=== PATIENT | female | born 1980 | race African-American/Black ===

== ENCOUNTER 2016-10-05 09:44 | Emergency (ER) | payer BC, OTHER ==
[2016-10-05 09:56] VITALS: TEMP 97.3; BMI 26.6
--- NOTE | 2016-10-05 10:11 | PDOC ---
History of Present Illness - General History Source: Patient, Old Records Exam Limitations: No Limitations - History of Present Illness Initial Comments: 10/05/16 10:28 The patient is a 35-year-old woman with a significant past medical history of hypertension, hypercholesterolemia, coronary artery disease, myocardial infarction, congestive heart failure, non-insulin dependent diabetes mellitus, severe gastroparesis, chronic kidney disease cervical Ca who presents to the emergency department via EMS for further evaluation of chest pain this morning. She woke up, had an episode of emesis (non-bloody/non-bilious) and experienced chest pain at approximately 6:00AM this morning. Patient admits that her symptoms are attributed to her gastroparesis. She states that her chest pain is mid-sternal,non radiating, sharp constant with a 10/10 in severity. She reports associated symptoms of nausea and diarrhea. She reports compliance with Reglan without significant relief. She recently had a rotator cuff surgery, for which she finished her narcotics. Previous endoscopy in the past, performed by her Cuff Maker, Dr. Wan Sifuentes. Patient is unaware when it was performed and the results. She denies fever, chills, cough, hemoptysis, diaphoresis, shortness of breath, headache. She denies jaw/ back pain lower extremity pain/swelling. She denies dysuria, hematuria, urinary frequency and urgency. Allergies: Cephalexin Monohydrate. Past Surgical History: Caesarian Section. Stent placements x3. Rotator cuff repair. Social History: Former tobacco use. History of drug abuse. Current Marijuana use. No ETOH use. Primary Care Physician: Dr. Tiago Jaeger [phone] Core Winder: Dr. Juan Manuel Ng [phone] Cuff Maker: Dr. Wan Sifuentes [phone] <Hyacinth Roberts - Last Filed: 10/05/16 11:48> <Sukhdeep Harper - Last Filed: 10/05/16 15:06> - General Chief Complaint: Chest Pain Stated Complaint: POST-SURG/ CHEST, SHOULDER PAIN Time Seen by Provider: 10/05/16 10:08 Past History <Hyacinth Roberts - Last Filed: 10/05/16 11:48> - Past Medical History Anemia: No Asthma: No Cancer: (cervical ca) Cardiac Disorders: Yes ([place] X 6) CVA: No COPD: No CHF: Yes Dementia: No Diabetes: Yes GI Disorders: Yes (gastroparesis) Disorders: No HTN: Yes Hypercholesterolemia: Yes Liver Disease: No Psychiatric Problems: Yes (anxiety) Suicide Attempt (Hx): No Seizures: No Thyroid Disease: No - Surgical History Abdominal Surgery: No Appendectomy: No Cardiac Surgery: Yes (4 STENTS) Cholecystectomy: No Lung Surgery: No Neurologic Surgery: No Orthopedic Surgery: No - Reproductive History (#): 5 Para: 0 Cervical CA: Yes Dysfunctional Uterine Bleeding: Yes Ectopic : Yes Endometrial CA: Yes Therapeutic (s) & number: Yes (1) Spontaneous : 4 - Immunization History Immunization Up to Date: Yes - Psycho/Social/Smoking Cessation Hx Anxiety: No Suicidal Ideation: No Smoking Status: Yes (QUIT 3 MONTHS AGO) Smoking History: Never smoked Have you smoked in the past 12 months: Yes Number of Cigarettes Smoked Daily: 1 If you are a former smoker, when did you quit?: 3 MONTHS 'Breaking Loose' booklet given: 08/25/16 Hx Alcohol Use: No Drug/Substance Use Hx: No Substance Use Type: None Hx Substance Use Treatment: No <Sukhdeep Harper - Last Filed: 10/05/16 15:06> - Past Medical History Allergies/Adverse Reactions: Allergies Allergy/AdvReac Type Severity Reaction Status Date / Time cephalexin monohydrate Allergy Severe Hives Verified 10/05/16 09:51 [From [employer]] Home Medications: Ambulatory Orders Aspirin [Aspirin EC] 81 mg PO DAILY 11/13/15 Acetaminophen [Tylenol .Regular Strength -] 650 mg PO Q6H PRN #0 tablet Atorvastatin Ca [Lipitor] 80 mg PO HS tablet 06/27/16 Labetalol HCl [Normodyne -] 200 mg PO BID tablet 06/27/16 Sitagliptin Phosphate [Januvia -] 25 mg PO DAILY@0700 tab 06/27/16 Metformin HCl 500 mg PO BID 08/25/16 Ondansetron [Zofran -] 4 mg PO BID PRN 08/25/16 Ticagrelor [Brilinta -] 90 mg PO BID 08/25/16 Oxycodone HCl/Acetaminophen [Percocet 5-325 mg Tablet] 1 - 2 tab PO Q6H #50 tab MDD 8 09/02/16 Ondansetron [Zofran *Odt*] 8 mg SL TID PRN #30 od.tablet 10/05/16 Review of Systems - Review of Systems Constitutional: No: Chills, Fever Respiratory: No: Cough, Shortness of Breath Cardiac (ROS): Yes: Chest Pain ABD/GI: Yes: Nausea, Vomiting. No: Diarrhea : No: Dysuria All Other Systems: Reviewed and Negative <Sukhdeep Harper - Last Filed: 10/05/16 15:06> *Physical Exam - Vital Signs Last Vital Signs Temp Pulse Resp BP Pulse Ox 97.3 F L 75 20 150/107 98 10/05/16 09:47 10/05/16 09:47 10/05/16 09:47 10/05/16 09:47 10/05/16 09:47 - Physical Exam Comments: 10/05/16 10:28 GENERAL: The patient is awake, alert, and fully oriented. Appears uncomfortable secondary to nausea. Sitting up. Speaking full sentences. HEAD: Normal with no signs of trauma. EYES: Pupils equal, round and reactive to light, extraocular movements intact, sclera anicteric, conjunctiva clear with no pallor. ENT: Ears normal, nares patent, oropharynx clear without exudates. Slightly dry mucous membranes. NECK: Normal range of motion, supple without lymphadenopathy, JVD, or masses. LUNGS: Breath sounds equal, clear to auscultation bilaterally. No wheeze/ crackles. HEART: Regular rate and rhythm, normal S1 and S2 without murmur or rub. ABDOMEN: Soft. There is some epigastric discomfort to palpation. Nondistended. BS wnl. No guarding or rebound. No palpable masses. No hepatosplenomegaly. EXTREMITIES: Normal range of motion, no edema. No clubbing or cyanosis. No cords, erythema, or tenderness. NEUROLOGICAL: Cranial nerves II through XII grossly intact. Normal speech. PSYCH: Normal mood, normal affect. SKIN: Warm, Dry, normal turgor, no rashes or lesions noted. <Hyacinth Roberts - Last Filed: 10/05/16 11:48> - Vital Signs Last Vital Signs Temp Pulse Resp BP Pulse Ox 97.3 F L 75 20 150/107 98 10/05/16 09:47 10/05/16 09:47 10/05/16 09:47 10/05/16 09:47 10/05/16 09:47 <Sukhdeep Harper - Last Filed: 10/05/16 15:06> Heart Score/ECG Review #1 ECG reviewed & interpreted by me at: 09:49 General ECG Interpretation: Sinus Rhythm, Normal Rate (75), Normal Intervals ( qtc 453), No acute ischemic changes Compared to previous ECG there are: No significant change (06/26/16) <Sukhdeep Harper - Last Filed: 10/05/16 15:06> ED Treatment Course - LABORATORY CBC & Chemistry Diagram: 10/05/16 10:17 10/05/16 10:55 <Hyacinth Roberts - Last Filed: 10/05/16 11:48> - LABORATORY CBC & Chemistry Diagram: 10/05/16 10:17 10/05/16 10:55 <Sukhdeep Harper - Last Filed: 10/05/16 15:06> Medical Decision Making - Medical Decision Making 10/05/16 10:59 A portion of this note was documented by scribe services under my direction. I have reviewed the details of the note, within reason, and agree with the documentation with the following case summary and management plan written by me. 36-year-old female with multiple medical problems including diabetic gastroparesis with some admissions in the past presents with nausea/vomiting/ chest pain typical of her gastroparesis exacerbations. Vitals as noted. Exam as noted with epigastric discomfort to palpation, slight dehydration 36-year-old female with likely exacerbation of her gastroparesis with nausea/ vomiting/chest discomfort, she has known CAD so will rule out primary cardiac process. Labs including troponin EKG, chest x-ray Pain control, nausea control, IV fluids, antacid Reassess 10/05/16 15:02 Slight dehydration on labs, otherwise no leukocytosis and normal troponin. UA was positive leuk esterase but no white blood cells. Patient feels much better after IV fluids and Zofran, tolerating by mouth, abdominal exam remains benign. No further chest pain. Agrees with discharge plan, understands return criteria. <Sukhdeep Harper Last Filed: 10/05/16 15:06> *DC/Admit/Observation/Transfer - Attestations Scribe Attestion: 10/05/16 10:28 Documentation prepared by Hyacinth Roberts, acting as medical librarian for Sukhdeep Harper MD. <Hyacinth Roberts - Last Filed: 10/05/16 11:48> <Sukhdeep Harper - Last Filed: 10/05/16 15:06> Diagnosis at time of Disposition: Diabetic gastroparesis, Chest discomfort - Discharge Dispostion Disposition: HOME Condition at time of disposition: Improved - Prescriptions Prescriptions: Ondansetron [Zofran *Odt*] 8 mg SL TID PRN #30 od.tablet PRN Reason: Nausea - Referrals Referrals: Tiago Jaeger MD [Primary Care Provider] - - Patient Instructions Printed Discharge Instructions: DI for Gastroparesis Additional Instructions: Activity as tolerated. Stay hydrated. Blood tests today showed some dehydration, otherwise no acute abnormalities. Continue your medications as previously prescribed by your physician. You should follow up with Dr. Jaeger as soon as possible regarding today's emergency department visit. Return to the emergency department for any new or concerning symptoms, particularly persistent or worsening pain, persistent vomiting or dehydration, chest pain or difficulty breathing.
[2016-10-05] MEDS ORDERED: SODIUM CHLORIDE 1,000 ML IV ONE (10:17)
[2016-10-05] MEDS ORDERED: METOCLOPRAMIDE HCL INJECTION 10 MG/2 ML VIAL IVPB ONE (10:17)
[2016-10-05] MEDS ORDERED: FAMOTIDINE 20 MG/50 ML IVPB 50 ML IVPB ONE ×2 (10:25→10:45)
[2016-10-05] MEDS ORDERED: HYDROmorphone HCL CARPU-JECT 1 MG/1 ML DISP.SYRIN IVPUSH ONE ×2 (10:25→12:38)
[2016-10-05] MEDS ORDERED: ONDANSETRON 4 MG/2 ML VIAL IVPUSH ONE ×2 (10:25→12:38)
[2016-10-05] MEDS ORDERED: ONDANSETRON 4 MG/2 ML VIAL ONE ×2 (10:31→12:49)
--- NOTE | 2016-10-05 10:31 | EKG ---
Test Reason : Blood Pressure : / mmHG Vent. Rate : 075 BPM Atrial Rate : 075 BPM P-R Int : 172 ms QRS Dur : 084 ms QT Int : 406 ms P-R-T Axes : 053 020 053 degrees QTc Int : 453 ms NORMAL SINUS RHYTHM POSSIBLE LEFT ATRIAL ENLARGEMENT BORDERLINE ECG WHEN COMPARED WITH ECG OF 26-JUN-2016 19:33, NO SIGNIFICANT CHANGE WAS FOUND Confirmed by ANDREI PERALTA MD ([id number]) on 10/05/2016 10:31:10 AM Referred By: Confirmed By:ANDREI PERALTA MD
[2016-10-05] MEDS ORDERED: HYDROmorphone HCL CARPU-JECT 1 MG/1 ML DISP.SYRIN ONE ×2 (10:35→12:49)
[2016-10-05 11:01] LABS: BASOPHIL 0.8 % (0-2.0); EOSINOPHIL 0.7 % (0-4.5); MCH 29.4 pg (25.7-33.7); MCHC 32.7 g/dl (32.0-36.0); MEAN PLT VOLUME 7.6 fl (7.5-11.1); NEUTROPHILS 81.5 % (42.8-82.8); PLATELET COUNT 300 K/MM3 (134-434); RDW 14.7 % (11.6-15.6); WHITE BLOOD COUNT 11.9 K/mm3 (4.0-10.0)
[2016-10-05 11:52] LABS: ALBUMIN 4.7 g/dl (3.4-5.0); BILIRUBIN,TOTAL 0.5 mg/dL (0.2-1.0); CALCIUM 9.7 mg/dL (8.5-10.1); CREATININE 1.1 mg/dL (0.55-1.02); TOT PROT 8.8 g/dl (6.4-8.2)
[2016-10-05 11:55] LABS: TROPONIN I < 0.02 ng/ml (0.00-0.05)
[2016-10-05 13:21] LABS: URINE APPEARANCE CLEAR; URINE BILIRUBIN NEGATIVE (NEGATIVE); URINE COLOR COLORLESS; URINE GLUCOSE (UA) 3+ (NEGATIVE); URINE KETONE 1+ (NEGATIVE); URINE NITRITE NEGATIVE (NEGATIVE); URINE PROTEIN NEGATIVE (NEGATIVE); URINE UROBILINOGEN NEGATIVE E.U./dl (0.2-1.0)
[2016-10-05 13:44] LABS: URINE BLOOD 2+ (NEGATIVE); URINE LEUK ESTERASE 3+ (NEGATIVE)
[2016-10-05 13:58] LABS: URINE MUCUS RARE; URINE RBC <1 /hpf (0-3)
[2016-10-05] MEDS ORDERED: NITROFURANTOIN MACROCRYSTAL 50 MG CAPSULE (FP) PO SCH (14:00)
[2016-10-05] MEDS ORDERED: NITROFURANTOIN MACROCRYSTAL 50 MG CAPSULE (FP) ONE (14:59)
[2016-10-05] MEDS ORDERED: ONDANSETRON *ODT* 4 MG TABLET SL ONE (15:08)
[2016-10-05 15:09] VITALS: BP 132/78; PULSE 78
[2016-10-05] MEDS ORDERED: ONDANSETRON *ODT* 4 MG TABLET ONE (15:11)
== END 2016-10-05 15:10 | disposition home or self-care (01) ==
LOC: JER 09:44
PROC: 3E033GC Introduction of Other Therapeutic Substance into Peripheral Vein, Percutaneous Approach (ICD-10-PCS; principal; 2016-10-05)
PROC: 3E033NZ Introduction of Analgesics, Hypnotics, Sedatives into Peripheral Vein, Percutaneous Approach (ICD-10-PCS; 2016-10-05)
PROC: 3E0337Z Introduction of Electrolytic and Water Balance Substance into Peripheral Vein, Percutaneous Approach (ICD-10-PCS; 2016-10-05)
DX: E11.43 Type 2 diabetes mellitus with diabetic autonomic (poly)neuropathy (principal); K31.84 Gastroparesis; I10 Essential (primary) hypertension; Z85.41 Personal history of malignant neoplasm of cervix uteri; E78.00 Pure hypercholesterolemia, unspecified; F41.9 Anxiety disorder, unspecified; Z95.5 Presence of coronary angioplasty implant and graft; I50.9 Heart failure, unspecified; Z87.891 Personal history of nicotine dependence
CPT/HCPCS: 36415; 80053; 81003; 81015; 82550; 82553; 83690; 83735; 84484; 84703; 85025; 93005; 93010; 99285-25

== ENCOUNTER 2016-10-05 22:55 | Emergency (ER) | payer BC ==
[2016-10-05 23:02] VITALS: BP 158/107; PULSE 125; TEMP 98.4; BMI 26.6
[2016-10-05] MEDS ORDERED: HYDROmorphone HCL CARPU-JECT 1 MG/1 ML DISP.SYRIN IVPB ONE (23:56)
[2016-10-05] MEDS ORDERED: FAMOTIDINE 20 MG/50 ML IVPB 50 ML IVPB ONE (23:56)
[2016-10-05] MEDS ORDERED: ONDANSETRON 4 MG/2 ML VIAL IVPB ONE (23:56)
[2016-10-06] MEDS ORDERED: HYDROmorphone HCL CARPU-JECT 1 MG/1 ML DISP.SYRIN ONE (00:04)
[2016-10-06] MEDS ORDERED: FAMOTIDINE 20 MG/50 ML IVPB 50 ML IVPB ONE (00:04)
[2016-10-06] MEDS ORDERED: ONDANSETRON 4 MG/2 ML VIAL ONE (00:04)
[2016-10-06 00:22] LABS: BASOPHIL 0.4 % (0-2.0); EOSINOPHIL 0.1 % (0-4.5); MCH 29.9 pg (25.7-33.7); MCHC 33.7 g/dl (32.0-36.0); MEAN CELL VOLUME 88.7 fl (80-96); MEAN PLT VOLUME 7.7 fl (7.5-11.1); NEUTROPHILS 85.2 % (42.8-82.8); PLATELET COUNT 346 K/MM3 (134-434); RDW 14.8 % (11.6-15.6); WHITE BLOOD COUNT 14.6 K/mm3 (4.0-10.0)
--- NOTE | 2016-10-06 00:38 | PDOC ---
[id number]: No Limitations - History of Present Illness Initial Comments: 10/06/16 00:46 The patient is a 36 year old female, with a significant past medical history of hypertension, hypercholesterolemia, coronary artery disease, myocardial infarction, congestive heart failure, non-insulin dependent diabetes mellitus, severe gastroparesis, chronic kidney disease, cervical CA, who presents to the emergency department with epigastric pain onset today. She reports that the patient radiates from mild to moderate, without radiation or modifying symptoms. She notes that she has been taking Reglan with minimal to no relief of her symptoms. The patient was seen in the ED earlier today for the same symptoms and was discharged same day after improvement of symptoms. The patient notes that she has had an endoscopy in the past but does not remember the results or when it was performed. She reports that her last marijuana use was 2 weeks ago. The patient denies shortness of breath, headache and dizziness. Denies fever, chills, nausea, vomit, diarrhea and constipation. Denies dysuria, frequency, urgency and hematuria. Allergies: Cephalexin Monohydrate. Past Surgical History: Caesarian Section. Stent placements x3. Rotator cuff repair. Social History: Former tobacco use. History of drug abuse. Current Marijuana use. No ETOH use. Primary Care Physician: Dr. Tiago Jaeger [phone] Photolithographer: Dr. Juan Manuel Ng [phone] Medical Assistant Instructor: Dr. Wan Sifuentes [phone] <Keshawn Castro - Last Filed: 10/06/16 00:46> - General History Source: Patient Exam Limitations: No Limitations <Juan Meyers - Last Filed: 10/10/16 07:53> - General Chief Complaint: Chest Pain Stated Complaint: CHEST PAIN Time Seen by Provider: 10/05/16 23:33 Past History <Keshawn Castro - Last Filed: 10/06/16 00:46> - Past Medical History Anemia: No Asthma: No Cancer: (cervical ca) Cardiac Disorders: Yes ([place] X 6) CVA: No COPD: No CHF: Yes Dementia: No Diabetes: Yes GI Disorders: Yes (gastroparesis) Disorders: No HTN: Yes Hypercholesterolemia: Yes Liver Disease: No Psychiatric Problems: Yes (anxiety) Suicide Attempt (Hx): No Seizures: No Thyroid Disease: No - Surgical History Abdominal Surgery: No Appendectomy: No Cardiac Surgery: Yes (4 STENTS) Cholecystectomy: No Lung Surgery: No Neurologic Surgery: No Orthopedic Surgery: No - Reproductive History (#): 5 Para: 0 Cervical CA: Yes Dysfunctional Uterine Bleeding: Yes Ectopic : Yes Endometrial CA: Yes Therapeutic (s) & number: Yes (1) Spontaneous : 4 - Immunization History Immunization Up to Date: Yes - Psycho/Social/Smoking Cessation Hx Anxiety: No Suicidal Ideation: No Smoking Status: Yes (QUIT 3 MONTHS AGO) Smoking History: Never smoked Have you smoked in the past 12 months: Yes Number of Cigarettes Smoked Daily: 1 If you are a former smoker, when did you quit?: t-19 Information on smoking cessation initiated: No 'Breaking Loose' booklet given: 08/25/16 Hx Alcohol Use: No Drug/Substance Use Hx: No Substance Use Type: Marijuana Hx Substance Use Treatment: No <Juan Meyers - Last Filed: 10/10/16 07:53> - Past Medical History Allergies/Adverse Reactions: Allergies Allergy/AdvReac Type Severity Reaction Status Date / Time cephalexin monohydrate Allergy Severe Hives Verified 10/05/16 23:00 [From [employer]] Home Medications: Ambulatory Orders Aspirin [Aspirin EC] 81 mg PO DAILY 11/13/15 Acetaminophen [Tylenol .Regular Strength -] 650 mg PO Q6H PRN #0 tablet Metformin HCl 500 mg PO BID 08/25/16 Ticagrelor [Brilinta -] 90 mg PO BID 08/25/16 Oxycodone HCl/Acetaminophen [Percocet 5-325 mg Tablet] 1 - 2 tab PO Q6H #50 tab MDD 8 09/02/16 Ondansetron [Zofran *Odt*] 8 mg SL TID PRN #30 od.tablet 10/05/16 Atorvastatin Ca [Lipitor] 80 mg PO HS #30 tablet 10/09/16 Labetalol HCl [Normodyne -] 200 mg PO BID #60 tablet 10/09/16 Sitagliptin Phosphate [Januvia -] 25 mg PO DAILY@0700 #30 tab 10/09/16 Ticagrelor [Brilinta -] 90 mg PO BID tablet 10/09/16 Review of Systems - Review of Systems Able to Perform ROS?: Yes Comments:: 10/06/16 00:46 GENERAL/CONSTITUTIONAL: No fever or chills. No weakness. HEAD, EYES, EARS, NOSE AND THROAT: No change in vision. No ear pain or discharge. No sore throat. CARDIOVASCULAR: No chest pain or shortness of breath RESPIRATORY: No cough, wheezing, or hemoptysis. GASTROINTESTINAL: +Epigastric pain. No nausea, vomiting, diarrhea or constipation. GENITOURINARY: No dysuria, frequency, or change in urination. MUSCULOSKELETAL: No joint or muscle swelling or pain. No neck or back pain. SKIN: No rash NEUROLOGIC: No headache, vertigo, loss of consciousness, or change in strength/ sensation. ENDOCRINE: No increased thirst. No abnormal weight change HEMATOLOGIC/LYMPHATIC: No anemia, easy bleeding, or history of blood clots. ALLERGIC/IMMUNOLOGIC: No hives or skin allergy. <Keshawn Castro - Last Filed: 10/06/16 00:46> *Physical Exam - Vital Signs Last Vital Signs Temp Pulse Resp BP Pulse Ox 98.4 F 125 H 158/107 99 10/05/16 23:00 10/05/16 23:00 10/05/16 23:00 10/05/16 23:00 - Physical Exam Comments: 10/06/16 00:46 GENERAL: Awake, alert, and fully oriented, in no acute distress HEAD: No signs of trauma, normocephalic, atraumatic EYES: PERRLA, EOMI, sclera anicteric, conjunctiva clear ENT: Auricles normal inspection, hearing grossly normal, nares patent, oropharynx clear without exudates. Moist mucosa NECK: Normal ROM, supple, no lymphadenopathy, JVD, or masses LUNGS: No distress, speaks full sentences, clear to auscultation bilaterally HEART: Regular rate and rhythm, normal S1 and S2, no murmurs, rubs or gallops, peripheral pulses normal and equal bilaterally. ABDOMEN: Soft, nontender, normoactive bowel sounds. No guarding, no rebound. No masses EXTREMITIES: Normal inspection, Normal range of motion, no edema. No clubbing or cyanosis. NEUROLOGICAL: Cranial nerves II through XII grossly intact. Normal speech, normal gait, no focal sensorimotor deficits SKIN: Warm, Dry, normal turgor, no rashes or lesions noted. <GloriaKeshawnjayy Burrell - Last Filed: 10/06/16 00:46> - Vital Signs Last Vital Signs Temp Pulse Resp BP Pulse Ox 98.4 F 125 H 158/107 99 10/05/16 23:00 10/05/16 23:00 10/05/16 23:00 10/05/16 23:00 - Physical Exam Comments: 10/10/16 07:53 CORRECTION TO SCRIBE NOTE: +TTP epigastric. Ocasio sign negative. <Juan Meyers - Last Filed: 10/10/16 07:53> Heart Score/ECG Review - History History: Slightly suspicious - Electrocardiogram EKG: Normal - Age Age: </= 45 - Risk Factors Based on the list above the patient has:: >/=3 risk factors or Hx atherosclerotic disease - Troponin Troponin: </= normal limit - Score Heart Score - Total: 2 #1 ECG reviewed & interpreted by me at: 00:50 10/06/16 01:11 NSR 100, QTC 497 msec, normal axis, normal intervals, no std/brandon <Juan Meyers - Last Filed: 10/10/16 07:53> ED Treatment Course - LABORATORY CBC & Chemistry Diagram: 10/06/16 00:14 10/06/16 00:14 - ADDITIONAL ORDERS Additional order review: 10/06/16 00:14 RBC 4.63 MCV 88.7 MCHC 33.7 RDW 14.8 MPV 7.7 Neutrophils % 85.2 H Lymphocytes % 9.3 Monocytes % 5.0 Eosinophils % 0.1 D Basophils % 0.4 - Medications Given in the ED: ED Medications Discontinued Medications Generic Name Dose Route Start Last Admin Trade Name Freq PRN Reason Stop Dose Admin Hydromorphone HCl 1 mg 10/05/16 23:56 10/06/16 00:12 Dilaudid Injection - IVPB 10/05/16 23:57 1 mg ONCE ONE Administration Famotidine/Sodium Chloride 50 mls @ 100 mls/hr 10/05/16 23:56 10/06/16 00:12 Pepcid 20 Mg Premixed Ivpb - IVPB 10/06/16 00:25 100 mls/hr ONCE ONE Administration Ondansetron HCl 4 mg 10/05/16 23:56 10/06/16 00:12 Zofran Injection IVPB 10/05/16 23:57 4 mg ONCE ONE Administration <Keshawn Castro - Last Filed: 10/06/16 00:46> - LABORATORY CBC & Chemistry Diagram: 10/06/16 00:14 10/06/16 00:14 - ADDITIONAL ORDERS Additional order review: 10/06/16 00:14 RBC 4.63 MCV 88.7 MCHC 33.7 RDW 14.8 MPV 7.7 Neutrophils % 85.2 H Lymphocytes % 9.3 Monocytes % 5.0 Eosinophils % 0.1 D Basophils % 0.4 - Medications Given in the ED: ED Medications Discontinued Medications Generic Name Dose Route Start Last Admin Trade Name Obdulioq PRN Reason Stop Dose Admin Hydromorphone HCl 1 mg 10/05/16 23:56 10/06/16 00:12 Dilaudid Injection - IVPB 10/05/16 23:57 1 mg ONCE ONE Administration Famotidine/Sodium Chloride 50 mls @ 100 mls/hr 10/05/16 23:56 10/06/16 00:12 Pepcid 20 Mg Premixed Ivpb - IVPB 10/06/16 00:25 100 mls/hr ONCE ONE Administration Ondansetron HCl 4 mg 10/05/16 23:56 10/06/16 00:12 Zofran Injection IVPB 10/05/16 23:57 4 mg ONCE ONE Administration <Juan Meyers - Last Filed: 10/10/16 07:53> Medical Decision Making - Medical Decision Making 10/06/16 00:38 A portion of this note was documented by scribe services under my direction. I have reviewed the details of the note, within reason, and agree with the documentation with the following case summary and management plan written by me. Patient treated in the ED. Nursing notes are reviewed and incorporated into the medical decision-making. Vital signs reviewed. Peripheral IV access obtained by the nurse, laboratory studies are drawn and sent, reviewed and interpreted by myself. Vital Signs Temp Pulse Resp BP Pulse Ox 98.4 F 125 H 158/107 99 10/05/16 23:00 10/05/16 23:00 10/05/16 23:00 10/05/16 23:00 36 year old female with past medical history of hypertension, hyperlipidemia, coronary disease, myocardial infarction, congestive heart failure, diabetes, severe gastroparesis, chronic renal disease returns back to the emergency department for persistent gastroparesis. The patient was seen earlier today for similar symptoms where she was worked up and was discharged. Patient reports that this is a epigastric pain that radiates into her chest. Not associated with shortness of breath or diaphoresis. Denies midsternal chest pressure. States that she is not taking any medications but the symptoms worsen. Again, this is her gastroparesis. Patient reports that this is her chronic gastroparesis. She denies any recent marijuana use states that this occurred 2 weeks ago. I suspect that this acute on chronic abdominal pain. We'll obtain labs, EKG and reassess. 10/06/16 01:11 CBC, BMP 10/06/16 00:14 10/06/16 00:14 CMP Sodium 134 mmol/L (136-145) L 10/06/16 00:14 Potassium 4.9 mmol/L (3.5-5.1) 10/06/16 00:14 Chloride 98 mmol/L (98-107) 10/06/16 00:14 Carbon Dioxide 21 mmol/L (21-32) 10/06/16 00:14 Anion Gap 15 (8-16) 10/06/16 00:14 BUN 14 mg/dL (7-18) 10/06/16 00:14 Creatinine 1.4 mg/dL (0.55-1.02) H D 10/06/16 00:14 Creat Clearance w eGFR 42.08 (>60) 10/06/16 00:14 Random Glucose 245 mg/dL (74-106) H 10/06/16 00:14 Calcium 9.9 mg/dL (8.5-10.1) 10/06/16 00:14 Total Bilirubin 0.5 mg/dL (0.2-1.0) 10/06/16 00:14 AST 37 U/L (15-37) D 10/06/16 00:14 ALT 31 U/L (12-78) 10/06/16 00:14 Alkaline Phosphatase 66 U/L (45-117) D 10/06/16 00:14 Creatine Kinase 349 IU/L (26-192) H D 10/06/16 00:14 Troponin I < 0.02 ng/ml (0.00-0.05) 10/06/16 00:14 Total Protein 9.9 g/dl (6.4-8.2) H 10/06/16 00:14 Albumin 5.2 g/dl (3.4-5.0) H 10/06/16 00:14 Lipase 231 U/L (73-393) 10/06/16 00:14 Repeat HR is 90. Patient reports significant relief and resolution of symptoms. Again, I suspect that this is gastroparesis. I had instructed the patient that she needs to follow up with Dr. Sifuentes as an outpatient. Counselled regarding marijuana use. The WBC is slightly elevated compared to this morning which I suspect is reactive. And the Cr is 1.4, which is slightly elevated from 1.1 this morning. 500cc of IVF given for the Cr. Will d/c with PMD follow up. I discussed the physical exam findings, ancillary test results and final diagnoses with the patient. I answered all of the patient's questions. The patient was satisfied with the care received and felt comfortable with the discharge plan and treatment plan. The patient will call their primary care physician within 24 hours to arrange follow-up and will return to the Emergency Department with any new, persistant or worsening symptoms. 10/06/16 01:14 Pt will go home by cab. <Juan Meyers - Last Filed: 10/10/16 07:53> *DC/Admit/Observation/Transfer - Attestations Scribe Attestion: 10/06/16 00:47 Documentation prepared by Keshawn Castro, acting as certified medical asst for Juan Meyers MD. <Keshawn Castro - Last Filed: 10/06/16 00:46> - Discharge Dispostion Admit: No <Juan Meyers - Last Filed: 10/10/16 07:53> Diagnosis at time of Disposition: Gastroparesis - Discharge Dispostion Disposition: HOME Condition at time of disposition: Improved - Referrals Referrals: Tiago Jaeger MD [Primary Care Provider] - Wan Sifuentes MD [Staff Physician] - - Patient Instructions Printed Discharge Instructions: DI for Gastroparesis Additional Instructions: Please follow up with your primary care physician and electronic pagination system operator.
[2016-10-06 00:48] LABS: ALBUMIN 5.2 g/dl (3.4-5.0); ANION GAP 15 (8-16); BILIRUBIN,TOTAL 0.5 mg/dL (0.2-1.0); CALCIUM 9.9 mg/dL (8.5-10.1); CO2 21 mmol/L (21-32); CREATININE 1.4 mg/dL (0.55-1.02); GLUCOSE,RANDOM 245 mg/dL (74-106); SGPT/ALT 31 U/L (12-78); TOT PROT 9.9 g/dl (6.4-8.2)
[2016-10-06 00:50] LABS: ALK PHOS 66 U/L (45-117); TROPONIN I < 0.02 ng/ml (0.00-0.05)
[2016-10-06 00:55] LABS: SGOT/AST 37 U/L (15-37)
[2016-10-06] MEDS ORDERED: SODIUM CHLORIDE 500 ML IV STA (00:57)
--- NOTE | 2016-10-06 15:37 | EKG ---
Test Reason : Blood Pressure : / mmHG Vent. Rate : 100 BPM Atrial Rate : 100 BPM P-R Int : 150 ms QRS Dur : 076 ms QT Int : 386 ms P-R-T Axes : 067 042 050 degrees QTc Int : 497 ms NORMAL SINUS RHYTHM POSSIBLE LEFT ATRIAL ENLARGEMENT PROLONGED QT ABNORMAL ECG WHEN COMPARED WITH ECG OF 05-OCT-2016 09:49, NO SIGNIFICANT CHANGE WAS FOUND Confirmed by DANI BHAKTA MD ([id number]) on 10/06/2016 3:36:43 PM Referred By: Confirmed By:DANI BHAKTA MD
== END 2016-10-06 01:35 | disposition home or self-care (01) ==
LOC: JER 22:55
PROC: 3E0337Z Introduction of Electrolytic and Water Balance Substance into Peripheral Vein, Percutaneous Approach (ICD-10-PCS; principal; 2016-10-05)
PROC: 3E033GC Introduction of Other Therapeutic Substance into Peripheral Vein, Percutaneous Approach (ICD-10-PCS; 2016-10-05)
PROC: 3E033NZ Introduction of Analgesics, Hypnotics, Sedatives into Peripheral Vein, Percutaneous Approach (ICD-10-PCS; 2016-10-05)
PROC: 3E033GC Introduction of Other Therapeutic Substance into Peripheral Vein, Percutaneous Approach (ICD-10-PCS; 2016-10-05)
DX: K31.84 Gastroparesis (principal); I25.2 Old myocardial infarction; I25.10 Atherosclerotic heart disease of native coronary artery without angina pectoris; I10 Essential (primary) hypertension; Z95.5 Presence of coronary angioplasty implant and graft; E11.9 Type 2 diabetes mellitus without complications; Z79.4 Long term (current) use of insulin; Z79.84 Long term (current) use of oral hypoglycemic drugs; E78.00 Pure hypercholesterolemia, unspecified; F41.9 Anxiety disorder, unspecified
CPT/HCPCS: 36415; 80053; 82550; 83690; 84484; 85025; 93005; 93010; 99284-25

== ENCOUNTER 2016-10-06 09:43 | Emergency (ER) | payer BC ==
[2016-10-06 09:49] VITALS: BMI 26.6
[2016-10-06] MEDS ORDERED: SODIUM CHLORIDE 0.9% 500 ML INFUS.BAG IV ONE (10:27)
[2016-10-06] MEDS ORDERED: ONDANSETRON 4 MG/2 ML VIAL IVPB ONE ×2 (10:27→14:08)
[2016-10-06] MEDS ORDERED: HYDROmorphone HCL CARPU-JECT 1 MG/1 ML DISP.SYRIN IVPUSH ONE ×2 (10:27→11:54)
--- NOTE | 2016-10-06 10:32 | PDOC ---
History of Present Illness - General Chief Complaint: Pain Stated Complaint: GASTROPARESIS (RE-VISIT) Time Seen by Provider: 10/06/16 10:11 - History of Present Illness Initial Comments: 10/06/16 10:31 36-year-old female with a past medical history of hypertension, hyperlipidemia, CAD, [place], stents, CHF, diabetes, severe gastroparesis, with multiple prior ER visits for abdominal pain vomiting and gastroparesis, CKD, and cervical CA She presents to the emergency department with exacerbation of her gastroparesis , with severe abdominal pain, nausea and vomiting, and unable to keep anything down at all since yesterday a.m. The vomitus is nonbloody and nonbilious The abdominal pain is diffuse She denies any diarrhea She denies any fevers or chills She denies any chest pain or shortness of breath Patient is in severe pain and no further history is available at this time Allergies: Cephalexin Monohydrate. Past Surgical History: Caesarian Section. Stent placements x3. Rotator cuff repair. Social History: Former tobacco use. History of drug abuse. Current Marijuana use. No ETOH use. Primary Care Physician: Dr. Tiago Jaeger [phone] Refuse Collector Supervisor: Dr. Juan Manuel Ng [phone] Photocomposing Keyboard Operator: Dr. Wan Sifuentes [phone] Patient was here at 1 AM a with similar symptoms, was hydrated, symptoms were controlled, and she was sent home, but continued to worsen at home, prompting her to come back to the emergency department Past History - Past Medical History Allergies/Adverse Reactions: Allergies Allergy/AdvReac Type Severity Reaction Status Date / Time cephalexin monohydrate Allergy Severe Hives Verified 10/06/16 09:49 [From Keflex] Home Medications: Ambulatory Orders Aspirin [Aspirin EC] 81 mg PO DAILY 11/13/15 Acetaminophen [Tylenol .Regular Strength -] 650 mg PO Q6H PRN #0 tablet Atorvastatin Ca [Lipitor] 80 mg PO HS tablet 06/27/16 Labetalol HCl [Normodyne -] 200 mg PO BID tablet 06/27/16 Sitagliptin Phosphate [Januvia -] 25 mg PO DAILY@0700 tab 06/27/16 Metformin HCl 500 mg PO BID 08/25/16 Ticagrelor [Brilinta -] 90 mg PO BID 08/25/16 Oxycodone HCl/Acetaminophen [Percocet 5-325 mg Tablet] 1 - 2 tab PO Q6H #50 tab MDD 8 09/02/16 Ondansetron [Zofran *Odt*] 8 mg SL TID PRN #30 od.tablet 10/05/16 Anemia: No Asthma: No Cancer: (cervical ca) Cardiac Disorders: Yes ([place] X 6) CVA: No COPD: No CHF: Yes Dementia: No Diabetes: Yes GI Disorders: Yes (gastroparesis) Disorders: No HTN: Yes Hypercholesterolemia: Yes Liver Disease: No Psychiatric Problems: Yes (anxiety) Suicide Attempt (Hx): No Seizures: No Thyroid Disease: No - Surgical History Abdominal Surgery: No Appendectomy: No Cardiac Surgery: Yes (4 STENTS) Cholecystectomy: No Lung Surgery: No Neurologic Surgery: No Orthopedic Surgery: No - Reproductive History (#): 5 Para: 0 Cervical CA: Yes Dysfunctional Uterine Bleeding: Yes Ectopic : Yes Endometrial CA: Yes Therapeutic (s) & number: Yes (1) Spontaneous : 4 - Immunization History Immunization Up to Date: Yes - Psycho/Social/Smoking Cessation Hx Anxiety: No Suicidal Ideation: No Smoking Status: Yes (QUIT 3 MONTHS AGO) Smoking History: Never smoked Have you smoked in the past 12 months: Yes Number of Cigarettes Smoked Daily: 1 If you are a former smoker, when did you quit?: t-19 Information on smoking cessation initiated: No 'Breaking Loose' booklet given: 08/25/16 Hx Alcohol Use: No Drug/Substance Use Hx: No Substance Use Type: Marijuana Hx Substance Use Treatment: No *Physical Exam - Vital Signs Last Vital Signs Temp Pulse Resp BP Pulse Ox 98.7 F 115 H 18 185/130 100 10/06/16 09:45 10/06/16 09:45 10/06/16 09:45 10/06/16 09:45 10/06/16 09:45 - Physical Exam Comments: 10/06/16 10:35 Physical exam Last Vital Signs Temp Pulse Resp BP Pulse Ox 98.7 F 115 H 18 185/130 100 10/06/16 09:45 10/06/16 09:45 10/06/16 09:45 10/06/16 09:45 10/06/16 09:45 GENERAL: The patient is awake, alert, and fully oriented, and in no apparent distress. HEAD: Normal with no signs of trauma. EYES: Pupils equal, round and reactive to light, extraocular movements intact, sclera anicteric, conjunctiva are normal. ENT: TMs normal, nares patent, oropharynx clear without exudates. Moist mucous membranes. NECK: Normal range of motion, supple without lymphadenopathy, JVD, or masses. LUNGS: Breath sounds equal, clear to auscultation bilaterally. No wheezes, and no crackles. HEART: Regular rate and rhythm, normal S1 and S2 without murmur, rub or gallop. ABDOMEN: Soft, nontender, normoactive bowel sounds. No guarding, no rebound. No masses appreciated. EXTREMITIES: Normal range of motion, no edema. No clubbing or cyanosis. No cords, erythema, or tenderness. NEUROLOGICAL: Cranial nerves II through XII grossly intact. Normal speech, normal gait. PSYCH: Normal mood, normal affect. SKIN: Warm, Dry, normal turgor, no rashes or lesions noted. ED Treatment Course - LABORATORY CBC & Chemistry Diagram: 10/06/16 10:59 10/06/16 10:59 Medical Decision Making - Medical Decision Making 10/06/16 12:28 36-year-old female with diabetic gastroparesis with chronic recurrent abdominal pain and vomiting She was here at 1 AM, went home, but came back with worsening symptoms 10/06/16 14:13 Labwork reviewed, and at baseline when compared to the last prior 4 labworks Laboratory Results - last 24 hr 10/06/16 10/06/16 10:59 10:59 WBC 12.6 H RBC 4.27 Hgb 12.7 Hct 37.5 MCV 87.7 MCHC 33.9 RDW 14.5 Plt Count 305 MPV 7.6 Sodium 135 L Potassium 4.5 Chloride 98 Carbon Dioxide 21 Anion Gap 16 BUN 20 H D Creatinine 1.3 H Creat Clearance w eGFR 45.84 Random Glucose 255 H Calcium 9.2 Magnesium 1.8 Total Bilirubin 0.5 AST 26 D ALT 27 Alkaline Phosphatase 55 Creatine Kinase 499 H D CK-MB (CK-2) 4.771 H Troponin I 0.02 Total Protein 9.0 H Albumin 4.8 Patient feeling much better after IV hydration Zofran and pain control and wants to go home 10/06/16 14:23 EKG Normal sinus rhythm 77, left axis deviation -2 Normal AV and IV conduction time Normal QTC Borderline EKG When compared to the EKG of 10/05/16 Today's EKG is unchanged from the prior EKG 10/06/16 14:26 Vital Signs - 24 hr 10/06/16 10/06/16 09:45 14:00 Temperature 98.7 F 97.2 F L Pulse Rate 115 H Pulse Rate [ 91 H Right] Respiratory 18 18 Rate Blood Pressure 185/130 Blood Pressure 161/102 [Left Arm] O2 Sat by Pulse 100 100 Oximetry (%) Patient feeling much better and wants to go home She states that she has 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 Exacerbation of abdominal pain and vomiting from diabetic gastroparesis-improved *DC/Admit/Observation/Transfer Diagnosis at time of Disposition: Diabetic gastroparesis, Nausea and vomiting - Discharge Dispostion Disposition: HOME Condition at time of disposition: Improved - Referrals Referrals: Tiago Jaeger MD [Primary Care Provider] - Call tomorrow - Patient Instructions Additional Instructions: Clear liquid diet for the next 24 hours Increase fluid intake Zofran as needed for nausea Followup with your primary care physician in 24-48 hours Return immediately if you worsen in any way Take your medications as directed
[2016-10-06] MEDS ORDERED: ONDANSETRON 4 MG/2 ML VIAL ONE ×2 (11:11→14:27)
[2016-10-06] MEDS ORDERED: HYDROmorphone HCL CARPU-JECT 1 MG/1 ML DISP.SYRIN ONE ×2 (11:11→12:03)
[2016-10-06 11:28] LABS: MCH 29.8 pg (25.7-33.7); MCHC 33.9 g/dl (32.0-36.0); MEAN CELL VOLUME 87.7 fl (80-96); MEAN PLT VOLUME 7.6 fl (7.5-11.1); PLATELET COUNT 305 K/MM3 (134-434); RDW 14.5 % (11.6-15.6); WHITE BLOOD COUNT 12.6 K/mm3 (4.0-10.0)
[2016-10-06 11:50] LABS: ALBUMIN 4.8 g/dl (3.4-5.0); BILIRUBIN,TOTAL 0.5 mg/dL (0.2-1.0); CALCIUM 9.2 mg/dL (8.5-10.1); CREATININE 1.3 mg/dL (0.55-1.02); MAGNESIUM 1.8 mg/dL (1.8-2.4)
[2016-10-06 11:52] LABS: TROPONIN I 0.02 ng/ml (0.00-0.05)
[2016-10-06 14:26] VITALS: BP 161/102; PULSE 91; TEMP 97.2
--- NOTE | 2016-10-06 16:52 | EKG ---
Test Reason : Blood Pressure : / mmHG Vent. Rate : 077 BPM Atrial Rate : 077 BPM P-R Int : 158 ms QRS Dur : 076 ms QT Int : 406 ms P-R-T Axes : 043 -02 033 degrees QTc Int : 459 ms NORMAL SINUS RHYTHM POSSIBLE LEFT ATRIAL ENLARGEMENT BORDERLINE ECG WHEN COMPARED WITH ECG OF 06-OCT-2016 00:48, NO SIGNIFICANT CHANGE WAS FOUND Confirmed by DANI BHAKTA MD ([id number]) on 10/06/2016 4:52:21 PM Referred By: Confirmed By:DANI BHAKTA MD
== END 2016-10-06 14:36 | disposition home or self-care (01) ==
LOC: JER 09:43
PROC: 3E033NZ Introduction of Analgesics, Hypnotics, Sedatives into Peripheral Vein, Percutaneous Approach (ICD-10-PCS; principal; 2016-10-06)
PROC: 3E033GC Introduction of Other Therapeutic Substance into Peripheral Vein, Percutaneous Approach (ICD-10-PCS; 2016-10-06)
DX: E11.43 Type 2 diabetes mellitus with diabetic autonomic (poly)neuropathy (principal); K31.84 Gastroparesis; Z79.84 Long term (current) use of oral hypoglycemic drugs; I25.2 Old myocardial infarction; Z87.891 Personal history of nicotine dependence; I25.10 Atherosclerotic heart disease of native coronary artery without angina pectoris; I10 Essential (primary) hypertension; Z95.5 Presence of coronary angioplasty implant and graft; N18.9 Chronic kidney disease, unspecified; Z85.41 Personal history of malignant neoplasm of cervix uteri
CPT/HCPCS: 36415; 80053; 82550; 82553; 83735; 84484; 85027; 93005; 93010; 99282-25

== ENCOUNTER 2016-10-06 21:27 | Inpatient (IN) | payer BC, MEDICARE ==
[2016-10-06] MEDS ORDERED: METOCLOPRAMIDE HCL INJECTION 10 MG/2 ML VIAL IVPUSH ONE (22:47)
[2016-10-06] MEDS ORDERED: ONDANSETRON 4 MG/2 ML VIAL IVPB ONE (22:47)
[2016-10-06] MEDS ORDERED: LABETALOL HCL 5 MG/1 ML (100MG/20 ML VIAL) IVPUSH ONE ×2 (22:48→23:42)
[2016-10-06] MEDS ORDERED: NITROGLYCERIN 2% OINTMENT - 1GM PACKET TD ONE ×2 (22:48→22:53)
[2016-10-06] MEDS ORDERED: ONDANSETRON 4 MG/2 ML VIAL ONE (22:53)
[2016-10-06] MEDS ORDERED: METOCLOPRAMIDE HCL INJECTION 10 MG/2 ML VIAL ONE (22:53)
[2016-10-06] MEDS ORDERED: LABETALOL HCL 5 MG/1 ML (100MG/20 ML VIAL) ONE (23:14)
--- NOTE | 2016-10-06 23:40 | PDOC ---
[id number] No Limitations <Rika Deluna - Last Filed: 10/06/16 23:54> <Femi Bower - Last Filed: 10/14/16 03:19> - General Chief Complaint: Chest Pain Stated Complaint: NAUSEA Time Seen by Provider: 10/06/16 22:13 - History of Present Illness Initial Comments: 10/06/16 23:42 The patient is a 36 year old female, with significant past medical history of severe gastroparesis, HTN, HLD, CAD, [place], CHF, NIDDM, chronic kidney disease, and cervical cancer. This is the patient's 4th visit to the ER within the past 2 days for persistent nausea and vomiting. The patient has returned to the ER with chest pain as well as continued nausea and vomiting. She states that the chest pain started yesterday, is localized to the middle of the chest, and is 13 /10 in severity. She states that these symptoms are similar to those she experienced in the past with gastroparesis. Allergies: Cephalexin Monohydrate. Past Surgical History: Caesarian Section. Stent placements x3. Rotator cuff repair. Social History: Former tobacco use. History of drug abuse. Current Marijuana use. No ETOH use. Primary Care Physician: Dr. Tiago Jaeger [phone] Medical Education Manager: Dr. Juan Manuel Ng [phone] Water Resource Engineer: Dr. Wan Sifuentes [phone] (Rika Deluna) Past History <Rika Deluna - Last Filed: 10/06/16 23:54> - Past Medical History Anemia: No Asthma: No Cancer: (cervical ca) Cardiac Disorders: Yes ([place] X 6) CVA: No COPD: No CHF: Yes Dementia: No Diabetes: Yes GI Disorders: Yes (gastroparesis) Disorders: No HTN: Yes Hypercholesterolemia: Yes Liver Disease: No Psychiatric Problems: Yes (anxiety) Suicide Attempt (Hx): No Seizures: No Thyroid Disease: No - Surgical History Abdominal Surgery: No Appendectomy: No Cardiac Surgery: Yes (4 STENTS) Cholecystectomy: No Lung Surgery: No Neurologic Surgery: No Orthopedic Surgery: No - Reproductive History (#): 5 Para: 0 Cervical CA: Yes Dysfunctional Uterine Bleeding: Yes Ectopic : Yes Endometrial CA: Yes Therapeutic (s) & number: Yes (1) Spontaneous : 4 - Immunization History Immunization Up to Date: Yes - Psycho/Social/Smoking Cessation Hx Anxiety: No Suicidal Ideation: No Smoking Status: Yes (QUIT 3 MONTHS AGO) Smoking History: Never smoked Have you smoked in the past 12 months: Yes Number of Cigarettes Smoked Daily: 1 If you are a former smoker, when did you quit?: t-19 Information on smoking cessation initiated: No 'Breaking Loose' booklet given: 08/25/16 Hx Alcohol Use: No Drug/Substance Use Hx: No Substance Use Type: Marijuana Hx Substance Use Treatment: No <Femi Bower - Last Filed: 10/14/16 03:19> - Past Medical History Allergies/Adverse Reactions: Allergies Allergy/AdvReac Type Severity Reaction Status Date / Time cephalexin monohydrate Allergy Severe Hives Verified 10/06/16 21:34 [From Keflex] Home Medications: Ambulatory Orders Aspirin [Aspirin EC] 81 mg PO DAILY 11/13/15 Acetaminophen [Tylenol .Regular Strength -] 650 mg PO Q6H PRN #0 tablet Metformin HCl 500 mg PO BID 08/25/16 Ticagrelor [Brilinta -] 90 mg PO BID 08/25/16 Oxycodone HCl/Acetaminophen [Percocet 5-325 mg Tablet] 1 - 2 tab PO Q6H #50 tab MDD 8 09/02/16 Ondansetron [Zofran *Odt*] 8 mg SL TID PRN #30 od.tablet 10/05/16 Atorvastatin Ca [Lipitor] 80 mg PO HS #30 tablet 10/09/16 Labetalol HCl [Normodyne -] 200 mg PO BID #60 tablet 10/09/16 Sitagliptin Phosphate [Januvia -] 25 mg PO DAILY@0700 #30 tab 10/09/16 Ticagrelor [Brilinta -] 90 mg PO BID tablet 10/09/16 Cardiac Specific PMH - Complaint Specific PMHX Pacemaker: No <Femi Bower - Last Filed: 10/14/16 03:19> Review of Systems - Review of Systems Able to Perform ROS?: Yes <Rika Deluna - Last Filed: 10/06/16 23:54> <Femi Bower - Last Filed: 10/14/16 03:19> - Review of Systems Comments:: 10/06/16 23:47 CONSTITUTIONAL: No fever, no chills, no fatigue EYES: No visual changes ENT: No ear pain, no sore throat CARDIOVASCULAR: +chest pain. No palpitations RESPIRATORY: No cough, no SOB GI: +nausea, vomiting. No abdominal pain, no constipation, no diarrhea GENITOURINARY: No dysuria, no frequency, no hematuria MUSKULOSKELETAL: No backpain, no joint pain, no myalgias SKIN: No rash NEURO: No headache (Rika Deluna) *Physical Exam <Rika Deluna - Last Filed: 10/06/16 23:54> <Femi Bower - Last Filed: 10/14/16 03:19> - Vital Signs Last Vital Signs Temp Pulse Resp BP Pulse Ox 98.3 F 98 H 20 115/75 100 10/09/16 10:00 10/09/16 10:00 10/09/16 10:00 10/09/16 10:00 10/09/16 09:00 - Physical Exam Comments: 10/06/16 23:47 CONSTITUTIONAL: Awake alert. Mild to moderate distress HEAD: Normocephalic; atraumatic EYES: PERRL; EOM intact. No scleral icterus. ENMT: External appears normal; normal oropharynx NECK: Supple; non-tender; no cervical lymphadenopathy CARD: Normal S1, S2; no murmurs, rubs, or gallops RESP: Normal chest excursion with respiration; breath sounds clear and equal bilaterally; no wheezes, rhonchi, or rales ABD: Soft, non-distended; non-tender; no palpable organomegaly, no palpable hernias EXT: Normal ROM in all four extremities; non-tender to palpation; distal pulses intact SKIN: Warm, dry, no rash NEURO: No focal neurological deficiencies. (Rika Deluna) Heart Score/ECG Review #1 General ECG Interpretation: Normal Rate <Rika Deluna - Last Filed: 10/06/16 23:54> <Femi Bower - Last Filed: 10/14/16 03:19> #1 10/06/16 23:55 vent rate 85 bpm NJ interval 156ms QRS duration 84ms Qt/QTc 390/464ms P-R-T 53 33 45 (Rika Deluna) ED Treatment Course - LABORATORY CBC & Chemistry Diagram: 10/06/16 23:00 10/06/16 23:00 <Rika Deluna - Last Filed: 10/06/16 23:54> - LABORATORY CBC & Chemistry Diagram: 10/08/16 08:30 10/08/16 08:30 <Femi Bower - Last Filed: 10/14/16 03:19> - ADDITIONAL ORDERS Additional order review: 10/06/16 23:00 RBC 4.01 MCV 88.6 MCHC 33.3 RDW 15.1 MPV 7.9 Neutrophils % 73.5 Lymphocytes % 15.0 D Monocytes % 10.8 H D Eosinophils % 0.1 Basophils % 0.6 - RADIOLOGY Radiology Studies Ordered: Category Date Time Status CHEST X-RAY PORTABLE* [RAD] Stat Radiology 10/06/16 23:13 Completed - Medications Given in the ED: ED Medications Discontinued Medications Generic Name Dose Route Start Last Admin Trade Name Freq PRN Reason Stop Dose Admin Acetaminophen 325 mg 10/07/16 06:51 10/08/16 06:24 Tylenol - PO 325 mg Q6H PRN Administration PAIN Acetaminophen/Codeine Phosphate 1 tab 10/07/16 02:22 10/07/16 02:36 Tylenol # 3 - PO 10/07/16 02:23 1 tab ONCE ONE Administration Al Hydroxide/Mg Hydroxide 30 ml 10/07/16 09:00 10/07/16 16:21 Mylanta Suspension - PO 30 ml Q8H NAKIA Administration Al Hydroxide/Mg Hydroxide 30 ml 10/07/16 22:00 10/09/16 14:32 Mylanta Oral Suspension - PO Not Given TID NAKIA Aspirin 81 mg 10/07/16 10:00 10/09/16 10:36 Ecotrin - PO 81 mg DAILY NAKIA Administration Atorvastatin Calcium 80 mg 10/07/16 22:00 10/08/16 22:24 Lipitor - PO 80 mg HS NAKIA Administration Clonazepam 1 mg 10/08/16 06:51 10/09/16 14:00 Klonopin - PO 1 mg Q8H PRN Administration Diphenhydramine HCl 25 mg 10/06/16 22:47 10/06/16 22:50 Benadryl Injection - IVPB 10/06/16 22:48 25 mg ONCE ONE Administration Pantoprazole Sodium 40 mg/ 100 mls @ 200 mls/hr 10/07/16 10:00 10/07/16 22:35 Sodium Chloride IVPB 200 mls/hr BID NAKIA Administration Dextrose/Sodium Chloride 1,000 mls @ 80 mls/hr 10/07/16 13:28 10/07/16 14:37 D5-Ns - IV 10/08/16 01:57 80 mls/hr ASDIR ONE Administration Insulin Aspart 1 vial 10/07/16 07:00 10/09/16 12:00 Novolog Vial Sliding Scale - SQ 2 units ACHS NAKIA Administration Protocol Labetalol HCl 20 mg 10/06/16 22:48 10/06/16 23:00 Normodyne Injection - IVPUSH 10/06/16 22:49 20 mg ONCE ONE Administration Labetalol HCl 40 mg 10/06/16 23:42 10/06/16 23:45 Normodyne Injection - IVPUSH 10/06/16 23:43 40 mg ONCE ONE Administration Labetalol HCl 80 mg 10/07/16 00:41 10/07/16 00:54 Normodyne Injection - IVPUSH 10/07/16 00:42 80 mg ONCE ONE Administration Labetalol HCl 200 mg 10/07/16 01:54 10/07/16 01:56 Normodyne - PO 10/07/16 01:55 200 mg ONCE ONE Administration Labetalol HCl 200 mg 10/07/16 10:00 10/09/16 10:36 Normodyne - PO 200 mg BID NAKIA Administration Metoclopramide HCl 10 mg 10/06/16 22:47 10/06/16 22:50 Reglan Injection - IVPUSH 10/06/16 22:48 10 mg ONCE ONE Administration Nitroglycerin 1 inch 10/06/16 22:48 10/06/16 22:50 Nitro-Bid 2% Paste - TD 10/06/16 22:49 1 inch ONCE ONE Administration Ondansetron HCl 8 mg 10/06/16 22:47 10/06/16 22:50 Zofran Injection IVPB 10/06/16 22:48 8 mg ONCE ONE Administration Ondansetron HCl 4 mg 10/07/16 02:42 10/07/16 02:53 Zofran Injection IVPUSH 10/07/16 02:43 4 mg ONCE ONE Administration Ondansetron HCl 4 mg 10/07/16 13:27 10/08/16 04:23 Zofran Injection IVPB 4 mg Q6H PRN Administration NAUSEA Oxycodone HCl 5 mg 10/07/16 06:51 10/08/16 06:23 Roxicodone - PO 5 mg Q6H PRN Administration PAIN Pantoprazole Sodium 40 mg 10/07/16 22:30 10/08/16 17:05 Protonix 40mg Ivpb (Pre-Docked) IVPB Not Given BID NAKIA Pantoprazole Sodium 40 mg 10/08/16 12:15 10/09/16 10:36 Protonix - PO 40 mg DAILY NAKIA Administration Sitagliptin Phosphate 25 mg 10/07/16 07:00 10/09/16 06:32 Januvia - PO 25 mg DAILY@0700 NAKIA Administration Ticagrelor 90 mg 10/07/16 10:00 10/09/16 10:36 Brilinta - PO 90 mg BID NAKIA Administration Medical Decision Making <Rika Deluna - Last Filed: 10/06/16 23:54> <Femi Bower - Last Filed: 10/14/16 03:19> - Medical Decision Making Patient is a 36-year-old female with history of diabetes, diabetic gastroparesis , CAD, CK D, hypertension presents with atraumatic recurrent chest discomfort, nonradiating, with abdominal discomfort with associated numerous episodes of nonbloody nonbilious vomiting consistent with previous episodes of diabetic gastroparesis. Patient been seen and evaluated in this ER 3 times during the past 48 hours for similar symptoms. On initial evaluation, patient was noted to be hypertensive and tachycardic, actively vomiting. EKG reveals no evidence of acute ischemia. Chest x-ray reveals no evidence of widened mediastinum. I suspect hypertensive emergency. Patient's receiving labetalol IV as well as transdermal nitroglycerin. Patient has also received numerous doses of Zofran, as well as 10 mg of Reglan and Benadryl. CBC reveals mild leukocytosis. Awaiting CMP and cardiac profile. Patient will require admission for treatment of hypertensive urgency and recurrent diabetic gastroparesis. Will endorse to Dr. victor final disposition. (Femi Bower) *DC/Admit/Observation/Transfer <Rika Deluna - Last Filed: 10/06/16 23:54> <Femi Bower - Last Filed: 10/14/16 03:19> Diagnosis at time of Disposition: Gastroparesis, Chest pain - Discharge Dispostion Disposition: HOME Condition at time of disposition: Improved - Prescriptions - Referrals - Attestations Scribe Attestion: 10/06/16 23:47 Documentation prepared by MICH Arevalo, acting as medical education manager for Femi Bower MD. (Rika Deluna)
[2016-10-06 23:51] LABS: BASOPHIL 0.6 % (0-2.0); EOSINOPHIL 0.1 % (0-4.5); MCH 29.5 pg (25.7-33.7); MCHC 33.3 g/dl (32.0-36.0); MEAN CELL VOLUME 88.6 fl (80-96); MEAN PLT VOLUME 7.9 fl (7.5-11.1); NEUTROPHILS 73.5 % (42.8-82.8); PLATELET COUNT 312 K/MM3 (134-434); RDW 15.1 % (11.6-15.6); WHITE BLOOD COUNT 11.1 K/mm3 (4.0-10.0)
[2016-10-07] MEDS ORDERED: LABETALOL HCL 5 MG/1 ML (100MG/20 ML VIAL) IVPUSH ONE (00:41)
[2016-10-07 00:43] LABS: INR 1.14 (0.82-1.09); PROTHROMBIN TIME (PATIENT) 12.6 SEC (9.98-11.88)
[2016-10-07] MEDS ORDERED: LABETALOL HCL 5 MG/1 ML (200MG/40ML VIAL) IVPB ONE (00:55)
[2016-10-07] MEDS ORDERED: LABETALOL HCL 200 MG TABLET (FP) PO ONE (01:54)
[2016-10-07] MEDS ORDERED: LABETALOL HCL 100 MG TABLET (FP) ONE ×2 (01:55→11:01)
[2016-10-07] MEDS ORDERED: ACETAMINOPHEN WITH CODEINE 300MG/30MG TABLET PO ONE (02:22)
[2016-10-07] MEDS ORDERED: ACETAMINOPHEN WITH CODEINE 300MG/30MG TABLET ONE (02:39)
[2016-10-07] MEDS ORDERED: ONDANSETRON 4 MG/2 ML VIAL ONE ×3 (02:41→13:54)
[2016-10-07] MEDS ORDERED: ONDANSETRON 4 MG/2 ML VIAL IVPUSH ONE (02:42)
[2016-10-07 03:27] LABS: CREATININE 1.1 mg/dL (0.55-1.02)
[2016-10-07 03:29] LABS: TROPONIN I 0.03 ng/ml (0.00-0.05)
--- NOTE | 2016-10-07 03:46 | PDOC ---
*Physical Exam - Vital Signs Last Vital Signs Temp Pulse Resp BP Pulse Ox 98.2 F 103 H 20 203/100 98 10/06/16 21:34 10/06/16 21:34 10/06/16 21:34 10/06/16 21:34 10/06/16 21:34 ED Treatment Course - LABORATORY CBC & Chemistry Diagram: 10/06/16 23:00 10/07/16 02:30 - ADDITIONAL ORDERS Additional order review: Laboratory Results 10/07/16 10/07/16 10/06/16 02:30 02:30 23:00 INR Sodium 132 L Cancelled Potassium 4.0 Cancelled Chloride 98 Cancelled Carbon Dioxide 23 Cancelled Anion Gap 11 Cancelled BUN 13 D Cancelled Creatinine 1.1 H Cancelled Creat Clearance w eGFR Cancelled Random Glucose 279 H Cancelled Calcium 9.0 Cancelled Magnesium Cancelled Total Bilirubin Cancelled AST Cancelled ALT Cancelled Alkaline Phosphatase Cancelled Creatine Kinase 591 H Cancelled Troponin I 0.03 Cancelled Total Protein Cancelled Albumin Cancelled 10/06/16 23:00 INR 1.14 Sodium Potassium Chloride Carbon Dioxide Anion Gap BUN Creatinine Creat Clearance w eGFR Random Glucose Calcium Magnesium Total Bilirubin AST ALT Alkaline Phosphatase Creatine Kinase Troponin I Total Protein Albumin 10/06/16 23:00 RBC 4.01 MCV 88.6 MCHC 33.3 RDW 15.1 MPV 7.9 Neutrophils % 73.5 Lymphocytes % 15.0 D Monocytes % 10.8 H D Eosinophils % 0.1 Basophils % 0.6 - Medications Given in the ED: ED Medications Discontinued Medications Generic Name Dose Route Start Last Admin Trade Name Freq PRN Reason Stop Dose Admin Acetaminophen/Codeine Phosphate 1 tab 10/07/16 02:22 10/07/16 02:36 Tylenol # 3 - PO 10/07/16 02:23 1 tab ONCE ONE Administration Diphenhydramine HCl 25 mg 10/06/16 22:47 10/06/16 22:50 Benadryl Injection - IVPB 10/06/16 22:48 25 mg ONCE ONE Administration Labetalol HCl 20 mg 10/06/16 22:48 10/06/16 23:00 Normodyne Injection - IVPUSH 10/06/16 22:49 20 mg ONCE ONE Administration Labetalol HCl 40 mg 10/06/16 23:42 10/06/16 23:45 Normodyne Injection - IVPUSH 10/06/16 23:43 40 mg ONCE ONE Administration Labetalol HCl 80 mg 10/07/16 00:41 10/07/16 00:54 Normodyne Injection - IVPUSH 10/07/16 00:42 80 mg ONCE ONE Administration Labetalol HCl 200 mg 10/07/16 01:54 10/07/16 01:56 Normodyne - PO 10/07/16 01:55 200 mg ONCE ONE Administration Metoclopramide HCl 10 mg 10/06/16 22:47 10/06/16 22:50 Reglan Injection - IVPUSH 10/06/16 22:48 10 mg ONCE ONE Administration Nitroglycerin 1 inch 10/06/16 22:48 10/06/16 22:50 Nitro-Bid 2% Paste - TD 10/06/16 22:49 1 inch ONCE ONE Administration Ondansetron HCl 8 mg 10/06/16 22:47 10/06/16 22:50 Zofran Injection IVPB 10/06/16 22:48 8 mg ONCE ONE Administration Ondansetron HCl 4 mg 10/07/16 02:42 10/07/16 02:53 Zofran Injection IVPUSH 10/07/16 02:43 4 mg ONCE ONE Administration *DC/Admit/Observation/Transfer Diagnosis at time of Disposition: Gastroparesis, Chest pain - Discharge Dispostion Condition at time of disposition: Stable Admit: Yes - Referrals Referrals: Tiago Jaeger MD [Primary Care Provider] - - Patient Instructions - Post Discharge Activity
[2016-10-07] MEDS ORDERED: ACETAMINOPHEN 325 MG TABLET (FP) PO PRN (06:13)
[2016-10-07] MEDS ORDERED: OXYCODONE/APAP 5/325MG COMBO TABLET PO SCH (06:15)
[2016-10-07] MEDS: INSULIN SLIDING SCALE (NOVOLOG) 1 VIAL SQ SCH ×4 (07:51→22:39)
[2016-10-07] MEDS ORDERED: sitaGLIPtin PHOSPHATE 50 MG TABLET ONE (07:52)
[2016-10-07] MEDS: sitaGLIPtin PHOSPHATE 25 MG TABLET (FP) PO SCH (07:57)
[2016-10-07] MEDS ORDERED: PANTOPRAZOLE SODIUM 40 MG VIAL ONE (08:53)
[2016-10-07] MEDS ORDERED: MAG HYDROX/AL HYDROX/SIMETH 30 ML UNIT-DOSE CUP ONE (08:53)
[2016-10-07] MEDS: PANTOPRAZOLE SODIUM 40 MG in SODIUM CHLORIDE 100 ML IVPB SCH ×2 (08:59→22:35)
[2016-10-07] MEDS: MAG HYDROX/AL HYDROX/SIMETH 355 ML ORAL.SUSP PO SCH ×2 (08:59→16:21)
--- NOTE | 2016-10-07 09:11 | CON.CARD ---
Consult Consult Specialty:: Cardiology Referred by:: ER Reason for Consultation:: Chest pain - History of Present Illness Chief Complaint: nausea, vomiting, chest pain History of Present Illness: 36 year old woman with a history of HTN, HLD, DMI II, CAD prior CT's, prior LAD stent 2013, last PCI was POBA LAD 2014, adm 06/2016 with nstemi cardiac cath done showed no sig progression of disease those no PCI performed, CKD, Chronic diastolic CHF, marijuana abuse with cyclical vomiting syndrome and multiple admission for this presents with persistent nausea and vomiting with associated chest pain. She was seen and examined this am in nad. states she is feeling better currently. states that her chest pain is similar to her prior nausea and vomiting episodes, not the same as prior CT. denies any sob, palpitations, lightheadedness, dizzines, syncope, near syncope, pnd, orthopnea, or LE edema. - History Source History Provided By: Patient, Medical Record Limitations to Obtaining History: No Limitations - Past Medical History Cardio/Vascular: Yes: CAD, CHF, HTN, Hyperlipdemia, CT Pulmonary: Yes: Bronchitis Gastrointestinal: Yes: Other (diabetic gastroparesis) Renal/: Yes: Renal Inusuff ...LMP: 08/21/16 Psych: Yes: Anxiety, Panic Musculoskeletal: Yes: Other (rt shoulder pain) Endocrine: Yes: Diabetes Mellitus - Past Surgical History Past Surgical History: Yes: - Alcohol/Substance Use Hx Alcohol Use: No History of Substance Use: reports: Marijuana - Smoking History Smoking history: Never smoked Have you smoked in the past 12 months: Yes Aproximately how many cigarettes per day: 1 If you are a former smoker, when did you quit?: t-19 - Social History Usual Living Arrangement: With Parent ADL: Independent History of Recent Travel: No Home Medications - Allergies Allergies/Adverse Reactions: Allergies Allergy/AdvReac Type Severity Reaction Status Date / Time cephalexin monohydrate Allergy Severe Hives Verified 10/06/16 21:34 [From Keflex] - Home Medications Home Medications: Ambulatory Orders Aspirin [Aspirin EC] 81 mg PO DAILY 11/13/15 Acetaminophen [Tylenol .Regular Strength -] 650 mg PO Q6H PRN #0 tablet Atorvastatin Ca [Lipitor] 80 mg PO HS tablet 06/27/16 Labetalol HCl [Normodyne -] 200 mg PO BID tablet 06/27/16 Sitagliptin Phosphate [Januvia -] 25 mg PO DAILY@0700 tab 06/27/16 Metformin HCl 500 mg PO BID 08/25/16 Ticagrelor [Brilinta -] 90 mg PO BID 08/25/16 Oxycodone HCl/Acetaminophen [Percocet 5-325 mg Tablet] 1 - 2 tab PO Q6H #50 tab MDD 8 09/02/16 Ondansetron [Zofran *Odt*] 8 mg SL TID PRN #30 od.tablet 10/05/16 Family Disease History - Family Disease History Family Disease History: Diabetes: Mother (htn) Review of Systems - Review of Systems Constitutional: reports: Loss of Appetite. denies: No Symptoms, Chills, Diaphoresis, Fever, Lethargy, Malaise, Night Sweats, Unintentional Wgt. Loss, Weakness, Other Eyes: denies: No Symptoms, Blind Spots, Blurred Vision, Double Vision, Eye Pain , Floaters, Photophobia, Recent Change in Vision, Other HENT: denies: No Symptoms, Difficult Swallowing, Ear Discharge, Ear Pain, Epistaxis, Gingival Bleeding, Hearing Loss, Mouth Swelling, Nasal Congestion, Ocular Prosthesis, Throat Pain, Toothache, Ringing in Ears, Other Neck: denies: No Symptoms, Decreased ROM, Lumps, Pain on Movement, Stiffness, Swollen Glands, Tenderness, Other Cardiovascular: reports: Chest Pain. denies: No Symptoms, Edema, Palpitations, Shortness of Breath, Other Respiratory: denies: No Symptoms, Cough, Exercise Intolerance, Hemoptysis, Orthopnea, PND, Snoring, SOB, SOB on Exertion, Wheezing, Other Gastrointestinal: reports: Abdominal Pain, Indigestion, Nausea, Vomiting. denies: No Symptoms, Bloating, Constipation, Diarrhea, Dysphagia, Melena, Rectal Bleeding, Vomiting Blood, Other Genitourinary: denies: No Symptoms, Burning, Discharge, Dysuria, Flank Pain, Frequency, Hematuria, Incontinence, Lesions, Menses, Pain, Testicular Mass, Testicular Pain, Testicular Swelling, Urgency, Vaginal Bleeding, Other Breasts: denies: No Symptoms Reported, See HPI, Breast Implants, Discharge from Nipple, Lumps, Pain, Skin Changes, Other Musculoskeletal: denies: No Symptoms, Back Pain, Crepitus, Decreased ROM, Extremity Pain, Joint Pain, Joint Swelling, Muscle Pain, Muscle Cramps, Muscle Weakness, Other Integumentary: denies: No Symptoms, Blister, Bruising, Change in Color, Eczema, Erythema, Incision, Lesions, Lump, Pallor, Pruritis, Rash, Wound, Other Neurological: denies: No Symptoms, Change in LOC, Change in Speech, Confusion, Dizziness, Headache, Incoordination, Numbness, Parasthesia, Pre-Existing Deficit , Seizure, Syncope, Tremors, Unsteady Gait, Weakness, Other Endocrine: denies: No Symptoms, Excessive Sweating, Flushing, Increased Hunger, Increased Thirst, Intolerance to Cold, Intolerance to Heat, Unexplained Weight Gain, Unexplained Weight Loss, Other Hematology/Lymphatic: denies: No Symptoms, Easily Bruised, Excessive Bleeding, Swollen Glands, Other Psychiatric: denies: No Symptoms, Altered Sleep Pattern, Anxiety, Depression, Hallucinations, Panic, Paranoia, Suicidal, Other - Risk Factors Known Risk Factors: Yes: Diabetes Mellitus, Hypercholesterolemia, Hypertension, Prior CT /Emb Stroke, Smoking Vital Signs: Vital Signs Temperature 98.9 F 10/07/16 05:42 Pulse Rate 95 H 10/07/16 07:57 Respiratory Rate 18 10/07/16 07:57 Blood Pressure 151/96 10/07/16 07:57 O2 Sat by Pulse Oximetry (%) 99 10/07/16 07:57 Constitutional: Yes: Well Nourished, No Distress, Calm Eyes: Yes: WNL, Conjunctiva Clear, EOM Intact, PERRL HENT: Yes: WNL, Atraumatic, Normocephalic Neck: Yes: WNL, Supple, Trachea Midline Respiratory: Yes: WNL, Regular, CTA Bilaterally. No: Rales, Rhonchi, Wheezes Gastrointestinal: Yes: WNL, Normal Bowel Sounds, Soft. No: Distention, Tenderness Renal/: Yes: WNL Cardiovascular: Yes: WNL, Regular Rate and Rhythm. No: Bradycardia, Tachycardia , Pulse Irregular, Gallop, Rub, Varicosities JVD: No Carotid Bruit: No PMI: Non-Displaced Heart Sounds: Yes: S1, S2. No: Split S2, S3, S4, Clicks, Gallop, Rub, Bruit Murmur: No: Systolic Murmur, Diastolic Murmur Musculoskeletal: Yes: WNL Extremities: Yes: WNL Edema: No Peripheral Pulses WNL: Yes Peripheral Pulses: 2+ Left Doralis Pedis, 2+ Right Dorsalis Pedis Integumentary: Yes: WNL Neurological: Yes: WNL, Alert, Oriented, Cran Nerves II-XII Intact ...Motor Strength: WNL Psychiatric: Yes: WNL, Alert, Oriented - Other Data Labs, Other Data: INR, PTT INR 1.14 (0.82-1.09) 10/06/16 23:00 ekg-NSR 85bpm, LAE, no sig ST abnl, poor R progression Echo: Report Reviewed Prior Cardiac Procedures: Cardiac Catheterization, PTCA with Stent Ejection Fraction %: LVEF > or = 40 % Imaging - Results Chest X-ray: Report Reviewed, Image Reviewed EKG: Report Reviewed, Image Reviewed Other: Report Reviewed, Image Reviewed (tele-nsr, no events recorded) Problem List - Problems (1) Chest pain Code(s): R07.9 - CHEST PAIN, UNSPECIFIED (2) Cyclic vomiting syndrome Code(s): G43.A0 - CYCLICAL VOMITING, NOT INTRACTABLE (3) Gastroparesis Code(s): K31.84 - GASTROPARESIS (4) Chronic diastolic (congestive) heart failure Code(s): I50.32 - CHRONIC DIASTOLIC (CONGESTIVE) HEART FAILURE (5) Cannabis abuse Code(s): F12.10 - CANNABIS ABUSE, UNCOMPLICATED (6) Coronary artery disease Code(s): I25.10 - ATHSCL HEART DISEASE OF [place] CORONARY ARTERY W/O ANG PCTRS Qualifiers: Coronary Disease-Associated Artery/Lesion type: [place] artery [place] vs. transplanted heart: [place] heart Associated angina: with unspecified angina Qualified Code(s): I25.119 - Atherosclerotic heart disease of [place] coronary artery with unspecified angina pectoris (7) Diabetes mellitus Code(s): E11.9 - TYPE 2 DIABETES MELLITUS WITHOUT COMPLICATIONS Qualifiers: Diabetes mellitus type: type 2 Diabetes mellitus complication status: with kidney complications Diabetes mellitus complication detail: with chronic kidney disease Chronic kidney disease stage: stage 3 (moderate) Qualified Code(s): E11.22 - Type 2 diabetes mellitus with diabetic chronic kidney disease; N18.1 - Chronic kidney disease, stage 1; Z79.4 - technician terminal and repeater ( current) use of insulin (8) Hyperlipidemia Code(s): E78.5 - HYPERLIPIDEMIA, UNSPECIFIED Qualifiers: Hyperlipidemia type: unspecified Qualified Code(s): E78.5 - Hyperlipidemia, unspecified (9) Hypertension Code(s): I10 - ESSENTIAL (PRIMARY) HYPERTENSION Qualifiers: Hypertension type: essential hypertension Qualified Code(s): I10 - Essential (primary) hypertension Assessment/Plan 36 year old woman with a history of HTN, HLD, DMI II, CAD prior CT's, prior LAD stent 2013, last PCI was POBA LAD 2014, adm 06/2016 with nstemi cardiac cath done showed no sig progression of disease those no PCI performed, CKD, Chronic diastolic CHF, marijuana abuse with cyclical vomiting syndrome and multiple admission for this presents with persistent nausea and vomiting with associated chest pain. She was seen and examined this am in nad. states she is feeling better currently. states that her chest pain is similar to her prior nausea and vomiting episodes, not the same as prior CT. Chest pain-atypical, this episode unlikely cardiac, likely related to GI issues , nausea, vomiting, known CAD, prior CT's, prior stents -cardiac enzymes wnl x 3 -ok to dc tele -cont home cardiac meds -GI work up -no additional inpatient ischemic work up needed at this point DM: -as per PMD HTN:above goal -resume home meds and re-evaluate History of Ольга-oral edema: -intermittent w/ marked swelling of face and lips, unlcear etiology -possibly related to unknown allergen -was Not on JASMYNE or ARB at that time -outpatient follow up
[2016-10-07 10:17] LABS: TROPONIN I 0.02 ng/ml (0.00-0.05)
--- NOTE | 2016-10-07 10:55 | HP ---
Admitting History and Physical - Primary Care Physician PCP: Tiago Jaeger - Admission Chief Complaint: hypertensive urgency and recurrent diabetic gastroparesis History Source: Medical Record - Past Medical History Cardiovascular: Yes: CAD, CHF, HTN, Hyperlipdemia, [place] Pulmonary: Yes: Bronchitis Gastrointestinal: Yes: Other (diabetic gastroparesis) Renal/: Yes: Renal Inusuff ...LMP: 08/21/16 Psych: Yes: Anxiety, Panic Musculoskeletal: Yes: Other (rt shoulder pain) Endocrine: Yes: Diabetes Mellitus - Past Surgical History Past Surgical History: Yes: - Smoking History Smoking history: Never smoked Have you smoked in the past 12 months: Yes Aproximately how many cigarettes per day: 1 If you are a former smoker, when did you quit?: t-19 - Alcohol/Substance Use Hx Alcohol Use: No History of Substance Use: reports: Marijuana - Social History ADL: Independent History of Recent Travel: No Home Medications - Allergies Allergies/Adverse Reactions: Allergies Allergy/AdvReac Type Severity Reaction Status Date / Time cephalexin monohydrate Allergy Severe Hives Verified 10/06/16 21:34 [From [employer]] - Home Medications Home Medications: Ambulatory Orders Aspirin [Aspirin EC] 81 mg PO DAILY 11/13/15 Acetaminophen [Tylenol .Regular Strength -] 650 mg PO Q6H PRN #0 tablet Metformin HCl 500 mg PO BID 08/25/16 Ticagrelor [Brilinta -] 90 mg PO BID 08/25/16 Oxycodone HCl/Acetaminophen [Percocet 5-325 mg Tablet] 1 - 2 tab PO Q6H #50 tab MDD 8 09/02/16 Ondansetron [Zofran *Odt*] 8 mg SL TID PRN #30 od.tablet 10/05/16 Atorvastatin Ca [Lipitor] 80 mg PO HS #30 tablet 10/09/16 Labetalol HCl [Normodyne -] 200 mg PO BID #60 tablet 10/09/16 Sitagliptin Phosphate [Januvia -] 25 mg PO DAILY@0700 #30 tab 10/09/16 Ticagrelor [Brilinta -] 90 mg PO BID tablet 10/09/16 Family Disease History - Family Disease History Family Disease History: Diabetes: Mother (htn) Review of Systems - Review of Systems Cardiovascular: reports: Chest Pain Respiratory: denies: SOB Gastrointestinal: reports: Abdominal Pain, Nausea, Vomiting Physical Examination Vital Signs: Vital Signs Temperature 98.9 F 10/07/16 05:42 Pulse Rate 95 H 10/07/16 07:57 Respiratory Rate 18 10/07/16 07:57 Blood Pressure 151/96 10/07/16 07:57 O2 Sat by Pulse Oximetry (%) 99 10/07/16 07:57 Cardiovascular: Yes: Regular Rate and Rhythm, S1, S2 Respiratory: Yes: CTA Bilaterally Gastrointestinal: Yes: Soft, Tenderness Edema: No Imaging - Results Chest X-ray: Report Reviewed Problem List - Problems (1) Anxiety Code(s): F41.9 - ANXIETY DISORDER, UNSPECIFIED (2) Chest pain Code(s): R07.9 - CHEST PAIN, UNSPECIFIED (3) CHF (congestive heart failure) Code(s): I50.9 - HEART FAILURE, UNSPECIFIED (4) Coronary artery disease Code(s): I25.10 - ATHSCL HEART DISEASE OF [place] CORONARY ARTERY W/O ANG PCTRS Qualifiers: Coronary Disease-Associated Artery/Lesion type: [place] artery [place] vs. transplanted heart: [place] heart Associated angina: with unspecified angina Qualified Code(s): I25.119 - Atherosclerotic heart disease of [place] coronary artery with unspecified angina pectoris (5) Gastroparesis Code(s): K31.84 - GASTROPARESIS (6) Hypertension Code(s): I10 - ESSENTIAL (PRIMARY) HYPERTENSION Qualifiers: Hypertension type: essential hypertension Qualified Code(s): I10 - Essential (primary) hypertension (7) NSTEMI (non-ST elevated myocardial infarction) Code(s): I21.4 - NON-ST ELEVATION (NSTEMI) MYOCARDIAL INFARCTION Assessment/Plan The patient is a 36 year old female, with significant past medical history of severe gastroparesis, HTN, HLD, CAD, MS, CHF, NIDDM, chronic kidney disease, and cervical cancer. This is the patient's 4th visit to the ER within the past 2 days for persistent nausea and vomiting. The patient has returned to the ER with chest pain as well as continued nausea and vomiting. She states that the chest pain started yesterday, is localized to the middle of the chest, and is 13 /10 in severity. She states that these symptoms are similar to those she experienced in the past with gastroparesis. Allergies: Cephalexin Monohydrate. Past Surgical History: Caesarian Section. Stent placements x3. Rotator cuff repair. Social History: Former tobacco use. History of drug abuse. Current Marijuana use. No ETOH use. Primary Care Physician: Dr. Tiago Jaeger [phone] Aerial Photographer: Dr. Juan Manuel Ng [phone] Box Coverer Hand: Dr. Wan Sifuentes [phone] (1) Anxiety Code(s): F41.9 - ANXIETY DISORDER, UNSPECIFIED PSYCH (2) Chest pain Code(s): R07.9 - CHEST PAIN, UNSPECIFIED CARDIO (3) CHF (congestive heart failure) Code(s): I50.9 - HEART FAILURE, UNSPECIFIED (4) Coronary artery disease Code(s): I25.10 - ATHSCL HEART DISEASE OF [place] CORONARY ARTERY W/O ANG PCTRS Qualifiers: Coronary Disease-Associated Artery/Lesion type: [place] artery [place] vs. transplanted heart: [place] heart Associated angina: with unspecified angina Qualified Code(s): I25.119 - Atherosclerotic heart disease of [place] coronary artery with unspecified angina pectoris (5) Gastroparesis Code(s): K31.84 - GASTROPARESIS GI (6) Hypertension Code(s): I10 - ESSENTIAL (PRIMARY) HYPERTENSION Qualifiers: Hypertension type: essential hypertension Qualified Code(s): I10 - Essential (primary) hypertension (7) H/O NSTEMI (non-ST elevated myocardial infarction) WINDOWS DESKTOP SUPPORT FM
[2016-10-07] MEDS: TICAGRELOR 90 MG TABLET PO SCH ×2 (11:00→22:21)
[2016-10-07] MEDS ORDERED: ASPIRIN 81 MG CHEWABLE TABLETS ONE (11:00)
[2016-10-07] MEDS ORDERED: oxyCODONE HCL 5 MG TABLET ONE (11:01)
[2016-10-07] MEDS: oxyCODONE HCL 5 MG TABLET PO PRN ×2 (11:04→17:11)
[2016-10-07] MEDS: LABETALOL HCL 200 MG TABLET (FP) PO SCH ×2 (11:05→22:30)
[2016-10-07] MEDS: ASPIRIN COATED 81 MG TABLET.EC PO SCH (11:05)
[2016-10-07 11:34] LABS: CALCIUM 8.8 mg/dL (8.5-10.1)
[2016-10-07] MEDS ORDERED: INSULIN REGULAR HUMAN 100 UNITS/ML *VIAL ONE (12:02)
--- NOTE | 2016-10-07 12:43 | PN ---
Progress Note (short form) - Note Progress Note: GASTROENTEROLOGY CALLED TO SEE THIS PATIENT WITH CHRONIC GASTROPARESIS. IT IS DOCUMENTED THAT DR MUÑOZ IS HER EVENT PLANNING MANAGER. NURSING STAFF STATES SHE WISHES TO CONTINUE WITH HIM. I HAVE ASKED THE STAFF TO CONSULT DR MUÑOZ TODAY. SELMA BRENNAN MD
[2016-10-07] MEDS ORDERED: DEXTROSE 5%-NORMAL SALINE 1,000 ML IV ONE (13:28)
[2016-10-07] MEDS: ONDANSETRON 4 MG/2 ML VIAL IVPB PRN (14:38)
--- NOTE | 2016-10-07 15:24 | EKG ---
Test Reason : Blood Pressure : / mmHG Vent. Rate : 085 BPM Atrial Rate : 085 BPM P-R Int : 156 ms QRS Dur : 084 ms QT Int : 390 ms P-R-T Axes : 053 033 045 degrees QTc Int : 464 ms NORMAL SINUS RHYTHM POSSIBLE LEFT ATRIAL ENLARGEMENT WHEN COMPARED WITH ECG OF 06-OCT-2016 21:41, NO SIGNIFICANT CHANGE WAS FOUND Confirmed by DANNIELLE MARSH MD ([id number]) on 10/07/2016 3:24:36 PM Referred By: Confirmed By:DANNIELLE MARSH MD
--- NOTE | 2016-10-07 15:25 | EKG ---
Test Reason : Blood Pressure : / mmHG Vent. Rate : 100 BPM Atrial Rate : 100 BPM P-R Int : 152 ms QRS Dur : 078 ms QT Int : 356 ms P-R-T Axes : 052 019 048 degrees QTc Int : 459 ms NORMAL SINUS RHYTHM RSR' OR QR PATTERN IN V1 SUGGESTS RIGHT VENTRICULAR CONDUCTION DELAY NONSPECIFIC ST ABNORMALITY Confirmed by DANNIELLE MARSH MD ([id number]) on 10/07/2016 3:25:47 PM Referred By: Confirmed By:DANNIELLE MARSH MD
[2016-10-07 15:52] LABS: TROPONIN I < 0.02 ng/ml (0.00-0.05)
[2016-10-07 16:12] VITALS: BMI 26.9
[2016-10-07] MEDS: ACETAMINOPHEN 325 MG TABLET (FP) PO PRN (17:12)
[2016-10-07] MEDS: ATORVASTATIN CA 80 MG TABLET (FP) PO SCH (22:29)
[2016-10-07] MEDS: MAG HYDROX/AL HYDROX/SIMETH 30 ML UNIT-DOSE CUP PO SCH (22:30)
[2016-10-07] MEDS: PANTOPRAZOLE SODIUM 40 MG/100 ML PRE-DOCKED IVPB SCH (22:41)
[2016-10-08] MEDS: oxyCODONE HCL 5 MG TABLET PO PRN ×2 (00:33→06:23)
[2016-10-08] MEDS: ACETAMINOPHEN 325 MG TABLET (FP) PO PRN ×2 (00:37→06:24)
[2016-10-08] MEDS: ONDANSETRON 4 MG/2 ML VIAL IVPB PRN (04:23)
[2016-10-08] MEDS: INSULIN SLIDING SCALE (NOVOLOG) 1 VIAL SQ SCH ×4 (06:22→22:29)
[2016-10-08] MEDS: sitaGLIPtin PHOSPHATE 25 MG TABLET (FP) PO SCH (06:22)
[2016-10-08] MEDS: MAG HYDROX/AL HYDROX/SIMETH 30 ML UNIT-DOSE CUP PO SCH ×3 (06:22→22:24)
[2016-10-08] MEDS: clonazePAM 0.5 MG TABLET PO PRN ×2 (07:44→16:00)
[2016-10-08 08:52] LABS: BASOPHIL 0.7 % (0-2.0); EOSINOPHIL 0.3 % (0-4.5); MEAN CELL VOLUME 88.3 fl (80-96); MEAN PLT VOLUME 7.1 fl (7.5-11.1); NEUTROPHILS 66.8 % (42.8-82.8); PLATELET COUNT 270 K/MM3 (134-434); RDW 14.4 % (11.6-15.6); WHITE BLOOD COUNT 6.5 K/mm3 (4.0-10.0)
[2016-10-08 10:00] LABS: ALBUMIN 3.9 g/dl (3.4-5.0); ALK PHOS 49 U/L (45-117); ANION GAP 10 (8-16); BILIRUBIN,TOTAL 0.4 mg/dL (0.2-1.0); CALCIUM 8.1 mg/dL (8.5-10.1); CO2 23 mmol/L (21-32); GLUCOSE,RANDOM 189 mg/dL (74-106); SGOT/AST 14 U/L (15-37); SGPT/ALT 26 U/L (12-78); TOT PROT 7.4 g/dl (6.4-8.2)
--- NOTE | 2016-10-08 10:25 | PN ---
Progress Note (short form) - Note Progress Note: Covering for Dr. Young Consult dictated
[2016-10-08] MEDS: LABETALOL HCL 200 MG TABLET (FP) PO SCH ×2 (10:56→22:24)
[2016-10-08] MEDS: ASPIRIN COATED 81 MG TABLET.EC PO SCH (10:56)
[2016-10-08] MEDS ORDERED: PT OWN MED DRAWER 7, Y5N ONE (11:03)
[2016-10-08] MEDS: TICAGRELOR 90 MG TABLET PO SCH ×2 (11:05→22:24)
[2016-10-08] MEDS ORDERED: INSULIN (NOVOLOG) ASPART 100 UNITS/ML 10ML VIAL ONE ×2 (11:17→22:28)
--- NOTE | 2016-10-08 12:22 | CONS ---
DATE OF CONSULTATION: DATE OF DICTATION: 10/08/2016 REQUESTING PHYSICIAN: Brigido Reese MD I am covering for Dr. Moisés Young, who will resume coverage October 10. The patient is a 36-year-old female admitted through [facility] after several emergency room visits this week. She was seen on October 05 for evaluation of chest pain, vomiting. She was evaluated in the emergency room. She was discharged home. She was seen again October 06 for upper abdominal pain. She apparently was taking Reglan with minimal to no relief, and then she was seen again in the emergency room on October 07 and was admitted on October 07 given her continued episodes of chest pain, as well as nausea and vomiting. There has been no vomiting since she was in the emergency room. She is on chronic opiate analgesia at home. She has been given oxycodone in the emergency room and GI has been asked to evaluate further. She was last evaluated by Dr. Robin Cid during an admission in March of 2016. He felt that her similar symptoms were secondary to diabetic gastroparesis with cyclic vomiting syndrome superimposed secondary to marijuana use, and the patient does continue to smoke marijuana. She has been counseled regarding this in the past. She says that her last marijuana use was 2 weeks ago. She was also noted to have elevated blood pressure during this admission. There was some confusion if Dr. Wan Sifuentes was her digital content producer, however, Dr. Sifuentes himself did review the chart while she was evaluated in October of 2013 by him for nausea and vomiting, and while she was evaluated by him in October 2013 for nausea and vomiting, she did not follow up with him in the office. He did perform a gastroscopy at that time that revealed a normal esophagus, stomach, and small intestine. She did a biopsy of the duodenum and stomach that were negative for celiac disease and H. pylori respectively. She also had an unrevealing upper GI and small bowel series in May of 2013. She had an abdominal ultrasound that revealed a normal-appearing gallbladder, no suspicious findings in the liver. She had a CT scan of the chest, abdomen, and pelvis in March of 2013 with contrast, and on the basis of arterial phase imaging only, the soft tissue structures of the abdomen and pelvis demonstrated no gross abnormalities. In October of 2013, she was also given a proton pump inhibitor and initiated on Reglan, and Dr. Sifuentes at that time discussed the potential complications with long-term Reglan use such as Parkinsonian-like neurological symptoms, and she was accepting of those potential risks at the time. PAST MEDICAL HISTORY: Includes coronary artery disease leading to myocardial infarction and coronary artery stenting x3, hypertension, diabetes mellitus type 2, anxiety disorder, hypertensive crisis in the past leading to acute renal failure in November of 2012, history of 4 miscarriages, and there is questionable compliance for medication regimen to her medical care. She does state that she follows with Dr. Jaeger. PAST SURGICAL HISTORY: She denies. ALLERGIES: To KEFLEX. 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 She is an ex-smoker. She denies any alcohol or intravenous drug abuse. She smoke marijuana regularly. FAMILY HISTORY: Father is estranged. Mother is diabetic. She has 10 siblings, one of whom has sickle cell disease, but otherwise healthy. She has no children. MEDICATIONS: Prior to admission include aspirin 81 mg once daily, Januvia, Lipitor, Normodyne, Tylenol, metformin, Brilinta, Percocet, and Zofran. REVIEW OF SYSTEMS: She currently denies any vomiting. She does complain of nausea. No rectal bleeding. No diarrhea. No changes in bowel habits prior to her admission. She does complain of diaphoresis. She denies any lower extremity swelling. Currently, she denies any chest pain or shortness of breath. PHYSICAL EXAMINATION: General: Patient was found lying comfortably in her bed. She appeared to be in no apparent distress. Vital signs: She was afebrile with a pulse of 86, blood pressure of 165/110. HEENT: Sclerae anicteric. Neck: Supple. Heart: Examination of the heart revealed a regular rate with rhythm. No murmurs were appreciated. Lungs: Clear to auscultation bilaterally. Abdomen: The abdomen was nondistended. There were no scars. She had normoactive bowel sounds. No hepatosplenomegaly was appreciated. No masses were palpated. No hernias were detected. No tenderness was elicited. Extremities: Examination of the extremities revealed no lower extremity edema. Neurological: The patient was awake, alert, and oriented. LABORATORY EVALUATION: White blood count 6.5 down from 11.1 yesterday, hemoglobin 12.5, hematocrit 36.9, platelets of 270. INR of 1.14. Sodium 132, potassium 3.7, chloride 99, bicarbonate 23, BUN of 7, creatinine 1.0, glucose of 189, calcium of 8.1, AST of 14, ALT of 26, alkaline phosphatase of 49, total bilirubin 0.4, with an albumin of 3.9, total protein 7.4. RADIOLOGY REPORTS: Abdominal ultrasound performed October 07 revealed probable mild diffuse fatty infiltration of the liver, gallbladder was normal, free of stones, and there is no evidence of intra- or extrahepatic biliary ductal dilatation. IMPRESSION: A 36-year-old female with suspected diabetic gastroparesis, poorly controlled hypertension, and suspected to have cyclic vomiting a component of cyclic vomiting syndrome secondary to her chronic marijuana use. PLAN: 1. I question her compliance with medications for her hypertension and her diabetes and explained that both uncontrolled hypertension and diabetes could contribute to her GI symptomatology. I explained that continued marijuana use contributing to cyclic vomiting can also have deleterious effects. I explained that this needs to be stopped and she needs to take a continued active roll in the care of her medical problems including following with an automatic pilot mechanic. 2. Trial of erythromycin 125 mg p.o. t.i.d. while an inpatient if vomiting ensures or if not tolerating p.o. 3. Can continue PPI for now, however, would change to ranitidine 150 mg once daily upon discharge. 4. Low-fat, small-portion meals, i.e., 5-6 meals per day and avoidance of carbonated beverages 5. No focal GI intervention is planned at this time. Other recommendations pending the patients clinical course, and Dr. Young will resume coverage October 10. I think you for this consultative opportunity. MARIANA RUTHERFORD DO CD/[id number]
--- NOTE | 2016-10-08 13:28 | PN ---
Progress Note, Physician History of Present Illness: seen and examined today in nad. no overnight events. no new complaints. still nauseous - Current Medication List Current Medications: Active Medications Acetaminophen (Tylenol -) 650 mg PO Q6H PRN PRN Reason: FEVER OR PAIN Acetaminophen (Tylenol -) 325 mg PO Q6H PRN PRN Reason: PAIN Last Admin: 10/08/16 06:24 Dose: 325 mg Al Hydroxide/Mg Hydroxide (Mylanta Oral Suspension -) 30 ml PO TID [facility] Last Admin: 10/08/16 06:22 Dose: 30 ml Aspirin (Ecotrin -) 81 mg PO DAILY [facility] Last Admin: 10/08/16 10:56 Dose: 81 mg Atorvastatin Calcium (Lipitor -) 80 mg PO HS [facility] Last Admin: 10/07/16 22:29 Dose: 80 mg Clonazepam (Klonopin -) 1 mg PO Q8H PRN Last Admin: 10/08/16 07:44 Dose: 1 mg Insulin Aspart (Novolog Vial Sliding Scale -) 1 vial SQ ACHS [facility] PRN Reason: Protocol Last Admin: 10/08/16 11:37 Dose: 2 units Labetalol HCl (Normodyne -) 200 mg PO BID [facility] Last Admin: 10/08/16 10:56 Dose: 200 mg Ondansetron HCl (Zofran Injection) 4 mg IVPB Q6H PRN PRN Reason: NAUSEA Last Admin: 10/08/16 04:23 Dose: 4 mg Oxycodone HCl (Roxicodone -) 5 mg PO Q6H PRN PRN Reason: PAIN Last Admin: 10/08/16 06:23 Dose: 5 mg Pantoprazole Sodium (Protonix -) 40 mg PO DAILY [facility] Sitagliptin Phosphate (Januvia -) 25 mg PO DAILY@0700 [facility] Last Admin: 10/08/16 06:22 Dose: 25 mg Ticagrelor (Brilinta -) 90 mg PO BID [facility] Last Admin: 10/08/16 11:05 Dose: 90 mg - Objective Vital Signs: Vital Signs Temperature 98.6 F 10/08/16 10:55 Pulse Rate 99 H 10/08/16 10:55 Respiratory Rate 20 10/08/16 10:55 Blood Pressure 132/80 10/08/16 10:55 O2 Sat by Pulse Oximetry (%) 100 10/07/16 15:58 Constitutional: Yes: Well Nourished, No Distress, Calm Eyes: Yes: WNL, Conjunctiva Clear, EOM Intact, PERRL HENT: Yes: WNL, Atraumatic, Normocephalic Neck: Yes: WNL, Supple, Trachea Midline Cardiovascular: Yes: WNL, Regular Rate and Rhythm, S1, S2. No: Bradycardia, Tachycardia, Pulse Irregular, Bruit, JVD, Gallop, Murmur, Rub, S3, S4, Varicosities Respiratory: Yes: WNL, Regular, CTA Bilaterally. No: Rales, Rhonchi, Wheezes Gastrointestinal: Yes: Normal Bowel Sounds, Soft, Tenderness Musculoskeletal: Yes: WNL Extremities: Yes: WNL Edema: No Peripheral Pulses WNL: Yes Peripheral Pulses: Left Doralis Pedis: 2+, Right Dorsalis Pedis: 2+ Integumentary: Yes: WNL Neurological: Yes: WNL, Alert, Oriented, Cran Nerves II-XII Intact ...Motor Strength: WNL Psychiatric: Yes: WNL, Alert, Oriented Labs: CBC, BMP 10/08/16 08:30 10/08/16 08:30 INR, PTT INR 1.14 (0.82-1.09) 10/06/16 23:00 - ....Imaging Chest X-ray: Report Reviewed, Image Reviewed EKG: Report Reviewed, Image Reviewed Other: Report Reviewed, Image Reviewed Problem List - Problems (1) Chest pain Code(s): R07.9 - CHEST PAIN, UNSPECIFIED (2) Cyclic vomiting syndrome Code(s): G43.A0 - CYCLICAL VOMITING, NOT INTRACTABLE (3) Gastroparesis Code(s): K31.84 - GASTROPARESIS (4) Chronic diastolic (congestive) heart failure Code(s): I50.32 - CHRONIC DIASTOLIC (CONGESTIVE) HEART FAILURE (5) Cannabis abuse Code(s): F12.10 - CANNABIS ABUSE, UNCOMPLICATED (6) Coronary artery disease Code(s): I25.10 - ATHSCL HEART DISEASE OF [place] CORONARY ARTERY W/O ANG PCTRS Qualifiers: Coronary Disease-Associated Artery/Lesion type: [place] artery [place] vs. transplanted heart: [place] heart Associated angina: with unspecified angina Qualified Code(s): I25.119 - Atherosclerotic heart disease of [place] coronary artery with unspecified angina pectoris (7) Diabetes mellitus Code(s): E11.9 - TYPE 2 DIABETES MELLITUS WITHOUT COMPLICATIONS Qualifiers: Diabetes mellitus type: type 2 Diabetes mellitus complication status: with kidney complications Diabetes mellitus complication detail: with chronic kidney disease Chronic kidney disease stage: stage 3 (moderate) Qualified Code(s): E11.22 - Type 2 diabetes mellitus with diabetic chronic kidney disease; N18.1 - Chronic kidney disease, stage 1; 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 (8) Hyperlipidemia Code(s): E78.5 - HYPERLIPIDEMIA, UNSPECIFIED Qualifiers: Hyperlipidemia type: unspecified Qualified Code(s): E78.5 - Hyperlipidemia, unspecified (9) Hypertension Code(s): I10 - ESSENTIAL (PRIMARY) HYPERTENSION Qualifiers: Hypertension type: essential hypertension Qualified Code(s): I10 - Essential (primary) hypertension Assessment/Plan 36 year old woman with a history of HTN, HLD, DMI II, CAD prior MN's, prior LAD stent 2013, last PCI was POBA LAD 2014, adm 06/2016 with nstemi cardiac cath done showed no sig progression of disease those no PCI performed, CKD, Chronic diastolic CHF, marijuana abuse with cyclical vomiting syndrome and multiple admission for this presents with persistent nausea and vomiting with associated chest pain. She was seen and examined this am in nad. states she is feeling better currently. states that her chest pain is similar to her prior nausea and vomiting episodes, not the same as prior MN. Chest pain-atypical, this episode unlikely cardiac, likely related to GI issues , nausea, vomiting, known CAD, prior MN's, prior stents -cardiac enzymes wnl x 3 -cont home cardiac meds -GI evaluating -no additional inpatient ischemic work up needed at this point -ok from a cardiac standpoint for discharge when medically ready DM -as per PMD HTN-above goal during admission but last reading 132/80 -cont current meds for now and re-evaluate
[2016-10-08] MEDS: PANTOPRAZOLE 40 MG TABLET (FP) PO SCH (13:42)
--- NOTE | 2016-10-08 16:07 | PN ---
Progress Note, Physician Chief Complaint: THIS IS MY FIRST ENCOUNTER WITH THIS PATIENT CHART AND EVENTS REVIEWED DENIES CHEST PAIN NO SOB - Current Medication List Current Medications: Active Medications Acetaminophen (Tylenol -) 650 mg PO Q6H PRN PRN Reason: FEVER OR PAIN Acetaminophen (Tylenol -) 325 mg PO Q6H PRN PRN Reason: PAIN Last Admin: 10/08/16 06:24 Dose: 325 mg Al Hydroxide/Mg Hydroxide (Mylanta Oral Suspension -) 30 ml PO TID [facility] Last Admin: 10/08/16 13:43 Dose: Not Given Aspirin (Ecotrin -) 81 mg PO DAILY [facility] Last Admin: 10/08/16 10:56 Dose: 81 mg Atorvastatin Calcium (Lipitor -) 80 mg PO HS [facility] Last Admin: 10/07/16 22:29 Dose: 80 mg Clonazepam (Klonopin -) 1 mg PO Q8H PRN Last Admin: 10/08/16 16:00 Dose: 1 mg Insulin Aspart (Novolog Vial Sliding Scale -) 1 vial SQ ACHS [facility] PRN Reason: Protocol Last Admin: 10/08/16 11:37 Dose: 2 units Labetalol HCl (Normodyne -) 200 mg PO BID [facility] Last Admin: 10/08/16 10:56 Dose: 200 mg Ondansetron HCl (Zofran Injection) 4 mg IVPB Q6H PRN PRN Reason: NAUSEA Last Admin: 10/08/16 04:23 Dose: 4 mg Oxycodone HCl (Roxicodone -) 5 mg PO Q6H PRN PRN Reason: PAIN Last Admin: 10/08/16 06:23 Dose: 5 mg Pantoprazole Sodium (Protonix -) 40 mg PO DAILY [facility] Last Admin: 10/08/16 13:42 Dose: 40 mg Sitagliptin Phosphate (Januvia -) 25 mg PO DAILY@0700 [facility] Last Admin: 10/08/16 06:22 Dose: 25 mg Ticagrelor (Brilinta -) 90 mg PO BID [facility] Last Admin: 10/08/16 11:05 Dose: 90 mg - Objective Vital Signs: Vital Signs Temperature 98.6 F 10/08/16 10:55 Pulse Rate 99 H 10/08/16 10:55 Respiratory Rate 20 10/08/16 10:55 Blood Pressure 132/80 10/08/16 10:55 O2 Sat by Pulse Oximetry (%) 100 10/07/16 15:58 Constitutional: Yes: Mild Distress Eyes: Yes: WNL HENT: Yes: WNL Neck: Yes: WNL Cardiovascular: Yes: WNL Respiratory: Yes: WNL Gastrointestinal: Yes: WNL ...Rectal Exam: Yes: WNL Genitourinary: Yes: WNL Musculoskeletal: Yes: WNL Extremities: Yes: WNL Edema: No Peripheral Pulses WNL: Yes Integumentary: Yes: WNL Wound/Incision: Yes: Clean/Dry Neurological: Yes: WNL ...Motor Strength: WNL Psychiatric: Yes: WNL Labs: CBC, BMP 10/08/16 08:30 10/08/16 08:30 INR, PTT INR 1.14 (0.82-1.09) 10/06/16 23:00 Problem List - Problems (1) Chest pain Code(s): R07.9 - CHEST PAIN, UNSPECIFIED (2) Cyclic vomiting syndrome Code(s): G43.A0 - CYCLICAL VOMITING, NOT INTRACTABLE (3) Dehydration Code(s): E86.0 - DEHYDRATION (4) Gastroparesis Code(s): K31.84 - GASTROPARESIS (5) Anxiety Code(s): F41.9 - ANXIETY DISORDER, UNSPECIFIED (6) Hypertension Code(s): I10 - ESSENTIAL (PRIMARY) HYPERTENSION Qualifiers: Hypertension type: essential hypertension Qualified Code(s): I10 - Essential (primary) hypertension Assessment/Plan BLOOD PRESSURE CONTROL IMPROVING LABS REVIEWED SONO ABD VOMITING EVALUATED, SONO AND GI CONSULT OOB TO CHAIR PSYCH DIOGENES RICHARD STARTED CLEAR DIET
--- NOTE | 2016-10-08 16:15 | CONSULT ---
Consult - text type - Consultation Consultation Note: 36 Year old AA female admitted for acute Abdomen. History of chronic and recurrant Cardiac problems. No history of Psych Illness or currant tratmemt. MEDS: Klonapin 1mg po Q8hrs PRN.Ms: alert, oriented, good eye contact, reprts feeling anxious due to on going mediacl conditions. No evidence of any acute psychosis. denies any suicidal ideas or plans.REC: Continue with Klonapin .
[2016-10-08] MEDS: PANTOPRAZOLE SODIUM 40 MG/100 ML PRE-DOCKED IVPB SCH (17:05)
[2016-10-08] MEDS: ATORVASTATIN CA 80 MG TABLET (FP) PO SCH (22:24)
[2016-10-09] MEDS: clonazePAM 0.5 MG TABLET PO PRN ×2 (00:04→14:00)
[2016-10-09] MEDS: sitaGLIPtin PHOSPHATE 25 MG TABLET (FP) PO SCH (06:32)
[2016-10-09] MEDS: MAG HYDROX/AL HYDROX/SIMETH 30 ML UNIT-DOSE CUP PO SCH ×2 (06:32→14:32)
[2016-10-09] MEDS: INSULIN SLIDING SCALE (NOVOLOG) 1 VIAL SQ SCH ×2 (06:37→12:00)
[2016-10-09] MEDS ORDERED: PT OWN MED DRAWER 7, Y5N ONE (10:31)
[2016-10-09] MEDS: TICAGRELOR 90 MG TABLET PO SCH (10:36)
[2016-10-09] MEDS: ASPIRIN COATED 81 MG TABLET.EC PO SCH (10:36)
[2016-10-09] MEDS: LABETALOL HCL 200 MG TABLET (FP) PO SCH (10:36)
[2016-10-09] MEDS: PANTOPRAZOLE 40 MG TABLET (FP) PO SCH (10:36)
[2016-10-09 11:00] VITALS: BP 115/75; PULSE 98; TEMP 98.3
[2016-10-09] MEDS ORDERED: INSULIN (NOVOLOG) ASPART 100 UNITS/ML 10ML VIAL ONE (11:58)
--- NOTE | 2016-10-09 13:15 | DS ---
Physical Examination Vital Signs: Vital Signs Temperature 98.3 F 10/09/16 10:00 Pulse Rate 98 H 10/09/16 10:00 Respiratory Rate 20 10/09/16 10:00 Blood Pressure 115/75 10/09/16 10:00 O2 Sat by Pulse Oximetry (%) 100 10/09/16 09:00 Findings/Remarks: FEELING BETTER, TOLERATING PO DIET BP CONTROLLED Constitutional: Yes: Well Nourished Eyes: Yes: WNL HENT: Yes: WNL Neck: Yes: WNL Cardiovascular: Yes: WNL Respiratory: Yes: WNL Gastrointestinal: Yes: WNL Renal/: Yes: WNL Musculoskeletal: Yes: WNL Extremities: Yes: WNL Edema: No Peripheral Pulses WNL: Yes Integumentary: Yes: WNL Wound/Incision: Yes: Clean/Dry Neurological: Yes: WNL ...Motor Strength: WNL Psychiatric: Yes: WNL Labs: CBC, BMP 10/08/16 08:30 10/08/16 08:30 Discharge Summary Reason For Visit: CHEST PAIN, HYPERTENSIVE Current Active Problems Chest pain (Acute) Cyclic vomiting syndrome (Acute) Dehydration (Acute) Gastroparesis (Acute) Procedures: Principal: SONO ABD Other Procedures: LABS Hospital Course: ADMITTED WORKED UP FOR MALIGNANT HTN, ABD PAIN, MEDICATIONS GIVEN AND BP CONTROLLED Condition: Improved - Instructions Diet, Activity, Other Instructions: LOW SODIUM Referrals: Tiago Jaeger MD [Primary Care Provider] - Disposition: HOME - Home Medications Comprehensive Discharge Medication List: Ambulatory Orders Aspirin [Aspirin EC] 81 mg PO DAILY 11/13/15 Acetaminophen [Tylenol .Regular Strength -] 650 mg PO Q6H PRN #0 tablet Atorvastatin Ca [Lipitor] 80 mg PO HS tablet 06/27/16 Labetalol HCl [Normodyne -] 200 mg PO BID tablet 06/27/16 Sitagliptin Phosphate [Januvia -] 25 mg PO DAILY@0700 tab 06/27/16 Metformin HCl 500 mg PO BID 08/25/16 Ticagrelor [Brilinta -] 90 mg PO BID 08/25/16 Oxycodone HCl/Acetaminophen [Percocet 5-325 mg Tablet] 1 - 2 tab PO Q6H #50 tab MDD 8 09/02/16 Ondansetron [Zofran *Odt*] 8 mg SL TID PRN #30 od.tablet 10/05/16
== END 2016-10-09 14:46 | disposition home or self-care (01) | DRG 48 ==
LOC: JER 21:27 → JERBED 10-07 03:52 → UNDOADMIN 10-07 03:52 → JERBED 10-07 06:11 → J5S 10-07 15:31 → J7W 10-08 14:44
PROVIDERS: ADMIT Family Medicine; ATTEND Family Medicine
DX: E11.43 Type 2 diabetes mellitus with diabetic autonomic (poly)neuropathy (principal); K31.84 Gastroparesis; Z79.84 Long term (current) use of oral hypoglycemic drugs; I25.10 Atherosclerotic heart disease of native coronary artery without angina pectoris; Z95.5 Presence of coronary angioplasty implant and graft; I25.2 Old myocardial infarction; E78.00 Pure hypercholesterolemia, unspecified; I16.0 Hypertensive urgency; I11.0 Hypertensive heart disease with heart failure; I50.32 Chronic diastolic (congestive) heart failure; G43.A0 Cyclical vomiting, in migraine, not intractable; F12.10 Cannabis abuse, uncomplicated; E11.22 Type 2 diabetes mellitus with diabetic chronic kidney disease; I13.0 Hypertensive heart and chronic kidney disease with heart failure and stage 1 through stage 4 chronic kidney disease, or unspecified chronic kidney disease; N18.1 Chronic kidney disease, stage 1; Z79.4 Long term (current) use of insulin; R07.89 Other chest pain
CPT/HCPCS: 36415; 71010-TC; 76700-TC; 80048; 80053; 82550; 82553; 83735; 83880; 84484; 85025; 85610; 93005; 93010; 99285-25

== ENCOUNTER 2017-01-22 14:31 | Emergency (ER) | payer BC ==
[2017-01-22 14:41] VITALS: TEMP 98.4; BMI 28.6
[2017-01-22] MEDS ORDERED: SODIUM CHLORIDE 1,000 ML IV ONE (14:57)
[2017-01-22] MEDS ORDERED: ONDANSETRON 4 MG/2 ML VIAL IVPB ONE (14:57)
[2017-01-22] MEDS ORDERED: HYDROmorphone HCL CARPU-JECT 2 MG/1 ML DISP.SYRIN IVPUSH ONE ×2 (14:57→16:18)
[2017-01-22] MEDS ORDERED: FAMOTIDINE 20 MG/50 ML IVPB 20 MG in PREMIX 50 IVPB ONE (15:02)
[2017-01-22] MEDS ORDERED: MAG HYDROX/AL HYDROX/SIMETH 355 ML ORAL.SUSP PO ONE (15:02)
--- NOTE | 2017-01-22 15:02 | PDOC ---
History of Present Illness - General Chief Complaint: Nausea/Vomiting Stated Complaint: CHEST PAIN Time Seen by Provider: 01/22/17 14:37 History Source: Patient Exam Limitations: No Limitations - History of Present Illness Travel History: No Initial Comments: 01/22/17 14:58 36y F hx of htn, hl, cad s/p 4 stents, chf, dm, severe gastroparesis presents with epigsatric pain, vomiting since 2 am last night. pt states she was feeling well until this morning at 2, when she started feeling nausus/vominting that was nbnb, associated with intermittent pains inthe epigastrium/mid chest. pt denies any sob, fevers, bpr/diarrhea, dysuria, hematura, bourne. pt states her gastroparesis is bad and she frequently goes to [facility], gets conner emeds and feels better and is ultimately idscharged. Pt states her sypmtoms is similar to prior episodes of gastroparesis. Allergies: Cephalexin Monohydrate. Past Surgical History: Caesarian Section. Stent placements x3. Rotator cuff repair. Social History: Former tobacco use. History of drug abuse. Current Marijuana use. No ETOH use. Primary Care Physician: Dr. Tiago Jaeger [phone] Job Site Superintendent: Dr. Juan Manuel Ng [phone] Entry Level: Dr. Wan Sifuentes [phone] Past History - Past Medical History Allergies/Adverse Reactions: Allergies Allergy/AdvReac Type Severity Reaction Status Date / Time cephalexin monohydrate Allergy Severe Hives Verified 10/06/16 21:34 [From [facility]] Home Medications: Ambulatory Orders Aspirin [Aspirin EC] 81 mg PO DAILY 11/13/15 Acetaminophen [Tylenol .Regular Strength -] 650 mg PO Q6H PRN #0 tablet Metformin HCl 500 mg PO BID 08/25/16 Ticagrelor [Brilinta -] 90 mg PO BID 08/25/16 Oxycodone HCl/Acetaminophen [Percocet 5-325 mg Tablet] 1 - 2 tab PO Q6H #50 tab MDD 8 09/02/16 Ondansetron [Zofran *Odt*] 8 mg SL TID PRN #30 od.tablet 10/05/16 Atorvastatin Ca [Lipitor] 80 mg PO HS #30 tablet 10/09/16 Labetalol HCl [Normodyne -] 200 mg PO BID #60 tablet 10/09/16 Sitagliptin Phosphate [Januvia -] 25 mg PO DAILY@0700 #30 tab 10/09/16 Ticagrelor [Brilinta -] 90 mg PO BID tablet 10/09/16 Anemia: No Asthma: No Cancer: (cervical ca) Cardiac Disorders: Yes ([place] X 6) CVA: No COPD: No CHF: Yes Dementia: No Diabetes: Yes GI Disorders: Yes (gastroparesis) Disorders: No HTN: Yes Hypercholesterolemia: Yes Liver Disease: No Psychiatric Problems: Yes (anxiety) Suicide Attempt (Hx): No Seizures: No Thyroid Disease: No - Surgical History Abdominal Surgery: No Appendectomy: No Cardiac Surgery: Yes (4 STENTS) Cholecystectomy: No Lung Surgery: No Neurologic Surgery: No Orthopedic Surgery: No - Reproductive History (#): 5 Para: 0 Cervical CA: Yes Dysfunctional Uterine Bleeding: Yes Ectopic : Yes Endometrial CA: Yes Therapeutic (s) & number: Yes (1) Spontaneous : 4 - Immunization History Immunization Up to Date: Yes - Psycho/Social/Smoking Cessation Hx Anxiety: No Suicidal Ideation: No Smoking Status: Yes (QUIT 3 MONTHS AGO) Smoking History: Never smoked Have you smoked in the past 12 months: No Number of Cigarettes Smoked Daily: 1 If you are a former smoker, when did you quit?: t-19 Information on smoking cessation initiated: No 'Breaking Loose' booklet given: 08/25/16 Hx Alcohol Use: No Drug/Substance Use Hx: No Substance Use Type: Marijuana Hx Substance Use Treatment: No Review of Systems - Review of Systems Able to Perform ROS?: Yes Comments:: 01/22/17 15:09 Constitutional - no reported Fever, Chills, HEENT: no reported vision changes, sore throat Respiratory: no reported cough, sob, hemoptysis Cardiac: no reported chest pain, palpitations, light headedness, leg swelling Abd/GI: +abd pain, nausea, vomiting, no reported blood per rectum, melena, diarrhea : no reported dysuria, frequency, discharge Musculskelatal - no reported back pain, joint swelling skin - no reported bruising, erythema, rash neurological: no reported headache, numbness, focal weakness, tingling, ataxia, hematologic: no reported anemia, easy bruising, easy bleeding *Physical Exam - Vital Signs Last Vital Signs Temp Pulse Resp BP Pulse Ox 98.4 F 20 L 124 H 177/108 10 L 01/22/17 14:38 01/22/17 14:38 01/22/17 14:38 01/22/17 14:38 01/22/17 14:38 - Physical Exam Comments: 01/22/17 15:16 GENERAL: The patient is awake, alert, and fully oriented, Nontoxic - in no acute distress. HEAD: Normocephalic, atraumatic. EYES: extraocular movements intact, sclera anicteric, conjunctiva clear. ENT: Normal voice, dry mucous membranes. NECK: Normal range of motion, supple LUNGS: Breath sounds equal, clear to auscultation bilaterally. No wheezes, no rhonchi, no rales. HEART: tachycardic w/o m/r/g ABDOMEN: Soft, nontender, normoactive bowel sounds. No guarding, no rebound. . No CVA tenderness EXTREMITIES: Normal range of motion, no edema. NEUROLOGICAL: No facial assymetry, Normal speech, PSYCH: Normal mood, normal affect. SKIN: Warm, Dry, normal turgor, Heart Score/ECG Review - ECG Impressions Comment:: 01/22/17 15:18 Twelve-lead EKG was performed and reviewed by me. There is normal sinus rhythm with a rate of [address] or T wave abnormalities. Impression: sinus tachycardia ED Treatment Course - LABORATORY CBC & Chemistry Diagram: 01/22/17 15:21 01/22/17 15:21 - RADIOLOGY Radiology Studies Ordered: Category Date Time Status CHEST X-RAY PORTABLE* [RAD] Stat Radiology 01/22/17 14:57 Ordered Medical Decision Making - Medical Decision Making 01/22/17 15:17 01/22/17 15:17 +tachycardia, likely due to dehydration as pt canont keept anything down likel gastroparesis, but will consider acs as pt has extensive cardiac disease pts vitals were mis transcribed - will have RN fix it will give fluids, zofran, pepcid/maalox will ck labs, ekg, cxr will reassess 01/23/17 19:01 pt signed out to to evening physician *DC/Admit/Observation/Transfer Diagnosis at time of Disposition: Diabetic gastroparesis - Discharge Dispostion Disposition: HOME Condition at time of disposition: Stable - Referrals Referrals: Mike Duran MD [Staff Physician] - Wan Sifuentes MD [Staff Physician] - Bayron Aleman MD [Staff Physician] - Dilip Crane MD [Primary Care Provider] - Carlos Chirinos MD [Staff Physician] - Leesa Walker MD [Staff Physician] - - Patient Instructions Printed Discharge Instructions: DI for Gastroparesis Additional Instructions: please keep your appointment with the computer numeric control setter return to the emergency department for any worsening symptoms
[2017-01-22] MEDS ORDERED: FAMOTIDINE 20 MG/50 ML IVPB 50 ML IVPB ONE (15:07)
[2017-01-22] MEDS ORDERED: MAG HYDROX/AL HYDROX/SIMETH 30 ML UNIT-DOSE CUP ONE (15:07)
[2017-01-22] MEDS ORDERED: ONDANSETRON 4 MG/2 ML VIAL ONE ×2 (15:07→22:10)
[2017-01-22] MEDS ORDERED: HYDROmorphone HCL CARPU-JECT 1 MG/1 ML DISP.SYRIN ONE ×2 (15:07→16:27)
[2017-01-22 15:30] LABS: MCHC 32.5 g/dl (32.0-36.0); MEAN CELL VOLUME 86.1 fl (80-96); MEAN PLT VOLUME 7.6 fl (7.5-11.1); PLATELET COUNT 391 K/MM3 (134-434); RDW 14.6 % (11.6-15.6); WHITE BLOOD COUNT 16.2 K/mm3 (4.0-10.0)
[2017-01-22 16:06] LABS: ALBUMIN 4.8 g/dl (3.4-5.0); ANION GAP 13 (8-16); BILIRUBIN,TOTAL 0.6 mg/dL (0.2-1.0); CALCIUM 9.4 mg/dL (8.5-10.1); CO2 23 mmol/L (21-32); COCKROFT - GAULT 81.5065; CREATININE 1.3 mg/dL (0.55-1.02); GLUCOSE,RANDOM 275 mg/dL (74-106); SGPT/ALT 31 U/L (12-78); TOT PROT 9.3 g/dl (6.4-8.2)
[2017-01-22 16:09] LABS: ALK PHOS 69 U/L (45-117); TROPONIN I < 0.02 ng/ml (0.00-0.05)
[2017-01-22 16:16] LABS: SGOT/AST 28 U/L (15-37)
[2017-01-22 17:04] LABS: URINE APPEARANCE CLEAR; URINE BILIRUBIN NEGATIVE (NEGATIVE); URINE COLOR LTYELLOW; URINE GLUCOSE (UA) NEGATIVE (NEGATIVE); URINE KETONE NEGATIVE (NEGATIVE); URINE LEUK ESTERASE NEGATIVE (NEGATIVE); URINE NITRITE NEGATIVE (NEGATIVE); URINE PROTEIN NEGATIVE (NEGATIVE); URINE UROBILINOGEN NEGATIVE E.U./dl (0.2-1.0)
[2017-01-22 17:21] LABS: URINE BLOOD 2+ (NEGATIVE)
[2017-01-22 17:22] LABS: URINE RBC 7 /hpf (0-3); URINE WBC NONE SEEN /hpf (3-5)
[2017-01-22 17:23] LABS: URINE HYALINE CAST 34 /lpf; URINE MUCUS RARE
[2017-01-22 19:01] VITALS: BP 159/87; PULSE 94
--- NOTE | 2017-01-22 20:17 | PDOC ---
*Physical Exam - Vital Signs Last Vital Signs Temp Pulse Resp BP Pulse Ox 98.4 F 94 H 18 159/87 100 01/22/17 19:00 01/22/17 19:00 01/22/17 19:00 01/22/17 19:00 01/22/17 19:00 ED Treatment Course - LABORATORY CBC & Chemistry Diagram: 01/22/17 15:21 01/22/17 15:21 - ADDITIONAL ORDERS Additional order review: Laboratory Results 01/22/17 01/22/17 15:21 15:21 Sodium 131 L Potassium 4.3 Chloride 95 L Carbon Dioxide 23 Anion Gap 13 BUN 13 D Creatinine 1.3 H D Creat Clearance w eGFR 45.84 Random Glucose 275 H D Calcium 9.4 Total Bilirubin 0.6 D AST 28 D ALT 31 Alkaline Phosphatase 69 D Creatine Kinase 234 H D CK-MB (CK-2) 1.910 Troponin I < 0.02 Total Protein 9.3 H D Albumin 4.8 D Serum , Qual Negative Urine Color Ltyellow Urine Appearance Clear Urine pH 5.0 D Urine Protein Negative Urine Glucose (UA) Negative Urine Ketones Negative Urine Blood 2+ H Urine Nitrite Negative Urine Bilirubin Negative Urine Urobilinogen Negative Ur Leukocyte Esterase Negative Urine RBC 7 Urine WBC None seen Ur Epithelial Cells Few Hyaline Casts 34 Urine Mucus Rare 01/22/17 15:21 RBC 4.50 MCV 86.1 MCHC 32.5 RDW 14.6 MPV 7.6 Neutrophils % 90.0 H D Lymphocytes % 5.0 L D Monocytes % 4.0 Eosinophils % 0.0 D - Medications Given in the ED: ED Medications Discontinued Medications Generic Name Dose Route Start Last Admin Trade Name Tarun PRN Reason Stop Dose Admin Al Hydroxide/Mg Hydroxide 30 ml 01/22/17 15:02 01/22/17 15:10 Mylanta Suspension - PO 01/22/17 15:03 30 ml ONCE ONE Administration Hydromorphone HCl 0.5 mg 01/22/17 14:57 01/22/17 15:10 Dilaudid Injection - IVPUSH 01/22/17 14:58 0.5 mg ONCE ONE Administration Hydromorphone HCl 1 mg 01/22/17 16:18 01/22/17 16:40 Dilaudid Injection - IVPUSH 01/22/17 16:19 1 mg ONCE ONE Administration Sodium Chloride 1,000 mls @ 1,000 mls/hr 01/22/17 14:57 01/22/17 15:10 Normal Saline - IV 01/22/17 15:56 1,000 mls/hr .Q1H ONE Administration Famotidine/Sodium Chloride 20 50 mls @ 100 mls/hr 01/22/17 15:02 01/22/17 15:15 mg/ Miscellaneous IVPB 01/22/17 15:31 100 mls/hr ONCE ONE Administration Ondansetron HCl 4 mg 01/22/17 14:57 01/22/17 15:10 Zofran Injection IVPB 01/22/17 14:58 4 mg ONCE ONE Administration Medical Decision Making - Medical Decision Making 01/22/17 20:13 36-year-old female presented with history of IDDM and chronic gastroparesis and p/w nausea and vomiting -she has an appt with Dr Sifuentes but it is not until next month --she has a soft,nontender abdomen -after receiving zofran her vomiting stopped UA is negative -negative preg test -sets of negative troponins -glucose is 275 -cxr napd 01/22/17 20:18 01/22/17 21:31 *DC/Admit/Observation/Transfer Diagnosis at time of Disposition: Diabetic gastroparesis - Discharge Dispostion Disposition: HOME Condition at time of disposition: Stable - Referrals Referrals: Dilip Crane MD [Primary Care Provider] - Wan Sifuentes MD [Staff Physician] - Leesa Walker MD [Staff Physician] - Carlos Chirinos MD [Staff Physician] - Bayron Aleman MD [Staff Physician] - Mike Duran MD [Staff Physician] - - Patient Instructions Printed Discharge Instructions: DI for Gastroparesis Additional Instructions: please keep your appointment with the potato spotter return to the emergency department for any worsening symptoms
[2017-01-22 21:01] LABS: TROPONIN I 0.02 ng/ml (0.00-0.05)
[2017-01-22] MEDS ORDERED: ONDANSETRON 4 MG/2 ML VIAL IVPUSH ONE (22:08)
--- NOTE | 2017-01-23 08:59 | EKG ---
Test Reason : Blood Pressure : / mmHG Vent. Rate : 114 BPM Atrial Rate : 114 BPM P-R Int : 144 ms QRS Dur : 080 ms QT Int : 348 ms P-R-T Axes : 053 033 049 degrees QTc Int : 479 ms SINUS TACHYCARDIA POSSIBLE LEFT ATRIAL ENLARGEMENT CANNOT RULE OUT ANTERIOR INFARCT , AGE UNDETERMINED ABNORMAL ECG WHEN COMPARED WITH ECG OF 06-OCT-2016 23:22, NO SIGNIFICANT CHANGE WAS FOUND Confirmed by DIMITRI MANRIQUEZ MD ([id number]) on 01/23/2017 8:59:39 AM Referred By: Confirmed By:DIMITRI MANRIQUEZ MD
== END 2017-01-22 22:23 | disposition home or self-care (01) ==
LOC: JER 14:31
PROC: 3E033GC Introduction of Other Therapeutic Substance into Peripheral Vein, Percutaneous Approach (ICD-10-PCS; principal; 2017-01-22)
PROC: 3E033NZ Introduction of Analgesics, Hypnotics, Sedatives into Peripheral Vein, Percutaneous Approach (ICD-10-PCS; 2017-01-22)
DX: E11.43 Type 2 diabetes mellitus with diabetic autonomic (poly)neuropathy (principal); K31.84 Gastroparesis; Z79.84 Long term (current) use of oral hypoglycemic drugs; I25.2 Old myocardial infarction; I11.0 Hypertensive heart disease with heart failure; Z95.5 Presence of coronary angioplasty implant and graft; E11.9 Type 2 diabetes mellitus without complications; E78.00 Pure hypercholesterolemia, unspecified
CPT/HCPCS: 36415; 71010-TC; 80053; 81003; 81015; 82550; 82553; 84484; 84703; 85025; 93005; 93010; 99283-25

== ENCOUNTER 2017-02-24 11:05 | Day surgery (SDC) | payer BC ==
[2017-02-24] MEDS ORDERED: LIDOCAINE HCL/PF 2% SDV 5ML VIAL ONE (11:31)
[2017-02-24] MEDS ORDERED: PROPOFOL 20 ML ONE ×3 (11:31)
[2017-02-24 12:22] VITALS: BMI 27.4
[2017-02-24 13:49] VITALS: TEMP 97.7
[2017-02-24] MEDS ORDERED: LABETALOL HCL 5 MG/1 ML (100MG/20 ML VIAL) ONE (13:51)
[2017-02-24] MEDS ORDERED: ONDANSETRON 4 MG/2 ML VIAL IVPUSH ONE (14:11)
[2017-02-24 14:48] VITALS: BP 149/70; PULSE 70
--- NOTE | 2017-02-28 11:35 | PATH ---
Surgical Pathology Report Patient Name: BEVERLEY PARKER [facility]. Rec. #: [id number] /Age/Gender: 1980 (Age: 36) / F Account: [id number] Location: [facility]ENDOSCOPY Taken: 02/24/2017 Received: 02/27/2017 Reported: 02/28/2017 Physicians: Wan Sifuentes M.D. Specimen(s) Received A: BX 2ND PORTION DUODENUM & BULB B: BX SUSPECTED DUODENAL POLYP C: BX STOMACH D: BX DISTAL ESOPHAGUS Clinical History Abdominal pain, nausea and vomiting Duodenitis, gastritis, possible duodenal polyp, rule out adenoma Final Diagnosis A. DUODENUM, SECOND PORTION AND BULB, BIOPSY: DUODENAL MUCOSA WITH MARKED CHRONIC INFLAMMATION AND WALE'[place] GL[place]S HYPERPLASIA. NO DYSPLASIA/ADENOMA IDENTIFIED. NO HISTOLOGIC EVIDENCE OF GLUTEN SENSITIVE ENTEROPATHY (CELIAC DISEASE). B. DUODENUM, SUSPECTED POLYP, BIOPSY: DUODENAL MUCOSA WITH CHRONIC INFLAMMATION. NO DYSPLASIA/ADENOMA IDENTIFIED C. STOMACH, BIOPSY: GASTRIC ANTRAL MUCOSA WITH MODERATE CHRONIC GASTRITIS AND MILD REACTIVE GASTROPATHY. IMMUNOSTAIN FOR H. PYLORI IS NEGATIVE FOR ORGANISMS. D. ESOPHAGUS, DISTAL, BIOPSY: SQUAMOUS EPITHELIUM WITH MARKED CHRONIC INFLAMMATION AND REFLUX TYPE CHANGES. NO COLUMNAR EPITHELIUM PRESENT (NO INTESTINAL METAPLASIA/WYNN'S ESOPHAGUS IDENTIFIED). NO EVIDENCE OF EOSINOPHILIC ESOPHAGITIS. Electronically Signed Marco Cuevas M.D. Gross Description A. Received in formalin, labeled "biopsy second portion of duodenum and bulb" are 3 colmenares, irregular portions of soft tissue ranging from 0.3-0.4 cm in greatest dimension. The specimens are submitted in toto in one cassette. B. Received in formalin, labeled "biopsy ampulla" are 3 colmenares, irregular portions of soft tissue averaging 0.3 cm in greatest dimension. The specimens are submitted in toto in one cassette. C. Received in formalin, labeled "biopsy stomach" are 2 colmenares, irregular portions of soft tissue measuring 0.3 and 0.5 cm in greatest dimension. The specimens are submitted in toto in one cassette. D. Received in formalin, labeled "biopsy distal mid esophagus" are 4 colmenares, irregular portions of soft tissue ranging from 0.1-0.6 cm in greatest dimension. The specimens are submitted in toto in one cassette. 02/27/201702/27/2017
== END 2017-02-24 15:06 | disposition home or self-care (01) ==
LOC: JASU-ENDO 11:05
PROVIDERS: ATTEND Internal Medicine Gastroenterology
PROC: 0DB98ZX Excision of Duodenum, Via Natural or Artificial Opening Endoscopic, Diagnostic (ICD-10-PCS; 2017-02-24)
PROC: 0DB68ZX Excision of Stomach, Via Natural or Artificial Opening Endoscopic, Diagnostic (ICD-10-PCS; 2017-02-24)
PROC: 0DB28ZX Excision of Middle Esophagus, Via Natural or Artificial Opening Endoscopic, Diagnostic (ICD-10-PCS; 2017-02-24)
PROC: 0DB38ZX Excision of Lower Esophagus, Via Natural or Artificial Opening Endoscopic, Diagnostic (ICD-10-PCS; principal; 2017-02-24 12:00)
DX: K29.00 Acute gastritis without bleeding (principal); K29.80 Duodenitis without bleeding; K31.7 Polyp of stomach and duodenum
CPT/HCPCS: 84703; 88305-TC; 88342-TC

== ENCOUNTER 2017-03-22 08:14 | Inpatient (IN) | payer BC ==
[2017-03-22 08:23] VITALS: BMI 28.0
[2017-03-22] MEDS ORDERED: METOCLOPRAMIDE HCL INJECTION 10 MG/2 ML VIAL IVPB ONE (09:47)
[2017-03-22] MEDS ORDERED: ONDANSETRON 4 MG/2 ML VIAL IVPUSH ONE (09:48)
[2017-03-22] MEDS ORDERED: FAMOTIDINE 20 MG/50 ML IVPB 50 ML IVPB ONE ×2 (09:48→10:08)
[2017-03-22] MEDS ORDERED: LIDOCAINE VISCOUS 2% ORAL/TOP 20 ML UNIT-DOSE CUP MM ONE (09:50)
[2017-03-22] MEDS ORDERED: MAG HYDROX/AL HYDROX/SIMETH 30 ML UNIT-DOSE CUP PO ONE (09:50)
[2017-03-22] MEDS ORDERED: MAG HYDROX/AL HYDROX/SIMETH 30 ML UNIT-DOSE CUP ONE ×2 (10:08→10:26)
[2017-03-22] MEDS ORDERED: ONDANSETRON 4 MG/2 ML VIAL ONE (10:08)
[2017-03-22] MEDS ORDERED: METOCLOPRAMIDE HCL INJECTION 10 MG/2 ML VIAL ONE (10:08)
[2017-03-22 10:23] LABS: EOSINOPHIL 0.7 % (0-4.5); MCH 28.2 pg (25.7-33.7); MEAN PLT VOLUME 6.8 fl (7.5-11.1); NEUTROPHILS 78.6 % (42.8-82.8); PLATELET COUNT 412 K/MM3 (134-434); RDW 15.9 % (11.6-15.6); WHITE BLOOD COUNT 9.4 K/mm3 (4.0-10.0)
[2017-03-22] MEDS ORDERED: ASPIRIN 81 MG CHEWABLE TABLETS ONE (10:30)
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
[2017-03-22 10:45] LABS: ALBUMIN 4.7 g/dl (3.4-5.0); ANION GAP 11 (8-16); BILIRUBIN,TOTAL 0.3 mg/dL (0.2-1.0); CALCIUM 9.9 mg/dL (8.5-10.1); CO2 23 mmol/L (21-32); CREATININE 1.1 mg/dL (0.55-1.02); SGOT/AST 24 U/L (15-37); SGPT/ALT 31 U/L (12-78)
[2017-03-22] MEDS ORDERED: NITROGLYCERIN SUBLINGUAL 1/150 0.4 MG TAB SL ONE (10:45)
[2017-03-22] MEDS ORDERED: NITROGLYCERIN SUBLINGUAL 1/150 0.4 MG TAB ONE (10:45)
[2017-03-22 10:47] LABS: ALK PHOS 72 U/L (45-117); TOT PROT 9.1 g/dl (6.4-8.2); TROPONIN I 0.02 ng/ml (0.00-0.05)
[2017-03-22 10:56] LABS: GLUCOSE,RANDOM 332 mg/dL (74-106); URINE MARIJUANA THC POSITIVE ng/ml (CUTOFF=50)
[2017-03-22] MEDS ORDERED: HYDROmorphone HCL CARPU-JECT 1 MG/1 ML DISP.SYRIN IVPUSH ONE (11:15)
[2017-03-22] MEDS ORDERED: LABETALOL HCL 200 MG TABLET (FP) PO ONE (11:15)
--- NOTE | 2017-03-22 11:24 | CON.CARD ---
Cardiology Consult (text) - Consultation Consultation Note: Cardiology Consultation 36F with HTN, DM, CAD s/p AZ, prox LAD stent, distal LAD ISR s/p PTCA and rotational atherectomy 12/16/16 at [place], chronic THC use, cyclical vomiting presents to ER w/ several hours of SSCP and pressure which she states is similar to prior angina. Pain not relieved with SLNTG. Non-radiating, no SOB. + Nausea and vomiting. No PND or orthopnea. No edema. She is asking for Dilaudid because "it is the only thing that relieves my pain." PMH: as above. HTN, DM, CAD s/p AZ and PCI, chronic marjuana use. Cyclical vomiting with prior dx of presumed gastroparesis. ALL: Cephalexin MEDS: Reviewed in EMR. ASA 81mg daily, Brilinta 90mg BID, Labetalol 200mg BID. DM meds as listed in EMR. FH: Non-contributory SH: Smoke Marijuana daily. Denies tobacco or ETOH. No other drugs. Exam: Escorted back to bed by security from bathroom, pulled out her IV. No distress. Neck: No JVD, no bruits. CV: S1, 2. RRR. No murmurs Chest: CTA b/l Abd: soft, NT Ext: No edema Laboratory Tests 03/22/17 03/22/17 03/22/17 09:54 09:54 09:54 WBC 9.4 D Hgb 11.7 Hct 34.5 Plt Count 412 Sodium 134 L Potassium 4.1 Creatinine 1.1 H Random Glucose 332 H* D Creatine Kinase Troponin I Lipase 198 Urine HCG, Qual Opiates Screen Negative Methadone Screen Negative Barbiturate Screen Negative Phencyclidine Screen Negative Ur Amphetamines Screen Negative MDMA (Ecstasy) Screen Negative Benzodiazepines Screen Negative Cocaine Screen Negative U Marijuana (THC) Screen Positive 03/22/17 03/22/17 09:54 09:54 WBC Hgb Hct Plt Count Sodium Potassium Creatinine Random Glucose Creatine Kinase 336 H D Troponin I 0.02 Lipase Urine HCG, Qual Negative Opiates Screen Methadone Screen Barbiturate Screen Phencyclidine Screen Ur Amphetamines Screen MDMA (Ecstasy) Screen Benzodiazepines Screen Cocaine Screen U Marijuana (THC) Screen ECG: NSR, LAE. No acute ST changes. CATH: [place] 12/16/16 -RCA: Prox no obstruction, RPDA severe diffuse dz -LM: no obstruction LAD: prox, patent stent. Mid, 30-50% with bridging. Distal: 80-90% ISR s/p PTCA and atherectomy LCX: Prox, no obstx; LPL 60-70%. IMP: Known CAD s/p prox LAD PCI and distal LAD ISR with recent POBA and atherectomy DM HTN, hypertensive urgency REC: Tele observation JULIO with serial Cardiac Enzymes and ECGs ECHO Resume home meds: including Labetalol, Brilinta and ASA Will add Ranexa 500mg BID. Recent cath showing mostly distal dz, with no targets for CABG. Would maximize anti-anginal regimen before considering repeat angiography.
[2017-03-22] MEDS ORDERED: HYDROmorphone HCL CARPU-JECT 1 MG/1 ML DISP.SYRIN ONE ×2 (11:37→12:01)
[2017-03-22] MEDS ORDERED: LABETALOL HCL 100 MG TABLET (FP) ONE (11:38)
[2017-03-22] MEDS ORDERED: HYDROmorphone HCL CARPU-JECT 1 MG/1 ML DISP.SYRIN IVPB ONE (12:24)
[2017-03-22] MEDS ORDERED: MAG HYDROX/AL HYDROX/SIMETH 30 ML UNIT-DOSE CUP PO PRN (13:03)
[2017-03-22] MEDS ORDERED: ONDANSETRON *ODT* 4 MG TABLET SL PRN (13:03)
--- NOTE | 2017-03-22 13:09 | HP ---
Admitting History and Physical - Primary Care Physician PCP: Ashleigh Valencia - Admission Chief Complaint: I'm throwing up History of Present Illness: Ms Berry is a 36 year old female who comes in complaining of intractable nausea and vomiting and chest pain. She says that the nausea and vomiting began this morning. She says that it was clear as she has not eaten anything. There was no blood or coffee ground emesis. She says she also has chest pain. She says it is midsternal and associated with her throwing up. She says it is sharp in nature, 10/10, does not radiate, and is only relieved with dilaudid. She denies fevers, chills, sick contacts, lightheadedness, passing out, shortness of breath, diarrhea, constipation, difficulty or pain on urination, or swelling. History Source: Patient Limitations to Obtaining History: No Limitations - Past Medical History Cardiovascular: Yes: CAD, CHF, HTN, Hyperlipdemia, NM Pulmonary: Yes: Bronchitis Gastrointestinal: Yes: Other (diabetic gastroparesis) Renal/: Yes: Renal Inusuff ...LMP: 08/21/16 Psych: Yes: Anxiety, Panic Musculoskeletal: Yes: Other (rt shoulder pain) Endocrine: Yes: Diabetes Mellitus - Past Surgical History Past Surgical History: Yes: - Smoking History Smoking history: Never smoked Have you smoked in the past 12 months: No Aproximately how many cigarettes per day: 1 If you are a former smoker, when did you quit?: 2015 - Alcohol/Substance Use Hx Alcohol Use: No History of Substance Use: reports: Marijuana - Social History ADL: Independent History of Recent Travel: No Home Medications - Allergies Allergies/Adverse Reactions: Allergies Allergy/AdvReac Type Severity Reaction Status Date / Time cephalexin monohydrate Allergy Severe Hives Verified 03/22/17 08:22 [From Keflex] - Home Medications Home Medications: Ambulatory Orders Aspirin [Aspirin EC] 81 mg PO DAILY 11/13/15 Metformin HCl 500 mg PO BID 08/25/16 Ondansetron [Zofran *Odt*] 8 mg SL TID PRN #30 od.tablet 10/05/16 Atorvastatin Ca [Lipitor] 80 mg PO HS #30 tablet 10/09/16 Labetalol HCl [Normodyne -] 200 mg PO BID #60 tablet 10/09/16 Sitagliptin Phosphate [Januvia -] 25 mg PO DAILY@0700 #30 tab 10/09/16 Ticagrelor [Brilinta -] 90 mg PO BID tablet 10/09/16 Clonazepam [Klonopin] 1 mg PO BID 02/24/17 Mag Carb/Al Hydrox/Alginic AC [Gaviscon Liquid] 15 - 30 ml PO Q6H PRN #355 oz Metoclopramide HCl [Reglan] 10 mg PO TID #0 tablet 02/24/17 Metoclopramide HCl [Reglan] 10 mg PO TID #270 tablet 02/24/17 Pantoprazole Sodium 40 mg PO DAILY #0 tablet. 02/24/17 Pantoprazole Sodium 40 mg PO DAILY #90 tablet. 02/24/17 Family Disease History - Family Disease History Family Disease History: Diabetes: Mother (htn) Review of Systems Findings/Remarks: full review of systems obtained, as per HPI and otherwise negative Physical Examination Vital Signs: Vital Signs Temperature 98.2 F 03/22/17 08:15 Pulse Rate 99 H 03/22/17 12:10 Respiratory Rate 20 03/22/17 12:10 Blood Pressure 193/107 03/22/17 12:10 O2 Sat by Pulse Oximetry (%) 100 03/22/17 09:30 Constitutional: Yes: Well Nourished, No Distress, Other (agitated) Eyes: Yes: Conjunctiva Clear, EOM Intact, PERRL HENT: Yes: Atraumatic, Normocephalic Cardiovascular: Yes: Regular Rate and Rhythm. No: Gallop, Murmur, Rub Respiratory: Yes: Regular, CTA Bilaterally. No: Rales, Rhonchi, Wheezes Gastrointestinal: Yes: Normal Bowel Sounds, Soft. No: Distention, Tenderness Extremities: Yes: WNL Edema: No Labs: CBC, BMP 03/22/17 09:54 03/22/17 09:54 Imaging - Results Chest X-ray: Report Reviewed, Image Reviewed EKG: Image Reviewed Problem List - Problems (1) Chest pain Assessment/Plan: -appreciate cardiology assistance -note reviewed -will add ranexa -ECHO ordered -monitor on telemetry -cardiac enzymes x3 -concerning that patient says "only dilaudid" is sufficient -will place on oxycodone Code(s): R07.9 - CHEST PAIN, UNSPECIFIED (2) CHF (congestive heart failure) Assessment/Plan: -not in exacerbation -cardiology following Code(s): I50.9 - HEART FAILURE, UNSPECIFIED Qualifiers: Congestive heart failure type: diastolic Congestive heart failure chronicity: chronic Qualified Code(s): I50.32 - Chronic diastolic ( congestive) heart failure (3) Cannabis abuse Assessment/Plan: -case d/w patient about cessation as can exacerbate gastroparesis Code(s): F12.10 - CANNABIS ABUSE, UNCOMPLICATED (4) Coronary artery disease Assessment/Plan: -continue home regimen -cardiology following Code(s): I25.10 - ATHSCL HEART DISEASE OF [place] CORONARY ARTERY W/O ANG PCTRS Qualifiers: Coronary Disease-Associated Artery/Lesion type: [place] artery [place] vs. transplanted heart: [place] heart Associated angina: with unspecified angina Qualified Code(s): I25.119 - Atherosclerotic heart disease of [place] coronary artery with unspecified angina pectoris (5) Diabetes mellitus Assessment/Plan: -elevated -will continue home regimen -diabetic clear liquids -FSBS and SSI Code(s): E11.9 - TYPE 2 DIABETES MELLITUS WITHOUT COMPLICATIONS Qualifiers: Diabetes mellitus type: type 2 Diabetes mellitus complication status: with kidney complications Diabetes mellitus complication detail: with chronic kidney disease Chronic kidney disease stage: stage 3 (moderate) Qualified Code(s): E11.22 - Type 2 diabetes mellitus with diabetic chronic kidney disease; N18.1 - Chronic kidney disease, stage 1; Z79.4 - watermaster ( current) use of insulin (6) Diabetic gastroparesis Assessment/Plan: -in exacerbation -? secondary to cannabis use -scheduled IV reglan -minimize narcotics Code(s): E11.43 - TYPE 2 DIABETES W DIABETIC AUTONOMIC (POLY)NEUROPATHY K31.84 - GASTROPARESIS (7) Hyperlipidemia Assessment/Plan: -continue statin Code(s): E78.5 - HYPERLIPIDEMIA, UNSPECIFIED Qualifiers: Hyperlipidemia type: unspecified Qualified Code(s): E78.5 - Hyperlipidemia, unspecified (8) Hypertension Assessment/Plan: -continue home regimen -prn IV metoprolol Code(s): I10 - ESSENTIAL (PRIMARY) HYPERTENSION Qualifiers: Hypertension type: essential hypertension Qualified Code(s): I10 - Essential (primary) hypertension
[2017-03-22] MEDS: ASPIRIN COATED 81 MG TABLET.EC PO SCH (13:22)
[2017-03-22] MEDS ORDERED: ONDANSETRON 8 MG TABLET (FP) PO ONE (14:46)
[2017-03-22] MEDS: METOCLOPRAMIDE HCL INJECTION 10 MG/2 ML VIAL IVPB SCH ×2 (15:51→21:15)
[2017-03-22] MEDS: oxyCODONE HCL 5 MG TABLET PO PRN ×2 (15:52→21:37)
[2017-03-22] MEDS ORDERED: METOPROLOL TARTRATE 5 MG/5 ML VIAL IVPB PRN (16:17)
[2017-03-22] MEDS: metFORMIN HCL 500 MG TABLET (FP) PO SCH (17:14)
[2017-03-22] MEDS: INSULIN SLIDING SCALE (NOVOLOG) 1 VIAL SQ SCH ×2 (17:15→21:33)
[2017-03-22] MEDS ORDERED: INSULIN (NOVOLOG) ASPART 100 UNITS/ML 10ML VIAL ONE (17:22)
[2017-03-22 19:24] LABS: TROPONIN I 3.75 ng/ml (0.00-0.05)
[2017-03-22] MEDS ORDERED: HEPARIN NA (PORCINE) 5,000 UNITS/ML 1ML VIAL IVPUSH PRN ×2 (20:19)
[2017-03-22] MEDS ORDERED: ASPIRIN 81 MG CHEWABLE TABLETS PO ONE (20:30)
[2017-03-22] MEDS: TICAGRELOR 90 MG TABLET PO SCH (21:32)
[2017-03-22] MEDS: RANOLAZINE E.R. 500 MG TABLET (FP) PO SCH (21:32)
[2017-03-22] MEDS: LABETALOL HCL 200 MG TABLET (FP) PO SCH (21:33)
[2017-03-22] MEDS: HEPARIN INFUSION - 500 ML IVPB SCH (21:52)
[2017-03-22] MEDS ORDERED: ATORVASTATIN CA 80 MG TABLET (FP) PO SCH (22:00)
[2017-03-22] MEDS ORDERED: TICAGRELOR 90 MG TABLET PO SCH (22:00)
[2017-03-23 00:11] LABS: TROPONIN I 8.4 ng/ml (0.00-0.05)
[2017-03-23] MEDS: METOCLOPRAMIDE HCL INJECTION 10 MG/2 ML VIAL IVPB SCH ×2 (06:14→15:35)
[2017-03-23] MEDS: metFORMIN HCL 500 MG TABLET (FP) PO SCH (06:14)
[2017-03-23] MEDS: INSULIN SLIDING SCALE (NOVOLOG) 1 VIAL SQ SCH ×2 (06:15→12:24)
[2017-03-23] MEDS ORDERED: sitaGLIPtin PHOSPHATE 25 MG TABLET (FP) PO SCH (07:00)
[2017-03-23 07:27] LABS: BASOPHIL 0.4 % (0-2.0); EOSINOPHIL 0.1 % (0-4.5); MCH 28.3 pg (25.7-33.7); MCHC 34.4 g/dl (32.0-36.0); MEAN CELL VOLUME 82.3 fl (80-96); MEAN PLT VOLUME 6.9 fl (7.5-11.1); PLATELET COUNT 373 K/MM3 (134-434); RDW 16.1 % (11.6-15.6); WHITE BLOOD COUNT 8.9 K/mm3 (4.0-10.0)
[2017-03-23 08:12] LABS: ANION GAP 11 (8-16); CALCIUM 8.8 mg/dL (8.5-10.1); CO2 26 mmol/L (21-32); CREATININE 1.6 mg/dL (0.55-1.02); GLUCOSE,RANDOM 163 mg/dL (74-106); MAGNESIUM 2.2 mg/dL (1.8-2.4); PHOSPHOROUS 3.6 mg/dL (2.5-4.9)
--- NOTE | 2017-03-23 08:26 | PN ---
Progress Note, Physician Chief Complaint: pain subsided TELE: NSR w/ 8 beats NSVT Echo: Normal LV function, possible torn chordae, no sig MR - Current Medication List Current Medications: Active Medications Al Hydroxide/Mg Hydroxide (Mylanta Oral Suspension -) 30 ml PO Q6H PRN PRN Reason: DYSPEPSIA Aspirin (Ecotrin -) 81 mg PO DAILY [facility] Last Admin: 03/22/17 13:22 Dose: 81 mg Atorvastatin Calcium (Lipitor -) 80 mg PO HS [facility] Last Admin: 03/22/17 21:32 Dose: 80 mg Heparin Sodium (Porcine) (Heparin -) 5,000 unit IVPUSH PRN PRN Heparin Sodium (Porcine) (Heparin -) 1,000 unit IVPUSH PRN PRN Heparin Sodium/Dextrose (Heparin Infusion -) 500 mls @ 20 mls/hr IVPB TITR NAKIA ; 1,000 UNITS/HR PRN Reason: Protocol Last Admin: 03/22/17 21:52 Dose: 20 mls/hr Insulin Aspart (Novolog Vial Sliding Scale -) 1 vial SQ ACHS [facility] PRN Reason: Protocol Last Admin: 03/23/17 06:15 Dose: Not Given Labetalol HCl (Normodyne -) 200 mg PO BID [facility] Last Admin: 03/22/17 21:33 Dose: 200 mg Metformin HCl (Glucophage -) 500 mg PO BIDAC [facility] Last Admin: 03/23/17 06:14 Dose: 500 mg Metoclopramide HCl (Reglan Injection -) 10 mg IVPB TID [facility] Last Admin: 03/23/17 06:14 Dose: 10 mg Metoprolol Tartrate (Lopressor Injection -) 5 mg IVPB Q4H PRN PRN Reason: HYPERTENSION Ondansetron HCl (Zofran Odt -) 8 mg SL TID PRN PRN Reason: NAUSEA Last Admin: 03/22/17 14:45 Dose: 8 mg Oxycodone HCl (Roxicodone -) 5 mg PO Q6H PRN PRN Reason: PAIN Last Admin: 03/22/17 21:37 Dose: 5 mg Pantoprazole Sodium (Protonix -) 40 mg PO DAILY [facility] Ranolazine (Ranexa -) 500 mg PO BID [facility] Last Admin: 03/22/17 21:32 Dose: 500 mg Sitagliptin Phosphate (Januvia -) 25 mg PO DAILY@0700 [facility] Last Admin: 03/23/17 06:15 Dose: 25 mg Ticagrelor (Brilinta -) 90 mg PO BID [facility] Last Admin: 03/22/17 21:32 Dose: 90 mg - Objective Vital Signs: Vital Signs Temperature 98.8 F 03/23/17 06:00 Pulse Rate 78 03/23/17 06:00 Respiratory Rate 18 03/23/17 06:00 Blood Pressure 106/65 03/23/17 06:00 O2 Sat by Pulse Oximetry (%) 100 03/23/17 06:00 Constitutional: Yes: Calm Eyes: Yes: Conjunctiva Clear Cardiovascular: Yes: Regular Rate and Rhythm Respiratory: Yes: CTA Bilaterally Gastrointestinal: Yes: Soft Edema: No Neurological: Yes: Alert ...Motor Strength: WNL Labs: CBC, BMP 03/23/17 05:35 03/23/17 05:35 Laboratory Tests 03/22/17 03/22/17 03/22/17 09:54 09:54 17:45 WBC Hgb Plt Count Sodium Potassium Creatinine Creatine Kinase 495 H D Creatine Kinase Index CK-MB (CK-2) 28.529 H Troponin I 3.75 H* Urine HCG, Qual Negative Opiates Screen Negative Methadone Screen Negative Barbiturate Screen Negative Phencyclidine Screen Negative Ur Amphetamines Screen Negative MDMA (Ecstasy) Screen Negative Benzodiazepines Screen Negative Cocaine Screen Negative U Marijuana (THC) Screen Positive 03/22/17 03/23/17 03/23/17 21:00 05:35 05:35 WBC 8.9 Hgb 10.7 Plt Count 373 Sodium 133 L Potassium 3.6 Creatinine 1.6 H D Creatine Kinase 687 H D Creatine Kinase Index 6.9 H* CK-MB (CK-2) 47.231 H Troponin I 8.40 H* Urine HCG, Qual Opiates Screen Methadone Screen Barbiturate Screen Phencyclidine Screen Ur Amphetamines Screen MDMA (Ecstasy) Screen Benzodiazepines Screen Cocaine Screen U Marijuana (THC) Screen - ....Imaging EKG: Image Reviewed Assessment/Plan IMP: Known CAD s/p prox LAD PCI and distal LAD ISR with recent POBA and atherectomy DM HTN, hypertensive urgency Recurrent NSTEMI REC: To continue ASA, Brilinta, Heparin gtts and beta cynthia. Lipitor 80mg. LV function normal. Mid to distal LAD suspected to be the problem- have discussed with interventional cardiology (Dr. Ramos) at [place]. Likely transfer for cath and possible brachytherapy. Tentative plan for transfer tomorrow. Cycle enzymes today. ECG.
[2017-03-23] MEDS: RANOLAZINE E.R. 500 MG TABLET (FP) PO SCH (09:36)
[2017-03-23] MEDS: ASPIRIN COATED 81 MG TABLET.EC PO SCH (09:36)
[2017-03-23] MEDS: LABETALOL HCL 200 MG TABLET (FP) PO SCH (09:36)
[2017-03-23] MEDS: HEPARIN INFUSION - 500 ML IVPB SCH (09:37)
[2017-03-23] MEDS ORDERED: PANTOPRAZOLE 40 MG TABLET (FP) PO SCH (10:00)
[2017-03-23] MEDS ORDERED: SODIUM CHLORIDE 1,000 ML IV STA (10:16)
[2017-03-23] MEDS ORDERED: morphine CARPU-JECT 2 MG/1 ML DISP.SYRIN SQ PRN (10:32)
[2017-03-23] MEDS ORDERED: ACETYLCYSTEINE 20% 200MG/ML 30 ML VIAL *FOR ORAL / INH USE ONLY PO SCH ×2 (10:45→12:30)
[2017-03-23] MEDS ORDERED: SODIUM CHLORIDE 1,000 ML IV SCH (11:00)
--- NOTE | 2017-03-23 12:02 | DS ---
Physical Examination Vital Signs: Vital Signs Temperature 98 F 03/23/17 09:41 Pulse Rate 83 03/23/17 09:41 Respiratory Rate 20 03/23/17 09:41 Blood Pressure 122/78 03/23/17 09:41 O2 Sat by Pulse Oximetry (%) 100 03/23/17 06:00 Constitutional: Yes: Well Nourished, No Distress, Calm Cardiovascular: Yes: Regular Rate and Rhythm. No: Gallop, Murmur, Rub Respiratory: Yes: Regular, CTA Bilaterally. No: Rales, Rhonchi, Wheezes Gastrointestinal: Yes: Normal Bowel Sounds, Soft. No: Distention, Tenderness Extremities: Yes: WNL Edema: No Discharge Summary Reason For Visit: GASTROPARESIS,CHEST PAIN Current Active Problems Chest pain (Acute) Cyclic vomiting syndrome (Acute) Dehydration (Acute) Hospital Course: Ms Berry is a pleasant 36 year old female who came in with chest pain and cyclical vomiting and was found to have an NSTEMI. She was originally admitted to telemetry under observation. She was started on IV reglan and her vomiting stopped. However her second set of enzymes were positive. She was diagnosed with an NSTEMI. She was followed by cardiology on admission and when her troponin became positive, she was placed on heparin. She is now planned to be transferred to [facility] for further care. Her metformin is being held for both possibility of contrast and LYNDSAY. She is being hydrated for elevation in creatinine. She is stable for transfer to [facility]. 33 minutes spent in preparation of this transfer Condition: Stable - Instructions Diet, Activity, Other Instructions: patient to be transferred to [facility] for further evaluation and care Referrals: Ashleigh Valencia MD [Non Staff, Medical] - Juan Manuel Ng MD [Staff Physician] - Disposition: TRANSFER ACUTE CARE/OTHER HOSP - Home Medications Comprehensive Discharge Medication List: Ambulatory Orders Aspirin [Aspirin EC] 81 mg PO DAILY 11/13/15 Metformin HCl 500 mg PO BID 08/25/16 Ondansetron [Zofran *Odt*] 8 mg SL TID PRN #30 od.tablet 10/05/16 Atorvastatin Ca [Lipitor] 80 mg PO HS #30 tablet 10/09/16 Labetalol HCl [Normodyne -] 200 mg PO BID #60 tablet 10/09/16 Sitagliptin Phosphate [Januvia -] 25 mg PO DAILY@0700 #30 tab 10/09/16 Ticagrelor [Brilinta -] 90 mg PO BID tablet 10/09/16 Clonazepam [Klonopin] 1 mg PO BID 02/24/17 Mag Carb/Al Hydrox/Alginic AC [Gaviscon Liquid] 15 - 30 ml PO Q6H PRN #355 oz Metoclopramide HCl [Reglan] 10 mg PO TID #0 tablet 02/24/17 Metoclopramide HCl [Reglan] 10 mg PO TID #270 tablet 02/24/17 Pantoprazole Sodium 40 mg PO DAILY #0 tablet. 02/24/17 Pantoprazole Sodium 40 mg PO DAILY #90 tablet. 02/24/17 Heparin - 1,000 unit IVPUSH PRN PRN #0 vial 03/23/17 Heparin - 5,000 unit IVPUSH PRN PRN #0 vial 03/23/17 Heparin Infusion - 500 ml IVPB TITR bag 03/23/17 Metoprolol Tartrate Injection [Lopressor Injection -] 5 mg IVPB Q4H PRN #1 vial 03/23/17 Morphine Injection - [Morphine Injection 2 mg/1 mL -] 2 mg SQ Q4H PRN #0 syringe MDD 12mg 03/23/17 Ranolazine [Ranexa -] 500 mg PO BID tab 03/23/17 Sodium Chloride [Normal Saline -] 1,000 ml IV ASDIR bag 03/23/17
[2017-03-23] MEDS: TICAGRELOR 90 MG TABLET PO SCH (12:04)
[2017-03-23 14:09] VITALS: BP 123/78; PULSE 72; TEMP 98.1
--- NOTE | 2017-03-29 12:17 | EKG ---
Test Reason : Blood Pressure : / mmHG Vent. Rate : 090 BPM Atrial Rate : 090 BPM P-R Int : 158 ms QRS Dur : 082 ms QT Int : 372 ms P-R-T Axes : 048 023 052 degrees QTc Int : 455 ms NORMAL SINUS RHYTHM POSSIBLE LEFT ATRIAL ENLARGEMENT BORDERLINE ECG WHEN COMPARED WITH ECG OF 22-JAN-2017 14:43, NO SIGNIFICANT CHANGE WAS FOUND Confirmed by ANDREI PERALTA MD ([id number]) on 03/29/2017 12:17:11 PM Referred By: Confirmed By:ANDREI PERALTA MD
== END 2017-03-23 16:47 | disposition short-term general hospital (02) | DRG 281 ==
LOC: JER 08:14 → JERBED 12:24 → J4W 15:05 → OBSVTOIN 03-23 10:33
PROVIDERS: ADMIT Internal Medicine; ATTEND Internal Medicine
DX: I21.4 Non-ST elevation (NSTEMI) myocardial infarction (principal); I47.1 Supraventricular tachycardia; R07.9 Chest pain, unspecified; G43.A0 Cyclical vomiting, in migraine, not intractable; E86.0 Dehydration; I25.119 Atherosclerotic heart disease of native coronary artery with unspecified angina pectoris; Z98.61 Coronary angioplasty status; E11.43 Type 2 diabetes mellitus with diabetic autonomic (poly)neuropathy; K31.84 Gastroparesis; I10 Essential (primary) hypertension; E78.5 Hyperlipidemia, unspecified
CPT/HCPCS: 36415; 71020-TC; 80048; 80053; 80307; 82550; 82553; 83690; 83735; 84100; 84484; 84703; 85025; 85730; 93005; 93010; 93306-TC; 99285-25; G0378; J1644

== ENCOUNTER 2017-04-28 06:06 | Emergency (ER) | payer BC ==
[2017-04-28 06:39] VITALS: TEMP 98; BMI 27.1
[2017-04-28] MEDS ORDERED: ONDANSETRON 4 MG/2 ML VIAL IVPUSH ONE (06:43)
--- NOTE | 2017-04-28 06:50 | PDOC ---
History of Present Illness - General Chief Complaint: Nausea/Vomiting Stated Complaint: VOMITING Time Seen by Provider: 04/28/17 06:18 - History of Present Illness Initial Comments: 04/28/17 06:45 This is a 36 year old woman with PMH HTN, DM, CAD (stent x8 with the last placed in 2013 LAD, last cath in March 2017 with balloon angiography), CHF, recurrent gastroparesis who presents to the ED with chest pain, nausea and vomiting. Patient notes that she developed chest pain after initiation of vomiting, non-bloody, non-bilious. She states she woke up on 04/26 with "extreme nausea and vomiting" which was followed by 06/27 sharp retrosternal chest pain. She denies any fever, chills, SOB, dizziness, headaches, abdominal bloating or change in exercise tolerance. She denies orthopnea or PND. 04/28/17 06:51 Past History - Past Medical History Allergies/Adverse Reactions: Allergies Allergy/AdvReac Type Severity Reaction Status Date / Time cephalexin monohydrate Allergy Severe Hives Verified 04/28/17 06:41 [facility] Home Medications: Ambulatory Orders Aspirin [Aspirin EC] 81 mg PO DAILY 11/13/15 Metformin HCl 500 mg PO BID 08/25/16 Ondansetron [Zofran *Odt*] 8 mg SL TID PRN #30 od.tablet 10/05/16 Atorvastatin Ca [Lipitor] 80 mg PO HS #30 tablet 10/09/16 Labetalol HCl [Normodyne -] 200 mg PO BID #60 tablet 10/09/16 Sitagliptin Phosphate [Januvia -] 25 mg PO DAILY@0700 #30 tab 10/09/16 Ticagrelor [Brilinta -] 90 mg PO BID tablet 10/09/16 Mag Carb/Al Hydrox/Alginic AC [Gaviscon Liquid] 15 - 30 ml PO Q6H PRN #355 oz Metoclopramide HCl [Reglan] 10 mg PO TID #270 tablet 02/24/17 Pantoprazole Sodium 40 mg PO DAILY #90 tablet. 02/24/17 Ranolazine [Ranexa -] 500 mg PO BID tab 03/23/17 Famotidine [Pepcid] 20 mg PO DAILY #14 tablet 04/28/17 Metoclopramide HCl [Reglan] 10 mg GT Q8H #15 tablet 04/28/17 Anemia: No Asthma: No Cancer: (cervical ca) Cardiac Disorders: Yes ([place] X 6) CVA: No COPD: No CHF: Yes Dementia: No Diabetes: Yes GI Disorders: Yes (GASTROPARESIS) Disorders: No HTN: Yes Hypercholesterolemia: Yes Liver Disease: No Psychiatric Problems: Yes (anxiety) Suicide Attempt (Hx): No Seizures: No Thyroid Disease: No - Surgical History Abdominal Surgery: No Appendectomy: No Cardiac Surgery: Yes (4 STENTS) Cholecystectomy: No Lung Surgery: No Neurologic Surgery: No Orthopedic Surgery: Yes (ROTATOR CUFF REPAIR) - Reproductive History (#): 5 Para: 0 Cervical CA: Yes Dysfunctional Uterine Bleeding: Yes Ectopic : Yes Endometrial CA: Yes Therapeutic (s) & number: Yes (1) Spontaneous : 4 - Immunization History Immunization Up to Date: Yes - Psycho/Social/Smoking Cessation Hx Anxiety: No Suicidal Ideation: No Smoking Status: Yes (QUIT 3 MONTHS AGO) Smoking History: Never smoked Have you smoked in the past 12 months: No Number of Cigarettes Smoked Daily: 1 If you are a former smoker, when did you quit?: 2015 Information on smoking cessation initiated: No 'Breaking Loose' booklet given: 08/25/16 Hx Alcohol Use: No Drug/Substance Use Hx: No Substance Use Type: Marijuana Hx Substance Use Treatment: No Review of Systems - Review of Systems Able to Perform ROS?: Yes Is the patient limited [place]ian proficient: No Constitutional: No: Symptoms Reported HEENTM: No: Symptoms Reported Cardiac (ROS): Yes: See HPI ABD/GI: Yes: See HPI : No: Symptoms Reported Musculoskeletal: No: Symptoms Reported Integumentary: No: Symptoms Reported Neurological: No: Symptoms reported *Physical Exam - Vital Signs Last Vital Signs Temp Pulse Resp BP Pulse Ox 98 F 90 15 151/88 100 04/28/17 06:34 04/28/17 06:34 04/28/17 06:34 04/28/17 06:34 04/28/17 06:34 - Physical Exam General Appearance: Yes: Appropriately Dressed. No: Apparent Distress HEENT: positive: EOMI, SESAR, Normal ENT Inspection Neck: positive: Trachea midline, Supple Respiratory/Chest: positive: Lungs Clear, Normal Breath Sounds. negative: Respiratory Distress, Accessory Muscle Use Cardiovascular: positive: Regular Rhythm, Regular Rate, S1, S2, Edema (trace dependant). negative: JVD, Murmur Musculoskeletal: positive: Normal Inspection. 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 NML intact, Fully Oriented, Alert, Normal Mood/ Affect, Normal Response, Motor Strength 5/5 Heart Score/ECG Review - ECG Intrepretation Rhythm: Regular Rhythm (occasional) - ECG Impressions Normal ECG: Yes ED Treatment Course - LABORATORY CBC & Chemistry Diagram: 04/28/17 06:50 04/28/17 06:50 - RADIOLOGY Radiology Studies Ordered: Category Date Time Status CHEST PA & LAT [RAD] Stat Radiology 04/28/17 06:43 Ordered Medical Decision Making - Medical Decision Making 04/28/17 06:50 A/P: This is a 36 year old woman with PMH HTN, DM, CAD (stent x4 with the last placed in 2013 LAD, last cath in March 2017 with balloon angiography), CHF, recurrent gastroparesis who presents to the ED with chest pain, nausea and vomiting. Patient notes that she developed chest pain after initiation of vomiting, non-bloody, non-bilious. She states she woke up on 04/26 with "extreme nausea and vomiting" which was followed by 10/10 sharp retrosternal chest pain. She denies any fever, chills, SOB, dizziness, headaches, abdominal bloating or change in exercise tolerance. She denies orthopnea or PND. DDx: Gastroparesis vs ACS VS SBO - stat EKG - CBC, CMP, Trop, CPK, BNP, lipase - UA, upreg - CXR - NS 500cc bolus - Zofran 4mg - Ativan 1mg IVP *DC/Admit/Observation/Transfer Diagnosis at time of Disposition: Abdominal pain Qualifiers: Abdominal location: generalized Qualified Code(s): R10.84 - Generalized abdominal pain - Discharge Dispostion Disposition: HOME Condition at time of disposition: Improved - Prescriptions Prescriptions: Famotidine [Pepcid] 20 mg PO DAILY #14 tablet Metoclopramide HCl [Reglan] 10 mg GT Q8H #15 tablet - Referrals Referrals: Ashleigh Valencia MD [Primary Care Provider] - - Patient Instructions Additional Instructions: Please take medication as needed and follow up with your estimating engineer
--- NOTE | 2017-04-28 06:51 | PDOC ---
*Physical Exam - Vital Signs Last Vital Signs Temp Pulse Resp BP Pulse Ox 98 F 90 15 151/88 100 04/28/17 06:34 04/28/17 06:34 04/28/17 06:34 04/28/17 06:34 04/28/17 06:34 ED Treatment Course - LABORATORY CBC & Chemistry Diagram: 04/28/17 06:50 04/28/17 06:50 Medical Decision Making - Medical Decision Making 04/28/17 06:50 agree with care from BEBETO Che *DC/Admit/Observation/Transfer Diagnosis at time of Disposition: Abdominal pain - Discharge Dispostion Disposition: HOME Condition at time of disposition: Improved - Prescriptions Prescriptions: Famotidine [Pepcid] 20 mg PO DAILY #14 tablet Metoclopramide HCl [Reglan] 10 mg GT Q8H #15 tablet - Referrals Referrals: Ashleigh Valencia MD [Primary Care Provider] - - Patient Instructions Additional Instructions: Please take medication as needed and 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
[2017-04-28] MEDS ORDERED: SODIUM CHLORIDE 500 ML IV STA (06:57)
[2017-04-28] MEDS ORDERED: ONDANSETRON 4 MG/2 ML VIAL ONE (07:06)
[2017-04-28] MEDS ORDERED: LORazepam 2 MG/ML SDV VIAL ONE (07:06)
[2017-04-28 07:08] LABS: URINE APPEARANCE SLCLOUDY; URINE BILIRUBIN NEGATIVE (NEGATIVE); URINE BLOOD 1+ (NEGATIVE); URINE COLOR LTYELLOW; URINE GLUCOSE (UA) 2+ (NEGATIVE); URINE KETONE 1+ (NEGATIVE); URINE LEUK ESTERASE NEGATIVE (NEGATIVE); URINE NITRITE NEGATIVE (NEGATIVE); URINE PROTEIN NEGATIVE (NEGATIVE); URINE UROBILINOGEN NEGATIVE mg/dL (0.2-1.0)
[2017-04-28 07:16] LABS: BASOPHIL 0.7 % (0-2.0); EOSINOPHIL 0.7 % (0-4.5); MCH 26.4 pg (25.7-33.7); MEAN CELL VOLUME 80.1 fl (80-96); MEAN PLT VOLUME 7.1 fl (7.5-11.1); NEUTROPHILS 72.2 % (42.8-82.8); PLATELET COUNT 422 K/MM3 (134-434); RDW 18.3 % (11.6-15.6); WHITE BLOOD COUNT 9.5 K/mm3 (4.0-10.0)
[2017-04-28 07:19] LABS: URINE HYALINE CAST 1 /lpf; URINE MUCUS RARE; URINE RBC 2 /hpf (0-3); URINE WBC 1 /hpf (3-5)
[2017-04-28 07:33] LABS: ALBUMIN 4.6 g/dl (3.4-5.0); ANION GAP 10 (8-16); BILIRUBIN,TOTAL 0.7 mg/dL (0.2-1.0); CALCIUM 9.1 mg/dL (8.5-10.1); CO2 25 mmol/L (21-32); CREATININE 1.1 mg/dL (0.55-1.02); GLUCOSE,RANDOM 247 mg/dL (74-106); SGOT/AST 75 U/L (15-37); SGPT/ALT 60 U/L (12-78); TOT PROT 8.8 g/dl (6.4-8.2)
[2017-04-28] MEDS ORDERED: MAG HYDROX/AL HYDROX/SIMETH 30 ML UNIT-DOSE CUP PO ONE (07:35)
[2017-04-28] MEDS ORDERED: FAMOTIDINE 20 MG/50 ML IVPB 50 ML IVPB ONE ×2 (07:35→07:38)
[2017-04-28] MEDS ORDERED: METOCLOPRAMIDE HCL INJECTION 10 MG/2 ML VIAL IVPB ONE (07:35)
[2017-04-28] MEDS ORDERED: MAG HYDROX/AL HYDROX/SIMETH 30 ML UNIT-DOSE CUP ONE (07:38)
[2017-04-28] MEDS ORDERED: METOCLOPRAMIDE HCL INJECTION 10 MG/2 ML VIAL ONE (07:38)
[2017-04-28 07:44] LABS: ALK PHOS 68 U/L (45-117); TROPONIN I 0.02 ng/ml (0.00-0.05)
[2017-04-28 07:48] LABS: CPK 2226 IU/L (26-192)
--- NOTE | 2017-04-28 07:52 | PDOC ---
*Physical Exam - Vital Signs Last Vital Signs Temp Pulse Resp BP Pulse Ox 98 F 90 15 151/88 100 04/28/17 06:34 04/28/17 06:34 04/28/17 06:34 04/28/17 06:34 04/28/17 06:34 - Physical Exam General Appearance: Yes: Appropriately Dressed, Mild Distress HEENT: positive: Normal Voice Neck: positive: Supple Respiratory/Chest: positive: Lungs Clear, Normal Breath Sounds. negative: Respiratory Distress Cardiovascular: positive: Regular Rate, S1, S2 Gastrointestinal/Abdominal: positive: Soft. negative: Tender Integumentary: positive: Dry, Warm Neurologic: positive: Fully Oriented, Alert, Normal Mood/Affect ED Treatment Course - LABORATORY CBC & Chemistry Diagram: 04/28/17 06:50 04/28/17 06:50 - ADDITIONAL ORDERS Additional order review: Laboratory Results 04/28/17 04/28/17 06:50 06:50 Sodium 129 L Potassium 4.1 Chloride 94 L Carbon Dioxide 25 Anion Gap 10 BUN 20 H Creatinine 1.1 H D Creat Clearance w eGFR 55.30 Random Glucose 247 H D Calcium 9.1 Total Bilirubin 0.7 D AST 75 H D ALT 60 D Alkaline Phosphatase 68 Creatine Kinase 2226 H Troponin I 0.02 B-Natriuretic Peptide 360.03 H Total Protein 8.8 H Albumin 4.6 Lipase 196 Urine Color Ltyellow Urine Appearance Slcloudy Urine pH 5.0 Urine Protein Negative Urine Glucose (UA) 2+ H Urine Ketones 1+ H Urine Blood 1+ H Urine Nitrite Negative Urine Bilirubin Negative Urine Urobilinogen Negative Ur Leukocyte Esterase Negative Urine RBC 2 Urine WBC 1 Ur Epithelial Cells Few Hyaline Casts 1 Urine Mucus Rare Urine HCG, Qual Negative 04/28/17 06:50 RBC 4.50 MCV 80.1 MCHC 33.0 RDW 18.3 H D MPV 7.1 L Neutrophils % 72.2 Lymphocytes % 14.9 Monocytes % 11.5 H Eosinophils % 0.7 D Basophils % 0.7 - Medications Given in the ED: ED Medications Discontinued Medications Generic Name Dose Route Start Last Admin Trade Name Freq PRN Reason Stop Dose Admin Al Hydroxide/Mg Hydroxide 30 ml 04/28/17 07:35 04/28/17 07:43 Mylanta Oral Suspension - PO 04/28/17 07:36 30 ml ONCE ONE Administration Lorazepam 1 mg 04/28/17 06:43 04/28/17 07:03 Ativan Injection - IVPUSH 04/28/17 06:44 1 mg ONCE ONE Administration Metoclopramide HCl 10 mg 04/28/17 07:35 04/28/17 07:43 Reglan Injection - IVPB 04/28/17 07:36 10 mg ONCE ONE Administration Ondansetron HCl 4 mg 04/28/17 06:43 04/28/17 07:03 Zofran Injection IVPUSH 04/28/17 06:44 4 mg ONCE ONE Administration Medical Decision Making - Medical Decision Making 04/28/17 07:15 Patient signed out to me at 7 AM Patient is a 36-year-old female with history of hypertension, diabetes, CAD with multiple MIs and stents, CHF, recurrent gastroparesis. Follows up with Dr. Hung of GI here with multiple episodes of nausea, vomiting and at some point developed epigastric pain. Patient states symptoms similar to her gastroparesis. Also complaining of some loose bowel movements. No hematochezia , melena, fever or chills. As per prior team, patient given fluids, Zofran and Ativan with labs pending 04/28/17 07:52 On reassessment, patient continues to complain of nausea. Will continue to manage symptoms and reassess. Of note, lab remarkable for NA of 129. 04/28/17 07:54 04/28/17 10:15 Pt reports improvement after morphine and states she feels fine going home. pt able to wayne po in ED. Pt informs me that she has an appointment with her escrow manager in May. Patient told to call M.D. to make sooner appointment as needed. Reasons to return d/w pt 04/28/17 10:22 *DC/Admit/Observation/Transfer Diagnosis at time of Disposition: Abdominal pain Qualifiers: Abdominal location: generalized Qualified Code(s): R10.84 - Generalized abdominal pain - Discharge Dispostion Disposition: HOME Condition at time of disposition: Improved - Prescriptions Prescriptions: Famotidine [Pepcid] 20 mg PO DAILY #14 tablet Metoclopramide HCl [Reglan] 10 mg GT Q8H #15 tablet - Patient Instructions Additional Instructions: Please take medication as needed and follow up with your escrow manager
[2017-04-28] MEDS ORDERED: morphine CARPU-JECT 4 MG/1 ML DISP.SYRIN IVPUSH ONE (08:36)
[2017-04-28] MEDS ORDERED: morphine CARPU-JECT 4 MG/1 ML DISP.SYRIN ONE (08:38)
[2017-04-28 10:44] VITALS: BP 139/85; PULSE 82
--- NOTE | 2017-05-06 18:44 | EKG ---
Test Reason : Blood Pressure : / mmHG Vent. Rate : 083 BPM Atrial Rate : 083 BPM P-R Int : 154 ms QRS Dur : 084 ms QT Int : 394 ms P-R-T Axes : 058 030 018 degrees QTc Int : 462 ms POOR DATA QUALITY, INTERPRETATION MAY BE ADVERSELY AFFECTED SINUS RHYTHM WITH OCCASIONAL PREMATURE VENTRICULAR COMPLEXES POSSIBLE LEFT ATRIAL ENLARGEMENT BORDERLINE ECG WHEN COMPARED WITH ECG OF 22-MAR-2017 08:27, PREMATURE VENTRICULAR COMPLEXES ARE NOW PRESENT Confirmed by DANNIELLE MARSH MD ([id number]) on 05/06/2017 6:43:46 PM Referred By: Confirmed By:DANNIELLE MARSH MD
== END 2017-04-28 10:30 | disposition home or self-care (01) ==
LOC: JER 06:06
PROC: 3E033NZ Introduction of Analgesics, Hypnotics, Sedatives into Peripheral Vein, Percutaneous Approach (ICD-10-PCS; principal; 2017-04-28)
PROC: 3E033GC Introduction of Other Therapeutic Substance into Peripheral Vein, Percutaneous Approach (ICD-10-PCS; 2017-04-28)
PROC: 3E0337Z Introduction of Electrolytic and Water Balance Substance into Peripheral Vein, Percutaneous Approach (ICD-10-PCS; 2017-04-28)
DX: R10.84 Generalized abdominal pain (principal); I10 Essential (primary) hypertension; I25.10 Atherosclerotic heart disease of native coronary artery without angina pectoris; I50.9 Heart failure, unspecified; I25.2 Old myocardial infarction; Z95.5 Presence of coronary angioplasty implant and graft; E11.9 Type 2 diabetes mellitus without complications; Z88.1 Allergy status to other antibiotic agents; Z79.82 Long term (current) use of aspirin; Z79.84 Long term (current) use of oral hypoglycemic drugs; Z85.41 Personal history of malignant neoplasm of cervix uteri; F41.9 Anxiety disorder, unspecified; Z87.19 Personal history of other diseases of the digestive system
CPT/HCPCS: 36415; 71020-TC; 80053; 81003; 81015; 82553; 83690; 83880; 84484; 84703; 85025; 93005; 93010; 99283-25

== ENCOUNTER → 2017-05-04 | Emergency (ER) | payer BC ==
[~2017-05-04] MED LIST: LABETALOL HCL 100 MG TABLET (FP) ONE; LABETALOL HCL 200 MG TABLET (FP) PO ONE; ONDANSETRON 4 MG/2 ML VIAL IVPUSH ONE; ONDANSETRON 4 MG/2 ML VIAL ONE; morphine CARPU-JECT 2 MG/1 ML DISP.SYRIN IM ONE; morphine CARPU-JECT 2 MG/1 ML DISP.SYRIN IVPUSH ONE; morphine CARPU-JECT 4 MG/1 ML DISP.SYRIN IVPUSH ONE; morphine CARPU-JECT 4 MG/1 ML DISP.SYRIN ONE
[2017-05-04 07:34] VITALS: BMI 27.3
--- NOTE | 2017-05-04 07:38 | PDOC ---
History of Present Illness - General Chief Complaint: Nausea/Vomiting Stated Complaint: VOMITING Time Seen by Provider: 05/04/17 07:35 History Source: Patient - History of Present Illness Initial Comments: 05/04/17 08:12 CC: 9 day h/o of abdominal pain Patient is a 37 y.o. female with a PMH of HTN, DM, CAD (s/p 04/03 [place]) and recurrent gastroparesis who presents to the ED today c/o a 9 day h/o vomiting ( non-bloody, non-bilious) as well as an associated "sharp" diffuse 10/10 non- radiating abdominal and chest pain. Patient states the abdominal and chest pain started after she started vomiting last week. Patient cannot identify and triggering or relieving factors for her vomiting or her pain but notes on two occasions that Dilaudid which she as given on a prior admission has been the only medication that relieves her pain. Patient denies any diaphoresis, shortness of breath, fever, chills, diarrhea and constipation and notes her last BM was two days previous and was slightly loose and smaller than normal which she attributes to her not eating. Patient notes she was previously evaluated at our facility last week (as per EMR 04/28/17) at which time the prescribed Reglan did not relieve her vomiting. PSH: C/S, Stent placement x4 Social: (-) current nicotine use (last cigarette May 2016, previous smoked 1 ppd > 20 years), (-) alcohol, (+) marijuana, (-) cocaine, (-) heroin. PMD: Dr. Ashleigh Valencia Past History - Past Medical History Allergies/Adverse Reactions: Allergies Allergy/AdvReac Type Severity Reaction Status Date / Time cephalexin monohydrate Allergy Severe Hives Verified 05/04/17 07:30 [From [facility]] Home Medications: Ambulatory Orders Aspirin [Aspirin EC] 81 mg PO DAILY 11/13/15 Metformin HCl 500 mg PO BID 08/25/16 Ondansetron [Zofran *Odt*] 8 mg SL TID PRN #30 od.tablet 10/05/16 Atorvastatin Ca [Lipitor] 80 mg PO HS #30 tablet 10/09/16 Labetalol HCl [Normodyne -] 200 mg PO BID #60 tablet 10/09/16 Sitagliptin Phosphate [Januvia -] 25 mg PO DAILY@0700 #30 tab 10/09/16 Ticagrelor [Brilinta -] 90 mg PO BID tablet 10/09/16 Mag Carb/Al Hydrox/Alginic AC [Gaviscon Liquid] 15 - 30 ml PO Q6H PRN #355 oz Metoclopramide HCl [Reglan] 10 mg PO TID #270 tablet 02/24/17 Pantoprazole Sodium 40 mg PO DAILY #90 tablet. 02/24/17 Ranolazine [Ranexa -] 500 mg PO BID tab 03/23/17 Famotidine [Pepcid] 20 mg PO DAILY #14 tablet 04/28/17 Metoclopramide HCl [Reglan] 10 mg GT Q8H #15 tablet 04/28/17 Ondansetron HCl [Zofran] 8 mg PO PRN PRN #20 tablet MDD Two tablets daily Anemia: No Asthma: No Cancer: (cervical ca) Cardiac Disorders: Yes ([place] X 6) CVA: No COPD: No CHF: Yes Dementia: No Diabetes: Yes GI Disorders: Yes (GASTROPARESIS) Disorders: No HTN: Yes Hypercholesterolemia: Yes Liver Disease: No Psychiatric Problems: Yes (anxiety) Suicide Attempt (Hx): No Seizures: No Thyroid Disease: No - Surgical History Abdominal Surgery: No Appendectomy: No Cardiac Surgery: Yes (4 STENTS) Cholecystectomy: No Lung Surgery: No Neurologic Surgery: No Orthopedic Surgery: Yes (ROTATOR CUFF REPAIR) - Reproductive History (#): 5 Para: 0 Cervical CA: Yes Dysfunctional Uterine Bleeding: Yes Ectopic : Yes Endometrial CA: Yes Therapeutic (s) & number: Yes (1) Spontaneous : 4 - Immunization History Immunization Up to Date: Yes - Psycho/Social/Smoking Cessation Hx Anxiety: No Suicidal Ideation: No Smoking Status: Yes (QUIT 3 MONTHS AGO) Smoking History: Never smoked Have you smoked in the past 12 months: No Number of Cigarettes Smoked Daily: 1 If you are a former smoker, when did you quit?: 2015 Information on smoking cessation initiated: No 'Breaking Loose' booklet given: 08/25/16 Hx Alcohol Use: No Drug/Substance Use Hx: No Substance Use Type: Marijuana Hx Substance Use Treatment: No Review of Systems - Review of Systems Constitutional: No: Chills, Diaphoresis HEENTM: No: Blurred Vision, Double Vision, Tinnitus, Throat Pain Respiratory: No: Cough, Shortness of Breath, Stridor, Wheezing Cardiac (ROS): No: Chest Pain, Lightheadedness, Palpitations, Syncope ABD/GI: Yes: Nausea, Vomiting. No: Constipated, Diarrhea : No: Burning, Dysuria Integumentary: No: Bruising, Change in Color, Erythema, Lesions Neurological: No: Headache, Numbness Psychiatric: No: Anxiety, Depression All Other Systems: Reviewed and Negative *Physical Exam - Vital Signs Last Vital Signs Temp Pulse Resp BP Pulse Ox 90 18 183/100 100 05/04/17 07:30 05/04/17 07:30 05/04/17 07:30 05/04/17 07:30 - Physical Exam General Appearance: Yes: Nourished, Appropriately Dressed HEENT: positive: EOMI, SESAR Neck: positive: Trachea midline, Supple Respiratory/Chest: positive: Lungs Clear, Normal Breath Sounds Cardiovascular: positive: Regular Rhythm, S1, S2, Tachycardia, Other (No reproducible chest pain with palpitation) Gastrointestinal/Abdominal: positive: Tender, Soft, Other (Patient's has soft abdomen, Ocasio's sign negative, normal BS in all 4 quadrants) Extremity: positive: Normal Capillary Refill, Normal Inspection Integumentary: positive: Normal Color, Dry, Warm 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 female who presents with a 9 day h/o of non-bloody, non- bilious vomiting as well as associated "sharp" non-radiating abdominal and chest pain. On PE, patient is intermittently tachycardic with other VS within normal limits. Differential diagnosis includes diabetic gastroparesis vs. ACS vs. SBO vs. UTI (less likely). EKG shows sinus tachycardia (HR 101) with no appreciable ST segment elevations or depression and normal QTc. Calculated Heart Score is 4. Troponin was negative x2 and UA showed ketones with no signs of UTI (nitrite negative, leukocyte esterase negative). Patient was counseled on pain management and referred to Dr. Brien Che for [facility] pain control. *DC/Admit/Observation/Transfer Diagnosis at time of Disposition: Diabetic gastroparesis associated with type 2 diabetes mellitus - Discharge Dispostion Admit: No - Prescriptions Prescriptions: Ondansetron HCl [Zofran] 8 mg PO PRN PRN #20 tablet MDD Two tablets daily PRN Reason: Nausea - Patient Instructions Printed Discharge Instructions: DI for Nausea -- Adult, DI for Vomiting -- Adult Additional Instructions: Please call Dr. Brien Che for an appointment within 1 week to manage your pain. - Attestations Physician Attestion: 05/04/17 16:18 I, Dr. Jennifer Magallanes, attest that this document has been prepared under my direction and personally reviewed by me in its entirety. I further attest, that it accurately reflects all work, treatment, procedures and medical decision -making performed by me.
--- NOTE | 2017-05-04 08:02 | PDOC ---
Attending Attestation - Resident Resident Name: Jennifer Magallanes - ED Attending Attestation I have performed the following: I have examined & evaluated the patient, The case was reviewed & discussed with the resident, I agree w/resident's findings & plan, Exceptions are as noted - HPI HPI: 05/04/17 07:52 37yo F hx HTN, CAD s/p stent (most recently, 03/2017), DM c/b gastropareisis p/w 9 days of emesis a/w abd pain and CP. Was seen here for the same 04/28 - got reglan and morphine, and walked out before complete evaluation. Abd pain is intermittent, diffuse with no triggers, sharp in nature and she has had on and off for years. She reports dilaudid is the only medication that relieves her pain. She has not counted how many episodes of emesis she has had but says many , no blood in emesis. Last BM was normal, yesterday. Feels like previous episodes of gastropareisis. CP is substernal, sharp, non radiating with no associated diaphoresis, does not feel like previous NE. She reports that she has CP all the time and this is consistent with her chronic CP. No fevers, chills. No headache, seizures, no focal weakness or numbness. She has not tried any treatments at home, says she ran out of her zofran. - Physicial Exam PE: 05/04/17 08:03 GENERAL: Awake, alert, and fully oriented, in no acute distress HEAD: No signs of trauma EYES: PERRLA, EOMI, sclera anicteric, conjunctiva clear ENT: Auricles normal inspection, hearing grossly normal, nares patent, oropharynx clear without exudates. Moist mucosa NECK: Normal ROM, supple, no lymphadenopathy, JVD, or masses LUNGS: Breath sounds equal, clear to auscultation bilaterally. No wheezes, and no crackles HEART: Regular rate and rhythm, normal S1 and S2, no murmurs, rubs or gallops ABDOMEN: Soft, mild epigastric ttp, no guarding, no rebound. No masses EXTREMITIES: Normal range of motion, no edema. No clubbing or cyanosis. No cords, erythema, or tenderness NEUROLOGICAL: Normal speech, cranial nerves intact, negative pronator drift, 5/ 5 strength in all 4 extremities, normal sensation to light touch in all 4 extremities, normal cerebellar exam, normal gait, normal reflexes and tone SKIN: Warm, Dry, normal turgor, no rashes or lesions noted. 05/04/17 16:38 Twelve-lead EKG was performed and reviewed by me. Sinus tachycardia, rate 101. Normal axis. No ST elevations. No T-wave inversions. - Medical Decision Making 05/04/17 14:29 37yo F history of diabetes complicated by gastroparesis presents with abdominal pain, nausea, vomiting. Exam remarkable for mild epigastric tenderness to palpation. Likely exacerbation of her gastroparesis. -labs -UPT -UA -pain control -antiemetics -reassess 05/04/17 16:33 Patient has a mild white count to 13. Otherwise her labs including CBC, troponin , urinalysis, CMP are unremarkable. The patient required a few doses of morphine to control her pain but reports improvement in her abd pain. On reassessment, abd exam wnl with no tenderness to palpation, rebound, guarding, distention. She also reports improvement in her nausea after IV Zofran. The patient successfully PO challenged. I discussed the physical exam findings, ancillary test results and final diagnoses with the patient. I answered all of the patient's questions. The patient was satisfied with the care received and felt comfortable with the discharge plan and treatment plan. The patient will call their primary care physician within 24 hours to arrange follow-up. I also recommended to the patient that she follow up with a pain management doctor given her chronic pain symptoms. She reports no one has referred her to one before and will call to make an appointment. I advised her to return to the Emergency Department with any new, persistent or worsening symptoms.
[2017-05-04 08:25] LABS: MCH 27.3 pg (25.7-33.7); MCHC 33.5 g/dl (32.0-36.0); MEAN CELL VOLUME 81.6 fl (80-96); MEAN PLT VOLUME 7.2 fl (7.5-11.1); PLATELET COUNT 518 K/MM3 (134-434); RDW 19.2 % (11.6-15.6); WHITE BLOOD COUNT 13.2 K/mm3 (4.0-10.0)
[2017-05-04 08:39] LABS: URINE APPEARANCE CLEAR; URINE BILIRUBIN NEGATIVE (NEGATIVE); URINE BLOOD 1+ (NEGATIVE); URINE COLOR COLORLESS; URINE GLUCOSE (UA) 3+ (NEGATIVE); URINE KETONE NEGATIVE (NEGATIVE); URINE LEUK ESTERASE NEGATIVE (NEGATIVE); URINE NITRITE NEGATIVE (NEGATIVE); URINE PROTEIN NEGATIVE (NEGATIVE); URINE UROBILINOGEN NEGATIVE mg/dL (0.2-1.0)
[2017-05-04 09:06] LABS: URINE RBC <1 /hpf (0-3); URINE WBC 1 /hpf (3-5)
[2017-05-04 09:29] LABS: ALBUMIN 4.6 g/dl (3.4-5.0); ALK PHOS 66 U/L (45-117); ANION GAP 11 (8-16); BILIRUBIN,TOTAL 0.5 mg/dL (0.2-1.0); CALCIUM 9.7 mg/dL (8.5-10.1); CO2 23 mmol/L (21-32); CREATININE 1.1 mg/dL (0.55-1.02); SGOT/AST 21 U/L (15-37); SGPT/ALT 47 U/L (12-78); TOT PROT 8.5 g/dl (6.4-8.2)
[2017-05-04 09:38] LABS: GLUCOSE,RANDOM 319 mg/dL (74-106)
--- NOTE | 2017-05-04 13:37 | EKG ---
Test Reason : Blood Pressure : / mmHG Vent. Rate : 101 BPM Atrial Rate : 101 BPM P-R Int : 146 ms QRS Dur : 084 ms QT Int : 348 ms P-R-T Axes : 057 003 049 degrees QTc Int : 451 ms SINUS TACHYCARDIA POSSIBLE LEFT ATRIAL ENLARGEMENT ANTERIOR INFARCT , AGE UNDETERMINED ABNORMAL ECG WHEN COMPARED WITH ECG OF 28-APR-2017 06:25, PREMATURE VENTRICULAR COMPLEXES ARE NO LONGER PRESENT Confirmed by YONY STORM, DANI ([id number]) on 05/04/2017 1:36:55 PM Referred By: Confirmed By:DANI BHAKTA MD
[2017-05-04 13:59] LABS: TROPONIN I < 0.02 ng/ml (0.00-0.05)
[2017-05-04 15:06] LABS: CPK 330 IU/L (26-192)
[2017-05-04 15:07] LABS: TROPONIN I < 0.02 ng/ml (0.00-0.05)
[2017-05-04 15:48] VITALS: TEMP 98
[2017-05-04 17:23] VITALS: BP 119/78; PULSE 88
== END | disposition home or self-care (01) ==
LOC: JER 07:28
PROC: 3E033NZ Introduction of Analgesics, Hypnotics, Sedatives into Peripheral Vein, Percutaneous Approach (ICD-10-PCS; principal; 2017-05-04)
PROC: 3E033GC Introduction of Other Therapeutic Substance into Peripheral Vein, Percutaneous Approach (ICD-10-PCS; 2017-05-04)
DX: E11.43 Type 2 diabetes mellitus with diabetic autonomic (poly)neuropathy (principal); K31.84 Gastroparesis; Z79.84 Long term (current) use of oral hypoglycemic drugs; I10 Essential (primary) hypertension; I50.9 Heart failure, unspecified; I25.10 Atherosclerotic heart disease of native coronary artery without angina pectoris; I25.2 Old myocardial infarction; Z88.1 Allergy status to other antibiotic agents; Z79.82 Long term (current) use of aspirin; Z85.41 Personal history of malignant neoplasm of cervix uteri; E78.00 Pure hypercholesterolemia, unspecified; F41.9 Anxiety disorder, unspecified; Z95.5 Presence of coronary angioplasty implant and graft; F17.211 Nicotine dependence, cigarettes, in remission
CPT/HCPCS: 36415; 71020-TC; 80053; 81003; 81015; 82553; 83690; 84484; 84703; 85027; 93005; 93010; 99284-25

== ENCOUNTER 2017-05-30 18:33 | Emergency (ER) | payer BC ==
[2017-05-30 18:37] VITALS: BMI 25.8
--- NOTE | 2017-05-30 19:26 | PDOC ---
History of Present Illness - General Chief Complaint: Pain Stated Complaint: NAUSEA/VOMITING Time Seen by Provider: 05/30/17 19:00 History Source: Patient - History of Present Illness Initial Comments: 05/30/17 19:37 37-year-old female complaining of nausea and vomiting and generalized abdominal pain 1 day. Patient reports unable to tolerate any fluid all day with severe abdominal pain. Patient with multiple visits to the ER with similar complaint. Patient has a history of NDDIM, hypertension, AL. Gastroparesis. Patient did ER noted to have high blood pressure. Patient reports not taking her regular dose of labetalol today due to the vomiting. Past History - Past Medical History Allergies/Adverse Reactions: Allergies Allergy/AdvReac Type Severity Reaction Status Date / Time cephalexin monohydrate Allergy Severe Hives Verified 05/30/17 18:37 [From [employer]] Home Medications: Ambulatory Orders Aspirin [Aspirin EC] 81 mg PO DAILY 11/13/15 Metformin HCl 500 mg PO BID 08/25/16 Ondansetron [Zofran *Odt*] 8 mg SL TID PRN #30 od.tablet 10/05/16 Atorvastatin Ca [Lipitor] 80 mg PO HS #30 tablet 10/09/16 Labetalol HCl [Normodyne -] 200 mg PO BID #60 tablet 10/09/16 Sitagliptin Phosphate [Januvia -] 25 mg PO DAILY@0700 #30 tab 10/09/16 Ticagrelor [Brilinta -] 90 mg PO BID tablet 10/09/16 Mag Carb/Al Hydrox/Alginic AC [Gaviscon Liquid] 15 - 30 ml PO Q6H PRN #355 oz Metoclopramide HCl [Reglan] 10 mg PO TID #270 tablet 02/24/17 Pantoprazole Sodium 40 mg PO DAILY #90 tablet. 02/24/17 Ranolazine [Ranexa -] 500 mg PO BID tab 03/23/17 Famotidine [Pepcid] 20 mg PO DAILY #14 tablet 04/28/17 Metoclopramide HCl [Reglan] 10 mg GT Q8H #15 tablet 04/28/17 Ondansetron HCl [Zofran] 8 mg PO PRN PRN #20 tablet MDD Two tablets daily Anemia: No Asthma: No Cancer: (cervical ca) Cardiac Disorders: Yes (AL X 6) CVA: No COPD: No CHF: Yes Dementia: No Diabetes: Yes GI Disorders: Yes (GASTROPARESIS) Disorders: No HTN: Yes Hypercholesterolemia: Yes Liver Disease: No Psychiatric Problems: Yes (anxiety) Suicide Attempt (Hx): No Seizures: No Thyroid Disease: No - Surgical History Abdominal Surgery: No Appendectomy: No Cardiac Surgery: Yes (4 STENTS) Cholecystectomy: No Lung Surgery: No Neurologic Surgery: No Orthopedic Surgery: Yes (ROTATOR CUFF REPAIR) - Reproductive History (#): 5 Para: 0 Cervical CA: Yes Dysfunctional Uterine Bleeding: Yes Ectopic : Yes Endometrial CA: Yes Therapeutic (s) & number: Yes (1) Spontaneous : 4 - Immunization History Immunization Up to Date: Yes - Psycho/Social/Smoking Cessation Hx Anxiety: No Suicidal Ideation: No Smoking Status: Yes (QUIT 3 MONTHS AGO) Smoking History: Current every day smoker Have you smoked in the past 12 months: No Number of Cigarettes Smoked Daily: 1 If you are a former smoker, when did you quit?: 2015 Information on smoking cessation initiated: Yes 'Breaking Loose' booklet given: 05/30/17 Hx Alcohol Use: No Drug/Substance Use Hx: No Substance Use Type: None Hx Substance Use Treatment: No Review of Systems - Review of Systems Able to Perform ROS?: Yes Is the patient limited Maori proficient: No Constitutional: No: Symptoms Reported, See HPI, Chills, Diaphoresis, Fever, Loss of Appetite, Malaise, Night Sweats, Weakness, Weight Stable, Unintentional Wgt. Loss, Unexplained wgt Loss, Other Respiratory: No: Symptoms reported, See HPI, Cough, Orthopnea, Shortness of Breath, SOB with Exertion, SOB at Rest, Stridor, Wheezing, Productive cough, Hemoptysis, Other ABD/GI: Yes: Diarrhea, Nausea, Vomiting, Abdominal cramping. No: Symptoms Reported, See HPI, Abdominal Distended, Abd. Pain w/ defecation, Blood Streaked Bowels, Constipated, Difficulty Swallowing, Poor Appetite, Poor Fluid Intake, Rectal Bleeding, Indigestion, Tarry Stools, Other : No: Symptoms Reported, See HPI, Burning, Dysuria, Discharge, Frequency, Flank Pain, Hematuria, Incontinence, Pain, Urgency, Testicular Mass, Testicular Swelling, Lesions, Testicular Pain, Other Musculoskeletal: No: Symptoms Reported, See HPI, Back Pain, Gout, Joint Pain, Joint Swelling, Muscle Pain, Muscle Weakness, Neck Pain, Joint Stiffness, Other Integumentary: No: Symptoms Reported, See HPI, Bruising, Change in Color, Change in Hair/Nails, Dryness, Erythema, Flushing, Lesions, Lumps, Pallor, Pruritus, Rash, Sweating, Other Neurological: No: Symptoms reported, See HPI, Headache, Numbness, Paresthesia, Pre-Existing Deficit, Seizure, Tingling, Tremors, Weakness, Unsteady Gait, Ataxia, Dizziness, Other Psychiatric: No: Anxiety, Depression, Frequent Crying, Stressors, Sleep Pattern Change, Emotional Problems, Mood Swings, Change in Appetite, Other Endocrine: No: Symptoms Reported, See HPI, Excessive Sweating, Flushing, Intolerance to Cold, Intolerance to Heat, Increased Hunger, Increased Thirst, Increased Urine, Unexplained Weight Gain, Unexplained Weight Loss, Change in Weight, Other Hematologic/Lymphatic: No: Symptoms Reported, See HPI, Anemia, Blood Clots, Easy Bleeding, Easy Bruising, Bleeding Diathesis, Lymph Node Abnormalities, Swollen Glands, Other *Physical Exam - Vital Signs Last Vital Signs Temp Pulse Resp BP Pulse Ox 98.4 F 114 H 19 235/125 98 05/30/17 18:35 05/30/17 18:35 05/30/17 18:35 05/30/17 18:35 05/30/17 18:35 - Physical Exam General Appearance: Yes: Mild Distress Respiratory/Chest: positive: Lungs Clear, Normal Breath Sounds Cardiovascular: positive: Regular Rhythm, S1, S2, Tachycardia Gastrointestinal/Abdominal: positive: Normal Bowel Sounds, Tender (genralized), Soft Musculoskeletal: positive: Normal Inspection Extremity: positive: Normal Capillary Refill, Normal Inspection, Normal Range of Motion Integumentary: positive: Normal Color, Dry, Warm Neurologic: positive: Fully Oriented, Alert, Normal Mood/Affect Heart Score/ECG Review - ECG Intrepretation Rhythm: Regular Rhythm Comment:: 05/30/17 22:41 Sinus Tachycardia: 105 ED Treatment Course - LABORATORY CBC & Chemistry Diagram: 05/30/17 17:37 05/30/17 17:37 Progress Note - Progress Note Progress Note: A: abdominal pain; hypertension P: IVF pain control nausea labetalol Medical Decision Making - Medical Decision Making 05/30/17 20:55 patient reports minimal pain relief with dilaudid. will reevaluate. reviewed previous records. last visit patient eloped prior to completion of treatment. 05/30/17 22:42 patient is feeling better. going home via taxi. patient advised to follow u p with pain management and GI for chronic pain and gastroparesis. *DC/Admit/Observation/Transfer Diagnosis at time of Disposition: Nausea and vomiting Qualifiers: Vomiting type: cyclical vomiting Vomiting Intractability: intractable Qualified Code(s): G43.A1 - Cyclical vomiting, intractable Hypertension Qualifiers: Hypertension type: essential hypertension Qualified Code(s): I10 - Essential ( primary) hypertension Abdominal pain Qualifiers: Abdominal location: generalized Qualified Code(s): R10.84 - Generalized abdominal pain - Discharge Dispostion Disposition: HOME - Referrals Referrals: Ashleigh Valencia MD [Primary Care Provider] - Brien Che MD [Staff Physician] - 2 Days Wan Sifuentes MD [Staff Physician] - 2 Days - Patient Instructions Printed Discharge Instructions: DI for Gastroparesis Additional Instructions: follow up with your GI doctor and pain management doctor as soon as possible. take Reglan as previously prescribed. return to the ER if symptoms worsen.
[2017-05-30] MEDS ORDERED: SODIUM CHLORIDE 1,000 ML IV STA ×2 (19:27→21:45)
[2017-05-30] MEDS ORDERED: ONDANSETRON 4 MG/2 ML VIAL IVPB ONE (19:27)
[2017-05-30] MEDS ORDERED: LABETALOL HCL 5 MG/1 ML (100MG/20 ML VIAL) IVPUSH ONE (19:33)
[2017-05-30] MEDS ORDERED: HYDROmorphone HCL CARPU-JECT 1 MG/1 ML DISP.SYRIN IVPUSH ONE ×2 (19:35→22:00)
[2017-05-30] MEDS ORDERED: ONDANSETRON 4 MG/2 ML VIAL ONE (19:44)
[2017-05-30] MEDS ORDERED: LABETALOL HCL 5 MG/1 ML (200MG/40ML VIAL) IVPB ONE (19:52)
[2017-05-30] MEDS ORDERED: HYDROmorphone HCL CARPU-JECT 1 MG/1 ML DISP.SYRIN ONE ×2 (19:52→22:04)
[2017-05-30 19:53] LABS: BASOPHIL 0.6 % (0-2.0); MCH 26.8 pg (25.7-33.7); MCHC 33.6 g/dl (32.0-36.0); MEAN CELL VOLUME 79.8 fl (80-96); MEAN PLT VOLUME 6.9 fl (7.5-11.1); NEUTROPHILS 84.6 % (42.8-82.8); PLATELET COUNT 456 K/MM3 (134-434); RDW 18.9 % (11.6-15.6); WHITE BLOOD COUNT 11.8 K/mm3 (4.0-10.0)
[2017-05-30 19:54] LABS: URINE APPEARANCE SLCLOUDY; URINE BILIRUBIN NEGATIVE (NEGATIVE); URINE BLOOD 1+ (NEGATIVE); URINE COLOR STRAW; URINE GLUCOSE (UA) 3+ (NEGATIVE); URINE KETONE 1+ (NEGATIVE); URINE LEUK ESTERASE NEGATIVE (NEGATIVE); URINE NITRITE NEGATIVE (NEGATIVE); URINE PROTEIN NEGATIVE (NEGATIVE); URINE UROBILINOGEN NEGATIVE mg/dL (0.2-1.0)
[2017-05-30 20:20] LABS: URINE MUCUS RARE; URINE RBC 5 /hpf (0-3); URINE WBC 1 /hpf (3-5)
[2017-05-30 20:53] LABS: ALBUMIN 4.8 g/dl (3.4-5.0); ANION GAP 12 (8-16); BILIRUBIN,TOTAL 0.5 mg/dL (0.2-1.0); CO2 22 mmol/L (21-32); CREATININE 1.2 mg/dL (0.55-1.02); SGOT/AST 27 U/L (15-37); SGPT/ALT 34 U/L (12-78); TOT PROT 9.1 g/dl (6.4-8.2)
[2017-05-30 20:54] LABS: ALK PHOS 65 U/L (45-117)
[2017-05-30 20:55] LABS: GLUCOSE,RANDOM 310 mg/dL (74-106)
[2017-05-30 20:56] LABS: TROPONIN I 0.02 ng/ml (0.00-0.05)
[2017-05-30] MEDS ORDERED: METOCLOPRAMIDE HCL INJECTION 10 MG/2 ML VIAL IVPB ONE (22:00)
[2017-05-30] MEDS ORDERED: DICYCLOMINE HCL 20 MG TABLET PO ONE (22:00)
[2017-05-30] MEDS ORDERED: METOCLOPRAMIDE HCL INJECTION 10 MG/2 ML VIAL ONE (22:04)
[2017-05-30] MEDS ORDERED: DICYCLOMINE HCL 10 MG CAPSULE ONE (22:05)
[2017-05-30] MEDS ORDERED: DICYCLOMINE HCL 10 MG CAPSULE PO ONE (22:15)
[2017-05-30 22:57] VITALS: BP 158/90; PULSE 86; TEMP 98.7
--- NOTE | 2017-05-31 10:45 | EKG ---
Test Reason : Blood Pressure : / mmHG Vent. Rate : 105 BPM Atrial Rate : 105 BPM P-R Int : 158 ms QRS Dur : 080 ms QT Int : 342 ms P-R-T Axes : 060 044 026 degrees QTc Int : 452 ms SINUS TACHYCARDIA POSSIBLE LEFT ATRIAL ENLARGEMENT BORDERLINE ECG WHEN COMPARED WITH ECG OF 04-MAY-2017 07:39, NO SIGNIFICANT CHANGE WAS FOUND Confirmed by ANDREI PERALTA MD ([id number]) on 05/31/2017 10:45:20 AM Referred By: Confirmed By:ANDREI PERALTA MD
== END 2017-05-30 22:57 | disposition home or self-care (01) ==
LOC: JER 18:33
PROC: 3E033NZ Introduction of Analgesics, Hypnotics, Sedatives into Peripheral Vein, Percutaneous Approach (ICD-10-PCS; principal; 2017-05-30)
PROC: 3E033GC Introduction of Other Therapeutic Substance into Peripheral Vein, Percutaneous Approach (ICD-10-PCS; 2017-05-30)
DX: R10.84 Generalized abdominal pain (principal); G43.A1 Cyclical vomiting, in migraine, intractable; I10 Essential (primary) hypertension; E11.9 Type 2 diabetes mellitus without complications; Z79.84 Long term (current) use of oral hypoglycemic drugs; I25.2 Old myocardial infarction; K31.84 Gastroparesis; F41.8 Other specified anxiety disorders; Z85.41 Personal history of malignant neoplasm of cervix uteri
CPT/HCPCS: 36415; 80053; 81003; 81015; 82553; 83690; 84484; 84703; 85025; 93005; 93010; 99283-25

== ENCOUNTER 2017-07-18 11:51 | Emergency (ER) | payer BC ==
[2017-07-18 12:18] VITALS: TEMP 97.3; BMI 22.1
[2017-07-18] MEDS ORDERED: ONDANSETRON 4 MG/2 ML VIAL IVPUSH ONE ×2 (14:10→17:32)
[2017-07-18] MEDS ORDERED: SODIUM CHLORIDE 1,000 ML IV STA (14:10)
[2017-07-18] MEDS ORDERED: KETOROLAC TROMETHAMINE 30 MG/1 ML VIAL IVPUSH ONE (14:10)
--- NOTE | 2017-07-18 14:19 | PDOC ---
History of Present Illness - General Chief Complaint: Chest Pain Stated Complaint: ABD PAIN Time Seen by Provider: 07/18/17 14:01 History Source: Patient - History of Present Illness Timing/Duration: reports: other Quality: reports: severe Past History - Past Medical History Allergies/Adverse Reactions: Allergies Allergy/AdvReac Type Severity Reaction Status Date / Time cephalexin monohydrate Allergy Severe Hives Verified 07/18/17 12:11 [From [employer]] Home Medications: Ambulatory Orders Aspirin [Aspirin EC] 81 mg PO DAILY 11/13/15 Metformin HCl 500 mg PO BID 08/25/16 Atorvastatin Ca [Lipitor] 80 mg PO HS #30 tablet 10/09/16 Labetalol HCl [Normodyne -] 200 mg PO BID #60 tablet 10/09/16 Sitagliptin Phosphate [Januvia -] 25 mg PO DAILY@0700 #30 tab 10/09/16 Ticagrelor [Brilinta -] 90 mg PO BID tablet 10/09/16 Mag Carb/Al Hydrox/Alginic AC [Gaviscon Liquid] 15 - 30 ml PO Q6H PRN #355 oz Metoclopramide HCl [Reglan] 10 mg PO TID #270 tablet 02/24/17 Pantoprazole Sodium 40 mg PO DAILY #90 tablet. 02/24/17 Ranolazine [Ranexa -] 500 mg PO BID tab 03/23/17 Famotidine [Pepcid] 20 mg PO DAILY #14 tablet 04/28/17 Anemia: No Asthma: No Cancer: (cervical ca) Cardiac Disorders: Yes (ND X 6) CVA: No COPD: No CHF: Yes Dementia: No Diabetes: Yes GI Disorders: Yes (GASTROPARESIS) Disorders: No HTN: Yes Hypercholesterolemia: Yes Liver Disease: No Psychiatric Problems: Yes (anxiety) Seizures: No Thyroid Disease: No - Surgical History Abdominal Surgery: No Appendectomy: No Cardiac Surgery: Yes (4 STENTS) Cholecystectomy: No Lung Surgery: No Neurologic Surgery: No Orthopedic Surgery: Yes (ROTATOR CUFF REPAIR) - Reproductive History (#): 5 Para: 0 Cervical CA: Yes Dysfunctional Uterine Bleeding: Yes Ectopic : Yes Endometrial CA: Yes Therapeutic (s) & number: Yes (1) Spontaneous : 4 - Immunization History Immunization Up to Date: Yes - Suicide/Smoking/Psychosocial Hx Smoking Status: Yes (QUIT 3 MONTHS AGO) Smoking History: Former smoker Have you smoked in the past 12 months: Yes Number of Cigarettes Smoked Daily: 1 If you are a former smoker, when did you quit?: 2015 Information on smoking cessation initiated: No 'Breaking Loose' booklet given: 05/30/17 Hx Alcohol Use: No Drug/Substance Use Hx: No Substance Use Type: None Hx Substance Use Treatment: No Review of Systems - Review of Systems Constitutional: No: Chills, Fever Respiratory: No: Shortness of Breath Cardiac (ROS): No: Chest Pain ABD/GI: Yes: Nausea. No: Blood Streaked Bowels, Diarrhea, Rectal Bleeding, Vomiting, Tarry Stools : No: Dysuria *Physical Exam - Vital Signs Last Vital Signs Temp Pulse Resp BP Pulse Ox 97.3 F L 99 H 20 148/96 100 07/18/17 12:11 07/18/17 12:11 07/18/17 12:11 07/18/17 12:11 07/18/17 12:11 - Physical Exam Comments: 07/18/17 14:19 Pt throwing herself on the floor, c/o pain General Appearance: Yes: Appropriately Dressed, Severe Distress HEENT: positive: Normal Voice Neck: positive: Supple Respiratory/Chest: positive: Lungs Clear, Normal Breath Sounds. negative: Respiratory Distress Cardiovascular: positive: Regular Rate, S1, S2 Gastrointestinal/Abdominal: positive: Normal Bowel Sounds, Tender (poorly localized upper abd tenderness), Soft. negative: Distended, Guarding, Rebound Musculoskeletal: negative: CVA Tenderness Integumentary: positive: Dry, Warm Neurologic: positive: Fully Oriented, Alert Heart Score/ECG Review - ECG Intrepretation Comment:: 07/18/17 14:46 Sinus tachycardia to 106 bpm, no acute ST-T wave changes, axis and intervals within normal limits ED Treatment Course - LABORATORY CBC & Chemistry Diagram: 07/18/17 14:10 07/18/17 14:40 Medical Decision Making - Medical Decision Making 07/18/17 14:11 37-year-old female, history of HTN, DM, CAD status post multiple stents, CABG on Brilinta, on Protonix for possible gastritis, gastroparesis, marijuana use, presents with abdominal pain and nausea. Of note, patient has had multiple ED visits for same and on several occasions, it was documented that patient requested dilaudid as the "only" thing to help her pain. Last time presented for similar symptoms was May of this year and referred to pain management , which patient has not yet done. Patient states she has upper abd pain which is severe and "always there". Unclear what changed today. No acute change in bowel movements, melena, bright red blood per rectum, dysuria, hematuria, fever or chills. F/u with Dr Sanchez of GI. Pt denies any CP or SOB to me. Patient was observed by myself walking into the ED appearing comfortable and as soon as I walked into examination room, patient proceeded to throw herself on the floor and states she is unable to sit or lay down on stretcher because of pain. See exam Chronic abd pain w/ multiple ED visits H/o gastroparesis, ?gastritis (states EGD ~2 weeks ago unremarkable) on protonix vs cyclical n/v (use marijuana almost daily) vs DKA Stable but appears uncomfortable -zofran -pain control -IVF -labs -reassess 07/18/17 14:20 07/18/17 14:47 07/18/17 16:47 Glu 278 w/ glu and ketones on ua but no gap at this time. Has since received 1 L IVF. Rest of labs unremarkable. Pt currently sleeping in ED. Will reassess 07/18/17 16:48 07/18/17 17:11 Patient well-appearing and in no apparent distress. Refuses po trial in ED. 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 Also follow-up with pain management
[2017-07-18] MEDS ORDERED: KETOROLAC TROMETHAMINE 30 MG/1 ML VIAL ONE (14:23)
[2017-07-18] MEDS ORDERED: ONDANSETRON 4 MG/2 ML VIAL ONE ×2 (14:23→17:48)
--- NOTE | 2017-07-18 14:40 | PDOC ---
*Physical Exam - Vital Signs Last Vital Signs Temp Pulse Resp BP Pulse Ox 97.3 F L 99 H 20 148/96 100 07/18/17 12:11 07/18/17 12:11 07/18/17 12:11 07/18/17 12:11 07/18/17 12:11 - Physical Exam General Appearance: Yes: Nourished Respiratory/Chest: positive: Lungs Clear, Normal Breath Sounds Cardiovascular: positive: Regular Rate, S1, S2. negative: Edema Gastrointestinal/Abdominal: positive: Normal Bowel Sounds, Tender (diffusely tender, ), Flat, Soft Musculoskeletal: positive: Normal Inspection. negative: CVA Tenderness Integumentary: positive: Normal Color, Dry, Warm Neurologic: positive: Fully Oriented, Alert, Normal Mood/Affect ED Treatment Course - LABORATORY CBC & Chemistry Diagram: 07/18/17 14:10 07/18/17 14:40 Medical Decision Making - Medical Decision Making 07/18/17 14:36 37 yo F with h/o diabetes, gastroparesis here wtih intractable n/v . pt seen and examined with KALA Linton, agree with assessment and plan differential : dehydration, gastritis, hypokalemia, dka, acidosis. plan ua ucg labs ivf, antiemetics. 07/18/17 17:02 pt panting and refusing to stay still for exam, demanding pain medication. pt pulled out her iv given reglan and ativan, feeling better resting comfortably after. *DC/Admit/Observation/Transfer Diagnosis at time of Disposition: Gastroparesis - Referrals Referrals: Ashleigh Valencia MD [Primary Care Provider] -
[2017-07-18] MEDS ORDERED: LORazepam 1 MG TABLET PO ONE (14:45)
[2017-07-18] MEDS ORDERED: LORazepam 0.5 MG TABLET ONE (14:49)
[2017-07-18 14:51] LABS: MCHC 33.5 g/dl (32.0-36.0); MEAN CELL VOLUME 77.7 fl (80-96); MEAN PLT VOLUME 6.1 fl (7.5-11.1); PLATELET COUNT 588 K/MM3 (134-434); RDW 20.1 % (11.6-15.6); WHITE BLOOD COUNT 10.6 K/mm3 (4.0-10.0)
[2017-07-18] MEDS ORDERED: LORazepam 2 MG/ML SDV VIAL ONE (14:54)
[2017-07-18] MEDS ORDERED: METOCLOPRAMIDE HCL INJECTION 10 MG/2 ML VIAL IVPB ONE (15:14)
[2017-07-18 15:15] LABS: ALBUMIN 4.5 g/dl (3.4-5.0); ANION GAP 13 (8-16); BILIRUBIN,TOTAL 0.6 mg/dL (0.2-1.0); CALCIUM 9.6 mg/dL (8.5-10.1); CO2 21 mmol/L (21-32); CREATININE 1.2 mg/dL (0.55-1.02); GLUCOSE,RANDOM 278 mg/dL (74-106); SGOT/AST 24 U/L (15-37); SGPT/ALT 29 U/L (12-78); TOT PROT 8.8 g/dl (6.4-8.2)
[2017-07-18] MEDS ORDERED: FAMOTIDINE 20 MG/50 ML IVPB 50 ML IVPB ONE ×2 (15:15→15:30)
[2017-07-18 15:17] LABS: ALK PHOS 66 U/L (45-117); CPK 276 IU/L (26-192); TROPONIN I < 0.02 ng/ml (0.00-0.05)
[2017-07-18] MEDS ORDERED: METOCLOPRAMIDE HCL INJECTION 10 MG/2 ML VIAL ONE (15:29)
[2017-07-18 15:57] LABS: TOTAL CELLS COUNTED 100
[2017-07-18 15:58] LABS: METAMYELOCYTE 1 % (0-2)
[2017-07-18 16:21] LABS: URINE APPEARANCE SLCLOUDY; URINE BILIRUBIN NEGATIVE (NEGATIVE); URINE BLOOD 1+ (NEGATIVE); URINE COLOR STRAW; URINE GLUCOSE (UA) 3+ (NEGATIVE); URINE KETONE 1+ (NEGATIVE); URINE NITRITE NEGATIVE (NEGATIVE); URINE PROTEIN NEGATIVE (NEGATIVE); URINE UROBILINOGEN NEGATIVE mg/dL (0.2-1.0)
[2017-07-18 17:23] LABS: URINE MARIJUANA THC POSITIVE ng/ml (CUTOFF=50)
[2017-07-18 18:09] VITALS: BP 108/52; PULSE 68
[2017-07-18 18:29] LABS: URINE LEUK ESTERASE Negative (NEGATIVE)
[2017-07-18 19:11] LABS: URINE BACTERIA RARE /hpf (NONE SEEN); URINE HYALINE CAST 1 /lpf; URINE MUCUS RARE; URINE RBC 1 /hpf (0-3); URINE WBC 2 /hpf (3-5)
--- NOTE | 2017-07-19 12:33 | EKG ---
Test Reason : Blood Pressure : / mmHG Vent. Rate : 106 BPM Atrial Rate : 106 BPM P-R Int : 152 ms QRS Dur : 080 ms QT Int : 332 ms P-R-T Axes : 070 022 060 degrees QTc Int : 441 ms POOR DATA QUALITY, INTERPRETATION MAY BE ADVERSELY AFFECTED SINUS TACHYCARDIA POSSIBLE LEFT ATRIAL ENLARGEMENT NONSPECIFIC ST ABNORMALITY ABNORMAL ECG WHEN COMPARED WITH ECG OF 30-MAY-2017 18:47, NO SIGNIFICANT CHANGE WAS FOUND Confirmed by ANDREI PERALTA MD ([id number]) on 07/19/2017 12:33:21 PM Referred By: Confirmed By:ANDREI PERALTA MD
== END 2017-07-18 18:09 | disposition home or self-care (01) ==
LOC: JER 11:51
PROC: 3E0337Z Introduction of Electrolytic and Water Balance Substance into Peripheral Vein, Percutaneous Approach (ICD-10-PCS; principal; 2017-07-18)
PROC: 3E033GC Introduction of Other Therapeutic Substance into Peripheral Vein, Percutaneous Approach (ICD-10-PCS; 2017-07-18)
PROC: 3E033NZ Introduction of Analgesics, Hypnotics, Sedatives into Peripheral Vein, Percutaneous Approach (ICD-10-PCS; 2017-07-18)
PROC: 3E033NZ Introduction of Analgesics, Hypnotics, Sedatives into Peripheral Vein, Percutaneous Approach (ICD-10-PCS; 2017-07-18)
PROC: 3E033NZ Introduction of Analgesics, Hypnotics, Sedatives into Peripheral Vein, Percutaneous Approach (ICD-10-PCS; 2017-07-18)
PROC: 3E033GC Introduction of Other Therapeutic Substance into Peripheral Vein, Percutaneous Approach (ICD-10-PCS; 2017-07-18)
DX: E11.43 Type 2 diabetes mellitus with diabetic autonomic (poly)neuropathy (principal); K31.84 Gastroparesis; Z79.84 Long term (current) use of oral hypoglycemic drugs; I25.2 Old myocardial infarction; I25.10 Atherosclerotic heart disease of native coronary artery without angina pectoris; I10 Essential (primary) hypertension; Z95.5 Presence of coronary angioplasty implant and graft; I50.9 Heart failure, unspecified; E78.00 Pure hypercholesterolemia, unspecified; Z87.891 Personal history of nicotine dependence; Z85.41 Personal history of malignant neoplasm of cervix uteri
CPT/HCPCS: 36415; 80053; 80307; 81003; 81015; 82550; 82553; 83690; 84484; 85025; 93005; 93010; 99283-25

== ENCOUNTER 2017-10-08 19:29 | Inpatient (IN) | payer BC ==
--- NOTE | 2017-10-08 20:28 | PDOC ---
Attending Attestation - Resident Resident Name: Davidson Ramírez - ED Attending Attestation I have performed the following: I have examined & evaluated the patient, The case was reviewed & discussed with the resident, I agree w/resident's findings & plan - HPI HPI: 10/08/17 22:03 Pt comes with abd pain and discomfort from her DM gastroparesis. She appears well. - Physicial Exam PE: 10/08/17 22:04 Agree with resident exam - Medical Decision Making 10/08/17 22:04 Labs will be sent; CBC is normal; Chem hemolyzed and repeated; still pending. Pt will be hydrated and given NON_NARCOTIC pain meds and she will go home when all labs come back normal, as expected.
[2017-10-08] MEDS ORDERED: KETOROLAC TROMETHAMINE 30 MG/1 ML VIAL IVPUSH ONE (20:30)
[2017-10-08] MEDS ORDERED: SODIUM CHLORIDE 0.9% 500 ML INFUS.BAG IV ONE (20:30)
[2017-10-08] MEDS ORDERED: ONDANSETRON 4 MG/2 ML VIAL IVPB ONE (20:30)
[2017-10-08] MEDS ORDERED: ONDANSETRON 4 MG/2 ML VIAL ONE (20:40)
[2017-10-08] MEDS ORDERED: KETOROLAC TROMETHAMINE 30 MG/1 ML VIAL ONE (20:40)
--- NOTE | 2017-10-08 20:46 | PDOC ---
History of Present Illness - General Chief Complaint: Nausea/Vomiting Stated Complaint: STOMACH PAIN Time Seen by Provider: 10/08/17 19:59 - History of Present Illness Initial Comments: 10/08/17 23:16 37-year-old female, history of HTN, DM, CAD status post multiple stents, CABG on Brilinta, on Protonix for possible gastritis, gastroparesis, marijuana use, sent by her pcp Dr. Valencia for GI workup with Dr. Morrell consulting. Patient states that she has had a year long history epigastric pain, nausea and vomiting. along with general stomach issues for the past 5 years. States that for the past week she hasn't been able to ingest anything else than 2% milk. Admits to be using percocet from various sources for the pain as her only relief. 50lbs weight loss since may. 10/08/17 23:21 Past History - Past Medical History Allergies/Adverse Reactions: Allergies Allergy/AdvReac Type Severity Reaction Status Date / Time cephalexin monohydrate Allergy Severe Hives Verified 10/08/17 19:37 [From [facility]] Home Medications: Ambulatory Orders Aspirin [Aspirin EC] 81 mg PO DAILY 11/13/15 Metformin HCl 500 mg PO BID 08/25/16 Atorvastatin Ca [Lipitor] 80 mg PO HS #30 tablet 10/09/16 Labetalol HCl [Normodyne -] 200 mg PO BID #60 tablet 10/09/16 Ticagrelor [Brilinta -] 90 mg PO BID tablet 10/09/16 Metoclopramide HCl [Reglan] 10 mg PO TID #270 tablet 02/24/17 Pantoprazole Sodium 40 mg PO DAILY #90 tablet. 02/24/17 Ranolazine [Ranexa -] 500 mg PO BID tab 03/23/17 Escitalopram Oxalate [Lexapro -] mg PO DAILY 10/08/17 Anemia: No Asthma: No Cancer: (cervical ca) Cardiac Disorders: Yes (MD X 6) CVA: No COPD: No CHF: Yes Dementia: No Diabetes: Yes GI Disorders: Yes (GASTROPARESIS) Disorders: No HTN: Yes Hypercholesterolemia: Yes Liver Disease: No Psychiatric Problems: Yes (anxiety) Seizures: No Thyroid Disease: No - Surgical History Abdominal Surgery: No Appendectomy: No Cardiac Surgery: Yes (4 STENTS) Cholecystectomy: No Lung Surgery: No Neurologic Surgery: No Orthopedic Surgery: Yes (ROTATOR CUFF REPAIR) - Reproductive History (#): 5 Para: 0 Cervical CA: Yes Dysfunctional Uterine Bleeding: Yes Ectopic : Yes Endometrial CA: Yes Therapeutic (s) & number: Yes (1) Spontaneous : 4 - Immunization History Immunization Up to Date: Yes - Suicide/Smoking/Psychosocial Hx Smoking Status: Yes (QUIT 3 MONTHS AGO) Smoking History: Former smoker Have you smoked in the past 12 months: No Number of Cigarettes Smoked Daily: 1 If you are a former smoker, when did you quit?: 2015 Information on smoking cessation initiated: No 'Breaking Loose' booklet given: 05/30/17 Hx Alcohol Use: No Drug/Substance Use Hx: No Substance Use Type: None Hx Substance Use Treatment: No Review of Systems - Review of Systems Able to Perform ROS?: Yes Is the patient limited Ukrainian proficient: No Constitutional: Yes: See HPI, Loss of Appetite, Unexplained wgt Loss HEENTM: No: Symptoms Reported Respiratory: No: Symptoms reported Cardiac (ROS): No: Symptoms Reported ABD/GI: Yes: See HPI : No: Symptoms Reported Musculoskeletal: No: Symptoms Reported Integumentary: No: Symptoms Reported Neurological: No: Symptoms reported All Other Systems: Reviewed and Negative *Physical Exam - Vital Signs Last Vital Signs Temp Pulse Resp BP Pulse Ox 98.6 F 74 16 97/57 99 10/08/17 19:40 10/08/17 19:40 10/08/17 19:40 10/08/17 19:40 10/08/17 19:40 - Physical Exam General Appearance: Yes: Nourished, Appropriately Dressed HEENT: positive: EOMI, SESAR, Normal ENT Inspection Neck: negative: Tender Respiratory/Chest: positive: Lungs Clear, Normal Breath Sounds. negative: Chest Tender, Respiratory Distress Cardiovascular: positive: Regular Rhythm, Regular Rate, S1, S2 Gastrointestinal/Abdominal: positive: Normal Bowel Sounds, Tender (epigastric), Flat, Soft Musculoskeletal: positive: Normal Inspection Extremity: positive: Normal Capillary Refill, Normal Inspection, Normal Range of Motion Integumentary: positive: Normal Color, Dry, Warm Neurologic: positive: Fully Oriented, Alert, Normal Mood/Affect ED Treatment Course - LABORATORY CBC & Chemistry Diagram: 10/08/17 21:00 10/08/17 20:30 *DC/Admit/Observation/Transfer Diagnosis at time of Disposition: Diabetic gastroparesis associated with type 2 diabetes mellitus - Discharge Dispostion Admit: Yes - Referrals Referrals: Cherie Edwards MD [Primary Care Provider] - - Patient Instructions - Post Discharge Activity
[2017-10-08 21:14] LABS: BASO % 1.3 % (0-2.0); EOS % 1.4 % (0-4.5); HEMATOCRIT 31.8 % (32.4-45.2); HEMOGLOBIN 10.3 GM/dL (10.7-15.3); LYMPH % 22.5 % (8-40); MCH 23.8 pg (25.7-33.7); MCHC 32.4 g/dl (32.0-36.0); MEAN CELL VOLUME 73.3 fl (80-96); MEAN PLT VOLUME 6.7 fl (7.5-11.1); MONO % 8.9 % (3.8-10.2); NEUT % 65.9 % (42.8-82.8); PLATELET COUNT 413 K/MM3 (134-434); RBC 4.35 M/mm3 (3.60-5.2); RDW 20.3 % (11.6-15.6); WHITE BLOOD COUNT 5.9 K/mm3 (4.0-10.0)
[2017-10-08 21:34] LABS: HCG,QUALITATIVE URINE NEGATIVE
[2017-10-08 21:36] LABS: URINE APPEARANCE CLOUDY; URINE BILIRUBIN NEGATIVE (NEGATIVE); URINE BLOOD NEGATIVE (NEGATIVE); URINE COLOR YELLOW; URINE GLUCOSE (UA) NEGATIVE (NEGATIVE); URINE KETONE NEGATIVE (NEGATIVE); URINE NITRITE NEGATIVE (NEGATIVE); URINE PROTEIN NEGATIVE (NEGATIVE)
[2017-10-08 21:38] LABS: URINE LEUK ESTERASE 1+ (NEGATIVE)
[2017-10-08 21:39] LABS: EPI CELLS MODERATE /HPF (FEW); URINE BACTERIA RARE /hpf (NONE SEEN); URINE HYALINE CAST 6 /lpf; URINE MUCUS MANY
[2017-10-09 00:43] LABS: ALBUMIN 3.3 g/dl (3.4-5.0); ANION GAP 8 (8-16); BILIRUBIN,TOTAL 0.2 mg/dL (0.2-1.0); BLOOD UREA NITROGEN 9 mg/dL (7-18); CALCIUM 8.5 mg/dL (8.5-10.1); CHLORIDE 102 mmol/L (98-107); CO2 27 mmol/L (21-32); GLUCOSE,RANDOM 150 mg/dL (74-106); POTASSIUM 3.3 mmol/L (3.5-5.1); SGOT/AST 10 U/L (15-37); SGPT/ALT 21 U/L (12-78); SODIUM 137 mmol/L (136-145); TOT PROT 6.7 g/dl (6.4-8.2)
[2017-10-09 00:45] LABS: ALK PHOS 47 U/L (45-117)
[2017-10-09] MEDS ORDERED: POTASSIUM CHLORIDE 20 MEQ PREMIX IVPB 100 ML IVPB ONE (00:59)
[2017-10-09] MEDS ORDERED: KCL 10 MEQ IVPB 10 MEQ/100 ML INFUS.BAG IVPB ONE ×2 (01:58→02:46)
[2017-10-09] MEDS ORDERED: HYDROmorphone HCL CARPU-JECT 2 MG/1 ML DISP.SYRIN ONE (01:58)
[2017-10-09] MEDS ORDERED: ONDANSETRON 4 MG/2 ML VIAL ONE (01:58)
[2017-10-09] MEDS: D5-1/2NS+10 MEQ KCL - 10 MEQ/1,000 ML INFUS.BAG IV SCH ×2 (02:00→22:13)
[2017-10-09] MEDS: KCL 10 MEQ IVPB 10 MEQ/100 ML INFUS.BAG IVPB SCH ×2 (02:00→04:30)
[2017-10-09] MEDS: HYDROmorphone HCL CARPU-JECT 2 MG/1 ML DISP.SYRIN IVPB PRN ×4 (02:26→21:44)
[2017-10-09] MEDS: ONDANSETRON 4 MG/2 ML VIAL IVPUSH PRN ×3 (02:27→22:36)
[2017-10-09 03:31] VITALS: BMI 22.4
[2017-10-09] MEDS: METOCLOPRAMIDE HCL 10 MG TABLET (FP) PO SCH ×3 (06:09→17:39)
[2017-10-09] MEDS ORDERED: ESCITALOPRAM OXALATE 10 MG TABLET (FP) ONE (10:14)
[2017-10-09] MEDS ORDERED: PT OWN MED DRAWER 7, Y5N ONE (10:15)
[2017-10-09] MEDS: PANTOPRAZOLE 40 MG TABLET (FP) PO SCH (10:17)
[2017-10-09] MEDS: ASPIRIN COATED 81 MG TABLET.EC PO SCH (10:17)
[2017-10-09] MEDS: RANOLAZINE E.R. 500 MG TABLET (FP) PO SCH ×2 (10:17→21:39)
[2017-10-09] MEDS: ESCITALOPRAM OXALATE 20 MG TABLET (FP) PO SCH (10:18)
[2017-10-09] MEDS: TICAGRELOR 90 MG TABLET PO SCH ×2 (10:18→21:40)
[2017-10-09] MEDS: LABETALOL HCL 200 MG TABLET (FP) PO SCH ×2 (10:20→21:39)
--- NOTE | 2017-10-09 11:09 | CON.GI ---
Consult Consult Specialty:: GI Referred by:: Hospitalist Service Reason for Consultation:: Abdominal pain - History of Present Illness Chief Complaint: Abdominal pain History of Present Illness: 37F admitted for evaluation of abdominal pain. This has been a chronic complaint and has been admitted to [facility] on multiple occasions for this. She describes the abdominal pain as constant, mid abdomen that can be associated with nausea vomiting at times. The pain has impacted her to the point where she says she lost 50 pounds over the last few months. In review [facility] she weighed 150 lbs, currently weighs 152 and was 175 lbs 06/04) and tried to commit suicide by cutting her arms last year. She is a diabetic and states that when she checks her blood glucose at home it is around 160. She follows with Dr. Sifuentes who last performed upper endoscopy 03/04: it was unremarkable. Solid gastric emptying study was normal at that time as well. More recently she describes having had an EGD at [facility] 07/04 that revealed fatty liver,performed by Dr. Thomas that was unrevealing. Other work-up has included abdominal US 10/04 that revealed fatty liver, CTA of chest 11/02 that was negative, contrast CT of abd/pelvis 11/01 that was unrevealing and an EGD performed by Dr. Sifuentes 11/01 that was unrevealing. UGIS/SBS was unrevealing in 2012. She denies rectal bleeding, melena but does have chronic constipation , having 1 BM weekly. She was scheduled to have a colonoscopy 09/03 but this was not performed. Urine toxicology has been consistently + for marijuana. - Past Medical History Cardio/Vascular: Yes: CAD, CHF, HTN, Hyperlipdemia, [place] Pulmonary: Yes: Bronchitis Gastrointestinal: Yes: Other (diabetic gastroparesis, chronic abdominal pain) Renal/: Yes: Renal Inusuff ...LMP: 08/21/16 Psych: Yes: Anxiety, Panic Musculoskeletal: Yes: Other (rt shoulder pain) Endocrine: Yes: Diabetes Mellitus - Past Surgical History Past Surgical History: Yes: - Alcohol/Substance Use Hx Alcohol Use: No History of Substance Use: reports: Marijuana - Smoking History Smoking history: Former smoker Have you smoked in the past 12 months: No Aproximately how many cigarettes per day: 1 If you are a former smoker, when did you quit?: 2015 - Social History Usual Living Arrangement: With Parent ADL: Independent Place of : [place] History of Recent Travel: No Home Medications - Allergies Allergies/Adverse Reactions: Allergies Allergy/AdvReac Type Severity Reaction Status Date / Time cephalexin monohydrate Allergy Severe Hives Verified 10/08/17 19:37 [From Keflex] - Home Medications Home Medications: Ambulatory Orders Aspirin [Aspirin EC] 81 mg PO DAILY 11/13/15 Metformin HCl 500 mg PO BID 08/25/16 Atorvastatin Ca [Lipitor] 80 mg PO HS #30 tablet 10/09/16 Labetalol HCl [Normodyne -] 200 mg PO BID #60 tablet 10/09/16 Ticagrelor [Brilinta -] 90 mg PO BID tablet 10/09/16 Metoclopramide HCl [Reglan] 10 mg PO TID #270 tablet 02/24/17 Pantoprazole Sodium 40 mg PO DAILY #90 tablet. 02/24/17 Ranolazine [Ranexa -] 500 mg PO BID tab 03/23/17 Escitalopram Oxalate [Lexapro -] mg PO DAILY 10/08/17 Family Disease History - Family Disease History Family Disease History: Diabetes: Mother (htn) Other Family History: No fam h/o colorectal cancer or other GI malignancy Review of Systems - Review of Systems Constitutional: reports: Loss of Appetite, Unintentional Wgt. Loss. denies: Chills, Fever Cardiovascular: denies: Chest Pain Respiratory: denies: Cough Gastrointestinal: reports: Abdominal Pain, Constipation, Nausea. denies: Bloating, Diarrhea, Dysphagia, Melena, Rectal Bleeding, Vomiting Physical Exam-GI Vital Signs: Vital Signs Temperature 98.4 F 10/09/17 06:00 Pulse Rate 62 10/09/17 06:00 Respiratory Rate 20 10/09/17 06:00 Blood Pressure 118/66 10/09/17 06:00 O2 Sat by Pulse Oximetry (%) 98 10/09/17 03:35 Constitutional: Yes: Calm Eyes: No: Sclera Icterus Cardiovascular: Yes: Regular Rate and Rhythm Respiratory: Yes: CTA Bilaterally Gastrointestinal Inspection: Yes: Scars (pelvic) ...Auscultate: Yes: Normoactive Bowel Sounds ...Palpate: Yes: Soft, Tenderness (mild TTP mid abdomen). No: Firm/Rigid, Guarding, Splenomegaly, Tenderness, Rebound ...Percussion: No: Tympanitic ...Rectal Exam: Yes: Other (No external lesions, copious hard stool in rectal vault, guaiac negative) Edema: No (No LE edema, + scars) Neurological: Yes: Alert, Oriented Labs: CBC, BMP 10/08/17 21:00 10/08/17 23:30 Hepatic Panel Total Bilirubin 0.2 mg/dL (0.2-1.0) D 10/08/17 23:30 AST 10 U/L (15-37) L 10/08/17 23:30 ALT 21 U/L (12-78) 10/08/17 23:30 Alkaline Phosphatase 47 U/L (45-117) 10/08/17 23:30 Albumin 3.3 g/dl (3.4-5.0) L 10/08/17 23:30 Problem List - Problems (1) Abdominal pain Assessment/Plan: Chronic abdominal pain: Continued GI work-up at this time including: CT of the abdomen and pelvis with PO/IV contrast Colonoscopy 10/11 Urine tox Advised avoidance of marijuana Code(s): R10.9 - UNSPECIFIED ABDOMINAL PAIN Qualifiers: Abdominal location: generalized Qualified Code(s): R10.84 - Generalized abdominal pain
--- NOTE | 2017-10-09 12:03 | HP ---
Admitting History and Physical - Primary Care Physician PCP: Ashleigh Valencia - Admission Chief Complaint: Extreme stomach pain History of Present Illness: Ms Berry is a pleasant 37 year old female who came in with severe abdominal pain and 50lb weight loss. She states the abdominal pain began in 2012. At that time it was pain associated with nausea and vomiting. She was seen by Dr Sifuentes and GES showed gastroparesis. She was treated for this and while the vomiting resolved, she still had severe abdominal pain. She says the pain is epigastric in nature and present every day. It is sharp and mostly constant. She says it is a 10/10. She is anorexic secondary to the pain and lost 50lbs. She says the pain is so severe that her life revolves around this, she obtains narcotics to try to control the pain. She says the pain makes her so miserable that she has attempted suicide twice in the past, currently is not suicidal. She is followed by a psychiatrist as an outpatient. She denies fevers, chills, lightheadedness, dizziness, passing out, chest pain, shortness of breath, diarrhea, constipation, pain or difficulty urinating, or swelling. She is very tearful on exam, saying the pain is ruining her life. History Source: Patient Limitations to Obtaining History: No Limitations - Past Medical History Cardiovascular: Yes: CAD, CHF, HTN, Hyperlipdemia, [place] Pulmonary: Yes: Bronchitis Gastrointestinal: Yes: Other (diabetic gastroparesis, chronic abdominal pain) Renal/: Yes: Renal Inusuff ...LMP: 08/21/16 Psych: Yes: Anxiety, Panic Musculoskeletal: Yes: Other (rt shoulder pain) Endocrine: Yes: Diabetes Mellitus - Past Surgical History Past Surgical History: Yes: , Stent - Smoking History Smoking history: Former smoker Have you smoked in the past 12 months: No Aproximately how many cigarettes per day: 1 If you are a former smoker, when did you quit?: 2015 - Alcohol/Substance Use Hx Alcohol Use: No History of Substance Use: reports: Marijuana, Prescription Date of Last Use: 10/07/17 (ecstasy) - Social History ADL: Independent History of Recent Travel: No Home Medications - Allergies Allergies/Adverse Reactions: Allergies Allergy/AdvReac Type Severity Reaction Status Date / Time cephalexin monohydrate Allergy Severe Hives Verified 10/08/17 19:37 [From Keflex] - Home Medications Home Medications: Ambulatory Orders Aspirin [Aspirin EC] 81 mg PO DAILY 11/13/15 Metformin HCl 500 mg PO BID 08/25/16 Atorvastatin Ca [Lipitor] 80 mg PO HS #30 tablet 10/09/16 Labetalol HCl [Normodyne -] 200 mg PO BID #60 tablet 10/09/16 Ticagrelor [Brilinta -] 90 mg PO BID tablet 10/09/16 Metoclopramide HCl [Reglan] 10 mg PO TID #270 tablet 02/24/17 Pantoprazole Sodium 40 mg PO DAILY #90 tablet. 02/24/17 Ranolazine [Ranexa -] 500 mg PO BID tab 03/23/17 Escitalopram Oxalate [Lexapro -] mg PO DAILY 10/08/17 Family Disease History - Family Disease History Family Disease History: Diabetes: Mother (htn) Other Family History: No fam h/o colorectal cancer or other GI malignancy Review of Systems Findings/Remarks: Full review of systems obtained, as per HPI and otherwise negative Physical Examination Vital Signs: Vital Signs Temperature 36.4 C L 10/09/17 09:25 Pulse Rate 56 L 10/09/17 09:25 Respiratory Rate 16 10/09/17 09:25 Blood Pressure 118/75 10/09/17 09:25 O2 Sat by Pulse Oximetry (%) 100 10/09/17 09:00 Constitutional: Yes: Well Nourished, No Distress, Calm Eyes: Yes: Conjunctiva Clear, EOM Intact, PERRL HENT: Yes: Atraumatic, Normocephalic Cardiovascular: Yes: Regular Rate and Rhythm. No: Gallop, Murmur, Rub Respiratory: Yes: Regular, CTA Bilaterally. No: Rales, Rhonchi, Wheezes Gastrointestinal: Yes: Normal Bowel Sounds, Soft, Tenderness. No: Distention Extremities: Yes: WNL Edema: No Labs: CBC, BMP 10/08/17 21:00 10/08/17 23:30 Imaging - Results Cat Scan: Pending Problem List - Problems (1) Abdominal pain Assessment/Plan: -chronic and debilitating -GI consulted and note reviewed -CT scan pending, planning for colonoscopy -discussed with patient we may not find cause of abdominal pain Code(s): R10.9 - UNSPECIFIED ABDOMINAL PAIN Qualifiers: Abdominal location: generalized Qualified Code(s): R10.84 - Generalized abdominal pain (2) Anxiety Assessment/Plan: -continue lexapro Code(s): F41.9 - ANXIETY DISORDER, UNSPECIFIED (3) Chronic diastolic (congestive) heart failure Assessment/Plan: -not in exacerbation -monitor while on IVF Code(s): I50.32 - CHRONIC DIASTOLIC (CONGESTIVE) HEART FAILURE (4) Cannabis abuse Assessment/Plan: -also with opioid use and states tried ecstasy 3 weeks ago -patient says will not use ecstasy again -counselled against marijuana use and using non-prescribed drugs Code(s): F12.10 - CANNABIS ABUSE, UNCOMPLICATED (5) Coronary artery disease Assessment/Plan: -quiescent -continue home regimen Code(s): I25.10 - ATHSCL HEART DISEASE OF [place] CORONARY ARTERY W/O ANG PCTRS Qualifiers: Coronary Disease-Associated Artery/Lesion type: [place] artery [place] vs. transplanted heart: [place] heart Associated angina: with unspecified angina Qualified Code(s): I25.119 - Atherosclerotic heart disease of [place] coronary artery with unspecified angina pectoris (6) Diabetes mellitus Assessment/Plan: -FSBS and SSI -diabetic diet when can tolerate Code(s): E11.9 - TYPE 2 DIABETES MELLITUS WITHOUT COMPLICATIONS Qualifiers: Diabetes mellitus type: type 2 Diabetes mellitus complication status: with kidney complications Diabetes mellitus complication detail: with chronic kidney disease Chronic kidney disease stage: stage 3 (moderate) Qualified Code(s): E11.22 - Type 2 diabetes mellitus with diabetic chronic kidney disease (7) Hyperlipidemia Assessment/Plan: -continue statin Code(s): E78.5 - HYPERLIPIDEMIA, UNSPECIFIED Qualifiers: Hyperlipidemia type: unspecified Qualified Code(s): E78.5 - Hyperlipidemia , unspecified (8) Hypertension Assessment/Plan: -well controlled -continue home regimen Code(s): I10 - ESSENTIAL (PRIMARY) HYPERTENSION Qualifiers: Hypertension type: essential hypertension Qualified Code(s): I10 - Essential (primary) hypertension
[2017-10-09] MEDS: MINERAL OIL ENEMA 133 ML ENEMA PR ONE ×2 (13:21→17:38)
[2017-10-09] MEDS: INSULIN SLIDING SCALE (NOVOLOG) 1 VIAL SQ SCH (17:37)
[2017-10-09] MEDS: ATORVASTATIN CA 80 MG TABLET (FP) PO SCH (21:39)
[2017-10-10] MEDS: D5-1/2NS+10 MEQ KCL - 10 MEQ/1,000 ML INFUS.BAG IV SCH ×2 (01:00→06:30)
[2017-10-10] MEDS ORDERED: PT OWN MED DRAWER 7, Y5N ONE ×2 (05:31→09:34)
[2017-10-10] MEDS ORDERED: COSYNTROPIN 0.25 MG VIAL IM ONE (06:00)
[2017-10-10 06:01] LABS: COCAINE, UR NEGATIVE ng/ml (CUTOFF=300); METHADONE, UR NEGATIVE ng/ml (CUTOFF=300); PHENCYCLIDINE,URINE NEGATIVE ng/ml (CUTOFF=25); URINE BARBITURATES NEGATIVE ng/ml (CUTOFF=200); URINE BENZODIAZEPINES NEGATIVE ng/ml (CUTOFF=200)
[2017-10-10 06:03] LABS: OPIATES, URI POSITIVE ng/ml (CUTOFF=300); URINE AMPHETAMINES POSITIVE ng/ml (CUTOFF=500)
[2017-10-10] MEDS: HYDROmorphone HCL CARPU-JECT 2 MG/1 ML DISP.SYRIN IVPB PRN ×3 (06:17→22:29)
[2017-10-10] MEDS ORDERED: INSULIN (NOVOLOG) ASPART 100 UNITS/ML 10ML VIAL ONE (06:27)
[2017-10-10] MEDS: METOCLOPRAMIDE HCL 10 MG TABLET (FP) PO SCH ×3 (06:29→16:48)
[2017-10-10] MEDS: INSULIN SLIDING SCALE (NOVOLOG) 1 VIAL SQ SCH ×2 (06:29→16:48)
[2017-10-10 08:36] LABS: BASO % 0.3 % (0-2.0); EOS % 3.5 % (0-4.5); HEMATOCRIT 30.2 % (32.4-45.2); HEMOGLOBIN 9.7 GM/dL (10.7-15.3); LYMPH % 15.9 % (8-40); MCH 23.8 pg (25.7-33.7); MCHC 32.2 g/dl (32.0-36.0); MEAN CELL VOLUME 74.1 fl (80-96); MEAN PLT VOLUME 6.6 fl (7.5-11.1); MONO % 9.1 % (3.8-10.2); NEUT % 71.2 % (42.8-82.8); PLATELET COUNT 414 K/MM3 (134-434); RBC 4.07 M/mm3 (3.60-5.2); RDW 21.1 % (11.6-15.6); WHITE BLOOD COUNT 5.4 K/mm3 (4.0-10.0)
[2017-10-10 09:02] LABS: ANION GAP 8 (8-16); CALCIUM 8.8 mg/dL (8.5-10.1); CHLORIDE 103 mmol/L (98-107); CO2 26 mmol/L (21-32); POTASSIUM 3.9 mmol/L (3.5-5.1); SODIUM 137 mmol/L (136-145)
[2017-10-10 09:04] LABS: ADD RBC MORPHOLOGY YES
[2017-10-10 09:15] LABS: BLOOD UREA NITROGEN 5 mg/dL (7-18); CREATININE 0.8 mg/dL (0.55-1.02); GLUCOSE,RANDOM 62 mg/dL (74-106)
[2017-10-10] MEDS ORDERED: ESCITALOPRAM OXALATE 10 MG TABLET (FP) ONE (09:34)
[2017-10-10] MEDS: RANOLAZINE E.R. 500 MG TABLET (FP) PO SCH ×2 (09:36→21:11)
[2017-10-10] MEDS: ESCITALOPRAM OXALATE 20 MG TABLET (FP) PO SCH (09:37)
[2017-10-10] MEDS: PANTOPRAZOLE 40 MG TABLET (FP) PO SCH (09:37)
[2017-10-10] MEDS: LABETALOL HCL 200 MG TABLET (FP) PO SCH ×2 (09:37→21:12)
--- NOTE | 2017-10-10 11:20 | CON.CARD ---
Cardiology Consult (text) - Consultation Consultation Note: Cardiology Consult Dictated IMP: CAD s/p MIs PTCA on distal LAD, most recently NSTEMI with STAR OM 03/2017 ([place]) DM Chronic nausea, vomiting and abdominal pain with nl gastic emptying study and previous NL EGD Now admitted with ongoing chronic N/V, abdominal pain and weight loss. Nonspecific ST changes, prolonged QTc in setting HypoK+ REC: 1. For EGD/Colonoscopy: Should be off Brilinta for at least 3-5 days prior to endoscopy, d/w Dr. Whelan 2. Re: NSST changes, Prolonged QT: likely due to low K+, opiates K+ now repleted. Repeat ECG, Cardiac enzymes and echo. Minimize opiates.
--- NOTE | 2017-10-10 11:22 | PN ---
Progress Note (short form) - Note Progress Note: Patient on Brilinta. Needs to be held 3-5 days prior to perocedures. Per Dr. Ng, Monday would be optimal. Cancelling EGD/Colon for tomorrow. Left adnexal mass seen on yesterday's CT scan not seen on previous study. Will need director of cath lab follolw-up Problem List - Problems (1) Abdominal pain Code(s): R10.9 - UNSPECIFIED ABDOMINAL PAIN Qualifiers: Abdominal location: generalized Qualified Code(s): R10.84 - Generalized abdominal pain
[2017-10-10] MEDS: TICAGRELOR 90 MG TABLET PO SCH (11:32)
[2017-10-10 11:49] LABS: ANISOCYTOSIS 2+; MACROCYTOSIS 1+; PLATELET ESTIMATE NORMAL; TARGET CELLS 2+
[2017-10-10] MEDS: ASPIRIN COATED 81 MG TABLET.EC PO SCH (11:56)
--- NOTE | 2017-10-10 12:06 | CONS ---
CARDIOLOGY CONSULTATION DATE OF CONSULTATION: 10/10/2017 REQUESTING PHYSICIAN: Huey Vargas MD REASON FOR CONSULTATION: Cardiac evaluation prior to upper and lower endoscopy. HISTORY OF PRESENT ILLNESS: The patient is known to me from previous hospitalizations and from office practice. She is a 37-year-old female with coronary artery disease status post multiple MIs, PTCA of the distal LAD, and most recently, non-STEMI in March, status post drug-eluting stent to the -1 at [place]. She has chronic nausea, vomiting, and abdominal pain which has been going on for several years of undetermined etiology. It was previously thought to be due to gastroparesis but had a normal gastric emptying study. Previous EGDs have also been normal. She is now admitted for ongoing abdominal pain, nausea, vomiting, inability to tolerate p.o., and weight loss. She was seen by GI and had an abdominal CTA on this admission, which revealed a left adnexal cyst, less likely solid mass; premature atherosclerotic vascular calcifications; and concentric subcutaneous soft tissue stranding suggestive of edema along the abdomen and pelvis, likely due to her chronic abdominal manipulation and rubbing when she feels pain. She denies chest pain, palpitations, syncope, shortness of breath. PAST MEDICAL HISTORY: As above and is also consistent with chronic hypertension, hyperlipidemia, gastroesophageal reflux. ALLERGIES: She is allergic to CEPHALEXIN. HOME MEDICATIONS: Include Brilinta 90 mg b.i.d., Ranexa 500 b.i.d., Protonix 40 daily, Reglan 10 mg t.i.d., metformin 500 b.i.d., labetalol 200 mg b.i.d., Lipitor 80 mg nightly, aspirin 81 mg daily, and Lexapro. FAMILY HISTORY: Noncontributory. SOCIAL HISTORY: She regularly uses marijuana, and urine toxicology is currently also positive for opiates and amphetamines. PHYSICAL EXAMINATION: Vital Signs: Afebrile, 98.1; pulse 64; blood pressure 112/63. General: She is alert, oriented. HEENT: Anicteric. Neck: No carotid bruits. Heart: S1, S2 regular. No murmurs. Chest: Clear. Abdomen: Soft, nontender. No acute abdominal physical exam findings. Extremities: No edema. DIAGNOSTIC DATA: Her admission EKG showed normal sinus rhythm with T-wave inversions laterally and a prolonged QT. This occurred in the setting of hypokalemia. LABORATORY FINDINGS: CBC: White count 5.4, hemoglobin 9.7, platelets 414. Sodium 137. Potassium originally was 3.3, now 3.9 after repletion. Creatinine 0.8. AST and ALT are within the normal range. Alkaline phosphatase is normal. CK and troponin are normal. Lipase was canceled. Urinalysis was significant for leukocyte esterase 1+. Toxicology screen was positive for opiates and amphetamines and marijuana. CT abdomen and pelvis as above. IMPRESSION: 1. Coronary disease status post multiple myocardial infarctions with previous percutaneous transluminal coronary angioplasty of the distal left anterior descending and most recently a [id number] elevation myocardial infarction with drug-eluting stent to the obtuse marginal in March 2017. 2. Diabetes. 3. Chronic nausea, vomiting, and abdominal pain with previous negative workup including gastric emptying study and previous esophagogastroduodenoscopy. Now admitted with ongoing symptoms of abdominal pain, nausea, vomiting, inability to take p.o., and weight loss. Her electrocardiogram on admission showed nonspecific ST-T wave changes with a prolonged QT in the setting of hypokalemia. RECOMMENDATIONS: 1. Regarding EGD and colonoscopy from the cardiac standpoint, she should be off Brilinta for at least 3-5 days prior to upper or lower endoscopy to minimize bleeding. This was discussed with Dr. Whelan. I will discontinue Brilinta today. 2. Regarding her abnormal EKG, she has had fluctuating ST-T changes over the years in the setting of electrolyte disturbances and occasionally in the setting of ischemia. I suspect that the current nonspecific ST-T wave changes are due to electrolyte disturbances, specifically hypokalemia which has now been corrected. The prolonged QT may also be due to the use of opiates, which were found to be positive in her urine. I recommend repeating the ECG, cycling the cardiac enzymes, and repeating an echocardiogram to assure that LV function is normal. Minimize the use of opiates for control of her chronic abdominal pain. Aspirin 81 mg daily can be continued prior to endoscopy/colonoscopy - this was confirmed with Dr. Whelan. Thank you for the consultation. DANNIELLE MARSH M.D. [id number]
[2017-10-10] MEDS ORDERED: BISACODYL 5 MG TABLET.DR (FP) PO ONE (15:00)
--- NOTE | 2017-10-10 15:53 | PN ---
Progress Note, Physician Chief Complaint: Ms Berry says she is still having pain but is willing to try to eat. No cp or sob. Need to hold brilinta for colonoscopy. - Current Medication List Current Medications: Active Medications Aspirin (Ecotrin -) 81 mg PO DAILY [facility] Last Admin: 10/10/17 11:56 Dose: 81 mg Atorvastatin Calcium (Lipitor -) 80 mg PO HS [facility] Last Admin: 10/09/17 21:39 Dose: 80 mg Cosyntropin (Cortrosyn -) 0.25 mg IM ONCE ONE Stop: 10/11/17 08:01 Escitalopram Oxalate (Lexapro -) 20 mg PO DAILY [facility] Last Admin: 10/10/17 09:37 Dose: 20 mg Hydromorphone HCl (Dilaudid Injection -) 1 mg IVPB Q6H PRN PRN Reason: PAIN Last Admin: 10/10/17 13:22 Dose: 1 mg Potassium Chloride/Dextrose/Sod Cl (D5-1/2ns+10 Meq Kcl -) 10 meq in 1,000 mls @ 100 mls/hr IV ASDIR [facility] Last Admin: 10/10/17 06:30 Dose: 100 mls/hr Insulin Aspart (Novolog Vial Sliding Scale -) 0 vial SQ BIDAC [facility] PRN Reason: Protocol Last Admin: 10/10/17 06:29 Dose: 2 units Labetalol HCl (Normodyne -) 200 mg PO BID [facility] Last Admin: 10/10/17 09:37 Dose: 200 mg Metoclopramide HCl (Reglan -) 10 mg PO TIDAC [facility] Last Admin: 10/10/17 11:56 Dose: 10 mg Ondansetron HCl (Zofran Injection) 4 mg IVPUSH Q6H PRN PRN Reason: NAUSEA Last Admin: 10/09/17 22:36 Dose: 4 mg Pantoprazole Sodium (Protonix -) 40 mg PO DAILY [facility] Last Admin: 10/10/17 09:37 Dose: 40 mg Ranolazine (Ranexa -) 500 mg PO BID [facility] Last Admin: 10/10/17 09:36 Dose: 500 mg - Objective Vital Signs: Vital Signs Temperature 36.7 C 10/10/17 15:02 Pulse Rate 79 10/10/17 15:02 Respiratory Rate 18 10/10/17 15:02 Blood Pressure 151/70 10/10/17 15:02 O2 Sat by Pulse Oximetry (%) 100 10/10/17 09:00 Constitutional: Yes: Well Nourished, No Distress, Calm Cardiovascular: Yes: Regular Rate and Rhythm. No: Gallop, Murmur, Rub Respiratory: Yes: Regular, CTA Bilaterally. No: Rales, Rhonchi, Wheezes Gastrointestinal: Yes: Normal Bowel Sounds, Soft, Tenderness. No: Distention Extremities: Yes: WNL Edema: No Labs: CBC, BMP 10/10/17 07:00 10/10/17 07:00 Problem List - Problems (1) Abdominal pain Code(s): R10.9 - UNSPECIFIED ABDOMINAL PAIN Qualifiers: Abdominal location: generalized Qualified Code(s): R10.84 - Generalized abdominal pain (2) Anxiety Code(s): F41.9 - ANXIETY DISORDER, UNSPECIFIED (3) Chronic diastolic (congestive) heart failure Code(s): I50.32 - CHRONIC DIASTOLIC (CONGESTIVE) HEART FAILURE (4) Cannabis abuse Code(s): F12.10 - CANNABIS ABUSE, UNCOMPLICATED (5) Coronary artery disease Code(s): I25.10 - ATHSCL HEART DISEASE OF [place] CORONARY ARTERY W/O ANG PCTRS Qualifiers: Coronary Disease-Associated Artery/Lesion type: [place] artery [place] vs. transplanted heart: [place] heart Associated angina: with unspecified angina Qualified Code(s): I25.119 - Atherosclerotic heart disease of [place] coronary artery with unspecified angina pectoris (6) Diabetes mellitus Code(s): E11.9 - TYPE 2 DIABETES MELLITUS WITHOUT COMPLICATIONS Qualifiers: Diabetes mellitus type: type 2 Diabetes mellitus complication status: with kidney complications Diabetes mellitus complication detail: with chronic kidney disease Chronic kidney disease stage: stage 3 (moderate) (7) Hyperlipidemia Code(s): E78.5 - HYPERLIPIDEMIA, UNSPECIFIED Qualifiers: Hyperlipidemia type: unspecified Qualified Code(s): E78.5 - Hyperlipidemia , unspecified (8) Hypertension Code(s): I10 - ESSENTIAL (PRIMARY) HYPERTENSION Qualifiers: Hypertension type: essential hypertension Qualified Code(s): I10 - Essential (primary) hypertension Assessment/Plan (1) Abdominal pain Assessment/Plan: -CT scan A/P reviewed -adnexal cyst noted -not cause of pain, but will obtain transvaginal ultrasound for further evaluation -ESR and CRP normal, await rheumatology input -case d/w GI, planning for colonoscopy Code(s): R10.9 - UNSPECIFIED ABDOMINAL PAIN Qualifiers: Abdominal location: generalized Qualified Code(s): R10.84 - Generalized abdominal pain (2) Anxiety Assessment/Plan: -continue lexapro Code(s): F41.9 - ANXIETY DISORDER, UNSPECIFIED (3) Chronic diastolic (congestive) heart failure Assessment/Plan: -not in exacerbation -monitor while on IVF Code(s): I50.32 - CHRONIC DIASTOLIC (CONGESTIVE) HEART FAILURE (4) Cannabis abuse Assessment/Plan: -also with opioid use and states tried ecstasy 3 weeks ago -patient says will not use ecstasy again -counselled against marijuana use and using non-prescribed drugs Code(s): F12.10 - CANNABIS ABUSE, UNCOMPLICATED (5) Coronary artery disease Assessment/Plan: -quiescent -continue home regimen Code(s): I25.10 - ATHSCL HEART DISEASE OF [place] CORONARY ARTERY W/O ANG PCTRS Qualifiers: Coronary Disease-Associated Artery/Lesion type: [place] artery [place] vs. transplanted heart: [place] heart Associated angina: with unspecified angina Qualified Code(s): I25.119 - Atherosclerotic heart disease of [place] coronary artery with unspecified angina pectoris (6) Diabetes mellitus Assessment/Plan: -FSBS and SSI -diabetic diet when can tolerate Code(s): E11.9 - TYPE 2 DIABETES MELLITUS WITHOUT COMPLICATIONS Qualifiers: Diabetes mellitus type: type 2 Diabetes mellitus complication status: with kidney complications Diabetes mellitus complication detail: with chronic kidney disease Chronic kidney disease stage: stage 3 (moderate) Qualified Code(s): E11.22 - Type 2 diabetes mellitus with diabetic chronic kidney disease (7) Hyperlipidemia Assessment/Plan: -continue statin Code(s): E78.5 - HYPERLIPIDEMIA, UNSPECIFIED Qualifiers: Hyperlipidemia type: unspecified Qualified Code(s): E78.5 - Hyperlipidemia , unspecified (8) Hypertension Assessment/Plan: -well controlled -continue home regimen Code(s): I10 - ESSENTIAL (PRIMARY) HYPERTENSION Qualifiers: Hypertension type: essential hypertension Qualified Code(s): I10 - Essential (primary) hypertension
[2017-10-10] MEDS ORDERED: PEG3350/SOD SULF,BICARB,CL/KCL 4,000 ML SOLN.RECON PO ONE (16:00)
--- NOTE | 2017-10-10 17:08 | PN ---
GI Progress Note Subjective: GI Note: Pain is unchanged. EGD and colonosocpy has been rescheduled for 10/16 to allow for Brilinta to wear off as per Dr Ng's recommendation. I have informed Jesusita of the potential risks of perforation and hemorrhage among others that could culminate in the need for surgery and transfusions associated with EGD and colonoscopy. She has signed an informed consent. I have also infromed her of the need for a CT enterography to investigate the small bowel and for two serial 24 hour urine collections for immunoelectrophoresis to exclude increased immunoglobulins that would suggest amyloidosis as as as for 5' HIAA to exclude carcinoid tumors. A search for porphyrins will also be undertaken. - Objective Vital Signs: Vital Signs Temperature 98.0 F 10/10/17 15:02 Pulse Rate 79 10/10/17 15:02 Respiratory Rate 18 10/10/17 15:02 Blood Pressure 151/70 10/10/17 15:02 O2 Sat by Pulse Oximetry (%) 100 10/10/17 09:00 CBC,CMP WBC 5.4 K/mm3 (4.0-10.0) 10/10/17 07:00 RBC 4.07 M/mm3 (3.60-5.2) 10/10/17 07:00 Hgb 9.7 GM/dL (10.7-15.3) L 10/10/17 07:00 Hct 30.2 % (32.4-45.2) L 10/10/17 07:00 MCV 74.1 fl (80-96) L 10/10/17 07:00 MCH 23.8 pg (25.7-33.7) L 10/10/17 07:00 MCHC 32.2 g/dl (32.0-36.0) 10/10/17 07:00 RDW 21.1 % (11.6-15.6) H 10/10/17 07:00 Plt Count 414 K/MM3 (134-434) 10/10/17 07:00 MPV 6.6 fl (7.5-11.1) L 10/10/17 07:00 Neutrophils % 71.2 % (42.8-82.8) 10/10/17 07:00 Lymphocytes % 15.9 % (8-40) D 10/10/17 07:00 Monocytes % 9.1 % (3.8-10.2) 10/10/17 07:00 Eosinophils % 3.5 % (0-4.5) D 10/10/17 07:00 Basophils % 0.3 % (0-2.0) 10/10/17 07:00 Hypochromia 0 10/10/17 07:00 Platelet Estimate Normal 10/10/17 07:00 Polychromasia 1+ 10/10/17 07:00 Poikilocytosis 0 10/10/17 07:00 Anisocytosis 2+ 10/10/17 07:00 Microcytosis 1+ 10/10/17 07:00 Macrocytosis 1+ 10/10/17 07:00 Target Cells 2+ 10/10/17 07:00 Schistocytes 1+ 10/10/17 07:00 ESR 19 mm/hr (0-20) 10/10/17 07:00 Sodium 137 mmol/L (136-145) 10/10/17 07:00 Potassium 3.9 mmol/L (3.5-5.1) 10/10/17 07:00 Chloride 103 mmol/L (98-107) 10/10/17 07:00 Carbon Dioxide 26 mmol/L (21-32) 10/10/17 07:00 Anion Gap 8 (8-16) 10/10/17 07:00 BUN 5 mg/dL (7-18) L 10/10/17 07:00 Creatinine 0.8 mg/dL (0.55-1.02) 10/10/17 07:00 Creat Clearance w eGFR > 60 (>60) 10/08/17 23:30 POC Glucometer 186 UNITS (80-120) 10/10/17 16:45 Random Glucose 62 mg/dL (74-106) L 10/10/17 07:00 Hemoglobin A1c % 8.1 % (4.8-6.0) H 10/10/17 07:00 Calcium 8.8 mg/dL (8.5-10.1) 10/10/17 07:00 Magnesium 2.0 mg/dL (1.8-2.4) 10/09/17 13:35 Total Bilirubin 0.2 mg/dL (0.2-1.0) D 10/08/17 23:30 AST 10 U/L (15-37) L 10/08/17 23:30 ALT 21 U/L (12-78) 10/08/17 23:30 Alkaline Phosphatase 47 U/L (45-117) 10/08/17 23:30 Creatine Kinase 106 IU/L (26-192) 10/10/17 07:00 Creatine Kinase Index 1.0 % (0.0-5.0) 10/08/17 23:30 CK-MB (CK-2) 1.584 ng/mL (0.5-3.6) 10/08/17 23:30 Troponin I < 0.02 ng/ml (0.00-0.05) 10/10/17 07:00 C-Reactive Protein 1.0 MG/DL (0.00-0.3) H 10/10/17 07:00 Total Protein 6.7 g/dl (6.4-8.2) 10/08/17 23:30 Albumin 3.3 g/dl (3.4-5.0) L 10/08/17 23:30 Lipase Cancelled 10/08/17 21:30 Current Medications Generic Name Dose Route Start Last Admin Trade Name Freq PRN Reason Stop Dose Admin Aspirin 81 mg 10/09/17 10:00 10/10/17 11:56 Ecotrin - PO 81 mg DAILY NAKIA Administration Atorvastatin Calcium 80 mg 10/09/17 22:00 10/09/17 21:39 Lipitor - PO 80 mg HS NAKIA Administration Cosyntropin 0.25 mg 10/11/17 08:00 Cortrosyn - IM 10/11/17 08:01 ONCE ONE Escitalopram Oxalate 20 mg 10/09/17 10:00 10/10/17 09:37 Lexapro - PO 20 mg DAILY NAKIA Administration Hydromorphone HCl 1 mg 10/09/17 00:59 10/10/17 13:22 Dilaudid Injection - IVPB 1 mg Q6H PRN Administration PAIN Potassium Chloride/Dextrose/Sod Cl 10 meq in 1,000 mls @ 100 mls/hr 10/09/17 01:00 10/10/17 06:30 D5-1/2ns+10 Meq Kcl - IV 100 mls/hr ASDIR NAKIA Administration Insulin Aspart 0 vial 10/09/17 16:30 10/10/17 16:48 Novolog Vial Sliding Scale - SQ 2 units BIDAC NAKIA Administration Protocol Labetalol HCl 200 mg 10/09/17 10:00 10/10/17 09:37 Normodyne - PO 200 mg BID NAKIA Administration Metoclopramide HCl 10 mg 10/09/17 07:00 10/10/17 16:48 Reglan - PO 10 mg TIDAC NAKIA Administration Ondansetron HCl 4 mg 10/09/17 00:59 10/09/17 22:36 Zofran Injection IVPUSH 4 mg Q6H PRN Administration NAUSEA Pantoprazole Sodium 40 mg 10/09/17 10:00 10/10/17 09:37 Protonix - PO 40 mg DAILY NAKIA Administration Ranolazine 500 mg 10/09/17 10:00 10/10/17 09:36 Ranexa - PO 500 mg BID NAKIA Administration Laboratory Tests 10/08/17 10/10/17 23:30 07:00 Total Bilirubin 0.2 D AST 10 L ALT 21 Creatine Kinase 150 C-Reactive Protein 1.0 H Constitutional: Calm Eyes: Yes: Conjunctiva Clear HENT: Yes: Normocephalic Neck: Yes: Supple Cardiovascular: Yes: Regular Rate and Rhythm Respiratory: Yes: CTA Bilaterally ...Auscultate: Yes: Normoactive Bowel Sounds ...Palpate: Yes: Soft, Other (nontender) Labs: CBC, BMP 10/10/17 07:00 10/10/17 07:00 Problem List - Problems (1) Weight loss Code(s): R63.4 - ABNORMAL WEIGHT LOSS (2) Abdominal pain Assessment/Plan: Workup for abdominal pain as entered in opening of note. Will also order stool elastase to exclude pancreatic insufficiency. I discussed the case with Dr Valencia yesterday and with Dr Vargas today. Code(s): R10.9 - UNSPECIFIED ABDOMINAL PAIN Qualifiers: Abdominal location: generalized Qualified Code(s): R10.84 - Generalized abdominal pain
--- NOTE | 2017-10-10 17:36 | CON.PSY ---
Psychiatry Consult Chief Complaint: I am not anorexic, its insane they think that. I see for anxiety, I am on Lexapro. I have been losing weight but I dont make myself throw up. I am not suicidal either. I want to live. Symptoms: reports: Sleep Disturbance, Somatic Symptoms - Previous Psychiatric Treatment Outpatient: Less than 6 mos ago Inpatient: None - Previous Substance Abuse Treatment Outpatient: None Inpatient: None - Reason for Previous Treatment Reason for Previous Treatment: Major Depression, Anxiety or Panic Disorder - Current Medications Current Medications: Active Medications Aspirin (Ecotrin -) 81 mg PO DAILY [facility] Last Admin: 10/10/17 11:56 Dose: 81 mg Atorvastatin Calcium (Lipitor -) 80 mg PO HS [facility] Last Admin: 10/09/17 21:39 Dose: 80 mg Cosyntropin (Cortrosyn -) 0.25 mg IM ONCE ONE Stop: 10/11/17 08:01 Escitalopram Oxalate (Lexapro -) 20 mg PO DAILY [facility] Last Admin: 10/10/17 09:37 Dose: 20 mg Hydromorphone HCl (Dilaudid Injection -) 1 mg IVPB Q6H PRN PRN Reason: PAIN Last Admin: 10/10/17 13:22 Dose: 1 mg Potassium Chloride/Dextrose/Sod Cl (D5-1/2ns+10 Meq Kcl -) 10 meq in 1,000 mls @ 100 mls/hr IV ASDIR [facility] Last Admin: 10/10/17 06:30 Dose: 100 mls/hr Insulin Aspart (Novolog Vial Sliding Scale -) 0 vial SQ BIDAC [facility] PRN Reason: Protocol Last Admin: 10/10/17 16:48 Dose: 2 units Labetalol HCl (Normodyne -) 200 mg PO BID [facility] Last Admin: 10/10/17 09:37 Dose: 200 mg Metoclopramide HCl (Reglan -) 10 mg PO TIDAC [facility] Last Admin: 10/10/17 16:48 Dose: 10 mg Ondansetron HCl (Zofran Injection) 4 mg IVPUSH Q6H PRN PRN Reason: NAUSEA Last Admin: 10/09/17 22:36 Dose: 4 mg Pantoprazole Sodium (Protonix -) 40 mg PO DAILY [facility] Last Admin: 10/10/17 09:37 Dose: 40 mg Polyethylene Glycol (Miralax (For Daily Use) -) 17 gm PO BID NAKIA Ranolazine (Ranexa -) 500 mg PO BID [facility] Last Admin: 10/10/17 09:36 Dose: 500 mg - Allergies Allergies: Allergies Allergy/AdvReac Type Severity Reaction Status Date / Time cephalexin monohydrate Allergy Severe Hives Verified 10/08/17 19:37 [From Keflex] - Current Living Status Usual Living Arrangement: Alone - Current Mental Status Evaluation Appearance: Well Groomed Attitude: Cooperative - Affect Affect: Full Range Appropriateness: Appropriate to Content - Mood Mood: Euthymic - Speech/Language Expressive: Coherent - Psychomotor Activity Psychomotor Activity: Normal - Thought Process Thought Process: Intact - Thought Content Hallucinations: Absent Delusions: Absent - Self Perception Self Perception: No Impairment - Cognition Attention: Alert Orientation: Time Memory, Immediate Recall: Intact Memory, Short Term: 3/3 Memory, Remote with Promptin/3 - Concentration Serial Sevens Intact: Yes Simple Calculations Intact: Yes - Abstraction Proverb Interpretation: Intact Judgement: Intact - Insight Insight: Intact - Impulse Control Impulse Control: Good Control - Suicidal Ideation Suicidal Ideation: No - Homicidal Ideation Homicidal Ideation: No Assessment/Plan 1) I do not believe patient has Anorexia. 2) Discussed switching to Remeron and patient agreed.
[2017-10-10] MEDS: MIRTAZAPINE 15 MG TABLET (FP) PO SCH (21:11)
[2017-10-10] MEDS: ATORVASTATIN CA 80 MG TABLET (FP) PO SCH (21:11)
[2017-10-10] MEDS: POLYETHYLENE GLYCOL 3350 119 GM BTL PO SCH (21:12)
[2017-10-10] MEDS: DEXTROSE 5%-0.45% SALINE 1,000 ML with POTASSIUM CHLORIDE 10 MEQ IVPB SCH (22:41)
[2017-10-11] MEDS: METOCLOPRAMIDE HCL 10 MG TABLET (FP) PO SCH ×4 (06:16→17:32)
[2017-10-11] MEDS: INSULIN SLIDING SCALE (NOVOLOG) 1 VIAL SQ SCH ×3 (06:17→17:32)
[2017-10-11] MEDS: ONDANSETRON 4 MG/2 ML VIAL IVPUSH PRN ×2 (06:58→21:44)
[2017-10-11 07:56] LABS: BASO % 0.5 % (0-2.0); EOS % 2.1 % (0-4.5); HEMATOCRIT 26.3 % (32.4-45.2); HEMOGLOBIN 8.5 GM/dL (10.7-15.3); MCH 23.8 pg (25.7-33.7); MCHC 32.2 g/dl (32.0-36.0); MEAN CELL VOLUME 74.1 fl (80-96); MEAN PLT VOLUME 6.5 fl (7.5-11.1); MONO % 12.5 % (3.8-10.2); NEUT % 51.9 % (42.8-82.8); PLATELET COUNT 391 K/MM3 (134-434); RBC 3.55 M/mm3 (3.60-5.2); RDW 21.1 % (11.6-15.6); WHITE BLOOD COUNT 4.5 K/mm3 (4.0-10.0)
--- NOTE | 2017-10-11 07:59 | EKG ---
Test Reason : Blood Pressure : / mmHG Vent. Rate : 058 BPM Atrial Rate : 058 BPM P-R Int : 168 ms QRS Dur : 084 ms QT Int : 472 ms P-R-T Axes : 059 041 043 degrees QTc Int : 463 ms SINUS BRADYCARDIA OTHERWISE NORMAL ECG WHEN COMPARED WITH ECG OF 18-JUL-2017 12:27, VENT. RATE HAS DECREASED BY 48 BPM NON-SPECIFIC CHANGE IN ST SEGMENT IN INFERIOR LEADS Confirmed by KATHRYN STORM, ANDREI ([id number]) on 10/11/2017 7:59:20 AM Referred By: Brian BUSH Confirmed By:ANDREI PERALTA MD
[2017-10-11] MEDS ORDERED: COSYNTROPIN 0.25 MG VIAL IM ONE (08:00)
[2017-10-11] MEDS: HYDROmorphone HCL CARPU-JECT 2 MG/1 ML DISP.SYRIN IVPB PRN ×3 (08:34→21:44)
[2017-10-11 08:43] LABS: CHLORIDE 108 mmol/L (98-107); SODIUM 141 mmol/L (136-145)
[2017-10-11 08:56] LABS: ANION GAP 6 (8-16); BLOOD UREA NITROGEN 8 mg/dL (7-18); CALCIUM 8.5 mg/dL (8.5-10.1); CO2 27 mmol/L (21-32); CREATININE 0.9 mg/dL (0.55-1.02); GLUCOSE,RANDOM 109 mg/dL (74-106); MAGNESIUM 1.9 mg/dL (1.8-2.4); PHOSPHOROUS 3.4 mg/dL (2.5-4.9)
[2017-10-11] MEDS ORDERED: PT OWN MED DRAWER 7, Y5N ONE ×2 (09:21→21:42)
[2017-10-11] MEDS: LABETALOL HCL 200 MG TABLET (FP) PO SCH ×2 (09:25→21:44)
[2017-10-11] MEDS: RANOLAZINE E.R. 500 MG TABLET (FP) PO SCH ×2 (09:25→21:45)
[2017-10-11] MEDS: ESCITALOPRAM OXALATE 10 MG TABLET (FP) PO SCH (09:25)
[2017-10-11] MEDS: ASPIRIN COATED 81 MG TABLET.EC PO SCH (09:25)
[2017-10-11] MEDS: PANTOPRAZOLE 40 MG TABLET (FP) PO SCH (09:25)
--- NOTE | 2017-10-11 09:27 | PN ---
Progress Note, Physician Chief Complaint: No new complaints - Current Medication List Current Medications: Active Medications Aspirin (Ecotrin -) 81 mg PO DAILY [facility] Last Admin: 10/11/17 09:25 Dose: 81 mg Atorvastatin Calcium (Lipitor -) 80 mg PO HS [facility] Last Admin: 10/10/17 21:11 Dose: 80 mg Escitalopram Oxalate (Lexapro -) 10 mg PO DAILY [facility] Last Admin: 10/11/17 09:25 Dose: 10 mg Hydromorphone HCl (Dilaudid Injection -) 1 mg IVPB Q6H PRN PRN Reason: PAIN Last Admin: 10/11/17 08:34 Dose: 1 mg Potassium Chloride 10 meq/ (Dextrose/Sodium Chloride) 1,005 mls @ 100 mls/hr IVPB ASDIR [facility] Last Admin: 10/10/17 22:41 Dose: 100 mls/hr Insulin Aspart (Novolog Vial Sliding Scale -) 0 vial SQ BIDAC [facility] PRN Reason: Protocol Last Admin: 10/11/17 07:00 Dose: Not Given Labetalol HCl (Normodyne -) 200 mg PO BID [facility] Last Admin: 10/11/17 09:25 Dose: 200 mg Metoclopramide HCl (Reglan -) 10 mg PO TIDAC [facility] Last Admin: 10/11/17 06:21 Dose: Not Given Mirtazapine (Remeron -) 15 mg PO HS [facility] Last Admin: 10/10/17 21:11 Dose: 15 mg Ondansetron HCl (Zofran Injection) 4 mg IVPUSH Q6H PRN PRN Reason: NAUSEA Last Admin: 10/11/17 06:58 Dose: 4 mg Pantoprazole Sodium (Protonix -) 40 mg PO DAILY [facility] Last Admin: 10/11/17 09:25 Dose: 40 mg Polyethylene Glycol (Miralax (For Daily Use) -) 17 gm PO BID [facility] Last Admin: 10/10/17 21:12 Dose: 17 gm Ranolazine (Ranexa -) 500 mg PO BID [facility] Last Admin: 10/11/17 09:25 Dose: 500 mg - Objective Vital Signs: Vital Signs Temperature 98 F 10/11/17 09:26 Pulse Rate 67 10/11/17 09:26 Respiratory Rate 18 10/11/17 09:26 Blood Pressure 136/84 10/11/17 09:26 O2 Sat by Pulse Oximetry (%) 100 10/10/17 22:00 Constitutional: Yes: No Distress, Calm Eyes: Yes: Conjunctiva Clear HENT: Yes: Atraumatic Cardiovascular: Yes: Regular Rate and Rhythm Respiratory: Yes: CTA Bilaterally Gastrointestinal: Yes: Soft (non-tender) Edema: No Neurological: Yes: Alert, Oriented ...Motor Strength: WNL Labs: CBC, BMP 10/11/17 07:30 10/11/17 07:30 Laboratory Tests 10/11/17 10/11/17 07:30 07:30 WBC 4.5 Hgb 8.5 L D Plt Count 391 Sodium 141 Potassium 4.0 Creatinine 0.9 - ....Imaging EKG: Pending Assessment/Plan CAD s/p MIs PTCA on distal LAD, most recently NSTEMI with STAR OM 03/2017 ([facility]opher) DM Chronic nausea, vomiting and abdominal pain with nl gastic emptying study and previous NL EGD Now admitted with ongoing chronic N/V, abdominal pain and weight loss. Nonspecific ST changes, prolonged QTc in setting HypoK+ REC: 1. For EGD/Colonoscopy: Should be off Brilinta for at least 3-5 days prior to endoscopy, has been scheduled 10/16. 2. Re: NSST changes, Prolonged QT: likely due to low K+, opiates K+ now repleted. Repeat ECG, Cardiac enzymes negative, echo WNL. Minimize opiates.
[2017-10-11 09:32] LABS: AMYLASE 41 U/L (25-115); LDH 135 U/L (84-246); LIPASE 132 U/L (73-393)
--- NOTE | 2017-10-11 11:21 | EKG ---
Test Reason : Blood Pressure : / mmHG Vent. Rate : 054 BPM Atrial Rate : 054 BPM P-R Int : 162 ms QRS Dur : 084 ms QT Int : 438 ms P-R-T Axes : 012 009 025 degrees QTc Int : 415 ms SINUS BRADYCARDIA OTHERWISE NORMAL ECG WHEN COMPARED WITH ECG OF 10-OCT-2017 11:53, NO SIGNIFICANT CHANGE WAS FOUND Confirmed by ANDREI PERALTA MD ([id number]) on 10/11/2017 11:20:37 AM [facility] Confirmed By:ANDREI PERALTA MD
--- NOTE | 2017-10-11 11:24 | PN ---
Progress Note, Physician Chief Complaint: Ms Berry abdominal pain is unchanged. Denies cp, sob, n/v. - Current Medication List Current Medications: Active Medications Aspirin (Ecotrin -) 81 mg PO DAILY [facility] Last Admin: 10/11/17 09:25 Dose: 81 mg Atorvastatin Calcium (Lipitor -) 80 mg PO HS [facility] Last Admin: 10/10/17 21:11 Dose: 80 mg Escitalopram Oxalate (Lexapro -) 10 mg PO DAILY [facility] Last Admin: 10/11/17 09:25 Dose: 10 mg Hydromorphone HCl (Dilaudid Injection -) 1 mg IVPB Q6H PRN PRN Reason: PAIN Last Admin: 10/11/17 08:34 Dose: 1 mg Potassium Chloride 10 meq/ (Dextrose/Sodium Chloride) 1,005 mls @ 100 mls/hr IVPB ASDIR [facility] Last Admin: 10/10/17 22:41 Dose: 100 mls/hr Insulin Aspart (Novolog Vial Sliding Scale -) 0 vial SQ BIDAC [facility] PRN Reason: Protocol Last Admin: 10/11/17 07:00 Dose: Not Given Labetalol HCl (Normodyne -) 200 mg PO BID [facility] Last Admin: 10/11/17 09:25 Dose: 200 mg Metoclopramide HCl (Reglan -) 10 mg PO TIDAC [facility] Last Admin: 10/11/17 06:21 Dose: Not Given Mirtazapine (Remeron -) 15 mg PO HS [facility] Last Admin: 10/10/17 21:11 Dose: 15 mg Ondansetron HCl (Zofran Injection) 4 mg IVPUSH Q6H PRN PRN Reason: NAUSEA Last Admin: 10/11/17 06:58 Dose: 4 mg Pantoprazole Sodium (Protonix -) 40 mg PO DAILY [facility] Last Admin: 10/11/17 09:25 Dose: 40 mg Polyethylene Glycol (Miralax (For Daily Use) -) 17 gm PO BID [facility] Last Admin: 10/10/17 21:12 Dose: 17 gm Ranolazine (Ranexa -) 500 mg PO BID [facility] Last Admin: 10/11/17 09:25 Dose: 500 mg - Objective Vital Signs: Vital Signs Temperature 36.6 C 10/11/17 09:26 Pulse Rate 67 10/11/17 09:26 Respiratory Rate 18 10/11/17 09:26 Blood Pressure 136/84 10/11/17 09:26 O2 Sat by Pulse Oximetry (%) 100 10/11/17 09:00 Constitutional: Yes: Well Nourished, No Distress, Calm Cardiovascular: Yes: Regular Rate and Rhythm. No: Gallop, Murmur, Rub Respiratory: Yes: Regular, CTA Bilaterally. No: Rales, Rhonchi, Wheezes Gastrointestinal: Yes: Normal Bowel Sounds, Soft. No: Distention, Tenderness Extremities: Yes: WNL Edema: No Labs: CBC, BMP 10/11/17 07:30 10/11/17 07:30 Problem List - Problems (1) Abdominal pain Code(s): R10.9 - UNSPECIFIED ABDOMINAL PAIN Qualifiers: Abdominal location: generalized Qualified Code(s): R10.84 - Generalized abdominal pain (2) Anxiety Code(s): F41.9 - ANXIETY DISORDER, UNSPECIFIED (3) Chronic diastolic (congestive) heart failure Code(s): I50.32 - CHRONIC DIASTOLIC (CONGESTIVE) HEART FAILURE (4) Cannabis abuse Code(s): F12.10 - CANNABIS ABUSE, UNCOMPLICATED (5) Coronary artery disease Code(s): I25.10 - ATHSCL HEART DISEASE OF [place] CORONARY ARTERY W/O ANG PCTRS Qualifiers: Coronary Disease-Associated Artery/Lesion type: [place] artery [place] vs. transplanted heart: [place] heart Associated angina: with unspecified angina Qualified Code(s): I25.119 - Atherosclerotic heart disease of [place] coronary artery with unspecified angina pectoris (6) Diabetes mellitus Code(s): E11.9 - TYPE 2 DIABETES MELLITUS WITHOUT COMPLICATIONS Qualifiers: Diabetes mellitus type: type 2 Diabetes mellitus complication status: with kidney complications Diabetes mellitus complication detail: with chronic kidney disease Chronic kidney disease stage: stage 3 (moderate) (7) Hyperlipidemia Code(s): E78.5 - HYPERLIPIDEMIA, UNSPECIFIED Qualifiers: Hyperlipidemia type: unspecified Qualified Code(s): E78.5 - Hyperlipidemia , unspecified (8) Hypertension Code(s): I10 - ESSENTIAL (PRIMARY) HYPERTENSION Qualifiers: Hypertension type: essential hypertension Qualified Code(s): I10 - Essential (primary) hypertension Assessment/Plan (1) Abdominal pain Assessment/Plan: -transvaginal ultrasound read reviewed -with large left ovary -gynecology consult for evaluation -also noted to have ovarian cysts and fluid -? if pain is from rupturing ovarian cysts -GI folliwng Code(s): R10.9 - UNSPECIFIED ABDOMINAL PAIN Qualifiers: Abdominal location: generalized Qualified Code(s): R10.84 - Generalized abdominal pain (2) Anxiety Assessment/Plan: -continue lexapro Code(s): F41.9 - ANXIETY DISORDER, UNSPECIFIED (3) Chronic diastolic (congestive) heart failure Assessment/Plan: -not in exacerbation -monitor while on IVF Code(s): I50.32 - CHRONIC DIASTOLIC (CONGESTIVE) HEART FAILURE (4) Cannabis abuse Assessment/Plan: -counselled against continued marijuana use Code(s): F12.10 - CANNABIS ABUSE, UNCOMPLICATED (5) Coronary artery disease Assessment/Plan: -quiescent -continue home regimen Code(s): I25.10 - ATHSCL HEART DISEASE OF [place] CORONARY ARTERY W/O ANG PCTRS Qualifiers: Coronary Disease-Associated Artery/Lesion type: [place] artery [place] vs. transplanted heart: [place] heart Associated angina: with unspecified angina Qualified Code(s): I25.119 - Atherosclerotic heart disease of [place] coronary artery with unspecified angina pectoris (6) Diabetes mellitus Assessment/Plan: -FSBS and SSI -diabetic diet Code(s): E11.9 - TYPE 2 DIABETES MELLITUS WITHOUT COMPLICATIONS Qualifiers: Diabetes mellitus type: type 2 Diabetes mellitus complication status: with kidney complications Diabetes mellitus complication detail: with chronic kidney disease Chronic kidney disease stage: stage 3 (moderate) Qualified Code(s): E11.22 - Type 2 diabetes mellitus with diabetic chronic kidney disease (7) Hyperlipidemia Assessment/Plan: -continue statin Code(s): E78.5 - HYPERLIPIDEMIA, UNSPECIFIED Qualifiers: Hyperlipidemia type: unspecified Qualified Code(s): E78.5 - Hyperlipidemia , unspecified (8) Hypertension Assessment/Plan: -well controlled -continue home regimen Code(s): I10 - ESSENTIAL (PRIMARY) HYPERTENSION Qualifiers: Hypertension type: essential hypertension Qualified Code(s): I10 - Essential (primary) hypertension
[2017-10-11] MEDS: POLYETHYLENE GLYCOL 3350 119 GM BTL PO SCH ×2 (12:41→21:45)
[2017-10-11] MEDS: DEXTROSE 5%-0.45% SALINE 1,000 ML with POTASSIUM CHLORIDE 10 MEQ IVPB SCH (15:11)
--- NOTE | 2017-10-11 20:30 | CON.OBG ---
Consult Consult Specialty:: OBGYN Referred by:: Dr Vargas Reason for Consultation:: Ovarian cyst - History of Present Illness Chief Complaint: Abdominal pain History of Present Illness: 37 yo 6 Para 0, admitted due to complaints of severe abdominal pain associated with weight loss. She has not seen a APPLIED EXERCISE PHYSIOLOGIST in a long time. A pelvic sonogram done in hospital showed evidence of ovarian cyst. Patient admits to epigastric pain; she denies any pelvic pain. - History Source History Provided By: Patient Limitations to Obtaining History: No Limitations - Past Medical History Cardio/Vascular: Yes: CAD, CHF, HTN, Hyperlipdemia, PA Pulmonary: Yes: Bronchitis Gastrointestinal: Yes: Other (diabetic gastroparesis, chronic abdominal pain) Renal/: Yes: Renal Inusuff ...LMP: 08/21/16 ...: No ...: 6 ...Para: 0 Psych: Yes: Anxiety, Panic Musculoskeletal: Yes: Other (rt shoulder pain) Endocrine: Yes: Diabetes Mellitus - Past Surgical History Past Surgical History: Yes: , Stent - Alcohol/Substance Use Hx Alcohol Use: No History of Substance Use: reports: Marijuana, Prescription Date of Last Use: 10/07/17 (ecstasy) - Smoking History Smoking history: Former smoker Have you smoked in the past 12 months: No Aproximately how many cigarettes per day: 1 If you are a former smoker, when did you quit?: 2015 - Social History Usual Living Arrangement: Alone ADL: Independent History of Recent Travel: No Home Medications - Allergies Allergies/Adverse Reactions: Allergies Allergy/AdvReac Type Severity Reaction Status Date / Time cephalexin monohydrate Allergy Severe Hives Verified 10/08/17 19:37 [From Keflex] - Home Medications Home Medications: Ambulatory Orders Aspirin [Aspirin EC] 81 mg PO DAILY 11/13/15 Metformin HCl 500 mg PO BID 08/25/16 Atorvastatin Ca [Lipitor] 80 mg PO HS #30 tablet 10/09/16 Labetalol HCl [Normodyne -] 200 mg PO BID #60 tablet 10/09/16 Ticagrelor [Brilinta -] 90 mg PO BID tablet 10/09/16 Metoclopramide HCl [Reglan] 10 mg PO TID #270 tablet 02/24/17 Pantoprazole Sodium 40 mg PO DAILY #90 tablet. 02/24/17 Ranolazine [Ranexa -] 500 mg PO BID tab 03/23/17 Escitalopram Oxalate [Lexapro -] mg PO DAILY 10/08/17 Family Disease History - Family Disease History Family History: Unremarkable Family Disease History: Diabetes: Mother (htn) Other Family History: No fam h/o colorectal cancer or other GI malignancy Review of Systems - Review of Systems Constitutional: reports: Unintentional Wgt. Loss Eyes: reports: No Symptoms HENT: reports: No Symptoms Neck: reports: No Symptoms Cardiovascular: reports: No Symptoms Respiratory: reports: No Symptoms Gastrointestinal: reports: Abdominal Pain Genitourinary: denies: Pain, Vaginal Bleeding Breasts: reports: No Symptoms Reported Musculoskeletal: reports: No Symptoms Integumentary: reports: No Symptoms Endocrine: reports: Unexplained Weight Loss Hematology/Lymphatic: reports: No Symptoms Psychiatric: reports: Anxiety Pain Intensity: 8 Physical Exam-APPLIED EXERCISE PHYSIOLOGIST Vital Signs: Vital Signs Temperature 98.1 F 10/11/17 14:37 Pulse Rate 61 10/11/17 14:37 Respiratory Rate 18 10/11/17 14:37 Blood Pressure 115/61 10/11/17 14:37 O2 Sat by Pulse Oximetry (%) 100 10/11/17 09:00 Constitutional: Yes: Calm Eyes: Yes: Conjunctiva Clear HENT: Yes: Atraumatic, Normocephalic Neck: Yes: Supple, Trachea Midline Cardiovascular: Yes: Regular Rate and Rhythm Respiratory: Yes: Regular, CTA Bilaterally Pelvis: No: Mass, Tenderness External Genitalia: Yes: Normal Vaginal Exam: Yes: Normal Cervix: Yes: Normal Uterus: Yes: Normal Adnexa: Normal: Bilateral (No tenderness to palpation ), Not Palpable: Left, Right Breast(s): Yes: WNL Musculoskeletal: Yes: WNL Extremities: Yes: WNL Neurological: Yes: Alert, Oriented ...Motor Strength: WNL Psychiatric: Yes: Alert, Oriented Labs: CBC, BMP 10/11/17 07:30 10/11/17 07:30 Problem List - Problems (1) Ovarian cyst Code(s): N83.209 - UNSPECIFIED OVARIAN CYST, UNSPECIFIED SIDE Assessment/Plan Abdominal pain Weight Ovarian cyst ( no suspicion of torsion ) F/U colonoscopy APPLIED EXERCISE PHYSIOLOGIST follow up as outpatient
[2017-10-11] MEDS: MIRTAZAPINE 15 MG TABLET (FP) PO SCH (21:44)
[2017-10-11] MEDS: ATORVASTATIN CA 80 MG TABLET (FP) PO SCH (21:44)
[2017-10-12] MEDS: DEXTROSE 5%-0.45% SALINE 1,000 ML with POTASSIUM CHLORIDE 10 MEQ IVPB SCH (02:36)
[2017-10-12] MEDS: INSULIN SLIDING SCALE (NOVOLOG) 1 VIAL SQ SCH ×2 (06:59→17:21)
[2017-10-12] MEDS: METOCLOPRAMIDE HCL 10 MG TABLET (FP) PO SCH ×3 (07:00→17:21)
[2017-10-12] MEDS: HYDROmorphone HCL CARPU-JECT 2 MG/1 ML DISP.SYRIN IVPB PRN ×3 (08:28→23:24)
--- NOTE | 2017-10-12 08:34 | PN ---
GI Progress Note Subjective: GI Note: CT enterography reveals no obvious small bowel pathology. Freezer Person not impressed with ovarian cyst. Having BMs with miralax - Objective Vital Signs: Vital Signs Temperature 97.8 F 10/12/17 05:58 Pulse Rate 58 L 10/12/17 05:58 Respiratory Rate 20 10/12/17 05:58 Blood Pressure 108/60 10/12/17 05:58 O2 Sat by Pulse Oximetry (%) 100 10/11/17 22:00 Constitutional: No Distress ...Auscultate: Yes: Normoactive Bowel Sounds ...Palpate: Yes: Soft, Other (nontender) Labs: CBC, BMP 10/11/17 07:30 10/11/17 07:30 Assessment/Plan Consecutive 24 hour urine collections in progress to exclude carcinoid tumor, amyloidosis and porphyria as the cause of pain. \ Brillinta held in anticipation of EGD and colonoscopy 10/16. Problem List - Problems (1) Weight loss Code(s): R63.4 - ABNORMAL WEIGHT LOSS (2) Abdominal pain Code(s): R10.9 - UNSPECIFIED ABDOMINAL PAIN Qualifiers: Abdominal location: generalized Qualified Code(s): R10.84 - Generalized abdominal pain
[2017-10-12 08:59] LABS: BASO % 0.5 % (0-2.0); HEMATOCRIT 27.5 % (32.4-45.2); HEMOGLOBIN 8.8 GM/dL (10.7-15.3); LYMPH % 35.9 % (8-40); MCH 23.7 pg (25.7-33.7); MEAN PLT VOLUME 6.9 fl (7.5-11.1); MONO % 12.1 % (3.8-10.2); NEUT % 49.5 % (42.8-82.8); PLATELET COUNT 408 K/MM3 (134-434); RBC 3.72 M/mm3 (3.60-5.2); RDW 21.8 % (11.6-15.6); WHITE BLOOD COUNT 5.4 K/mm3 (4.0-10.0)
--- NOTE | 2017-10-12 09:05 | PN ---
Progress Note, Physician Chief Complaint: no complaints ECG 10/11: Sinus lidya 54. QTc now NORMAL at 415ms; all the non-specific T wave changes from the previous ECG (while hypokalemic) RESOLVED. - Current Medication List Current Medications: Active Medications Aspirin (Ecotrin -) 81 mg PO DAILY [facility] Last Admin: 10/11/17 09:25 Dose: 81 mg Atorvastatin Calcium (Lipitor -) 80 mg PO HS [facility] Last Admin: 10/11/17 21:44 Dose: 80 mg Bisacodyl (Dulcolax -) 20 mg PO ONCE ONE Stop: 10/15/17 18:01 Escitalopram Oxalate (Lexapro -) 10 mg PO DAILY [facility] Last Admin: 10/11/17 09:25 Dose: 10 mg Hydromorphone HCl (Dilaudid Injection -) 1 mg IVPB Q6H PRN PRN Reason: PAIN Last Admin: 10/12/17 08:28 Dose: 1 mg Potassium Chloride 10 meq/ (Dextrose/Sodium Chloride) 1,005 mls @ 100 mls/hr IVPB ASDIR [facility] Last Admin: 10/12/17 02:36 Dose: 100 mls/hr Insulin Aspart (Novolog Vial Sliding Scale -) 0 vial SQ BIDAC [facility] PRN Reason: Protocol Last Admin: 10/12/17 06:59 Dose: 2 units Labetalol HCl (Normodyne -) 200 mg PO BID [facility] Last Admin: 10/11/17 21:44 Dose: 200 mg Metoclopramide HCl (Reglan -) 10 mg PO TIDAC [facility] Last Admin: 10/12/17 07:00 Dose: 10 mg Mirtazapine (Remeron -) 15 mg PO [facility] Last Admin: 10/11/17 21:44 Dose: 15 mg Ondansetron HCl (Zofran Injection) 4 mg IVPUSH Q6H PRN PRN Reason: NAUSEA Last Admin: 10/11/17 21:44 Dose: 4 mg Pantoprazole Sodium (Protonix -) 40 mg PO DAILY [facility] Last Admin: 10/11/17 09:25 Dose: 40 mg Polyethylene Glycol (Miralax (For Daily Use) -) 17 gm PO BID [facility] Last Admin: 10/11/17 21:45 Dose: 17 gm Ranolazine (Ranexa -) 500 mg PO BID [facility] Last Admin: 10/11/17 21:45 Dose: 500 mg - Objective Vital Signs: Vital Signs Temperature 97.8 F 10/12/17 05:58 Pulse Rate 58 L 10/12/17 05:58 Respiratory Rate 20 10/12/17 05:58 Blood Pressure 108/60 10/12/17 05:58 O2 Sat by Pulse Oximetry (%) 100 10/11/17 22:00 Constitutional: Yes: Calm Cardiovascular: Yes: Regular Rate and Rhythm Respiratory: Yes: CTA Bilaterally Gastrointestinal: Yes: Soft Edema: No Neurological: Yes: Alert, Oriented - ....Imaging EKG: Image Reviewed Assessment/Plan CAD s/p MIs PTCA on distal LAD, most recently NSTEMI with STAR OM 03/2017 ([place]) DM Chronic nausea, vomiting and abdominal pain with nl gastic emptying study and previous NL EGD Now admitted with ongoing chronic N/V, abdominal pain and weight loss. Nonspecific ST changes, prolonged QTc in setting HypoK+ REC: 1. For EGD/Colonoscopy: Should be off Brilinta for at least 3-5 days prior to endoscopy, has been scheduled 10/16. 2. Re: NSST changes, Prolonged QT: likely due to low K+, opiates ECG now normalized with repletion of K+ and minimization of opiates. Careful with Zofran as it may also prolong the QT. (Currently dosed PRN)
[2017-10-12 09:25] LABS: ANION GAP 9 (8-16); BLOOD UREA NITROGEN 5 mg/dL (7-18); CALCIUM 8.7 mg/dL (8.5-10.1); CHLORIDE 105 mmol/L (98-107); CO2 25 mmol/L (21-32); CREATININE 0.9 mg/dL (0.55-1.02); GLUCOSE,RANDOM 135 mg/dL (74-106); MAGNESIUM 1.9 mg/dL (1.8-2.4); PHOSPHOROUS 3.8 mg/dL (2.5-4.9); POTASSIUM 4.5 mmol/L (3.5-5.1); SODIUM 139 mmol/L (136-145)
[2017-10-12] MEDS: ESCITALOPRAM OXALATE 10 MG TABLET (FP) PO SCH (10:11)
[2017-10-12] MEDS: PANTOPRAZOLE 40 MG TABLET (FP) PO SCH (10:11)
[2017-10-12] MEDS: ASPIRIN COATED 81 MG TABLET.EC PO SCH (10:11)
[2017-10-12] MEDS: RANOLAZINE E.R. 500 MG TABLET (FP) PO SCH ×2 (10:11→21:41)
[2017-10-12] MEDS: LABETALOL HCL 200 MG TABLET (FP) PO SCH ×2 (10:11→21:41)
[2017-10-12] MEDS: POLYETHYLENE GLYCOL 3350 119 GM BTL PO SCH ×2 (10:12→21:41)
--- NOTE | 2017-10-12 12:59 | EKG ---
Test Reason : Blood Pressure : / mmHG Vent. Rate : 058 BPM Atrial Rate : 058 BPM P-R Int : 156 ms QRS Dur : 084 ms QT Int : 432 ms P-R-T Axes : 010 025 024 degrees QTc Int : 424 ms SINUS BRADYCARDIA OTHERWISE NORMAL ECG WHEN COMPARED WITH ECG OF 11-OCT-2017 10:43, NO SIGNIFICANT CHANGE WAS FOUND Confirmed by DANI BHAKTA MD ([id number]) on 10/12/2017 12:58:35 PM Referred By: Confirmed By:DANI BHAKTA MD
[2017-10-12 14:15] LABS: TRANSGLUTAMINASE IGA < 2 U/mL (0-3); TRANSGLUTAMINASE IGG < 2 U/mL (0-5)
--- NOTE | 2017-10-12 14:15 | PN ---
Progress Note, Physician Chief Complaint: Ms Berry abdominal pain is unchanged. Denies cp, sob, n/v. - Current Medication List Current Medications: Active Medications Aspirin (Ecotrin -) 81 mg PO DAILY [facility] Last Admin: 10/12/17 10:11 Dose: 81 mg Atorvastatin Calcium (Lipitor -) 80 mg PO HS [facility] Last Admin: 10/11/17 21:44 Dose: 80 mg Bisacodyl (Dulcolax -) 20 mg PO ONCE ONE Stop: 10/15/17 18:01 Escitalopram Oxalate (Lexapro -) 10 mg PO DAILY [facility] Last Admin: 10/12/17 10:11 Dose: 10 mg Hydromorphone HCl (Dilaudid Injection -) 1 mg IVPB Q6H PRN PRN Reason: PAIN Last Admin: 10/12/17 08:28 Dose: 1 mg Potassium Chloride 10 meq/ (Dextrose/Sodium Chloride) 1,005 mls @ 100 mls/hr IVPB ASDIR [facility] Last Admin: 10/12/17 02:36 Dose: 100 mls/hr Insulin Aspart (Novolog Vial Sliding Scale -) 0 vial SQ BIDAC [facility] PRN Reason: Protocol Last Admin: 10/12/17 06:59 Dose: 2 units Labetalol HCl (Normodyne -) 200 mg PO BID [facility] Last Admin: 10/12/17 10:11 Dose: 200 mg Metoclopramide HCl (Reglan -) 10 mg PO TIDAC [facility] Last Admin: 10/12/17 10:11 Dose: 10 mg Mirtazapine (Remeron -) 15 mg PO HS [facility] Last Admin: 10/11/17 21:44 Dose: 15 mg Ondansetron HCl (Zofran Injection) 4 mg IVPUSH Q6H PRN PRN Reason: NAUSEA Last Admin: 10/11/17 21:44 Dose: 4 mg Pantoprazole Sodium (Protonix -) 40 mg PO DAILY [facility] Last Admin: 10/12/17 10:11 Dose: 40 mg Polyethylene Glycol (Miralax (For Daily Use) -) 17 gm PO BID [facility] Last Admin: 10/12/17 10:12 Dose: 17 gm Ranolazine (Ranexa -) 500 mg PO BID [facility] Last Admin: 10/12/17 10:11 Dose: 500 mg - Objective Vital Signs: Vital Signs Temperature 36.8 C 10/12/17 10:00 Pulse Rate 63 10/12/17 10:00 Respiratory Rate 18 10/12/17 10:00 Blood Pressure 121/77 10/12/17 10:00 O2 Sat by Pulse Oximetry (%) 100 10/12/17 09:00 Constitutional: Yes: Well Nourished, No Distress, Calm Cardiovascular: Yes: Regular Rate and Rhythm. No: Gallop, Murmur, Rub Respiratory: Yes: Regular, CTA Bilaterally. No: Rales, Rhonchi, Wheezes Gastrointestinal: Yes: Normal Bowel Sounds, Soft. No: Distention, Tenderness Extremities: Yes: WNL Edema: No Labs: CBC, BMP 10/12/17 08:00 10/12/17 07:30 Problem List - Problems (1) Abdominal pain Code(s): R10.9 - UNSPECIFIED ABDOMINAL PAIN Qualifiers: Abdominal location: generalized Qualified Code(s): R10.84 - Generalized abdominal pain (2) Anxiety Code(s): F41.9 - ANXIETY DISORDER, UNSPECIFIED (3) Chronic diastolic (congestive) heart failure Code(s): I50.32 - CHRONIC DIASTOLIC (CONGESTIVE) HEART FAILURE (4) Cannabis abuse Code(s): F12.10 - CANNABIS ABUSE, UNCOMPLICATED (5) Coronary artery disease Code(s): I25.10 - ATHSCL HEART DISEASE OF [place] CORONARY ARTERY W/O ANG PCTRS Qualifiers: Coronary Disease-Associated Artery/Lesion type: [place] artery [place] vs. transplanted heart: [place] heart Associated angina: with unspecified angina Qualified Code(s): I25.119 - Atherosclerotic heart disease of [place] coronary artery with unspecified angina pectoris (6) Diabetes mellitus Code(s): E11.9 - TYPE 2 DIABETES MELLITUS WITHOUT COMPLICATIONS Qualifiers: Diabetes mellitus type: type 2 Diabetes mellitus complication status: with kidney complications Diabetes mellitus complication detail: with chronic kidney disease Chronic kidney disease stage: stage 3 (moderate) (7) Hyperlipidemia Code(s): E78.5 - HYPERLIPIDEMIA, UNSPECIFIED Qualifiers: Hyperlipidemia type: unspecified Qualified Code(s): E78.5 - Hyperlipidemia , unspecified (8) Hypertension Code(s): I10 - ESSENTIAL (PRIMARY) HYPERTENSION Qualifiers: Hypertension type: essential hypertension Qualified Code(s): I10 - Essential (primary) hypertension Assessment/Plan (1) Abdominal pain Assessment/Plan: -appreciate gynecology assistance -outpatient follow up -planning for colonoscopy Code(s): R10.9 - UNSPECIFIED ABDOMINAL PAIN Qualifiers: Abdominal location: generalized Qualified Code(s): R10.84 - Generalized abdominal pain (2) Anxiety Assessment/Plan: -continue lexapro Code(s): F41.9 - ANXIETY DISORDER, UNSPECIFIED (3) Chronic diastolic (congestive) heart failure Assessment/Plan: -not in exacerbation -monitor while on IVF Code(s): I50.32 - CHRONIC DIASTOLIC (CONGESTIVE) HEART FAILURE (4) Cannabis abuse Assessment/Plan: -counselled against continued marijuana use Code(s): F12.10 - CANNABIS ABUSE, UNCOMPLICATED (5) Coronary artery disease Assessment/Plan: -quiescent -continue home regimen Code(s): I25.10 - ATHSCL HEART DISEASE OF [place] CORONARY ARTERY W/O ANG PCTRS Qualifiers: Coronary Disease-Associated Artery/Lesion type: [place] artery [place] vs. transplanted heart: [place] heart Associated angina: with unspecified angina Qualified Code(s): I25.119 - Atherosclerotic heart disease of [place] coronary artery with unspecified angina pectoris (6) Diabetes mellitus Assessment/Plan: -FSBS and SSI -diabetic diet Code(s): E11.9 - TYPE 2 DIABETES MELLITUS WITHOUT COMPLICATIONS Qualifiers: Diabetes mellitus type: type 2 Diabetes mellitus complication status: with kidney complications Diabetes mellitus complication detail: with chronic kidney disease Chronic kidney disease stage: stage 3 (moderate) Qualified Code(s): E11.22 - Type 2 diabetes mellitus with diabetic chronic kidney disease (7) Hyperlipidemia Assessment/Plan: -continue statin Code(s): E78.5 - HYPERLIPIDEMIA, UNSPECIFIED Qualifiers: Hyperlipidemia type: unspecified Qualified Code(s): E78.5 - Hyperlipidemia , unspecified (8) Hypertension Assessment/Plan: -well controlled -continue home regimen Code(s): I10 - ESSENTIAL (PRIMARY) HYPERTENSION Qualifiers: Hypertension type: essential hypertension Qualified Code(s): I10 - Essential (primary) hypertension
[2017-10-12] MEDS: ONDANSETRON 4 MG/2 ML VIAL IVPUSH PRN (15:41)
[2017-10-12] MEDS ORDERED: INSULIN (NOVOLOG) ASPART 100 UNITS/ML 10ML VIAL ONE (17:17)
[2017-10-12] MEDS: MIRTAZAPINE 15 MG TABLET (FP) PO SCH (21:41)
[2017-10-12] MEDS: POTASSIUM CHLORIDE 10 MEQ in DEXTROSE 5%-0.45% SALINE 1,000 ML IVPB SCH (21:41)
[2017-10-12] MEDS: ATORVASTATIN CA 80 MG TABLET (FP) PO SCH (21:41)
[2017-10-13] MEDS: METOCLOPRAMIDE HCL 10 MG TABLET (FP) PO SCH ×3 (06:45→17:17)
[2017-10-13] MEDS: INSULIN SLIDING SCALE (NOVOLOG) 1 VIAL SQ SCH ×2 (06:45→17:16)
[2017-10-13] MEDS: HYDROmorphone HCL CARPU-JECT 2 MG/1 ML DISP.SYRIN IVPB PRN ×3 (06:49→19:45)
--- NOTE | 2017-10-13 09:03 | PN ---
Progress Note, Physician Chief Complaint: no complaints ECG remains nl History of Present Illness: Watching repeats of Judge Froilan Dumont show on YouTube from her laptop Denies CP, SOB, Palps, edema, dizziness - Current Medication List Current Medications: Active Medications Aspirin (Ecotrin -) 81 mg PO DAILY [facility] Last Admin: 10/12/17 10:11 Dose: 81 mg Atorvastatin Calcium (Lipitor -) [address] [facility] Last Admin: 10/12/17 21:41 Dose: 80 mg Bisacodyl (Dulcolax -) 20 mg PO ONCE ONE Stop: 10/15/17 18:01 Escitalopram Oxalate (Lexapro -) 10 mg PO DAILY [facility] Last Admin: 10/12/17 10:11 Dose: 10 mg Hydromorphone HCl (Dilaudid Injection -) 1 mg IVPB Q6H PRN PRN Reason: PAIN Last Admin: 10/13/17 06:49 Dose: 1 mg Potassium Chloride 10 meq/ (Dextrose/Sodium Chloride) 1,005 mls @ 100 mls/hr IVPB ASDIR [facility] Last Admin: 10/12/17 21:41 Dose: 100 mls/hr Insulin Aspart (Novolog Vial Sliding Scale -) 0 vial SQ BIDAC [facility] PRN Reason: Protocol Last Admin: 10/13/17 06:45 Dose: 2 units Labetalol HCl (Normodyne -) 200 mg PO BID [facility] Last Admin: 10/12/17 21:41 Dose: 200 mg Metoclopramide HCl (Reglan -) 10 mg PO TIDAC [facility] Last Admin: 10/13/17 06:45 Dose: 10 mg Mirtazapine (Remeron -) 15 mg PO HS [facility] Last Admin: 10/12/17 21:41 Dose: 15 mg Ondansetron HCl (Zofran Injection) 4 mg IVPUSH Q6H PRN PRN Reason: NAUSEA Last Admin: 10/12/17 15:41 Dose: 4 mg Pantoprazole Sodium (Protonix -) 40 mg PO DAILY [facility] Last Admin: 10/12/17 10:11 Dose: 40 mg Polyethylene Glycol (Miralax (For Daily Use) -) 17 gm PO BID [facility] Last Admin: 10/12/17 21:41 Dose: 17 gm Ranolazine (Ranexa -) 500 mg PO BID [facility] Last Admin: 10/12/17 21:41 Dose: 500 mg - Objective Vital Signs: Vital Signs Temperature 98.8 F 10/13/17 05:53 Pulse Rate 60 10/13/17 05:53 Respiratory Rate 20 10/13/17 05:53 Blood Pressure 128/68 10/13/17 05:53 O2 Sat by Pulse Oximetry (%) 100 10/12/17 21:00 Constitutional: Yes: No Distress, Calm Eyes: Yes: Conjunctiva Clear Cardiovascular: Yes: Regular Rate and Rhythm Respiratory: Yes: CTA Bilaterally Gastrointestinal: Yes: Soft (non-tender) Edema: No Neurological: Yes: Alert, Oriented Labs: CBC, BMP 10/12/17 08:00 10/12/17 07:30 Laboratory Tests 10/12/17 10/12/17 07:30 08:00 WBC 5.4 Hgb 8.8 L Plt Count 408 Sodium 139 Potassium 4.5 Creatinine Pending Magnesium 1.9 - ....Imaging EKG: Report Reviewed Assessment/Plan CAD s/p MIs PTCA on distal LAD, most recently NSTEMI with STAR OM 03/2017 ([place]) DM Now admitted with ongoing chronic N/V, abdominal pain and weight loss. Nonspecific ST changes, prolonged QTc in setting HypoK+ REC: 1. For EGD/Colonoscopy: Should be off Brilinta for at least 3-5 days prior to endoscopy, has been scheduled 10/16. 2. Re: NSST changes, Prolonged QT: likely due to low K+, opiates on admission ECG now normalized with repletion of K+ and minimization of opiates. Careful with Zofran as it may also prolong the QT. (Currently dosed PRN)
[2017-10-13] MEDS: ESCITALOPRAM OXALATE 10 MG TABLET (FP) PO SCH (09:24)
[2017-10-13] MEDS: LABETALOL HCL 200 MG TABLET (FP) PO SCH ×2 (09:24→22:03)
[2017-10-13] MEDS: ASPIRIN COATED 81 MG TABLET.EC PO SCH (09:24)
[2017-10-13] MEDS: POLYETHYLENE GLYCOL 3350 119 GM BTL PO SCH ×2 (09:24→22:03)
[2017-10-13] MEDS: PANTOPRAZOLE 40 MG TABLET (FP) PO SCH (09:24)
[2017-10-13] MEDS: RANOLAZINE E.R. 500 MG TABLET (FP) PO SCH ×2 (09:24→22:03)
[2017-10-13 10:12] LABS: BASO % 0.5 % (0-2.0); EOS % 1.9 % (0-4.5); HEMATOCRIT 26.7 % (32.4-45.2); HEMOGLOBIN 8.4 GM/dL (10.7-15.3); LYMPH % 29.5 % (8-40); MCH 23.5 pg (25.7-33.7); MCHC 31.6 g/dl (32.0-36.0); MEAN CELL VOLUME 74.4 fl (80-96); MEAN PLT VOLUME 6.6 fl (7.5-11.1); MONO % 11.7 % (3.8-10.2); NEUT % 56.4 % (42.8-82.8); PLATELET COUNT 344 K/MM3 (134-434); RBC 3.59 M/mm3 (3.60-5.2); RDW 21.1 % (11.6-15.6); WHITE BLOOD COUNT 5.7 K/mm3 (4.0-10.0)
[2017-10-13 10:32] LABS: ANION GAP 9 (8-16); BLOOD UREA NITROGEN 4 mg/dL (7-18); CALCIUM 8.4 mg/dL (8.5-10.1); CHLORIDE 103 mmol/L (98-107); CO2 25 mmol/L (21-32); CREATININE 0.9 mg/dL (0.55-1.02); GLUCOSE,RANDOM 139 mg/dL (74-106); MAGNESIUM 1.7 mg/dL (1.8-2.4); PHOSPHOROUS 3.9 mg/dL (2.5-4.9); POTASSIUM 3.8 mmol/L (3.5-5.1); SODIUM 137 mmol/L (136-145)
--- NOTE | 2017-10-13 15:45 | PN ---
Progress Note, Physician - Current Medication List Current Medications: Active Medications Aspirin (Ecotrin -) 81 mg PO DAILY [facility] Last Admin: 10/13/17 09:24 Dose: 81 mg Atorvastatin Calcium (Lipitor -) 80 mg PO HS [facility] Last Admin: 10/12/17 21:41 Dose: 80 mg Bisacodyl (Dulcolax -) 20 mg PO ONCE ONE Stop: 10/15/17 18:01 Escitalopram Oxalate (Lexapro -) 10 mg PO DAILY [facility] Last Admin: 10/13/17 09:24 Dose: 10 mg Hydromorphone HCl (Dilaudid Injection -) 1 mg IVPB Q6H PRN PRN Reason: PAIN Last Admin: 10/13/17 13:24 Dose: 1 mg Potassium Chloride 10 meq/ (Dextrose/Sodium Chloride) 1,005 mls @ 100 mls/hr IVPB ASDIR [facility] Last Admin: 10/12/17 21:41 Dose: 100 mls/hr Insulin Aspart (Novolog Vial Sliding Scale -) 0 vial SQ BIDAC [facility] PRN Reason: Protocol Last Admin: 10/13/17 06:45 Dose: 2 units Labetalol HCl (Normodyne -) 200 mg PO BID [facility] Last Admin: 10/13/17 09:24 Dose: 200 mg Metoclopramide HCl (Reglan -) 10 mg PO TIDAC [facility] Last Admin: 10/13/17 11:59 Dose: 10 mg Mirtazapine (Remeron -) 15 mg PO HS [facility] Last Admin: 10/12/17 21:41 Dose: 15 mg Ondansetron HCl (Zofran Injection) 4 mg IVPUSH Q6H PRN PRN Reason: NAUSEA Last Admin: 10/12/17 15:41 Dose: 4 mg Pantoprazole Sodium (Protonix -) 40 mg PO DAILY [facility] Last Admin: 10/13/17 09:24 Dose: 40 mg Polyethylene Glycol (Miralax (For Daily Use) -) 17 gm PO BID [facility] Last Admin: 10/13/17 09:24 Dose: 17 gm Ranolazine (Ranexa -) 500 mg PO BID [facility] Last Admin: 10/13/17 09:24 Dose: 500 mg - Objective Vital Signs: Vital Signs Temperature 36.9 C 10/13/17 14:33 Pulse Rate 68 10/13/17 14:33 Respiratory Rate 20 10/13/17 09:37 Blood Pressure 137/85 10/13/17 14:33 O2 Sat by Pulse Oximetry (%) 100 10/12/17 21:00 Constitutional: Yes: Well Nourished, No Distress, Calm Cardiovascular: Yes: Regular Rate and Rhythm. No: Gallop, Murmur, Rub Respiratory: Yes: Regular, CTA Bilaterally. No: Rales, Rhonchi, Wheezes Gastrointestinal: Yes: Normal Bowel Sounds, Soft. No: Distention, Tenderness Extremities: Yes: WNL Edema: No Labs: CBC, BMP 10/13/17 09:50 10/13/17 09:50 Problem List - Problems (1) Abdominal pain Code(s): R10.9 - UNSPECIFIED ABDOMINAL PAIN Qualifiers: Abdominal location: generalized Qualified Code(s): R10.84 - Generalized abdominal pain (2) Anxiety Code(s): F41.9 - ANXIETY DISORDER, UNSPECIFIED (3) Chronic diastolic (congestive) heart failure Code(s): I50.32 - CHRONIC DIASTOLIC (CONGESTIVE) HEART FAILURE (4) Cannabis abuse Code(s): F12.10 - CANNABIS ABUSE, UNCOMPLICATED (5) Coronary artery disease Code(s): I25.10 - ATHSCL HEART DISEASE OF [place] CORONARY ARTERY W/O ANG PCTRS Qualifiers: Coronary Disease-Associated Artery/Lesion type: [place] artery [place] vs. transplanted heart: [place] heart Associated angina: with unspecified angina Qualified Code(s): I25.119 - Atherosclerotic heart disease of [place] coronary artery with unspecified angina pectoris (6) Diabetes mellitus Code(s): E11.9 - TYPE 2 DIABETES MELLITUS WITHOUT COMPLICATIONS Qualifiers: Diabetes mellitus type: type 2 Diabetes mellitus complication status: with kidney complications Diabetes mellitus complication detail: with chronic kidney disease Chronic kidney disease stage: stage 3 (moderate) (7) Hyperlipidemia Code(s): E78.5 - HYPERLIPIDEMIA, UNSPECIFIED Qualifiers: Hyperlipidemia type: unspecified Qualified Code(s): E78.5 - Hyperlipidemia , unspecified (8) Hypertension Code(s): I10 - ESSENTIAL (PRIMARY) HYPERTENSION Qualifiers: Hypertension type: essential hypertension Qualified Code(s): I10 - Essential (primary) hypertension Assessment/Plan (1) Abdominal pain Assessment/Plan: -appreciate gynecology assistance -outpatient follow up -planning for colonoscopy -case d/w Dr Francescone -no escalation of narcotics, causing prolongation of QTc Code(s): R10.9 - UNSPECIFIED ABDOMINAL PAIN Qualifiers: Abdominal location: generalized Qualified Code(s): R10.84 - Generalized abdominal pain (2) Anxiety Assessment/Plan: -continue lexapro Code(s): F41.9 - ANXIETY DISORDER, UNSPECIFIED (3) Chronic diastolic (congestive) heart failure Assessment/Plan: -not in exacerbation -monitor while on IVF Code(s): I50.32 - CHRONIC DIASTOLIC (CONGESTIVE) HEART FAILURE (4) Cannabis abuse Assessment/Plan: -counselled against continued marijuana use Code(s): F12.10 - CANNABIS ABUSE, UNCOMPLICATED (5) Coronary artery disease Assessment/Plan: -quiescent -continue home regimen Code(s): I25.10 - ATHSCL HEART DISEASE OF [place] CORONARY ARTERY W/O ANG PCTRS Qualifiers: Coronary Disease-Associated Artery/Lesion type: [place] artery [place] vs. transplanted heart: [place] heart Associated angina: with unspecified angina Qualified Code(s): I25.119 - Atherosclerotic heart disease of [place] coronary artery with unspecified angina pectoris (6) Diabetes mellitus Assessment/Plan: -FSBS and SSI -diabetic diet Code(s): E11.9 - TYPE 2 DIABETES MELLITUS WITHOUT COMPLICATIONS Qualifiers: Diabetes mellitus type: type 2 Diabetes mellitus complication status: with kidney complications Diabetes mellitus complication detail: with chronic kidney disease Chronic kidney disease stage: stage 3 (moderate) Qualified Code(s): E11.22 - Type 2 diabetes mellitus with diabetic chronic kidney disease (7) Hyperlipidemia Assessment/Plan: -continue statin Code(s): E78.5 - HYPERLIPIDEMIA, UNSPECIFIED Qualifiers: Hyperlipidemia type: unspecified Qualified Code(s): E78.5 - Hyperlipidemia , unspecified (8) Hypertension Assessment/Plan: -well controlled -continue home regimen Code(s): I10 - ESSENTIAL (PRIMARY) HYPERTENSION Qualifiers: Hypertension type: essential hypertension Qualified Code(s): I10 - Essential (primary) hypertension
[2017-10-13] MEDS: MIRTAZAPINE 15 MG TABLET (FP) PO SCH (22:03)
[2017-10-13] MEDS: ATORVASTATIN CA 80 MG TABLET (FP) PO SCH (22:03)
[2017-10-13] MEDS: POTASSIUM CHLORIDE 10 MEQ in DEXTROSE 5%-0.45% SALINE 1,000 ML IVPB SCH (23:06)
[2017-10-14] MEDS: METOCLOPRAMIDE HCL 10 MG TABLET (FP) PO SCH ×3 (06:28→17:02)
[2017-10-14] MEDS: INSULIN SLIDING SCALE (NOVOLOG) 1 VIAL SQ SCH ×2 (06:28→17:02)
[2017-10-14] MEDS: HYDROmorphone HCL CARPU-JECT 2 MG/1 ML DISP.SYRIN IVPB PRN ×3 (06:34→18:26)
[2017-10-14 08:52] LABS: BASO % 0.7 % (0-2.0); HEMATOCRIT 27.2 % (32.4-45.2); HEMOGLOBIN 8.7 GM/dL (10.7-15.3); LYMPH % 24.2 % (8-40); MCH 23.6 pg (25.7-33.7); MCHC 31.9 g/dl (32.0-36.0); MONO % 16.5 % (3.8-10.2); NEUT % 56.6 % (42.8-82.8); PLATELET COUNT 345 K/MM3 (134-434); RBC 3.67 M/mm3 (3.60-5.2); WHITE BLOOD COUNT 4.8 K/mm3 (4.0-10.0)
[2017-10-14] MEDS ORDERED: PEG3350/SOD SULF,BICARB,CL/KCL 4,000 ML SOLN.RECON PO ONE (09:00)
[2017-10-14 09:03] LABS: ANION GAP 8 (8-16); BLOOD UREA NITROGEN 5 mg/dL (7-18); CALCIUM 8.4 mg/dL (8.5-10.1); CHLORIDE 106 mmol/L (98-107); CO2 26 mmol/L (21-32); CREATININE 0.8 mg/dL (0.55-1.02); GLUCOSE,RANDOM 128 mg/dL (74-106); MAGNESIUM 1.7 mg/dL (1.8-2.4); PHOSPHOROUS 3.8 mg/dL (2.5-4.9); POTASSIUM 4.4 mmol/L (3.5-5.1); SODIUM 140 mmol/L (136-145)
[2017-10-14] MEDS: ASPIRIN COATED 81 MG TABLET.EC PO SCH (09:05)
[2017-10-14] MEDS: RANOLAZINE E.R. 500 MG TABLET (FP) PO SCH ×2 (09:05→21:04)
[2017-10-14] MEDS: ESCITALOPRAM OXALATE 10 MG TABLET (FP) PO SCH (09:05)
[2017-10-14] MEDS: POLYETHYLENE GLYCOL 3350 119 GM BTL PO SCH ×2 (09:05→21:04)
[2017-10-14] MEDS: PANTOPRAZOLE 40 MG TABLET (FP) PO SCH (09:05)
[2017-10-14] MEDS: LABETALOL HCL 200 MG TABLET (FP) PO SCH ×2 (09:05→21:04)
[2017-10-14] MEDS: POTASSIUM CHLORIDE 10 MEQ in DEXTROSE 5%-0.45% SALINE 1,000 ML IVPB SCH ×2 (10:05→21:04)
--- NOTE | 2017-10-14 11:05 | PN ---
Progress Note, Physician History of Present Illness: seen and examined today in [place]. sitting comfortably now watching reruns of Judge Celis on youtube on her laptop. No new complaints. states she is overall feeling better. - Current Medication List Current Medications: Active Medications Aspirin (Ecotrin -) 81 mg PO DAILY [facility] Last Admin: 10/14/17 09:05 Dose: 81 mg Atorvastatin Calcium (Lipitor -) [address] [facility] Last Admin: 10/13/17 22:03 Dose: 80 mg Bisacodyl (Dulcolax -) 20 mg PO ONCE ONE Stop: 10/15/17 18:01 Escitalopram Oxalate (Lexapro -) 10 mg PO DAILY [facility] Last Admin: 10/14/17 09:05 Dose: 10 mg Hydromorphone HCl (Dilaudid Injection -) 1 mg IVPB Q6H PRN PRN Reason: PAIN Last Admin: 10/14/17 06:34 Dose: 1 mg Potassium Chloride 10 meq/ (Dextrose/Sodium Chloride) 1,005 mls @ 100 mls/hr IVPB ASDIR [facility] Last Admin: 10/14/17 10:05 Dose: 100 mls/hr Insulin Aspart (Novolog Vial Sliding Scale -) 0 vial SQ BIDAC [facility] PRN Reason: Protocol Last Admin: 10/14/17 06:28 Dose: 2 units Labetalol HCl (Normodyne -) 200 mg PO BID [facility] Last Admin: 10/14/17 09:05 Dose: 200 mg Metoclopramide HCl (Reglan -) 10 mg PO TIDAC [facility] Last Admin: 10/14/17 06:28 Dose: 10 mg Mirtazapine (Remeron -) [address] [facility] Last Admin: 10/13/17 22:03 Dose: 15 mg Ondansetron HCl (Zofran Injection) 4 mg IVPUSH Q6H PRN PRN Reason: NAUSEA Last Admin: 10/12/17 15:41 Dose: 4 mg Pantoprazole Sodium (Protonix -) 40 mg PO DAILY [facility] Last Admin: 10/14/17 09:05 Dose: 40 mg Polyethylene Glycol (Miralax (For Daily Use) -) 17 gm PO BID [facility] Last Admin: 10/14/17 09:05 Dose: 17 gm Ranolazine (Ranexa -) 500 mg PO BID [facility] Last Admin: 10/14/17 09:05 Dose: 500 mg - Objective Vital Signs: Vital Signs Temperature 98.4 F 10/14/17 08:59 Pulse Rate 64 10/14/17 08:59 Respiratory Rate 20 10/14/17 08:59 Blood Pressure 158/86 10/14/17 08:59 O2 Sat by Pulse Oximetry (%) 100 10/13/17 21:00 Constitutional: Yes: No Distress, Calm Eyes: Yes: Conjunctiva Clear, EOM Intact HENT: Yes: Atraumatic, Normocephalic Neck: Yes: Supple, Trachea Midline Cardiovascular: Yes: Regular Rate and Rhythm, S1, S2. No: Bradycardia, Tachycardia, Pulse Irregular, Bruit, JVD, Gallop, Murmur, Rub, S3, S4, Varicosities Respiratory: Yes: Regular, CTA Bilaterally. No: Rales, Rhonchi, Wheezes Gastrointestinal: Yes: Normal Bowel Sounds, Soft. No: Distention, Tenderness Extremities: Yes: WNL Edema: No Peripheral Pulses WNL: Yes Neurological: Yes: Alert, Oriented Psychiatric: Yes: Alert, Oriented Labs: CBC, BMP 10/14/17 07:30 10/14/17 07:30 - ....Imaging Chest X-ray: Report Reviewed, Image Reviewed EKG: Report Reviewed, Image Reviewed Other: Report Reviewed, Image Reviewed Assessment/Plan CAD s/p MIs PTCA on distal LAD, most recently NSTEMI with STAR OM 03/2017 ([place]) DM Now admitted with ongoing chronic N/V, abdominal pain and weight loss. Nonspecific ST changes, prolonged QTc in setting HypoK+ REC: 1. off Brilinta For EGD/Colonoscopy scheduled 10/16. 2. Re: NSST changes, Prolonged QT: likely due to low K+, opiates on admission K 4.4 today wnl ECG normalized with repletion of K+ and minimization of opiates. Careful with Zofran as it may also prolong the QT. (Currently dosed PRN)
--- NOTE | 2017-10-14 12:07 | PN ---
Progress Note, Physician History of Present Illness: Notes abd pain improves with pain medication (getting dilaudid curretnly) but notes that it wears off quickly. - Current Medication List Current Medications: Active Medications Aspirin (Ecotrin -) 81 mg PO DAILY [facility] Last Admin: 10/14/17 09:05 Dose: 81 mg Atorvastatin Calcium (Lipitor -) 80 mg PO [facility] Last Admin: 10/13/17 22:03 Dose: 80 mg Bisacodyl (Dulcolax -) 20 mg PO ONCE ONE Stop: 10/15/17 18:01 Escitalopram Oxalate (Lexapro -) 10 mg PO DAILY [facility] Last Admin: 10/14/17 09:05 Dose: 10 mg Hydromorphone HCl (Dilaudid Injection -) 1 mg IVPB Q6H PRN PRN Reason: PAIN Last Admin: 10/14/17 06:34 Dose: 1 mg Potassium Chloride 10 meq/ (Dextrose/Sodium Chloride) 1,005 mls @ 100 mls/hr IVPB ASDIR [facility] Last Admin: 10/14/17 10:05 Dose: 100 mls/hr Insulin Aspart (Novolog Vial Sliding Scale -) 0 vial SQ BIDAC [facility] PRN Reason: Protocol Last Admin: 10/14/17 06:28 Dose: 2 units Labetalol HCl (Normodyne -) 200 mg PO BID [facility] Last Admin: 10/14/17 09:05 Dose: 200 mg Metoclopramide HCl (Reglan -) 10 mg PO TIDAC [facility] Last Admin: 10/14/17 11:49 Dose: 10 mg Mirtazapine (Remeron -) 15 mg PO [facility] Last Admin: 10/13/17 22:03 Dose: 15 mg Ondansetron HCl (Zofran Injection) 4 mg IVPUSH Q6H PRN PRN Reason: NAUSEA Last Admin: 10/12/17 15:41 Dose: 4 mg Pantoprazole Sodium (Protonix -) 40 mg PO DAILY [facility] Last Admin: 10/14/17 09:05 Dose: 40 mg Polyethylene Glycol (Miralax (For Daily Use) -) 17 gm PO BID [facility] Last Admin: 10/14/17 09:05 Dose: 17 gm Ranolazine (Ranexa -) 500 mg PO BID [facility] Last Admin: 10/14/17 09:05 Dose: 500 mg - Objective Vital Signs: Vital Signs Temperature 98.4 F 10/14/17 08:59 Pulse Rate 64 10/14/17 08:59 Respiratory Rate 20 10/14/17 08:59 Blood Pressure 158/86 10/14/17 08:59 O2 Sat by Pulse Oximetry (%) 100 10/13/17 21:00 Constitutional: Yes: No Distress, Calm HENT: Yes: Atraumatic, Normocephalic Neck: Yes: Supple, Trachea Midline Cardiovascular: Yes: Regular Rate and Rhythm, S1, S2. No: Murmur Respiratory: Yes: Regular, CTA Bilaterally. No: Rales, Rhonchi, Wheezes Gastrointestinal: Yes: Normal Bowel Sounds, Soft, Tenderness. No: Distention Edema: No Neurological: Yes: Alert, Oriented Labs: CBC, BMP 10/14/17 07:30 10/14/17 07:30 Assessment/Plan Current Active Problems Abd pain Diabetic gastroparesis associated with type 2 diabetes mellitus (Acute) CAD Ovarian cyst (Acute) Weight loss (Acute) Anemia -holding brilinta for colonoscopy/ EGD -discussed pain medication with patient -advised that will have to keep pain medication the same as risk of cardiac abnormalities (prolonged QT) and will also need to see what EGD and colonoscopy reveal first -will further examine anemia as well
[2017-10-14] MEDS ORDERED: INSULIN (NOVOLOG) ASPART 100 UNITS/ML 10ML VIAL ONE (17:01)
[2017-10-14] MEDS: MIRTAZAPINE 15 MG TABLET (FP) PO SCH (21:04)
[2017-10-14] MEDS: ATORVASTATIN CA 80 MG TABLET (FP) PO SCH (21:04)
[2017-10-15] MEDS: HYDROmorphone HCL CARPU-JECT 2 MG/1 ML DISP.SYRIN IVPB PRN ×4 (01:52→22:05)
[2017-10-15] MEDS: METOCLOPRAMIDE HCL 10 MG TABLET (FP) PO SCH ×3 (06:20→16:32)
[2017-10-15] MEDS: INSULIN SLIDING SCALE (NOVOLOG) 1 VIAL SQ SCH ×2 (06:21→16:34)
[2017-10-15 08:25] LABS: BASO % 0.6 % (0-2.0); EOS % 2.7 % (0-4.5); HEMATOCRIT 24.3 % (32.4-45.2); HEMOGLOBIN 7.9 GM/dL (10.7-15.3); LYMPH % 35.8 % (8-40); MCH 23.8 pg (25.7-33.7); MCHC 32.6 g/dl (32.0-36.0); MEAN PLT VOLUME 6.8 fl (7.5-11.1); MONO % 16.4 % (3.8-10.2); NEUT % 44.5 % (42.8-82.8); PLATELET COUNT 327 K/MM3 (134-434); RBC 3.33 M/mm3 (3.60-5.2); RDW 21.6 % (11.6-15.6); WHITE BLOOD COUNT 4.7 K/mm3 (4.0-10.0)
[2017-10-15 08:51] LABS: ALBUMIN 2.6 g/dl (3.4-5.0); ANION GAP 8 (8-16); BLOOD UREA NITROGEN 3 mg/dL (7-18); CALCIUM 7.9 mg/dL (8.5-10.1); CHLORIDE 106 mmol/L (98-107); CO2 27 mmol/L (21-32); CREATININE 0.8 mg/dL (0.55-1.02); GLUCOSE,RANDOM 75 mg/dL (74-106); POTASSIUM 3.9 mmol/L (3.5-5.1); SGOT/AST 12 U/L (15-37); SGPT/ALT 21 U/L (12-78); SODIUM 141 mmol/L (136-145)
[2017-10-15 08:53] LABS: ALK PHOS 39 U/L (45-117); BILIRUBIN,TOTAL 0.2 mg/dL (0.2-1.0); TOT PROT 5.2 g/dl (6.4-8.2)
[2017-10-15] MEDS ORDERED: PEG3350/SOD SULF,BICARB,CL/KCL 4,000 ML SOLN.RECON PO ONE (09:00)
[2017-10-15] MEDS: ASPIRIN COATED 81 MG TABLET.EC PO SCH (09:27)
[2017-10-15] MEDS: ESCITALOPRAM OXALATE 10 MG TABLET (FP) PO SCH (09:27)
[2017-10-15] MEDS: PANTOPRAZOLE 40 MG TABLET (FP) PO SCH (09:27)
[2017-10-15] MEDS: LABETALOL HCL 200 MG TABLET (FP) PO SCH ×2 (09:27→22:05)
[2017-10-15] MEDS: RANOLAZINE E.R. 500 MG TABLET (FP) PO SCH ×2 (09:27→22:04)
[2017-10-15] MEDS: POLYETHYLENE GLYCOL 3350 119 GM BTL PO SCH ×2 (09:31→22:04)
--- NOTE | 2017-10-15 10:25 | CONSULT ---
Consult Consult Specialty:: Hematology/Oncology Reason for Consultation:: Anemia with target cells, schistocytes - History of Present Illness History of Present Illness: is a 37 y/o female with a PMHx of HTN, DM, CAD with NSTEMI s/p STAR in , CABG, Hx of gatroparesis, using narcotics and other drugs including marijuana, ecstasy use who presented with a 50 pound weight loss since the past 6 months, epigastric pain, nausea and vomiting. These symptoms have been progressively getting worse for the past year. CT A/P pelvis performed during this admission has been unrevealing. Patient has been evaluated by gastroenterology and an EGD has been scheduled for 10/16. We have been consulted to see patient and evaluate her anemia, also reported to have target cells and schistocytes on her peripheral smear. On speaking with patient today, she says she goes for 2 weeks at a time sometimes withuot eating food because of the intense abdominal pain. She will drink only 2% lactaid during this this time. She has been depressed due to the pain and tried to commit suicide twice because of it. She has been told that she is anemic in the past by her PCP but says that she was told not to take iron as it may have increased constipation and worsened her abdominal pain. - History Source History Provided By: Patient Limitations to Obtaining History: No Limitations - Past Medical History Cardio/Vascular: Yes: CAD, CHF, HTN, Hyperlipdemia, IN Pulmonary: Yes: Bronchitis Gastrointestinal: Yes: Other (diabetic gastroparesis, chronic abdominal pain) Renal/: Yes: Renal Inusuff ...LMP: 08/21/16 ...: No Psych: Yes: Anxiety, Panic Musculoskeletal: Yes: Other (rt shoulder pain) Endocrine: Yes: Diabetes Mellitus - Past Surgical History Past Surgical History: Yes: , Stent - Alcohol/Substance Use Hx Alcohol Use: No History of Substance Use: reports: Marijuana, Prescription Date of Last Use: 10/07/17 (ecstasy) - Smoking History Smoking history: Former smoker Have you smoked in the past 12 months: No Aproximately how many cigarettes per day: 1 If you are a former smoker, when did you quit?: 2015 - Social History Usual Living Arrangement: Alone ADL: Independent History of Recent Travel: No Home Medications - Allergies Allergies/Adverse Reactions: Allergies Allergy/AdvReac Type Severity Reaction Status Date / Time cephalexin monohydrate Allergy Severe Hives Verified 10/08/17 19:37 [From Keflex] - Home Medications Home Medications: Ambulatory Orders Aspirin [Aspirin EC] 81 mg PO DAILY 11/13/15 Metformin HCl 500 mg PO BID 08/25/16 Atorvastatin Ca [Lipitor] 80 mg PO HS #30 tablet 10/09/16 Labetalol HCl [Normodyne -] 200 mg PO BID #60 tablet 10/09/16 Ticagrelor [Brilinta -] 90 mg PO BID tablet 10/09/16 Metoclopramide HCl [Reglan] 10 mg PO TID #270 tablet 02/24/17 Pantoprazole Sodium 40 mg PO DAILY #90 tablet. 02/24/17 Ranolazine [Ranexa -] 500 mg PO BID tab 03/23/17 Escitalopram Oxalate [Lexapro -] mg PO DAILY 10/08/17 Family Disease History - Family Disease History Family Disease History: Diabetes: Mother (htn) Other Family History: No fam h/o colorectal cancer or other GI malignancy Review of Systems - Review of Systems Constitutional: reports: Unintentional Wgt. Loss, Weakness Eyes: reports: No Symptoms HENT: reports: No Symptoms Neck: reports: No Symptoms Cardiovascular: reports: No Symptoms Respiratory: reports: No Symptoms Gastrointestinal: reports: Abdominal Pain, Nausea, Vomiting Genitourinary: reports: No Symptoms Breasts: reports: No Symptoms Reported Musculoskeletal: reports: No Symptoms Integumentary: reports: No Symptoms Neurological: reports: No Symptoms Endocrine: reports: No Symptoms Hematology/Lymphatic: reports: No Symptoms Psychiatric: reports: Depression Physical Exam Vital Signs: Vital Signs Temperature 98.9 F 10/15/17 09:00 Pulse Rate 61 10/15/17 09:00 Respiratory Rate 20 10/15/17 09:00 Blood Pressure 169/89 10/15/17 09:00 O2 Sat by Pulse Oximetry (%) 100 10/13/17 21:00 Constitutional: Yes: Well Nourished, No Distress, Calm Eyes: Yes: WNL HENT: Yes: WNL Neck: Yes: WNL Cardiovascular: Yes: Regular Rate and Rhythm Respiratory: Yes: WNL Gastrointestinal: Yes: Normal Bowel Sounds, Soft Renal/: Yes: WNL Breast(s): Yes: WNL Extremities: Yes: WNL Integumentary: Yes: WNL Neurological: Yes: WNL ...Motor Strength: WNL Labs: CBC, [facility] 10/15/17 07:15 10/15/17 07:15 Imaging - Results Cat Scan: Report Reviewed Assessment/Plan 37 y/o female with DM on metformin, significant Hx of CAD s/p NSTEMI And STAR in 2017, now presenting with weightloss, severe abdominal pain and nausea/ vomitting that is progressively getting worse. Her CBC from today shows anemia with a low MCV CBC, [facility] 10/15/17 07:15 10/15/17 07:15 MCV :73 Peripheral smear shows- multiple target cells, 1-2 schistocytes /hpf , anisocytosis, normal appearing platelets, reduced no. of WBC's but grossly normal in appearance. Her presentation appears to suggest a nutritional deficiency anemia.She goes for long periods of time without adequate nutrition. She does not have any clinical features suggestive of TTP/HUS. Would recommend checking -iron studies, serum iron, ferritin, TIBC, transferrin -reticulocytes -serum copper, ceruloplasmin levels -serum Vit B12, RBC folate, serum homocysteine and methylmalonic acid levels -serum zinc levels ( not associated with anemia but associated with other symptoms that she is experiencing- depression, abdominal pain from Chrohns like presentation. -noted plan from GI to perform scope tomorrow, hold ticagrelor for procedure as per Cardiology recs -will continue to follow closely
--- NOTE | 2017-10-15 10:29 | PN ---
Progress Note, Physician History of Present Illness: seen and examined today in nad. drinking bowel prep. watching [employer] reruns on phone. comfortable, c/o continued abdominal discomfort not relieved by dilauded. no new complaints. - Current Medication List Current Medications: Active Medications Aspirin (Ecotrin -) 81 mg PO DAILY [facility] Last Admin: 10/15/17 09:27 Dose: 81 mg Atorvastatin Calcium (Lipitor -) 80 mg PO HS [facility] Last Admin: 10/14/17 21:04 Dose: 80 mg Bisacodyl (Dulcolax -) 20 mg PO ONCE ONE Stop: 10/15/17 18:01 Escitalopram Oxalate (Lexapro -) 10 mg PO DAILY [facility] Last Admin: 10/15/17 09:27 Dose: 10 mg Hydromorphone HCl (Dilaudid Injection -) 1 mg IVPB Q6H PRN PRN Reason: PAIN Last Admin: 10/15/17 08:32 Dose: 1 mg Potassium Chloride 10 meq/ (Dextrose/Sodium Chloride) 1,005 mls @ 100 mls/hr IVPB ASDIR [facility] Last Admin: 10/14/17 21:04 Dose: 100 mls/hr Insulin Aspart (Novolog Vial Sliding Scale -) 0 vial SQ BIDAC [facility] PRN Reason: Protocol Last Admin: 10/15/17 06:21 Dose: 2 units Labetalol HCl (Normodyne -) 200 mg PO BID [facility] Last Admin: 10/15/17 09:27 Dose: 200 mg Magnesium Citrate (Citroma -) 300 ml PO ONCE ONE Stop: 10/15/17 15:01 Metoclopramide HCl (Reglan -) 10 mg PO TIDAC [facility] Last Admin: 10/15/17 06:20 Dose: 10 mg Mirtazapine (Remeron -) 15 mg PO HS [facility] Last Admin: 10/14/17 21:04 Dose: 15 mg Ondansetron HCl (Zofran Injection) 4 mg IVPUSH Q6H PRN PRN Reason: NAUSEA Last Admin: 10/12/17 15:41 Dose: 4 mg Pantoprazole Sodium (Protonix -) 40 mg PO DAILY [facility] Last Admin: 10/15/17 09:27 Dose: 40 mg Polyethylene Glycol (Miralax (For Daily Use) -) 17 gm PO BID [facility] Last Admin: 10/15/17 09:31 Dose: Not Given Ranolazine (Ranexa -) 500 mg PO BID [facility] Last Admin: 10/15/17 09:27 Dose: 500 mg - Objective Vital Signs: Vital Signs Temperature 98.9 F 10/15/17 09:00 Pulse Rate 61 10/15/17 09:00 Respiratory Rate 20 10/15/17 09:00 Blood Pressure 169/89 10/15/17 09:00 O2 Sat by Pulse Oximetry (%) 100 10/13/17 21:00 Constitutional: Yes: No Distress, Calm Eyes: Yes: Conjunctiva Clear, EOM Intact, PERRL HENT: Yes: Atraumatic, Normocephalic Neck: Yes: Supple, Trachea Midline Cardiovascular: Yes: Regular Rate and Rhythm, S1, S2. No: Bradycardia, Tachycardia, Pulse Irregular, Bruit, JVD, Gallop, Murmur, Rub, S3, S4, Varicosities Respiratory: Yes: Regular, CTA Bilaterally. No: Rales, Rhonchi, Wheezes Gastrointestinal: Yes: Normal Bowel Sounds, Soft, Tenderness. No: Distention Musculoskeletal: Yes: WNL Extremities: Yes: WNL Edema: No Peripheral Pulses WNL: Yes Peripheral Pulses: Left Doralis Pedis: 2+, Right Dorsalis Pedis: 2+ Integumentary: Yes: WNL Neurological: Yes: Alert, Oriented Psychiatric: Yes: Alert, Oriented Labs: CBC, BMP 10/15/17 07:15 10/15/17 07:15 - ....Imaging Chest X-ray: Report Reviewed, Image Reviewed EKG: Report Reviewed, Image Reviewed Other: Report Reviewed, Image Reviewed Assessment/Plan CAD s/p MIs PTCA on distal LAD, most recently NSTEMI with STAR OM 03/2017 ([place]) DM Admitted with ongoing chronic N/V, abdominal pain and weight loss. Nonspecific ST changes, prolonged QTc in setting HypoK+ REC: 1. off Brilinta For EGD/Colonoscopy scheduled for tomorrow 10/16. 2. Re: NSST changes, Prolonged QT: likely due to low K+, opiates K 3.9 today, adequate, monitor and replete if needed to keep close to 4.0 ECG normalized with repletion of K+ and minimization of opiates. BP above goal this am but was previously adequate, cont current medical regimen for now Cont ASA, Lipitor, Labetalol, Ranexa
--- NOTE | 2017-10-15 11:31 | PN ---
GI Progress Note Subjective: GI NOte: Completing 4 liters of Golytely prep. Will give Citroma later today. She does feel some relief. - Objective Vital Signs: Vital Signs Temperature 98.9 F 10/15/17 09:00 Pulse Rate 61 10/15/17 09:00 Respiratory Rate 20 10/15/17 09:00 Blood Pressure 169/89 10/15/17 09:00 O2 Sat by Pulse Oximetry (%) 100 10/13/17 21:00 Constitutional: No Distress Gastrointestinal Inspection: Yes: Distention (softly distended) ...Auscultate: Yes: Hyperactive Bowel Sounds ...Palpate: Yes: Soft, Other (nontender) Labs: CBC, BMP 10/15/17 07:15 10/15/17 07:15 Assessment/Plan Brillinta effect should be worn off. For EGD and colonoscopy tomorrow. Problem List - Problems (1) Weight loss Code(s): R63.4 - ABNORMAL WEIGHT LOSS (2) Abdominal pain Code(s): R10.9 - UNSPECIFIED ABDOMINAL PAIN Qualifiers: Abdominal location: generalized Qualified Code(s): R10.84 - Generalized abdominal pain
--- NOTE | 2017-10-15 11:45 | PN ---
Progress Note, Physician History of Present Illness: Patient taking bowel prep for endoscopies tomorrow. Still has pain, but controlled with medication. - Current Medication List Current Medications: Active Medications Aspirin (Ecotrin -) 81 mg PO DAILY [facility] Last Admin: 10/15/17 09:27 Dose: 81 mg Atorvastatin Calcium (Lipitor -) 80 mg PO [facility] Last Admin: 10/14/17 21:04 Dose: 80 mg Bisacodyl (Dulcolax -) 20 mg PO ONCE ONE Stop: 10/15/17 18:01 Escitalopram Oxalate (Lexapro -) 10 mg PO DAILY [facility] Last Admin: 10/15/17 09:27 Dose: 10 mg Hydromorphone HCl (Dilaudid Injection -) 1 mg IVPB Q6H PRN PRN Reason: PAIN Last Admin: 10/15/17 08:32 Dose: 1 mg Potassium Chloride 10 meq/ (Dextrose/Sodium Chloride) 1,005 mls @ 100 mls/hr IVPB ASDIR [facility] Last Admin: 10/14/17 21:04 Dose: 100 mls/hr Insulin Aspart (Novolog Vial Sliding Scale -) [facility] Reason: Protocol Last Admin: 10/15/17 06:21 Dose: 2 units Labetalol HCl (Normodyne -) 200 mg PO BID [facility] Last Admin: 10/15/17 09:27 Dose: 200 mg Magnesium Citrate (Citroma -) 300 ml PO ONCE ONE Stop: 10/15/17 15:01 Metoclopramide HCl (Reglan -) 10 mg PO TIDAC [facility] Last Admin: 10/15/17 11:26 Dose: 10 mg Mirtazapine (Remeron -) 15 mg PO [facility] Last Admin: 10/14/17 21:04 Dose: 15 mg Ondansetron HCl (Zofran Injection) 4 mg IVPUSH Q6H PRN PRN Reason: NAUSEA Last Admin: 10/12/17 15:41 Dose: 4 mg Pantoprazole Sodium (Protonix -) 40 mg PO DAILY [facility] Last Admin: 10/15/17 09:27 Dose: 40 mg Polyethylene Glycol (Miralax (For Daily Use) -) 17 gm PO BID [facility] Last Admin: 10/15/17 09:31 Dose: Not Given Ranolazine (Ranexa -) 500 mg PO BID [facility] Last Admin: 10/15/17 09:27 Dose: 500 mg - Objective Vital Signs: Vital Signs Temperature 98.9 F 10/15/17 09:00 Pulse Rate 61 10/15/17 09:00 Respiratory Rate 20 10/15/17 09:00 Blood Pressure 169/89 10/15/17 09:00 O2 Sat by Pulse Oximetry (%) 100 10/13/17 21:00 Constitutional: Yes: No Distress, Calm HENT: Yes: Atraumatic, Normocephalic Neck: Yes: Supple, Trachea Midline Cardiovascular: Yes: Regular Rate and Rhythm, S1, S2. No: Murmur Respiratory: Yes: Regular, CTA Bilaterally. No: Rales, Rhonchi, Wheezes Gastrointestinal: Yes: Normal Bowel Sounds, Soft. No: Distention, Tenderness Edema: No Labs: CBC, BMP 10/15/17 07:15 10/15/17 07:15 Assessment/Plan Current Active Problems Abd pain Diabetic gastroparesis associated with type 2 diabetes mellitus (Acute) CAD Ovarian cyst (Acute) Weight loss (Acute) Anemia Sickle Cell trait -cont curretn treatment -further eval of anemia via hematology, given schistocytes, target cells reported on CBC
[2017-10-15] MEDS ORDERED: MAGNESIUM CITRATE 300 ML BOTTLE PO ONE (15:00)
[2017-10-15] MEDS ORDERED: BISACODYL 5 MG TABLET.DR (FP) PO ONE (18:00)
[2017-10-15] MEDS: POTASSIUM CHLORIDE 10 MEQ in DEXTROSE 5%-0.45% SALINE 1,000 ML IVPB SCH (18:12)
[2017-10-15] MEDS: MIRTAZAPINE 15 MG TABLET (FP) PO SCH (22:05)
[2017-10-15] MEDS: ATORVASTATIN CA 80 MG TABLET (FP) PO SCH (22:05)
[2017-10-16] MEDS: POTASSIUM CHLORIDE 10 MEQ in DEXTROSE 5%-0.45% SALINE 1,000 ML IVPB SCH ×2 (04:22→04:52)
[2017-10-16 06:07] LABS: SERUM IRON SATURATION 6 % (15-55); TOTAL IRON BINDING CAPACITY 321 ug/dL (250-450); UIBC 302 ug/dL (131-425)
[2017-10-16] MEDS: INSULIN SLIDING SCALE (NOVOLOG) 1 VIAL SQ SCH (06:08)
[2017-10-16] MEDS: METOCLOPRAMIDE HCL 10 MG TABLET (FP) PO SCH ×2 (06:09→12:02)
[2017-10-16] MEDS: HYDROmorphone HCL CARPU-JECT 2 MG/1 ML DISP.SYRIN IVPB PRN (06:12)
[2017-10-16 08:20] LABS: BASO % 0.4 % (0-2.0); EOS % 2.1 % (0-4.5); HEMATOCRIT 26.4 % (32.4-45.2); HEMOGLOBIN 8.5 GM/dL (10.7-15.3); LYMPH % 13.7 % (8-40); MCH 23.9 pg (25.7-33.7); MCHC 32.1 g/dl (32.0-36.0); MEAN CELL VOLUME 74.3 fl (80-96); MEAN PLT VOLUME 7.3 fl (7.5-11.1); MONO % 10.2 % (3.8-10.2); NEUT % 73.6 % (42.8-82.8); PLATELET COUNT 357 K/MM3 (134-434); RBC 3.56 M/mm3 (3.60-5.2); RDW 21.3 % (11.6-15.6); WHITE BLOOD COUNT 6.4 K/mm3 (4.0-10.0)
[2017-10-16 08:37] LABS: ALBUMIN 3.1 g/dl (3.4-5.0); ANION GAP 6 (8-16); CALCIUM 8.9 mg/dL (8.5-10.1); CHLORIDE 105 mmol/L (98-107); CO2 30 mmol/L (21-32); GLUCOSE,RANDOM 163 mg/dL (74-106); POTASSIUM 4.2 mmol/L (3.5-5.1); SODIUM 141 mmol/L (136-145)
[2017-10-16 08:43] LABS: ALK PHOS 46 U/L (45-117); BILIRUBIN,TOTAL 0.2 mg/dL (0.2-1.0); CREATININE 0.8 mg/dL (0.55-1.02); SGOT/AST 14 U/L (15-37); SGPT/ALT 26 U/L (12-78); TOT PROT 6.2 g/dl (6.4-8.2)
[2017-10-16] MEDS: LABETALOL HCL 200 MG TABLET (FP) PO SCH ×2 (08:52→09:00)
[2017-10-16] MEDS: ESCITALOPRAM OXALATE 10 MG TABLET (FP) PO SCH (08:59)
[2017-10-16] MEDS: POLYETHYLENE GLYCOL 3350 119 GM BTL PO SCH (08:59)
[2017-10-16] MEDS: ASPIRIN COATED 81 MG TABLET.EC PO SCH (08:59)
[2017-10-16] MEDS: PANTOPRAZOLE 40 MG TABLET (FP) PO SCH (09:00)
[2017-10-16] MEDS: RANOLAZINE E.R. 500 MG TABLET (FP) PO SCH (09:00)
[2017-10-16] MEDS ORDERED: PROPOFOL 20 ML ONE ×2 (09:58)
[2017-10-16 10:39] LABS: BLOOD UREA NITROGEN 1 mg/dL (7-18)
--- NOTE | 2017-10-16 11:32 | PN ---
Progress Note (short form) - Note Progress Note: GI Procedure Note: Please see scanned EGD and colonoscopy reports. No cause of pain or weight loss found. Resiudual stool found. Pain may have been impacted feces. Can resume anticoagulation. No GI objections to discharge on PPI and Miralax. Problem List - Problems (1) Weight loss Code(s): R63.4 - ABNORMAL WEIGHT LOSS (2) Abdominal pain Code(s): R10.9 - UNSPECIFIED ABDOMINAL PAIN Qualifiers: Abdominal location: generalized Qualified Code(s): R10.84 - Generalized abdominal pain
[2017-10-16 15:07] VITALS: BP 135/85; PULSE 67; TEMP 97.4
--- NOTE | 2017-10-16 15:10 | DS ---
Physical Examination Vital Signs: Vital Signs Temperature 36.3 C L 10/16/17 15:04 Pulse Rate 67 10/16/17 15:04 Respiratory Rate 20 10/16/17 15:04 Blood Pressure 135/85 10/16/17 15:04 O2 Sat by Pulse Oximetry (%) 100 10/16/17 11:52 Labs: CBC, BMP 10/16/17 07:23 10/16/17 07:23 Discharge Summary Reason For Visit: GASTROPARESIS Current Active Problems Diabetic gastroparesis associated with type 2 diabetes mellitus (Acute) Ovarian cyst (Acute) Weight loss (Acute) Condition: Stable - Instructions Diet, Activity, Other Instructions: resume previous diet and activity. Follow up with Dr Valencia in 7 days Referrals: Ashleigh Valencia MD [Non Staff, Medical] - Wan Sifuentes MD [Staff Physician] - Juan Manuel Ng MD [Staff Physician] - Mima Dasilva MD [Staff Physician] - Disposition: HOME - Home Medications Comprehensive Discharge Medication List: Ambulatory Orders Aspirin [Aspirin EC] 81 mg PO DAILY 11/13/15 Metformin HCl 500 mg PO BID 08/25/16 Atorvastatin Ca [Lipitor] 80 mg PO HS #30 tablet 10/09/16 Labetalol HCl [Normodyne -] 200 mg PO BID #60 tablet 10/09/16 Ticagrelor [Brilinta -] 90 mg PO BID tablet 10/09/16 Metoclopramide HCl [Reglan] 10 mg PO TID #270 tablet 02/24/17 Pantoprazole Sodium 40 mg PO DAILY #90 tablet. 02/24/17 Ranolazine [Ranexa -] 500 mg PO BID tab 03/23/17 Escitalopram Oxalate [Lexapro -] mg PO DAILY 10/08/17 Polyethylene Glycol 3350 [Miralax 119 gm Btl -] 17 gm PO BID #1 bottle 10/16/17
[2017-10-16] MEDS ORDERED: TICAGRELOR 60 MG TABLET PO SCH (22:00)
--- NOTE | 2017-10-17 12:34 | PATH ---
Surgical Pathology Report Patient Name: BEVERLEY PARKER [facility]. Rec. #: [id number] /Age/Gender: 1980 (Age: 37) / F Account: [id number] Location: [address] [place] [address] Taken: 10/16/2017 Received: 10/16/2017 Reported: 10/17/2017 Physicians: Eric Rosario M.D. Specimen(s) Received A: BX DUODENUM B: BX GASTRIC ANTRUM C: BX ILEUM D: BX CECUM E: BX SIGMOID POLYP Clinical History Preoperative diagnosis: Weight loss, abdominal pain, colon cancer screening Postoperative diagnosis: Gastritis, GERD, colon polyps Final Diagnosis A. DUODENUM, SECOND PORTION AND BULB, BIOPSY: DUODENAL MUCOSA WITH NO PATHOLOGIC CHANGES. NO HISTOLOGIC EVIDENCE OF GLUTEN SENSITIVE ENTEROPATHY (CELIAC SPRUE) IDENTIFIED. B. STOMACH, ANTRUM, BIOPSY: GASTRIC ANTRAL MUCOSA WITH REACTIVE GASTROPATHY. IMMUNOSTAIN FOR H. PYLORI IS NEGATIVE. C. ILEUM, BIOPSY: SMALL INTESTINAL MUCOSA WITH NO PATHOLOGIC CHANGES. D. COLON, CECUM, BIOPSY: COLONIC MUCOSA WITH NO PATHOLOGIC CHANGES. NO ACTIVE COLITIS, ARCHITECTURAL DISTORTION, GRANULOMATA, OR DYSPLASIA IDENTIFIED. NO MICROSCOPIC COLITIS IDENTIFIED (NO LYMPHOCYTIC OR COLLAGENOUS COLITIS IDENTIFIED). E. COLON, SIGMOID, BIOPSY: COLONIC MUCOSA WITH EXTRAVASATION OF RED BLOOD CELLS WITHIN LAMINA PROPRIA, AND MILD HYPERPLASTIC CHANGES. NO ADENOMATOUS CHANGE IS IDENTIFIED. Electronically Signed Socrates Thorpe M.D. Gross Description A. Received in formalin, labeled "biopsy second portion of duodenum and duodenal bulb" are 5 colmenares, irregular portions of soft tissue ranging from 0.2-0.4 cm. in greatest dimension. The specimens are submitted in toto in one cassette. B. Received in formalin, labeled "biopsy gastric antrum" are 2 colmenares, irregular portions of soft tissue averaging 0.5 cm. in greatest dimension. The specimens are submitted in toto in one cassette. C. Received in formalin, labeled "biopsy ileum" are 2 colmenares, irregular portions of soft tissue measuring 0.4 and 0.7 cm. in greatest dimension. The specimens are submitted in toto in one cassette. D. Received in formalin, labeled "biopsy cecum" are 3 colmenares, irregular portions of soft tissue ranging from 0.1-0.4 cm. in greatest dimension. The specimens are submitted in toto in one cassette. E. Received in formalin, labeled "biopsy sigmoid polyp" are 2 colmenares, irregular portions of soft tissue measuring 0.2 and 0.5 cm. in greatest dimension. The specimens are submitted in toto in one cassette. 10/16/2017 [facility]10/16/2017
== END 2017-10-16 16:07 | disposition home or self-care (01) | DRG 74 ==
LOC: JER 19:29 → JERBED 23:09 → J6S 10-09 03:21
PROVIDERS: ADMIT Internal Medicine; ATTEND Internal Medicine
DX: E11.43 Type 2 diabetes mellitus with diabetic autonomic (poly)neuropathy (principal); I50.32 Chronic diastolic (congestive) heart failure; K31.84 Gastroparesis; R63.4 Abnormal weight loss; Z68.22 Body mass index [BMI] 22.0-22.9, adult; N83.209 Unspecified ovarian cyst, unspecified side; R10.9 Unspecified abdominal pain; I25.10 Atherosclerotic heart disease of native coronary artery without angina pectoris; D64.9 Anemia, unspecified; D57.3 Sickle-cell trait; Z87.891 Personal history of nicotine dependence; F41.9 Anxiety disorder, unspecified; F12.10 Cannabis abuse, uncomplicated; E78.5 Hyperlipidemia, unspecified; I11.0 Hypertensive heart disease with heart failure
CPT/HCPCS: 36415; 74177-TC; 76830-TC; 80048; 80053; 80307; 81003; 81015; 82150; 82533; 82550; 82553; 82607; 82656; 82962; 83036; 83497; 83516; 83519; 83540; 83550; 83615; 83690; 83735; 84100; 84156; 84166; 84484; 84703; 85025; 85651; 86140; 93005; 93010; 93306-TC; 99284-25; J0833

== ENCOUNTER 2017-12-16 19:29 | Observation (INO) | payer BC ==
--- NOTE | 2017-12-16 20:01 | PDOC ---
History of Present Illness - General Chief Complaint: Chest Pain Stated Complaint: CHEST PAIN Time Seen by Provider: 12/16/17 20:01 - History of Present Illness Initial Comments: 12/16/17 23:49 Patient is a 37 year old female with a significant past medical history of CAD s /p stents, CHF, HTN, Hyperlipidemia, bronchitis, chronic abdominal pain, Renal Insuff, Anxiety, Diabetes Mellitus c/b gastropareisis, who presents to the ED with complaints of diffuse chest pain that began earlier this evening at 5pm while at rest at home. Patient reports chest pain began 3 hours prior to ED arrival that she states is a 11/10 in intensity. She reports NBNB vomiting earlier today, but that she vomits almost daily. Patient reports taking 3 baby aspirin for chest pain with minimal relief, stating it was what i was instructed to do the last time this occurred. Patient states chest pain feels similar to her earlier heart attacks prompting her to come into the ED for further evaluation. Denies fevers, chill. Denies contact with sick individual, out of state travelling. Denies change in appetite. Denies any other symptoms. Allergies: Cephalexin monohydrate. Social history: No alcohol. No smoking. Former Marijuana use. Former Ecstasy use (Last 10/07/17) Surgical history: , Stent x4 (First Sep 2009, Last 2015). PMD: Dr. Valencia Seed Cutter: Dr. Ng [facility] Physician: Dr. Novoa Past History - Past Medical History Allergies/Adverse Reactions: Allergies Allergy/AdvReac Type Severity Reaction Status Date / Time cephalexin monohydrate Allergy Severe Hives Verified 10/08/17 19:37 [From Keflex] Home Medications: Ambulatory Orders Aspirin [Aspirin EC] 81 mg PO DAILY 11/13/15 Metformin HCl 500 mg PO BID 08/25/16 Atorvastatin Ca [Lipitor] 80 mg PO HS #30 tablet 10/09/16 Labetalol HCl [Normodyne -] 200 mg PO BID #60 tablet 10/09/16 Ticagrelor [Brilinta -] 90 mg PO BID tablet 10/09/16 Metoclopramide HCl [Reglan] 10 mg PO TID #270 tablet 02/24/17 Pantoprazole Sodium 40 mg PO DAILY #90 tablet. 02/24/17 Ranolazine [Ranexa -] 500 mg PO BID tab 03/23/17 Escitalopram Oxalate [Lexapro -] mg PO DAILY 10/08/17 Polyethylene Glycol 3350 [Miralax 119 gm Btl -] 17 gm PO BID #1 bottle 10/16/17 Anemia: No Asthma: No Cancer: (cervical ca) Cardiac Disorders: Yes (IA X 6) CVA: No COPD: No CHF: Yes Dementia: No Diabetes: Yes GI Disorders: Yes (GASTROPARESIS) Disorders: No HTN: Yes Hypercholesterolemia: Yes Liver Disease: No Psychiatric Problems: Yes (anxiety) Seizures: No Thyroid Disease: No - Surgical History Abdominal Surgery: No Appendectomy: No Cardiac Surgery: Yes (4 STENTS) Cholecystectomy: No Lung Surgery: No Neurologic Surgery: No Orthopedic Surgery: Yes (ROTATOR CUFF REPAIR) - Reproductive History (#): 5 Para: 0 Cervical CA: Yes Dysfunctional Uterine Bleeding: Yes Ectopic : Yes Endometrial CA: Yes Therapeutic (s) & number: Yes (1) Spontaneous : 4 - Immunization History Immunization Up to Date: Yes - Suicide/Smoking/Psychosocial Hx Smoking Status: Yes (QUIT 3 MONTHS AGO) Smoking History: Former smoker Have you smoked in the past 12 months: No Number of Cigarettes Smoked Daily: 4 If you are a former smoker, when did you quit?: 2015 Information on smoking cessation initiated: No 'Breaking Loose' booklet given: 05/30/17 Hx Alcohol Use: No Drug/Substance Use Hx: No Substance Use Type: None Hx Substance Use Treatment: No Review of Systems - Review of Systems Comments:: 12/16/17 23:49 GENERAL/CONSTITUTIONAL: No fever or chills. No weakness. HEAD, EYES, EARS, NOSE AND THROAT: No change in vision. No ear pain or discharge. No sore throat. GASTROINTESTINAL: +Vomiting. No nausea, diarrhea or constipation. GENITOURINARY: No dysuria, frequency, or change in urination. CARDIOVASCULAR: +Chest pain. No shortness of breath. RESPIRATORY: No cough, wheezing, or hemoptysis. MUSCULOSKELETAL: No joint or muscle swelling or pain. No neck or back pain. SKIN: No rash NEUROLOGIC: No headache, vertigo, loss of consciousness, or change in strength/ sensation. ENDOCRINE: No increased thirst. No abnormal weight change. HEMATOLOGIC/LYMPHATIC: No anemia, easy bleeding, or history of blood clots. ALLERGIC/IMMUNOLOGIC: No hives or skin allergy. *Physical Exam - Vital Signs Last Vital Signs Temp Pulse Resp BP Pulse Ox 89 20 157/93 100 12/16/17 19:31 12/16/17 19:31 12/16/17 19:31 12/16/17 19:31 - Physical Exam Comments: 12/16/17 23:50 GENERAL: Awake, alert, and fully oriented, in no acute distress HEAD: No signs of trauma EYES: PERRLA, EOMI, sclera anicteric, conjunctiva clear ENT: Auricles normal inspection, hearing grossly normal, nares patent, oropharynx clear without exudates. Moist mucosa NECK: Normal ROM, supple, no lymphadenopathy, JVD, or masses LUNGS: Breath sounds equal, clear to auscultation bilaterally. No wheezes, and no crackles HEART: Regular rate and rhythm, normal S1 and S2, no murmurs, rubs or gallops ABDOMEN: Soft, nontender, normoactive bowel sounds. No guarding, no rebound. No masses EXTREMITIES: Normal range of motion, no edema. No clubbing or cyanosis. No cords , erythema, or tenderness NEUROLOGICAL: Normal speech, cranial nerves intact, negative pronator drift, 5/ 5 strength in all 4 extremities, normal sensation to light touch in all 4 extremities, normal cerebellar exam, normal gait, normal reflexes and tone SKIN: Warm, Dry, normal turgor, no rashes or lesions noted. Heart Score/ECG Review #1 12/16/17 19:36 Twelve-lead EKG was performed and reviewed by me. Normal sinus rhythm, rate 78. Normal axis. <1mm-1mm ST depressions in leads 2 and V4 through V6. No ST elevations. Compared to previous EKG from 10/15/17, these changes are new. #2 12/16/17 22:38 Twelve-lead EKG was performed and reviewed by me. Normal sinus rhythm, rate 68. No ST elevations. ST depression seemed to have improved compared to previous EKG done earlier today. ED Treatment Course - LABORATORY CBC & Chemistry Diagram: 12/16/17 20:33 12/16/17 20:33 Medical Decision Making - Medical Decision Making 12/16/17 21:35 37-year-old female with a history of diabetes, hypertension, hyperlipidemia, and CAD status post stents presents to the emergency Department with diffuse chest pain since 5 PM. Vitals with mild hypertension to the 150 systolic. Exam unremarkable. EKG with new sub-1 mm to [address] depressions in V4 through V6 as well as in lead II. These changes are new compared to EKG from September 2017. Story is concerning for acute coronary syndrome. Chest pain did begin after vomiting, and thus Boerhaave's syndrome is a consideration although patient does not appear toxic, vitals are normal, and exam with no crepitus. Story more likely to be consistent with ACS given the EKG changes and quality of pain. Patient reports that is similar to her previous episodes of IA. 12/16/17 22:44 Labs including troponin unremarkable. Chest x-ray with normal mediastinum and no radiographic evidence of Boerhaave syndrome. Pain has significantly improved after morphine. Pt well appearing. Case discussed with Dr. Matamoros, patient accepted for admission to telemetry. Case discussed in detail with admitting physician including history, physical exam and ancillary studies. Admitting physician has assumed care for the patient, will follow all pending diagnostics and will complete the evaluation and treatment. *DC/Admit/Observation/Transfer Diagnosis at time of Disposition: Chest pain - Discharge Dispostion Condition at time of disposition: Stable Admit: Yes - Referrals Referrals: Ashleigh Valencia MD [Primary Care Provider] - - Patient Instructions - Post Discharge Activity - Attestations Physician Attestion: 12/16/17 22:43 I, Dr. Crystal Bartlett MD, attest that this document has been prepared under my direction and personally reviewed by me in its entirety. I further attest, that it accurately reflects all work, treatment, procedures and medical decision -making performed by me.
[2017-12-16 20:44] LABS: BASO % 1.1 % (0-2.0); EOS % 0.5 % (0-4.5); HEMATOCRIT 26.6 % (32.4-45.2); HEMOGLOBIN 9.1 GM/dL (10.7-15.3); LYMPH % 23.1 % (8-40); MCHC 34.4 g/dl (32.0-36.0); MEAN CELL VOLUME 72.6 fl (80-96); MEAN PLT VOLUME 6.8 fl (7.5-11.1); MONO % 10.4 % (3.8-10.2); NEUT % 64.9 % (42.8-82.8); PLATELET COUNT 402 K/MM3 (134-434); RBC 3.66 M/mm3 (3.60-5.2); RDW 22.2 % (11.6-15.6); WHITE BLOOD COUNT 6.5 K/mm3 (4.0-10.0)
[2017-12-16 20:46] LABS: ADD RBC MORPHOLOGY YES
[2017-12-16] MEDS ORDERED: morphine CARPU-JECT 4 MG/1 ML DISP.SYRIN IVPUSH ONE (21:06)
[2017-12-16 21:12] LABS: ANION GAP 5 (8-16); BILIRUBIN,TOTAL 0.1 mg/dL (0.2-1.0); BLOOD UREA NITROGEN 11 mg/dL (7-18); CHLORIDE 104 mmol/L (98-107); CO2 26 mmol/L (21-32); CREATININE 0.9 mg/dL (0.55-1.02); GLUCOSE,RANDOM 154 mg/dL (74-106); POTASSIUM 4.2 mmol/L (3.5-5.1); SGOT/AST 13 U/L (15-37); SGPT/ALT 20 U/L (12-78); SODIUM 135 mmol/L (136-145); TOT PROT 7.5 g/dl (6.4-8.2)
[2017-12-16 21:13] LABS: ALK PHOS 47 U/L (45-117); ANISOCYTOSIS 2+; LIPASE 154 U/L (73-393); MACROCYTOSIS 2+; MAGNESIUM 1.7 mg/dL (1.8-2.4); OVALOCYTE 1+; PLATELET ESTIMATE INCREASED; TARGET CELLS 1+
[2017-12-16] MEDS ORDERED: morphine SULFATE 4 MG/ML VIAL ONE (21:18)
[2017-12-16 21:35] LABS: INR 1.04 (0.82-1.09); PROTHROMBIN TIME (PATIENT) 11.7 SEC (9.98-11.88)
[2017-12-16 21:38] LABS: ACTIVATED PTT 26.5 SECONDS (26.9-34.4)
--- NOTE | 2017-12-16 23:07 | HP ---
Admitting History and Physical - Primary Care Physician PCP: Ashleigh Valencia - Admission Chief Complaint: Chest Pain History of Present Illness: This is a 37 y/o woman with a significant medical history of MIs (8), CAD s/p Stents x4, CHF, HTN, DM, Diabetic Gastroparesis, Chronic Abdominal pain, Renal Insufficiency, Anxiety, Panic Attacks. Who presents to the ED with chest pain x today. Patient reports that the pain started after her vomiting. She describes it as burning, sharp and achy. History Source: Patient, Medical Record Limitations to Obtaining History: No Limitations - Past Medical History Cardiovascular: Yes: CAD, CHF, HTN, Hyperlipdemia, NM Pulmonary: Yes: Bronchitis Gastrointestinal: Yes: Other (diabetic gastroparesis, chronic abdominal pain) Renal/: Yes: Renal Inusuff ...LMP: 08/21/16 Psych: Yes: Anxiety, Panic Musculoskeletal: Yes: Other (rt shoulder pain) Endocrine: Yes: Diabetes Mellitus - Past Surgical History Past Surgical History: Yes: Colonoscopy, , Stent, Upper Endoscopy - Smoking History Smoking history: Former smoker Have you smoked in the past 12 months: No Aproximately how many cigarettes per day: 4 If you are a former smoker, when did you quit?: 2015 - Alcohol/Substance Use Hx Alcohol Use: No History of Substance Use: reports: Marijuana, Prescription - Social History Usual Living Arrangement: Yes: With Parent ADL: Independent History of Recent Travel: No Home Medications - Allergies Allergies/Adverse Reactions: Allergies Allergy/AdvReac Type Severity Reaction Status Date / Time cephalexin monohydrate Allergy Severe Hives Verified 10/08/17 19:37 [From Keflex] - Home Medications Home Medications: Ambulatory Orders Aspirin [Aspirin EC] 81 mg PO DAILY 11/13/15 Metformin HCl 500 mg PO BID 08/25/16 Atorvastatin Ca [Lipitor] 80 mg PO HS #30 tablet 10/09/16 Labetalol HCl [Normodyne -] 200 mg PO BID #60 tablet 10/09/16 Metoclopramide HCl [Reglan] 10 mg PO TID #270 tablet 02/24/17 Pantoprazole Sodium 40 mg PO DAILY #90 tablet. 02/24/17 Escitalopram Oxalate [Lexapro -] 20 mg PO DAILY 10/08/17 Polyethylene Glycol 3350 [Miralax 119 gm Btl -] 17 gm PO BID #1 bottle 10/16/17 Family Disease History - Family Disease History Family Disease History: Diabetes: Mother (htn) Review of Systems - Review of Systems Constitutional: reports: No Symptoms Eyes: reports: No Symptoms HENT: reports: No Symptoms Neck: reports: No Symptoms Cardiovascular: reports: Chest Pain Respiratory: reports: No Symptoms Gastrointestinal: reports: Abdominal Pain, Nausea, Vomiting Genitourinary: reports: No Symptoms Breasts: reports: No Symptoms Reported Musculoskeletal: reports: No Symptoms Integumentary: reports: No Symptoms Neurological: reports: No Symptoms Endocrine: reports: No Symptoms Hematology/Lymphatic: reports: No Symptoms Psychiatric: reports: No Symptoms Physical Examination Vital Signs: Vital Signs Temperature Pulse Rate 89 12/16/17 19:31 Respiratory Rate 20 12/16/17 19:31 Blood Pressure 157/93 12/16/17 19:31 O2 Sat by Pulse Oximetry (%) 100 12/16/17 19:31 Constitutional: Yes: No Distress, Calm, Thin Eyes: Yes: Conjunctiva Clear, EOM Intact, PERRL HENT: Yes: WNL, Atraumatic, Normocephalic Neck: Yes: WNL, Supple, Trachea Midline Cardiovascular: Yes: WNL, Regular Rate and Rhythm, S1, S2, Other (CP reproducible on palpation) Respiratory: Yes: WNL, Regular, CTA Bilaterally Gastrointestinal: Yes: Normal Bowel Sounds, Soft. No: Tenderness, Epigastrium ...Rectal Exam: Yes: Deferred Renal/: Yes: WNL Breast(s): Yes: WNL Musculoskeletal: Yes: WNL Extremities: Yes: WNL Edema: No Peripheral Pulses WNL: Yes Integumentary: Yes: WNL Neurological: Yes: WNL, Alert, Oriented, Cran Nerves II-XII Intact ...Motor Strength: WNL Psychiatric: Yes: WNL, Alert, Oriented Labs: CBC, BMP 12/16/17 20:33 12/16/17 20:33 Troponin, BNP 12/16/17 12/16/17 12/17/17 20:33 20:33 01:41 Troponin I < 0.02 0.18 H B-Natriuretic Peptide 137.40 H Intake & Output 12/14/17 12/15/17 12/16/17 12/17/17 23:59 23:59 23:59 23:59 Intake Total 120 Balance 120 Weight 68.039 kg Imaging - Results Chest X-ray: Report Reviewed (No acute pathology), Image Reviewed EKG: Report Reviewed (#1 NSR, left atrial enlargement, nonspecific ST& T wave abnormality #[address] or TWI QT/QTc 398/423) Problem List - Problems (1) Chest pain Code(s): R07.9 - CHEST PAIN, UNSPECIFIED (2) Unstable angina Code(s): I20.0 - UNSTABLE ANGINA (3) Coronary artery disease Code(s): I25.10 - ATHSCL HEART DISEASE OF [place] CORONARY ARTERY W/O ANG PCTRS Qualifiers: Coronary Disease-Associated Artery/Lesion type: [place] artery [place] vs. transplanted heart: [place] heart Associated angina: with unspecified angina Qualified Code(s): I25.119 - Atherosclerotic heart disease of [place] coronary artery with unspecified angina pectoris (4) Chronic diastolic (congestive) heart failure Code(s): I50.32 - CHRONIC DIASTOLIC (CONGESTIVE) HEART FAILURE (5) Hypomagnesemia Code(s): E83.42 - HYPOMAGNESEMIA (6) Anxiety Code(s): F41.9 - ANXIETY DISORDER, UNSPECIFIED (7) Diabetic gastroparesis associated with type 2 diabetes mellitus Code(s): E11.43 - TYPE 2 DIABETES W DIABETIC AUTONOMIC (POLY)NEUROPATHY; K31.84 - GASTROPARESIS (8) Hyperlipidemia Code(s): E78.5 - HYPERLIPIDEMIA, UNSPECIFIED Qualifiers: Hyperlipidemia type: unspecified Qualified Code(s): E78.5 - Hyperlipidemia , unspecified (9) Hypertension Code(s): I10 - ESSENTIAL (PRIMARY) HYPERTENSION Qualifiers: Hypertension type: essential hypertension Qualified Code(s): I10 - Essential (primary) hypertension (10) Cannabis abuse Code(s): F12.10 - CANNABIS ABUSE, UNCOMPLICATED (11) DVT prophylaxis Code(s): IPT9953 - Assessment/Plan This is a 37 y/o woman who presents to the ED with chest pain. Placed in Tele Observation for Chest Pain r/o ACS, Unstable Angina. Plan: 1. Cardiology- Chest Pain r/o ACS vs Unstable Angina, continue cardiac monitoring, Heart Score 4, serial enzymes, Appreciate Cardiology consult, Continue Asa, Offered Nitro SL or paste, patient adamantly refused. Morphine given in ED, will continue judiciously, Tylenol prn, EKG- NSR left atrial enlargement, ST & TW abnormality, changes compared to prior study. #2- NSR no ST or TWI, Will repeat EKG in am, Last echo 10/11/17 showed- LVF normal, no regional wall abnormalities, mild dilated LA, trace MR, TR, AV normal. Possible transfer to Tertiary Facility for cath, will keep NPO until eval by cardiology, Marijuana cessation 2. CAD- MIs x8, s/p Stents x4, continue Asa 3. Hypomagnesemia- Likely secondary to vomiting vs PPI use, Will replete, continue cardiac monitoring 4. Hypertension- Stable, Monitor BP, Continue home med with parameters, monitor renal function 5. CHF- stable, Chest Xray- no acute pathology, BNP 137, will continue to monitor and treat with interventions accordingly 6. Endocrinology- Diabetes Mellitus, Gastroparesis- stable, BGMs, Hold meds 2/2 NPO 7. Nephrology- Renal Insufficiency, Cr 0.9 at baseline, avoid nephrotoxic agents , repeat BMP in am 8. Psych- Anxiety, Panic Attacks, continue home med 9. FEN- Mag repleted, NPO 10. DVT ppx- OOB, SCDs, Consider ACs if LOS > 48 hrs Code Status: Full Code Dispo: Observation Visit type - Emergency Visit Emergency Visit: Yes ED Registration Date: 12/16/17 Care time: The patient presented to the Emergency Department on the above date and was hospitalized for further evaluation of their emergent condition. - New Patient This patient is new to me today: Yes Date on this admission: 12/16/17 - Critical Care Critical Care patient: No Hospitalist Screening - Colonoscopy Questionnaire Colonoscopy Questionnaire: Colonoscopy Questionnaire - Patient: 50 - 75 years old and never had a screening colonoscopy: No History of colon or rectal polyps, or CA: Yes History of IBD, Crohn's disease or UC: No History of abdominal radiation therapy as a child: No - Relative: 1 with colon or rectal CA, or polyps at age 60 or younger: No Colon or rectal CA diagnosed at age 45 or younger: No Multiple relatives with colon or rectal CA: No - Outcome: Screening Result: Positive Screen
[2017-12-17 00:27] LABS: URINE APPEARANCE SLCLOUDY; URINE BILIRUBIN NEGATIVE (<2.0 mg/dL); URINE BLOOD 3+ (NEGATIVE); URINE COLOR LTYELLOW; URINE GLUCOSE (UA) NEGATIVE (NEGATIVE); URINE KETONE NEGATIVE (NEGATIVE); URINE LEUK ESTERASE TRACE (NEGATIVE); URINE NITRITE NEGATIVE (NEGATIVE); URINE PROTEIN NEGATIVE (NEGATIVE); URINE UROBILINOGEN NEGATIVE mg/dL (0.2-1.0)
[2017-12-17 00:36] LABS: EPI CELLS MODERATE /HPF (FEW); URINE BACTERIA RARE /hpf (NONE SEEN); URINE MUCUS RARE
[2017-12-17 00:40] LABS: COCAINE, UR NEGATIVE ng/ml (CUTOFF=300); METHADONE, UR NEGATIVE ng/ml (CUTOFF=300); PHENCYCLIDINE,URINE NEGATIVE ng/ml (CUTOFF=25); URINE AMPHETAMINES NEGATIVE ng/ml (CUTOFF=500); URINE BARBITURATES NEGATIVE ng/ml (CUTOFF=200); URINE BENZODIAZEPINES NEGATIVE ng/ml (CUTOFF=200)
[2017-12-17 00:41] LABS: OPIATES, URI POSITIVE ng/ml (CUTOFF=300)
[2017-12-17] MEDS ORDERED: morphine CARPU-JECT 2 MG/1 ML DISP.SYRIN IVPUSH ONE (01:33)
[2017-12-17] MEDS ORDERED: morphine SULFATE 4 MG/ML VIAL IVPUSH ONE (01:33)
[2017-12-17] MEDS ORDERED: morphine SULFATE 4 MG/ML VIAL ONE (01:48)
[2017-12-17] MEDS ORDERED: ACETAMINOPHEN 1000 MG/100 ML VIAL (NON FORMULARY) IVPB ONE (05:10)
[2017-12-17] MEDS ORDERED: ACETAMINOPHEN INJECTION 100 ML IVPB ONE (05:27)
[2017-12-17 07:49] LABS: ANION GAP 5 (8-16); BLOOD UREA NITROGEN 8 mg/dL (7-18); CHLORIDE 103 mmol/L (98-107); CO2 27 mmol/L (21-32); CREATININE 0.7 mg/dL (0.55-1.02); GLUCOSE,RANDOM 105 mg/dL (74-106); POTASSIUM 3.7 mmol/L (3.5-5.1); SODIUM 135 mmol/L (136-145)
[2017-12-17 08:17] LABS: BASO % 0.7 % (0-2.0); EOS % 1.2 % (0-4.5); HEMATOCRIT 26.6 % (32.4-45.2); HEMOGLOBIN 8.7 GM/dL (10.7-15.3); LYMPH % 35.4 % (8-40); MCH 23.9 pg (25.7-33.7); MCHC 32.6 g/dl (32.0-36.0); MEAN CELL VOLUME 73.5 fl (80-96); MEAN PLT VOLUME 6.8 fl (7.5-11.1); MONO % 13.5 % (3.8-10.2); NEUT % 49.2 % (42.8-82.8); PLATELET COUNT 389 K/MM3 (134-434); RBC 3.62 M/mm3 (3.60-5.2); WHITE BLOOD COUNT 5.4 K/mm3 (4.0-10.0)
[2017-12-17] MEDS ORDERED: ASPIRIN 81 MG CHEWABLE TABLETS ONE (09:54)
[2017-12-17] MEDS ORDERED: MAGNESIUM SULF 50% (8.12 MEQ/2 ML-1 GM VIAL) ONE (09:54)
[2017-12-17] MEDS ORDERED: PANTOPRAZOLE 40 MG TABLET (FP) ONE (09:54)
[2017-12-17] MEDS ORDERED: ESCITALOPRAM OXALATE 10 MG TABLET (FP) ONE (09:55)
[2017-12-17] MEDS ORDERED: MAGNESIUM SULF 50% (8.12 MEQ/2 ML-1 GM VIAL) IVPB ONE (10:00)
[2017-12-17] MEDS: ESCITALOPRAM OXALATE 20 MG TABLET (FP) PO SCH (10:02)
[2017-12-17] MEDS: ASPIRIN COATED 81 MG TABLET.EC PO SCH (10:02)
[2017-12-17] MEDS: PANTOPRAZOLE 40 MG TABLET (FP) PO SCH (10:02)
[2017-12-17] MEDS: LABETALOL HCL 200 MG TABLET (FP) PO SCH ×2 (10:07→22:13)
--- NOTE | 2017-12-17 12:49 | PN ---
Progress Note, Physician Chief Complaint: chest pain - Current Medication List Current Medications: Active Medications Aspirin (Ecotrin -) 81 mg PO DAILY [facility] Last Admin: 12/17/17 10:02 Dose: 81 mg Atorvastatin Calcium (Lipitor -) 80 mg PO [facility] Escitalopram Oxalate (Lexapro -) 20 mg PO DAILY [facility] Last Admin: 12/17/17 10:02 Dose: 20 mg Labetalol HCl (Normodyne -) 200 mg PO BID [facility] Last Admin: 12/17/17 10:07 Dose: 200 mg Pantoprazole Sodium (Protonix -) 40 mg PO DAILY [facility] Last Admin: 12/17/17 10:02 Dose: 40 mg - Objective Vital Signs: Vital Signs Temperature 98.1 F 12/17/17 07:30 Pulse Rate 63 12/17/17 10:00 Respiratory Rate 18 12/17/17 10:00 Blood Pressure 126/60 12/17/17 10:00 O2 Sat by Pulse Oximetry (%) 100 12/17/17 10:00 Constitutional: Yes: Well Nourished, No Distress, Calm Eyes: Yes: WNL, Conjunctiva Clear, EOM Intact HENT: Yes: WNL, Atraumatic, Normocephalic Neck: Yes: WNL, Supple, Trachea Midline Cardiovascular: Yes: WNL, Regular Rate and Rhythm Respiratory: Yes: WNL, Regular, CTA Bilaterally Gastrointestinal: Yes: WNL, Normal Bowel Sounds, Soft ...Rectal Exam: Yes: Deferred Edema: LLE: Trace, RLE: Trace Integumentary: Yes: WNL Labs: CBC, BMP 12/17/17 06:45 12/17/17 06:45 INR, PTT INR 1.04 (0.82-1.09) 12/16/17 20:33 Assessment/Plan Chest Pain r/o ACS vs Unstable Angina, continue cardiac monitoring, - c/w serial enzymes Cardiology consult Continue Asa, NTG sub-lingual prn Morphine given in ED, will continue judiciously, Tylenol prn, EKG- NSR left atrial enlargement, ST & TW abnormality, changes compared to prior study x 3 ecg c/w ticagrelor BID c/w aspirin c/w ranexa 500mg BID 2. CAD- MIs x8, s/p Stents x4, continue Asa 3. Hypomagnesemia- Likely secondary to vomiting vs PPI use, Will replete, continue cardiac monitoring 4. Hypertension- Stable, Monitor BP, Continue home med with parameters, monitor renal function 5. CHF- stable, Chest Xray- no acute pathology, BNP 137, will continue to monitor and treat with interventions accordingly 6. Endocrinology- Diabetes Mellitus, Gastroparesis- stable, BGMs, Hold meds 2/2 NPO 7. DVT ppx- OOB, SCDs, Consider ACs if LOS > 48 hr
--- NOTE | 2017-12-17 12:55 | CON.CARD ---
Consult Consult Specialty:: cardiology Reason for Consultation:: chest pain - History of Present Illness History of Present Illness: Patient is a 37 year old black female with a significant past medical history of CAD (? hx multiple MIs), s/p coronary stents, diastolic CHF, HTN, Hyperlipidemia, bronchitis, chronic abdominal pain, Renal Insuff, Anxiety/Panic , Diabetes Mellitus with gastropareisis, LMP 2016, who presents to the ED with complaints of diffuse chest pain that began earlier this evening at 5pm while at rest at home. Patient reports chest pain began 3 hours prior to ED arrival that she states is a 10/10 in intensity. She reports novomiting earlier today, but that she vomits almost daily. Patient reports taking 3 baby aspirin for chest pain with minimal relief, stating it was what i was instructed to do the last time this occurred. Patient states chest pain feels similar to her earlier heart attacks prompting her to come into the ED for further evaluation. Pt says "gastroparesis" has caused her to lose over 50 lbs in the past year through lack of appetite. Allergies: Cephalexin monohydrate. Social history: No alcohol.+ cigarette smoking. daily Marijuana use. Former Ecstasy use (Last 10/07/17) Surgical history: , Stent x4 (First Sep 2009, Last 2015). PMD: Dr. Valencia [employer] Equipment Repairer: Dr. Ng [facility] Physician: Dr. Herbert - History Source History Provided By: Patient, Medical Record Limitations to Obtaining History: No Limitations - Past Medical History Cardio/Vascular: Yes: CAD, CHF, HTN, Hyperlipdemia, IN Pulmonary: Yes: Bronchitis Gastrointestinal: Yes: Other (diabetic gastroparesis, chronic abdominal pain) Renal/: Yes: Renal Inusuff ...LMP: 08/21/16 Psych: Yes: Anxiety, Panic Musculoskeletal: Yes: Other (rt shoulder pain) Endocrine: Yes: Diabetes Mellitus - Past Surgical History Past Surgical History: Yes: Colonoscopy, , Stent, Upper Endoscopy - Alcohol/Substance Use Hx Alcohol Use: No History of Substance Use: reports: Marijuana, Prescription Date of Last Use: 10/07/17 (ecstasy) - Smoking History Smoking history: Former smoker Have you smoked in the past 12 months: No Aproximately how many cigarettes per day: 4 If you are a former smoker, when did you quit?: 2015 - Social History Usual Living Arrangement: Alone ADL: Independent History of Recent Travel: No Home Medications - Allergies Allergies/Adverse Reactions: Allergies Allergy/AdvReac Type Severity Reaction Status Date / Time cephalexin monohydrate Allergy Severe Hives Verified 10/08/17 19:37 [From Keflex] - Home Medications Home Medications: Ambulatory Orders Aspirin [Aspirin EC] 81 mg PO DAILY 11/13/15 Metformin HCl 500 mg PO BID 08/25/16 Atorvastatin Ca [Lipitor] 80 mg PO HS #30 tablet 10/09/16 Labetalol HCl [Normodyne -] 200 mg PO BID #60 tablet 10/09/16 Metoclopramide HCl [Reglan] 10 mg PO TID #270 tablet 02/24/17 Pantoprazole Sodium 40 mg PO DAILY #90 tablet. 02/24/17 Escitalopram Oxalate [Lexapro -] 20 mg PO DAILY 10/08/17 Polyethylene Glycol 3350 [Miralax 119 gm Btl -] 17 gm PO BID #1 bottle 10/16/17 Family Disease History - Family Disease History Family Disease History: Diabetes: Mother (htn) Review of Systems - Review of Systems Constitutional: reports: Weakness Eyes: reports: No Symptoms HENT: reports: No Symptoms Neck: reports: No Symptoms Cardiovascular: reports: Chest Pain Respiratory: reports: SOB on Exertion Gastrointestinal: reports: Other ("gastroparesis"; little appetite) Genitourinary: reports: No Symptoms Breasts: reports: No Symptoms Reported Musculoskeletal: reports: Muscle Weakness Integumentary: reports: No Symptoms Neurological: reports: Other Endocrine: reports: Other (weight loss; decreased appetite; hx "juvenile DM" since age 8) Psychiatric: reports: Anxiety, Panic, Other (substance abuse) - Risk Factors Known Risk Factors: Yes: Diabetes Mellitus, Hypercholesterolemia, Hypertension, Prior IN /Emb Stroke, Race, Smoking, Other (substance abuse) Vital Signs: Vital Signs Temperature 98.1 F 12/17/17 07:30 Pulse Rate 63 12/17/17 10:00 Respiratory Rate 12/17/17 10:00 Blood Pressure 126/60 12/17/17 10:00 O2 Sat by Pulse Oximetry (%) 100 12/17/17 10:00 Constitutional: Yes: Anxious, Thin Eyes: Yes: WNL HENT: Yes: WNL Neck: Yes: WNL Respiratory: Yes: Regular Gastrointestinal: Yes: Soft Renal/: No: Anuria Cardiovascular: Yes: Bradycardia JVD: No Carotid Bruit: No PMI: Non-Displaced Heart Sounds: Yes: S1, S2 Musculoskeletal: Yes: WNL Extremities: Yes: WNL Edema: No Peripheral Pulses WNL: Yes Integumentary: Yes: WNL Neurological: Yes: WNL Psychiatric: Yes: Other - Other Data Labs, Other Data: CBC, BMP 12/17/17 06:45 12/17/17 06:45 INR, PTT INR 1.04 (0.82-1.09) 12/16/17 20:33 Troponin, BNP 12/16/17 12/16/17 12/17/17 20:33 20:33 01:41 Troponin I < 0.02 0.18 H B-Natriuretic Peptide 137.40 H 12/17/17 06:45 Troponin I 0.28 H B-Natriuretic Peptide Troponin, BNP 12/16/17 12/16/17 12/17/17 20:33 20:33 01:41 Troponin I < 0.02 0.18 H B-Natriuretic Peptide 137.40 H 12/17/17 06:45 Troponin I 0.28 H B-Natriuretic Peptide Ejection Fraction %: LVEF > or = 40 % Imaging - Results Chest X-ray: Pending EKG: Image Reviewed (sinus bradycardia; otherwise, WNL) Problem List - Problems (1) Chest pain Assessment/Plan: 1st TNi 0.02; fu serially. EKG: sinus bradycardia; otherwise normal. Stress ECHO 2016: no ischemia; fair functional capacity. Code(s): R07.9 - CHEST PAIN, UNSPECIFIED (2) Anxiety Code(s): F41.9 - ANXIETY DISORDER, UNSPECIFIED (3) Chronic diastolic (congestive) heart failure Code(s): I50.32 - CHRONIC DIASTOLIC (CONGESTIVE) HEART FAILURE (4) Cyclic vomiting syndrome Code(s): G43.A0 - CYCLICAL VOMITING, NOT INTRACTABLE (5) Diabetic gastroparesis associated with type 2 diabetes mellitus Code(s): E11.43 - TYPE 2 DIABETES W DIABETIC AUTONOMIC (POLY)NEUROPATHY; K31.84 - GASTROPARESIS (6) Cannabis abuse Assessment/Plan: pt says she does not want to give this up. Code(s): F12.10 - CANNABIS ABUSE, UNCOMPLICATED (7) Diabetes mellitus Assessment/Plan: since age 8. Pt says she no longer needs insulin; on ?Metformin. HGBA1c 8.1 (09/2017). Suggest f/u with flat locker. Code(s): E11.9 - TYPE 2 DIABETES MELLITUS WITHOUT COMPLICATIONS Qualifiers: Diabetes mellitus type: type 2 Diabetes mellitus complication status: with kidney complications Diabetes mellitus complication detail: with chronic kidney disease Chronic kidney disease stage: stage 3 (moderate) (8) Hyperlipidemia Code(s): E78.5 - HYPERLIPIDEMIA, UNSPECIFIED Qualifiers: Hyperlipidemia type: unspecified Qualified Code(s): E78.5 - Hyperlipidemia , unspecified (9) Hypertension Code(s): I10 - ESSENTIAL (PRIMARY) HYPERTENSION Qualifiers: Hypertension type: essential hypertension Qualified Code(s): I10 - Essential (primary) hypertension (10) Substance abuse Assessment/Plan: Ecstasy (reportedly last used 09/2017); chronic marijuana. Code(s): F19.10 - OTHER PSYCHOACTIVE SUBSTANCE ABUSE, UNCOMPLICATED (11) Smokes cigarettes Assessment/Plan: consider nicotine patch (?or Wellbutrin). Code(s): F17.210 - NICOTINE DEPENDENCE, CIGARETTES, UNCOMPLICATED (12) Anemia Code(s): D64.9 - ANEMIA, UNSPECIFIED
[2017-12-17] MEDS ORDERED: ONDANSETRON 4 MG TABLET PO ONE (13:04)
[2017-12-17] MEDS ORDERED: ONDANSETRON *ODT* 4 MG TABLET ONE ×2 (13:05→13:06)
[2017-12-17] MEDS: ISOSORBIDE MONONITRATE 30 MG TAB.SR.24H (FP) PO SCH (15:06)
[2017-12-17] MEDS: RANOLAZINE E.R. 500 MG TABLET (FP) PO SCH ×2 (15:06→22:13)
[2017-12-17] MEDS ORDERED: ACETAMINOPHEN 1000 MG/100 ML VIAL (NON FORMULARY) IVPB PRN (15:08)
--- NOTE | 2017-12-17 15:55 | EKG ---
Test Reason : Blood Pressure : / mmHG Vent. Rate : 058 BPM Atrial Rate : 058 BPM P-R Int : 162 ms QRS Dur : 082 ms QT Int : 428 ms P-R-T Axes : 056 051 042 degrees QTc Int : 420 ms SINUS BRADYCARDIA OTHERWISE NORMAL ECG WHEN COMPARED WITH ECG OF 16-DEC-2017 22:37, NO SIGNIFICANT CHANGE WAS FOUND Confirmed by MD GONZALEZ MOYSES ([id number]) on 12/17/2017 3:55:01 PM Referred By: Confirmed By:MAUREEN GONZALEZ MD
[2017-12-17 15:57] VITALS: BMI 21.4
--- NOTE | 2017-12-17 16:05 | EKG ---
Test Reason : Blood Pressure : / mmHG Vent. Rate : 068 BPM Atrial Rate : 068 BPM P-R Int : 154 ms QRS Dur : 084 ms QT Int : 398 ms P-R-T Axes : 041 030 046 degrees QTc Int : 423 ms NORMAL SINUS RHYTHM LEFT ATRIAL ENLARGEMENT BORDERLINE ECG Confirmed by MD LISA, MAUREEN ([id number]) on 12/17/2017 4:04:54 PM Referred By: Confirmed By:MAUREEN GONZALEZ MD
[2017-12-17] MEDS ORDERED: ATORVASTATIN CA 80 MG TABLET (FP) PO SCH (22:00)
[2017-12-17] MEDS ORDERED: diphenhydrAMINE HCL 25 MG CAPSULE (FP) PO ONE (23:00)
[2017-12-18] MEDS ORDERED: diphenhydrAMINE HCL 25 MG CAPSULE (FP) PO ONE (03:54)
--- NOTE | 2017-12-18 04:12 | PN ---
Progress Note, Physician Chief Complaint: Pt A&Ox3; c/o lack of appetite; no further chest pain. History of Present Illness: Patient is a 37 year old black female with a significant past medical history of CAD (? hx multiple MIs), s/p coronary stents, diastolic CHF, HTN, Hyperlipidemia, bronchitis, chronic abdominal pain, Renal Insuff, Anxiety/Panic , Diabetes Mellitus with gastropareisis, LMP 2016, who presents to the ED with complaints of diffuse chest pain that began earlier this evening at 5pm while at rest at home. Patient reports chest pain began 3 hours prior to ED arrival that she states is a 10/10 in intensity. She reports novomiting earlier today, but that she vomits almost daily. Patient reports taking 3 baby aspirin for chest pain with minimal relief, stating it was what i was instructed to do the last time this occurred. Patient states chest pain feels similar to her earlier heart attacks prompting her to come into the ED for further evaluation. Pt says "gastroparesis" has caused her to lose over 50 lbs in the past year through lack of appetite. Allergies: Cephalexin monohydrate. Social history: No alcohol.+ cigarette smoking. daily Marijuana use. Former Ecstasy use (Last 10/07/17) Surgical history: , Stent x4 (First Sep 2009, Last 2015). PMD: Dr. Valencia Supervisor Sintering Plant: Dr. Ng [facility] Physician: Dr. Herbert - Current Medication List Current Medications: Active Medications Acetaminophen (Ofirmev Injection -) 1,000 mg IVPB Q8H PRN PRN Reason: PAIN Last Admin: 12/17/17 15:24 Dose: 1,000 mg Aspirin (Ecotrin -) 81 mg PO DAILY [facility] Last Admin: 12/17/17 10:02 Dose: 81 mg Atorvastatin Calcium (Lipitor -) 80 mg PO HS [facility] Last Admin: 12/17/17 22:13 Dose: 80 mg Escitalopram Oxalate (Lexapro -) 20 mg PO DAILY [facility] Last Admin: 12/17/17 10:02 Dose: 20 mg Isosorbide Mononitrate (Imdur -) 30 mg PO DAILY [facility] Last Admin: 12/17/17 15:06 Dose: 30 mg Labetalol HCl (Normodyne -) 200 mg PO BID [facility] Last Admin: 12/17/17 22:13 Dose: 200 mg Pantoprazole Sodium (Protonix -) 40 mg PO DAILY [facility] Last Admin: 12/17/17 10:02 Dose: 40 mg Ranolazine (Ranexa -) 500 mg PO BID [facility] Last Admin: 12/17/17 22:13 Dose: 500 mg - Objective Vital Signs: Vital Signs Temperature 98 F 12/18/17 02:00 Pulse Rate 56 L 12/18/17 02:00 Respiratory Rate 18 12/18/17 02:00 Blood Pressure 139/72 12/18/17 02:00 O2 Sat by Pulse Oximetry (%) 100 12/17/17 22:00 Constitutional: Yes: Anxious Eyes: Yes: WNL HENT: Yes: WNL Neck: Yes: WNL Cardiovascular: Yes: S1, S2 Respiratory: Yes: WNL Gastrointestinal: Yes: Soft ...Rectal Exam: Yes: Deferred Genitourinary: No: Anuria Breast(s): Yes: WNL Musculoskeletal: Yes: WNL Extremities: Yes: WNL Edema: No Peripheral Pulses WNL: Yes Integumentary: Yes: WNL Psychiatric: Yes: Other Labs: CBC, BMP 12/17/17 06:45 12/17/17 06:45 INR, PTT INR 1.04 (0.82-1.09) 12/16/17 20:33 Abnormal Lab Results 12/17/17 12/17/17 12/17/17 06:45 06:45 15:05 Hgb 8.7 L Hct 26.6 L MCV 73.5 L MCH 23.9 L RDW 22.0 H MPV 6.8 L Monocytes % 13.5 H Sodium 135 L Anion Gap 5 L Troponin I 0.28 H 0.26 H Problem List - Problems (1) Chest pain Assessment/Plan: 1st TNi 0.02-->0.28 F/u TNI; CK/CKMB. EKG: sinus bradycardia; otherwise normal (early ST upslope V1-2 reportedly chronic; f/u old reports). Stress ECHO 2016: no ischemia; fair functional capacity. Code(s): R07.9 - CHEST PAIN, UNSPECIFIED (2) Anxiety Code(s): F41.9 - ANXIETY DISORDER, UNSPECIFIED (3) Chronic diastolic (congestive) heart failure Code(s): I50.32 - CHRONIC DIASTOLIC (CONGESTIVE) HEART FAILURE (4) Cyclic vomiting syndrome Code(s): G43.A0 - CYCLICAL VOMITING, NOT INTRACTABLE (5) Diabetic gastroparesis associated with type 2 diabetes mellitus Code(s): E11.43 - TYPE 2 DIABETES W DIABETIC AUTONOMIC (POLY)NEUROPATHY; K31.84 - GASTROPARESIS (6) Cannabis abuse Assessment/Plan: pt says she does not want to give this up. Code(s): F12.10 - CANNABIS ABUSE, UNCOMPLICATED (7) Diabetes mellitus Assessment/Plan: since age 8. Pt says she no longer needs insulin; on ?Metformin. HGBA1c 8.1 (09/2017). Suggest f/u with procedures nurse. Code(s): E11.9 - TYPE 2 DIABETES MELLITUS WITHOUT COMPLICATIONS Qualifiers: Diabetes mellitus type: type 2 Diabetes mellitus complication status: with kidney complications Diabetes mellitus complication detail: with chronic kidney disease Chronic kidney disease stage: stage 3 (moderate) (8) Hyperlipidemia Code(s): E78.5 - HYPERLIPIDEMIA, UNSPECIFIED Qualifiers: Hyperlipidemia type: unspecified Qualified Code(s): E78.5 - Hyperlipidemia , unspecified (9) Hypertension Code(s): I10 - ESSENTIAL (PRIMARY) HYPERTENSION Qualifiers: Hypertension type: essential hypertension Qualified Code(s): I10 - Essential (primary) hypertension (10) Substance abuse Assessment/Plan: Ecstasy (reportedly last used 09/2017); chronic marijuana. Code(s): F19.10 - OTHER PSYCHOACTIVE SUBSTANCE ABUSE, UNCOMPLICATED (11) Smokes cigarettes Assessment/Plan: consider nicotine patch (?or Wellbutrin). Code(s): F17.210 - NICOTINE DEPENDENCE, CIGARETTES, UNCOMPLICATED (12) Anemia Code(s): D64.9 - ANEMIA, UNSPECIFIED
[2017-12-18 09:49] VITALS: TEMP 98
[2017-12-18] MEDS: PANTOPRAZOLE 40 MG TABLET (FP) PO SCH (10:32)
[2017-12-18] MEDS: RANOLAZINE E.R. 500 MG TABLET (FP) PO SCH (10:32)
[2017-12-18] MEDS: ASPIRIN COATED 81 MG TABLET.EC PO SCH (10:32)
[2017-12-18] MEDS: ESCITALOPRAM OXALATE 20 MG TABLET (FP) PO SCH (10:32)
[2017-12-18] MEDS: ISOSORBIDE MONONITRATE 30 MG TAB.SR.24H (FP) PO SCH (10:32)
[2017-12-18] MEDS: LABETALOL HCL 200 MG TABLET (FP) PO SCH (10:34)
--- NOTE | 2017-12-18 11:37 | EKG ---
Test Reason : Blood Pressure : / mmHG Vent. Rate : 051 BPM Atrial Rate : 051 BPM P-R Int : 172 ms QRS Dur : 088 ms QT Int : 444 ms P-R-T Axes : 030 024 021 degrees QTc Int : 409 ms SINUS BRADYCARDIA OTHERWISE NORMAL ECG WHEN COMPARED WITH ECG OF 17-DEC-2017 05:27, NO SIGNIFICANT CHANGE WAS FOUND Confirmed by ABENA MORTON MD ([id number]) on 12/18/2017 11:37:33 AM Also confirmed by ABBI RUBIO MD ([id number]) on 12/18/2017 11:38:34 AM Referred By: Confirmed By:ABBI RUBIO MD
--- NOTE | 2017-12-18 12:02 | PN ---
Progress Note, Physician Chief Complaint: Ms Berry says she is feeling much better, chest pain resolved. No sob or n/v. Says she could not sleep last night secondary to roommate. - Current Medication List Current Medications: Active Medications Acetaminophen (Ofirmev Injection -) 1,000 mg IVPB Q8H PRN PRN Reason: PAIN Last Admin: 12/17/17 15:24 Dose: 1,000 mg Aspirin (Ecotrin -) 81 mg PO DAILY [facility] Last Admin: 12/18/17 10:32 Dose: 81 mg Atorvastatin Calcium (Lipitor -) 80 mg PO HS [facility] Last Admin: 12/17/17 22:13 Dose: 80 mg Escitalopram Oxalate (Lexapro -) 20 mg PO DAILY [facility] Last Admin: 12/18/17 10:32 Dose: 20 mg Isosorbide Mononitrate (Imdur -) 30 mg PO DAILY [facility] Last Admin: 12/18/17 10:32 Dose: 30 mg Labetalol HCl (Normodyne -) 200 mg PO BID [facility] Last Admin: 12/18/17 10:34 Dose: 200 mg Pantoprazole Sodium (Protonix -) 40 mg PO DAILY [facility] Last Admin: 12/18/17 10:32 Dose: 40 mg Ranolazine (Ranexa -) 500 mg PO BID [facility] Last Admin: 12/18/17 10:32 Dose: 500 mg - Objective Vital Signs: Vital Signs Temperature 36.6 C 12/18/17 09:48 Pulse Rate 78 12/18/17 09:48 Respiratory Rate 18 12/18/17 09:48 Blood Pressure 140/86 12/18/17 09:48 O2 Sat by Pulse Oximetry (%) 100 12/18/17 05:48 Constitutional: Yes: Well Nourished, No Distress, Calm Cardiovascular: Yes: Regular Rate and Rhythm. No: Gallop, Murmur, Rub Respiratory: Yes: Regular, CTA Bilaterally. No: Rales, Rhonchi, Wheezes Gastrointestinal: Yes: Normal Bowel Sounds, Soft. No: Distention, Tenderness Extremities: Yes: WNL Edema: No Labs: CBC, BMP 12/17/17 06:45 12/17/17 06:45 INR, PTT INR 1.04 (0.82-1.09) 12/16/17 20:33 Problem List - Problems (1) Chest pain Assessment/Plan: -with elevated troponin -case d/w Dr Barnett -stress ECHO ordered -if normal, possible discharge today -continue current regimen Code(s): R07.9 - CHEST PAIN, UNSPECIFIED (2) Diabetic gastroparesis associated with type 2 diabetes mellitus Assessment/Plan: -currently controlled Code(s): E11.43 - TYPE 2 DIABETES W DIABETIC AUTONOMIC (POLY)NEUROPATHY; K31.84 - GASTROPARESIS (3) Coronary artery disease Assessment/Plan: -stress test as above Code(s): I25.10 - ATHSCL HEART DISEASE OF [place] CORONARY ARTERY W/O ANG PCTRS Qualifiers: Coronary Disease-Associated Artery/Lesion type: [place] artery [place] vs. transplanted heart: [place] heart Associated angina: with unspecified angina Qualified Code(s): I25.119 - Atherosclerotic heart disease of [place] coronary artery with unspecified angina pectoris (4) Diabetes mellitus Assessment/Plan: -currently npo -restart metformin when placed on diet -diabetic diet Code(s): E11.9 - TYPE 2 DIABETES MELLITUS WITHOUT COMPLICATIONS Qualifiers: Diabetes mellitus type: type 2 Diabetes mellitus complication status: with kidney complications Diabetes mellitus complication detail: with chronic kidney disease Chronic kidney disease stage: stage 3 (moderate) (5) Hyperlipidemia Assessment/Plan: -continue statin Code(s): E78.5 - HYPERLIPIDEMIA, UNSPECIFIED Qualifiers: Hyperlipidemia type: unspecified Qualified Code(s): E78.5 - Hyperlipidemia , unspecified (6) Hypertension Assessment/Plan: -continue labetalol and imdur Code(s): I10 - ESSENTIAL (PRIMARY) HYPERTENSION Qualifiers: Hypertension type: essential hypertension Qualified Code(s): I10 - Essential (primary) hypertension
[2017-12-18] MEDS ORDERED: NICOTINE 21 MG/24 HOURS TOPICAL PATCH TD SCH (12:15)
[2017-12-18] MEDS ORDERED: NICOTINE 14 MG/24 HOURS TOPICAL PATCH TD SCH (12:15)
[2017-12-18] MEDS ORDERED: METOCLOPRAMIDE HCL 10 MG TABLET (FP) PO SCH (16:30)
[2017-12-18] MEDS ORDERED: metFORMIN HCL 500 MG TABLET (FP) PO SCH (16:30)
--- NOTE | 2017-12-18 16:31 | PN ---
Progress Note, Physician History of Present Illness: Patient is a 37 year old black female with a significant past medical history of CAD (? hx multiple MIs), s/p coronary stents, diastolic CHF, HTN, Hyperlipidemia, bronchitis, chronic abdominal pain, Renal Insuff, Anxiety/Panic , Diabetes Mellitus with gastropareisis, LMP 2016, who presents to the ED with complaints of diffuse chest pain that began earlier this evening at 5pm while at rest at home. Patient reports chest pain began 3 hours prior to ED arrival that she states is a 10/10 in intensity. She reports novomiting earlier today, but that she vomits almost daily. Patient reports taking 3 baby aspirin for chest pain with minimal relief, stating it was what i was instructed to do the last time this occurred. Patient states chest pain feels similar to her earlier heart attacks prompting her to come into the ED for further evaluation. Pt says "gastroparesis" has caused her to lose over 50 lbs in the past year through lack of appetite. Allergies: Cephalexin monohydrate. Social history: No alcohol.+ cigarette smoking. daily Marijuana use. Former Ecstasy use (Last 10/07/17) Surgical history: , Stent x4 (First Sep 2009, Last 2015). PMD: Dr. Valencia Millinery Blocker: Dr. Ng [facility] Physician: Dr. Herbert - Current Medication List Current Medications: Active Medications Acetaminophen (Ofirmev Injection -) 1,000 mg IVPB Q8H PRN PRN Reason: PAIN Last Admin: 12/17/17 15:24 Dose: 1,000 mg Aspirin (Ecotrin -) 81 mg PO DAILY [facility] Last Admin: 12/18/17 10:32 Dose: 81 mg Atorvastatin Calcium (Lipitor -) 80 mg PO HS [facility] Last Admin: 12/17/17 22:13 Dose: 80 mg Escitalopram Oxalate (Lexapro -) 20 mg PO DAILY [facility] Last Admin: 12/18/17 10:32 Dose: 20 mg Isosorbide Mononitrate (Imdur -) 30 mg PO DAILY [facility] Last Admin: 12/18/17 10:32 Dose: 30 mg Labetalol HCl (Normodyne -) 200 mg PO BID [facility] Last Admin: 12/18/17 10:34 Dose: 200 mg Nicotine (Nicoderm Patch -) 14 mg TD DAILY [facility] Pantoprazole Sodium (Protonix -) 40 mg PO DAILY [facility] Last Admin: 12/18/17 10:32 Dose: 40 mg Ranolazine (Ranexa -) 500 mg PO BID [facility] Last Admin: 12/18/17 10:32 Dose: 500 mg - Objective Vital Signs: Vital Signs Temperature 98 F 12/18/17 09:48 Pulse Rate 78 12/18/17 09:48 Respiratory Rate 18 12/18/17 09:48 Blood Pressure 140/86 12/18/17 09:48 O2 Sat by Pulse Oximetry (%) 100 12/18/17 16:18 Eyes: Yes: WNL, Conjunctiva Clear, EOM Intact HENT: Yes: WNL, Atraumatic, Normocephalic Neck: Yes: WNL, Supple, Trachea Midline Cardiovascular: Yes: WNL, Regular Rate and Rhythm Respiratory: Yes: WNL, Regular, CTA Bilaterally Gastrointestinal: Yes: WNL, Normal Bowel Sounds Genitourinary: Yes: WNL Musculoskeletal: Yes: WNL Extremities: Yes: WNL Edema: No Integumentary: Yes: WNL Neurological: Yes: WNL, Alert, Oriented ...Motor Strength: WNL Psychiatric: Yes: WNL Labs: CBC, BMP 12/17/17 06:45 12/17/17 06:45 INR, PTT INR 1.04 (0.82-1.09) 12/16/17 20:33 Assessment/Plan - Problems (1) Chest pain Assessment/Plan: 1st TNi 0.02-->0.28 F/u TNI; CK/CKMB. EKG: sinus bradycardia; otherwise normal (early ST upslope V1-2 reportedly chronic; f/u old reports). Stress ECHO 2016: no ischemia; fair functional capacity. Code(s): R07.9 - CHEST PAIN, UNSPECIFIED (2) Anxiety Code(s): F41.9 - ANXIETY DISORDER, UNSPECIFIED (3) Chronic diastolic (congestive) heart failure Code(s): I50.32 - CHRONIC DIASTOLIC (CONGESTIVE) HEART FAILURE (4) Cyclic vomiting syndrome Code(s): G43.A0 - CYCLICAL VOMITING, NOT INTRACTABLE (5) Diabetic gastroparesis associated with type 2 diabetes mellitus Code(s): E11.43 - TYPE 2 DIABETES W DIABETIC AUTONOMIC (POLY)NEUROPATHY; K31.84 - GASTROPARESIS (6) Cannabis abuse Assessment/Plan: pt says she does not want to give this up. Code(s): F12.10 - CANNABIS ABUSE, UNCOMPLICATED (7) Diabetes mellitus Assessment/Plan: since age 8. Pt says she no longer needs insulin; on ?Metformin. HGBA1c 8.1 (09/2017). Suggest f/u with peanut shaker. Code(s): E11.9 - TYPE 2 DIABETES MELLITUS WITHOUT COMPLICATIONS Qualifiers: Diabetes mellitus type: type 2 Diabetes mellitus complication status: with kidney complications Diabetes mellitus complication detail: with chronic kidney disease Chronic kidney disease stage: stage 3 (moderate) (8) Hyperlipidemia Code(s): E78.5 - HYPERLIPIDEMIA, UNSPECIFIED Qualifiers: Hyperlipidemia type: unspecified Qualified Code(s): E78.5 - Hyperlipidemia , unspecified (9) Hypertension Code(s): I10 - ESSENTIAL (PRIMARY) HYPERTENSION Qualifiers: Hypertension type: essential hypertension Qualified Code(s): I10 - Essential (primary) hypertension (10) Substance abuse Assessment/Plan: Ecstasy (reportedly last used 09/2017); chronic marijuana. Code(s): F19.10 - OTHER PSYCHOACTIVE SUBSTANCE ABUSE, UNCOMPLICATED (11) Smokes cigarettes Assessment/Plan: consider nicotine patch (?or Wellbutrin). Code(s): F17.210 - NICOTINE DEPENDENCE, CIGARETTES, UNCOMPLICATED (12) Anemia Code(s): D64.9 - ANEMIA, UNSPECIFIED
[2017-12-18 16:41] VITALS: BP 138/80; PULSE 70
--- NOTE | 2017-12-18 17:28 | EKG ---
Test Reason : Blood Pressure : / mmHG Vent. Rate : 078 BPM Atrial Rate : 078 BPM P-R Int : 154 ms QRS Dur : 082 ms QT Int : 380 ms P-R-T Axes : 057 014 050 degrees QTc Int : 433 ms NORMAL SINUS RHYTHM POSSIBLE LEFT ATRIAL ENLARGEMENT NONSPECIFIC ST AND T WAVE ABNORMALITY ABNORMAL ECG WHEN COMPARED WITH ECG OF 12-OCT-2017 09:50, Confirmed by ABBI RUBIO MD ([id number]) on 12/18/2017 5:28:28 PM Referred By: Confirmed By:ABBI RUBIO MD
[2017-12-18] MEDS ORDERED: POLYETHYLENE GLYCOL 3350 119 GM BTL PO SCH (22:00)
== END 2017-12-18 19:32 | disposition home or self-care (01) ==
LOC: JER 19:29 → JERBED 23:03 → J4W 12-17 21:17
PROVIDERS: ADMIT Internal Medicine; ATTEND Internal Medicine
PROC: 3E033NZ Introduction of Analgesics, Hypnotics, Sedatives into Peripheral Vein, Percutaneous Approach (ICD-10-PCS; principal; 2017-12-16)
PROC: 3E033GC Introduction of Other Therapeutic Substance into Peripheral Vein, Percutaneous Approach (ICD-10-PCS; 2017-12-16)
DX: R07.9 Chest pain, unspecified (principal); I12.9 Hypertensive chronic kidney disease with stage 1 through stage 4 chronic kidney disease, or unspecified chronic kidney disease; I25.110 Atherosclerotic heart disease of native coronary artery with unstable angina pectoris; E11.22 Type 2 diabetes mellitus with diabetic chronic kidney disease; E11.43 Type 2 diabetes mellitus with diabetic autonomic (poly)neuropathy; N18.3 Chronic kidney disease, stage 3 (moderate); I50.32 Chronic diastolic (congestive) heart failure; I25.2 Old myocardial infarction; E78.5 Hyperlipidemia, unspecified; E83.42 Hypomagnesemia; K31.84 Gastroparesis; D64.9 Anemia, unspecified; G43.A0 Cyclical vomiting, in migraine, not intractable; N28.9 Disorder of kidney and ureter, unspecified; F41.9 Anxiety disorder, unspecified; Z95.5 Presence of coronary angioplasty implant and graft; Z88.1 Allergy status to other antibiotic agents; Z79.82 Long term (current) use of aspirin; Z79.84 Long term (current) use of oral hypoglycemic drugs; Z85.41 Personal history of malignant neoplasm of cervix uteri; Z87.891 Personal history of nicotine dependence; F12.10 Cannabis abuse, uncomplicated
CPT/HCPCS: 36415; 71045-TC-FY; 80048; 80053; 80307; 81003; 81015; 82550; 82553; 82962; 83690; 83735; 83880; 84484; 84702; 84703; 85025; 85610; 85730; 87086; 93005; 93010; 93351; 99285-25; G0378; J0131

== ENCOUNTER 2018-01-03 12:11 | Observation (INO) | payer BC ==
--- NOTE | 2018-01-03 12:59 | PDOC ---
History of Present Illness <Agnieszka Mccain - Last Filed: 01/03/18 16:38> - History of Present Illness Initial Comments: 01/03/18 17:02 The patient is a 37 year old female with a history of HTN, HLD, DM, CAD, [place] who presents for evaluation of syncope and lightheadedness. The patient reports that she experienced 3 syncopal episodes yesterday evening. The patient reports that she lost consciousness for about 1 minute each time with continued sensation of lightheadedness and dizziness. The patient reports injury with pain to her left wrist and left knee due to falling. She denies chest pain, palpitations or SOB at the time of the syncopal episodes. The patient otherwise denies fevers, chills, chest pain, SOB, palpitations, nausea, vomiting , abdominal pain, or changes with urination or bowel movements. <Josemanuel Pierre - Last Filed: 01/03/18 17:28> - General Chief Complaint: Pain, Acute Stated Complaint: DIZZINESS, ABD PAIN, Left leg pain Time Seen by Provider: 01/03/18 12:58 Past History <Agnieszka Mccain - Last Filed: 01/03/18 16:38> - Past Medical History Anemia: No Asthma: No Cancer: (cervical ca) Cardiac Disorders: Yes (TN X 6) CVA: No COPD: No CHF: Yes DVT: No Dementia: No Diabetes: Yes GI Disorders: Yes (GASTROPARESIS) Disorders: No HTN: Yes Hypercholesterolemia: Yes Liver Disease: No Psychiatric Problems: Yes (anxiety) Seizures: No Thyroid Disease: No - Surgical History Abdominal Surgery: No Appendectomy: No Cardiac Surgery: Yes (4 STENTS) Cholecystectomy: No Lung Surgery: No Neurologic Surgery: No Orthopedic Surgery: Yes (ROTATOR CUFF REPAIR) - Reproductive History (#): 5 Para: 0 Cervical CA: Yes Dysfunctional Uterine Bleeding: Yes Ectopic : Yes Endometrial CA: Yes Therapeutic (s) & number: Yes (1) Spontaneous : 4 - Immunization History Immunization Up to Date: Yes - Suicide/Smoking/Psychosocial Hx Smoking Status: Yes (QUIT 3 MONTHS AGO) Smoking History: Never smoked Have you smoked in the past 12 months: No Number of Cigarettes Smoked Daily: 4 If you are a former smoker, when did you quit?: 2015 Information on smoking cessation initiated: No 'Breaking Loose' booklet given: 05/30/17 Hx Alcohol Use: No Drug/Substance Use Hx: No Substance Use Type: None Hx Substance Use Treatment: No <Josemanuel Pierre - Last Filed: 01/03/18 17:28> - Past Medical History Allergies/Adverse Reactions: Allergies Allergy/AdvReac Type Severity Reaction Status Date / Time cephalexin monohydrate Allergy Severe Hives Verified 01/03/18 12:23 [From [facility]] Home Medications: Ambulatory Orders Aspirin [Aspirin EC] 81 mg PO DAILY 11/13/15 Metformin HCl 500 mg PO BID 08/25/16 Atorvastatin Ca [Lipitor] 80 mg PO HS #30 tablet 10/09/16 Labetalol HCl [Normodyne -] 200 mg PO BID #60 tablet 10/09/16 Metoclopramide HCl [Reglan] 10 mg PO TID #270 tablet 02/24/17 Pantoprazole Sodium 40 mg PO DAILY #90 tablet. 02/24/17 Polyethylene Glycol 3350 [Miralax 119 gm Btl -] 17 gm PO BID #1 bottle 10/16/17 Isosorbide Mononitrate [Imdur -] 30 mg PO DAILY #30 tab.sr.24h 12/18/17 Nicotine Patch [Nicoderm Patch -] 14 mg TD DAILY #30 patch 12/18/17 Ranolazine [Ranexa -] 500 mg PO BID #60 tab 12/18/17 Quetiapine Fumarate [Seroquel -] 25 mg PO HS 01/03/18 Ticagrelor [Brilinta] 60 mg PO DAILY 01/03/18 Review of Systems - Review of Systems Comments:: 01/03/18 17:23 Constitutional: No fevers, chills, fatigue, malaise HEENT: No Rhinorrhea, nasal congestion, visual changes Cardiovascular: Syncope. No chest pain, palpitations, lightheadedness Respiratory: No Cough, SOB, Hemoptysis, Gastrointestinal: No Abdominal pain, Nausea, Vomiting, Constipation, Diarrhea, Melena Genitourinary: No Dysuria, Frequency, Urgency, Hesitancy, Hematuria, Flank pain Musculoskeletal: No Myalgia, arthralgia Skin: No rashes, itching, bruising, pallor Neurologic: No Headache, Dizziness, Numbness, Weakness, or Tingling Psychiatric: No Hallucinations. No SI or HI <Josemanuel Pierre - Last Filed: 01/03/18 17:28> *Physical Exam - Vital Signs Last Vital Signs Temp Pulse Resp BP Pulse Ox 97.6 F 62 18 114/74 100 01/03/18 16:00 01/03/18 16:00 01/03/18 16:00 01/03/18 16:00 01/03/18 16:00 <Agnieszka Mccain - Last Filed: 01/03/18 16:38> - Vital Signs Last Vital Signs Temp Pulse Resp BP Pulse Ox 97.6 F 83 16 108/67 100 01/03/18 12:21 01/03/18 12:21 01/03/18 12:21 01/03/18 12:21 01/03/18 12:21 - Physical Exam Comments: 01/03/18 17:23 General Appearance: Nourished. No Apparent Distress HEENT: EOMI, SESAR. No Pharyngeal Erythema, Tonsillar Exudate, Tonsillar Erythema Neck: No Cervical Lymphadenopathy Respiratory/Chest: Lungs Clear, Normal Breath Sounds. No Crackles, Rales, Rhonchi, Wheezing Cardiovascular: Regular Rhythm, Regular Rate. No Murmur, Gallops, Rubs Gastrointestinal/Abdominal: Normal Bowel Sounds, Soft. No Guarding, Rebound, Tenderness Musculoskeletal: Full range of motion of the left wrist and left knee with abrasions noted and mild tenderness to palpation of the each joint. No CVA Tenderness Extremity: Normal Capillary Refill Integumentary: Normal Color, Dry, Warm Neurologic: client success specialist II-XII NML intact, Fully Oriented, Alert, Normal Mood/Affect, Normal Response, Motor Strength 5/5. Normal Finger to Nose and Heel to Ramírez <Josemanuel Pierre - Last Filed: 01/03/18 17:28> ED Treatment Course - LABORATORY CBC & Chemistry Diagram: 01/03/18 15:13 01/03/18 13:31 - ADDITIONAL ORDERS Additional order review: Laboratory Results 01/03/18 01/03/18 01/03/18 13:31 13:24 13:24 Sodium 133 L Potassium 4.1 Chloride 98 Carbon Dioxide 24 Anion Gap 11 BUN 35 H Creatinine 1.3 H Creat Clearance w eGFR 45.60 Random Glucose 183 H Calcium 9.3 Total Bilirubin 0.3 D AST 52 H ALT 56 Alkaline Phosphatase 51 Creatine Kinase 1235 H Creatine Kinase Index 0.6 CK-MB (CK-2) 7.955 H Troponin I < 0.02 Total Protein 8.4 H Albumin 4.2 Urine Color Ltyellow Cancelled Urine Appearance Slcloudy Cancelled Urine pH 6.0 Cancelled Ur Specific [place] 1.017 Cancelled Urine Protein Negative Cancelled Urine Glucose (UA) 3+ H Cancelled Urine Ketones Negative Cancelled Urine Blood Negative Cancelled Urine Nitrite Negative Cancelled Urine Bilirubin Negative Cancelled Urine Urobilinogen Negative Cancelled Ur Leukocyte Esterase Trace Cancelled Urine WBC (Auto) 3 Urine RBC (Auto) 1 Ur Epithelial Cells Few Hyaline Casts 1 Urine HCG, Qual Negative 01/03/18 01/03/18 15:13 13:31 RBC 3.28 L Cancelled MCV 72.8 L Cancelled MCHC 34.9 Cancelled RDW 21.9 H Cancelled MPV 6.8 L Cancelled Neutrophils % 60.6 D Cancelled Lymphocytes % 25.9 D Cancelled Monocytes % 12.3 H Cancelled Eosinophils % 0.3 Cancelled Basophils % 0.9 Cancelled - Medications Given in the ED: ED Medications Discontinued Medications Generic Name Dose Route Start Last Admin Trade Name Freq PRN Reason Stop Dose Admin Acetaminophen 1,000 mg 01/03/18 14:42 01/03/18 15:32 Tylenol - PO 01/03/18 14:43 1,000 mg ONCE ONE Administration Sodium Chloride 1,000 mls @ 1,000 mls/hr 01/03/18 13:23 01/03/18 15:32 Normal Saline - IV 01/03/18 14:22 1,000 mls/hr ASDIR STA Administration <Agnieszka Mccain - Last Filed: 01/03/18 16:38> - LABORATORY CBC & Chemistry Diagram: 01/03/18 15:13 01/03/18 13:31 <Josemanuel Pierre - Last Filed: 01/03/18 17:28> Medical Decision Making - Medical Decision Making 01/03/18 16:38 EKG obtained at 1634. NSR 71 bpm. Normal EKG. <Agnieszka Mccain - Last Filed: 01/03/18 16:38> - Medical Decision Making 01/03/18 15:25 The patient is a 37 year old female with a history of HTN, HLD, DM, CAD, TN who presents for evaluation of syncope and lightheadedness. Differential includes but is not limited to: ACS, Arrhythmia, Vaso-Vagal, Dehydration, Infectious, Metabolic derangement. Given the patient's history, we will obtain a cbc, cmp, troponin, ekg, chest plain film, knee plain film, left wrist plain film to evaluate further for possible etiologies. We will treat with iv fluids here in the meantime and continue to monitor and reassess. 01/03/18 17:26 CBC is unchanged from prior. CMP demonstrates a creatinine of 1.3 consistent with an LYNDSAY. Plain films are unremarkable as preliminarily read by ER physician. We believe the patient requires observation admission for further monitoring and given her multiple syncopal episodes. We discussed the case with the admitting team who accepted the patient for admission. <Josemanuel Pierre - Last Filed: 01/03/18 17:28> *DC/Admit/Observation/Transfer - Attestations Scribe Attestion: 01/03/18 16:55 Documentation prepared by Agnieszka Mccain, acting as clinical medical assistant for Crystal Bartlett MD. <Agnieszka Mccain - Last Filed: 01/03/18 16:38> - Discharge Dispostion Admit: Yes <Josemanuel Pierre - Last Filed: 01/03/18 17:28> Diagnosis at time of Disposition: Syncope Qualifiers: Syncope type: unspecified Qualified Code(s): R55 - Syncope and collapse - Discharge Dispostion Condition at time of disposition: Stable - Referrals Referrals: Ashleigh Valencia MD [Primary Care Provider] -
[2018-01-03] MEDS ORDERED: SODIUM CHLORIDE 1,000 ML IV STA (13:23)
[2018-01-03 14:26] LABS: ALBUMIN 4.2 g/dl (3.4-5.0); ANION GAP 11 (8-16); BLOOD UREA NITROGEN 35 mg/dL (7-18); CALCIUM 9.3 mg/dL (8.5-10.1); CHLORIDE 98 mmol/L (98-107); CO2 24 mmol/L (21-32); CREATININE 1.3 mg/dL (0.55-1.02); GLUCOSE,RANDOM 183 mg/dL (74-106); POTASSIUM 4.1 mmol/L (3.5-5.1); SGOT/AST 52 U/L (15-37); SGPT/ALT 56 U/L (12-78); SODIUM 133 mmol/L (136-145)
[2018-01-03 14:40] LABS: ALK PHOS 51 U/L (45-117); BILIRUBIN,TOTAL 0.3 mg/dL (0.2-1.0); TOT PROT 8.4 g/dl (6.4-8.2)
[2018-01-03] MEDS ORDERED: ACETAMINOPHEN 500 MG TABLET (FP) PO ONE (14:42)
[2018-01-03 15:01] LABS: URINE APPEARANCE SLCLOUDY; URINE BILIRUBIN NEGATIVE (<2.0 mg/dL); URINE BLOOD NEGATIVE (NEGATIVE); URINE COLOR LTYELLOW; URINE GLUCOSE (UA) 3+ (NEGATIVE); URINE KETONE NEGATIVE (NEGATIVE); URINE LEUK ESTERASE TRACE (NEGATIVE); URINE NITRITE NEGATIVE (NEGATIVE); URINE PROTEIN NEGATIVE (NEGATIVE); URINE UROBILINOGEN NEGATIVE mg/dL (0.2-1.0)
[2018-01-03 15:05] LABS: HCG,QUALITATIVE URINE NEGATIVE
[2018-01-03 15:08] LABS: EPI CELLS FEW /HPF (FEW); URINE HYALINE CAST 1 /lpf
[2018-01-03] MEDS ORDERED: ACETAMINOPHEN INJECTION 100 ML IVPB ONE (15:21)
[2018-01-03 15:39] LABS: BASO % 0.9 % (0-2.0); EOS % 0.3 % (0-4.5); HEMATOCRIT 23.9 % (32.4-45.2); HEMOGLOBIN 8.3 GM/dL (10.7-15.3); LYMPH % 25.9 % (8-40); MCH 25.4 pg (25.7-33.7); MCHC 34.9 g/dl (32.0-36.0); MEAN CELL VOLUME 72.8 fl (80-96); MEAN PLT VOLUME 6.8 fl (7.5-11.1); MONO % 12.3 % (3.8-10.2); NEUT % 60.6 % (42.8-82.8); PLATELET COUNT 418 K/MM3 (134-434); RBC 3.28 M/mm3 (3.60-5.2); RDW 21.9 % (11.6-15.6); WHITE BLOOD COUNT 4.7 K/mm3 (4.0-10.0)
[2018-01-03] MEDS ORDERED: DIPHTH,PERTUSS(ACELL),TET 0.5 ML DISP.SYRIN IM ONE (16:27)
--- NOTE | 2018-01-03 17:20 | PDOC ---
Attending Attestation - Resident Resident Name: Josemanuel Pierre - ED Attending Attestation I have performed the following: I have examined & evaluated the patient, The case was reviewed & discussed with the resident, I agree w/resident's findings & plan, Exceptions are as noted - Medical Decision Making 01/03/18 17:45 37-year-old female with multiple medical problems including significant cardiac history presents to the emergency department with syncope 3. Vitals unremarkable. Exam unremarkable. Blood work and chest x-ray within normal limits. Pt admitted For cardiac monitoring given multiple syncopal episodes. <Nassef,Yomna - Last Filed: 01/03/18 17:45> - HPI HPI: 01/03/18 17:54 The patient is a 37 year old female with history of hypertension, hyperlipidemia , DM with gastroparesis, CAD s/p PR x 6 s/p multiple stents, who presents to the ED complaining of 1 day of lightheadedness with fainting episodes x3 yesterday. States she landed on her left wrist and left knee when she fell yesterday. Today she continues to feel lightheaded, prompting her to come to the ED. States she "feels drunk". No fever or chills. No headache or blurred vision. No chest pain or shortness of breath. - Physicial Exam PE: 01/03/18 17:54 GENERAL: Awake, alert, and fully oriented, in no acute distress HEAD: No signs of trauma EYES: PERRLA, EOMI, sclera anicteric, conjunctiva clear ENT: Auricles normal inspection, hearing grossly normal, nares patent, oropharynx clear without exudates. Moist mucosa NECK: Normal ROM, supple, no lymphadenopathy, JVD, or masses LUNGS: Breath sounds equal, clear to auscultation bilaterally. No wheezes, and no crackles HEART: Regular rate and rhythm, normal S1 and S2, no murmurs, rubs or gallops ABDOMEN: Soft, nontender, normoactive bowel sounds. No guarding, no rebound. No masses EXTREMITIES: Normal range of motion, no edema. No clubbing or cyanosis. No cords, erythema, or tenderness BACK: No midline spinal tenderness in cervical/thoracic/lumbar region NEUROLOGICAL: Normal speech, cranial nerves intact, negative pronator drift, 5/ 5 strength in all 4 extremities, normal sensation to light touch in all 4 extremities, normal cerebellar exam, normal gait, normal reflexes and tone SKIN: +Superficial lacerations to left wrist and left knee. Warm, Dry, normal turgor. Documentation prepared by Agnieszka Mccain, acting as medical and scientific illustrator for Crystal Bartlett MD. <Agnieszka Mccain - Last Filed: 01/03/18 17:55>
--- NOTE | 2018-01-03 20:04 | HP ---
CHIEF COMPLAINT: Syncope PCP: Dr. Chilel HISTORY OF PRESENT ILLNESS: This is a 37 y/o woman PMH HTN, HLD, CAD s/p [place] x6 stents, DM, Gastroparesis, Anxiety, Former Smoker, Marijuana use (Gastroparesis). Who presents to the ED with lightheadedness, syncopal episodes-3 x1 day. Patient reports while standing up she passed out, got up and felt lightheaded. She reports having 2 other symcopal episodes. Patient reports having SOB with one of the events. She also reports having left wrist and left knee pain secondary from the fall. Patient denies fever, chills, cough, ESCALERA, CP, AP, N/V/D, constipation, dysuria. ER course was notable for: (1) Head CT- neg ICH, mass or lesion (2) Troponin I <0.02 (3) L-wrist- neg fx (4) L-knee- neg fx Recent Travel: None PAST MEDICAL HISTORY: See HPI PAST SURGICAL HISTORY: See HPI Social History: Smoking: Former Alcohol: None Drugs: Marijuana use Family History: Non-contributory Allergies cephalexin monohydrate [From Keflex] Allergy (Severe, Verified 01/03/18 12:23) Hives HOME MEDICATIONS: Home Medications Medication Instructions Recorded Aspirin [Aspirin EC] 81 mg PO DAILY 11/13/15 Metformin HCl 500 mg PO BID 08/25/16 Atorvastatin Ca [Lipitor] 80 mg PO HS #30 tablet 10/09/16 Labetalol HCl [Normodyne -] 200 mg PO BID #60 tablet 10/09/16 Metoclopramide HCl [Reglan] 10 mg PO TID #270 tablet 02/24/17 Pantoprazole Sodium 40 mg PO DAILY #90 tablet. 02/24/17 Polyethylene Glycol 3350 [Miralax 17 gm PO BID #1 bottle 10/16/17 119 gm Btl -] Isosorbide Mononitrate [Imdur -] 30 mg PO DAILY #30 tab.sr.24h 12/18/17 Nicotine Patch [Nicoderm Patch -] 14 mg TD DAILY #30 patch 12/18/17 Ranolazine [Ranexa -] 500 mg PO BID #60 tab 12/18/17 Quetiapine Fumarate [Seroquel -] 25 mg PO HS 01/03/18 Ticagrelor [Brilinta] 60 mg PO DAILY 01/03/18 REVIEW OF SYSTEMS CONSTITUTIONAL: Absent: fever, chills, diaphoresis, generalized weakness, malaise, loss of appetite, weight change HEENT: Absent: rhinorrhea, nasal congestion, throat pain, throat swelling, difficulty swallowing, mouth swelling, ear pain, eye pain, visual changes CARDIOVASCULAR: syncope, lightheadedness Absent: chest pain, palpitations, irregular heart rate, peripheral edema RESPIRATORY: shortness of breath Absent: cough, dyspnea with exertion, orthopnea, wheezing, stridor, hemoptysis GASTROINTESTINAL: Absent: abdominal pain, abdominal distension, nausea, vomiting, diarrhea, constipation, melena, hematochezia GENITOURINARY: Absent: dysuria, frequency, urgency, hesitancy, hematuria, flank pain, genital pain MUSCULOSKELETAL: left wrist pain, left knee pain Absent: myalgia, arthralgia, joint swelling, back pain, neck pain SKIN: Absent: rash, itching, pallor HEMATOLOGIC/IMMUNOLOGIC: Absent: easy bleeding, easy bruising, lymphadenopathy, frequent infections ENDOCRINE: Absent: unexplained weight gain, unexplained weight loss, heat intolerance, cold intolerance NEUROLOGIC: Absent: headache, focal weakness or paresthesias, dizziness, unsteady gait, seizure, mental status changes, bladder or bowel incontinence PSYCHIATRIC: Absent: anxiety, depression, suicidal or homicidal ideation, hallucinations. PHYSICAL EXAMINATION Vital Signs - 24 hr 01/03/18 01/03/18 01/03/18 12:21 16:00 19:55 Temperature 97.6 F 97.6 F Pulse Rate 83 Pulse Rate [ 62 95 H Apical] Respiratory 16 18 18 Rate Blood Pressure 108/67 Blood Pressure 114/74 123/77 [Left Arm] O2 Sat by Pulse 100 100 100 Oximetry (%) GENERAL:Thin, awake, alert, and fully oriented, in no acute distress. HEAD: Normal with no signs of trauma. EYES: Pupils equal, round and reactive to light, extraocular movements intact, sclera anicteric, conjunctiva clear. No lid lag. EARS, NOSE, THROAT: Ears normal, nares patent, oropharynx clear without exudates. Moist mucous membranes. NECK: Normal range of motion, supple without lymphadenopathy, JVD, or masses. LUNGS: Breath sounds equal, clear to auscultation bilaterally. No wheezes, and no crackles. No accessory muscle use. HEART: Regular rate and rhythm, normal S1 and S2 without murmur, rub or gallop. ABDOMEN: Soft, nontender, not distended, normoactive bowel sounds, no guarding, no rebound, no masses. No hepatomegaly or splenomegaly. MUSCULOSKELETAL: +left wrist, left knee tenderness. Normal range of motion at all joints. No bony deformities. No CVA tenderness. UPPER EXTREMITIES: 2+ pulses, warm, well-perfused. No cyanosis. No clubbing. No peripheral edema. LOWER EXTREMITIES: 2+ pulses, warm, well-perfused. No calf tenderness. No peripheral edema. NEUROLOGICAL: Cranial nerves II-XII intact. Normal speech. Gait not observed. PSYCHIATRIC: Cooperative. Good eye contact. Appropriate mood and affect. SKIN: healed ulcers to LLE noted, Warm, dry, normal turgor, no rashes, normal capillary refill. Laboratory Results - last 24 hr 01/03/18 01/03/18 01/03/18 13:24 13:24 13:31 WBC Cancelled Corrected WBC (auto) Cancelled RBC Cancelled Hgb Cancelled Hct Cancelled MCV Cancelled MCH Cancelled MCHC Cancelled RDW Cancelled Plt Count Cancelled MPV Cancelled Neutrophils % Cancelled Lymphocytes % Cancelled Monocytes % Cancelled Eosinophils % Cancelled Basophils % Cancelled Nucleated RBC % Cancelled Platelet Estimate Cancelled Platelet Comment Cancelled Sodium Potassium Chloride Carbon Dioxide Anion Gap BUN Creatinine Creat Clearance w eGFR Random Glucose Calcium Total Bilirubin AST ALT Alkaline Phosphatase Creatine Kinase Creatine Kinase Index CK-MB (CK-2) Troponin I Total Protein Albumin Urine Color Cancelled Ltyellow Urine Appearance Cancelled Slcloudy Urine pH Cancelled 6.0 Ur Specific [place] Cancelled 1.017 Urine Protein Cancelled Negative Urine Glucose (UA) Cancelled 3+ H Urine Ketones Cancelled Negative Urine Blood Cancelled Negative Urine Nitrite Cancelled Negative Urine Bilirubin Cancelled Negative Urine Urobilinogen Cancelled Negative Ur Leukocyte Esterase Cancelled Trace Urine WBC (Auto) 3 Urine RBC (Auto) 1 Ur Epithelial Cells Few Hyaline Casts 1 Urine HCG, Qual Negative 01/03/18 01/03/18 13:31 15:13 WBC 4.7 Corrected WBC (auto) RBC 3.28 L Hgb 8.3 L Hct 23.9 L MCV 72.8 L MCH 25.4 L MCHC 34.9 RDW 21.9 H Plt Count 418 MPV 6.8 L Neutrophils % 60.6 D Lymphocytes % 25.9 D Monocytes % 12.3 H Eosinophils % 0.3 Basophils % 0.9 Nucleated RBC % Platelet Estimate Platelet Comment Sodium 133 L Potassium 4.1 Chloride 98 Carbon Dioxide 24 Anion Gap 11 BUN 35 H Creatinine 1.3 H Creat Clearance w eGFR 45.60 Random Glucose 183 H Calcium 9.3 Total Bilirubin 0.3 D AST 52 H ALT 56 Alkaline Phosphatase 51 Creatine Kinase 1235 H Creatine Kinase Index 0.6 CK-MB (CK-2) 7.955 H Troponin I < 0.02 Total Protein 8.4 H Albumin 4.2 Urine Color Urine Appearance Urine pH Ur Specific [place] Urine Protein Urine Glucose (UA) Urine Ketones Urine Blood Urine Nitrite Urine Bilirubin Urine Urobilinogen Ur Leukocyte Esterase Urine WBC (Auto) Urine RBC (Auto) Ur Epithelial Cells Hyaline Casts Urine HCG, Qual ASSESSMENT/PLAN: 37 y/o woman who presents to the ED for Syncopal Episodes. Placed in Tele Observation for Syncope. Plan: 1. Syncope- Likely due to arrhythmia vs Tumor vs medication, continue cardiac monitoring, serial enzymes, Head CT- neg ICH, mass or lesion, Appreciate Cardiology consult, Appreciate Neurology consult, carotid doppler in am, patient had stress echo recently- neg. Repeat CBC, BMP in am, Will hold BP meds tonight 2/2 hypotension, Fall Precautions 2. L- Knee pain, L-wrist pain- s/p fall, Xray Wrist/Knee- no fx, no subluxation , TD given in ED, wound care, Tylenol prn, Tramadol given judiciously, FU with ortho outpatient prn 3. Hypertension- stable, monitor BP, will hold 2/2 hypotension, monitor renal function 4. CAD- stable, s/p stents x3, continue Asa, [place], EKG reviewed, Chest Xray - no acute pathology 5. HLD- Continue Lipitor, monitor LFTs 6. DM w/gastroparesis- stable, BGMs, ISS, will hold Metformin secondary to LYNDSAY concern for Lactic Acidosis, continue Reglan 7. Cannibus Abuse- discussed with patient, who is not amendable, she reports its use for Gastroparesis 8. FEN- PO fluids as tolerated, Replete lytes prn, Low Na, Diabetic Diet 9. DVT ppx- SCDs, Consider ACs if LOS > 48 hrs Code Status: Full Code Dispo: Tele Observation Problem List - Problem (1) Syncope Code(s): R55 - SYNCOPE AND COLLAPSE Qualifiers: Syncope type: unspecified Qualified Code(s): R55 - Syncope and collapse (2) Left knee pain Code(s): M25.562 - PAIN IN LEFT KNEE (3) Left wrist pain Code(s): M25.532 - PAIN IN LEFT WRIST (4) Anxiety Code(s): F41.9 - ANXIETY DISORDER, UNSPECIFIED (5) Coronary artery disease Code(s): I25.10 - ATHSCL HEART DISEASE OF [place] CORONARY ARTERY W/O ANG PCTRS Qualifiers: Coronary Disease-Associated Artery/Lesion type: [place] artery [place] vs. transplanted heart: [place] heart Associated angina: with unspecified angina Qualified Code(s): I25.119 - Atherosclerotic heart disease of [place] coronary artery with unspecified angina pectoris (6) Hypertension Code(s): I10 - ESSENTIAL (PRIMARY) HYPERTENSION Qualifiers: Hypertension type: essential hypertension Qualified Code(s): I10 - Essential (primary) hypertension (7) Hyperlipidemia Code(s): E78.5 - HYPERLIPIDEMIA, UNSPECIFIED Qualifiers: Hyperlipidemia type: unspecified Qualified Code(s): E78.5 - Hyperlipidemia , unspecified (8) Diabetic gastroparesis Code(s): E11.43 - TYPE 2 DIABETES W DIABETIC AUTONOMIC (POLY)NEUROPATHY; K31.84 - GASTROPARESIS (9) Cannabis abuse Code(s): F12.10 - CANNABIS ABUSE, UNCOMPLICATED (10) DVT prophylaxis Code(s): POG5242 - Visit type - Emergency Visit Emergency Visit: Yes ED Registration Date: 01/03/18 Care time: The patient presented to the Emergency Department on the above date and was hospitalized for further evaluation of their emergent condition. - New Patient This patient is new to me today: Yes Date on this admission: 01/03/18 - Critical Care Critical Care patient: No Hospitalist Screening - Colonoscopy Questionnaire Colonoscopy Questionnaire: Colonoscopy Questionnaire - Patient: 50 - 75 years old and never had a screening colonoscopy: No History of colon or rectal polyps, or CA: No History of IBD, Crohn's disease or UC: No History of abdominal radiation therapy as a child: No - Relative: 1 with colon or rectal CA, or polyps at age 60 or younger: No Colon or rectal CA diagnosed at age 45 or younger: No Multiple relatives with colon or rectal CA: No - Outcome: Screening Result: Negative Screen
[2018-01-03] MEDS ORDERED: ACETAMINOPHEN 325 MG TABLET (FP) PO PRN (20:53)
[2018-01-03] MEDS ORDERED: traMADol HCL 50 MG TABLET PO ONE (20:53)
[2018-01-03] MEDS: BACITRACIN 15 GM TUBE TOPICAL OINTMENT TP SCH (21:25)
[2018-01-03] MEDS ORDERED: ATORVASTATIN CA 80 MG TABLET (FP) PO SCH (22:00)
[2018-01-03] MEDS: TICAGRELOR 60 MG TABLET PO SCH (22:26)
[2018-01-03] MEDS ORDERED: INSULIN (NOVOLOG) ASPART 100 UNITS/ML 10ML VIAL SQ ONE (23:37)
[2018-01-03] MEDS ORDERED: QUEtiapine FUMARATE 25 MG TABLET (FP) PO ONE (23:45)
[2018-01-03 23:53] VITALS: BMI 19.8
[2018-01-04] MEDS ORDERED: traMADol HCL 50 MG TABLET PO ONE (06:37)
[2018-01-04 06:41] LABS: BASO % 0.4 % (0-2.0); EOS % 0.8 % (0-4.5); HEMATOCRIT 22.7 % (32.4-45.2); HEMOGLOBIN 7.8 GM/dL (10.7-15.3); LYMPH % 27.4 % (8-40); MCH 25.3 pg (25.7-33.7); MCHC 34.4 g/dl (32.0-36.0); MEAN CELL VOLUME 73.5 fl (80-96); MEAN PLT VOLUME 6.9 fl (7.5-11.1); MONO % 15.9 % (3.8-10.2); NEUT % 55.5 % (42.8-82.8); PLATELET COUNT 409 K/MM3 (134-434); RBC 3.09 M/mm3 (3.60-5.2); WHITE BLOOD COUNT 5.2 K/mm3 (4.0-10.0)
[2018-01-04 06:43] LABS: ADD RBC MORPHOLOGY YES
[2018-01-04] MEDS: INSULIN SLIDING SCALE (NOVOLOG) 1 VIAL SQ SCH ×4 (06:56→21:34)
[2018-01-04] MEDS ORDERED: INSULIN SLIDING SCALE (NOVOLOG) 1 VIAL SQ SCH (07:00)
[2018-01-04] MEDS ORDERED: INSULIN (NOVOLOG) ASPART 100 UNITS/ML 10ML VIAL ONE (07:30)
[2018-01-04 07:41] LABS: ALBUMIN 3.4 g/dl (3.4-5.0); ANION GAP 6 (8-16); BILIRUBIN,TOTAL 0.4 mg/dL (0.2-1.0); BLOOD UREA NITROGEN 23 mg/dL (7-18); CALCIUM 8.8 mg/dL (8.5-10.1); CHLORIDE 106 mmol/L (98-107); CO2 27 mmol/L (21-32); CREATININE 0.9 mg/dL (0.55-1.02); GLUCOSE,RANDOM 141 mg/dL (74-106); POTASSIUM 4.1 mmol/L (3.5-5.1); SGOT/AST 36 U/L (15-37); SGPT/ALT 45 U/L (12-78); SODIUM 139 mmol/L (136-145); TOT PROT 6.7 g/dl (6.4-8.2)
[2018-01-04 07:42] LABS: ALK PHOS 40 U/L (45-117)
[2018-01-04 08:36] LABS: CHOLESTEROL 120 mg/dL (50-200); LDL CHOLESTEROL (ONLY SJRH) 63 mg/dL (5-100); TRIGLYCERIDES 80 mg/dL (35-160)
[2018-01-04 08:38] LABS: HDL CHOLESTEROL 47 mg/dL (40-60)
--- NOTE | 2018-01-04 08:56 | CON.CARD ---
Consult Consult Specialty:: Cardiology Referred by:: Dr. Lazaro Reason for Consultation:: Syncope - History of Present Illness Chief Complaint: " I passed out 3 times" History of Present Illness: Well known to me. 37F with IDDDM, CAD s/p IN, multiple coronary interventions, PCI LAD, cyclical chronic vomiting of unclear etiology, HTN admitted after 3 syncopal episodes yesterday-- all unwitnessed. She states she lost consciousness briefly all 3 times. No antecedent CP, SOB or palpitations. No prodrome. She does note she was markedly diaphoretic. Denies illegal drug use; denies recent illness. Of note, her BUN/creat ratio indicated a pre-renal state. Markedly elevated CPK. Head CT negative. - History Source History Provided By: Patient - Past Medical History Cardio/Vascular: Yes: CAD (Prior PCI LAD), CHF, HTN, Hyperlipdemia, IN Pulmonary: Yes: Bronchitis Gastrointestinal: Yes: Other (diabetic gastroparesis, chronic abdominal pain) Renal/: Yes: Renal Inusuff ...LMP: 12/05/17 ...: No Psych: Yes: Anxiety, Depression, Panic, Other (Cutting behaviors in past) Musculoskeletal: Yes: Other (rt shoulder pain) Endocrine: Yes: Diabetes Mellitus - Past Surgical History Past Surgical History: Yes: Colonoscopy, , Stent, Upper Endoscopy - Alcohol/Substance Use Hx Alcohol Use: No History of Substance Use: reports: Marijuana, Prescription Date of Last Use: 10/07/17 (ecstasy) - Smoking History Smoking history: Former smoker Have you smoked in the past 12 months: Yes Aproximately how many cigarettes per day: 5 If you are a former smoker, when did you quit?: 12/20/17 - Social History Usual Living Arrangement: Alone ADL: Independent History of Recent Travel: No Home Medications - Allergies Allergies/Adverse Reactions: Allergies Allergy/AdvReac Type Severity Reaction Status Date / Time cephalexin monohydrate Allergy Severe Hives Verified 01/03/18 12:23 [From Keflex] - Home Medications Home Medications: Ambulatory Orders Aspirin [Aspirin EC] 81 mg PO DAILY 11/13/15 Metformin HCl 500 mg PO BID 08/25/16 Atorvastatin Ca [Lipitor] 80 mg PO HS #30 tablet 10/09/16 Labetalol HCl [Normodyne -] 200 mg PO BID #60 tablet 10/09/16 Metoclopramide HCl [Reglan] 10 mg PO TID #270 tablet 02/24/17 Pantoprazole Sodium 40 mg PO DAILY #90 tablet. 02/24/17 Polyethylene Glycol 3350 [Miralax 119 gm Btl -] 17 gm PO BID #1 bottle 10/16/17 Isosorbide Mononitrate [Imdur -] 30 mg PO DAILY #30 tab.sr.24h 12/18/17 Nicotine Patch [Nicoderm Patch -] 14 mg TD DAILY #30 patch 12/18/17 Ranolazine [Ranexa -] 500 mg PO BID #60 tab 12/18/17 Quetiapine Fumarate [Seroquel -] 25 mg PO HS 01/03/18 Ticagrelor [Brilinta] 60 mg PO BID 01/03/18 Family Disease History - Family Disease History Family Disease History: Diabetes: Mother (htn) Review of Systems Findings/Remarks: "This is a 37 y/o woman PMH HTN, HLD, CAD s/p [place] x6 stents, DM, Gastroparesis, Anxiety, Former Smoker, Marijuana use (Gastroparesis). Who presents to the ED with lightheadedness, syncopal episodes-3 x1 day. Patient reports while standing up she passed out, got up and felt lightheaded. She reports having 2 other symcopal episodes. Patient reports having SOB with one of the events. She also reports having left wrist and left knee pain secondary from the fall. Patient denies fever, chills, cough, [place], CP, AP, N/V/D, constipation, dysuria." Dr. Lazaro's H& P above reviewed. - Review of Systems Constitutional: reports: Diaphoresis, Loss of Appetite, Unintentional Wgt. Loss , Weakness Cardiovascular: reports: No Symptoms Respiratory: reports: No Symptoms Gastrointestinal: reports: Abdominal Pain Genitourinary: denies: No Symptoms, Burning, Discharge, Dysuria, Flank Pain, Frequency, Hematuria, Incontinence, Lesions, Menses, Pain, Testicular Mass, Testicular Pain, Testicular Swelling, Urgency, Vaginal Bleeding, Other Breasts: denies: No Symptoms Reported, See HPI, Breast Implants, Discharge from Nipple, Lumps, Pain, Skin Changes, Other Musculoskeletal: reports: Joint Pain (chronic right shoulder pain) Neurological: reports: Syncope Endocrine: reports: Excessive Sweating Hematology/Lymphatic: denies: No Symptoms, Easily Bruised, Excessive Bleeding, Swollen Glands, Other Psychiatric: reports: Anxiety, Depression - Risk Factors Known Risk Factors: Yes: Diabetes Mellitus, Other (Known CAD) Vital Signs: Vital Signs Temperature 98.6 F 01/04/18 04:00 Pulse Rate 79 01/04/18 04:00 Respiratory Rate 18 01/04/18 04:00 Blood Pressure 107/59 01/04/18 04:00 O2 Sat by Pulse Oximetry (%) 100 01/03/18 22:30 JVD: No Carotid Bruit: No PMI: Non-Displaced Heart Sounds: Yes: S1, S2 (RRR, no murmurs) Edema: No Peripheral Pulses WNL: Yes Neurological: Yes: Alert, Oriented ...Motor Strength: WNL - Other Data Labs, Other Data: CBC, BMP 01/04/18 05:35 01/04/18 05:35 Troponin, BNP 01/03/18 01/03/18 01/04/18 13:31 21:00 02:40 Troponin I < 0.02 < 0.02 < 0.02 Troponin, BNP 01/03/18 01/03/18 01/04/18 13:31 21:00 02:40 Troponin I < 0.02 < 0.02 < 0.02 Laboratory Tests 01/03/18 01/04/18 01/04/18 13:31 02:40 05:35 WBC 5.2 Hgb 7.8 L Plt Count 409 Sodium Potassium BUN 35 H Creatinine 1.3 H Creatine Kinase 1235 H 766 H Creatine Kinase Index 0.6 0.5 Troponin I < 0.02 < 0.02 01/04/18 05:35 WBC Hgb Plt Count Sodium 139 Potassium 4.1 BUN 23 H Creatinine 0.9 Creatine Kinase Creatine Kinase Index Troponin I NSR, normal QTC Echo: Pending Stress Echo: Report Reviewed (12/2017 here: Normal. NL LV function, no anemia, target heart rate achieve,) Prior Cardiac Procedures: PTCA with Stent Ejection Fraction %: LVEF > or = 40 % Imaging - Results Chest X-ray: Report Reviewed X-ray: Report Reviewed Cat Scan: Report Reviewed EKG: Image Reviewed Problem List - Problems (1) Syncope Code(s): R55 - SYNCOPE AND COLLAPSE Qualifiers: Encounter type: initial encounter (2) Anemia Code(s): D64.9 - ANEMIA, UNSPECIFIED Qualifiers: Other causes of anemia: other cause, not classified (3) Dehydration Code(s): E86.0 - DEHYDRATION (4) Gastroparesis Code(s): K31.84 - GASTROPARESIS (5) Weight loss Code(s): R63.4 - ABNORMAL WEIGHT LOSS (6) Cannabis abuse Code(s): F12.10 - CANNABIS ABUSE, UNCOMPLICATED (7) Coronary artery disease Code(s): I25.10 - ATHSCL HEART DISEASE OF [place] CORONARY ARTERY W/O ANG PCTRS Qualifiers: Coronary Disease-Associated Artery/Lesion type: [place] artery [place] vs. transplanted heart: [place] heart Associated angina: with unspecified angina Qualified Code(s): I25.119 - Atherosclerotic heart disease of [place] coronary artery with unspecified angina pectoris (8) Diabetes mellitus Code(s): E11.9 - TYPE 2 DIABETES MELLITUS WITHOUT COMPLICATIONS Qualifiers: Diabetes mellitus type: type 2 Diabetes mellitus complication status: with kidney complications Diabetes mellitus complication detail: with chronic kidney disease Chronic kidney disease stage: stage 3 (moderate) Assessment/Plan IMP: CAD prior IN, h/o PCI IDDM Syncope: differential includes pre-renal state/hypovolemia, arrhythmia, seizure , hypotension secondary to meds REC: 1. Telemetry to r/o arrhythmia 2. Check orthostatics 3. Echo done this month (see stress Echo 12/18/17): nl LV fxn, no ischemia. No need to repeat 4. Carotid US 5. Anemia w/u as per PMD 6. D/C statin for now, hydrate: markedly elevated CK 7. Hold BP meds and observe trend. Thanks you.
[2018-01-04] MEDS ORDERED: PT OWN MED DRAWER 7, Y5N ONE (09:22)
[2018-01-04] MEDS: BACITRACIN 15 GM TUBE TOPICAL OINTMENT TP SCH (09:50)
[2018-01-04] MEDS: TICAGRELOR 60 MG TABLET PO SCH ×2 (09:51→21:44)
[2018-01-04] MEDS: NICOTINE 14 MG/24 HOURS TOPICAL PATCH TD SCH (09:51)
[2018-01-04] MEDS: ASPIRIN COATED 81 MG TABLET.EC PO SCH (09:51)
[2018-01-04] MEDS ORDERED: TICAGRELOR 60 MG TABLET PO SCH (10:00)
[2018-01-04 10:43] LABS: ANISOCYTOSIS 1+; PLATELET ESTIMATE NORMAL; TARGET CELLS 1+; TEAR DROP CELLS 1+
--- NOTE | 2018-01-04 11:21 | PN ---
Progress Note, Physician Chief Complaint: Pt sitting in bed in no acute distress. Denies any chest pain, dizziness, sob, weakness/ n/v/d. She denies any increased vaginal bleeding, or blood in stool. She also says she was told she couldn't take po iron due to her gastroparesis. - Current Medication List Current Medications: Active Medications Acetaminophen (Tylenol -) 650 mg PO Q6H PRN PRN Reason: FEVER Last Admin: 01/04/18 04:30 Dose: 650 mg Aspirin (Ecotrin -) 81 mg PO DAILY [facility] Last Admin: 01/04/18 09:51 Dose: 81 mg Bacitracin (Bacitracin -) 1 applic TP DAILY [facility] [place] Last Admin: 01/04/18 09:50 Dose: 1 applic Insulin Aspart (Novolog Vial Sliding Scale -) 1 vial SQ ACHS [facility] PRN Reason: Protocol Last Admin: 01/04/18 06:56 Dose: 2 units Nicotine (Nicoderm Patch -) 14 mg TD DAILY [facility] [place] Last Admin: 01/04/18 09:51 Dose: 14 mg Ticagrelor (Brilinta) 60 mg PO BID [facility] [place] Last Admin: 01/04/18 09:51 Dose: 60 mg - Objective Vital Signs: Vital Signs Temperature 98 F 01/04/18 09:58 Pulse Rate 70 01/04/18 09:58 Respiratory Rate 20 01/04/18 09:58 Blood Pressure 128/79 01/04/18 09:58 O2 Sat by Pulse Oximetry (%) 100 01/03/18 22:30 Constitutional: Yes: Well Nourished, No Distress Cardiovascular: Yes: WNL, Regular Rate and Rhythm, Murmur. No: Bruit, Gallop, Rub Respiratory: Yes: WNL, Regular, CTA Bilaterally. No: Accessory Muscle Use, SOB , Tachypnea, Wheezes Gastrointestinal: Yes: WNL, Normal Bowel Sounds, Soft. No: Distention, Tenderness Genitourinary: Yes: WNL Edema: No Neurological: Yes: WNL, Alert, Oriented Psychiatric: Yes: WNL, Alert, Oriented Labs: CBC, BMP 01/04/18 05:35 01/04/18 05:35 Problem List - Problems (1) Syncope Assessment/Plan: syncope x3 at home denies sob/chest pain/lightheadedness/dizziness possibly due to hypovolemia/anemia mild hypotension here head ct neg orthostatics neg tele cardiology following Code(s): R55 - SYNCOPE AND COLLAPSE Qualifiers: Syncope type: unspecified Qualified Code(s): R55 - Syncope and collapse (2) Anemia Assessment/Plan: microcytic, iron def anemia denies any occult bleeding at home was told she cant take po iron due to her gastroparesis h/h trend down transfuse 1 unit today heme occult iron/transferrin/reticcount ordered hematology consulted Code(s): D64.9 - ANEMIA, UNSPECIFIED Qualifiers: Other causes of anemia: other cause, not classified (3) Coronary artery disease Assessment/Plan: history of KS's s/p stentx4 last echo 01/03 wnl continue aspirin hold statin per cardiology cardiology following Code(s): I25.10 - ATHSCL HEART DISEASE OF [place] CORONARY ARTERY W/O ANG PCTRS Qualifiers: Coronary Disease-Associated Artery/Lesion type: [place] artery [place] vs. transplanted heart: [place] heart Associated angina: with unspecified angina Qualified Code(s): I25.119 - Atherosclerotic heart disease of [place] coronary artery with unspecified angina pectoris (4) Hyperlipidemia Assessment/Plan: stable lipid panel reviewed statin per cardiology Code(s): E78.5 - HYPERLIPIDEMIA, UNSPECIFIED Qualifiers: Hyperlipidemia type: unspecified Qualified Code(s): E78.5 - Hyperlipidemia , unspecified (5) Hypertension Assessment/Plan: well controlled episodes of hypotension monitor off antihypertensives for now cardiology following Code(s): I10 - ESSENTIAL (PRIMARY) HYPERTENSION Qualifiers: Hypertension type: essential hypertension Qualified Code(s): I10 - Essential (primary) hypertension (6) Chronic diastolic (congestive) heart failure Assessment/Plan: chronic, diastolic last echo 01/03 wnl Code(s): I50.32 - CHRONIC DIASTOLIC (CONGESTIVE) HEART FAILURE (7) Diabetic gastroparesis associated with type 2 diabetes mellitus Assessment/Plan: chronic Code(s): E11.43 - TYPE 2 DIABETES W DIABETIC AUTONOMIC (POLY)NEUROPATHY; K31.84 - GASTROPARESIS (8) Diabetes mellitus Assessment/Plan: chronic continue current management Code(s): E11.9 - TYPE 2 DIABETES MELLITUS WITHOUT COMPLICATIONS Qualifiers: Diabetes mellitus type: type 2 Diabetes mellitus complication status: with kidney complications Diabetes mellitus complication detail: with chronic kidney disease Chronic kidney disease stage: stage 3 (moderate) (9) CKD (chronic kidney disease) stage 3, GFR 30-59 ml/min Assessment/Plan: chronic secondary to dm2 Code(s): N18.3 - CHRONIC KIDNEY DISEASE, STAGE 3 (MODERATE)
--- NOTE | 2018-01-04 11:24 | EKG ---
Test Reason : Blood Pressure : / mmHG Vent. Rate : 071 BPM Atrial Rate : 071 BPM P-R Int : 150 ms QRS Dur : 090 ms QT Int : 400 ms P-R-T Axes : 055 028 053 degrees QTc Int : 434 ms NORMAL SINUS RHYTHM NORMAL ECG WHEN COMPARED WITH ECG OF 17-DEC-2017 11:43, NO SIGNIFICANT CHANGE WAS FOUND Confirmed by DANI BHAKTA MD ([id number]) on 01/04/2018 11:24:02 AM Referred By: Confirmed By:DANI BHAKTA MD
--- NOTE | 2018-01-04 13:50 | PN ---
Progress Note (short form) - Note Progress Note: is a 37 y/o female with a PMHx of HTN, DM, CAD with NSTEMI s/p STAR in , CABG, Hx of gatroparesis, marijuana use, is here post syncopal episodes. Hematology consulted for anemia. In 09/2017, CT A/P pelvis has been unrevealing. Patient has been evaluated by gastroenterology and underwent GI w/u Pt seen and examined. Patient feels well now, she denies any complains, she says she attributes her anemia to her poor eating. O/E: GEneral: NAD HEENT: NCAT Cor: RRR Lungs: CTA b/l Abd: Benign Extre: CCE Neuro: AAOx3 Labs reviewed Last Vital Signs Temp Pulse Resp BP Pulse Ox 98 F 70 20 128/79 100 01/04/18 09:58 01/04/18 09:58 01/04/18 10:00 01/04/18 09:58 01/04/18 10:00 CBC, BMP 01/04/18 05:35 01/04/18 05:35 Current Medications Generic Name Dose Route Start Last Admin Trade Name Freq PRN Reason Stop Dose Admin Acetaminophen 650 mg 01/03/18 20:53 01/04/18 04:30 Tylenol - PO 650 mg Q6H PRN Administration FEVER Aspirin 81 mg 01/04/18 10:00 01/04/18 09:51 Ecotrin - PO 81 mg DAILY NAKIA Administration Bacitracin 1 applic 01/03/18 21:15 01/04/18 09:50 Bacitracin - TP 1 applic DAILY NAKIA Administration Insulin Aspart 1 vial 01/04/18 07:00 01/04/18 12:46 Novolog Vial Sliding Scale - SQ Not Given ACHS NAKIA Protocol Nicotine 14 mg 01/04/18 10:00 01/04/18 09:51 Nicoderm Patch - TD 14 mg DAILY NAKIA Administration Ticagrelor 60 mg 01/03/18 22:00 01/04/18 09:51 Brilinta PO 60 mg BID NAKIA Administration Anemia: Microcytic For PRBCs for IV iron LOS. for blood work. pt states she has h/o Sickle cell trait ,check HgEP ( pre-transfusion )
--- NOTE | 2018-01-04 18:07 | CON.NEURO ---
Consult Consult Specialty:: neurology Reason for Consultation:: Syncope x 3 - History of Present Illness Chief Complaint: I passed out 3 times History of Present Illness: "I was standing in front of my building and i just fell out". No warning. Was witnessed on security camera by guard. No shaking. No incontinence. Was very dizzy afterwards but rapidly came back to normal. As she went up to her apartment, she almost passed out again, but fell against the wall and didn't lose conscisunsess. She felt very hot in her apartment, went to remove her shirt, and then fell backwards. This happened never before. 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 - Past Medical History Cardio/Vascular: Yes: CAD (Prior PCI LAD), CHF, HTN, Hyperlipdemia, IN Pulmonary: Yes: Bronchitis Gastrointestinal: Yes: Other (diabetic gastroparesis, chronic abdominal pain) Renal/: Yes: Renal Inusuff ...LMP: 12/05/17 ...: No Psych: Yes: Anxiety, Depression, Panic, Other (Cutting behaviors in past) Musculoskeletal: Yes: Other (rt shoulder pain) Endocrine: Yes: Diabetes Mellitus - Past Surgical History Past Surgical History: Yes: Colonoscopy, , Stent, Upper Endoscopy - Alcohol/Substance Use Hx Alcohol Use: No History of Substance Use: reports: Marijuana, Prescription Date of Last Use: 10/07/17 (ecstasy) - Smoking History Smoking history: Former smoker Have you smoked in the past 12 months: Yes Aproximately how many cigarettes per day: 5 If you are a former smoker, when did you quit?: 12/20/17 - Social History Usual Living Arrangement: Alone ADL: Independent History of Recent Travel: No Home Medications - Allergies Allergies/Adverse Reactions: Allergies Allergy/AdvReac Type Severity Reaction Status Date / Time cephalexin monohydrate Allergy Severe Hives Verified 01/03/18 12:23 [From [employer]] - Home Medications Home Medications: Ambulatory Orders Aspirin [Aspirin EC] 81 mg PO DAILY 11/13/15 Metformin HCl 500 mg PO BID 08/25/16 Atorvastatin Ca [Lipitor] 80 mg PO HS #30 tablet 10/09/16 Labetalol HCl [Normodyne -] 200 mg PO BID #60 tablet 10/09/16 Metoclopramide HCl [Reglan] 10 mg PO TID #270 tablet 02/24/17 Pantoprazole Sodium 40 mg PO DAILY #90 tablet.dr 02/24/17 Polyethylene Glycol 3350 [Miralax 119 gm Btl -] 17 gm PO BID #1 bottle 10/16/17 Isosorbide Mononitrate [Imdur -] 30 mg PO DAILY #30 tab.sr.24h 12/18/17 Nicotine Patch [Nicoderm Patch -] 14 mg TD DAILY #30 patch 12/18/17 Ranolazine [Ranexa -] 500 mg PO BID #60 tab 12/18/17 Quetiapine Fumarate [Seroquel -] 25 mg PO HS 01/03/18 Ticagrelor [Brilinta] 60 mg PO BID 01/03/18 Family Disease History - Family Disease History Family Disease History: Diabetes: Mother (htn) Physical Exam-Neuro Vital Signs: Vital Signs Temperature 98.4 F 01/04/18 14:38 Pulse Rate 69 01/04/18 14:35 Respiratory Rate 16 01/04/18 14:38 Blood Pressure 133/89 01/04/18 14:35 O2 Sat by Pulse Oximetry (%) 100 01/04/18 10:00 Labs: CBC, BMP 01/04/18 05:35 01/04/18 05:35 Problem List - Problems (1) CKD (chronic kidney disease) stage 3, GFR 30-59 ml/min Code(s): N18.3 - CHRONIC KIDNEY DISEASE, STAGE 3 (MODERATE) (2) Left knee pain Code(s): M25.562 - PAIN IN LEFT KNEE (3) Left wrist pain Code(s): M25.532 - PAIN IN LEFT WRIST (4) Syncope Code(s): R55 - SYNCOPE AND COLLAPSE Qualifiers: Syncope type: unspecified Qualified Code(s): R55 - Syncope and collapse (5) Syncope Code(s): R55 - SYNCOPE AND COLLAPSE Qualifiers: Encounter type: initial encounter (6) Abdominal pain Code(s): R10.9 - UNSPECIFIED ABDOMINAL PAIN Qualifiers: Abdominal location: generalized Qualified Code(s): R10.84 - Generalized abdominal pain (7) Anemia Code(s): D64.9 - ANEMIA, UNSPECIFIED Qualifiers: Other causes of anemia: other cause, not classified (8) Anxiety Code(s): F41.9 - ANXIETY DISORDER, UNSPECIFIED Assessment/Plan This sounds like cardiovascular syncope rather than seizures. I would not pursue neurologic workup at this time. Please reconsult if further questions arise.
[2018-01-05] MEDS: INSULIN SLIDING SCALE (NOVOLOG) 1 VIAL SQ SCH (06:02)
[2018-01-05 06:08] LABS: SERUM IRON SATURATION 18 % (15-55); TOTAL IRON BINDING CAPACITY 399 ug/dL (250-450); UIBC 328 ug/dL (131-425)
[2018-01-05] MEDS ORDERED: INSULIN (NOVOLOG) ASPART 100 UNITS/ML 10ML VIAL ONE (06:40)
[2018-01-05 07:29] LABS: BASO % 1.5 % (0-2.0); EOS % 0.5 % (0-4.5); HEMATOCRIT 29.4 % (32.4-45.2); LYMPH % 23.1 % (8-40); MCH 25.9 pg (25.7-33.7); MCHC 33.9 g/dl (32.0-36.0); MEAN CELL VOLUME 76.6 fl (80-96); MEAN PLT VOLUME 6.7 fl (7.5-11.1); MONO % 6.4 % (3.8-10.2); NEUT % 68.5 % (42.8-82.8); PLATELET COUNT 417 K/MM3 (134-434); RBC 3.84 M/mm3 (3.60-5.2); RDW 22.9 % (11.6-15.6); WHITE BLOOD COUNT 8.6 K/mm3 (4.0-10.0)
[2018-01-05 07:52] LABS: ANION GAP 4 (8-16); BLOOD UREA NITROGEN 18 mg/dL (7-18); CALCIUM 8.9 mg/dL (8.5-10.1); CHLORIDE 102 mmol/L (98-107); CO2 29 mmol/L (21-32); CREATININE 0.9 mg/dL (0.55-1.02); GLUCOSE,RANDOM 181 mg/dL (74-106); LDH 305 U/L (84-246); POTASSIUM 3.9 mmol/L (3.5-5.1); SODIUM 135 mmol/L (136-145)
[2018-01-05] MEDS ORDERED: PT OWN MED DRAWER 7, Y5N ONE ×2 (08:38→08:46)
--- NOTE | 2018-01-05 08:40 | PN ---
Progress Note, Physician Chief Complaint: TELE unremarkable BP now trending up- needs to resume her meds - Current Medication List Current Medications: Active Medications Acetaminophen (Tylenol -) 650 mg PO Q6H PRN PRN Reason: FEVER Last Admin: 01/04/18 04:30 Dose: 650 mg Aspirin (Ecotrin -) 81 mg PO DAILY [facility] Last Admin: 01/04/18 09:51 Dose: 81 mg Bacitracin (Bacitracin -) 1 applic TP DAILY [facility] Last Admin: 01/04/18 09:50 Dose: 1 applic Iron Sucrose 100 mg/ Sodium (Chloride) 100 mls @ 200 mls/hr IVPB ONCE ONE Stop: 01/05/18 15:29 Insulin Aspart (Novolog Vial Sliding Scale -) 1 vial SQ ACHS [facility] PRN Reason: Protocol Last Admin: 01/05/18 06:02 Dose: 2 units Nicotine (Nicoderm Patch -) 14 mg TD DAILY [facility] Last Admin: 01/04/18 09:51 Dose: 14 mg Ticagrelor (Brilinta) 60 mg PO BID [facility] Last Admin: 01/04/18 21:44 Dose: 60 mg - Objective Vital Signs: Vital Signs Temperature 98 F 01/05/18 06:00 Pulse Rate 82 01/05/18 06:00 Respiratory Rate 18 01/05/18 06:00 Blood Pressure 144/96 01/05/18 06:00 O2 Sat by Pulse Oximetry (%) 100 01/05/18 04:00 Constitutional: Yes: No Distress, Calm Cardiovascular: Yes: Regular Rate and Rhythm Respiratory: Yes: CTA Bilaterally Gastrointestinal: Yes: Soft Edema: No Neurological: Yes: Alert, Oriented ...Motor Strength: WNL Labs: CBC, BMP 01/05/18 07:10 01/05/18 07:10 Laboratory Tests 01/04/18 01/05/18 01/05/18 13:45 07:10 07:10 WBC 8.6 D Hgb 10.0 L D Plt Count 417 Sodium 135 L Potassium 3.9 Creatinine 0.9 Stool Occult Blood Negative - ....Imaging Other: Image Reviewed Problem List - Problems (1) Syncope Code(s): R55 - SYNCOPE AND COLLAPSE Qualifiers: Encounter type: initial encounter (2) Anemia Code(s): D64.9 - ANEMIA, UNSPECIFIED Qualifiers: Other causes of anemia: other cause, not classified (3) Dehydration Code(s): E86.0 - DEHYDRATION (4) Gastroparesis Code(s): K31.84 - GASTROPARESIS (5) Weight loss Code(s): R63.4 - ABNORMAL WEIGHT LOSS (6) Cannabis abuse Code(s): F12.10 - CANNABIS ABUSE, UNCOMPLICATED (7) Coronary artery disease Code(s): I25.10 - ATHSCL HEART DISEASE OF [place] CORONARY ARTERY W/O ANG PCTRS Qualifiers: Coronary Disease-Associated Artery/Lesion type: [place] artery [place] vs. transplanted heart: [place] heart Associated angina: with unspecified angina Qualified Code(s): I25.119 - Atherosclerotic heart disease of [place] coronary artery with unspecified angina pectoris (8) Diabetes mellitus Code(s): E11.9 - TYPE 2 DIABETES MELLITUS WITHOUT COMPLICATIONS Qualifiers: Diabetes mellitus type: type 2 Diabetes mellitus complication status: with kidney complications Diabetes mellitus complication detail: with chronic kidney disease Chronic kidney disease stage: stage 3 (moderate) Assessment/Plan IMP: CAD prior DC, h/o PCI IDDM Syncope: differential includes pre-renal state/hypovolemia, arrhythmia, seizure , hypotension secondary to meds REC: 1. Telemetry to r/o arrhythmia thus far negative x 24 hours. Doubt arrhythmia 2. Resume Labetalol and observe response over next 6 hours 3. Echo done this month (see stress Echo 12/18/17): nl LV fxn, no ischemia. No need to repeat 4. Carotid US pending 5. Anemia w/u as per PMD 6. D/C statin, markedly elevated CK
[2018-01-05] MEDS ORDERED: LABETALOL HCL 100 MG TABLET (FP) PO SCH (10:00)
[2018-01-05] MEDS: ASPIRIN COATED 81 MG TABLET.EC PO SCH (10:13)
[2018-01-05] MEDS: NICOTINE 14 MG/24 HOURS TOPICAL PATCH TD SCH (10:13)
[2018-01-05] MEDS: BACITRACIN 15 GM TUBE TOPICAL OINTMENT TP SCH (10:14)
[2018-01-05] MEDS: TICAGRELOR 60 MG TABLET PO SCH (10:14)
--- NOTE | 2018-01-05 10:33 | DS ---
Physical Examination Vital Signs: Vital Signs Temperature 36.6 C 01/05/18 06:00 Pulse Rate 82 01/05/18 06:00 Respiratory Rate 18 01/05/18 06:00 Blood Pressure 144/96 01/05/18 06:00 O2 Sat by Pulse Oximetry (%) 100 01/05/18 04:00 Labs: CBC, BMP 01/05/18 07:10 01/05/18 07:10 Discharge Summary Reason For Visit: SYNCOPE Current Active Problems CKD (chronic kidney disease) stage 3, GFR 30-59 ml/min (Acute) Left knee pain (Acute) Left wrist pain (Acute) Syncope (Acute) Syncope (Acute) Condition: Stable - Instructions Diet, Activity, Other Instructions: resume previous diet and activity. follow up with Dr Valencia, outpatient carotid ultrasound. Referrals: Juan Manuel Ng MD [Staff Physician] - Zee Charlton MD [Staff Physician] - Ashleigh Valencia MD [Primary Care Provider] - 1 Week Disposition: HOME - Home Medications Comprehensive Discharge Medication List: Ambulatory Orders Aspirin [Aspirin EC] 81 mg PO DAILY 11/13/15 Metformin HCl 500 mg PO BID 08/25/16 Metoclopramide HCl [Reglan] 10 mg PO TID #270 tablet 02/24/17 Pantoprazole Sodium 40 mg PO DAILY #90 tablet. 02/24/17 Polyethylene Glycol 3350 [Miralax 119 gm Btl -] 17 gm PO BID #1 bottle 10/16/17 Nicotine Patch [Nicoderm Patch -] 14 mg TD DAILY #30 patch 12/18/17 Ranolazine [Ranexa -] 500 mg PO BID #60 tab 12/18/17 Quetiapine Fumarate [Seroquel -] 25 mg PO HS 01/03/18 Ticagrelor [Brilinta] 60 mg PO BID 01/03/18 Labetalol HCl [Normodyne -] 100 mg PO BID #60 tablet 01/05/18
[2018-01-05 12:21] VITALS: BP 127/79; PULSE 82; TEMP 98.5
[2018-01-05] MEDS ORDERED: IRON SUCROSE INJECTION 100 MG in SODIUM CHLORIDE 95 ML IVPB ONE (15:00)
[2018-01-10 00:15] LABS: HGB SOLUBILITY Positive (Negative); Hgb A 66.7 % (96.4-98.8); Hgb C 0 % (0.0); Hgb F 0 % (0.0-2.0); Hgb S 29.5 % (0.0)
== END 2018-01-05 10:58 | disposition home or self-care (01) ==
LOC: JER 12:11 → JERBED 17:22 → J4S 20:07
PROVIDERS: ADMIT Internal Medicine; ATTEND Internal Medicine
PROC: 30233N1 Transfusion of Nonautologous Red Blood Cells into Peripheral Vein, Percutaneous Approach (ICD-10-PCS; principal; 2018-01-03)
PROC: 3E0337Z Introduction of Electrolytic and Water Balance Substance into Peripheral Vein, Percutaneous Approach (ICD-10-PCS; 2018-01-03)
PROC: 3E013VG Introduction of Insulin into Subcutaneous Tissue, Percutaneous Approach (ICD-10-PCS; 2018-01-03)
PROC: 3E0234Z Introduction of Serum, Toxoid and Vaccine into Muscle, Percutaneous Approach (ICD-10-PCS; 2018-01-03)
DX: R55 Syncope and collapse (principal); I12.9 Hypertensive chronic kidney disease with stage 1 through stage 4 chronic kidney disease, or unspecified chronic kidney disease; I25.10 Atherosclerotic heart disease of native coronary artery without angina pectoris; I25.2 Old myocardial infarction; I50.9 Heart failure, unspecified; E78.5 Hyperlipidemia, unspecified; E11.43 Type 2 diabetes mellitus with diabetic autonomic (poly)neuropathy; E11.22 Type 2 diabetes mellitus with diabetic chronic kidney disease; E86.0 Dehydration; N18.3 Chronic kidney disease, stage 3 (moderate); K31.84 Gastroparesis; R63.4 Abnormal weight loss; D57.3 Sickle-cell trait; D50.9 Iron deficiency anemia, unspecified; F12.10 Cannabis abuse, uncomplicated; F41.9 Anxiety disorder, unspecified; M25.562 Pain in left knee; M25.532 Pain in left wrist; R10.84 Generalized abdominal pain; Z85.41 Personal history of malignant neoplasm of cervix uteri; Z95.5 Presence of coronary angioplasty implant and graft; Z87.891 Personal history of nicotine dependence; Z88.1 Allergy status to other antibiotic agents; Z79.82 Long term (current) use of aspirin; Z79.84 Long term (current) use of oral hypoglycemic drugs; W18.39XA Other fall on same level, initial encounter; Y93.89 Activity, other specified; Y92.89 Other specified places as the place of occurrence of the external cause
CPT/HCPCS: 36415; 36430; 70450-TC; 71045-TC-FY; 73110-TC-LR-FY; 73562-TC-LT-FY; 80048; 80053; 80061; 81003; 81015; 82272; 82525; 82550; 82553; 82607; 82728; 82784; 82962; 83021; 83540; 83550; 83615; 83721; 84155; 84165; 84207; 84443; 84466; 84484; 84630; 84703; 85025; 85044; 85660; 86334; 86850; 86900; 86901; 86922; 90715; 93005; 93010; 99285-25; G0378; J7030; P9038; P9058

== ENCOUNTER 2018-08-01 14:39 | Inpatient (IN) | payer BC, OTHER ==
--- NOTE | 2018-08-01 14:45 | PDOC ---
Rapid Medical Evaluation Time Seen by Provider: 08/01/18 14:41 Medical Evaluation: Allergies Allergy/AdvReac Type Severity Reaction Status Date / Time cephalexin monohydrate Allergy Severe Hives Verified 07/31/18 22:06 [From Keflex] 08/01/18 14:41 I have performed a brief in-person evaluation of this patient. The patient presents with a chief complaint of: midsternal CP for 1 day. Took Brilinta and [employer]. Pertinent physical exam findings: RRR. S1,S2 present. 3+ holosystolic murmur I have ordered the following: EKG, Labs, urine, CXR The patient will proceed to the ED for further evaluation. Discharge Disposition - Diagnosis Chest pain - Referrals - Patient Instructions - Post Discharge Activity
[2018-08-01 14:48] VITALS: BMI 21.5
--- NOTE | 2018-08-01 15:14 | PDOC ---
History of Present Illness - General Chief Complaint: Chest Pain Stated Complaint: PCP SENT/CHEST PAIN Time Seen by Provider: 08/01/18 14:41 - History of Present Illness Initial Comments: 08/01/18 15:40 The patient is a 38 year old female with a history of HTN, HLD, DM, CHF, AL s/p stenting who presents for evaluation of chest pain. The patient reports a 3 week history of intermittent chest pressure that has been getting progressively worse and more frequent. She denies any exacerbating or relieving factors and notes that her symptoms feel similar to her prior MIs. 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 Dr. Spears who sent the patient in for further evaluation and admission. The patient otherwise denies fevers, chills, cough, SOB, nausea, vomiting, abdominal pain, or changes with urination or bowel movements. Past History - Past Medical History Allergies/Adverse Reactions: Allergies Allergy/AdvReac Type Severity Reaction Status Date / Time cephalexin monohydrate Allergy Severe Hives Verified 08/01/18 14:48 [From [facility]] Home Medications: Ambulatory Orders Aspirin [Aspirin EC] 81 mg PO DAILY 11/13/15 metFORMIN HCL [Metformin HCl] 500 mg PO BID 08/25/16 Ranolazine [Ranexa -] 500 mg PO BID #60 tab 12/18/17 Ticagrelor [Brilinta] 60 mg PO BID 01/03/18 Labetalol HCl [Normodyne -] 100 mg PO BID #60 tablet 01/05/18 Atorvastatin Calcium [Lipitor] 5 mg PO HS 05/06/18 Escitalopram Oxalate [Lexapro] 5 mg PO DAILY 05/06/18 Gabapentin 300 mg PO HS 05/06/18 Pantoprazole Sodium [Protonix] 40 mg PO DAILY 05/06/18 Quetiapine Fumarate [Seroquel -] 25 mg PO HS 05/06/18 Ticagrelor [Brilinta] 90 mg PO BID 05/06/18 Anemia: No Asthma: No Cancer: Yes (cervical ca) Cardiac Disorders: Yes (CHF) CVA: No COPD: No CHF: Yes DVT: No Dementia: No Diabetes: Yes GI Disorders: Yes (GASTROPARESIS) Disorders: No HTN: Yes Hypercholesterolemia: Yes Liver Disease: No Psychiatric Problems: Yes (anxiety) Seizures: No Thyroid Disease: No - Surgical History Abdominal Surgery: No Appendectomy: No Cardiac Surgery: Yes (4 stents) Cholecystectomy: No Lung Surgery: No Neurologic Surgery: No Orthopedic Surgery: Yes (right ROTATOR CUFF REPAIR) - Reproductive History (#): 5 Para: 0 Cervical CA: Yes Dysfunctional Uterine Bleeding: Yes Ectopic : Yes Endometrial CA: Yes Therapeutic (s) & number: Yes (1) Spontaneous : 4 - Immunization History Immunization Up to Date: Yes - Suicide/Smoking/Psychosocial Hx Smoking Status: Yes (QUIT 3 MONTHS AGO) Smoking History: Never smoked Have you smoked in the past 12 months: No Number of Cigarettes Smoked Daily: 5 If you are a former smoker, when did you quit?: 12/20/17 Information on smoking cessation initiated: No 'Breaking Loose' booklet given: 01/03/18 Hx Alcohol Use: No Drug/Substance Use Hx: No Substance Use Type: None Hx Substance Use Treatment: No Review of Systems - Review of Systems Comments:: 08/01/18 15:43 Constitutional: No fevers, chills, fatigue, malaise HEENT: No Rhinorrhea, nasal congestion, visual changes Cardiovascular: Chest pain. No syncope, palpitations, lightheadedness Respiratory: No Cough, SOB, Hemoptysis, Gastrointestinal: No Abdominal pain, Nausea, Vomiting, Constipation, Diarrhea, Melena Genitourinary: No Dysuria, Frequency, Urgency, Hesitancy, Hematuria, Flank pain Musculoskeletal: No Myalgia, arthralgia Skin: No rashes, itching, bruising, pallor Neurologic: No Headache, Dizziness, Numbness, Weakness, or Tingling Psychiatric: No Hallucinations. No SI or HI *Physical Exam - Vital Signs Last Vital Signs Temp Pulse Resp BP Pulse Ox 98.5 F 83 16 92/56 L 100 08/01/18 14:44 08/01/18 14:44 08/01/18 14:44 08/01/18 14:44 08/01/18 14:44 - Physical Exam Comments: 08/01/18 15:44 General Appearance: Nourished. No Apparent Distress HEENT: No Pharyngeal Erythema, Tonsillar Exudate, Tonsillar Erythema Neck: No Cervical Lymphadenopathy Respiratory/Chest: Lungs Clear, Normal Breath Sounds. No Crackles, Rales, Rhonchi, Wheezing Cardiovascular: Regular Rhythm, Regular Rate. No Murmur, Gallops, Rubs Gastrointestinal/Abdominal: Normal Bowel Sounds, Soft. No Guarding, Rebound, Tenderness Musculoskeletal: No CVA Tenderness Extremity: Normal Capillary Refill Integumentary: Normal Color, Dry, Warm Neurologic: Fully Oriented, Alert, Normal Mood/Affect, Normal Response, Heart Score/ECG Review - History History: Moderately suspicious - Electrocardiogram EKG: Non specific repolarization disturbance - Age Age: </= 45 - Risk Factors Risk Factors Heart Score: Yes Hx Hypercholesterolemia, Yes Hx Hypertension, Yes Hx Diabetes, Yes Smoking History, Yes Positive family hx of cardiac disease Based on the list above the patient has:: >/=3 risk factors or Hx atherosclerotic disease - Troponin Troponin: </= normal limit - Score Heart Score - Total: 4 #1 ECG reviewed & interpreted by me at: 15:44 General ECG Interpretation: Sinus Rhythm, Normal Rate, Normal Intervals, No acute ischemic changes ED Treatment Course - LABORATORY CBC & Chemistry Diagram: 08/02/18 05:22 08/02/18 05:22 Medical Decision Making - Medical Decision Making 08/01/18 15:45 The patient is a 38 year old female with a history of HTN, HLD, DM, CHF, AL s/p stenting who presents for evaluation of chest pain. Differential includes but is not limited to: ACS, Arrhythmia, Infectious, Metabolic Derangement. Given the patient's history and physical exam, we will obtain a cbc, cmp, troponin, coags, ua, chest plain film, ekg to evaluate further. We will continue to monitor and reassess while here in the ED. 08/01/18 16:48 CBC, cmp are unremarkable. Troponin is elevated to 3.3. Chest plain film is unremarkable. We discussed the case with Dr. Spears who is aware of the patient and recommends anticoagulation. We treat the patient with lovanox and the patient will require admission for further management. We discussed the case with the admitting team who accepted the patient for admission. *DC/Admit/Observation/Transfer Diagnosis at time of Disposition: NSTEMI (non-ST elevated myocardial infarction) Chest pain Qualifiers: Chest pain type: unspecified Qualified Code(s): R07.9 - Chest pain, unspecified - Discharge Dispostion Condition at time of disposition: Stable Decision to Admit order: Yes - Referrals - Patient Instructions - Post Discharge Activity
[2018-08-01 15:41] LABS: BASO % 1.4 % (0-2.0); EOS % 2.3 % (0-4.5); HEMATOCRIT 29.1 % (32.4-45.2); LYMPH % 21.8 % (8-40); MCH 29.9 pg (25.7-33.7); MCHC 34.3 g/dl (32.0-36.0); MEAN CELL VOLUME 87.1 fl (80-96); MEAN PLT VOLUME 7.3 fl (7.5-11.1); MONO % 11.8 % (3.8-10.2); NEUT % 62.7 % (42.8-82.8); PLATELET COUNT 359 K/MM3 (134-434); RBC 3.34 M/mm3 (3.60-5.2); RDW 17.8 % (11.6-15.6); WHITE BLOOD COUNT 6.9 K/mm3 (4.0-10.0)
[2018-08-01 15:43] LABS: URINE APPEARANCE CLEAR; URINE BILIRUBIN NEGATIVE (<2.0 mg/dL); URINE COLOR YELLOW; URINE GLUCOSE (UA) NEGATIVE (NEGATIVE); URINE KETONE NEGATIVE (NEGATIVE); URINE LEUK ESTERASE NEGATIVE (NEGATIVE); URINE NITRITE NEGATIVE (NEGATIVE); URINE PROTEIN NEGATIVE (NEGATIVE); URINE UROBILINOGEN NEGATIVE mg/dL (0.2-1.0)
[2018-08-01 16:00] LABS: HCG,QUALITATIVE URINE Negative
[2018-08-01 16:24] LABS: ALBUMIN 3.5 g/dl (3.4-5.0); ALK PHOS 53 U/L (45-117); ANION GAP 5 MMOL/L (8-16); BILIRUBIN,TOTAL 0.3 mg/dL (0.2-1); BLOOD UREA NITROGEN 18 mg/dL (7-18); CALCIUM 9.4 mg/dL (8.5-10.1); CHLORIDE 102 mmol/L (98-107); CO2 28 mmol/L (21-32); CREATININE 0.9 mg/dL (0.55-1.3); GLUCOSE,RANDOM 128 mg/dL (74-106); MAGNESIUM 2.1 mg/dL (1.8-2.4); POTASSIUM 4.8 mmol/L (3.5-5.1); SGOT/AST 29 U/L (15-37); SGPT/ALT 28 U/L (13-61); SODIUM 135 mmol/L (136-145); TOT PROT 7.1 g/dl (6.4-8.2)
[2018-08-01] MEDS ORDERED: ENOXAPARIN NA (PORCINE) 60 MG/0.6 ML DISP.SYRIN SQ SCH (16:30)
[2018-08-01] MEDS ORDERED: ENOXAPARIN NA (PORCINE) 60 MG/0.6 ML DISP.SYRIN SQ ONE (16:38)
[2018-08-01 17:12] LABS: INR 0.98 (0.83-1.09); PROTHROMBIN TIME (PATIENT) 11.6 SEC (9.7-13.0)
--- NOTE | 2018-08-01 17:36 | PDOC ---
Attending Attestation - Resident Resident Name: Josemanuel Pierre - ED Attending Attestation I have performed the following: I have examined & evaluated the patient, The case was reviewed & discussed with the resident, I agree w/resident's findings & plan, Exceptions are as noted - HPI HPI: 08/01/18 17:35 38 F with h/o HTN, HLD, DM, CHF, CAD/SD s/p stents presenting with chest pain. Pt reports 3 weeks of intermittent chest pressure that has worsened over time. Denies exertional or pleuritic pain. States that it is similar to her prior MIs. Denies leg swelling. Denies F/C. Denies abdominal pain. Pt was seen by Dr. Ng today and sent to ED for work up. - Physicial Exam PE: 08/01/18 17:36 "GENERAL: Awake, alert, and fully oriented, in no acute distress. HEAD: No signs of trauma EYES: PERRLA, EOMI, sclera anicteric, conjunctiva clear ENT: Auricles normal inspection, hearing grossly normal, nares patent, oropharynx clear without exudates. Moist mucosa NECK: Nontender, no stepoffs, Normal ROM, supple, no lymphadenopathy, JVD, or masses LUNGS: Breath sounds equal, clear to auscultation bilaterally. No wheezes, and no crackles HEART: Regular rate and rhythm, normal S1 and S2, no murmurs, rubs or gallops ABDOMEN: Soft, nontender, normoactive bowel sounds. No guarding, no rebound. No masses EXTREMITIES: Normal range of motion, no edema. No clubbing or cyanosis. No cords, erythema, or tenderness NEUROLOGICAL: Cranial nerves II through XII intact. 5/5 strength and sensation in all extremities, Normal speech, normal gait, normal cerebellar function SKIN: Warm, Dry, normal turgor, no rashes or lesions noted. - Critical Care Time Total Critical Care Time: 45 Critical Care Statement: The care of this patient involved high complexity decision making to prevent further life threatening deterioration of the patient 's condition and/or to evaluate & treat vital organ system(s) failure or risk of failure. - Medical Decision Making 08/01/18 17:36 38 F with chest pain, concerning for ACS given h/o multiple MIs. Pt with no EKG changes. - Labs, trop - CXR - Admit 08/01/18 17:42 Trop >3 Will tx for NSTEMI Lovenox given Pt admitted to tele
--- NOTE | 2018-08-01 17:58 | HP ---
Admitting History and Physical - Primary Care Physician PCP: Ashleigh Valencia - Admission Chief Complaint: I'm having chest pain History of Present Illness: Ms Berry is a very pleasant 38 year old female who comes in with 2 weeks of chest pain. She says it start as light chest pain but has progressed over these past 2 weeks. She says it is now a 10/10. It is a sharp/pressure like pain. It is located on the left side of her chest and does not radiate. She does not know if anything relieves or exacerbates it. She denies fevers, chills, lightheadedness, dizziness, passing out, shortness of breath, nausea, vomiting, abdominal pain, diarrhea, constipation, difficulty or pain on urination, or swelling. History Source: Patient Limitations to Obtaining History: No Limitations - Past Medical History Cardiovascular: Yes: CAD, CHF, HTN, ND, Hyperlipdemia, Other Pulmonary: Yes: Bronchitis Gastrointestinal: Yes: Gastritis, Other (Gastroparesis). No: Ascites, Cancer, Constipation, Crohn's Disease, Diverticulitis, Diverticulosis, Esophageal Varices, GERD, GI Bleed, Hemorrhoids, Hiatal Hernia, Inflamatory Bowel Disease, Irritable Bowel Disease, Pancreatitis, Peptic Ulcer Disease, Ulcerative Colitis Renal/: Yes: Renal Inusuff ...LMP: 12/05/17 Psych: Yes: Anxiety, Depression, Panic, Other Musculoskeletal: Yes: Other Endocrine: Yes: Diabetes Mellitus - Past Surgical History Past Surgical History: Yes: , Stent, Colonoscopy, Upper Endoscopy, CABG - Smoking History Smoking history: Never smoked Have you smoked in the past 12 months: No Aproximately how many cigarettes per day: 5 If you are a former smoker, when did you quit?: 12/20/17 - Alcohol/Substance Use Hx Alcohol Use: No History of Substance Use: reports: Marijuana, Prescription Date of Last Use: 10/07/17 (ecstasy) - Social History ADL: Independent History of Recent Travel: No Home Medications - Allergies Allergies/Adverse Reactions: Allergies Allergy/AdvReac Type Severity Reaction Status Date / Time cephalexin monohydrate Allergy Severe Hives Verified 08/01/18 14:48 [From [facility]] - Home Medications Home Medications: Ambulatory Orders Aspirin [Aspirin EC] 81 mg PO DAILY 11/13/15 metFORMIN HCL [Metformin HCl] 500 mg PO BID 08/25/16 Metoclopramide HCl [Reglan] 10 mg PO TID #270 tablet 02/24/17 Pantoprazole Sodium 40 mg PO DAILY #90 tablet. 02/24/17 Polyethylene Glycol 3350 [Miralax 119 gm Btl -] 17 gm PO BID #1 bottle 10/16/17 Nicotine Patch [Nicoderm Patch -] 14 mg TD DAILY #30 patch 12/18/17 Ranolazine [Ranexa -] 500 mg PO BID #60 tab 12/18/17 Quetiapine Fumarate [Seroquel -] 25 mg PO HS 01/03/18 Ticagrelor [Brilinta] 60 mg PO BID 01/03/18 Labetalol HCl [Normodyne -] 100 mg PO BID #60 tablet 01/05/18 Aspirin 81 mg PO DAILY 05/06/18 Atorvastatin Calcium [Lipitor] 5 mg PO BID 05/06/18 Escitalopram Oxalate [Lexapro] 5 mg PO ASDIR 05/06/18 Gabapentin 100 mg PO BID 05/06/18 Isosorbide Mononitrate [Imdur -] 30 mg PO BID 05/06/18 Labetalol HCl 500 mg PO BID 05/06/18 Metformin HCl [Metformin HCl ER] 500 mg PO BID 05/06/18 Pantoprazole Sodium [Protonix] 40 mg PO DAILY 05/06/18 Quetiapine Fumarate [Seroquel -] 25 mg PO HS 05/06/18 Ticagrelor [Brilinta] 90 mg PO BID 05/06/18 Family Disease History - Family Disease History Family Disease History: Diabetes: Mother (htn) Review of Systems Findings/Remarks: Full review of systems obtained, as per HPI and otherwise negative Physical Examination Vital Signs: Vital Signs Temperature 36.9 C 08/01/18 14:44 Pulse Rate 83 08/01/18 14:44 Respiratory Rate 16 08/01/18 14:44 Blood Pressure 92/56 L 08/01/18 14:44 O2 Sat by Pulse Oximetry (%) 100 08/01/18 15:20 Constitutional: Yes: Well Nourished, No Distress, Calm Eyes: Yes: Conjunctiva Clear, EOM Intact, PERRL HENT: Yes: Atraumatic, Normocephalic Cardiovascular: Yes: Regular Rate and Rhythm. No: Gallop, Murmur, Rub Respiratory: Yes: Regular, CTA Bilaterally, On Nasal O2. No: Rales, Rhonchi, Wheezes Gastrointestinal: Yes: Normal Bowel Sounds, Soft. No: Distention, Tenderness Extremities: Yes: WNL Edema: No Labs: CBC, BMP 08/01/18 15:04 08/01/18 15:04 Imaging - Results Chest X-ray: Report Reviewed, Image Reviewed EKG: Image Reviewed Problem List - Problems (1) NSTEMI (non-ST elevated myocardial infarction) Assessment/Plan: -cardiology consulted and following -admit to telemetry -trend troponins -will continue brilinta and aspirin -continue labetalol, imdur, and ranexa -lovenox 60mg bid -cardiology to adjust medications as necessary -defer to Dr Ng need for transfer Code(s): I21.4 - NON-ST ELEVATION (NSTEMI) MYOCARDIAL INFARCTION (2) Anemia Assessment/Plan: -baseline -no need for transfusion Code(s): D64.9 - ANEMIA, UNSPECIFIED (3) Anxiety Assessment/Plan: -continue lexapro Code(s): F41.9 - ANXIETY DISORDER, UNSPECIFIED (4) CAD (coronary artery disease) Assessment/Plan: -as above Code(s): I25.10 - ATHSCL HEART DISEASE OF [place] CORONARY ARTERY W/O ANG PCTRS Qualifiers: (5) Diabetes mellitus Assessment/Plan: -took metformin last night, none today -hold metformin for possible cath -will make npo for tomorrow -if does not need cath, will place on diabetic diet -manage with SSI while in hospital Code(s): E11.9 - TYPE 2 DIABETES MELLITUS WITHOUT COMPLICATIONS (6) Diabetic gastroparesis associated with type 2 diabetes mellitus Assessment/Plan: -stable -continue home regimen Code(s): E11.43 - TYPE 2 DIABETES W DIABETIC AUTONOMIC (POLY)NEUROPATHY; K31.84 - GASTROPARESIS (7) HLD (hyperlipidemia) Assessment/Plan: -check lipid profile in am -adjust as needed Code(s): E78.5 - HYPERLIPIDEMIA, UNSPECIFIED (8) HTN (hypertension) Assessment/Plan: -continue current regimen Code(s): I10 - ESSENTIAL (PRIMARY) HYPERTENSION Qualifiers:
[2018-08-01] MEDS ORDERED: METOCLOPRAMIDE HCL 10 MG TABLET (FP) PO ONE (18:11)
[2018-08-01] MEDS ORDERED: MORPHINE SULFATE 2 MG/ML VIAL ONE ×2 (18:11→22:25)
[2018-08-01] MEDS: morphine SULFATE 4 MG/ML VIAL IVPUSH PRN ×2 (18:14→22:28)
[2018-08-01] MEDS: METOCLOPRAMIDE HCL 10 MG TABLET (FP) PO SCH (18:15)
[2018-08-01] MEDS ORDERED: ACETAMINOPHEN 1000 MG/100 ML VIAL (NON FORMULARY) IVPB ONE ×2 (20:30→23:55)
[2018-08-01] MEDS ORDERED: traMADol HCL 50 MG TABLET PO ONE (20:30)
[2018-08-01] MEDS ORDERED: traMADol HCL 50 MG TABLET ONE (20:51)
[2018-08-01] MEDS ORDERED: ATORVASTATIN CA 80 MG TABLET (FP) PO SCH (22:00)
[2018-08-01] MEDS ORDERED: TICAGRELOR 90 MG TABLET PO SCH (22:00)
[2018-08-01] MEDS ORDERED: LABETALOL HCL 200 MG TABLET (FP) PO SCH (22:00)
[2018-08-01] MEDS ORDERED: LABETALOL HCL 100 MG TABLET (FP) PO SCH (22:00)
[2018-08-01] MEDS ORDERED: QUEtiapine FUMARATE 25 MG TABLET (FP) PO SCH (22:00)
[2018-08-01] MEDS: TICAGRELOR 90 MG TABLET PO SCH (22:23)
[2018-08-01] MEDS: RANOLAZINE E.R. 500 MG TABLET (FP) PO SCH (22:23)
[2018-08-01] MEDS: ISOSORBIDE MONONITRATE 30 MG TAB.SR.24H (FP) PO SCH (22:23)
[2018-08-01] MEDS: GABAPENTIN 100 MG CAPSULE (FP) PO SCH (22:23)
[2018-08-02] MEDS ORDERED: ACETAMINOPHEN INJECTION 100 ML IVPB ONE (02:12)
[2018-08-02] MEDS ORDERED: ENOXAPARIN NA (PORCINE) 60 MG/0.6 ML DISP.SYRIN SQ SCH (04:00)
[2018-08-02 05:35] LABS: BASO % 1.2 % (0-2.0); EOS % 2.9 % (0-4.5); HEMATOCRIT 30.5 % (32.4-45.2); HEMOGLOBIN 10.2 GM/dL (10.7-15.3); LYMPH % 31.3 % (8-40); MCH 28.9 pg (25.7-33.7); MCHC 33.5 g/dl (32.0-36.0); MEAN CELL VOLUME 86.2 fl (80-96); MEAN PLT VOLUME 6.6 fl (7.5-11.1); MONO % 12.2 % (3.8-10.2); NEUT % 52.4 % (42.8-82.8); PLATELET COUNT 321 K/MM3 (134-434); RBC 3.53 M/mm3 (3.60-5.2); RDW 17.2 % (11.6-15.6); WHITE BLOOD COUNT 5.7 K/mm3 (4.0-10.0)
[2018-08-02 06:05] LABS: ALBUMIN 3.2 g/dl (3.4-5.0); ALK PHOS 49 U/L (45-117); ANION GAP 4 MMOL/L (8-16); BILIRUBIN,DIRECT 0.1 mg/dL (0.0-0.2); BILIRUBIN,TOTAL 0.4 mg/dL (0.2-1); BLOOD UREA NITROGEN 16 mg/dL (7-18); CALCIUM 8.9 mg/dL (8.5-10.1); CHLORIDE 104 mmol/L (98-107); CO2 27 mmol/L (21-32); GLUCOSE,RANDOM 165 mg/dL (74-106); POTASSIUM 4.5 mmol/L (3.5-5.1); SGOT/AST 23 U/L (15-37); SGPT/ALT 23 U/L (13-61); SODIUM 136 mmol/L (136-145); TOT PROT 6.6 g/dl (6.4-8.2)
[2018-08-02 06:17] LABS: MAGNESIUM 1.9 mg/dL (1.8-2.4)
[2018-08-02 08:30] VITALS: TEMP 98
--- NOTE | 2018-08-02 08:40 | PN ---
Progress Note, Physician Chief Complaint: Chest pain for 3 weeks History of Present Illness: 38F with DM, CAD, s/p multiple prior NSTEMIs, PCI presented to office yesterday after signing out of ER Monday night AMA with 3 weeks of chest pain. Centra, substernal, radiating to left arm; worse w/ exertion and similar to her previous episodes of unstable angina. Denies N/V or diaphoresis. No palpitations or syncope. No edema or CHF sx. No fever, chills, cough. No recent air or prolonged car travel. Pain not positional in nature nor related to food. ECG showed NSST changes in I and avL I sent her back to ER for further work up and cardiac enzymes were +, c/w NSTEMI PMH: As above HTN Chronic marijuana use No tobacco, no other illegal drugs - Current Medication List Current Medications: Active Medications Aspirin (Ecotrin -) 81 mg PO DAILY [facility] Atorvastatin Calcium (Lipitor -) 80 mg PO HS [facility] Last Admin: 08/01/18 22:23 Dose: 80 mg Enoxaparin Sodium (Lovenox -) 60 mg SQ BID@0400,1600 [facility] Escitalopram Oxalate (Lexapro -) 5 mg PO DAILY [facility] Gabapentin (Neurontin -) 100 mg PO BID [facility] Last Admin: 08/01/18 22:23 Dose: 100 mg Isosorbide Mononitrate (Imdur -) 30 mg PO BID [facility] Last Admin: 08/01/18 22:23 Dose: Not Given Metoclopramide HCl (Reglan -) 10 mg PO TIDAC [facility] Last Admin: 08/01/18 18:15 Dose: Not Given Morphine Sulfate (Morphine Sulfate) 1 mg IVPUSH Q4H PRN PRN Reason: PAIN LEVEL 6-10 Last Admin: 08/01/18 22:28 Dose: 1 mg Nicotine (Nicoderm Patch -) 14 mg TD DAILY [facility] Pantoprazole Sodium (Protonix -) 40 mg PO DAILY [facility] Quetiapine Fumarate (Seroquel -) 25 mg PO HS [facility] Last Admin: 08/01/18 22:23 Dose: 25 mg Ranolazine (Ranexa -) 500 mg PO BID [facility] Last Admin: 08/01/18 22:23 Dose: 500 mg Ticagrelor (Brilinta -) 90 mg PO BID [facility] Last Admin: 08/01/18 22:23 Dose: 90 mg - Objective Vital Signs: Vital Signs Temperature 98 F 08/02/18 08:29 Pulse Rate 68 08/02/18 08:29 Respiratory Rate 18 08/02/18 08:29 Blood Pressure 117/76 08/02/18 08:29 O2 Sat by Pulse Oximetry (%) 99 08/02/18 06:34 Constitutional: Yes: No Distress, Calm Eyes: Yes: Conjunctiva Clear Cardiovascular: Yes: Regular Rate and Rhythm (no murmurs, rubs) Respiratory: Yes: CTA Bilaterally (no rales) Gastrointestinal: Yes: Soft Edema: No Neurological: Yes: Alert, Oriented Labs: CBC, BMP 08/02/18 05:22 08/02/18 05:22 INR, PTT INR 0.98 (0.83-1.09) 08/01/18 15:04 Laboratory Tests 08/01/18 08/01/18 08/02/18 15:04 22:21 05:22 WBC 5.7 Hgb 10.2 L Plt Count 321 Sodium Potassium BUN Creatinine Creatine Kinase 682 H 532 H Troponin I 3.32 H* 3.66 H* Triglycerides Cholesterol Total LDL Cholesterol HDL Cholesterol 08/02/18 08/02/18 05:22 05:22 WBC Hgb Plt Count Sodium 136 Potassium 4.5 BUN 16 Creatinine 1.0 Creatine Kinase 407 H Troponin I 4.62 H* Triglycerides 174 H Cholesterol 129 Total LDL Cholesterol 76 HDL Cholesterol 43 - ....Imaging EKG: Image Reviewed Other: Other (Echo is pending and being performed at bedside now.) Problem List - Problems (1) NSTEMI (non-ST elevated myocardial infarction) Code(s): I21.4 - NON-ST ELEVATION (NSTEMI) MYOCARDIAL INFARCTION (2) CAD (coronary artery disease) Code(s): I25.10 - ATHSCL HEART DISEASE OF [place] CORONARY ARTERY W/O ANG PCTRS Qualifiers: Coronary Disease-Associated Artery/Lesion type: [place] artery [place] vs. transplanted heart: [place] heart Associated angina: with unstable angina Qualified Code(s): I25.110 - Atherosclerotic heart disease of [place] coronary artery with unstable angina pectoris (3) Stented coronary artery Code(s): Z95.5 - PRESENCE OF CORONARY ANGIOPLASTY IMPLANT AND GRAFT (4) Diabetes Code(s): E11.9 - TYPE 2 DIABETES MELLITUS WITHOUT COMPLICATIONS Qualifiers: Diabetes mellitus type: type 2 Diabetes mellitus complication status: with circulatory complication Assessment/Plan IMP: Acute NSTEMI Known CAD s/p prior MIs, PCIs DM HTN REC: 1. Tele 2. Echo now 3. Continue ASA, Brilinta, high intensity statin. Holding beta cynthia due to low baseline BP overnight. 4. Lovenox started in ER 5. Plan for transfer to [facility] today for cath.
[2018-08-02] MEDS ORDERED: PT OWN MED DRAWER 7, Y5N ONE ×2 (09:30→10:07)
[2018-08-02] MEDS ORDERED: NITROGLYCERIN SUBLINGUAL 1/150 0.4 MG TAB SL ONE (09:30)
[2018-08-02] MEDS: METOCLOPRAMIDE HCL 10 MG TABLET (FP) PO SCH ×2 (09:34→11:54)
[2018-08-02] MEDS ORDERED: METOPROLOL TARTRATE 25 MG TABLET (FP) PO SCH (10:00)
[2018-08-02] MEDS ORDERED: NICOTINE 14 MG/24 HOURS TOPICAL PATCH TD SCH (10:00)
[2018-08-02] MEDS ORDERED: PANTOPRAZOLE 40 MG TABLET (FP) PO SCH (10:00)
[2018-08-02] MEDS ORDERED: ASPIRIN COATED 81 MG TABLET.EC PO SCH (10:00)
[2018-08-02] MEDS ORDERED: ESCITALOPRAM OXALATE 10 MG TABLET (FP) PO SCH (10:00)
[2018-08-02] MEDS ORDERED: ASPIRIN 81 MG CHEWABLE TABLETS PO SCH (10:00)
[2018-08-02] MEDS: GABAPENTIN 100 MG CAPSULE (FP) PO SCH (10:11)
[2018-08-02] MEDS: RANOLAZINE E.R. 500 MG TABLET (FP) PO SCH (10:11)
[2018-08-02] MEDS: ISOSORBIDE MONONITRATE 30 MG TAB.SR.24H (FP) PO SCH (10:11)
[2018-08-02] MEDS: TICAGRELOR 90 MG TABLET PO SCH (10:46)
--- NOTE | 2018-08-02 11:21 | DS ---
Physical Examination Vital Signs: Vital Signs Temperature 36.6 C 08/02/18 09:15 Pulse Rate 68 08/02/18 09:15 Respiratory Rate 18 08/02/18 09:15 Blood Pressure 117/76 08/02/18 09:15 O2 Sat by Pulse Oximetry (%) 99 08/02/18 09:15 Constitutional: Yes: Well Nourished, No Distress, Calm Cardiovascular: Yes: Regular Rate and Rhythm. No: Gallop, Murmur, Rub Respiratory: Yes: Regular, CTA Bilaterally. No: Rales, Rhonchi, Wheezes Gastrointestinal: Yes: Normal Bowel Sounds, Soft. No: Distention, Tenderness Extremities: Yes: WNL Edema: No Labs: CBC, BMP 08/02/18 05:22 08/02/18 05:22 Discharge Summary Reason For Visit: NON ST (ELEVATION) MYOCARDIAL INFARCTION Current Active Problems CAD (coronary artery disease) (Acute) Chest pain (Acute) Diabetes (Acute) NSTEMI (non-ST elevated myocardial infarction) (Acute) Stented coronary artery (Acute) Hospital Course: (1) NSTEMI (non-ST elevated myocardial infarction) Code(s): I21.4 - NON-ST ELEVATION (NSTEMI) MYOCARDIAL INFARCTION (2) Anemia Code(s): D64.9 - ANEMIA, UNSPECIFIED (3) Anxiety Code(s): F41.9 - ANXIETY DISORDER, UNSPECIFIED (4) CAD (coronary artery disease) Code(s): I25.10 - ATHSCL HEART DISEASE OF [place] CORONARY ARTERY W/O ANG PCTRS Qualifiers: (5) Diabetes mellitus Code(s): E11.9 - TYPE 2 DIABETES MELLITUS WITHOUT COMPLICATIONS (6) Diabetic gastroparesis associated with type 2 diabetes mellitus Code(s): E11.43 - TYPE 2 DIABETES W DIABETIC AUTONOMIC (POLY)NEUROPATHY; K31.84 - GASTROPARESIS (7) HLD (hyperlipidemia) Code(s): E78.5 - HYPERLIPIDEMIA, UNSPECIFIED (8) HTN (hypertension) Code(s): I10 - ESSENTIAL (PRIMARY) HYPERTENSION Qualifiers: Ms Berry is a pleasant 38 year old female who came in with chest pain and was found to have an NSTEMI. She was admitted to telemetry. She was seen by cardiology. Her troponin was elevated and it is continuing to trend upwards. She was placed on lovenox while here. Her beta cynthia, aspirin, and brilinta were continued. Her metformin was held for catheterization. Dr Ng saw her this morning, planning for transfer to [facility] for cardiac catheterization. Condition: Stable - Instructions Referrals: Ashleigh Valencia MD [Primary Care Provider] - Disposition: TRANSFER ACUTE CARE/OTHER HOSP - Home Medications Comprehensive Discharge Medication List: Ambulatory Orders Aspirin [Aspirin EC] 81 mg PO DAILY 11/13/15 metFORMIN HCL [Metformin HCl] 500 mg PO BID 08/25/16 Ranolazine [Ranexa -] 500 mg PO BID #60 tab 12/18/17 Ticagrelor [Brilinta] 60 mg PO BID 01/03/18 Labetalol HCl [Normodyne -] 100 mg PO BID #60 tablet 01/05/18 Atorvastatin Calcium [Lipitor] 5 mg PO HS 05/06/18 Escitalopram Oxalate [Lexapro] 5 mg PO DAILY 05/06/18 Gabapentin 300 mg PO HS 05/06/18 Pantoprazole Sodium [Protonix] 40 mg PO DAILY 05/06/18 Quetiapine Fumarate [Seroquel -] 25 mg PO HS 05/06/18 Ticagrelor [Brilinta] 90 mg PO BID 05/06/18
[2018-08-02] MEDS: morphine SULFATE 4 MG/ML VIAL IVPUSH PRN (11:49)
--- NOTE | 2018-08-02 11:49 | EKG ---
Test Reason : Blood Pressure : / mmHG Vent. Rate : 072 BPM Atrial Rate : 072 BPM P-R Int : 160 ms QRS Dur : 082 ms QT Int : 388 ms P-R-T Axes : 039 030 115 degrees QTc Int : 424 ms NORMAL SINUS RHYTHM POSSIBLE LEFT ATRIAL ENLARGEMENT ABNORMAL ECG WHEN COMPARED WITH ECG OF 31-JUL-2018 22:02, NO SIGNIFICANT CHANGE WAS FOUND Confirmed by DANI BHAKTA MD ([id number]) on 08/02/2018 11:48:51 AM Referred By: Confirmed By:DANI BHAKTA MD
[2018-08-02 11:52] VITALS: BP 111/70; PULSE 72
--- NOTE | 2018-08-02 11:54 | EKG ---
Test Reason : Blood Pressure : / mmHG Vent. Rate : 061 BPM Atrial Rate : 061 BPM P-R Int : 176 ms QRS Dur : 082 ms QT Int : 426 ms P-R-T Axes : 040 018 114 degrees QTc Int : 428 ms NORMAL SINUS RHYTHM ABNORMAL ECG WHEN COMPARED WITH ECG OF 01-AUG-2018 14:48, NO SIGNIFICANT CHANGE WAS FOUND Confirmed by DANI BHAKTA MD ([id number]) on 08/02/2018 11:54:36 AM Referred By: Confirmed By:DANI BHAKTA MD
--- NOTE | 2018-08-02 12:08 | ECHO ---
Name: BEVERLEY PARKER Exam:Adult Echocardiogram Study Date: 08/02/2018 08:32 AM Age: 38 yrs Reason For Study: NSTEMI MMode/2D Measurements & Calculations IVSd: 1.0 cm Ao root diam: 2.7 cm LVIDd: 4.9 cm LA dimension: 3.2 cm LVIDs: 2.9 cm LVPWd: 0.99 cm LVPWs: 1.3 cm EDV(Teich): 111.8 ml ESV(Teich): 31.3 ml LVOT diam: 1.9 cm Doppler Measurements & Calculations MV E max lenin: 111.6 cm/sec Ao V2 max: 104.5 cm/sec MV A max lenin: 46.9 cm/sec Ao max P.4 mmHg MV E/A: 2.4 DESTINEE(V,D): 2.3 cm2 MV dec time: 0.23 sec LV V1 max P.8 mmHg PA V2 max: 97.1 cm/sec LV V1 max: 83.9 cm/sec PA max P.8 mmHg Med Peak E' Lnein: 7.2 cm/sec Med E/e': 15.4 Lat Peak E' Lenin: 9.3 cm/sec Lat E/e': 12.0 Procedure A complete two-dimensional transthoracic echocardiogram was performed (2D, M-mode, Doppler and color flow Doppler). Left Ventricle The left ventricular size, thickness and function are normal. The left ventricular ejection fraction is normal. Ejection Fraction = 55-60%. The left ventricular wall motion is normal. Right Ventricle The right ventricle is normal in size and function. Atria Normal left and right atrial size and function. Mitral Valve There is no mitral regurgitation noted. Tricuspid Valve There is trace tricuspid regurgitation. There was insufficient TR detected to calculate RV systolic p ressure. Aortic Valve The aortic valve is trileaflet. No hemodynamically significant valvular aortic stenosis. No aortic regurgitation is present. Pulmonic Valve There is no pulmonic valvular regurgitation. Great Vessels The aortic root is normal size. Pericardium/Pleura There is no pericardial effusion. Interpretation Summary The left ventricular size, thickness and function are normal The right ventricle is normal in size and function. There is trace tricuspid regurgitation. MD Kris Winn 08/02/2018 12:08 PM
== END 2018-08-02 15:44 | disposition short-term general hospital (02) | DRG 282 ==
LOC: JER 14:39 → JERBED 16:40 → J4S 08-02 08:00
PROVIDERS: ADMIT Internal Medicine; ATTEND Internal Medicine
DX: I21.4 Non-ST elevation (NSTEMI) myocardial infarction (principal); F12.10 Cannabis abuse, uncomplicated; I11.0 Hypertensive heart disease with heart failure; I25.10 Atherosclerotic heart disease of native coronary artery without angina pectoris; I50.9 Heart failure, unspecified; E11.9 Type 2 diabetes mellitus without complications; I25.2 Old myocardial infarction; Z95.5 Presence of coronary angioplasty implant and graft; E78.5 Hyperlipidemia, unspecified; Z79.84 Long term (current) use of oral hypoglycemic drugs; Z85.41 Personal history of malignant neoplasm of cervix uteri; F41.9 Anxiety disorder, unspecified; Z87.891 Personal history of nicotine dependence
CPT/HCPCS: 36415; 71046-TC-FY; 80048; 80053; 80061; 80076; 81003; 82550; 82553; 83721; 83735; 84100; 84484; 84703; 85025; 85610; 85730; 93005; 93010; 93306-TC; 99284-25; J0131

== ENCOUNTER 2018-08-10 07:51 | Emergency (ER) | payer BC, OTHER ==
[2018-08-10] MEDS ORDERED: ASPIRIN 81 MG CHEWABLE TABLETS PO ONE (07:58)
[2018-08-10] MEDS ORDERED: ONDANSETRON 4 MG/2 ML VIAL IVPUSH ONE (07:58)
[2018-08-10] MEDS ORDERED: ONDANSETRON 4 MG/2 ML VIAL ONE (07:58)
[2018-08-10] MEDS ORDERED: ASPIRIN 81 MG CHEWABLE TABLETS ONE (07:58)
[2018-08-10] MEDS ORDERED: NITROGLYCERIN SUBLINGUAL 1/150 0.4 MG TAB SL ONE (08:00)
[2018-08-10] MEDS ORDERED: NITROGLYCERIN SUBLINGUAL 1/150 0.4 MG TAB ONE (08:02)
--- NOTE | 2018-08-10 08:02 | PDOC ---
Attending Attestation - Resident Resident Name: Magali Gar - ED Attending Attestation I have performed the following: I have examined & evaluated the patient, The case was reviewed & discussed with the resident, I agree w/resident's findings & plan, Exceptions are as noted - HPI HPI: 08/10/18 08:01 38y F hx of htn, hl, dm, chf, gastroparesis, mi sp multiple stents (last one approx 9 days go) presents with chest pain. pt notes itermittnt chest pain for the psat week since her stent, but worsened last night around 4am. The pain is pressure like/sharp, substernal associated with nausea. Pt notes cp feel slike previous ME. Pt denies any sob, n/v, abd pain, back pain, numbness/tingling/ weakness. pt has not taken any medications today - Physicial Exam PE: 08/10/18 08:52 GENERAL: The patient is awake, alert, and fully oriented, appears to be uncomfortable HEAD: Normocephalic, atraumatic. EYES: extraocular movements intact, sclera anicteric, conjunctiva clear. ENT: Normal voice, Moist mucous membranes. NECK: Normal range of motion, supple LUNGS: Breath sounds equal, clear to auscultation bilaterally. No wheezes, no rhonchi, no rales. HEART: Regular rate and rhythm, normal S1 and S2 without murmur, rub or gallop. ABDOMEN: Soft, nontender No guarding, no rebound. . No CVA tenderness EXTREMITIES: Normal range of motion, no edema. No clubbing or cyanosis. No cords, erythema, or tenderness. NEUROLOGICAL: No facial assymetry, Normal speech, PSYCH: Normal mood, normal affect. SKIN: Warm, Dry, normal turgor, - Medical Decision Making 08/10/18 09:07 concern for [place] in light of recent stent. consider pancreatitis/gastroparesis EKG shows STD in V4, V5 pt given ASA, NTG for pain with out significant releive zofran / reglan for nausea/vomiting case dw dr. Mcnair - will come see pt will start heparin gtt. 08/10/18 09:[address] mcnair was bedside evluating the pt, requests echo awaiting echo anticipate admisison vs. transfer Heart Score/ECG Review - ECG Impressions Comment:: 08/10/18 09:49 Twelve-lead EKG was performed and reviewed by me. There is normal sinus rhythm with a normal rate. The axis is normal. ST depressions noted in 4-5
[2018-08-10] MEDS ORDERED: morphine CARPU-JECT 4 MG/1 ML DISP.SYRIN IVPUSH ONE ×2 (08:07→15:08)
[2018-08-10] MEDS ORDERED: morphine SULFATE 4 MG/ML VIAL ONE ×3 (08:13→15:20)
--- NOTE | 2018-08-10 08:13 | PDOC ---
History of Present Illness - General Chief Complaint: Chest Pain Stated Complaint: CHEST PAIN Time Seen by Provider: 08/10/18 07:55 - History of Present Illness Initial Comments: Jesusita Berry is a 38yo woman with a history of CAD x5 stents, most recent stent placed last Monday, previous ME (has had 9, per pt), CHF, HTN, DM, renal insufficiency, anxiety/depression, panic attacks, and gastroporesis who presents with chest pain and nausea/vomiting that "feels like a heart attack." She reports that she was recently admitted with an ME (per records, NSTEMI with trop peaking at 4), h/o multiple ME in the past with 7 recorded at [facility]. She was transferred to [facility] at that time and had her 5th stent placed. Ms Berry reports that she has been having intermittent squeezing chest pain over the past week, but she did not seek medical evaluation. This morning around 4am, the squeezing chest pain became severe, constant, and associated with nausea and multiple episodes of vomiting. She reports that this feels similar to her previous ME's. She denies any unusual activity over the holiday yesterday, reports that she has been taking all of her medications as prescribed, and has not smoked cigarettes since last year. Past History - Past Medical History Allergies/Adverse Reactions: Allergies Allergy/AdvReac Type Severity Reaction Status Date / Time cephalexin monohydrate Allergy Severe Hives Verified 08/10/18 08:00 [From Xoopit] Home Medications: Ambulatory Orders Aspirin [Aspirin EC] 81 mg PO DAILY 11/13/15 metFORMIN HCL [Metformin HCl] 500 mg PO BID 08/25/16 Ranolazine [Ranexa -] 500 mg PO BID #60 tab 12/18/17 Labetalol HCl [Normodyne -] 100 mg PO BID #60 tablet 01/05/18 Atorvastatin Calcium [Lipitor] 5 mg PO HS 05/06/18 Escitalopram Oxalate [Lexapro] 5 mg PO DAILY 05/06/18 Gabapentin 300 mg PO HS 05/06/18 Pantoprazole Sodium [Protonix] 40 mg PO DAILY 05/06/18 Quetiapine Fumarate [Seroquel -] 25 mg PO HS 05/06/18 Ticagrelor [Brilinta] 90 mg PO BID 05/06/18 Anemia: No Asthma: No Cancer: Yes (cervical ca) Cardiac Disorders: Yes (CHF) CVA: No COPD: No CHF: Yes DVT: No Dementia: No Diabetes: Yes GI Disorders: Yes (GASTROPARESIS) Disorders: No HTN: Yes Hypercholesterolemia: Yes Liver Disease: No Psychiatric Problems: Yes (anxiety) Seizures: No Thyroid Disease: No - Surgical History Abdominal Surgery: No Appendectomy: No Cardiac Surgery: Yes (5 stents//last on 08/03/18) Cholecystectomy: No Lung Surgery: No Neurologic Surgery: No Orthopedic Surgery: Yes (right ROTATOR CUFF REPAIR) - Reproductive History (#): 5 Para: 0 Cervical CA: Yes Dysfunctional Uterine Bleeding: Yes Ectopic : Yes Endometrial CA: Yes Therapeutic (s) & number: Yes (1) Spontaneous : 4 - Immunization History Immunization Up to Date: Yes - Suicide/Smoking/Psychosocial Hx Smoking Status: Yes (QUIT 3 MONTHS AGO) Smoking History: Former smoker Have you smoked in the past 12 months: Yes Number of Cigarettes Smoked Daily: 5 If you are a former smoker, when did you quit?: 12/03 Information on smoking cessation initiated: No 'Breaking Loose' booklet given: 01/03/18 Hx Alcohol Use: No Drug/Substance Use Hx: No Substance Use Type: None Hx Substance Use Treatment: No Review of Systems - Review of Systems Able to Perform ROS?: No Comments:: 08/10/18 12:12 Patient screaming, will not answer *Physical Exam - Vital Signs Last Vital Signs Temp Pulse Resp BP Pulse Ox 100 H 24 H 180/100 H 100 08/10/18 08:03 08/10/18 08:03 08/10/18 08:03 08/10/18 08:03 - Physical Exam Comments: General: Uncomfortable, in some distress, screaming HEENT: PERRL, EOMI, MMM Cards: Slightly tachycardic, no rub or murmur noted Pulm: Comfortable on room air Abd: Soft, nontender, nondistended Ext: Atraumatic. No LE edema. ROM intact. Strength 5/5 and equal bilaterally Vasc: Extremities WWP. Skin: Normal color, no rashes or lesions Neuro: A&Ox3, CN grossly intact, normal speech, motor/sensory grossly intact and symmetric Psych: Mood appropriate to situation Heart Score/ECG Review - History History: Highly suspicious - Age Age: </= 45 - Risk Factors Risk Factors Heart Score: Yes Hx Hypercholesterolemia, Yes Hx Hypertension, Yes Hx Diabetes, Yes Smoking History Based on the list above the patient has:: >/=3 risk factors or Hx atherosclerotic disease - Troponin Troponin: 1-3x normal limit - ECG Intrepretation Rhythm: Regular Rhythm - Garnavillo Garnavillo: Normal - P and MT Atrial Enlargement: Left Prominent R with upright T in V1 (true posterior ME): No - ST and T Non Specific ST-T Wave changes: Yes - ECG Impressions Normal ECG: No Non-specific ST Elevation: Yes Bradycardia: No ED Treatment Course - LABORATORY CBC & Chemistry Diagram: 08/10/18 08:15 08/10/18 08:15 - RADIOLOGY Radiology Studies Ordered: Category Date Time Status CXRPORT [CHEST X-RAY PORTABLE*] [RAD] Stat Radiology 08/10/18 07:56 Ordered - Medications Given in the ED: ED Medications Discontinued Medications Generic Name Dose Route Start Last Admin Trade Name Freq PRN Reason Stop Dose Admin Aspirin 324 mg 08/10/18 07:58 08/10/18 08:05 Asa - PO 08/10/18 07:59 324 mg ONCE ONE Administration Ondansetron HCl 4 mg 08/10/18 07:58 08/10/18 07:59 Zofran Injection IVPUSH 08/10/18 07:59 4 mg ONCE ONE Administration Medical Decision Making - Medical Decision Making 08/10/18 08:09 Jesusita Berry is a 38yo woman with a history of CAD x5 stents, most recent stent placed last Monday, previous ME (has had 9, per pt), CHF, HTN, DM, renal insufficiency, anxiety/depression, panic attacks, and gastroporesis who presents with chest pain and nausea/vomiting that "feels like a heart attack." - ACS order set initiated. CBC, CMP, coags, trop and CK. Lipase also sent to r/ o pancreatitis as pt also reports abdominal pain. - 324 chewable ASA, nitro x1 given without significant improvement. - 4mg IV zofran and 4mg IV morphine for symptoms - EKG reviewed. Possible ST depressions in S4 not seen previously, but poor quality. Will repeat when patient calm somewhat as she is currently having difficulty remaining still 08/10/18 08:25 - Continues to report nausea but no longer vomiting. 10mg IV reglan ordered - BP 180's/110's 08/10/18 09:27 - Additional IV morphine given per Dr Arias for continued pain - Chemistry returned. Trop 0.24, significantly less than trops over 4 last week during recent admission with NSTEMI - Dr Ng at bedside. Recommending stat echo, now ordered. 08/10/18 11:06 - Initially thought to have 20-25 beats of vtach, but when reviewed with multiple leads most likely artifact. Amio initially ordered, canceled per Dr Ng. - Patient reports echo completed. Not yet in computer. - Most likely transfer 08/10/18 12:21 - Discussed with Dr Ng; he discussed transfer to [facility] with Ms Berry and arranged for her to be accepted by Dr Chloe Santana at [facility] - Transfer consent signed at bedside and transfer initiated. Seen and discussed with Dr Arias. Magali Gar PGY1 *DC/Admit/Observation/Transfer Diagnosis at time of Disposition: ACS (acute coronary syndrome) - Discharge Dispostion Disposition: TRANSFER ACUTE CARE/OTHER HOSP - Referrals - Patient Instructions - Post Discharge Activity - Transfer to Acute Care Facility Receiving Facility: [facility] Accepting Physician:: Dr Chloe Santana Transfer comment: 08/10/18 12:[address] Ng.
[2018-08-10 08:24] LABS: BASO % 0.5 % (0-2.0); EOS % 1.1 % (0-4.5); HEMATOCRIT 32.2 % (32.4-45.2); HEMOGLOBIN 11.1 GM/dL (10.7-15.3); MCH 29.5 pg (25.7-33.7); MCHC 34.5 g/dl (32.0-36.0); MEAN CELL VOLUME 85.4 fl (80-96); MEAN PLT VOLUME 7.3 fl (7.5-11.1); MONO % 6.4 % (3.8-10.2); PLATELET COUNT 487 K/MM3 (134-434); RBC 3.77 M/mm3 (3.60-5.2); WHITE BLOOD COUNT 14.3 K/mm3 (4.0-10.0)
[2018-08-10 08:25] VITALS: BMI 23.5
[2018-08-10] MEDS ORDERED: METOCLOPRAMIDE HCL INJECTION 10 MG/2 ML VIAL IVPUSH ONE (08:25)
[2018-08-10] MEDS ORDERED: METOCLOPRAMIDE HCL INJECTION 10 MG/2 ML VIAL ONE (08:26)
[2018-08-10] MEDS ORDERED: HEPARIN NA (PORCINE) 5,000 UNITS/ML 1ML VIAL IVPUSH PRN ×3 (08:49→09:04)
[2018-08-10] MEDS ORDERED: HEPARIN NA (PORCINE) 5,000 UNITS/ML 1ML VIAL ONE (08:58)
[2018-08-10] MEDS ORDERED: HEPARIN INFUSION - 25,000 UNITS/500 ML INFUS.BAG IVPB ONE (08:58)
[2018-08-10] MEDS ORDERED: morphine SULFATE 4 MG/ML VIAL IVPUSH ONE (08:59)
[2018-08-10] MEDS ORDERED: HEPARIN - 25,000 UNIT in SODIUM CHLORIDE 495 ML IV SCH (09:00)
[2018-08-10] MEDS ORDERED: MORPHINE SULFATE 2 MG/ML VIAL ONE (09:01)
[2018-08-10 09:05] LABS: INR 0.96 (0.83-1.09); PROTHROMBIN TIME (PATIENT) 11.3 SEC (9.7-13.0)
[2018-08-10 09:07] LABS: ACTIVATED PTT 31.1 SECONDS (25.2-36.5)
[2018-08-10 09:21] LABS: ALBUMIN 4.2 g/dl (3.4-5.0); ALK PHOS 78 U/L (45-117); ANION GAP 8 MMOL/L (8-16); BILIRUBIN,TOTAL 0.2 mg/dL (0.2-1); BLOOD UREA NITROGEN 15 mg/dL (7-18); CALCIUM 9.2 mg/dL (8.5-10.1); CHLORIDE 100 mmol/L (98-107); CO2 26 mmol/L (21-32); CREATININE 1.1 mg/dL (0.55-1.3); GLUCOSE,RANDOM 276 mg/dL (74-106); N-TERMINAL BNP 330.2 pg/ml (5-125); POTASSIUM 4.1 mmol/L (3.5-5.1); SGOT/AST 40 U/L (15-37); SGPT/ALT 56 U/L (13-61); SODIUM 134 mmol/L (136-145); TOT PROT 8.7 g/dl (6.4-8.2)
[2018-08-10] MEDS ORDERED: LABETALOL HCL 5 MG/1 ML (100MG/20 ML VIAL) IVPUSH ONE (09:47)
[2018-08-10] MEDS ORDERED: AMIODARONE IN DEXTROSE,ISO-OSM 150 MG/100 ML BAG IVPB ONE (11:05)
--- NOTE | 2018-08-10 11:17 | ECHO ---
Name: BEVERLEY PARKER Exam:Adult Echocardiogram Study Date: 08/10/2018 10:16 AM Age: 38 yrs Reason For Study: CAD MULTIPLE STENTS,CHEST PAIN Height: 69 in Weight: 159 lb BSA: 1.9 m2 MMode/2D Measurements & Calculations IVSd: 0.71 cm Ao root diam: 3.3 cm LVIDd: 5.1 cm LA dimension: 4.0 cm LVIDs: 2.9 cm ACS: 1.9 cm LVPWd: 0.89 cm IVSs: 1.2 cm LVPWs: 1.1 cm EDV(Teich): 125.0 ml ESV(Teich): 31.5 ml Doppler Measurements & Calculations MV E max jo ann: 109.1 cm/sec Ao V2 max: 124.9 cm/sec MV A max jo ann: 66.1 cm/sec Ao max P.2 mmHg MV E/A: 1.6 Ao V2 mean: 89.5 cm/sec Ao mean P.6 mmHg Ao V2 VTI: 28.7 cm TR max jo ann: 275.2 cm/sec Med Peak E' Jo Ann: 5.4 cm/sec TR max P.4 mmHg Med E/e': 20.3 Lat Peak E' Jo Ann: 8.6 cm/sec Lat E/e': 12.7 Left Ventricle Left ventricular systolic function is borderline reduced. Ejection Fraction = 50%. Moderate lateral w all hypokinesis. Mild apical hypokinesis. Right Ventricle The right ventricle is normal in size and function. Atria The left atrium is mildly dilated. Mitral Valve The mitral valve is normal in structure and function. There is no mitral valve stenosis. There is mil d mitral regurgitation. Tricuspid Valve The tricuspid valve is not well visualized, but is grossly normal. There is mild tricuspid regurgitat ion. Right ventricular systolic pressure is normal. Aortic Valve The aortic valve opens well. No hemodynamically significant valvular aortic stenosis. No aortic regur gitation is present. Pulmonic Valve The pulmonic valve leaflets are thin and pliable; valve motion is normal. There is no pulmonic valvul ar stenosis. Great Vessels The aortic root is normal size. Pericardium/Pleura There is no pericardial effusion. Interpretation Summary Left ventricular systolic function is borderline reduced. Moderate lateral wall hypokinesis. Mild apical hypokinesis. The right ventricle is normal in size and function. The left atrium is mildly dilated. There is mild mitral regurgitation. There is mild tricuspid regurgitation. There is no pericardial effusion. MD Zambrano *Berenice 08/10/2018 11:16 AM
[2018-08-10] MEDS ORDERED: METOPROLOL TARTRATE 25 MG TABLET (FP) PO ONE (11:19)
[2018-08-10] MEDS ORDERED: NITROGLYCERIN 50 MG/10 ML VIAL IVPB SCH (11:30)
[2018-08-10] MEDS ORDERED: NITROGLYCERIN 25MG/D5W 250ML 25 MG/250 ML ML IVPB SCH (11:45)
[2018-08-10] MEDS ORDERED: NITROGLYCERIN 25MG/D5W 250ML 250 ML IVPB SCH (11:45)
[2018-08-10] MEDS ORDERED: METOPROLOL TARTRATE 25 MG TABLET (FP) ONE (12:04)
--- NOTE | 2018-08-10 13:01 | CON.CARD ---
Cardiology Consult (text) - Consultation Consultation Note: Consult Dictated IMP: CAD s/p NSTEMIs, recent NSTEMI with PCI OM approximately one week ago DM HTN Now with recurrent substernal chest pain radiating to left shoulder and + cardiac enzymes c/w recurrent ACS REC: 1. Continue dual antiplatelet Rx 2. Lopressor 25mg PO x 1 now, BP now improved with control of angina. 3. Echo demonstrates lateral wall hypokinesis, raising concern for recent stent compromise, no pericardial effusion, normal aortic root and no sig PHTN 4. Continue IV heparin gtts, plan to transfer to [facility] as she will likely require repeat left heart cath.
[2018-08-10 13:45] VITALS: TEMP 97.7
[2018-08-10 13:49] VITALS: BP 119/80; PULSE 61
--- NOTE | 2018-08-10 14:27 | CONS ---
CARDIOLOGY CONSULTATION DATE OF CONSULTATION: DATE OF DICTATION: 08/10/2018 REQUESTED BY: Edgard Arias MD REASON FOR CONSULTATION: The consultation is requested for chest pain and positive troponin. HISTORY OF PRESENT ILLNESS: The patient is a 38-year-old female well known to me from office practice and multiple hospitalizations here at [facility]. Her past medical history is extensive and is significant for coronary artery disease, status post multiple non-STEMIs, PCIs, and recent stenting of the obtuse marginal after presenting here with a non-STEMI approximately last week. The patient states she went home last Monday and soon thereafter began experiencing similar left-sided substernal chest pressure with radiation to the left shoulder that she felt prior to the stent. She allowed it to go on for several days and then last evening it awoke her and was more significant and lasting longer and therefore brought her back to the emergency room. She denies palpitations, shortness of breath, pleuritic pain, cough. She does state that she had a fever reportedly of 103 two days ago which then subsided. She denies any rashes. In the emergency department, her 12-lead ECG showed normal sinus rhythm with nonspecific ST changes in leads 1, aVL, and the lateral precordial lead that was overall similar to how she presented several weeks ago. An echocardiogram was performed which showed lateral wall hypokinesis, normal aortic root diameter, no pericardial effusion, and no evidence of pulmonary hypertension. She was then found to have a positive troponin of 0.24 and an elevated CK of 294 and was then started on IV heparin. Initially, she was quite hypertensive when she presented, 185/108; she was in significant chest pain, at that time. She was subsequently given nitroglycerin with control of pain and Lopressor and blood pressure has now come down to 139/75 and she appears comfortable. PAST MEDICAL HISTORY: Is as above and significant for extensive coronary artery disease as described with multiple previous MIs and percutaneous coronary interventions, long-standing diabetes, diabetic gastroparesis, and chronic hypertension. She also has an unspecified psychiatric disorder/depression and anxiety. ALLERGIES: She has allergies to KEFLEX. HOME MEDICATIONS: Include metformin 500 mg p.o. b.i.d.; labetalol of 100 mg p.o. b.i.d.; Neurontin 300 mg p.o. nightly; Lexapro 5 mg p.o. daily; atorvastatin 5 mg nightly - unclear why she listed 5 mg, she was previously on 80 mg; aspirin 81 mg daily; Brilinta 90 mg p.o. b.i.d.; Ranexa 500 mg p.o. b.i.d.; Seroquel of 25 mg p.o. nightly; and Protonix 40 mg p.o. daily. FAMILY HISTORY: Noncontributory. SOCIAL HISTORY: She smokes marijuana regularly. Denies tobacco use or illicit drug use. Social alcohol. Lives with her boyfriend. PHYSICAL EXAMINATION: Vital signs: She was febrile in the emergency department, blood pressure 139/75 currently, pulse 67, O2 saturation 100 on room air. Vascular: All vascular pulses were 2+ and symmetric bilaterally in the carotid, brachial, radial, and dorsalis pedis distribution. Heart: Regular without murmurs. Chest: Clear. No wheezing. Abdomen: Soft. Nontender. No rebound or guarding tenderness. Extremities: No edema. ECG is as described above. White count was mildly elevated 14.3, hematocrit 32.2, platelet count 487. INR 0.96. Sodium 134, potassium 4.1, creatinine 1.1. LFTs were basically normal. CK elevated at 294, troponin elevated at 0.24. Lipase was normal. Chest x-ray showed no acute pathology. Echo was as described above. IMPRESSION: 1. Coronary artery disease. Status post multiple [id number] myocardial infarctions, recent awu-[id number] myocardial infarction here, with subsequent percutaneous coronary intervention of the obtuse marginal approximately 1 week ago at [facility]. 2. Long-standing diabetes. 3. Chronic hypertension. Now presenting with recurrent substernal chest pain radiation to the left shoulder, positive cardiac enzymes, all consistent with what appears to be a recurrent acute coronary syndrome. Her repeat echocardiogram shows no enlargement of the aorta, no pericardial disease, and no evidence of significant pulmonary hypertension, which reasonably excludes pericarditis, and along with the other clinical factors, excludes pulmonary embolism or aortic dissection as likely possibilities. RECOMMENDATIONS: 1. Continue dual-antiplatelet therapy. 2. Has been given Lopressor 25 mg p.o. x1 dose and nitroglycerin tablets which have improved her anginal pain and have now normalized her blood pressure. 3. Echocardiogram, as described above, shows lateral wall hypokinesis, raising concern for recent stent compromise. 4. Will continue IV heparin and plan to transfer to [facility] today, as she will likely require a repeat diagnostic left heart catheterization. Thank you for the consultation. DANNIELLE MARSH M.D. [id number]
--- NOTE | 2018-08-11 12:08 | EKG ---
Test Reason : Blood Pressure : / mmHG Vent. Rate : 081 BPM Atrial Rate : 081 BPM P-R Int : 132 ms QRS Dur : 082 ms QT Int : 418 ms P-R-T Axes : 026 016 124 degrees QTc Int : 485 ms POOR DATA QUALITY, INTERPRETATION MAY BE ADVERSELY AFFECTED NORMAL SINUS RHYTHM POSSIBLE LEFT ATRIAL ENLARGEMENT ABNORMAL ECG WHEN COMPARED WITH ECG OF 10-AUG-2018 07:54, NO SIGNIFICANT CHANGE WAS FOUND Confirmed by SUJATHA SUNG MD ([id number]) on 08/11/2018 12:08:33 PM Referred By: Confirmed By:SUJATHA SUNG MD
--- NOTE | 2018-08-11 12:09 | EKG ---
Test Reason : Blood Pressure : / mmHG Vent. Rate : 085 BPM Atrial Rate : 085 BPM P-R Int : 144 ms QRS Dur : 082 ms QT Int : 392 ms P-R-T Axes : 050 005 111 degrees QTc Int : 466 ms POOR DATA QUALITY, INTERPRETATION MAY BE ADVERSELY AFFECTED NORMAL SINUS RHYTHM POSSIBLE LEFT ATRIAL ENLARGEMENT ABNORMAL ECG WHEN COMPARED WITH ECG OF 02-AUG-2018 09:56, NEW ST ABNORMALITY PRESENT Confirmed by SUJATHA SUNG MD ([id number]) on 08/11/2018 12:08:55 PM Referred By: Confirmed By:SUJATHA SUNG MD
== END 2018-08-10 15:30 | disposition short-term general hospital (02) ==
LOC: JER 07:51
PROC: 3E033GC Introduction of Other Therapeutic Substance into Peripheral Vein, Percutaneous Approach (ICD-10-PCS; principal; 2018-08-10)
PROC: 3E033NZ Introduction of Analgesics, Hypnotics, Sedatives into Peripheral Vein, Percutaneous Approach (ICD-10-PCS; 2018-08-10)
DX: I24.9 Acute ischemic heart disease, unspecified (principal); I25.2 Old myocardial infarction; Z95.5 Presence of coronary angioplasty implant and graft; I25.10 Atherosclerotic heart disease of native coronary artery without angina pectoris; E78.00 Pure hypercholesterolemia, unspecified; I10 Essential (primary) hypertension; E11.9 Type 2 diabetes mellitus without complications; Z87.891 Personal history of nicotine dependence
CPT/HCPCS: 36415; 71045-TC-FY; 80053; 82550; 82553; 83690; 83880; 84484; 85025; 85610; 85730; 93005; 93010; 93306-TC; 99285-25; J1644

== ENCOUNTER 2018-11-06 15:40 | Inpatient (IN) | payer BC, OTHER ==
[2018-11-06] MEDS ORDERED: ASPIRIN 325 MG TABLET PO ONE (15:55)
[2018-11-06] MEDS ORDERED: HEPARIN NA (PORCINE) 5,000 UNITS/ML 1ML VIAL IVPUSH PRN ×3 (15:56→16:45)
[2018-11-06] MEDS ORDERED: ASPIRIN 325 MG TABLET ONE (16:14)
[2018-11-06] MEDS ORDERED: HEPARIN NA (PORCINE) 5,000 UNITS/ML 1ML VIAL ONE (16:14)
[2018-11-06] MEDS ORDERED: morphine CARPU-JECT 2 MG/1 ML DISP.SYRIN IM ONE (16:33)
--- NOTE | 2018-11-06 16:33 | CON.CARD ---
Cardiology Consult (text) - Consultation Consultation Note: Well known to me: DM, CAD s/p multiple KS, multivessel PCI last in 07/2019 of OM complicated by stent thrombosis requiring urgent re-intervention. Seen in office today w/ 2 weeks typical anginal sx and ECG w/ lateral TWI. Sent to ER for UA possible NSTEMI. REC: 1. Stat labs 2. Serial enzymes and ECGs 3. Telemetry 4. Echo 5. Start UFH gtts after labs, may need to reload with Plavix if TnI + 6. Will likely require repeat cath.
--- NOTE | 2018-11-06 16:33 | PDOC ---
History of Present Illness - General Chief Complaint: Chest Pain Stated Complaint: SENT BY PCP/ABNORMAL EKG Time Seen by Provider: 11/06/18 15:54 Past History - Past Medical History Allergies/Adverse Reactions: Allergies Allergy/AdvReac Type Severity Reaction Status Date / Time cephalexin monohydrate Allergy Severe Hives Verified 11/06/18 15:45 [From Keflex] Home Medications: Ambulatory Orders Aspirin [Aspirin EC] 81 mg PO DAILY 11/13/15 metFORMIN HCL [Metformin HCl] 500 mg PO BID 08/25/16 Ranolazine [Ranexa -] 500 mg PO BID #60 tab 12/18/17 Labetalol HCl [Normodyne -] 100 mg PO BID #60 tablet 01/05/18 Atorvastatin Calcium [Lipitor] 5 mg PO HS 05/06/18 Escitalopram Oxalate [Lexapro] 5 mg PO DAILY 05/06/18 Gabapentin 300 mg PO HS 05/06/18 Pantoprazole Sodium [Protonix] 40 mg PO DAILY 05/06/18 Quetiapine Fumarate [Seroquel -] 25 mg PO HS 05/06/18 Ticagrelor [Brilinta] 90 mg PO BID 05/06/18 Anemia: No Asthma: No Cancer: Yes (cervical ca) Cardiac Disorders: Yes (CHF) CVA: No COPD: No CHF: Yes DVT: No Dementia: No Diabetes: Yes GI Disorders: Yes (GASTROPARESIS) Disorders: No HTN: Yes Hypercholesterolemia: Yes Liver Disease: No Psychiatric Problems: Yes (anxiety) Seizures: No Thyroid Disease: No - Surgical History Abdominal Surgery: No Appendectomy: No Cardiac Surgery: Yes (5 stents//last on 08/03/18) Cholecystectomy: No Lung Surgery: No Neurologic Surgery: No Orthopedic Surgery: Yes (right ROTATOR CUFF REPAIR) - Reproductive History (#): 5 Para: 0 Cervical CA: Yes Dysfunctional Uterine Bleeding: Yes Ectopic : Yes Endometrial CA: Yes Therapeutic (s) & number: Yes (1) Spontaneous : 4 - Immunization History Immunization Up to Date: Yes - Suicide/Smoking/Psychosocial Hx Smoking Status: Yes (QUIT 3 MONTHS AGO) Smoking History: Former smoker Have you smoked in the past 12 months: No Number of Cigarettes Smoked Daily: 5 If you are a former smoker, when did you quit?: 12/20/17 Information on smoking cessation initiated: Yes 'Breaking Loose' booklet given: 01/03/18 Hx Alcohol Use: No Drug/Substance Use Hx: Yes (MARIJUANA) Substance Use Type: None Hx Substance Use Treatment: No *Physical Exam - Vital Signs Last Vital Signs Temp Pulse Resp BP Pulse Ox 98 F 84 18 143/70 99 11/06/18 15:40 11/06/18 15:40 11/06/18 15:40 11/06/18 15:40 11/06/18 15:40 Moderate Sedation - Procedure Monitoring Vital Signs: Procedure Monitoring Vital Signs Temperature 98 F 11/06/18 15:40 Pulse Rate 84 11/06/18 15:40 Respiratory Rate 18 11/06/18 15:40 Blood Pressure 143/70 11/06/18 15:40 O2 Sat by Pulse Oximetry (%) 99 11/06/18 15:40 ED Treatment Course - RADIOLOGY Radiology Studies Ordered: Category Date Time Status CHEST X-RAY PORTABLE* [RAD] Stat Radiology 11/06/18 15:54 Ordered Medical Decision Making - Medical Decision Making 11/06/18 16:47 ED Course: Consider acs vs nstemi vs stemi vs unstable angina vs arrythmia EKG: T wave inversion in I, V5, V6
[2018-11-06] MEDS ORDERED: MORPHINE SULFATE 2 MG/ML VIAL ONE ×2 (16:40→16:48)
[2018-11-06] MEDS ORDERED: morphine CARPU-JECT 4 MG/1 ML DISP.SYRIN IVPUSH ONE (16:44)
[2018-11-06] MEDS ORDERED: HEPARIN SOD,PORK IN 0.45% NACL 25,000 UNITS/500 ML INFUS.BAG IVPB SCH (16:45)
--- NOTE | 2018-11-06 16:47 | PDOC ---
Attending Attestation - HPI HPI: 11/06/18 18:13 The patient is a 38 year old female with a significant past medical history of hypertension, hyperlipidemia, diabetes, CHF, mi (multiple stents ), gastroparesis, renal insufficiency, and depression who presents to the emergency department with chest pain for 2 weeks. The patient describes her chest pain as a substernal, pressure like sensation that was worsened today. The patient reports that she subsequently went to her doctor's office (Dr. Ng) by which he sent the patient to the ED for abnormal EKG. the patient endorses some shortness of breath with her chest pain. It is noted that the patient has history of marijuana and ecstasy abuse. She denies any fever, chills, nausea, vomiting, diarrhea, constipation or urinary symptoms. She denies any headache or dizziness. The patient denies any other complaints. Documentation prepared by Omer Mcclendon, acting as medical assistant supervisor for Juju Jung MD. <Omer Mcclendon - Last Filed: 11/06/18 18:12> - Resident Resident Name: Shiloh Bhat - ED Attending Attestation I have performed the following: I have examined & evaluated the patient, The case was reviewed & discussed with the resident, I agree w/resident's findings & plan, Exceptions are as noted - HPI HPI: 11/06/18 16:46 38 yo female sent in for admission by her spot sprayer for new ekg changes. - Physicial Exam PE: 11/06/18 20:28 38 yo female in no acute distress who has experienced 2 days of chest pain head ncat eyes eomi neck supple lungs cta b/l cvs [id number] abd nontender ext no erythema skn warm and dry neuro axox3,ambulatory psych appropriate - Medical Decision Making 11/06/18 18:00 38-year-old female referred in by Dr. Ng with a past medical history of diabetes, coronary artery disease, status post multiple myocardial infarctions, multivessel PCI, last in July 2018 of OM by stent thrombosis requiring urgent intervention. She was seen today by Dr. Ng this is a typical anginal symptoms. the EKG had new lateral T-wave inversions Emergency department for unstable angina and possible NSTEMI Dr Ng recommended serial cardiac enzymes and ekgs admission to telemetry, echo, start unfractionated heparin drip after labs, may need to reload Plavix if positive troponin. This patient may require repeat cardiac cath in the morning -first trop was 0.06 and pt was admitted to telemetry 11/06/18 20:31 11/06/18 20:34 <Juju Jung - Last Filed: 11/06/18 20:34>
[2018-11-06 17:00] LABS: BASO % 0.8 % (0-2.0); EOS % 1.9 % (0-4.5); HEMATOCRIT 30.2 % (32.4-45.2); HEMOGLOBIN 10.5 GM/dL (10.7-15.3); LYMPH % 24.9 % (8-40); MCH 28.3 pg (25.7-33.7); MCHC 34.8 g/dl (32.0-36.0); MEAN CELL VOLUME 81.3 fl (80-96); MEAN PLT VOLUME 7.9 fl (7.5-11.1); MONO % 11.6 % (3.8-10.2); NEUT % 60.8 % (42.8-82.8); PLATELET COUNT 428 K/MM3 (134-434); RBC 3.71 M/mm3 (3.60-5.2); RDW 18.6 % (11.6-15.6); WHITE BLOOD COUNT 6.9 K/mm3 (4.0-10.0)
[2018-11-06 17:05] LABS: BASO % 1.9 % (0-2.0); EOS % 1.8 % (0-4.5); HEMATOCRIT 31.2 % (32.4-45.2); HEMOGLOBIN 10.7 GM/dL (10.7-15.3); LYMPH % 25.7 % (8-40); MCH 27.6 pg (25.7-33.7); MCHC 34.2 g/dl (32.0-36.0); MEAN CELL VOLUME 80.8 fl (80-96); MEAN PLT VOLUME 7.1 fl (7.5-11.1); MONO % 12.7 % (3.8-10.2); NEUT % 57.9 % (42.8-82.8); PLATELET COUNT 355 K/MM3 (134-434); RBC 3.85 M/mm3 (3.60-5.2); RDW 18.4 % (11.6-15.6); WHITE BLOOD COUNT 6.3 K/mm3 (4.0-10.0)
[2018-11-06 17:06] LABS: URINE APPEARANCE SLCLOUDY; URINE BILIRUBIN NEGATIVE (<2.0 mg/dL); URINE COLOR LTYELLOW; URINE GLUCOSE (UA) NEGATIVE (NEGATIVE); URINE KETONE NEGATIVE (NEGATIVE); URINE LEUK ESTERASE NEGATIVE (NEGATIVE); URINE NITRITE NEGATIVE (NEGATIVE); URINE PROTEIN NEGATIVE (NEGATIVE); URINE UROBILINOGEN NEGATIVE mg/dL (0.2-1.0)
--- NOTE | 2018-11-06 17:07 | PDOC ---
History of Present Illness - General Chief Complaint: Chest Pain Stated Complaint: SENT BY PCP/ABNORMAL EKG Time Seen by Provider: 11/06/18 15:54 - History of Present Illness Initial Comments: 11/06/18 17:00 38 year old woman with a history of CAD, CHF, HTN, HLD, gastritis, renal insuff , anxiety, depression, DM, who presents with 2 weeks of exertional substernal pressure like chest pain that was worse today so she went to her PCP who saw EKG changes and sent her to this ED. The patient reports that her chest pain feels the same as when her stent was occluded and PCP notes that she has previously occluded her stent. Patient has a history of marijuana and ecstasy abuse. She is anxious at bedside and is concerned about her chest pain. She admits to some shortness of breath but denies nausea, diaphoresis, recent illness, abdominal pain, dysuria, hematuria. She has no other complaints at bedside. PCP: patricia Past History - Past Medical History Allergies/Adverse Reactions: Allergies Allergy/AdvReac Type Severity Reaction Status Date / Time cephalexin monohydrate Allergy Severe Hives Verified 11/06/18 15:45 [From [facility]] Home Medications: Ambulatory Orders Aspirin [Aspirin EC] 81 mg PO DAILY 11/13/15 metFORMIN HCL [Metformin HCl] 500 mg PO BID 08/25/16 Ranolazine [Ranexa -] 500 mg PO BID #60 tab 12/18/17 Labetalol HCl [Normodyne -] 100 mg PO BID #60 tablet 01/05/18 Atorvastatin Calcium [Lipitor] 5 mg PO HS 05/06/18 Gabapentin 300 mg PO HS 05/06/18 Pantoprazole Sodium [Protonix] 40 mg PO DAILY 05/06/18 Quetiapine Fumarate [Seroquel -] 25 mg PO HS 05/06/18 Ticagrelor [Brilinta] 90 mg PO BID 05/06/18 Anemia: No Asthma: No Cancer: Yes (cervical ca) Cardiac Disorders: Yes (CHF) CVA: No COPD: No CHF: Yes DVT: No Dementia: No Diabetes: Yes GI Disorders: Yes (GASTROPARESIS) Disorders: No HTN: Yes Hypercholesterolemia: Yes Liver Disease: No Psychiatric Problems: Yes (anxiety) Seizures: No Thyroid Disease: No - Surgical History Abdominal Surgery: No Appendectomy: No Cardiac Surgery: Yes (5 stents//last on 08/03/18) Cholecystectomy: No Lung Surgery: No Neurologic Surgery: No Orthopedic Surgery: Yes (right ROTATOR CUFF REPAIR) - Reproductive History (#): 5 Para: 0 Cervical CA: Yes Dysfunctional Uterine Bleeding: Yes Ectopic : Yes Endometrial CA: Yes Therapeutic (s) & number: Yes (1) Spontaneous : 4 - Immunization History Immunization Up to Date: Yes - Suicide/Smoking/Psychosocial Hx Smoking Status: Yes (QUIT 3 MONTHS AGO) Smoking History: Former smoker Have you smoked in the past 12 months: No Number of Cigarettes Smoked Daily: 5 If you are a former smoker, when did you quit?: 12/20/17 Information on smoking cessation initiated: Yes 'Breaking Loose' booklet given: 01/03/18 Hx Alcohol Use: No Drug/Substance Use Hx: Yes (MARIJUANA) Substance Use Type: None Hx Substance Use Treatment: No *Physical Exam - Vital Signs Last Vital Signs Temp Pulse Resp BP Pulse Ox 98 F 76 17 114/87 100 11/06/18 15:40 11/06/18 16:38 11/06/18 16:38 11/06/18 16:38 11/06/18 16:38 - Physical Exam Comments: 11/06/18 17:07 unremarkable exam Moderate Sedation - Procedure Monitoring Vital Signs: Procedure Monitoring Vital Signs Temperature 98 F 11/06/18 15:40 Pulse Rate 76 11/06/18 16:38 Respiratory Rate 17 11/06/18 16:38 Blood Pressure 114/87 11/06/18 16:38 O2 Sat by Pulse Oximetry (%) 100 11/06/18 16:38 ED Treatment Course - LABORATORY CBC & Chemistry Diagram: 11/06/18 16:49 11/06/18 16:49 - ADDITIONAL ORDERS Additional order review: Laboratory Results 11/06/18 16:30 Sodium Cancelled Potassium Cancelled Chloride Cancelled Carbon Dioxide Cancelled Anion Gap Cancelled BUN Cancelled Creatinine Cancelled Creat Clearance w eGFR Cancelled Random Glucose Cancelled Calcium Cancelled Total Bilirubin Cancelled AST Cancelled ALT Cancelled Alkaline Phosphatase Cancelled Troponin I Cancelled Total Protein Cancelled Albumin Cancelled - RADIOLOGY Radiology Studies Ordered: Category Date Time Status CHEST X-RAY PORTABLE* [RAD] Stat Radiology 11/06/18 15:54 Ordered - Medications Given in the ED: ED Medications Discontinued Medications Generic Name Dose Route Start Last Admin Trade Name Freq PRN Reason Stop Dose Admin Aspirin 325 mg 11/06/18 15:55 11/06/18 16:18 Asa - PO 11/06/18 15:56 325 mg ONCE ONE Administration Medical Decision Making - Medical Decision Making 11/06/18 17:07 38 year old woman with a history of CAD, CHF, HTN, HLD, gastritis, renal insuff , anxiety, depression, DM, who presents with 2 weeks of exertional substernal pressure like chest pain that was worse today so she went to her PCP who saw EKG changes and sent her to this ED. The patient reports that her chest pain feels the same as when her stent was occluded and PCP notes that she has previously occluded her stent. Patient has a history of marijuana and ecstasy abuse. ED Course: Consider STEMI vs NSTEMI vs arrythmia vs ACS vs angina cbc, cmp, trop, ekg, cxr dosed ASA, heparin bolus, heparin gtt morphine 4 11/06/18 17:07 EKG: new T wave inversions I, V5,V6, nsr 55 bpm *DC/Admit/Observation/Transfer Diagnosis at time of Disposition: NSTEMI (non-ST elevated myocardial infarction) - Discharge Dispostion Condition at time of disposition: Fair Decision to Admit order: Yes - Referrals - Patient Instructions - Post Discharge Activity
[2018-11-06] MEDS ORDERED: HEPARIN INFUSION - 25,000 UNITS/500 ML INFUS.BAG IVPB ONE (17:14)
[2018-11-06 17:19] LABS: INR 1.01 (0.83-1.09); PROTHROMBIN TIME (PATIENT) 11.9 SEC (9.7-13.0)
[2018-11-06 17:22] LABS: ACTIVATED PTT 22.9 SECONDS (25.2-36.5)
[2018-11-06 17:31] LABS: ALBUMIN 3.8 g/dl (3.4-5.0); ALK PHOS 52 U/L (45-117); ANION GAP 7 MMOL/L (8-16); BILIRUBIN,TOTAL 0.2 mg/dL (0.2-1); BLOOD UREA NITROGEN 10 mg/dL (7-18); CALCIUM 9.3 mg/dL (8.5-10.1); CHLORIDE 104 mmol/L (98-107); CO2 24 mmol/L (21-32); CREATININE 0.9 mg/dL (0.55-1.3); GLUCOSE,RANDOM 130 mg/dL (74-106); POTASSIUM 4.2 mmol/L (3.5-5.1); SGOT/AST 12 U/L (15-37); SGPT/ALT 16 U/L (13-61); SODIUM 134 mmol/L (136-145); TOT PROT 7.6 g/dl (6.4-8.2)
[2018-11-06 17:33] LABS: COCAINE, UR NEGATIVE ng/ml (CUTOFF=300); METHADONE, UR NEGATIVE ng/ml (CUTOFF=300); OPIATES, URI NEGATIVE ng/ml (CUTOFF=300); PHENCYCLIDINE,URINE NEGATIVE ng/ml (CUTOFF=25); URINE AMPHETAMINES NEGATIVE ng/ml (CUTOFF=500); URINE BARBITURATES NEGATIVE ng/ml (CUTOFF=200); URINE BENZODIAZEPINES NEGATIVE ng/ml (CUTOFF=200)
[2018-11-06] MEDS ORDERED: CLOPIDOGREL BISULFATE 300 MG TABLET PO ONE (17:57)
[2018-11-06] MEDS ORDERED: CLOPIDOGREL BISULFATE 300 MG TABLET ONE (18:15)
[2018-11-06] MEDS ORDERED: ATORVASTATIN CA 80 MG TABLET (FP) PO ONE (18:21)
--- NOTE | 2018-11-06 18:22 | HP ---
CHIEF COMPLAINT: chest pain PCP: PCP: patricia HISTORY OF PRESENT ILLNESS: 38 year old woman with a history of CAD, HTN, HLD, gastritis, renal insuff, anxiety, depression, DM, 6 stents, stent thrombosis multiple PCI now was sent in by her equip tech for chest pain. pt states that she has has ongoing chest pain from months but from last 2 week pain frequency has increased and from last 4 days. pain is radiating to her left arm and is of same kind when she has MS and stent occlusion. Pain is pressure type, increases with minimum activity. Denies trouble breathing, palpitations, lightheadedness, dizzines, swelling in legs. In ER pt had ekg which shows T wave invesrions in lateral lead, trop 0.06. Pt got morphine, aspirin an plavix loading dose. pt is started on heparin drip in er. Last pci was in july and after few days pt gain had pain and was diagnosed with sent thrombosis. ER course was notable for: (1)cbc, cmp (2)ekg Recent Travel: none PAST MEDICAL HISTORY:as above PAST SURGICAL HISTORY: R rotatorcough tear. Social History: Smoking:cigar 4 a day stopped 1 year ago Alcohol:no Drugs: marijuana. Last time 5 days ago. Family History: Allergies cephalexin monohydrate [From [facility]] Allergy (Severe, Verified 11/06/18 15:45) Hives HOME MEDICATIONS: Home Medications Medication Instructions Recorded Aspirin [Aspirin EC] 81 mg PO DAILY 11/13/15 metFORMIN HCL [Metformin HCl] 500 mg PO BID 08/25/16 Ranolazine [Ranexa -] 500 mg PO BID #60 tab 12/18/17 Labetalol HCl [Normodyne -] 100 mg PO BID #60 tablet 01/05/18 Atorvastatin Calcium [Lipitor] 5 mg PO HS 05/06/18 Gabapentin 300 mg PO HS 05/06/18 Pantoprazole Sodium [Protonix] 40 mg PO DAILY 05/06/18 Quetiapine Fumarate [Seroquel -] 25 mg PO HS 05/06/18 Ticagrelor [Brilinta] 90 mg PO BID 05/06/18 REVIEW OF SYSTEMS CONSTITUTIONAL: Absent: fever, chills, diaphoresis, generalized weakness, malaise, loss of appetite, weight change HEENT: Absent: rhinorrhea, nasal congestion, throat pain, throat swelling, difficulty swallowing, mouth swelling, ear pain, eye pain, visual changes CARDIOVASCULAR: Absent: chest pain, syncope, palpitations, irregular heart rate, lightheadedness , peripheral edema RESPIRATORY: Absent: cough, shortness of breath, dyspnea with exertion, orthopnea, wheezing, stridor, hemoptysis GASTROINTESTINAL: Absent: abdominal pain, abdominal distension, nausea, vomiting, diarrhea, constipation, melena, hematochezia GENITOURINARY: Absent: dysuria, frequency, urgency, hesitancy, hematuria, flank pain, genital pain MUSCULOSKELETAL: Absent: myalgia, arthralgia, joint swelling, back pain, neck pain SKIN: Absent: rash, itching, pallor HEMATOLOGIC/IMMUNOLOGIC: Absent: easy bleeding, easy bruising, lymphadenopathy, frequent infections ENDOCRINE: Absent: unexplained weight gain, unexplained weight loss, heat intolerance, cold intolerance NEUROLOGIC: Absent: headache, focal weakness or paresthesias, dizziness, unsteady gait, seizure, mental status changes, bladder or bowel incontinence PSYCHIATRIC: Absent: anxiety, depression, suicidal or homicidal ideation, hallucinations. PHYSICAL EXAMINATION Vital Signs - 24 hr 11/06/18 11/06/18 11/06/18 15:40 15:57 16:38 Temperature 98 F Pulse Rate 84 Pulse Rate [ 76 Right Radial] Respiratory 18 17 Rate Blood Pressure 143/70 Blood Pressure 114/87 [Left Arm] O2 Sat by Pulse 99 100 100 Oximetry (%) GENERAL: Awake, alert, and fully oriented, in no acute distress. HEAD: Normal with no signs of trauma. EYES: Pupils equal, round and reactive to light, extraocular movements intact, EARS, NOSE, THROAT: Moist mucous membranes. NECK: Normal range of motion, supple without lymphadenopathy, JVD, or masses. LUNGS: Breath sounds equal, clear to auscultation bilaterally. No wheezes, and no crackles. No accessory muscle use. HEART: Regular rate and rhythm, normal S1 and S2 without murmur ABDOMEN: Soft, nontender, not distended, normoactive bowel sounds, no guarding, no rebound, no masses. MUSCULOSKELETAL: Normal range of motion at all joints. No bony deformities or tenderness. No CVA tenderness. UPPER EXTREMITIES: 2+ pulses, warm, well-perfused. No cyanosis. No clubbing. No peripheral edema. LOWER EXTREMITIES: warm, well-perfused. No calf tenderness. No peripheral edema. NEUROLOGICAL: Cranial nerves II-XII intact. Normal speech. Normal gait. pt seen walking in er PSYCHIATRIC: Cooperative. Good eye contact. SKIN: Warm, dry, Laboratory Results - last 24 hr 11/06/18 11/06/18 11/06/18 16:30 16:30 16:30 WBC 6.9 RBC 3.71 Hgb 10.5 L Hct 30.2 L MCV 81.3 MCH 28.3 MCHC 34.8 RDW 18.6 H Plt Count 428 MPV 7.9 Absolute Neuts (auto) 4.2 Neutrophils % 60.8 D Lymphocytes % 24.9 D Monocytes % 11.6 H D Eosinophils % 1.9 Basophils % 0.8 Nucleated RBC % 0 PT with INR 11.90 INR 1.01 PTT (Actin FS) 22.9 L Sodium Cancelled Potassium Cancelled Chloride Cancelled Carbon Dioxide Cancelled Anion Gap Cancelled BUN Cancelled Creatinine Cancelled Creat Clearance w eGFR Cancelled Random Glucose Cancelled Calcium Cancelled Total Bilirubin Cancelled AST Cancelled ALT Cancelled Alkaline Phosphatase Cancelled Troponin I Cancelled Total Protein Cancelled Albumin Cancelled Urine Color Urine Appearance Urine pH Ur Specific [place] Urine Protein Urine Glucose (UA) Urine Ketones Urine Blood Urine Nitrite Urine Bilirubin Urine Urobilinogen Ur Leukocyte Esterase Opiates Screen Methadone Screen Barbiturate Screen Phencyclidine Screen Ur Amphetamines Screen MDMA (Ecstasy) Screen Benzodiazepines Screen Cocaine Screen U Marijuana (THC) Screen 11/06/18 11/06/18 11/06/18 16:49 16:49 16:49 WBC 6.3 RBC 3.85 Hgb 10.7 Hct 31.2 L MCV 80.8 MCH 27.6 MCHC 34.2 RDW 18.4 H Plt Count 355 MPV 7.1 L D Absolute Neuts (auto) 3.6 Neutrophils % 57.9 Lymphocytes % 25.7 Monocytes % 12.7 H Eosinophils % 1.8 Basophils % 1.9 Nucleated RBC % 0 PT with INR INR PTT (Actin FS) Sodium Potassium Chloride Carbon Dioxide Anion Gap BUN Creatinine Creat Clearance w eGFR Random Glucose Calcium Total Bilirubin AST ALT Alkaline Phosphatase Troponin I Total Protein Albumin Urine Color Ltyellow Urine Appearance Slcloudy Urine pH 6.0 Ur Specific [place] 1.015 Urine Protein Negative Urine Glucose (UA) Negative Urine Ketones Negative Urine Blood Negative Urine Nitrite Negative Urine Bilirubin Negative Urine Urobilinogen Negative Ur Leukocyte Esterase Negative Opiates Screen Negative Methadone Screen Negative Barbiturate Screen Negative Phencyclidine Screen Negative Ur Amphetamines Screen Negative MDMA (Ecstasy) Screen Negative Benzodiazepines Screen Negative Cocaine Screen Negative U Marijuana (THC) Screen Positive A* 11/06/18 16:49 WBC RBC Hgb Hct MCV MCH MCHC RDW Plt Count MPV Absolute Neuts (auto) Neutrophils % Lymphocytes % Monocytes % Eosinophils % Basophils % Nucleated RBC % PT with INR INR PTT (Actin FS) Sodium 134 L Potassium 4.2 Chloride 104 Carbon Dioxide 24 Anion Gap 7 L BUN 10 Creatinine 0.9 Creat Clearance w eGFR > 60 Random Glucose 130 H Calcium 9.3 Total Bilirubin 0.2 AST 12 L ALT 16 Alkaline Phosphatase 52 Troponin I 0.06 H Total Protein 7.6 Albumin 3.8 Urine Color Urine Appearance Urine pH Ur Specific [place] Urine Protein Urine Glucose (UA) Urine Ketones Urine Blood Urine Nitrite Urine Bilirubin Urine Urobilinogen Ur Leukocyte Esterase Opiates Screen Methadone Screen Barbiturate Screen Phencyclidine Screen Ur Amphetamines Screen MDMA (Ecstasy) Screen Benzodiazepines Screen Cocaine Screen U Marijuana (THC) Screen ASSESSMENT/PLAN: 38 year old woman with a history of CAD, CHF, HTN, HLD, gastritis, renal insuff, anxiety, depression, DM, 6 stents, stent thrombosis now was sent in by her equip tech for chest pain now found to ahve NSTEMI NSTEMI cardiac monitoring trend troponin repeat ekg in 6 hours. aspirin 81 daily. Got 325 in er plavix 75 daily got 600 in er heparin drip o2 to keep spo2> 90 nitro past for ongoing chest pain> IF pt become hypotensive please remove nitropaste. lopressor 25 today. cardiology on case got morphine 4 mg in er. atorvastatin 80 mg daily repeat echo DM bgm hold metformin start insulin drip diabetic diet but npo after midnight. HTN: lopressor hold labetalol for now HLD atorvastatin lipid profile Anxiety continue home meds Gastroperesis no active complaint fluid: orally allowed electrolyte: repeat in am nutrition: diabetic diet. Npo after midnight. Might go for cathlab tomorrow dvt pro: heparin drip gi pro: protonix 40 daily dispo: tele Visit type - Emergency Visit Emergency Visit: Yes ED Registration Date: 11/06/18 Care time: The patient presented to the Emergency Department on the above date and was hospitalized for further evaluation of their emergent condition. - New Patient This patient is new to me today: Yes Date on this admission: 11/07/18 - Critical Care Critical Care patient: No
[2018-11-06] MEDS ORDERED: NITROGLYCERIN 2% OINTMENT - 1GM PACKET TD ONE ×2 (18:23→18:53)
[2018-11-06] MEDS ORDERED: ACETAMINOPHEN 325 MG TABLET (FP) PO PRN (18:32)
[2018-11-06] MEDS ORDERED: METOPROLOL TARTRATE 25 MG TABLET (FP) PO ONE (18:33)
[2018-11-06] MEDS ORDERED: METOPROLOL TARTRATE 25 MG TABLET (FP) ONE (18:53)
[2018-11-06] MEDS ORDERED: ATORVASTATIN CA 40 MG TABLET (FP) ONE (18:55)
--- NOTE | 2018-11-06 19:08 | PN ---
Teaching Attending Note Name of Resident: Norm Buchanan ATTENDING PHYSICIAN STATEMENT I saw and evaluated the patient. I reviewed the resident's note and discussed the case with the resident. I agree with the resident's findings and plan as documented with exceptions below. SUBJECTIVE: 38 yof with PMHx of CAD s/p multiple PCI, last NSTEMI in 07/2018 with instent thrombosis, s/p OM PCI at [facility], chronic stable angina on ranexa, HTN, HLD, NIDDM, gastroparesis comes with worsening chest pain over last 4 days. Patient describes as substernal chest pressure, radiating to left arm, with increased frequency over last 3-4 days, that is relieved with rest but with increasing duration/intensity. Describes her symptoms similar to prior PA. Reports compliance with her medications. Was seen by Dr. Ng for her routine visit today, sent to ED Patient reports ongoing chest pressure radiating to left arm, intermittent in the ED. 12 point ROS done, neg except above. Uses marihuana but no other drugs. OBJECTIVE: Vital Signs Period Temp Pulse Resp BP Sys/Hand Pulse Ox Last 24 Hr 98 F 76-84 17-18 114-143/70-87 99-100 Intake & Output 11/03/18 11/04/18 11/05/18 11/06/18 23:59 23:59 23:59 23:59 Weight 170 lb GENERAL: Awake, alert, and fully oriented, in no acute distress. HEAD: Normal with no signs of trauma. EYES: Pupils equal, round and reactive to light, extraocular movements intact, sclera anicteric, conjunctiva clear. No lid lag. EARS, NOSE, THROAT: Ears normal, nares patent, oropharynx clear without exudates. Moist mucous membranes. NECK: soft, supple, no JVD visualized LUNGS: Breath sounds equal, clear to auscultation bilaterally. No wheezes, and no crackles. No accessory muscle use. HEART: Regular rate and rhythm, normal S1 and S2 ABDOMEN: Soft, nontender, not distended, normoactive bowel sounds, no guarding, no rebound, no masses. MUSCULOSKELETAL: Normal range of motion at all joints. No bony deformities or tenderness. No CVA tenderness. UPPER EXTREMITIES: 2+ pulses, warm, well-perfused. No cyanosis. No clubbing. No peripheral edema. LOWER EXTREMITIES: 2+ pulses, warm, well-perfused. No calf tenderness. No peripheral edema. NEUROLOGICAL: Cranial nerves II-XII intact. Normal speech. Normal gait, noticed ambulating in the ED. PSYCHIATRIC: Cooperative. Good eye contact. Appropriate mood and affect. SKIN: Warm, dry, normal turgor, no rashes or lesions noted, normal capillary refill. Home Medications Medication Instructions Recorded Aspirin [Aspirin EC] 81 mg PO DAILY 11/13/15 metFORMIN HCL [Metformin HCl] 500 mg PO BID 08/25/16 Ranolazine [Ranexa -] 500 mg PO BID #60 tab 12/18/17 Labetalol HCl [Normodyne -] 100 mg PO BID #60 tablet 01/05/18 Atorvastatin Calcium [Lipitor] 5 mg PO HS 05/06/18 Gabapentin 300 mg PO HS 05/06/18 Pantoprazole Sodium [Protonix] 40 mg PO DAILY 05/06/18 Quetiapine Fumarate [Seroquel -] 25 mg PO HS 05/06/18 Ticagrelor [Brilinta] 90 mg PO BID 05/06/18 Active Medications Acetaminophen (Tylenol -) 650 mg PO Q6H PRN PRN Reason: PAIN LEVEL 1-5 Aspirin (Ecotrin -) 81 mg PO DAILY [facility] Clopidogrel Bisulfate (Plavix -) 75 mg PO DAILY [facility] Gabapentin (Neurontin -) 300 mg PO HS [facility] Heparin Sodium (Porcine) (Heparin -) 5,000 unit IVPUSH PRN PRN PRN Reason: Heparin Last Admin: 11/06/18 17:03 Dose: 5,000 unit Heparin Sodium (Porcine) (Heparin -) 1,000 unit IVPUSH PRN PRN PRN Reason: Heparin Heparin Sodium (Porcine) (Heparin -) 5,000 unit IVPUSH PRN PRN PRN Reason: Heparin HEPARIN SOD,PORK IN 0.45% NACL (Heparin-1/2ns 25,000 Units/500) 25,000 units in 500 mls @ 20 mls/hr IVPB TITR [facility]; Protocol Last Admin: 11/06/18 17:42 Dose: 1,000 units/hr, 20 mls/hr Sodium Chloride (Normal Saline -) 1,000 mls @ 50 mls/hr IV ASDIR [facility] Stop: 11/07/18 18:52 Insulin Aspart (Novolog Vial Sliding Scale -) 1 vial SQ ACHS [facility]; Protocol Metoprolol Tartrate (Lopressor -) 25 mg PO BID [facility] Pantoprazole Sodium (Protonix -) 40 mg PO DAILY [facility] Quetiapine Fumarate (Seroquel -) 25 mg PO HS [facility] Ranolazine (Ranexa -) 500 mg PO BID [facility] Laboratory Results - last 24 hr 11/06/18 11/06/18 11/06/18 16:30 16:30 16:30 WBC 6.9 RBC 3.71 Hgb 10.5 L Hct 30.2 L MCV 81.3 MCH 28.3 MCHC 34.8 RDW 18.6 H Plt Count 428 MPV 7.9 Absolute Neuts (auto) 4.2 Neutrophils % 60.8 D Lymphocytes % 24.9 D Monocytes % 11.6 H D Eosinophils % 1.9 Basophils % 0.8 Nucleated RBC % 0 PT with INR 11.90 INR 1.01 PTT (Actin FS) 22.9 L Sodium Cancelled Potassium Cancelled Chloride Cancelled Carbon Dioxide Cancelled Anion Gap Cancelled BUN Cancelled Creatinine Cancelled Creat Clearance w eGFR Cancelled Random Glucose Cancelled Calcium Cancelled Total Bilirubin Cancelled AST Cancelled ALT Cancelled Alkaline Phosphatase Cancelled Troponin I Cancelled Total Protein Cancelled Albumin Cancelled Urine Color Urine Appearance Urine pH Ur Specific [place] Urine Protein Urine Glucose (UA) Urine Ketones Urine Blood Urine Nitrite Urine Bilirubin Urine Urobilinogen Ur Leukocyte Esterase Opiates Screen Methadone Screen Barbiturate Screen Phencyclidine Screen Ur Amphetamines Screen MDMA (Ecstasy) Screen Benzodiazepines Screen Cocaine Screen U Marijuana (THC) Screen 11/06/18 11/06/18 11/06/18 16:49 16:49 16:49 WBC 6.3 RBC 3.85 Hgb 10.7 Hct 31.2 L MCV 80.8 MCH 27.6 MCHC 34.2 RDW 18.4 H Plt Count 355 MPV 7.1 L D Absolute Neuts (auto) 3.6 Neutrophils % 57.9 Lymphocytes % 25.7 Monocytes % 12.7 H Eosinophils % 1.8 Basophils % 1.9 Nucleated RBC % 0 PT with INR INR PTT (Actin FS) Sodium Potassium Chloride Carbon Dioxide Anion Gap BUN Creatinine Creat Clearance w eGFR Random Glucose Calcium Total Bilirubin AST ALT Alkaline Phosphatase Troponin I Total Protein Albumin Urine Color Ltyellow Urine Appearance Slcloudy Urine pH 6.0 Ur Specific [place] 1.015 Urine Protein Negative Urine Glucose (UA) Negative Urine Ketones Negative Urine Blood Negative Urine Nitrite Negative Urine Bilirubin Negative Urine Urobilinogen Negative Ur Leukocyte Esterase Negative Opiates Screen Negative Methadone Screen Negative Barbiturate Screen Negative Phencyclidine Screen Negative Ur Amphetamines Screen Negative MDMA (Ecstasy) Screen Negative Benzodiazepines Screen Negative Cocaine Screen Negative U Marijuana (THC) Screen Positive A* 11/06/18 16:49 WBC RBC Hgb Hct MCV MCH MCHC RDW Plt Count MPV Absolute Neuts (auto) Neutrophils % Lymphocytes % Monocytes % Eosinophils % Basophils % Nucleated RBC % PT with INR INR PTT (Actin FS) Sodium 134 L Potassium 4.2 Chloride 104 Carbon Dioxide 24 Anion Gap 7 L BUN 10 Creatinine 0.9 Creat Clearance w eGFR > 60 Random Glucose 130 H Calcium 9.3 Total Bilirubin 0.2 AST 12 L ALT 16 Alkaline Phosphatase 52 Troponin I 0.06 H Total Protein 7.6 Albumin 3.8 Urine Color Urine Appearance Urine pH Ur Specific [place] Urine Protein Urine Glucose (UA) Urine Ketones Urine Blood Urine Nitrite Urine Bilirubin Urine Urobilinogen Ur Leukocyte Esterase Opiates Screen Methadone Screen Barbiturate Screen Phencyclidine Screen Ur Amphetamines Screen MDMA (Ecstasy) Screen Benzodiazepines Screen Cocaine Screen U Marijuana (THC) Screen EKG 1: NSR, T inversions in V4-V6 and I/aVL repeat EKG unchanged Right sided EKG with no ST elevations CXr results reviewed ASSESSMENT AND PLAN: 38 yof with PMHx of CAD s/p multiple PCI, last NSTEMI in 07/2018 with instent thrombosis, s/p OM PCI at [facility], chronic stable angina on ranexa, HTN, HLD, NIDDM, gastroparesis admitted with ACute NSTEMI -NSTEMI -CAD s/p multiple PCI, last in 07/2018, with instent thrombosis -NIDDM -HTN -Gastroparesis -Cannabis use Plan: Cardiology input noted. Discussed with Dr. Ng. ASA, plavix loading, heparin drip. Nitropaste. Monitor closely. Cycle troponins. Metoprolol 25 mg IV x1, start PO lopressor. Continue lipitor, ranexa. COntinue seroquel/gabapentin. Hold metformin, ISS, Diabetic/cardiac diet. NPO after midnight. DIpso admit to inaptient telemetry. Plan for transfer for cardiac cath in 24 hours as discussed with cardiology and ED Plan discussed with patient, all questions answered. Total admit time 65 min.
[2018-11-06] MEDS ORDERED: ACETAMINOPHEN 325 MG TABLET (FP) ONE (21:08)
[2018-11-06 21:34] LABS: PHOSPHOROUS 3.2 mg/dL (2.5-4.9)
[2018-11-06] MEDS ORDERED: GABAPENTIN 100 MG CAPSULE (FP) PO SCH (22:00)
[2018-11-06] MEDS ORDERED: QUEtiapine FUMARATE 25 MG TABLET (FP) PO SCH (22:00)
[2018-11-07] MEDS ORDERED: SODIUM CHLORIDE 1,000 ML IV SCH (00:05)
[2018-11-07] MEDS: INSULIN SLIDING SCALE (NOVOLOG) 1 VIAL SQ SCH ×3 (00:24→10:45)
[2018-11-07] MEDS: RANOLAZINE E.R. 500 MG TABLET (FP) PO SCH ×2 (00:24→09:15)
[2018-11-07] MEDS ORDERED: MORPHINE SULFATE 2 MG/ML VIAL IVPUSH ONE (01:45)
[2018-11-07 06:34] VITALS: BMI 24.4
[2018-11-07 07:21] LABS: BASO % 0.4 % (0-2.0); EOS % 1.6 % (0-4.5); HEMATOCRIT 28.5 % (32.4-45.2); HEMOGLOBIN 9.6 GM/dL (10.7-15.3); LYMPH % 44.1 % (8-40); MCH 27.1 pg (25.7-33.7); MCHC 33.8 g/dl (32.0-36.0); MEAN CELL VOLUME 80.2 fl (80-96); MEAN PLT VOLUME 6.9 fl (7.5-11.1); MONO % 11.1 % (3.8-10.2); NEUT % 42.8 % (42.8-82.8); PLATELET COUNT 347 K/MM3 (134-434); RBC 3.55 M/mm3 (3.60-5.2); RDW 18.5 % (11.6-15.6); WHITE BLOOD COUNT 5.4 K/mm3 (4.0-10.0)
[2018-11-07 08:28] VITALS: BP 105/59; PULSE 66; TEMP 99.4
--- NOTE | 2018-11-07 08:32 | PN ---
Progress Note, Physician Chief Complaint: seen and examined + TnI noted, recurrent NSTEMI Having ongoing CP. TELE: NSR - Current Medication List Current Medications: Active Medications Acetaminophen (Tylenol -) 650 mg PO Q6H PRN PRN Reason: PAIN LEVEL 1-5 Aspirin (Ecotrin -) 81 mg PO DAILY [facility] Clopidogrel Bisulfate (Plavix -) 75 mg PO DAILY [facility] Gabapentin (Neurontin -) 300 mg PO HS [facility] Last Admin: 11/07/18 00:24 Dose: 300 mg Heparin Sodium (Porcine) (Heparin -) 5,000 unit IVPUSH PRN PRN PRN Reason: Heparin Last Admin: 11/06/18 17:03 Dose: 5,000 unit Heparin Sodium (Porcine) (Heparin -) 1,000 unit IVPUSH PRN PRN PRN Reason: Heparin Heparin Sodium (Porcine) (Heparin -) 5,000 unit IVPUSH PRN PRN PRN Reason: Heparin HEPARIN SOD,PORK IN 0.45% NACL (Heparin-1/2ns 25,000 Units/500) 25,000 units in 500 mls @ 20 mls/hr IVPB TITR [facility]; Protocol Last Admin: 11/06/18 17:42 Dose: 1,000 units/hr, 20 mls/hr Sodium Chloride (Normal Saline -) 1,000 mls @ 50 mls/hr IV ASDIR [facility] Stop: 11/07/18 18:52 Last Admin: 11/07/18 02:00 Dose: 50 mls/hr Insulin Aspart (Novolog Vial Sliding Scale -) 1 vial SQ ACHS [facility]; Protocol Last Admin: 11/07/18 06:19 Dose: Not Given Metoprolol Tartrate (Lopressor -) 25 mg PO BID [facility] Pantoprazole Sodium (Protonix -) 40 mg PO DAILY [facility] Quetiapine Fumarate (Seroquel -) 25 mg PO HS [facility] Last Admin: 11/07/18 00:25 Dose: 25 mg Ranolazine (Ranexa -) 500 mg PO BID [facility] Last Admin: 11/07/18 00:24 Dose: 500 mg - Objective Vital Signs: Vital Signs Temperature 99.4 F 11/07/18 08:18 Pulse Rate 66 11/07/18 08:18 Respiratory Rate 15 11/07/18 08:18 Blood Pressure 105/59 L 11/07/18 08:18 O2 Sat by Pulse Oximetry (%) 100 11/07/18 08:18 Constitutional: Yes: No Distress Eyes: Yes: Conjunctiva Clear Neck: Yes: Supple, Trachea Midline Cardiovascular: Yes: Regular Rate and Rhythm (no murmurs, rubs, gall) Respiratory: Yes: CTA Bilaterally (no wheezing rales or rhonchi) Gastrointestinal: Yes: Soft (NT) Edema: No Neurological: Yes: Alert, Oriented ...Motor Strength: WNL Psychiatric: Yes: WNL Labs: CBC, BMP 11/07/18 06:17 11/06/18 16:49 INR, PTT INR 1.01 (0.83-1.09) 11/06/18 16:30 Laboratory Tests 11/06/18 11/07/18 11/07/18 20:45 00:35 06:17 Creatine Kinase 125 Troponin I 0.06 H 0.09 H 0.07 H - ....Imaging EKG: Image Reviewed (TELE: NSR) Problem List - Problems (1) NSTEMI (non-ST elevated myocardial infarction) Code(s): I21.4 - NON-ST ELEVATION (NSTEMI) MYOCARDIAL INFARCTION (2) ACS (acute coronary syndrome) Code(s): I24.9 - ACUTE ISCHEMIC HEART DISEASE, UNSPECIFIED (3) Diabetes mellitus Code(s): E11.9 - TYPE 2 DIABETES MELLITUS WITHOUT COMPLICATIONS Qualifiers: Diabetes mellitus type: type 2 Diabetes mellitus complication status: with circulatory complication (4) Elevated troponin Code(s): R79.89 - OTHER SPECIFIED ABNORMAL FINDINGS OF BLOOD CHEMISTRY (5) HLD (hyperlipidemia) Code(s): E78.5 - HYPERLIPIDEMIA, UNSPECIFIED (6) HTN (hypertension) Code(s): I10 - ESSENTIAL (PRIMARY) HYPERTENSION Qualifiers: Hypertension type: essential hypertension Assessment/Plan IMP: 38F well known to me with DM and extensive CAD s/p mulitple NSTEMIs, PCI most recently in 07/2018 of OM c/b stent thrombosis requiring repeat intervention one week later now presenting with recurrent and escalating anginal sx over the last week with T wave changes and + low level troponin c/w recurrent NSTEMI. REC: 1. Cont UFH gtts for PTT 50-70 2. Plavix loaded last night, cont ASA /Plavix/ Metoprolol. Add high intensity statin for ACS/NSTEMI 3. Difficult clinical scenario in young patient w/ DM and aggressive CAD w/ recurrent events- compliance with DAPT may be an issue either to non-adherence or perhaps due to chronic vomiting limiting absorption. In light of ongoing symptoms, will transfer for repeat [facility] to define anatomy. Decision on revasc vs continued medical Rx pending coronary anatomy. Case d/w Dr. Ramos. Transferring to [facility].
[2018-11-07] MEDS ORDERED: MORPHINE SULFATE 2 MG/ML VIAL IVPUSH PRN (08:50)
[2018-11-07] MEDS ORDERED: morphine SULFATE 4 MG/ML VIAL ONE (09:02)
--- NOTE | 2018-11-07 09:52 | DS ---
Physical Exam: SUBJECTIVE: Patient seen and examined OBJECTIVE: Vital Signs Period Temp Pulse Resp BP Sys/Hand Pulse Ox Last 24 Hr 98 F-99.4 F 66-84 15-20 105-143/59-87 99-100 PHYSICAL EXAM GENERAL: Awake, alert, and fully oriented, in no acute distress. HEAD: Normal with no signs of trauma. EYES: Pupils equal, round and reactive to light, extraocular movements intact, EARS, NOSE, THROAT: Moist mucous membranes. NECK: Normal range of motion, supple without lymphadenopathy, JVD, or masses. LUNGS: Breath sounds equal, clear to auscultation bilaterally. No wheezes, and no crackles. No accessory muscle use. HEART: Regular rate and rhythm, normal S1 and S2 without murmur ABDOMEN: Soft, nontender, not distended, normoactive bowel sounds, no guarding, no rebound, no masses. MUSCULOSKELETAL: Normal range of motion at all joints. No bony deformities or tenderness. No CVA tenderness. UPPER EXTREMITIES: 2+ pulses, warm, well-perfused. No cyanosis. No clubbing. No peripheral edema. LOWER EXTREMITIES: warm, well-perfused. No calf tenderness. No peripheral edema. NEUROLOGICAL: Cranial nerves II-XII intact. Normal speech. Normal gait. pt seen walking in er PSYCHIATRIC: Cooperative. Good eye contact. SKIN: Warm, dry, LABS Laboratory Results - last 24 hr 11/06/18 11/06/18 11/06/18 16:30 16:30 16:30 WBC 6.9 RBC 3.71 Hgb 10.5 L Hct 30.2 L MCV 81.3 MCH 28.3 MCHC 34.8 RDW 18.6 H Plt Count 428 MPV 7.9 Absolute Neuts (auto) 4.2 Neutrophils % 60.8 D Lymphocytes % 24.9 D Monocytes % 11.6 H D Eosinophils % 1.9 Basophils % 0.8 Nucleated RBC % 0 PT with INR 11.90 INR 1.01 PTT (Actin FS) 22.9 L Sodium Cancelled Potassium Cancelled Chloride Cancelled Carbon Dioxide Cancelled Anion Gap Cancelled BUN Cancelled Creatinine Cancelled Creat Clearance w eGFR Cancelled POC Glucometer Random Glucose Cancelled Calcium Cancelled Phosphorus Magnesium Total Bilirubin Cancelled AST Cancelled ALT Cancelled Alkaline Phosphatase Cancelled Creatine Kinase Troponin I Cancelled Total Protein Cancelled Albumin Cancelled Triglycerides Cholesterol Total LDL Cholesterol HDL Cholesterol Urine Color Urine Appearance Urine pH Ur Specific [place] Urine Protein Urine Glucose (UA) Urine Ketones Urine Blood Urine Nitrite Urine Bilirubin Urine Urobilinogen Ur Leukocyte Esterase Opiates Screen Methadone Screen Barbiturate Screen Phencyclidine Screen Ur Amphetamines Screen MDMA (Ecstasy) Screen Benzodiazepines Screen Cocaine Screen U Marijuana (THC) Screen 11/06/18 11/06/18 11/06/18 16:49 16:49 16:49 WBC 6.3 RBC 3.85 Hgb 10.7 Hct 31.2 L MCV 80.8 MCH 27.6 MCHC 34.2 RDW 18.4 H Plt Count 355 MPV 7.1 L D Absolute Neuts (auto) 3.6 Neutrophils % 57.9 Lymphocytes % 25.7 Monocytes % 12.7 H Eosinophils % 1.8 Basophils % 1.9 Nucleated RBC % 0 PT with INR INR PTT (Actin FS) Sodium Potassium Chloride Carbon Dioxide Anion Gap BUN Creatinine Creat Clearance w eGFR POC Glucometer Random Glucose Calcium Phosphorus Magnesium Total Bilirubin AST ALT Alkaline Phosphatase Creatine Kinase Troponin I Total Protein Albumin Triglycerides Cholesterol Total LDL Cholesterol HDL Cholesterol Urine Color Ltyellow Urine Appearance Slcloudy Urine pH 6.0 Ur Specific [place] 1.015 Urine Protein Negative Urine Glucose (UA) Negative Urine Ketones Negative Urine Blood Negative Urine Nitrite Negative Urine Bilirubin Negative Urine Urobilinogen Negative Ur Leukocyte Esterase Negative Opiates Screen Negative Methadone Screen Negative Barbiturate Screen Negative Phencyclidine Screen Negative Ur Amphetamines Screen Negative MDMA (Ecstasy) Screen Negative Benzodiazepines Screen Negative Cocaine Screen Negative U Marijuana (THC) Screen Positive A* 11/06/18 11/06/18 11/06/18 16:49 20:45 20:45 WBC RBC Hgb Hct MCV MCH MCHC RDW Plt Count MPV Absolute Neuts (auto) Neutrophils % Lymphocytes % Monocytes % Eosinophils % Basophils % Nucleated RBC % PT with INR INR PTT (Actin FS) Sodium 134 L Potassium 4.2 Chloride 104 Carbon Dioxide 24 Anion Gap 7 L BUN 10 Creatinine 0.9 Creat Clearance w eGFR > 60 POC Glucometer Random Glucose 130 H Calcium 9.3 Phosphorus 3.2 Cancelled Magnesium 2.0 Cancelled Total Bilirubin 0.2 AST 12 L ALT 16 Alkaline Phosphatase 52 Creatine Kinase Troponin I 0.06 H 0.06 H Total Protein 7.6 Albumin 3.8 Triglycerides 79 Cancelled Cholesterol 161 Cancelled Total LDL Cholesterol 103 H Cancelled HDL Cholesterol 48 Cancelled Urine Color Urine Appearance Urine pH Ur Specific [place] Urine Protein Urine Glucose (UA) Urine Ketones Urine Blood Urine Nitrite Urine Bilirubin Urine Urobilinogen Ur Leukocyte Esterase Opiates Screen Methadone Screen Barbiturate Screen Phencyclidine Screen Ur Amphetamines Screen MDMA (Ecstasy) Screen Benzodiazepines Screen Cocaine Screen U Marijuana (THC) Screen 11/07/18 11/07/18 11/07/18 00:13 00:35 00:35 WBC RBC Hgb Hct MCV MCH MCHC RDW Plt Count MPV Absolute Neuts (auto) Neutrophils % Lymphocytes % Monocytes % Eosinophils % Basophils % Nucleated RBC % PT with INR INR PTT (Actin FS) 73.0 H Sodium Potassium Chloride Carbon Dioxide Anion Gap BUN Creatinine Creat Clearance w eGFR POC Glucometer 132 Random Glucose Calcium Phosphorus Magnesium Total Bilirubin AST ALT Alkaline Phosphatase Creatine Kinase Troponin I 0.09 H Total Protein Albumin Triglycerides Cholesterol Total LDL Cholesterol HDL Cholesterol Urine Color Urine Appearance Urine pH Ur Specific [place] Urine Protein Urine Glucose (UA) Urine Ketones Urine Blood Urine Nitrite Urine Bilirubin Urine Urobilinogen Ur Leukocyte Esterase Opiates Screen Methadone Screen Barbiturate Screen Phencyclidine Screen Ur Amphetamines Screen MDMA (Ecstasy) Screen Benzodiazepines Screen Cocaine Screen U Marijuana (THC) Screen 11/07/18 11/07/18 11/07/18 06:13 06:17 06:17 WBC 5.4 RBC 3.55 L Hgb 9.6 L Hct 28.5 L MCV 80.2 MCH 27.1 MCHC 33.8 RDW 18.5 H Plt Count 347 MPV 6.9 L Absolute Neuts (auto) 2.3 Neutrophils % 42.8 D Lymphocytes % 44.1 H D Monocytes % 11.1 H Eosinophils % 1.6 Basophils % 0.4 Nucleated RBC % 0 PT with INR INR PTT (Actin FS) Sodium Potassium Chloride Carbon Dioxide Anion Gap BUN Creatinine Creat Clearance w eGFR POC Glucometer 145 Random Glucose Calcium Phosphorus Magnesium Total Bilirubin AST ALT Alkaline Phosphatase Creatine Kinase 125 Troponin I 0.07 H Total Protein Albumin Triglycerides Cholesterol Total LDL Cholesterol HDL Cholesterol Urine Color Urine Appearance Urine pH Ur Specific [place] Urine Protein Urine Glucose (UA) Urine Ketones Urine Blood Urine Nitrite Urine Bilirubin Urine Urobilinogen Ur Leukocyte Esterase Opiates Screen Methadone Screen Barbiturate Screen Phencyclidine Screen Ur Amphetamines Screen MDMA (Ecstasy) Screen Benzodiazepines Screen Cocaine Screen U Marijuana (THC) Screen 11/07/18 06:17 WBC RBC Hgb Hct MCV MCH MCHC RDW Plt Count MPV Absolute Neuts (auto) Neutrophils % Lymphocytes % Monocytes % Eosinophils % Basophils % Nucleated RBC % PT with INR INR PTT (Actin FS) 84.9 H Sodium Potassium Chloride Carbon Dioxide Anion Gap BUN Creatinine Creat Clearance w eGFR POC Glucometer Random Glucose Calcium Phosphorus Magnesium Total Bilirubin AST ALT Alkaline Phosphatase Creatine Kinase Troponin I Total Protein Albumin Triglycerides Cholesterol Total LDL Cholesterol HDL Cholesterol Urine Color Urine Appearance Urine pH Ur Specific [place] Urine Protein Urine Glucose (UA) Urine Ketones Urine Blood Urine Nitrite Urine Bilirubin Urine Urobilinogen Ur Leukocyte Esterase Opiates Screen Methadone Screen Barbiturate Screen Phencyclidine Screen Ur Amphetamines Screen MDMA (Ecstasy) Screen Benzodiazepines Screen Cocaine Screen U Marijuana (THC) Screen Laboratory Tests 11/06/18 11/06/18 11/07/18 16:49 20:45 00:35 Troponin I 0.06 H 0.06 H 0.09 H 11/07/18 06:17 Troponin I 0.07 H HOSPITAL COURSE: 38 year old woman with a history of CAD, HTN, HLD, gastritis, renal insuff, anxiety, depression, DM, 6 stents, stent thrombosis multiple PCI now was sent in by her lactation coordinator for chest pain. pt states that she has has ongoing chest pain from months but from last 2 week pain frequency has increased and from last 4 days. pain is radiating to her left arm and is of same kind when she has NC and stent occlusion. Pain is pressure type, increases with minimum activity. Denies trouble breathing, palpitations, lightheadedness, dizzines, swelling in legs. In ER pt had ekg which shows T wave invesrions in lateral lead, trop 0.06. Pt got morphine, aspirin an plavix loading dose. pt is started on heparin drip in er. Tropoin trend mentioned above. Cardiology Dr garcia was consulted and pt is transfered to [facility] for further management an possible cath You have transferred to [facility] for further management. Dr Garcia has discussed the case with dr pace. We have stopped yorr brilinta 90 mg bid as you are on aspirin, palvix and heparin drip. We increased your atorvastatin from 10mg to 80 mag daily we hve stopped your metformin 500mg bid for now as you might go for cytology laboratory manager we have started you on metoprolol 25 bid in hospital instaed your home med labetalol 100bid. Date of Admission:11/06/18 Date of Discharge: 11/07/18 Discharge Summary Reason For Visit: NSTEMI Current Active Problems NSTEMI (non-ST elevated myocardial infarction) (Acute) Condition: Fair - Instructions Diet, Activity, Other Instructions: You have transferred to [facility] for further management. Dr Garcia has discussed the case with dr pace. We have stopped yorr brilinta 90 mg bid as you are on aspirin, palvix and heparin drip. We increased your atorvastatin from 10mg to 80 mag daily we hve stopped your metformin 500mg bid for now as you might go for cytology laboratory manager we have started you on metoprolol 25 bid in hospital instaed your home med labetalol 100bid. Referrals: Juan Manuel Ng MD [Staff Physician] - Ashleigh Valencia MD [Primary Care Provider] - Disposition: TRANSFER ACUTE CARE/OTHER HOSP - Home Medications Comprehensive Discharge Medication List: Ambulatory Orders Aspirin [Aspirin EC] 81 mg PO DAILY 11/13/15 Ranolazine [Ranexa -] 500 mg PO BID #60 tab 12/18/17 Gabapentin 300 mg PO HS 05/06/18 Pantoprazole Sodium [Protonix] 40 mg PO DAILY 05/06/18 Quetiapine Fumarate [Seroquel -] 25 mg PO HS 05/06/18 Acetaminophen [Tylenol .Regular Strength -] 650 mg PO Q6H PRN tablet 11/07/18 Atorvastatin Ca [Lipitor] 80 mg PO HS tablet 11/07/18 Clopidogrel Bisulfate [Plavix -] 75 mg PO DAILY tablet 11/07/18 Heparin - 1,000 unit IVPUSH PRN PRN vial 11/07/18 Heparin - 5,000 unit IVPUSH PRN PRN vial 11/07/18 Heparin - 5,000 unit IVPUSH PRN PRN vial 11/07/18 Insulin Sliding Scale [Novolog Vial Sliding Scale -] 1 vial SQ ACHS units 11/07 Metoprolol Tartrate [Lopressor -] 25 mg PO BID tablet 11/07/18
[2018-11-07] MEDS ORDERED: METOPROLOL TARTRATE 25 MG TABLET (FP) PO SCH (10:00)
[2018-11-07] MEDS ORDERED: ASPIRIN COATED 81 MG TABLET.EC PO SCH (10:00)
[2018-11-07] MEDS ORDERED: PANTOPRAZOLE 40 MG TABLET (FP) PO SCH (10:00)
[2018-11-07] MEDS ORDERED: CLOPIDOGREL BISULFATE 75 MG TABLET (FP) PO SCH (10:00)
[2018-11-07 14:00] LABS: ANISOCYTOSIS 1+; MACROCYTOSIS 1+; OVALOCYTE 1+; PLATELET ESTIMATE NORMAL; TARGET CELLS 1+; TEAR DROP CELLS 1+
--- NOTE | 2018-11-07 15:23 | PN ---
Teaching Attending Note Name of Resident: Norm Buchanan ATTENDING PHYSICIAN STATEMENT I saw and evaluated the patient. I reviewed the resident's note and discussed the case with the resident. I agree with the resident's findings and plan as documented. SUBJECTIVE: Ms Berry complains of chest pain. No sob or n/v. OBJECTIVE: Last Vital Signs Temp Pulse Resp BP Pulse Ox 37.4 C 66 15 105/59 L 100 11/07/18 08:18 11/07/18 08:18 11/07/18 08:18 11/07/18 08:18 11/07/18 09:34 Gen: nad Pulm: ctab w/o w/r/r CV: rrr w/o m/r/g Abd: +bs, s/nt/nd Ext: no c/c/e CBC, BMP 11/07/18 06:17 11/06/18 16:49 ASSESSMENT AND PLAN: -case d/w Dr Ng -transfer to [facility] for cardiac catheterization
[2018-11-07] MEDS ORDERED: ATORVASTATIN CA 80 MG TABLET (FP) PO SCH (22:00)
--- NOTE | 2018-11-08 02:38 | EKG ---
Test Reason : Blood Pressure : / mmHG Vent. Rate : 061 BPM Atrial Rate : 061 BPM P-R Int : 158 ms QRS Dur : 082 ms QT Int : 400 ms P-R-T Axes : 016 023 108 degrees QTc Int : 402 ms NORMAL SINUS RHYTHM POSSIBLE ANTEROLATERAL INFARCT , AGE UNDETERMINED ABNORMAL ECG WHEN COMPARED WITH ECG OF 06-NOV-2018 15:46, BORDERLINE CRITERIA FOR ANTEROLATERAL INFARCT ARE NOW PRESENT T WAVE INVERSION LESS EVIDENT IN LATERAL LEADS Confirmed by DIMITRI MANRIQUEZ MD ([id number]) on 11/08/2018 2:37:55 AM Referred By: Confirmed By:DIMITRI MANRIQUEZ MD
--- NOTE | 2018-11-08 11:58 | EKG ---
Test Reason : Blood Pressure : / mmHG Vent. Rate : 055 BPM Atrial Rate : 055 BPM P-R Int : 158 ms QRS Dur : 082 ms QT Int : 402 ms P-R-T Axes : 051 026 109 degrees QTc Int : 384 ms SINUS BRADYCARDIA POSSIBLE LEFT ATRIAL ENLARGEMENT T WAVE ABNORMALITY, CONSIDER LATERAL ISCHEMIA ABNORMAL ECG WHEN COMPARED WITH ECG OF 10-AUG-2018 08:23, ST NO LONGER DEPRESSED IN ANTEROLATERAL LEADS T WAVE INVERSION MORE EVIDENT IN LATERAL LEADS QT HAS SHORTENED Confirmed by YONY STORM, DANI ([id number]) on 11/08/2018 11:58:11 AM Referred By: Confirmed By:DANI BHAKTA MD
== END 2018-11-07 11:03 | disposition short-term general hospital (02) | DRG 282 ==
LOC: JER 15:40 → JERBED 18:20 → J4W 11-07 01:34
PROVIDERS: ADMIT Hospitalist; ATTEND Hospitalist
DX: I21.4 Non-ST elevation (NSTEMI) myocardial infarction (principal); I11.0 Hypertensive heart disease with heart failure; I50.9 Heart failure, unspecified; E11.9 Type 2 diabetes mellitus without complications; I25.10 Atherosclerotic heart disease of native coronary artery without angina pectoris; Z79.84 Long term (current) use of oral hypoglycemic drugs; Z85.41 Personal history of malignant neoplasm of cervix uteri; E78.00 Pure hypercholesterolemia, unspecified; F41.9 Anxiety disorder, unspecified; Z87.891 Personal history of nicotine dependence; F12.10 Cannabis abuse, uncomplicated; I25.2 Old myocardial infarction; Z95.5 Presence of coronary angioplasty implant and graft
CPT/HCPCS: 36415; 71045-TC-FY; 80053; 80061; 80307; 81003; 82550; 82962; 83721; 83735; 84100; 84484; 85025; 85027; 85610; 85730; 93005; 93010; 99285-25; J1644; J7030

== ENCOUNTER 2019-03-01 02:13 | Inpatient (IN) | payer OTHER ==
--- NOTE | 2019-03-01 02:17 | PDOC ---
History of Present Illness - General Stated Complaint: CHEST PAIN Time Seen by Provider: 03/01/19 02:16 History Source: Patient Exam Limitations: No Limitations - History of Present Illness Initial Comments: Pt is a 38 yo F, with PMH of CAD (6 stents, triple bypass), CHF, HTN, HLD, gastritis, DM, CKD, pneumomediastinum, anxiety, depression, and polysubstance use (THC, ecstasy), who is presenting with substernal chest pain which radiates up towards her throat x2 hours. Pt states she has had intermittent chest pain over the week, but this evening was worse in severity. Pt states she was sitting and relaxing when the pain started. The pain is constant and sharp, but is not associated with n/v/diaphoresis. Pt endorses recent URI with nasal congestion and cough productive of clear sputum, and coughing also makes the pain worse. There are no other exacerbating or alleviating symptoms. Pt denies any fevers/chills, headache, vision changes, syncope, palpitations, SOB, nausea/ vomiting, abdominal pain, urinary symptoms, diarrhea/constipation, or leg swelling. Pt states she has been compliant with her medications and denies recent drug use. Pt had recent stent removal and triple bypass conducted at [facility] (2018 -- Dr. Ramos and Dr. Fontaine) Allergies: NKDA PCP: Erik Cards: Berenice Social: Pt denies any recent cigarette, alcohol, or drug use. See as above. Pt denies any recent travel or sick contacts. Surgical: triple bypass, cardiac stents. Family: no relevant history. 03/01/19 06:24 Past History - Travel Traveled outside of the country in the last 30 days: No Close contact w/someone who was outside of country & ill: No - Past Medical History Allergies/Adverse Reactions: Allergies Allergy/AdvReac Type Severity Reaction Status Date / Time cephalexin monohydrate Allergy Severe Hives Verified 03/01/19 03:36 [From Misohoni] Home Medications: Ambulatory Orders Aspirin [Aspirin EC] 81 mg PO DAILY 11/13/15 Gabapentin 300 mg PO HS 05/06/18 Pantoprazole Sodium [Protonix] 40 mg PO DAILY 05/06/18 Quetiapine Fumarate [Seroquel -] 25 mg PO HS 05/06/18 Atorvastatin Ca [Lipitor] 80 mg PO HS tablet 11/07/18 Clopidogrel Bisulfate [Plavix -] 75 mg PO DAILY tablet 11/07/18 Labetalol HCl [Normodyne -] 200 mg PO BID 03/01/19 Metoclopramide HCl [Reglan] 5 mg PO DAILY 03/01/19 metFORMIN HCL [Metformin ER Gastric] 1,000 mg PO BID 03/01/19 Anemia: No Asthma: No Cancer: Yes (cervical ca) Cardiac Disorders: Yes (CHF) CVA: No COPD: No CHF: Yes DVT: No Dementia: No Diabetes: Yes GI Disorders: Yes (GASTROPARESIS) Disorders: No HTN: Yes Hypercholesterolemia: Yes Liver Disease: No Psychiatric Problems: Yes (anxiety) Seizures: No Thyroid Disease: No - Surgical History Abdominal Surgery: No Appendectomy: No Cardiac Surgery: Yes (5 stents//last on 08/03/18) Cholecystectomy: No Lung Surgery: No Neurologic Surgery: No Orthopedic Surgery: Yes (right ROTATOR CUFF REPAIR) - Reproductive History (#): 5 Para: 0 Cervical CA: Yes Dysfunctional Uterine Bleeding: Yes Ectopic : Yes Endometrial CA: Yes Therapeutic (s) & number: Yes (1) Spontaneous : 4 - Immunization History Immunization Up to Date: Yes - Suicide/Smoking/Psychosocial Hx Smoking Status: Yes (QUIT 3 MONTHS AGO) Smoking History: Former smoker Have you smoked in the past 12 months: No Number of Cigarettes Smoked Daily: 5 If you are a former smoker, when did you quit?: 12/20/17 'Breaking Loose' booklet given: 01/03/18 Hx Alcohol Use: No Drug/Substance Use Hx: Yes (MARIJUANA) Substance Use Type: None Hx Substance Use Treatment: No Review of Systems - Review of Systems Able to Perform ROS?: Yes Is the patient limited Slovak proficient: No Constitutional: Yes: Weight Stable. No: Chills, Diaphoresis, Fever, Loss of Appetite, Malaise, Weakness HEENTM: No: Blurred Vision, Double Vision, Nose Congestion, Throat Pain, Difficulty Swallowing Respiratory: Yes: Cough, Productive cough. No: Orthopnea, Shortness of Breath, Hemoptysis Cardiac (ROS): Yes: Chest Pain. No: Edema, Irregular Heart Rate, Lightheadedness, Palpitations, Syncope, Chest Tightness ABD/GI: No: Constipated, Diarrhea, Nausea, Poor Appetite, Poor Fluid Intake, Vomiting, Indigestion, Abdominal cramping : No: Burning, Dysuria, Pain, Urgency Musculoskeletal: No: Back Pain, Joint Pain, Muscle Pain Integumentary: No: Rash Neurological: No: Headache, Numbness, Paresthesia, Weakness, Unsteady Gait, Dizziness Psychiatric: No: Sleep Pattern Change, Change in Appetite Endocrine: No: Increased Urine, Change in Weight Hematologic/Lymphatic: Yes: Blood Clots (cardiac stents, occlusion). No: Anemia , Easy Bleeding, Easy Bruising All Other Systems: Reviewed and Negative *Physical Exam - Physical Exam Comments: Vitals stable, pt afebrile. Pt appears uncomfortable, but no vomiting or diaphoresis. Normal body habitus. Pt alert and oriented x3. 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 No midline spinal tenderness, step-offs, or crepitus. Head normocephalic, atraumatic. Eyes PERRLA, EOMI. Oropharynx without erythema or exudates, no LAD b/l. No nasal congestion, hearing intact. Clear heart sounds, S1/S2, no JVD, b/l pedal edema, or heart murmur. Clear lung sounds, no respiratory distress, wheezes, crackles, or accessory muscle use. No abdominal or CVA tenderness to palpation, no rebound, no guarding. Abdomen soft, non-distended, and with normoactive bowel sounds. Skin without jaundice or rash. 03/01/19 02:17 03/01/19 06:26 ED Treatment Course - LABORATORY CBC & Chemistry Diagram: 03/01/19 02:40 03/01/19 04:04 Medical Decision Making - Medical Decision Making Pt was seen at bedside, also will be seen by attending Dr. Yoo. Pt presenting with substernal chest pain which radiates up towards her throat x2 hours. Pt states she has had intermittent chest pain over the week, but this evening was worse in severity. Pt states she was sitting and relaxing when the pain started. The pain is constant and sharp, but is not associated with n/v/ diaphoresis. Pt endorses recent URI with nasal congestion and cough productive of clear sputum, and coughing also makes the pain worse. There are no other exacerbating or alleviating symptoms. Pt denies any fevers/chills, headache, vision changes, syncope, palpitations, SOB, nausea/vomiting, abdominal pain, urinary symptoms, diarrhea/constipation, or leg swelling. Pt states she has been compliant with her medications and denies recent drug use. Pt had recent stent removal and triple bypass conducted at [facility] (2018 -- Dr. Ramos and Dr. Fontaine) Considering repeat occlusion/ACS vs vascular (dissection) vs infectious (URI, pneumonia, pneumomediastinum) vs acid reflux/GERD Ordered work-up including CBC, CMP, BNP, troponin, chest x-ray, ECG. Provided 0.4 mg SL NG and 325 mg PO aspirin. Pt refusing tylenol as "it doesn't help". Will continue to reassess pt and monitor for symptomatic improvement. ECG: NSR, intervals WNL (HR 90, NH 174, QRS 96, QTc 469). TWIs in V4-V6, which were present on prior ECG of 10/2018. T waves upright in V1-V3, with poor R wave progression. No significant ST segment depressions or elevations. 03/01/19 02:17 Provided 1 inch NG paste, BP dropped to 103/80 -- took off NG paste, pain still not well-controlled. Provided 4 mg IV morphine. Hemolyzed chemistry specimen. Sending repeat CMP, BNP, troponin. LMP last week, pt will be shielded for chest x-ray. Want to eval for widened mediastinum, infiltrates. 03/01/19 03:59 03/01/19 04:17 Chest x-ray shows potential widening of mediastinum. Prior CT done 05/2018, showed ascending aorta 3.1 cm. Ordered CTA study. CBC: WBC 11.5 -- pt afebrile, could be inflammatory vs infectious CMP: glucose 273 Troponin 1.58, BNP 1664 Pt continues to complain of pain, providing additional 4 mg IV morphine (8 mg total). Repeat ECG shows no further changes. Called [facility] -- Dr. Ramos stated due to no STEMI criteria, we would need to speak to [facility] Cardiology (Dr. Ng) to discuss transfer , and they were not accepting the pt at this time. 03/01/19 05:[address] Ng, agrees with plan for CTA and heparin. Will trend cardiac enzymes and admit pt to telemetry, pending CTA results. 03/01/19 05:30 Pt taken for CTA, pending read. Pt had 1 episode NBNB vomiting, providing 20 mg IV pepcid, 1 g ofirmev, and 4 mg IV zofran. Pt already received 8 mg IV morphine. 03/01/19 06:10 CTA negative for PE and aneurysm or dissection. Coarse pulmonary interstitial pattern. Paging hospitalist team for admission. 03/01/19 06:28 Pt signed out to Dr. Gar. Pending admission. Pain well-controlled with ofirmev. 03/01/19 07:34 *DC/Admit/Observation/Transfer Diagnosis at time of Disposition: NSTEMI (non-ST elevated myocardial infarction), Elevated troponin Chest pain Qualifiers: Chest pain type: unspecified Qualified Code(s): R07.9 - Chest pain, unspecified - Discharge Dispostion Condition at time of disposition: Stable Decision to Admit order: Yes - Referrals Referrals: Ashleigh Valencia MD [Primary Care Provider] - - Patient Instructions - Post Discharge Activity
--- NOTE | 2019-03-01 02:57 | PDOC ---
Attending Attestation - Resident Resident Name: Fabiana Teixeiraana - ED Attending Attestation I have performed the following: I have examined & evaluated the patient, The case was reviewed & discussed with the resident, I agree w/resident's findings & plan, Exceptions are as noted - HPI HPI: 03/01/19 06:08 38F PMH DM, HTN, HLD, CAD s/p multiple stents c/b stent thrombosis, recent admission for NSTEMI here with 2 hours of intense chest pain. Similar in location and nature as prior episodes of occlusion but more intense. - Physicial Exam PE: 03/01/19 06:10 Agree with exam as documented by resident - Medical Decision Making 03/01/19 06:10 Evaluate for N/STEMI, ACS, consider dissection f/u labs, imaging, ekg dispo per clinical course likely admit +troponin, no dissection AC, admit tele.
[2019-03-01] MEDS ORDERED: ASPIRIN 325 MG TABLET PO ONE (03:01)
[2019-03-01] MEDS ORDERED: NITROGLYCERIN SUBLINGUAL 1/150 0.4 MG TAB SL ONE (03:01)
[2019-03-01 03:04] LABS: NEUT % 64.7 % (42.8-82.8)
[2019-03-01] MEDS ORDERED: ASPIRIN 325 MG TABLET ONE (03:05)
[2019-03-01] MEDS ORDERED: NITROGLYCERIN SUBLINGUAL 1/150 0.4 MG TAB ONE (03:06)
[2019-03-01] MEDS ORDERED: NITROGLYCERIN 2% OINTMENT - 1GM PACKET TD ONE ×2 (03:13→03:15)
[2019-03-01 03:18] LABS: INR 1.04 (0.83-1.09); PROTHROMBIN TIME (PATIENT) 12.3 SEC (9.7-13.0)
[2019-03-01 03:22] LABS: BASO % 0.5 % (0-2.0); EOS % 0.8 % (0-4.5); HEMATOCRIT 26.3 % (32.4-45.2); HEMOGLOBIN 8.1 GM/dL (10.7-15.3); LYMPH % 28.2 % (8-40); MCH 21.2 pg (25.7-33.7); MCHC 30.8 g/dl (32.0-36.0); MEAN CELL VOLUME 68.8 fl (80-96); MEAN PLT VOLUME 7.8 fl (7.5-11.1); MONO % 5.8 % (3.8-10.2); PLATELET COUNT 393 K/MM3 (134-434); RBC 3.82 M/mm3 (3.60-5.2); RDW 22.4 % (11.6-15.6); WHITE BLOOD COUNT 11.5 K/mm3 (4.0-10.0)
[2019-03-01] MEDS ORDERED: morphine CARPU-JECT 4 MG/1 ML DISP.SYRIN IVPUSH ONE ×2 (03:53→04:38)
[2019-03-01] MEDS ORDERED: morphine SULFATE 4 MG/ML VIAL ONE ×3 (03:55→11:37)
[2019-03-01 04:14] VITALS: BMI 24.0
[2019-03-01 04:41] LABS: ALBUMIN 3.9 g/dl (3.4-5.0); BILIRUBIN,TOTAL 0.2 mg/dL (0.2-1); BLOOD UREA NITROGEN 14.9 mg/dL (7-18); CALCIUM 9.1 mg/dL (8.5-10.1); CREATININE 1.1 mg/dL (0.55-1.3); POTASSIUM 4.5 mmol/L (3.5-5.1); TOT PROT 7.8 g/dl (6.4-8.2)
[2019-03-01 04:44] LABS: N-TERMINAL BNP 1664.3 pg/ml (5-125)
[2019-03-01] MEDS ORDERED: HEPARIN NA (PORCINE) 5,000 UNITS/ML 1ML VIAL IVPUSH PRN ×2 (04:48)
[2019-03-01] MEDS ORDERED: HEPARIN INFUSION - 25,000 UNITS/500 ML INFUS.BAG IVPB ONE (05:05)
[2019-03-01] MEDS: HEPARIN - 25,000 UNIT in SODIUM CHLORIDE 495 ML IV SCH ×2 (05:12→12:44)
[2019-03-01] MEDS ORDERED: ONDANSETRON 4 MG/2 ML VIAL IVPUSH ONE (06:04)
[2019-03-01] MEDS ORDERED: FAMOTIDINE 20 MG/50 ML IVPB 20 MG/50 ML MG IVPB ONE ×2 (06:04→06:07)
[2019-03-01] MEDS ORDERED: ONDANSETRON 4 MG/2 ML VIAL ONE (06:07)
[2019-03-01] MEDS ORDERED: ACETAMINOPHEN 1000 MG/100 ML VIAL (NON FORMULARY) IVPB ONE (06:15)
[2019-03-01] MEDS ORDERED: ACETAMINOPHEN INJECTION 100 ML IVPB ONE (06:17)
--- NOTE | 2019-03-01 07:58 | HP ---
CHIEF COMPLAINT: "i have chest pain" PCP: Erik Cardio: [facility] team Dr. Ramos and Dr. Fontaine HISTORY OF PRESENT ILLNESS: This is a 38 yo F with PMH of CAD (6 stents, triple bypass), multiple admissions for NSTEMI, last here october with NSTEMI, was transferred to [facility] where she had stent removal and CABG, CHF, HTN, HLD, gastritis, DM, CKD, pneumomediastinum, anxiety, depression, and polysubstance use (THC, ecstasy) who presented with substernal chest pain radiating to her neck and back x 2 hr. pain started at midnight while lying in bed 4 hr after last meal, 05/28, unrelieved by sublingual nitroglycerin given in ed. pain not pleuritic and nonreproducible. reports assiciated sweating but denies sob, palpitations, dizziness, le edema, orthopnea. Reports intermittent chest soreness since CABG , however this pain is different from her previous MIs or post op pain. Reports URI 2-3 weeks ago with rhinorrhea, cough productive of clear sputum and fever 104. reports poor appetite, denies weight change. denies melena, hematochezia, hematuria, hemoptysis. last cardiology visit 1w ago. compliant with medication. recently smoked marijuana but no other drug use or alcohol use. ER course was notable for: (1)labs, asa, ntg, morphine, ranitidine, hep gtt (2)ekg, cxr (3)cta Recent Travel: denies PAST MEDICAL HISTORY: as above PAST SURGICAL HISTORY: as above Social History: Smoking: past heavy smoker Alcohol: denies Drugs: marijuana Family History: no cardiac history Allergies cephalexin monohydrate [From Keflex] Allergy (Severe, Verified 03/01/19 03:36) Hives HOME MEDICATIONS: Home Medications Medication Instructions Recorded Aspirin [Aspirin EC] 81 mg PO DAILY 11/13/15 Gabapentin 300 mg PO HS 05/06/18 Pantoprazole Sodium [Protonix] 40 mg PO DAILY 05/06/18 Quetiapine Fumarate [Seroquel -] 25 mg PO HS 05/06/18 Atorvastatin Ca [Lipitor] 80 mg PO HS tablet 11/07/18 Clopidogrel Bisulfate [Plavix -] 75 mg PO DAILY tablet 11/07/18 Labetalol HCl [Normodyne -] 200 mg PO BID 03/01/19 Metoclopramide HCl [Reglan] 5 mg PO DAILY 03/01/19 metFORMIN HCL [Metformin ER 1,000 mg PO BID 03/01/19 Gastric] REVIEW OF SYSTEMS CONSTITUTIONAL: Absent: fever, chills HEENT: Absent: difficulty swallowing CARDIOVASCULAR: Absent: syncope, palpitations, irregular heart rate, lightheadedness, peripheral edema RESPIRATORY: Absent: shortness of breath, orthopnea, hemoptysis GASTROINTESTINAL: Absent: abdominal pain, abdominal distension, nausea, vomiting, diarrhea, constipation, melena, hematochezia GENITOURINARY: Absent: dysuria, hematuria MUSCULOSKELETAL: Absent: myalgia, arthralgia SKIN: Absent: rash, itching, pallor HEMATOLOGIC/IMMUNOLOGIC: Absent: easy bleeding, easy bruising ENDOCRINE: Absent: unexplained weight gain, unexplained weight loss NEUROLOGIC: Absent: headache, focal weakness or paresthesias PSYCHIATRIC: Absent: anxiety, depression PHYSICAL EXAMINATION Vital Signs - 24 hr 03/01/19 03/01/19 03/01/19 02:15 02:35 03:27 Temperature 98.2 F Pulse Rate 91 H Pulse Rate [ Left] Respiratory Rate Blood Pressure 143/92 Blood Pressure 148/88 102/62 [Left Arm] O2 Sat by Pulse 100 Oximetry (%) 03/01/19 03/01/19 06:55 07:26 Temperature 98.4 F 98.8 F Pulse Rate Pulse Rate [ 107 H 89 Left] Respiratory 18 17 Rate Blood Pressure Blood Pressure 150/95 126/80 [Left Arm] O2 Sat by Pulse 95 99 Oximetry (%) GENERAL: Awake, alert, and fully oriented, in no acute distress. HEAD: Normal with no signs of trauma. EYES: Pupils equal, round and reactive to light, extraocular movements intact, sclera anicteric, conjunctiva clear. No lid lag. EARS, NOSE, THROAT: Moist mucous membranes. NECK: supple +JVD LUNGS: bibasilar crackles HEART: Regular rate and rhythm, normal S1 and S2 ABDOMEN: Soft, nontender, not distended, normoactive bowel sounds, no guarding, no rebound, no masses. MUSCULOSKELETAL: No CVA tenderness. UPPER EXTREMITIES: 2+ pulses, warm, well-perfused. No cyanosis. No clubbing. No peripheral edema. LOWER EXTREMITIES: warm, well-perfused. No calf tenderness. No peripheral edema. NEUROLOGICAL: Cranial nerves II-XII grossly intact. Normal speech. PSYCHIATRIC: Cooperative. Good eye contact. Appropriate mood and affect. SKIN: Warm, dry Laboratory Results - last 24 hr 03/01/19 03/01/19 03/01/19 02:40 02:40 02:40 WBC 11.5 H RBC 3.82 Hgb 8.1 L Hct 26.3 L MCV 68.8 L MCH 21.2 L D MCHC 30.8 L RDW 22.4 H Plt Count 393 MPV 7.8 D Absolute Neuts (auto) 7.4 Neutrophils % 64.7 D Lymphocytes % 28.2 D Monocytes % 5.8 Eosinophils % 0.8 Basophils % 0.5 Nucleated RBC % 0 PT with INR 12.30 INR 1.04 PTT (Actin FS) Sodium Cancelled Potassium Cancelled Chloride Cancelled Carbon Dioxide Cancelled Anion Gap Cancelled BUN Cancelled Creatinine Cancelled Est GFR (CKD-EPI)AfAm Cancelled Est GFR (CKD-EPI)NonAf Cancelled POC Glucometer Random Glucose Cancelled Calcium Cancelled Magnesium Cancelled Total Bilirubin Cancelled AST Cancelled ALT Cancelled Alkaline Phosphatase Cancelled Creatine Kinase Cancelled Creatine Kinase Index CK-MB (CK-2) Troponin I Cancelled B-Natriuretic Peptide Cancelled Total Protein Cancelled Albumin Cancelled Serum , Qual 03/01/19 03/01/19 03/01/19 02:40 03:34 04:04 WBC RBC Hgb Hct MCV MCH MCHC RDW Plt Count MPV Absolute Neuts (auto) Neutrophils % Lymphocytes % Monocytes % Eosinophils % Basophils % Nucleated RBC % PT with INR INR PTT (Actin FS) 29.1 Sodium 134 L Potassium 4.5 Chloride 101 Carbon Dioxide 24 Anion Gap 9 BUN 14.9 Creatinine 1.1 Est GFR (CKD-EPI)AfAm 72.73 Est GFR (CKD-EPI)NonAf 62.75 POC Glucometer 269 Random Glucose 273 H Calcium 9.1 Magnesium Total Bilirubin 0.2 AST 27 ALT 24 Alkaline Phosphatase 59 Creatine Kinase Creatine Kinase Index CK-MB (CK-2) Troponin I B-Natriuretic Peptide Total Protein 7.8 Albumin 3.9 Serum , Qual 03/01/19 03/01/19 04:04 04:04 WBC RBC Hgb Hct MCV MCH MCHC RDW Plt Count MPV Absolute Neuts (auto) Neutrophils % Lymphocytes % Monocytes % Eosinophils % Basophils % Nucleated RBC % PT with INR INR PTT (Actin FS) Sodium Potassium Chloride Carbon Dioxide Anion Gap BUN Creatinine Est GFR (CKD-EPI)AfAm Est GFR (CKD-EPI)NonAf POC Glucometer Random Glucose Calcium Magnesium Total Bilirubin AST ALT Alkaline Phosphatase Creatine Kinase 228 H Creatine Kinase Index 4.0 CK-MB (CK-2) 9.3 H Troponin I 1.58 H* B-Natriuretic Peptide 1664.3 H Total Protein Albumin Serum , Qual Negative ASSESSMENT/PLAN: This is a 38 yo F with PMH of CAD (6 stents, triple bypass), multiple admissions for NSTEMI, last here october with NSTEMI, was transferred to [facility] where she had stent removal and CABG, CHF, HTN, HLD, gastritis, DM, CKD, pneumomediastinum, anxiety, depression, and polysubstance use (THC, ecstasy) who presented with substernal chest pain radiating to her neck and back x 2 hr. Chest pain new severely microcytic anemia recent CABG CAD s/p PCI stents Past NSTEMI CHF NIDDM HTN HLD CKD anxiety depression polysubstance abuse -ekg no changes from prior no evidence of acute acs -CXR, cta chest bibasilar congestion -BNP 1664 compared to 330; some clinical evidence of volume overload -trop 1.58, next one 9.7; suspicious for acs -some lab values can be in part explained by CABG in feb -possible demand ischemia due to anema -cant r/o underlying arrhythmia, low cardiac output syndrome post cabg -recent severe uri, cant r/o viral myocarditis (not supported by ekg) -on hep gtt although Leslie would be better -tylenol, morphine for cp -patient declines ntg because if doesnt help her and gives her h/a -cardio consult appreciated -need to r/o acute bleed, f/u sob. trend cbc, Fe studies, b12, folate, haptoglobin, retic, fibrinogen, ldh -need to check tfts, lipid panel, a1c. -ED discussed xfer to [facility] with CABG team, xfer denied initially but accepted after 2nd trop value came back
--- NOTE | 2019-03-01 08:35 | PDOC ---
*Physical Exam - Vital Signs Last Vital Signs Temp Pulse Resp BP Pulse Ox 98.8 F 89 17 126/80 99 03/01/19 07:26 03/01/19 07:26 03/01/19 07:26 03/01/19 07:26 03/01/19 07:26 ED Treatment Course - LABORATORY CBC & Chemistry Diagram: 03/01/19 02:40 03/01/19 04:04 - ADDITIONAL ORDERS Additional order review: Laboratory Results 03/01/19 03/01/19 03/01/19 04:04 04:04 04:04 PT with INR INR PTT (Actin FS) Sodium 134 L Potassium 4.5 Chloride 101 Carbon Dioxide 24 Anion Gap 9 BUN 14.9 Creatinine 1.1 Est GFR (CKD-EPI)AfAm 72.73 Est GFR (CKD-EPI)NonAf 62.75 POC Glucometer Random Glucose 273 H Calcium 9.1 Magnesium Total Bilirubin 0.2 AST 27 ALT 24 Alkaline Phosphatase 59 Creatine Kinase 228 H Creatine Kinase Index 4.0 CK-MB (CK-2) 9.3 H Troponin I 1.58 H* B-Natriuretic Peptide 1664.3 H Total Protein 7.8 Albumin 3.9 Serum , Qual Negative 03/01/19 03/01/19 03/01/19 03:34 02:40 02:40 PT with INR 12.30 INR 1.04 PTT (Actin FS) 29.1 Sodium Potassium Chloride Carbon Dioxide Anion Gap BUN Creatinine Est GFR (CKD-EPI)AfAm Est GFR (CKD-EPI)NonAf POC Glucometer 269 Random Glucose Calcium Magnesium Total Bilirubin AST ALT Alkaline Phosphatase Creatine Kinase Creatine Kinase Index CK-MB (CK-2) Troponin I B-Natriuretic Peptide Total Protein Albumin Serum , Qual 03/01/19 02:40 PT with INR INR PTT (Actin FS) Sodium Cancelled Potassium Cancelled Chloride Cancelled Carbon Dioxide Cancelled Anion Gap Cancelled BUN Cancelled Creatinine Cancelled Est GFR (CKD-EPI)AfAm Cancelled Est GFR (CKD-EPI)NonAf Cancelled POC Glucometer Random Glucose Cancelled Calcium Cancelled Magnesium Cancelled Total Bilirubin Cancelled AST Cancelled ALT Cancelled Alkaline Phosphatase Cancelled Creatine Kinase Cancelled Creatine Kinase Index CK-MB (CK-2) Troponin I Cancelled B-Natriuretic Peptide Cancelled Total Protein Cancelled Albumin Cancelled Serum , Qual 03/01/19 03/01/19 03:34 02:40 RBC 3.82 MCV 68.8 L MCHC 30.8 L RDW 22.4 H MPV 7.8 D Neutrophils % 64.7 D Lymphocytes % 28.2 D Monocytes % 5.8 Eosinophils % 0.8 Basophils % 0.5 POC Glucometer 269 - Medications Given in the ED: ED Medications Discontinued Medications Generic Name Dose Route Start Last Admin Trade Name Tarun PRN Reason Stop Dose Admin Acetaminophen 1,000 mg 03/01/19 06:15 03/01/19 06:21 Ofirmev Injection - IVPB 03/01/19 06:16 1,000 mg ONCE ONE Administration Aspirin 325 mg 03/01/19 03:01 03/01/19 03:08 Asa - PO 03/01/19 03:02 325 mg ONCE ONE Administration Famotidine/Sodium Chloride 20 mg in 50 mls @ 100 mls/hr 03/01/19 06:04 06:14 Pepcid 20 Mg Premixed Ivpb - IVPB 03/01/19 06:33 100 mls/hr ONCE ONE Administration Morphine Sulfate 4 mg 03/01/19 03:53 03/01/19 03:58 Morphine Injection - IVPUSH 03/01/19 03:54 4 mg ONCE ONE Administration Morphine Sulfate 4 mg 03/01/19 04:38 03/01/19 04:42 Morphine Injection - IVPUSH 03/01/19 04:39 4 mg ONCE ONE Administration Nitroglycerin 0.4 mg 03/01/19 03:01 03/01/19 03:08 Nitrostat - SL 03/01/19 03:02 0.4 mg ONCE ONE Administration Nitroglycerin 1 inch 03/01/19 03:13 03/01/19 03:26 Nitro-Bid 2% Paste - TD 03/01/19 03:14 1 inch ONCE ONE Administration Ondansetron HCl 4 mg 03/01/19 06:04 03/01/19 06:14 Zofran Injection IVPUSH 03/01/19 06:05 4 mg ONCE ONE Administration Medical Decision Making - Medical Decision Making 03/01/19 08:34 Sign out recieved from Dr Teixeira. Jesusita Berry is a 38yo woman with a PMH of CAD (6 stents, triple bypass), CHF, HTN, HLD, gastritis, DM, CKD, pneumomediastinum, anxiety, depression, and polysubstance use (THC, ecstasy) who presented overnight with 2 hours of substernal chest pain that radaited to the neck. ED course was notable for unchanged EKG from 11/06 Pain controlled with 8mg IV morphine total plus IV acetaminophen Labs notable for WBC 11.5, glucose 273. Trop elevated to 1.58. Night team contacted [facility] (pt had CABG there) but declined due to no STEMI Dr Ng contacted as he follows Ms Berry as an outpatient, currently at bedside for evaluation. Medicine team currently in ED for admission, will be admitted to telemetry on Dr Vargas's service. Discussed with Dr Santana. Magali Gar PGY1 *DC/Admit/Observation/Transfer Diagnosis at time of Disposition: NSTEMI (non-ST elevated myocardial infarction), Elevated troponin Chest pain Qualifiers: Chest pain type: unspecified Qualified Code(s): R07.9 - Chest pain, unspecified - Discharge Dispostion Condition at time of disposition: Stable - Referrals Referrals: Ashleigh Valencia MD [Primary Care Provider] - - Patient Instructions - Post Discharge Activity
--- NOTE | 2019-03-01 09:09 | CON.CARD ---
Consult Consult Specialty:: Cardiology Referred by:: Dr. Vargas Reason for Consultation:: Chest pain - History of Present Illness Chief Complaint: chest pain History of Present Illness: 38 F DM, CAD, s/p NSTEMIs, mulitple PCIs and CABG now presents with recurrent chest pain. Patient c/o chest pressure, central, since last evening. No ass SOB. No N/V. She had a URI and cough 2 weeks ago and was given a course of abx? Now denies fevers or productive cough. No edema, PND, orthopnea On previous admissions, patient does have hx chronically elevated TnI. Now noted to be anemic. - History Source History Provided By: Patient - Past Medical History Cardio/Vascular: Yes: CAD, CHF, HTN, MN, Hyperlipdemia, Other Pulmonary: Yes: Bronchitis Gastrointestinal: Yes: Gastritis, Other (Gastroparesis). No: Ascites, Cancer, Constipation, Crohn's Disease, Diverticulitis, Diverticulosis, Esophageal Varices, GERD, GI Bleed, Hemorrhoids, Hiatal Hernia, Inflamatory Bowel Disease, Irritable Bowel Disease, Pancreatitis, Peptic Ulcer Disease, Ulcerative Colitis Renal/: Yes: Renal Inusuff ...LMP: 12/05/17 Psych: Yes: Anxiety, Depression, Panic, Other Musculoskeletal: Yes: Other Endocrine: Yes: Diabetes Mellitus - Past Surgical History Past Surgical History: Yes: , Stent, Colonoscopy, Upper Endoscopy, CABG - Alcohol/Substance Use Hx Alcohol Use: No History of Substance Use: reports: Marijuana, Prescription Date of Last Use: 10/07/17 (ecstasy) - Smoking History Smoking history: Former smoker Have you smoked in the past 12 months: No Aproximately how many cigarettes per day: 5 If you are a former smoker, when did you quit?: 12/20/17 - Social History Usual Living Arrangement: Other (with boyfriend) ADL: Independent History of Recent Travel: No Home Medications - Allergies Allergies/Adverse Reactions: Allergies Allergy/AdvReac Type Severity Reaction Status Date / Time cephalexin monohydrate Allergy Severe Hives Verified 03/01/19 03:36 [From [employer]] - Home Medications Home Medications: Ambulatory Orders Aspirin [Aspirin EC] 81 mg PO DAILY 11/13/15 Gabapentin 300 mg PO HS 05/06/18 Pantoprazole Sodium [Protonix] 40 mg PO DAILY 05/06/18 Quetiapine Fumarate [Seroquel -] 25 mg PO HS 05/06/18 Atorvastatin Ca [Lipitor] 80 mg PO HS tablet 11/07/18 Clopidogrel Bisulfate [Plavix -] 75 mg PO DAILY tablet 11/07/18 Labetalol HCl [Normodyne -] 200 mg PO BID 03/01/19 Metoclopramide HCl [Reglan] 5 mg PO DAILY 03/01/19 metFORMIN HCL [Metformin ER Gastric] 1,000 mg PO BID 03/01/19 Family Disease History - Family Disease History Family Disease History: Diabetes: Mother (htn) Review of Systems Findings/Remarks: see HPI - Review of Systems Constitutional: reports: No Symptoms Eyes: reports: No Symptoms HENT: reports: No Symptoms Cardiovascular: reports: Chest Pain Respiratory: reports: No Symptoms Gastrointestinal: reports: No Symptoms Genitourinary: reports: No Symptoms Breasts: reports: No Symptoms Reported Musculoskeletal: reports: No Symptoms Integumentary: reports: No Symptoms Neurological: reports: No Symptoms Endocrine: reports: No Symptoms Hematology/Lymphatic: reports: No Symptoms Psychiatric: reports: No Symptoms - Risk Factors Known Risk Factors: Yes: Diabetes Mellitus, Other (known CAD) Vital Signs: Vital Signs Temperature 98.8 F 03/01/19 07:26 Pulse Rate 89 03/01/19 07:26 Respiratory Rate 17 03/01/19 07:26 Blood Pressure 126/80 03/01/19 07:26 O2 Sat by Pulse Oximetry (%) 99 03/01/19 07:26 Constitutional: Yes: No Distress, Calm Eyes: Yes: Conjunctiva Clear Respiratory: Yes: CTA Bilaterally Gastrointestinal: Yes: Soft (NT) Cardiovascular: Yes: Regular Rate and Rhythm JVD: No Carotid Bruit: No PMI: Non-Displaced Heart Sounds: Yes: S1, S2 (RRR) Edema: No Peripheral Pulses WNL: Yes Neurological: Yes: Alert, Oriented ...Motor Strength: WNL - Other Data Labs, Other Data: CBC, BMP 03/01/19 02:40 03/01/19 04:04 INR, PTT INR 1.04 (0.83-1.09) 03/01/19 02:40 Troponin, BNP 03/01/19 03/01/19 02:40 04:04 Troponin I Cancelled 1.58 H* B-Natriuretic Peptide Cancelled 1664.3 H Troponin, BNP 03/01/19 03/01/19 02:40 04:04 Troponin I Cancelled 1.58 H* B-Natriuretic Peptide Cancelled 1664.3 H Laboratory Tests 03/01/19 03/01/19 03/01/19 02:40 04:04 04:04 WBC 11.5 H Hgb 8.1 L Plt Count 393 Sodium 134 L Potassium 4.5 Creatinine 1.1 Creatine Kinase 228 H Troponin I 1.58 H* B-Natriuretic Peptide 1664.3 H Serum , Qual 03/01/19 04:04 WBC Hgb Plt Count Sodium Potassium Creatinine Creatine Kinase Troponin I B-Natriuretic Peptide Serum , Qual Negative NSR , poor R wave progression, NSST Echo: Pending Prior Cardiac Procedures: CABG, PTCA with Stent Ejection Fraction %: LVEF > or = 40 % Imaging - Results Cat Scan: Image Reviewed (Negative for dissection, PNA) EKG: Image Reviewed Assessment/Plan IMP: 1. CAD s/p PCIs, and recent CABG 2. NSTEMI 3. Worsened anemia: ? etiology 4. DM 5. HTN REC: 1. ASA, heparin gtts 2. Cycle cardiac enzymes 3. Echo 4. Telemetry 5. Guaiac stool, follow H/H: assure no bleeding. 6. Can hold Plavix until sure that H/H stable. 7. Resume Lipitor 80mg daily 8. Beta cynthia 9. Pending clinical course (enzyme trend, H/H) may need cath.
[2019-03-01] MEDS ORDERED: ACETAMINOPHEN 325 MG TABLET (FP) PO PRN (09:10)
[2019-03-01] MEDS ORDERED: INSULIN SLIDING SCALE (NOVOLOG) 1 VIAL SQ SCH (11:00)
[2019-03-01 11:04] LABS: MAGNESIUM 1.9 mg/dL (1.8-2.4); PHOSPHOROUS 5.9 mg/dL (2.5-4.9)
[2019-03-01 11:14] LABS: ANISOCYTOSIS 2+; MACROCYTOSIS 0; PLATELET ESTIMATE NORMAL
[2019-03-01] MEDS ORDERED: TICAGRELOR 90 MG TABLET PO ONE (11:22)
--- NOTE | 2019-03-01 11:25 | ECHO ---
Name: BEVERLEY PARKER Exam:Adult Echocardiogram Study Date: 03/01/2019 10:25 AM Age: 38 yrs Reason For Study: S/P CABG Height: 69 in Weight: 163 lb BSA: 1.9 m2 MMode/2D Measurements & Calculations IVSd: 0.96 cm Ao root diam: 2.8 cm LVIDd: 4.8 cm LA dimension: 3.5 cm LVIDs: 3.1 cm LVPWd: 1.1 cm EDV(Teich): 105.8 ml LVOT diam: 2.0 cm ESV(Teich): 38.6 ml RV S Lenin: 9.4 cm/sec Doppler Measurements & Calculations MV E max leinn: 91.7 cm/sec TR max lenin: 413.4 cm/sec MV A max lenin: 54.8 cm/sec TR max P.4 mmHg MV E/A: 1.7 MV dec time: 0.11 sec Med Peak E' Lenin: 2.7 cm/sec Med E/e': 33.7 Lat Peak E' Lenin: 6.1 cm/sec Lat E/e': 15.1 Left Ventricle Ejection Fraction = 40-45%. Severe hypokinesis of the apical anterior wall, apical inferior wall and true apex. The inferior wall also appears mildly hypokinetic. Right Ventricle The right ventricle is grossly normal size. The right ventricular systolic function is grossly normal . Atria Normal left and right atrial size and function. Mitral Valve The mitral valve is normal in structure and function. There is no mitral valve stenosis. There is mil d mitral regurgitation. Tricuspid Valve The tricuspid valve is normal in structure and function. There is mild tricuspid regurgitation. Right ventricular systolic pressure is elevated at >60mmHg. Aortic Valve There is mild aortic sclerosis.;. No hemodynamically significant valvular aortic stenosis. No aortic regurgitation is present. Pulmonic Valve The pulmonic valve is not well seen, but is grossly normal. There is no pulmonic valvular stenosis. T here is no pulmonic valvular regurgitation. Great Vessels The aortic root is normal size. Pericardium/Pleura There is no pericardial effusion. Interpretation Summary Severe hypokinesis of the apical anterior wall, apical inferior wall and true apex. The inferior wall also appears mildly hypokinetic. Ejection Fraction = 40-45%. There is mild mitral regurgitation. There is mild tricuspid regurgitation. Right ventricular systolic pressure is elevated at >60mmHg. There is mild aortic sclerosis.; There is no pericardial effusion. MD Zambrano *Beernice 03/01/2019 11:24 AM
[2019-03-01] MEDS ORDERED: INSULIN (NOVOLOG) ASPART 100 UNITS/ML 10ML VIAL ONE (11:28)
--- NOTE | 2019-03-01 11:30 | EKG ---
Test Reason : Blood Pressure : / mmHG Vent. Rate : 092 BPM Atrial Rate : 092 BPM P-R Int : 164 ms QRS Dur : 090 ms QT Int : 358 ms P-R-T Axes : 045 022 170 degrees QTc Int : 442 ms NORMAL SINUS RHYTHM LOW VOLTAGE QRS CANNOT RULE OUT ANTERIOR INFARCT (CITED ON OR BEFORE 06-NOV-2018) T WAVE ABNORMALITY, CONSIDER LATERAL ISCHEMIA ABNORMAL ECG WHEN COMPARED WITH ECG OF 01-MAR-2019 02:17, NO SIGNIFICANT CHANGE WAS FOUND Confirmed by DANNIELLE MARSH MD ([id number]) on 03/01/2019 11:29:41 AM Referred By: BRIT Confirmed By:DANNIELLE MARSH MD
--- NOTE | 2019-03-01 11:31 | EKG ---
Test Reason : Blood Pressure : / mmHG Vent. Rate : 090 BPM Atrial Rate : 090 BPM P-R Int : 174 ms QRS Dur : 096 ms QT Int : 384 ms P-R-T Axes : 047 054 194 degrees QTc Int : 469 ms NORMAL SINUS RHYTHM POSSIBLE LEFT ATRIAL ENLARGEMENT LOW VOLTAGE QRS CANNOT RULE OUT ANTERIOR INFARCT (CITED ON OR BEFORE 06-NOV-2018) T WAVE ABNORMALITY, CONSIDER LATERAL ISCHEMIA ABNORMAL ECG Confirmed by DANNIELLE MARSH MD ([id number]) on 03/01/2019 11:30:51 AM Referred By: Confirmed By:DANNIELLE MARSH MD
[2019-03-01] MEDS: morphine SULFATE 4 MG/ML VIAL IVPUSH PRN ×2 (11:38→16:31)
--- NOTE | 2019-03-01 12:31 | PN ---
Teaching Attending Note Name of Resident: Stefany Gamino ATTENDING PHYSICIAN STATEMENT I saw and evaluated the patient. I reviewed the resident's note and discussed the case with the resident. I agree with the resident's findings and plan as documented. CC: I'm having chest pain HPI: Ms Berry is a 38 year old female with history of CAD s/p recent CABG in who comes in with chest pain. She says the pain began earlier in the week. She says it was not severe and did not think it was serious as it went away. However last night the pain recurred and it was constant. She says it felt like her previous heart pain. She had a slight non-productive cough with it. She had dyspnea on exertion with it as well. She denies fevers, chills, lightheadedness , passing out, nausea, vomiting, diarrhea, constipation, difficulty or pain on urination, or edema. Since the pain did not go away and it felt like her previous cardiac pain, she came in for further evaluation. Past Medical History Cardio/Vascular CAD,CHF,HTN,ND,Hyperlipdemia,Other Pulmonary Bronchitis Gastrointestinal Gastritis (Gastroparesis),Other Renal/ Renal Inusuff Psych Anxiety,Depression,Panic,Other Endocrine Diabetes Mellitus Past Surgical History Past Surgical History ,Stent,Colonoscopy,Upper Endoscopy, CABG Home Medications Medication Instructions Recorded Aspirin [Aspirin EC] 81 mg PO DAILY 11/13/15 Gabapentin 300 mg PO HS 05/06/18 Pantoprazole Sodium [Protonix] 40 mg PO DAILY 05/06/18 Quetiapine Fumarate [Seroquel -] 25 mg PO HS 05/06/18 Atorvastatin Ca [Lipitor] 80 mg PO HS tablet 11/07/18 Clopidogrel Bisulfate [Plavix -] 75 mg PO DAILY tablet 11/07/18 Labetalol HCl [Normodyne -] 200 mg PO BID 03/01/19 Metoclopramide HCl [Reglan] 5 mg PO DAILY 03/01/19 metFORMIN HCL [Metformin ER 1,000 mg PO BID 03/01/19 Gastric] Social History Smoking history Former smoker Have you smoked in the past 12 No months Hx Alcohol Use No History of Substance Use Marijuana,Prescription Date of Last Use 10/07/17 (ecstasy) Usual Living Arrangement With Parent ADL Independent ROS: full review of systems obtained, as per HPI and otherwise negative OBJECTIVE: Last Vital Signs Temp Pulse Resp BP Pulse Ox 37.0 C 86 16 117/71 100 03/01/19 13:29 03/01/19 13:29 03/01/19 13:29 03/01/19 13:29 03/01/19 13:29 Gen: nad HEENT: perrla, eomi, mmm Pulm: ctab w/o w/r/r CV: rrr w/o m/r/g Abd: +bs, s/nt/nd Ext: no c/c/e CBC, BMP 03/01/19 02:40 03/01/19 04:04 ASSESSMENT AND PLAN: -case d/w Dr Ng -troponin continues to elevate -CTA negative for PE -ECHO shows worsening mobility -continue heparin gtt -will load with brilinta -plan to transfer to [facility] for further care Problem List - Problems (1) NSTEMI (non-ST elevated myocardial infarction) Code(s): I21.4 - NON-ST ELEVATION (NSTEMI) MYOCARDIAL INFARCTION (2) ACS (acute coronary syndrome) Code(s): I24.9 - ACUTE ISCHEMIC HEART DISEASE, UNSPECIFIED (3) Anemia Code(s): D64.9 - ANEMIA, UNSPECIFIED (4) Diabetes Code(s): E11.9 - TYPE 2 DIABETES MELLITUS WITHOUT COMPLICATIONS Qualifiers: Diabetes mellitus type: type 2 Diabetes mellitus complication status: with circulatory complication (5) Gastroparesis Code(s): K31.84 - GASTROPARESIS (6) HTN (hypertension) Code(s): I10 - ESSENTIAL (PRIMARY) HYPERTENSION Qualifiers: Hypertension type: essential hypertension (7) Hyperlipidemia Code(s): E78.5 - HYPERLIPIDEMIA, UNSPECIFIED Qualifiers: Hyperlipidemia type: unspecified Qualified Code(s): E78.5 - Hyperlipidemia , unspecified (8) Hypertension Code(s): I10 - ESSENTIAL (PRIMARY) HYPERTENSION Qualifiers: Hypertension type: essential hypertension Qualified Code(s): I10 - Essential (primary) hypertension
[2019-03-01 18:29] VITALS: BP 119/75; PULSE 77; TEMP 97.7
[2019-03-01] MEDS ORDERED: ATORVASTATIN CA 80 MG TABLET (FP) PO SCH ×2 (22:00)
[2019-03-01] MEDS ORDERED: GABAPENTIN 300 MG CAPSULE (FP) PO SCH (22:00)
[2019-03-01] MEDS ORDERED: QUEtiapine FUMARATE 25 MG TABLET (FP) PO SCH (22:00)
[2019-03-01] MEDS ORDERED: LABETALOL HCL 200 MG TABLET (FP) PO SCH (22:00)
[2019-03-02] MEDS ORDERED: ASPIRIN COATED 81 MG TABLET.EC PO SCH (10:00)
[2019-03-02] MEDS ORDERED: PANTOPRAZOLE 40 MG TABLET (FP) PO SCH (10:00)
[2019-03-02] MEDS ORDERED: METOCLOPRAMIDE HCL 10 MG TABLET (FP) PO SCH (10:00)
== END 2019-03-01 18:43 | disposition short-term general hospital (02) | DRG 281 ==
LOC: JER 02:13 → JERBED 06:34 → J4W 14:52
PROVIDERS: ADMIT Internal Medicine; ATTEND Internal Medicine
DX: I21.4 Non-ST elevation (NSTEMI) myocardial infarction (principal); I13.0 Hypertensive heart and chronic kidney disease with heart failure and stage 1 through stage 4 chronic kidney disease, or unspecified chronic kidney disease; R07.89 Other chest pain; E78.5 Hyperlipidemia, unspecified; I25.10 Atherosclerotic heart disease of native coronary artery without angina pectoris; K29.70 Gastritis, unspecified, without bleeding; I24.9 Acute ischemic heart disease, unspecified; D64.9 Anemia, unspecified; F41.8 Other specified anxiety disorders; E11.43 Type 2 diabetes mellitus with diabetic autonomic (poly)neuropathy; K31.84 Gastroparesis; E11.22 Type 2 diabetes mellitus with diabetic chronic kidney disease; N18.9 Chronic kidney disease, unspecified; F19.10 Other psychoactive substance abuse, uncomplicated; I25.2 Old myocardial infarction; Z95.1 Presence of aortocoronary bypass graft; Z95.5 Presence of coronary angioplasty implant and graft; Z85.41 Personal history of malignant neoplasm of cervix uteri
CPT/HCPCS: 36415; 71045-TC-FY; 71275-TC; 80053; 82272; 82550; 82553; 82962; 83735; 83880; 84100; 84484; 84703; 85025; 85610; 85730; 93005; 93010; 93306-TC; 99285-25; J0131; J1644

== ENCOUNTER 2019-06-02 13:51 | Emergency (ER) | payer OTHER ==
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
[2019-06-02 14:30] VITALS: BP 100/67; PULSE 67; TEMP 98.2; BMI 25.1
[2019-06-02] MEDS ORDERED: ACETAMINOPHEN 1000 MG/100 ML VIAL (NON FORMULARY) IVPB ONE (15:32)
[2019-06-02 16:14] LABS: BASO % 1.1 % (0-2.0); EOS % 1.5 % (0-4.5); HEMATOCRIT 32.5 % (32.4-45.2); HEMOGLOBIN 10.6 GM/dL (10.7-15.3); LYMPH % 32.4 % (8-40); MCH 27.7 pg (25.7-33.7); MCHC 32.5 g/dl (32.0-36.0); MEAN PLT VOLUME 7.6 fl (7.5-11.1); PLATELET COUNT 307 K/MM3 (134-434); RBC 3.83 M/mm3 (3.60-5.2); RDW 19.6 % (11.6-15.6); WHITE BLOOD COUNT 6.6 K/mm3 (4.0-10.0)
[2019-06-02 16:24] LABS: ALBUMIN 3.7 g/dl (3.4-5.0); BILIRUBIN,TOTAL 0.4 mg/dL (0.2-1); BLOOD UREA NITROGEN 16.4 mg/dL (7-18); CALCIUM 9.2 mg/dL (8.5-10.1); TOT PROT 7.2 g/dl (6.4-8.2)
--- NOTE | 2019-06-02 16:27 | EKG ---
Test Reason : Blood Pressure : / mmHG Vent. Rate : 065 BPM Atrial Rate : 065 BPM P-R Int : 174 ms QRS Dur : 092 ms QT Int : 458 ms P-R-T Axes : 035 022 132 degrees QTc Int : 476 ms NORMAL SINUS RHYTHM LEFT ATRIAL ENLARGEMENT T WAVE ABNORMALITY, CONSIDER LATERAL ISCHEMIA PROLONGED QT ABNORMAL ECG WHEN COMPARED WITH ECG OF 01-MAR-2019 04:47, NO SIGNIFICANT CHANGE WAS FOUND Confirmed by MD LISA, MAUREEN ([id number]) on 06/02/2019 4:26:47 PM Referred By: Confirmed By:MAUREEN GONZALEZ MD
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
[2019-06-02 16:59] LABS: PH,URINE 6.5 (5.0-8.0); URINE APPEARANCE CLOUDY; URINE BILIRUBIN NEGATIVE (NEGATIVE); URINE COLOR YELLOW; URINE GLUCOSE (UA) NEGATIVE (NEGATIVE); URINE KETONE TRACE (NEGATIVE); URINE LEUK ESTERASE 1+ (NEGATIVE); URINE NITRITE NEGATIVE (NEGATIVE); URINE PROTEIN 1+ (NEGATIVE)
[2019-06-02 17:25] LABS: COCAINE, UR NEGATIVE ng/ml (CUTOFF=300); METHADONE, UR NEGATIVE ng/ml (CUTOFF=300); OPIATES, URI NEGATIVE ng/ml (CUTOFF=300); PHENCYCLIDINE,URINE NEGATIVE ng/ml (CUTOFF=25); URINE AMPHETAMINES NEGATIVE ng/ml (CUTOFF=500); URINE BARBITURATES NEGATIVE ng/ml (CUTOFF=200); URINE BENZODIAZEPINES NEGATIVE ng/ml (CUTOFF=200)
[2019-06-02 17:34] LABS: ADD RBC MORPHOLOGY YES
[2019-06-02 17:35] LABS: ANISOCYTOSIS 1+; MACROCYTOSIS 1+; PLATELET ESTIMATE ADEQUATE; TARGET CELLS 1+
[2019-06-02 17:56] LABS: URINE RBC 2.3 /hpf (0-4)
[2019-06-02 17:57] LABS: EPI CELLS 17.4 /HPF (0-5/HPF); HYALINE CASTS 12.41 /lpf (0-8); URINE BACTERIA 328.9 /hpf (NEGATIVE); URINE WBC 9.6 /hpf (0-5)
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
== END 2019-06-02 20:52 | disposition left against medical advice (07) ==
LOC: JER 13:51
PROC: B246ZZZ Ultrasonography of Right and Left Heart (ICD-10-PCS; principal; 2019-06-02)
PROC: BW40ZZZ Ultrasonography of Abdomen (ICD-10-PCS; 2019-06-02)
DX: M54.6 Pain in thoracic spine (principal); V03.10XA Pedestrian on foot injured in collision with car, pick-up truck or van in traffic accident, initial encounter; Y92.414 Local residential or business street as the place of occurrence of the external cause; Y93.89 Activity, other specified; Y99.8 Other external cause status; I25.10 Atherosclerotic heart disease of native coronary artery without angina pectoris; I13.0 Hypertensive heart and chronic kidney disease with heart failure and stage 1 through stage 4 chronic kidney disease, or unspecified chronic kidney disease; N18.9 Chronic kidney disease, unspecified; I50.9 Heart failure, unspecified; Z95.1 Presence of aortocoronary bypass graft; Z95.5 Presence of coronary angioplasty implant and graft; Z79.84 Long term (current) use of oral hypoglycemic drugs; E78.5 Hyperlipidemia, unspecified; Z79.01 Long term (current) use of anticoagulants; F41.8 Other specified anxiety disorders; F31.9 Bipolar disorder, unspecified; F19.10 Other psychoactive substance abuse, uncomplicated; E11.22 Type 2 diabetes mellitus with diabetic chronic kidney disease
CPT/HCPCS: 36415; 70450-TC; 71260-TC; 72125-TC; 74177-TC; 76705-TC; 80053; 80307; 81003; 84484; 84703; 85025; 87086; 93005; 93010; 93308; 99283-25

== ENCOUNTER 2019-10-01 10:19 | Observation (INO) | payer BC, OTHER ==
--- NOTE | 2019-10-01 10:50 | PDOC ---
History of Present Illness <Jo Ann Martinez - Last Filed: 10/01/19 13:00> - History of Present Illness Initial Comments: 10/01/19 10:51 HPI: 39 y/o F with hx of CAD s/p CABG and multiple PCI on ASA and Plavix, multiple admissions for NSTEMI, CHF, HTN, HLD, gastritis, DM, CKD, pneumomediastinum, anxiety, depression, and polysubstance use (THC, ecstasy) sent to ED from Dr Valencia's clinic for chest pain. Chest pain started 2-3 days ago but worsened this morning. She said it woke her up at 6:30am with her left sided chest pain with radiation to the midsternum and neck. Pain is 8/10 and feels like a heaviness/squeezing. She also associates nausea and 1 episode of emesis as well as SOB and diaphoresis on exertion when she got out of bed. She denies fever, syncope, abd pain dysuria. She also reports congestion, dry cough, rhinorrhea over the past 2 weeks which hasnt improved. PMHx: as noted above ROS: as noted SHx: Denies tobacco use; no alcohol use; MJ 4x/week Allergies: see chart ROS: GENERAL/CONSTITUTIONAL: No fever or chills. No weakness. HEAD, EYES, EARS, NOSE AND THROAT: No change in vision. No ear pain or discharge. No sore throat. CARDIOVASCULAR: +chest pain and shortness of breath RESPIRATORY: +cough; no wheezing, or hemoptysis. GASTROINTESTINAL: +nausea, vomiting; no diarrhea or constipation. GENITOURINARY: No dysuria, frequency, or change in urination. MUSCULOSKELETAL: No joint or muscle swelling or pain. No neck or back pain. SKIN: No rash NEUROLOGIC: No headache, vertigo, loss of consciousness, or change in strength/ sensation. ENDOCRINE: No increased thirst. No abnormal weight change HEMATOLOGIC/LYMPHATIC: No anemia, easy bleeding, or history of blood clots. ALLERGIC/IMMUNOLOGIC: No hives or skin allergy. PE: GENERAL: Awake, alert, and fully oriented, moderate distress with depressed/ anxious mood and crying HEAD: No signs of trauma, normocephalic, atraumatic EYES: EOMI, sclera anicteric, conjunctiva clear ENT: Auricles normal inspection, hearing grossly normal, nares patent, oropharynx clear without exudates. Moist mucosa NECK: Normal ROM, no lymphadenopathy LUNGS: No increased work of breathing, symmetrical chest rise, coarse breath sounds in L>R bases HEART: Regular rate and rhythm, normal S1 and S2, no murmur, peripheral pulses 2 + and equal bilaterally. ABDOMEN: Soft, nondistended, nontender, normoactive bowel sounds. No guarding, no rebound. No masses. No CVAT MUSCULOSKELETAL: Normal inspection, FROM NEUROLOGICAL: Cranial nerves II through XII grossly intact. Normal speech, normal gait, no focal sensorimotor deficits SKIN: Warm, Dry, normal turgor, no rashes or lesions noted <Isidro Paris - Last Filed: 10/01/19 13:13> - General Chief Complaint: Chest Pain Stated Complaint: CHEST PAIN Time Seen by Provider: 10/01/19 10:46 Past History <Jo Ann Martinez - Last Filed: 10/01/19 13:00> - Past Medical History Anemia: No Asthma: No Cancer: Yes (cervical ca) Cardiac Disorders: Yes (CHF) CVA: No COPD: No CHF: Yes DVT: No Dementia: No Diabetes: Yes GI Disorders: Yes (GASTROPARESIS) Disorders: No HTN: Yes Hypercholesterolemia: Yes Liver Disease: No Psychiatric Problems: Yes (anxiety) Seizures: No Thyroid Disease: No - Surgical History Abdominal Surgery: No Appendectomy: No Cardiac Surgery: Yes (5 stents//last on 08/03/18) Cholecystectomy: No Lung Surgery: No Neurologic Surgery: No Orthopedic Surgery: Yes (right ROTATOR CUFF REPAIR) - Reproductive History (#): 5 Para: 0 Cervical CA: Yes Dysfunctional Uterine Bleeding: Yes Ectopic : Yes Endometrial CA: Yes Therapeutic (s) & number: Yes (1) Spontaneous : 4 - Immunization History Immunization Up to Date: Yes - Psycho Social/Smoking Cessation Hx Smoking Status: Yes (QUIT 3 MONTHS AGO) Smoking History: Never smoked Have you smoked in the past 12 months: No Number of Cigarettes Smoked Daily: 5 If you are a former smoker, when did you quit?: 12/20/17 'Breaking Loose' booklet given: 03/01/19 Hx Alcohol Use: No Drug/Substance Use Hx: Yes (MARIJUANA) Substance Use Type: None Hx Substance Use Treatment: No <Isidro Paris - Last Filed: 10/01/19 13:13> - Past Medical History Allergies/Adverse Reactions: Allergies Allergy/AdvReac Type Severity Reaction Status Date / Time cephalexin monohydrate Allergy Severe Hives Verified 10/01/19 10:26 [From Keflex] Home Medications: Ambulatory Orders Aspirin [Aspirin EC] 81 mg PO DAILY 11/13/15 Gabapentin 300 mg PO HS 05/06/18 Pantoprazole Sodium [Protonix] 40 mg PO DAILY 05/06/18 Quetiapine Fumarate [Seroquel -] 25 mg PO HS 05/06/18 Atorvastatin Ca [Lipitor] 80 mg PO HS tablet 11/07/18 Clopidogrel Bisulfate [Plavix -] 75 mg PO DAILY tablet 11/07/18 metFORMIN HCL [Metformin ER Gastric] 1,000 mg PO BID 03/01/19 Metoprolol Tartrate 25 mg PO BID 10/01/19 *Physical Exam - Vital Signs Last Vital Signs Temp Pulse Resp BP Pulse Ox 98.4 F 72 18 128/90 100 10/01/19 10:26 10/01/19 11:57 10/01/19 11:57 10/01/19 11:57 10/01/19 11:57 <Jo Ann Martinez - Last Filed: 10/01/19 13:00> - Vital Signs Last Vital Signs Temp Pulse Resp BP Pulse Ox 98.4 F 72 17 149/94 100 10/01/19 10:26 10/01/19 10:26 10/01/19 10:26 10/01/19 10:26 10/01/19 10:26 <Isidro Paris - Last Filed: 10/01/19 13:13> ED Treatment Course - LABORATORY CBC & Chemistry Diagram: 10/01/19 10:50 10/01/19 10:50 - ADDITIONAL ORDERS Additional order review: Laboratory Results 10/01/19 10/01/19 10/01/19 10:50 10:50 10:50 PT with INR INR PTT (Actin FS) Sodium 134 L Potassium 4.6 Chloride 106 Carbon Dioxide 25 Anion Gap 3 L BUN 13.7 Creatinine 1.0 Est GFR (CKD-EPI)AfAm 81.04 Est GFR (CKD-EPI)NonAf 69.92 Random Glucose 233 H Calcium 8.8 Magnesium 1.9 Total Bilirubin 0.2 AST 48 H ALT 47 Alkaline Phosphatase 62 Creatine Kinase 168 Creatine Kinase Index 1.3 CK-MB (CK-2) 2.2 Troponin I 0.03 Total Protein 7.5 Albumin 3.7 Serum , Qual Negative 10/01/19 10:50 PT with INR 12.30 INR 1.04 PTT (Actin FS) 29.9 Sodium Potassium Chloride Carbon Dioxide Anion Gap BUN Creatinine Est GFR (CKD-EPI)AfAm Est GFR (CKD-EPI)NonAf Random Glucose Calcium Magnesium Total Bilirubin AST ALT Alkaline Phosphatase Creatine Kinase Creatine Kinase Index CK-MB (CK-2) Troponin I Total Protein Albumin Serum , Qual 10/01/19 10:50 RBC 3.78 MCV 87.5 MCHC 33.4 RDW 17.4 H MPV 8.2 Neutrophils % 75.7 D Lymphocytes % 12.7 D Monocytes % 8.5 Eosinophils % 2.7 Basophils % 0.4 - RADIOLOGY Radiology Studies Ordered: Category Date Time Status CHEST PA & LAT [RAD] Stat Radiology 10/01/19 10:44 Completed - Medications Given in the ED: ED Medications Discontinued Medications Generic Name Dose Route Start Last Admin Trade Name Freq PRN Reason Stop Dose Admin Alprazolam 0.5 mg 10/01/19 11:29 10/01/19 11:34 Xanax PO 10/01/19 11:30 0.5 mg ONCE STA Administration Aspirin 243 mg 10/01/19 11:14 10/01/19 11:24 Asa - PO 10/01/19 11:15 243 mg ONCE ONE Administration Morphine Sulfate 4 mg 10/01/19 12:10 10/01/19 12:20 Morphine Injection - IVPUSH 10/01/19 12:11 4 mg ONCE ONE Administration Nitroglycerin 0.4 mg 10/01/19 11:50 10/01/19 11:57 Nitrostat - SL 10/01/19 11:51 0.4 mg ONCE ONE Administration <Jo Ann Martinez - Last Filed: 10/01/19 13:00> - LABORATORY CBC & Chemistry Diagram: 10/01/19 10:50 10/01/19 10:50 <Isidro Paris - Last Filed: 10/01/19 13:13> Medical Decision Making - Medical Decision Making 10/01/19 11:26 39 y/o F with hx of CAD s/p CABG and multiple PCI on ASA and Plavix, multiple admissions for NSTEMI, CHF, HTN, HLD, gastritis, DM, CKD, pneumomediastinum, anxiety, depression, and polysubstance use (THC, ecstasy) sent to ED from Dr Valencia's clinic for chest pain worsening this morning associated with n/v, diaphoresis, and EUGENE. BP 161/100, HR 80s, AF. PE with coarse breath sounds in LLL. DDX includes ACS, myocarditis, pericarditis, panic attack, pna, viral bronchitis. PE less likely due to PERC out. -ACS order set, aspirin 243 (took 81mg at home) -xanax 0.5mg, nitro SL 0.4mg 10/01/19 13:12 still with pain, administered 4mg morphine will admit to tele under [place] will consult Dr Ng <Isidro Paris - Last Filed: 10/01/19 13:13> Discharge - Discharge Information Problems reviewed: Yes - Admission Yes <Jo Ann Martinez - Last Filed: 10/01/19 13:00> <Isidro Paris - Last Filed: 10/01/19 13:13> - Discharge Information Clinical Impression/Diagnosis: CAD (coronary artery disease) Qualifiers: Coronary Disease-Associated Artery/Lesion type: [place] artery [place] vs. transplanted heart: [place] heart Associated angina: with unstable angina Qualified Code(s): I25.110 - Atherosclerotic heart disease of [place] coronary artery with unstable angina pectoris Chest pain Qualifiers: Chest pain type: unspecified Qualified Code(s): R07.9 - Chest pain, unspecified - Follow up/Referral Referrals: Ashleigh Valencia MD [Non Staff, Medical] -
--- NOTE | 2019-10-01 11:00 | PDOC ---
Attending Attestation - Resident Resident Name: Isidro Paris - ED Attending Attestation I have performed the following: I have examined & evaluated the patient, The case was reviewed & discussed with the resident, I agree w/resident's findings & plan - HPI HPI: 10/01/19 11:03 39yo woman with a PMH of CAD s/p NSTEMI s/p 6x stents s/p 3vCABG, CHF, HTN, HLD , DM, CKD, gastritis, anxiety/depression and polysubstance abuse (THC, ecstasy) presents to the ED with chest pain x 3 days. a/w anxiety cp described as pressure-like, substernal, nonradiating, nonexertional. feels similar to prior NSTEMI requiring stents/CABG recent of her siblings from heart disease - early NC in brother who in january, at age [address] Valencai's office for evaluation of chest pain. Cards: Dr Ng 10/01/19 11:33 10/01/19 12:24 - Physicial Exam PE: 10/01/19 10:55 Agree with the resident's HPI and PE as documented in the electronic medical record. +anxious. tearful. EOMI, PERRL, nl conjunctiva, anicteric; neck supple. lungs clear, RRR, abdomen soft nontender. no rebound, guarding. Back nontender. MOORE x4 , no focal neuro deficits. No peripheral edema. normal color for ethnicity, WWP. - Medical Decision Making 10/01/19 10:56 Vital Signs Temp Pulse Resp BP Pulse Ox 98.4 F 72 17 149/94 100 10/01/19 10:26 10/01/19 10:26 10/01/19 10:26 10/01/19 10:26 10/01/19 10:26 DDx chest pain: ACS, coronary vasospasm, NSTEMI, arrhythmia, unstable angina, PE , dissection, PUD, esophageal spasm, GERD, gastritis, costochondritis, pneumonia , pleurisy, pericarditis/myocarditis. dehydration, electrolyte/metabolic derangements. Considered but clinically doubt based on HPI and PE: Low suspicion for pulmonary embolism or dissection. No evidence pericarditis, pericardial effusionmyocarditis, pulmonary embolism, pneumothorax, pneumonia, Zoster, or esophageal perforation. Historically not abrupt in onset, tearing or ripping, pulses symmetric, no evidence of aortic dissection. EKG normal sinus rhythm, no interval abnormalities, narrow QRS, ST and T wave segments and morphology normal. Nonspecific T wave abnormalities in lateral leads, unchanged from prior Chest pain HEART score 4 which denotes Moderate risk and probability for ACS, risk of 14-16% of MACE at 4-6 wks Given risk factors including comorbidities, gender, family and smoking/drug use. family history, and high risk features Patient given aspirin, nitroglycerin for the chest pain without relief so escalated to morphine 4 mg IV. Xanax for anxiolysis as patient is very anxious and tearful on examination while complaining of the chest pain Laboratory results are within normal limits, normal lytes, negative . Troponin/CK panel is preliminarily negative, will need serial troponin/EKG and telemetry monitoring. prior trops have been elevated. limited bedside echo without pericardial effusion, EF depressed, RV<LV, normal aortic root cxr is clear, no acute pathology - sternotomy scars in place. Plan for admit observation, possible Stress testing, to r/o ischemia/ACS, serial trops and EKG/tele monitoring. ASA administered, pain being controlled, discussion with patient and family at bedside, made aware of impression and plan , questions answered. Dr Ng consultation, her appian bpm developer 10/01/19 12:25 10/01/19 13:10 10/01/19 13:15 Heart Score/ECG Review - History History: Moderately suspicious - Electrocardiogram EKG: Non specific repolarization disturbance - Age Age: </= 45 - Risk Factors Risk Factors Heart Score: Yes Hx Hypercholesterolemia, Yes Hx Hypertension, Yes Hx Diabetes, Yes Smoking History, Yes Positive family hx of cardiac disease Based on the list above the patient has:: >/=3 risk factors or Hx atherosclerotic disease - Troponin Troponin: </= normal limit - Score Heart Score - Total: 4 #1 ECG reviewed & interpreted by me at: 10:25 General ECG Interpretation: Sinus Rhythm, Normal Rate, Normal Intervals Compared to previous ECG there are: No significant change 10/01/19 11:00 EKG normal sinus rhythm 79 bpm, no interval abnormalities, narrow QRS, ST and T wave segments and morphology normal. Nonspecific T wave abnormalities - TWI in V4-6, I, AVL
[2019-10-01 11:09] LABS: BASO % 0.4 % (0-2.0); EOS % 2.7 % (0-4.5); HEMATOCRIT 33.1 % (32.4-45.2); LYMPH % 12.7 % (8-40); MCH 29.2 pg (25.7-33.7); MCHC 33.4 g/dl (32.0-36.0); MEAN CELL VOLUME 87.5 fl (80-96); MEAN PLT VOLUME 8.2 fl (7.5-11.1); MONO % 8.5 % (3.8-10.2); NEUT % 75.7 % (42.8-82.8); PLATELET COUNT 304 K/MM3 (134-434); RBC 3.78 M/mm3 (3.60-5.2); RDW 17.4 % (11.6-15.6); WHITE BLOOD COUNT 9.5 K/mm3 (4.0-10.0)
[2019-10-01] MEDS ORDERED: ASPIRIN 81 MG CHEWABLE TABLETS PO ONE (11:14)
[2019-10-01] MEDS ORDERED: ASPIRIN 81 MG CHEWABLE TABLETS ONE (11:20)
[2019-10-01] MEDS ORDERED: ALPRAZolam 1 MG TABLET PO STA (11:29)
[2019-10-01] MEDS ORDERED: ALPRAZolam 0.25 MG TABLET ONE (11:31)
[2019-10-01 11:32] LABS: INR 1.04 (0.83-1.09); PROTHROMBIN TIME (PATIENT) 12.3 SEC (9.7-13.0)
[2019-10-01 11:35] LABS: ACTIVATED PTT 29.9 SECONDS (25.2-36.5)
[2019-10-01] MEDS ORDERED: NITROGLYCERIN SUBLINGUAL 1/150 0.4 MG TAB SL ONE (11:50)
[2019-10-01] MEDS ORDERED: NITROGLYCERIN SUBLINGUAL 1/150 0.4 MG TAB ONE (11:55)
[2019-10-01 11:58] LABS: ALBUMIN 3.7 g/dl (3.4-5.0); BILIRUBIN,TOTAL 0.2 mg/dL (0.2-1); BLOOD UREA NITROGEN 13.7 mg/dL (7-18); CALCIUM 8.8 mg/dL (8.5-10.1); MAGNESIUM 1.9 mg/dL (1.8-2.4); POTASSIUM 4.6 mmol/L (3.5-5.1); TOT PROT 7.5 g/dl (6.4-8.2)
[2019-10-01] MEDS ORDERED: morphine CARPU-JECT 4 MG/1 ML DISP.SYRIN IVPUSH ONE (12:10)
[2019-10-01] MEDS ORDERED: morphine SULFATE 4 MG/ML VIAL ONE (12:13)
--- NOTE | 2019-10-01 12:33 | EKG ---
Test Reason : Blood Pressure : / mmHG Vent. Rate : 079 BPM Atrial Rate : 079 BPM P-R Int : 158 ms QRS Dur : 088 ms QT Int : 400 ms P-R-T Axes : 041 036 116 degrees QTc Int : 458 ms NORMAL SINUS RHYTHM POSSIBLE LEFT ATRIAL ENLARGEMENT LOW VOLTAGE QRS NONSPECIFIC T WAVE ABNORMALITY ABNORMAL ECG Confirmed by MD DOMENICO, MELCHOR ([id number]) on 10/01/2019 12:33:36 PM Referred By: Confirmed By:MELCHOR ACUÑA MD
[2019-10-01 13:38] LABS: COCAINE, UR NEGATIVE ng/ml (CUTOFF=300); METHADONE, UR NEGATIVE ng/ml (CUTOFF=300); PHENCYCLIDINE,URINE NEGATIVE ng/ml (CUTOFF=25); URINE AMPHETAMINES NEGATIVE ng/ml (CUTOFF=500); URINE BARBITURATES NEGATIVE ng/ml (CUTOFF=200); URINE BENZODIAZEPINES NEGATIVE ng/ml (CUTOFF=200)
[2019-10-01 13:42] LABS: OPIATES, URI POSITIVE ng/ml (CUTOFF=300)
--- NOTE | 2019-10-01 13:58 | HP ---
CHIEF COMPLAINT: Chest pain PCP: Dr. Valencia HISTORY OF PRESENT ILLNESS: Patient is a 38 yo F with PMH of CAD (6 stents, triple bypass), multiple admissions for NSTEMI, CABG @ [facility] 11/06, CHF, HTN, HLD, gastritis, DM, CKD , anxiety, depression, and polysubstance use (THC, ecstasy), presenting today because of intermittent, 9/10 L sided, substernal chest pain that started this morning. she describes the pain as heaviness/pressure and radiates to her neck. She said she's had chest pain over the last 2 days but got worse this morning. She says the pain feels like her prior [place] pain and not the usual anxiety. She also associates nausea and 1 episode of emesis as well as SOB and diaphoresis on exertion when she got out of bed. Patient currently has a 7/[address] Ng is her PCP. Currently denies SOB, nausea, dizziness, chills, fevers , recent illness, bloody stools, headaches, abdominal pain, cough. ER course was notable for: (1) 1st set trop negative (2) EKG normal sinus rhythm 79 bpm, no interval abnormalities, narrow QRS, ST and T wave segments and morphology normal. Nonspecific T wave abnormalities - TWI in V4-6, I, AVL (3) ASA, nitrostat with mild relief Recent Travel: n/a PAST MEDICAL HISTORY: per HPI Social History: Smoking: denies Alcohol: rarely Drugs: marijuana 2 times a day Allergies cephalexin monohydrate [From Keflex] Allergy (Severe, Verified 10/01/19 10:26) Hives HOME MEDICATIONS: Home Medications Medication Instructions Recorded Aspirin [Aspirin EC] 81 mg PO DAILY 11/13/15 Gabapentin 800 mg PO HS 05/06/18 Pantoprazole Sodium [Protonix] 40 mg PO DAILY 05/06/18 Quetiapine Fumarate [Seroquel -] 25 mg PO HS 05/06/18 Atorvastatin Ca [Lipitor] 80 mg PO HS tablet 11/07/18 Clopidogrel Bisulfate [Plavix -] 75 mg PO DAILY tablet 11/07/18 metFORMIN HCL [Metformin ER 1,000 mg PO BID 03/01/19 Gastric] Metoprolol Tartrate 25 mg PO BID 10/01/19 REVIEW OF SYSTEMS per HPI PHYSICAL EXAMINATION Vital Signs - 24 hr 10/01/19 10/01/19 10/01/19 10:26 10:44 11:57 Temperature 98.4 F Pulse Rate 72 Pulse Rate [ 72 Apical] Respiratory 17 18 Rate Blood Pressure 149/94 Blood Pressure 128/90 [Right Arm] O2 Sat by Pulse 100 100 100 Oximetry (%) 10/01/19 13:36 Temperature Pulse Rate Pulse Rate [ 68 Apical] Respiratory 20 Rate Blood Pressure Blood Pressure 128/83 [Right Arm] O2 Sat by Pulse 100 Oximetry (%) GENERAL: a/o x 3 HEAD: Normal with no signs of trauma. EYES: Pupils equal, round and reactive to light EARS, NOSE, THROAT: Moist mucous membranes. NECK:supple without lymphadenopathy, JVD, or masses. LUNGS: mild crackles at the base HEART: RRR, no murmurs appreciated. mild sternal tenderness on palpation where possible sternal sutures are placed. ABDOMEN: Soft, nontender, not distended, normoactive bowel sounds LOWER EXTREMITIES: 2+ pulses, warm, No peripheral edema. NEUROLOGICAL: Cranial nerves II-XII intact Laboratory Results - last 24 hr 10/01/19 10/01/19 10/01/19 10:50 10:50 10:50 WBC 9.5 RBC 3.78 Hgb 11.0 Hct 33.1 MCV 87.5 MCH 29.2 MCHC 33.4 RDW 17.4 H Plt Count 304 MPV 8.2 Absolute Neuts (auto) 7.2 Neutrophils % 75.7 D Lymphocytes % 12.7 D Monocytes % 8.5 Eosinophils % 2.7 Basophils % 0.4 Nucleated RBC % 0 PT with INR 12.30 INR 1.04 PTT (Actin FS) 29.9 Sodium Potassium Chloride Carbon Dioxide Anion Gap BUN Creatinine Est GFR (CKD-EPI)AfAm Est GFR (CKD-EPI)NonAf Random Glucose Calcium Magnesium Total Bilirubin AST ALT Alkaline Phosphatase Creatine Kinase 168 Creatine Kinase Index 1.3 CK-MB (CK-2) 2.2 Troponin I 0.03 Total Protein Albumin Serum , Qual 10/01/19 10/01/19 10:50 10:50 WBC RBC Hgb Hct MCV MCH MCHC RDW Plt Count MPV Absolute Neuts (auto) Neutrophils % Lymphocytes % Monocytes % Eosinophils % Basophils % Nucleated RBC % PT with INR INR PTT (Actin FS) Sodium 134 L Potassium 4.6 Chloride 106 Carbon Dioxide 25 Anion Gap 3 L BUN 13.7 Creatinine 1.0 Est GFR (CKD-EPI)AfAm 81.04 Est GFR (CKD-EPI)NonAf 69.92 Random Glucose 233 H Calcium 8.8 Magnesium 1.9 Total Bilirubin 0.2 AST 48 H ALT 47 Alkaline Phosphatase 62 Creatine Kinase Creatine Kinase Index CK-MB (CK-2) Troponin I Total Protein 7.5 Albumin 3.7 Serum , Qual Negative ASSESSMENT/PLAN: 38 yo F with PMH of CAD (6 stents, triple bypass), multiple admissions for NSTEMI, CABG @ [facility] 11/06, CHF, HTN, HLD, gastritis, DM, CKD, anxiety, depression, and polysubstance use (THC, ecstasy), presenting because of chest pain. #Chest Pain r/o ACS -1st trop set negative -Asa given in ED -nitrostat -FU repeat trop -Tele monitoring -Last echo in February 2019. SEvere hypokinesis of apical ant wall. EF 40-45%, MILD MR, MILD TR. R vent syst pressure >60mmhg -Cardio consult: Dr. Ng. FU reccs -follow up morning labs -patient also complains of sternal discomfort. Broken sternal sutures appear on CXR. patient says she feels as if there are wires rubbing on her chest. #DM -SSI -hold home meds #S CHF -resume home meds #Anxiety/Depression -resume seroquel #HTN/CAD -resume ASA -lopressor 25mg BID #Dvt ppx -hep sq #FEN -no iv fluids -monitor -sodium controlled diet Visit type - Emergency Visit Emergency Visit: Yes ED Registration Date: 10/01/19 Care time: The patient presented to the Emergency Department on the above date and was hospitalized for further evaluation of their emergent condition. - New Patient This patient is new to me today: Yes Date on this admission: 10/01/19 - Critical Care Critical Care patient: No ATTENDING PHYSICIAN STATEMENT I saw and evaluated the patient. I reviewed the resident's note and discussed the case with the resident. I agree with the resident's findings and plan as documented. SUBJECTIVE: OBJECTIVE: ASSESSMENT AND PLAN:
--- NOTE | 2019-10-01 14:08 | CON.CARD ---
Consult Consult Specialty:: Cardiology Referred by:: Dr. Manley - History of Present Illness Chief Complaint: chest pain History of Present Illness: 39F hx CAD, s/p NSTEMIs, multiple PCI, CABG now being evaluated for possible cardiac transplant for refractory CAD presents to ER with 2 days substernal chest pressure at rest. States compliant w/ meds. BP in ER initially elevated, responded to meds (? due to pain?). Initial TnI negative 100% room air ECG: NSR with nonspecific ST/T changes. - History Source History Provided By: Patient - Past Medical History Cardio/Vascular: Yes: CAD, CHF, HTN, [place], Hyperlipdemia, Other Pulmonary: Yes: Bronchitis Gastrointestinal: Yes: Gastritis, Other (Gastroparesis). No: Ascites, Cancer, Constipation, Crohn's Disease, Diverticulitis, Diverticulosis, Esophageal Varices, GERD, GI Bleed, Hemorrhoids, Hiatal Hernia, Inflamatory Bowel Disease, Irritable Bowel Disease, Pancreatitis, Peptic Ulcer Disease, Ulcerative Colitis Renal/: Yes: Renal Inusuff ...LMP: 12/05/17 Psych: Yes: Anxiety, Depression, Panic, Other Musculoskeletal: Yes: Other Endocrine: Yes: Diabetes Mellitus - Past Surgical History Past Surgical History: Yes: , Stent, Colonoscopy, Upper Endoscopy, CABG - Alcohol/Substance Use Hx Alcohol Use: No History of Substance Use: reports: Marijuana, Prescription Date of Last Use: 10/07/17 (ecstasy) - Smoking History Smoking history: Never smoked Have you smoked in the past 12 months: No Aproximately how many cigarettes per day: 5 If you are a former smoker, when did you quit?: 12/20/17 - Social History Usual Living Arrangement: Other (with boyfriend) ADL: Independent History of Recent Travel: No Home Medications - Allergies Allergies/Adverse Reactions: Allergies Allergy/AdvReac Type Severity Reaction Status Date / Time cephalexin monohydrate Allergy Severe Hives Verified 10/01/19 10:26 [From [employer]grade] - Home Medications Home Medications: Ambulatory Orders Aspirin [Aspirin EC] 81 mg PO DAILY 11/13/15 Gabapentin 800 mg PO HS 05/06/18 Pantoprazole Sodium [Protonix] 40 mg PO DAILY 05/06/18 Quetiapine Fumarate [Seroquel -] 25 mg PO HS 05/06/18 Atorvastatin Ca [Lipitor] 80 mg PO HS tablet 11/07/18 Clopidogrel Bisulfate [Plavix -] 75 mg PO DAILY tablet 11/07/18 metFORMIN HCL [Metformin ER Gastric] 1,000 mg PO BID 03/01/19 Metoprolol Tartrate 25 mg PO BID 10/01/19 Family Medical History Family History: Unremarkable (not pertient to this presentation) Review of Systems - Review of Systems Constitutional: reports: No Symptoms Eyes: reports: No Symptoms HENT: reports: No Symptoms Neck: reports: No Symptoms Cardiovascular: reports: Chest Pain, Shortness of Breath Respiratory: reports: No Symptoms Gastrointestinal: reports: No Symptoms Genitourinary: reports: No Symptoms Breasts: reports: No Symptoms Reported Musculoskeletal: reports: No Symptoms, Muscle Cramps Neurological: reports: No Symptoms Endocrine: reports: No Symptoms Hematology/Lymphatic: reports: No Symptoms Psychiatric: reports: No Symptoms - Risk Factors Known Risk Factors: Yes: Diabetes Mellitus, Prior [place] /Emb Stroke, Other (known CAD) Vital Signs: Vital Signs Temperature 98.4 F 10/01/19 10:26 Pulse Rate 68 10/01/19 13:36 Respiratory Rate 10/01/19 13:36 Blood Pressure 128/83 10/01/19 13:36 O2 Sat by Pulse Oximetry (%) 100 10/01/19 13:36 Constitutional: Yes: No Distress, Calm Eyes: Yes: Conjunctiva Clear Respiratory: Yes: Other (rales 1/3 up left) Gastrointestinal: Yes: Soft Cardiovascular: Yes: Regular Rate and Rhythm JVD: No Carotid Bruit: No PMI: Non-Displaced Heart Sounds: Yes: S1, S2 (RRR, no M/R/G) Edema: Yes Edema: LLE: 1+, RLE: 1+ - Other Data Labs, Other Data: CBC, BMP 10/01/19 10:50 10/01/19 10:50 INR, PTT INR 1.04 (0.83-1.09) 10/01/19 10:50 Troponin, BNP 10/01/19 10:50 Troponin I 0.03 Troponin, BNP 10/01/19 10:50 Troponin I 0.[address]/T Echo: Pending Imaging - Results Chest X-ray: Image Reviewed EKG: Image Reviewed Assessment/Plan IMP: Known CAD s/p MIs, multivessel PCIs, CABG with refractory CAD now with chest pain r/o [place] DM Chronic HTN REC: 1. Tele for serial cardiac enzymes 2. Patient's coronary anatomy with severe distal disease, not amenable to further PCI. Was referred for transplant eval at [place]. Continue ASA/Plavix/ High dose statin and Metoprolol. Can add Imdur 3. Echo 4. Try to avoid opiates as there is hx of opiate seeking behaviors. 5. Will try to manage medically and have her f/u at [place] for further transplant eval
[2019-10-01] MEDS ORDERED: ISOSORBIDE MONONITRATE 60 MG TAB.SR.24H (FP) PO ONE (14:26)
[2019-10-01] MEDS: ISOSORBIDE MONONITRATE 30 MG TAB.SR.24H (FP) PO SCH (14:27)
--- NOTE | 2019-10-01 15:40 | ECHO ---
Version: 1 Name: BEVERLEY PARKER Exam: Adult Echocardiogram Study Date: 10/01/2019, 2:54 PM Age: 39 Years MMode/2D Measurements & Calculations IVSd: 0.89 cm LVIDs: 2.9 cm LVIDd: 4.2 cm LVPWd: 1.05 cm ACS: 2.02 cm Ao root diam: 2.9 cm LVOT diam: 1.78 cm LA dimension: 3.8 cm Doppler Measurements & Calculations MV E max lenin: 116.0 cm/sec Med E/e': 24.0 MV A max lenin: 50.0 cm/sec Med Peak E' Lenin: 4.8 cm/sec MV E/A: 2.32 Lat E/e': 17.6 Lat Peak E' Lenin: 6.6 cm/sec MR max P.8 mmHg Ao max P.1 mmHg DESTINEE(I,D): 1.88 cm Ao mean P.22 mmHg LV V1 mean: 52.5 cm/sec Ao V2 max: 112.5 cm/sec LV V1 mean P.24 mmHg PI end-d lenin: 192.7 cm/sec TR max lenin: 371.2 cm/sec TR max P.5 mmHg Left Ventricle The left ventricular size, thickness and function are normal. EF 59%. Abnormal diastolic relaxation. Right Ventricle The right ventricle is grossly normal size. The right ventricular systolic function is normal. Atria The left atrium is borderline dilated. Right atrial size is normal. Mitral Valve Mitral annular calcification. Tricuspid Valve The tricuspid valve is normal. There is mild tricuspid regurgitation. PASP 65 mmHg consistent with m oderate to severe pulmonary HTN. Aortic Valve Fibrocalcific changes of the aortic valve without aortic stenosis. Pulmonic Valve The pulmonic valve leaflets are thin and pliable; valve motion is normal. Great Vessels The aortic root is normal size. Pericardium/Pleura There is no pericardial effusion. Summary Statements The left ventricular size, thickness and function are normal Abnormal diastolic relaxation The right ventricle is grossly normal size. The right ventricular systolic function is normal. EF 59% The left atrium is borderline dilated. Right atrial size is normal. Mitral annular calcification The tricuspid valve is normal. There is mild tricuspid regurgitation. PASP 65 mmHg consistent with moderate to severe pulmonary HTN Fibrocalcific changes of the aortic valve without aortic stenosis There is no pericardial effusion. MD Josemanuel Obrien 10/01/2019, 3:39 PM Ordering Physician: Juan Manuel Ng Performed By: Gaby Garza
[2019-10-01] MEDS ORDERED: MORPHINE SULFATE 2 MG/ML VIAL IVPUSH ONE (17:10)
[2019-10-01] MEDS ORDERED: MORPHINE SULFATE 2 MG/ML VIAL ONE (17:25)
--- NOTE | 2019-10-01 19:02 | PN ---
Teaching Attending Note Name of Resident: Joel Richards ATTENDING PHYSICIAN STATEMENT I saw and evaluated the patient. I reviewed the resident's note and discussed the case with the resident. I agree with the resident's findings and plan as documented. SUBJECTIVE: Seen and examined at bedside, feeling better since arriving to ED. Chest pain subsided. OBJECTIVE: Vital Signs - 24 hr 10/01/19 10/01/19 10/01/19 10:26 10:44 11:57 Temperature 98.4 F Pulse Rate 72 Pulse Rate [ 72 Apical] Respiratory 17 18 Rate Blood Pressure 149/94 Blood Pressure 128/90 [Right Arm] O2 Sat by Pulse 100 100 100 Oximetry (%) 10/01/19 13:36 Temperature Pulse Rate Pulse Rate [ 68 Apical] Respiratory 20 Rate Blood Pressure Blood Pressure 128/83 [Right Arm] O2 Sat by Pulse 100 Oximetry (%) PE: Constitutional: Yes: No Distress, Calm Eyes: Yes: Conjunctiva Clear Respiratory: b/l crackles at bases Gastrointestinal: Yes: Soft Cardiovascular: Yes: Regular Rate and Rhythm Heart Sounds: Yes: S1, S2 (RRR, no M/R/G) Edema: LLE: 1+, RLE: 1+ Laboratory Results - last 24 hr 10/01/19 10/01/19 10/01/19 10:50 10:50 10:50 WBC 9.5 RBC 3.78 Hgb 11.0 Hct 33.1 MCV 87.5 MCH 29.2 MCHC 33.4 RDW 17.4 H Plt Count 304 MPV 8.2 Absolute Neuts (auto) 7.2 Neutrophils % 75.7 D Lymphocytes % 12.7 D Monocytes % 8.5 Eosinophils % 2.7 Basophils % 0.4 Nucleated RBC % 0 PT with INR 12.30 INR 1.04 PTT (Actin FS) 29.9 Sodium Potassium Chloride Carbon Dioxide Anion Gap BUN Creatinine Est GFR (CKD-EPI)AfAm Est GFR (CKD-EPI)NonAf POC Glucometer Random Glucose Calcium Magnesium Total Bilirubin AST ALT Alkaline Phosphatase Creatine Kinase 168 Creatine Kinase Index 1.3 CK-MB (CK-2) 2.2 Troponin I 0.03 Total Protein Albumin Serum , Qual Urine HCG, Qual Opiates Screen Methadone Screen Barbiturate Screen Phencyclidine Screen Ur Amphetamines Screen MDMA (Ecstasy) Screen Benzodiazepines Screen Cocaine Screen U Marijuana (THC) Screen 10/01/19 10/01/19 10/01/19 10:50 10:50 13:02 WBC RBC Hgb Hct MCV MCH MCHC RDW Plt Count MPV Absolute Neuts (auto) Neutrophils % Lymphocytes % Monocytes % Eosinophils % Basophils % Nucleated RBC % PT with INR INR PTT (Actin FS) Sodium 134 L Potassium 4.6 Chloride 106 Carbon Dioxide 25 Anion Gap 3 L BUN 13.7 Creatinine 1.0 Est GFR (CKD-EPI)AfAm 81.04 Est GFR (CKD-EPI)NonAf 69.92 POC Glucometer Random Glucose 233 H Calcium 8.8 Magnesium 1.9 Total Bilirubin 0.2 AST 48 H ALT 47 Alkaline Phosphatase 62 Creatine Kinase Creatine Kinase Index CK-MB (CK-2) Troponin I Total Protein 7.5 Albumin 3.7 Serum , Qual Negative Urine HCG, Qual Negative Opiates Screen Methadone Screen Barbiturate Screen Phencyclidine Screen Ur Amphetamines Screen MDMA (Ecstasy) Screen Benzodiazepines Screen Cocaine Screen U Marijuana (THC) Screen 10/01/19 10/01/19 10/01/19 13:02 14:19 17:29 WBC RBC Hgb Hct MCV MCH MCHC RDW Plt Count MPV Absolute Neuts (auto) Neutrophils % Lymphocytes % Monocytes % Eosinophils % Basophils % Nucleated RBC % PT with INR INR PTT (Actin FS) Sodium Potassium Chloride Carbon Dioxide Anion Gap BUN Creatinine Est GFR (CKD-EPI)AfAm Est GFR (CKD-EPI)NonAf POC Glucometer 205 201 Random Glucose Calcium Magnesium Total Bilirubin AST ALT Alkaline Phosphatase Creatine Kinase Creatine Kinase Index CK-MB (CK-2) Troponin I Total Protein Albumin Serum , Qual Urine HCG, Qual Opiates Screen Positive A* Methadone Screen Negative Barbiturate Screen Negative Phencyclidine Screen Negative Ur Amphetamines Screen Negative MDMA (Ecstasy) Screen Negative Benzodiazepines Screen Negative Cocaine Screen Negative U Marijuana (THC) Screen Positive A* Current Medications Aspirin (Ecotrin -) 81 mg PO DAILY [facility] Atorvastatin Calcium (Lipitor -) 80 mg PO HS [facility] Clopidogrel Bisulfate (Plavix -) 75 mg PO DAILY [facility] Gabapentin (Neurontin -) 800 mg PO HS [facility] Heparin Sodium (Porcine) (Heparin -) 5,000 unit SQ Q8H-IV [facility] Insulin Aspart (Novolog Vial Sliding Scale -) 1 vial SQ ACHS [facility]; Protocol Isosorbide Mononitrate (Imdur -) 30 mg PO DAILY [facility] Last Admin: 10/01/19 14:27 Dose: 30 mg Metoprolol Tartrate (Lopressor -) 25 mg PO BID [facility] Pantoprazole Sodium (Protonix -) 40 mg PO DAILY [facility] Quetiapine Fumarate (Seroquel -) 25 mg PO HS [facility] ALL IMAGING REPORTS REVIEWED ASSESSMENT: CAD s/p CABG Multivessel PCI's and severe distal disease DM2 HTN Hx polysubstance abuse Anxiety PLAN: trend troponins as per cardio note was referred for heart transplant eval, not yet seen at [facility] c/w cardioprotective meds, asa/plavix/bb/statin/nitrates 2dechoardiogram monitor on tele hx opiate use, asking for morphine, would be very cautious
[2019-10-01] MEDS ORDERED: GABAPENTIN 400 MG CAPSULE (FP) PO SCH (22:00)
[2019-10-01] MEDS ORDERED: ATORVASTATIN CA 80 MG TABLET (FP) PO SCH (22:00)
[2019-10-01] MEDS ORDERED: QUEtiapine FUMARATE 25 MG TABLET (FP) PO SCH (22:00)
[2019-10-01] MEDS ORDERED: ACETAMINOPHEN 1000 MG/100 ML VIAL (NON FORMULARY) IVPB ONE (22:25)
[2019-10-01] MEDS: INSULIN SLIDING SCALE (NOVOLOG) 1 VIAL SQ SCH (22:38)
[2019-10-01] MEDS: METOPROLOL TARTRATE 25 MG TABLET (FP) PO SCH (22:38)
[2019-10-02 02:51] VITALS: BMI 26.4
[2019-10-02] MEDS: HEPARIN NA (PORCINE) 5,000 UNITS/ML 1ML VIAL SQ SCH ×2 (05:27→10:37)
[2019-10-02] MEDS: INSULIN SLIDING SCALE (NOVOLOG) 1 VIAL SQ SCH ×2 (06:25→12:05)
[2019-10-02 07:30] LABS: BASO % 0.8 % (0-2.0); EOS % 4.7 % (0-4.5); HEMOGLOBIN 10.6 GM/dL (10.7-15.3); LYMPH % 23.3 % (8-40); MEAN CELL VOLUME 87.9 fl (80-96); MONO % 8.6 % (3.8-10.2); NEUT % 62.6 % (42.8-82.8); PLATELET COUNT 277 K/MM3 (134-434); RBC 3.65 M/mm3 (3.60-5.2); RDW 17.6 % (11.6-15.6); WHITE BLOOD COUNT 6.3 K/mm3 (4.0-10.0)
[2019-10-02 08:12] LABS: ALBUMIN 3.2 g/dl (3.4-5.0); BILIRUBIN,TOTAL 0.4 mg/dL (0.2-1); BLOOD UREA NITROGEN 9.5 mg/dL (7-18); CALCIUM 8.2 mg/dL (8.5-10.1); CREATININE 0.9 mg/dL (0.55-1.3); MAGNESIUM 1.9 mg/dL (1.8-2.4); POTASSIUM 3.9 mmol/L (3.5-5.1); TOT PROT 6.4 g/dl (6.4-8.2)
[2019-10-02 09:45] VITALS: BP 107/69; PULSE 66; TEMP 98.7
[2019-10-02] MEDS ORDERED: CLOPIDOGREL BISULFATE 75 MG TABLET (FP) PO SCH (10:00)
[2019-10-02] MEDS ORDERED: ASPIRIN COATED 81 MG TABLET.EC PO SCH (10:00)
[2019-10-02] MEDS ORDERED: PANTOPRAZOLE 40 MG TABLET (FP) PO SCH (10:00)
[2019-10-02] MEDS: ISOSORBIDE MONONITRATE 30 MG TAB.SR.24H (FP) PO SCH (10:37)
[2019-10-02] MEDS: METOPROLOL TARTRATE 25 MG TABLET (FP) PO SCH (10:37)
--- NOTE | 2019-10-02 11:28 | EKG ---
Test Reason : Blood Pressure : / mmHG Vent. Rate : 059 BPM Atrial Rate : 059 BPM P-R Int : 178 ms QRS Dur : 094 ms QT Int : 458 ms P-R-T Axes : 043 039 122 degrees QTc Int : 453 ms SINUS BRADYCARDIA POSSIBLE LEFT ATRIAL ENLARGEMENT LOW VOLTAGE QRS T WAVE ABNORMALITY, CONSIDER ANTEROLATERAL ISCHEMIA ABNORMAL ECG WHEN COMPARED WITH ECG OF 01-OCT-2019 10:22, NO SIGNIFICANT CHANGE WAS FOUND Confirmed by ANDREI PERALTA MD ([id number]) on 10/02/2019 11:27:42 AM Referred By: Confirmed By:ANDREI PERALTA MD
[2019-10-02] MEDS ORDERED: RANOLAZINE E.R. 500 MG TABLET (FP) PO SCH (11:45)
--- NOTE | 2019-10-02 11:47 | PN ---
Progress Note (short form) - Note Progress Note: s: has constant chest pain at rest ongoing for last few days. no palps, dizziness, dyspnea. Current Medications Aspirin (Ecotrin -) 81 mg PO DAILY [facility] Last Admin: 10/02/19 10:37 Dose: 81 mg Atorvastatin Calcium (Lipitor -) 80 mg PO HS [facility] Last Admin: 10/01/19 22:38 Dose: 80 mg Clopidogrel Bisulfate (Plavix -) 75 mg PO DAILY [facility] Last Admin: 10/02/19 10:37 Dose: 75 mg Gabapentin (Neurontin -) 800 mg PO HS [facility] Last Admin: 10/01/19 22:38 Dose: 800 mg Heparin Sodium (Porcine) (Heparin -) 5,000 unit SQ Q8H-IV [facility] Last Admin: 10/02/19 10:37 Dose: 5,000 unit Insulin Aspart (Novolog Vial Sliding Scale -) 1 vial SQ [facility]; Protocol Last Admin: 10/02/19 06:25 Dose: 6 unit Isosorbide Mononitrate (Imdur -) 30 mg PO DAILY [facility] Last Admin: 10/02/19 10:37 Dose: Not Given Metoprolol Tartrate (Lopressor -) 25 mg PO BID [facility] Last Admin: 10/02/19 10:37 Dose: Not Given Pantoprazole Sodium (Protonix -) 40 mg PO DAILY [facility] Last Admin: 10/02/19 10:37 Dose: 40 mg Quetiapine Fumarate (Seroquel -) 25 mg PO HS [facility] Last Admin: 10/01/19 22:38 Dose: 25 mg Ranolazine (Ranexa -) 500 mg PO BID [facility] Vital Signs Period Temp Pulse Resp BP Sys/Hand Pulse Ox Last 24 Hr 97.9 F-98.7 F 60-84 18-20 102-147/57-90 96-100 Constitutional: Yes: No Distress, Calm Eyes: Yes: Conjunctiva Clear Respiratory: Yes: Other (rales 1/3 up left) Gastrointestinal: Yes: Soft Cardiovascular: Yes: Regular Rate and Rhythm JVD: No Carotid Bruit: No PMI: Non-Displaced Heart Sounds: Yes: S1, S2 (RRR, no M/R/G) Edema: Yes Edema: LLE: 1+, RLE: 1+ NSR nonspecific ST/T tele: sinus, artifact echo 09/2019 nl LV/RV function, abnormal diastolic function, PASP 65 mmHG severe pulm HTN Imaging - Results Chest X-ray: Image Reviewed EKG: Image Reviewed Assessment/Plan IMP: Known CAD s/p MIs, multivessel PCIs, CABG with refractory CAD now with chest pain r/o [place] DM Chronic HTN pulm HTN REC: - trops negative x 2, EKG stable - unlikely ACS - Patient's coronary anatomy with severe distal disease, not amenable to further PCI. Was referred for transplant eval at [place]. Continue ASA/Plavix/ High dose statin, metoprolol, imdur - echo nl LV/RV function with severe pulm HTN - per pt was already on imdur at metoprolol for at least the last year - have been unable to uptitrate meds due to low BP - will start ranexa 500 mg BID, although history less consistent with cardiac chest pain -Try to avoid opiates as there is hx of opiate seeking behaviors. - cont medical management and have her f/u at [place] for further transplant eval , no further inpatient cardiac testing
--- NOTE | 2019-10-02 12:09 | DS ---
Physical Exam: SUBJECTIVE: Patient seen and examined. no events overnight. patient denied pain this am. OBJECTIVE: Vital Signs Period Temp Pulse Resp BP Sys/Hand Pulse Ox Last 24 Hr 97.9 F-98.7 F 60-84 18-20 102-147/57-88 96-100 PHYSICAL EXAM GENERAL: a/o x 3 HEAD: Normal with no signs of trauma. EYES: Pupils equal, round and reactive to light EARS, NOSE, THROAT: Moist mucous membranes. NECK:supple without lymphadenopathy, JVD, or masses. LUNGS: mild crackles at the base HEART: RRR, no murmurs appreciated ABDOMEN: Soft, nontender, not distended, normoactive bowel sounds LOWER EXTREMITIES: 2+ pulses, warm, No peripheral edema. NEUROLOGICAL: Cranial nerves II-XII intact LABS Laboratory Results - last 24 hr 10/01/19 10/01/19 10/01/19 10:50 13:02 13:02 WBC RBC Hgb Hct MCV MCH MCHC RDW Plt Count MPV Absolute Neuts (auto) Neutrophils % Lymphocytes % Monocytes % Eosinophils % Basophils % Nucleated RBC % Sodium Potassium Chloride Carbon Dioxide Anion Gap BUN Creatinine Est GFR (CKD-EPI)AfAm Est GFR (CKD-EPI)NonAf POC Glucometer Random Glucose Calcium Phosphorus Magnesium Total Bilirubin AST ALT Alkaline Phosphatase Creatine Kinase Creatine Kinase Index 1.3 CK-MB (CK-2) 2.2 Troponin I Total Protein Albumin TSH Urine HCG, Qual Negative Opiates Screen Positive A* Methadone Screen Negative Barbiturate Screen Negative Phencyclidine Screen Negative Ur Amphetamines Screen Negative MDMA (Ecstasy) Screen Negative Benzodiazepines Screen Negative Cocaine Screen Negative U Marijuana (THC) Screen Positive A* 10/01/19 10/01/19 10/01/19 14:19 17:29 17:35 WBC RBC Hgb Hct MCV MCH MCHC RDW Plt Count MPV Absolute Neuts (auto) Neutrophils % Lymphocytes % Monocytes % Eosinophils % Basophils % Nucleated RBC % Sodium Potassium Chloride Carbon Dioxide Anion Gap BUN Creatinine Est GFR (CKD-EPI)AfAm Est GFR (CKD-EPI)NonAf POC Glucometer 205 201 Random Glucose Calcium Phosphorus Magnesium Total Bilirubin AST ALT Alkaline Phosphatase Creatine Kinase 167 Creatine Kinase Index 1.2 CK-MB (CK-2) 2.1 Troponin I 0.02 Total Protein Albumin TSH Urine HCG, Qual Opiates Screen Methadone Screen Barbiturate Screen Phencyclidine Screen Ur Amphetamines Screen MDMA (Ecstasy) Screen Benzodiazepines Screen Cocaine Screen U Marijuana (THC) Screen 10/01/19 10/01/19 10/02/19 22:36 23:30 06:20 WBC RBC Hgb Hct MCV MCH MCHC RDW Plt Count MPV Absolute Neuts (auto) Neutrophils % Lymphocytes % Monocytes % Eosinophils % Basophils % Nucleated RBC % Sodium Potassium Chloride Carbon Dioxide Anion Gap BUN Creatinine Est GFR (CKD-EPI)AfAm Est GFR (CKD-EPI)NonAf POC Glucometer 191 260 Random Glucose Calcium Phosphorus Magnesium Total Bilirubin AST ALT Alkaline Phosphatase Creatine Kinase 144 Creatine Kinase Index CK-MB (CK-2) Troponin I 0.02 Total Protein Albumin TSH Urine HCG, Qual Opiates Screen Methadone Screen Barbiturate Screen Phencyclidine Screen Ur Amphetamines Screen MDMA (Ecstasy) Screen Benzodiazepines Screen Cocaine Screen U Marijuana (THC) Screen 10/02/19 10/02/19 10/02/19 06:54 06:54 12:00 WBC 6.3 RBC 3.65 Hgb 10.6 L Hct 32.0 L MCV 87.9 MCH 29.0 MCHC 33.0 RDW 17.6 H Plt Count 277 MPV 8.0 Absolute Neuts (auto) 3.9 Neutrophils % 62.6 Lymphocytes % 23.3 D Monocytes % 8.6 Eosinophils % 4.7 H Basophils % 0.8 Nucleated RBC % 0 Sodium 137 Potassium 3.9 Chloride 107 Carbon Dioxide 26 Anion Gap 4 L BUN 9.5 Creatinine 0.9 Est GFR (CKD-EPI)AfAm 92.05 Est GFR (CKD-EPI)NonAf 79.42 POC Glucometer 197 Random Glucose 178 H Calcium 8.2 L Phosphorus 3.0 Magnesium 1.9 Total Bilirubin 0.4 AST 18 ALT 32 Alkaline Phosphatase 54 Creatine Kinase Creatine Kinase Index CK-MB (CK-2) Troponin I Total Protein 6.4 Albumin 3.2 L TSH 0.82 Urine HCG, Qual Opiates Screen Methadone Screen Barbiturate Screen Phencyclidine Screen Ur Amphetamines Screen MDMA (Ecstasy) Screen Benzodiazepines Screen Cocaine Screen U Marijuana (THC) Screen HOSPITAL COURSE: Date of Admission:10/01/19 38 yo F with PMH of CAD (6 stents, triple bypass), multiple admissions for NSTEMI, CABG @ [facility] 11/06, CHF, HTN, HLD, gastritis, DM, CKD, anxiety, depression, and polysubstance use (THC, ecstasy), presenting with chest pain. #Chest Pain r/o ACS -trop neg x 3 -unlikely ACS per cardio -Patient's coronary anatomy with severe distal disease, not amenable to further PCI. Was referred for transplant eval at [facility]. Continue ASA/Plavix/ High dose statin, metoprolol, imdur - echo nl LV/RV function with severe pulm HTN - per pt was already on imdur at [facility] for at least the last year - have been unable to uptitrate meds due to low BP -will start ranexa 500 mg BID, although history less consistent with cardiac chest pain -Try to avoid opiates as there is hx of opiate seeking behaviors. -cont medical management and have her f/u at [facility] for further transplant eval, no further inpatient cardiac testing #DM -resume home meds at discharge #S CHF -resume home meds #Anxiety/Depression -resume seroquel #HTN/CAD -resume ASA -lopressor 25mg BID Date of Discharge: 10/02/19 Minutes to complete discharge: 35 Discharge Summary Problems reviewed: Yes Reason For Visit: CORONARY ARTERY DISEASE,CHEST PAIN Current Active Problems CAD (coronary artery disease) (Acute) Chest pain (Acute) Condition: Stable - Instructions Diet, Activity, Other Instructions: You were admitted because of chest pain. Please follow up with your primary care physician within 1 week. We have added a medication for you to take called Ranexa. Take 500mg twice a day. 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 You will need to talk with your centrifuge separator operator about Transplant evaluation. If you develop worsening chest pain or shortness of breath, go to your nearest emergency department. Referrals: Ashleigh Valencia MD [Primary Care Provider] - 1 Week Disposition: HOME - Home Medications Comprehensive Discharge Medication List: Ambulatory Orders Aspirin [Aspirin EC] 81 mg PO DAILY 11/13/15 Gabapentin 800 mg PO HS 05/06/18 Pantoprazole Sodium [Protonix] 40 mg PO DAILY 05/06/18 Quetiapine Fumarate [Seroquel -] 25 mg PO HS 05/06/18 Atorvastatin Ca [Lipitor] 80 mg PO HS tablet 11/07/18 Clopidogrel Bisulfate [Plavix -] 75 mg PO DAILY tablet 02/20/19 metFORMIN HCL [Metformin ER Gastric] 1,000 mg PO BID 03/01/19 Metoprolol Tartrate 25 mg PO BID 10/01/19 Ranolazine [Ranexa -] 500 mg PO BID #60 tab 10/02/19 This patient is new to me today: Yes Date on this admission: 10/02/19 Emergency Visit: Yes ED Registration Date: 10/01/19 Care time: The patient presented to the Emergency Department on the above date and was hospitalized for further evaluation of their emergent condition. Critical Care patient: No - Discharge Referral Referred to [facility] Med P.C.: No ATTENDING PHYSICIAN STATEMENT I saw and evaluated the patient. I reviewed the resident's note and discussed the case with the resident. I agree with the resident's findings and plan as documented. SUBJECTIVE: OBJECTIVE: ASSESSMENT AND PLAN:
--- NOTE | 2019-10-02 13:15 | PN ---
Teaching Attending Note Name of Resident: Joel Richards ATTENDING PHYSICIAN STATEMENT I saw and evaluated the patient. I reviewed the resident's note and discussed the case with the resident. I agree with the resident's findings and plan as documented. SUBJECTIVE: Seen and examined, feels well, no chest pain, no palpitations, wants to go home. OBJECTIVE: Vital Signs - 24 hr 10/01/19 10/01/19 10/01/19 13:36 20:01 21:10 Temperature Pulse Rate Pulse Rate [ 68 77 Apical] Respiratory 20 18 Rate Blood Pressure Blood Pressure 128/83 136/86 [Right Arm] O2 Sat by Pulse 100 98 96 Oximetry (%) 10/01/19 10/01/19 10/02/19 21:15 22:00 02:00 Temperature 98.5 F 98.5 F 98.2 F Pulse Rate 84 84 64 Pulse Rate [ Apical] Respiratory 18 18 18 Rate Blood Pressure 147/88 147/88 102/57 L Blood Pressure [Right Arm] O2 Sat by Pulse Oximetry (%) 10/02/19 10/02/19 06:00 09:45 Temperature 97.9 F 98.7 F Pulse Rate 60 66 Pulse Rate [ Apical] Respiratory 18 20 Rate Blood Pressure 108/69 107/69 Blood Pressure [Right Arm] O2 Sat by Pulse Oximetry (%) PE: Gen: NAD CVS: s1s2, rrr, no wrr Lungs: CTA bl, no w/r/r unlabored Abd: soft, ntnd, nabs Ext: no cce all labs, meds, studies reviewed ASSESSMENT: CAD s/p CABG Multivessel PCI's and severe distal disease DM2 HTN Hx polysubstance abuse Anxiety PLAN: trop negative c/w current meds, nitrate and ranexa added 2dechocardiogram report reviewed needs to [facility] outpatient- referred for heart transplant eval, not yet seen at [facility]
== END 2019-10-02 13:12 | disposition home or self-care (01) ==
LOC: JER 10:19 → JERBED 12:59 → J4W 21:13
PROVIDERS: ADMIT Internal Medicine; ATTEND Internal Medicine
PROC: 3E033NZ Introduction of Analgesics, Hypnotics, Sedatives into Peripheral Vein, Percutaneous Approach (ICD-10-PCS; principal; 2019-10-01)
PROC: 3E013VG Introduction of Insulin into Subcutaneous Tissue, Percutaneous Approach (ICD-10-PCS; 2019-10-01)
PROC: 3E013GC Introduction of Other Therapeutic Substance into Subcutaneous Tissue, Percutaneous Approach (ICD-10-PCS; 2019-10-01)
DX: R07.89 Other chest pain (principal); E11.22 Type 2 diabetes mellitus with diabetic chronic kidney disease; I13.0 Hypertensive heart and chronic kidney disease with heart failure and stage 1 through stage 4 chronic kidney disease, or unspecified chronic kidney disease; N18.9 Chronic kidney disease, unspecified; I50.9 Heart failure, unspecified; Z87.891 Personal history of nicotine dependence; Z79.84 Long term (current) use of oral hypoglycemic drugs; E78.5 Hyperlipidemia, unspecified; I25.10 Atherosclerotic heart disease of native coronary artery without angina pectoris; I25.2 Old myocardial infarction; F41.9 Anxiety disorder, unspecified; F32.9 Major depressive disorder, single episode, unspecified; F15.10 Other stimulant abuse, uncomplicated; F12.10 Cannabis abuse, uncomplicated; Z85.41 Personal history of malignant neoplasm of cervix uteri; Z88.1 Allergy status to other antibiotic agents; Z95.5 Presence of coronary angioplasty implant and graft; Z95.1 Presence of aortocoronary bypass graft; Z79.02 Long term (current) use of antithrombotics/antiplatelets; Z79.82 Long term (current) use of aspirin
CPT/HCPCS: 36415; 71046-TC-FY; 80053; 80307; 82550; 82553; 82962; 83735; 84100; 84443; 84484; 84703; 85025; 85610; 85730; 93005; 93010; 93306-TC; 96372; 96374; 96376; 99285-25; G0378; J1644

== ENCOUNTER 2020-06-08 11:14 | Inpatient (IN) | payer BC, OTHER ==
--- NOTE | 2020-06-08 11:40 | PDOC ---
Rapid Medical Evaluation Time Seen by Provider: 06/08/20 11:32 Medical Evaluation: Allergies Allergy/AdvReac Type Severity Reaction Status Date / Time cephalexin monohydrate Allergy Severe Hives Verified 10/01/19 10:26 [From Keflex] 06/08/20 11:35 Pt presents for L foot pain. Hx of diabetes taking metformin. Recent triple bipass. States she injured the foot over three months ago, but over the last week states the whole foot hurts to touch and she cannot put pressure on it. Notes the whole foot is swollen. Exam: Swelling noted to the L foot with discoloration to the toes and sole of the foot with old ulcerations noted. Diminished pedal pulses. TTP of gentle touch of foot. Orders: Labs, blood cx, x-ray, IV, EKG Pt to proceed to the ER for further evaluation Discharge Disposition - Diagnosis Foot pain Qualifiers: Laterality: left Qualified Code(s): M79.672 - Pain in left foot Diabetes mellitus Qualifiers: Diabetes mellitus type: type 2 Diabetes mellitus penitentiary insulin use: without penitentiary use Diabetes mellitus complication status: with other specified complication Qualified Code(s): E11.69 - Type 2 diabetes mellitus with other specified complication - Referrals - Patient Instructions - Post Discharge Activity
[2020-06-08 11:47] VITALS: BMI 26.6
--- OUTSIDE RECORDS SUMMARY | 2020-06-08 12:12 | XMS ---
:1980 Author Organization [facility] Support Name Relationship Address Phone UE Unavailable Unavailable Unavailable HERMINIA CAROLINA MOTHER [address] [phone] [place] [address] HERMINIA CAROLINA Mother [address] [place] [address] Re-disclosure Warning The records that you are about to access may contain information from federally- assisted alcohol or drug abuse programs. If such information is present, then the following federally mandated warning applies: This information has been disclosed to you from records protected by federal confidentiality rules (42 CFR part 2). The federal rules prohibit you from making any further disclosure of this information unless further disclosure is expressly permitted by the written consent of the person to whom it pertains or as otherwise permitted by 42 CFR part 2. A general authorization for the release of medical or other information is NOT sufficient for this purpose. The Federal rules restrict any use of the information to criminally investigate or prosecute any alcohol or drug abuse patient.The records that you are about to access may contain highly sensitive health information, the redisclosure of which is protected by Article 27-F of the [facility] Public Health law. If you continue you may haveaccess to information: Regarding HIV / AIDS; Provided by facilities licensed or operated by the [facility] Office of Mental Health; or Provided by the [facility] Office for People With Developmental Disabilities. If such information is present, then the following [facility] mandated warning applies: This information has been disclosed to you from confidential records which are protected by state law. State law prohibits you from making any further disclosure of this information without the specific written consent of the person to whom it pertains, or as otherwise permitted by law. Any unauthorized further disclosure in violation of state law may result in a fine or custodial sentence or both. A general authorization for the release of medical or other information is NOT sufficient authorization for further disclosure. Insurance Providers Payer name Policy type Policy ID Covered Covered constitution party's Policy P darshana / Coverage constitution party ID relationship to Silva Inf ormation type silva BLUE CROSS [id number] SP [id number] [facility] PLAN 03 MEDICARE [id number] SP [id number] MEDICARE [id number] SP [id number] A BC OUT OF [id number] SP [id number] [place] [id number] [place] OUT OF [id number] SP [id number] [facility] 60
[2020-06-08] MEDS ORDERED: VANCOMYCIN 1 GM in D5W (PRE-DOCKED) 1,000 MG/250 ML IVPB ONE (12:33)
[2020-06-08] MEDS ORDERED: MEROPENEM 500 MG in DEXTROSE 5%-WATER 100 ML IVPB ONE (12:33)
[2020-06-08] MEDS ORDERED: ACETAMINOPHEN 1000 MG/100 ML VIAL (NON FORMULARY) IVPB ONE (12:33)
[2020-06-08] MEDS ORDERED: SODIUM CHLORIDE 1,000 ML IV STA ×2 (12:33→19:29)
--- NOTE | 2020-06-08 12:47 | PDOC ---
History of Present Illness - General Chief Complaint: Pain Stated Complaint: LT FOOT SWOLLEN Time Seen by Provider: 06/08/20 11:32 History Source: Patient Exam Limitations: Clinical Condition - History of Present Illness Initial Comments: 06/08/20 12:41 Patient with past medical history of [id number] diabetes on metformin, CAD on Plavix, triple bypass few months ago, hyperlipidemia, hypertension presented with complaint of one-week history of persistent left foot pain right up to above ankle with swelling. Patient also reported multiple ulcers which has been healing to left foot. Denies fever, chills, weakness, nausea, vomiting. Patient reported increased pain to left foot with ambulation when she stepped on foot. Denies any trauma or injury to foot. Denies shortness of breath, chest pain. Patient has not taken anything for symptoms. Denies any other symptoms Is this a multiple visit Asthma Patient?: No Timing/Duration: 1 week Past History - Medical History Allergies/Adverse Reactions: Allergies Allergy/AdvReac Type Severity Reaction Status Date / Time cephalexin monohydrate Allergy Severe Hives Verified 06/08/20 11:41 [facility] Home Medications: Ambulatory Orders Aspirin [Aspirin EC] 81 mg PO DAILY 11/13/15 Gabapentin 800 mg PO HS 05/06/18 Pantoprazole Sodium [Protonix] 40 mg PO DAILY 05/06/18 Quetiapine Fumarate [Seroquel -] 25 mg PO HS 05/06/18 Atorvastatin Ca [Lipitor] 80 mg PO HS tablet 11/07/18 Clopidogrel Bisulfate [Plavix -] 75 mg PO DAILY tablet 11/07/18 metFORMIN HCL [Metformin ER Gastric] 1,000 mg PO BID 03/01/19 Metoprolol Tartrate 25 mg PO BID 10/01/19 Ranolazine [Ranexa -] 500 mg PO BID #60 tab 10/02/19 Anemia: No Asthma: No Cancer: Yes (cervical ca) Cardiac Disorders: Yes CVA: No COPD: No CHF: Yes DVT: No Dementia: No Diabetes: Yes GI Disorders: Yes (GASTROPARESIS) Disorders: No HTN: Yes Hypercholesterolemia: Yes Liver Disease: No Psychiatric Problems: Yes (anxiety) Seizures: No Thyroid Disease: No - Surgical History Abdominal Surgery: No Appendectomy: No Cardiac Surgery: Yes (5 stents//last on 08/03/18) Cholecystectomy: No Lung Surgery: No Neurologic Surgery: No Orthopedic Surgery: Yes (right ROTATOR CUFF REPAIR) - Reproductive History Is Patient Now?: No (#): 5 Para: 0 Cervical CA: Yes Dysfunctional Uterine Bleeding: Yes Ectopic : Yes Endometrial CA: Yes Therapeutic (s) & number: Yes (1) Spontaneous : 4 - Immunization History Immunization Up to Date: Yes - Psycho-Social/Smoking History Smoking Status: Yes (QUIT 3 MONTHS AGO) Smoking History: Current some day smoker Have you smoked in the past 12 months: Yes Number of Cigarettes Smoked Daily: 0 If you are a former smoker, when did you quit?: 12/20/17 Information on smoking cessation initiated: Yes 'Breaking Loose' booklet given: 03/01/19 - Substance Abuse Hx (Audit-C & DAST Scrn) How often the patient has a drink containing alcohol: Never Score: In Men: 4 or > Positive; In Women: 3 or > Positive: 0 Screen Result (Pos requires Nsg. Audit-10AR): Negative In the last yr the pt used illegal drug/Rx for NonMed reason: Yes Score: Yes response is considered Positive: 1 Screen Result (Positive result requires Nsg. DAST-10): Positive Review of Systems - Review of Systems Able to Perform ROS?: Yes Is the patient limited Setswana proficient: No Constitutional: No: Chills, Fever, Malaise HEENTM: No: Symptoms Reported, See HPI, Eye Pain, Blurred Vision, Tearing, Recent change in vision, Double Vision, Cataracts, Ear Pain, Ocular Prothesis, Ear Discharge, Nose Pain, Nose Congestion, Tinnitus, Nose Bleeding, Hearing Loss, Throat Pain, Throat Swelling, Mouth Pain, Dental Problems, Difficulty Swallowing, Mouth Swelling, Other Respiratory: No: Symptoms reported, See HPI, Cough, Orthopnea, Shortness of Breath, SOB with Exertion, SOB at Rest, Stridor, Wheezing, Productive cough, Hemoptysis, Other Cardiac (ROS): No: Symptoms Reported, Lightheadedness, Other ABD/GI: No: Symptoms Reported, Nausea, Vomiting Musculoskeletal: Yes: Symptoms Reported, See HPI, Joint Swelling (left foot and leg), Muscle Pain (left leg pain) Integumentary: Yes: Symptoms Reported, See HPI, Change in Color (left foot) Neurological: No: Numbness, Tingling All Other Systems: Reviewed and Negative *Physical Exam - Vital Signs Last Vital Signs Temp Pulse Resp BP Pulse Ox 98.6 F 99 H 18 148/76 100 06/08/20 11:32 06/08/20 11:32 06/08/20 11:32 06/08/20 11:32 06/08/20 11:32 - Physical Exam 06/08/20 12:48 GENERAL: Well developed, well nourished. Awake and alert in moderate acute distress. CARDIOVASCULAR: Regular rate and rhythm. No murmurs, rubs, or gallops. PULMONARY: No evidence of respiratory distress. Lungs clear to auscultation bilaterally. No wheezing, rales or rhonchi. MUSCULOSKELETAL : severe tenderness to light touch to right foot from above ankle to rest of the foot with multiple area of healing ulcers to right lower leg and plantar aspect of right foot. EXTREMITIES: severe tenderness to light touch to left foot from above ankle to rest of the foot with multiple area of healing ulcers to left lower leg and plantar aspect of left foot. No open wound. Dark discoloration of the skin of left lower leg and foot consistent with arterial insufficiency. Decreased pulses to posterior tibial on left side. Normal sensory to lower extremity. Mild pitting edema to right lower leg and foot. SKIN: Warm and dry. NEUROLOGICAL: Alert, awake, appropriate. No motor deficits in the lower extremities. Gait is normal without ataxia. PSYCHIATRIC: Cooperative. Good eye contact. Appropriate mood and affect. General Appearance: Yes: Nourished, Appropriately Dressed, Apparent Distress ED Treatment Course - LABORATORY CBC & Chemistry Diagram: 06/08/20 12:45 06/08/20 14:45 Medical Decision Making - Medical Decision Making 06/08/20 12:43 Patient with past medical history of [id number] diabetes on metformin, CAD on Plavix, triple bypass few months ago, hyperlipidemia, hypertension presented with complaint of one-week history of persistent left foot pain right up to above ankle with swelling. Patient also reported multiple ulcers which has been healing to left foot. Denies fever, chills, weakness, nausea, vomiting. Patient reported increased pain to left foot with ambulation when she stepped on foot. Denies any trauma or injury to foot. Denies sh ortness of breath, chest pain. Patient has not taken anything for symptoms. Denies any other symptoms Exam significant for severe tenderness to light touch to left foot from above ankle to rest of the foot with multiple area of healing ulcers to left lower leg and plantar aspect of left foot. No open wound. Dark discoloration of the skin of left lower leg and foot consistent with arterial insufficiency. Decreased pulses to posterior tibial on left side. Normal sensory to lower extremity. Mild pitting edema to left lower leg and foot. Patient symptoms likely arterial insufficiency versus osteomyelitis versus less likely thrombosis. CBC, blood culture, chemistry, PT labs ordered. X-ray of right foot ordered to rule out osteomyelitis. Arterial and venous duplex ordered to rule out thrombosis or evaluate for PAD. Tylenol 1 g IV ordered for pain. Will start empirically on Vanco and meropenem IV antibiotics pending lab result 06/08/20 14:27 Foot x-ray significant for TufT deformity of left great toe with possible osteomyelitis. Chest x-ray shows no acute abnormality. CBC and chemistry lab normal. Patient pending arterial and venous duplex 06/08/20 15:28 Arterial Doppler shows abnormal flow to the distal posterior tibial and popliteal with no arterial complete occlusion. Venous duplex shows no DVT. Patient accepted for admission to medicine team under Dr. Fish and is being seen by resident physician Dr. Dumas. Admission order placed for admission Discharge - Discharge Information Problems reviewed: Yes Clinical Impression/Diagnosis: S/P coronary artery stent placement Diabetes mellitus Qualifiers: Diabetes mellitus type: type 2 Diabetes mellitus skilled nursing insulin use: without intermediate school teacher use Diabetes mellitus complication status: with other specified complication Qualified Code(s): E11.69 - Type 2 diabetes mellitus with other specified complication Coronary artery disease Qualifiers: Coronary Disease-Associated Artery/Lesion type: unspecified vessel or lesion type [place] vs. transplanted heart: [place] heart Associated angina: without angina Qualified Code(s): I25.10 - Atherosclerotic heart disease of [place] coronary artery without angina pectoris Foot osteomyelitis, right Qualifiers: Osteomyelitis type: unspecified type Qualified Code(s): M86.9 - Osteomyelitis, unspecified Condition: Stable - Admission Yes - Follow up/Referral Referrals: Ashleigh Valencia MD [Primary Care Provider] - - Patient Discharge Instructions - Post Discharge Activity
[2020-06-08 13:35] LABS: BASO % 0.6 % (0-2.0); EOS % 1.8 % (0-4.5); HEMATOCRIT 34.1 % (32.4-45.2); HEMOGLOBIN 11.5 GM/dL (10.7-15.3); LYMPH % 10.8 % (8-40); MCH 28.9 pg (25.7-33.7); MCHC 33.6 g/dl (32.0-36.0); MEAN CELL VOLUME 86.2 fl (80-96); MEAN PLT VOLUME 8.1 fl (7.5-11.1); MONO % 6.1 % (3.8-10.2); NEUT % 80.7 % (42.8-82.8); PLATELET COUNT 490 K/MM3 (134-434); RBC 3.96 M/mm3 (3.60-5.2)
[2020-06-08 13:41] LABS: INR 1.02 (0.83-1.09)
[2020-06-08] MEDS ORDERED: ACETAMINOPHEN INJECTION 100 ML IVPB ONE (13:52)
[2020-06-08] MEDS ORDERED: MEROPENEM 500 MG VIAL (RESTRICTED TO ID) IVPB ONE (13:52)
[2020-06-08] MEDS ORDERED: VANCOMYCIN 1 GRAM (PRE-DOCKED) 1,000 MG/250 ML BAG IVPB ONE (15:24)
[2020-06-08 15:35] LABS: ALBUMIN 3.7 g/dl (3.4-5.0); BILIRUBIN,TOTAL 0.4 mg/dL (0.2-1); CALCIUM 9.4 mg/dL (8.5-10.1); CREATININE 0.9 mg/dL (0.55-1.3); POTASSIUM 4.5 mmol/L (3.5-5.1); TOT PROT 7.6 g/dl (6.4-8.2)
[2020-06-08] MEDS: INSULIN SLIDING SCALE (NOVOLOG) 1 VIAL SQ SCH (16:13)
[2020-06-08] MEDS: SODIUM CHLORIDE 1,000 ML IV SCH (16:13)
--- NOTE | 2020-06-08 16:13 | HP ---
CHIEF COMPLAINT: left foot pain PCP: HISTORY OF PRESENT ILLNESS: Patient is a 40 yo F with PMH of CAD (6 stents, triple bypass), multiple admissions for NSTEMI, CABG @ [facility] 11/06, CHF, HTN, HLD, gastritis, DM, CKD, anxiety, depression, and polysubstance use (THC, ecstasy) who presents for left foot pain. patient states before COVID she was walkign and hit her foot. More recently her foot has been hurting to the point where she cannot walk. Her foot is swollen and tender to touch, she did not note any cuts. Patient denies fever, chills, nausea, vomiting. She reports she had her vascular looked at before COVID and was told everything is normal. She denies family history. States she is compliant with her meds. ER course was notable for: (1) (2) (3) Recent Travel: denies PAST MEDICAL HISTORY: PMH of CAD (6 stents, triple bypass), multiple admissions for NSTEMI, CABG @ [facility] 11/06, CHF, HTN, HLD, gastritis, DM, CKD, anxiety, depression, and polysubstance us PAST SURGICAL HISTORY: R knee, CABG Social History: Smoking: quit a year ago Alcohol: denies Drugs: marijuana, on and off ectasy Allergies cephalexin monohydrate [From Keflex] Allergy (Severe, Verified 06/08/20 11:41) Hives HOME MEDICATIONS: Home Medications Medication Instructions Recorded Aspirin [Aspirin EC] 81 mg PO DAILY 11/13/15 Gabapentin 800 mg PO HS 05/06/18 Pantoprazole Sodium [Protonix] 40 mg PO DAILY 05/06/18 Quetiapine Fumarate [Seroquel -] 25 mg PO HS 05/06/18 Atorvastatin Ca [Lipitor] 80 mg PO HS tablet 11/07/18 Clopidogrel Bisulfate [Plavix -] 75 mg PO DAILY tablet 11/07/18 metFORMIN HCL [Metformin ER 1,000 mg PO BID 03/01/19 Gastric] Metoprolol Tartrate 25 mg PO BID 10/01/19 Ranolazine [Ranexa -] 500 mg PO BID #60 tab 10/02/19 REVIEW OF SYSTEMS CONSTITUTIONAL: Absent: fever, chills, diaphoresis, generalized weakness, malaise, loss of appetite, weight change HEENT: Absent: rhinorrhea, nasal congestion, throat pain, throat swelling, difficulty swallowing, mouth swelling, ear pain, eye pain, visual changes CARDIOVASCULAR: Absent: chest pain, syncope, palpitations, irregular heart rate, lightheadedness, peripheral edema RESPIRATORY: Absent: cough, shortness of breath, dyspnea with exertion, orthopnea, wheezing, stridor, hemoptysis GASTROINTESTINAL: Absent: abdominal pain, abdominal distension, nausea, vomiting, diarrhea, constipation, melena, hematochezia GENITOURINARY: Absent: dysuria, frequency, urgency, hesitancy, hematuria, flank pain, genital pain MUSCULOSKELETAL: arthralgia, joint swelling, Absent: myalgia, back pain, neck pain SKIN: Absent: rash, itching, pallor HEMATOLOGIC/IMMUNOLOGIC: Absent: easy bleeding, easy bruising, lymphadenopathy, frequent infections NEUROLOGIC: Absent: headache, focal weakness or paresthesias, dizziness, u PSYCHIATRIC: Absent: anxiety, depression, suicidal or homicidal ideation, hallucinations. PHYSICAL EXAMINATION Vital Signs - 24 hr 06/08/20 11:32 Temperature 98.6 F Pulse Rate 99 H Respiratory 18 Rate Blood Pressure 148/76 O2 Sat by Pulse 100 Oximetry (%) GENERAL: Awake, alert, and fully oriented, in no acute distress. HEAD: Normal with no signs of trauma. EYES: Pupils equal, round and reactive to light, extraocular movements intact EARS, NOSE, THROAT: Moist mucous membranes. LUNGS: Breath sounds equal, clear to auscultation bilaterally. No wheezes, and no crackles. No accessory muscle use. HEART: Regular rate and rhythm, normal S1 and S2 without murmur, rub or gallop. ABDOMEN: Soft, nontender, not distended, normoactive bowel sounds, MUSCULOSKELETAL: Normal range of motion at all joints. LOWER EXTREMITIES: diminished pulses over left foot, left foot swollen, pulses 2+ over right foot PSYCHIATRIC: Cooperative. Good eye contact. Appropriate mood and affect. SKIN: ulceration between third and fourth toe, minimal erythema, no pus ntoed, mild erythema generally over total foot, medial ulcer CBC, BMP 06/08/20 12:45 06/08/20 14:45 ASSESSMENT/PLAN: Patient is a 40 yo F with PMH of CAD (6 stents, triple bypass), multiple admissions for NSTEMI, CABG @ [facility] 11/06, CHF, HTN, HLD, gastritis, DM, CKD, anxiety, depression, and polysubstance use (THC, ecstasy) who presents for left foot pain. #Left foot pain - r/o osteo vs cellulitis vs ischemic limb - given Vanc and Ertapenem in ED, patient allergic to Keflex - consulted Bobde - MRI w cotrast of left foot - NS - XRAy: no evidence of osteo, duplex no clots - consulted podiatry and vascular - oxy and tylenol prn for pain - f/u CTA of lower extremity, hep drip, discuss with vascular #DM - started levemir 5 bid - SS - Bgm - continue gabapentin for neuropathy #CAD, hx CABG - continue ASA, clopidogrel, metoprolol - ECHO 09/2019: EF 59%, LV normal, abnormal diastolic relaxation, right ventricular systolic fxn normal #DVT ppx - Lovenox 40 sq daily FEN - NS - diabetic diet Dispo: monitor on med surg Family Medical History Family History: As Documented Visit type - Emergency Visit Emergency Visit: Yes ED Registration Date: 06/08/20 Care time: The patient presented to the Emergency Department on the above date and was hospitalized for further evaluation of their emergent condition. - New Patient This patient is new to me today: Yes Date on this admission: 06/10/20 - Critical Care Critical Care patient: No ATTENDING PHYSICIAN STATEMENT I saw and evaluated the patient. I reviewed the resident's note and discussed the case with the resident. I agree with the resident's findings and plan as documented. SUBJECTIVE: OBJECTIVE: ASSESSMENT AND PLAN:
[2020-06-08] MEDS ORDERED: oxyCODONE HCL 5 MG TABLET ONE (18:08)
[2020-06-08] MEDS: oxyCODONE HCL 5 MG TABLET PO PRN (18:09)
[2020-06-08] MEDS ORDERED: HEPARIN NA (PORCINE) 5,000 UNITS/ML 1ML VIAL IVPUSH PRN (19:30)
[2020-06-08] MEDS ORDERED: HEPARIN INFUSION - 25,000 UNITS/500 ML INFUS.BAG IVPB ONE (19:43)
[2020-06-08] MEDS: HEPARIN - 25,000 UNIT in SODIUM CHLORIDE 495 ML IV SCH (20:38)
--- NOTE | 2020-06-08 21:30 | PN ---
Teaching Attending Note Name of Resident: Ashleigh Dumas ATTENDING PHYSICIAN STATEMENT I saw and evaluated the patient. I reviewed the resident's note and discussed the case with the resident. I agree with the resident's findings and plan as documented. SUBJECTIVE: Patient seen and examined at bedside, endorses L foot pain x5 days, endorses toes getting more dusky in appearance accompanied by severe pain. Highly suspicious for LLE arterial ischemia/occlusion, patient started on Heparin gtt, and sent for CTA of B/L lower extremities, Vascular surgery aware. OBJECTIVE: GA mild distress, smells of cigarette smoke, AAOx3 HEENT dry MM, no JVD, poor dentition, neck supple, no carotid bruits appreciated Chest CTAB, no crackles or wheezing CVS s1, S2+, RRR Abd Soft, NT, ND, BS+, no audible abdominal bruits Ext cold LLE with dusky/discolored toes, LLE pedal pulses not appreciable, LLE 1-5 metatarsals significantly TTP, RLE warm with good perfusion weak pulse RLE Vital Signs (72 hours) 06/08/20 11:32 Temperature 98.6 F Pulse Rate 99 H Respiratory 18 Rate Blood Pressure 148/76 O2 Sat by Pulse 100 Oximetry (%) Laboratory Results - last 24 hr 06/08/20 06/08/20 06/08/20 12:45 12:45 12:45 WBC 9.0 RBC 3.96 Hgb 11.5 Hct 34.1 MCV 86.2 MCH 28.9 MCHC 33.6 RDW 18.0 H Plt Count 490 H D MPV 8.1 Absolute Neuts (auto) 7.3 Neutrophils % 80.7 D Lymphocytes % 10.8 D Monocytes % 6.1 Eosinophils % 1.8 Basophils % 0.6 Nucleated RBC % 0 PT with INR 12.00 INR 1.02 Sodium Cancelled Potassium Cancelled Chloride Cancelled Carbon Dioxide Cancelled Anion Gap Cancelled BUN Cancelled Creatinine Cancelled Est GFR (CKD-EPI)AfAm Cancelled Est GFR (CKD-EPI)NonAf Cancelled Random Glucose Cancelled Lactic Acid Calcium Cancelled Total Bilirubin Cancelled AST Cancelled ALT Cancelled Alkaline Phosphatase Cancelled Total Protein Cancelled Albumin Cancelled Triglycerides Cholesterol Total LDL Cholesterol HDL Cholesterol 06/08/20 06/08/20 12:48 14:45 WBC RBC Hgb Hct MCV MCH MCHC RDW Plt Count MPV Absolute Neuts (auto) Neutrophils % Lymphocytes % Monocytes % Eosinophils % Basophils % Nucleated RBC % PT with INR INR Sodium 136 Potassium 4.5 Chloride 103 Carbon Dioxide 29 Anion Gap 4 L BUN 9.0 Creatinine 0.9 Est GFR (CKD-EPI)AfAm 91.40 Est GFR (CKD-EPI)NonAf 78.86 Random Glucose 174 H Lactic Acid 1.0 Calcium 9.4 Total Bilirubin 0.4 AST 12 L ALT 15 Alkaline Phosphatase 54 Total Protein 7.6 Albumin 3.7 Triglycerides 87 Cholesterol 122 Total LDL Cholesterol 60 HDL Cholesterol 52 Home Medications Medication Instructions Recorded Aspirin [Aspirin EC] 81 mg PO DAILY 11/13/15 Gabapentin 800 mg PO HS 05/06/18 Pantoprazole Sodium [Protonix] 40 mg PO DAILY 05/06/18 Quetiapine Fumarate [Seroquel -] 25 mg PO HS 05/06/18 Atorvastatin Ca [Lipitor] 80 mg PO HS tablet 11/07/18 Clopidogrel Bisulfate [Plavix -] 75 mg PO DAILY tablet 11/07/18 metFORMIN HCL [Metformin ER 1,000 mg PO BID 03/01/19 Gastric] Metoprolol Tartrate 25 mg PO BID 10/01/19 Ranolazine [Ranexa -] 500 mg PO BID #60 tab 10/02/19 Current Medications Generic Name Dose Route Start Last Admin Trade Name Freq PRN Reason Stop Dose Admin Acetaminophen 650 mg 06/08/20 15:33 Tylenol - PO Q4H PRN PAIN LEVEL 4 - 6 Aspirin 81 mg 06/09/20 10:00 Ecotrin - PO DAILY NAKIA Atorvastatin Calcium 80 mg 06/08/20 22:00 Lipitor - PO HS NAKIA Clopidogrel Bisulfate 75 mg 06/09/20 10:00 Plavix - PO DAILY NAKIA Gabapentin 800 mg 06/08/20 22:00 Neurontin - PO HS NAKIA Heparin Sodium (Porcine) 1,000 unit 06/08/20 19:30 Heparin - IVPUSH PRN PRN Heparin Heparin Sodium (Porcine) 5,000 unit 06/08/20 19:30 Heparin - IVPUSH PRN PRN Heparin Sodium Chloride 1,000 mls @ 83 mls/hr 06/08/20 15:45 06/08/20 16:13 Normal Saline - IV 83 mls/hr ASDIR NAKIA Administration Meropenem 1 gm/ Dextrose 100 mls @ 200 mls/hr 06/09/20 12:30 IVPB 06/09/20 12:59 ONCE ONE Heparin Sodium (Porcine) 25, 500 mls @ 16 mls/hr 06/08/20 19:30 06/08/20 20:3 8 000 unit/ Sodium Chloride IV 800 unit/hr TITR NAKIA 16 mls/hr Administration Protocol 800 UNIT/HR Insulin Aspart 1 vial 06/08/20 16:30 06/08/20 16:13 Novolog Vial Sliding Scale - SQ 2 unit TIDAC [facility] Administration Protocol Insulin Detemir 5 units 06/08/20 22:00 Levemir Vial SQ BID@0700,2200 [facility] Metoprolol Tartrate 25 mg 06/08/20 22:00 Lopressor - PO BID NAKIA Oxycodone HCl 5 mg 06/08/20 15:33 06/08/20 18:09 Roxicodone - PO 5 mg Q6H PRN Administration PAIN LEVEL 7 - 10 Pantoprazole Sodium 40 mg 06/09/20 10:00 Protonix - PO DAILY NAKIA Quetiapine Fumarate 25 mg 06/08/20 22:00 Seroquel - PO HS NAKIA Ranolazine 500 mg 06/08/20 22:00 Ranexa - PO BID NAKIA Vancomycin HCl 1,000 mg 06/09/20 00:00 Vancomycin (Pre-Docked) IVPB BID [facility] Protocol Vancomycin HCl 1,000 mg 06/09/20 00:00 Vancomycin (Pre-Docked) IVPB 06/09/20 12:01 Q12H [facility] ASSESSMENT AND PLAN: 40 F Suspected LLE arterial occlusion Uncontrolled T2DM Extensive CAD history with multiple stents in the past HTN HLD Active smoker Mood disorder Diabetic neuropathy with venous stasis ulcer Plan: Heparin gtt, urgent CTA of aorta w/ runoff, high intensity statin, cont. Plavix Supplement PPI Cont. Vancomycin/Meropenem (cephalosporin allergy) Aggressive IVF after contrast Vascular surgery (Dr. Vera) aware of suspected occlusion recommended CTA Send lactic acid/CPK/repeat trops Tele monitoring Strict glycemic control keep <180 Opioids for pain control DVT ppx: Heparin gtt
[2020-06-08] MEDS: ACETAMINOPHEN 325 MG TABLET (FP) PO PRN (21:33)
[2020-06-08] MEDS: ATORVASTATIN CA 80 MG TABLET (FP) PO SCH (21:34)
[2020-06-08] MEDS: GABAPENTIN 400 MG CAPSULE PO SCH (21:34)
[2020-06-08] MEDS: RANOLAZINE E.R. 500 MG TABLET (FP) PO SCH (21:34)
[2020-06-08] MEDS: INSULIN (LEVEMIR) 100 UNITS/ML UNITS SQ SCH (21:35)
[2020-06-08] MEDS: QUEtiapine FUMARATE 25 MG TABLET PO SCH (21:35)
[2020-06-08] MEDS: METOPROLOL TARTRATE 25 MG TABLET (FP) PO SCH (21:35)
[2020-06-09] MEDS ORDERED: VANCOMYCIN 1 GM in D5W (PRE-DOCKED) 1,000 MG/250 ML IVPB SCH
[2020-06-09] MEDS: oxyCODONE HCL 5 MG TABLET PO PRN ×4 (00:03→22:45)
[2020-06-09] MEDS: VANCOMYCIN 1 GM in D5W (PRE-DOCKED) 1,000 MG/250 ML IVPB SCH ×2 (00:05→12:07)
[2020-06-09] MEDS: HEPARIN NA (PORCINE) 5,000 UNITS/ML 1ML VIAL IVPUSH PRN ×2 (01:07→22:25)
[2020-06-09] MEDS: INSULIN SLIDING SCALE (NOVOLOG) 1 VIAL SQ SCH ×3 (06:27→17:26)
[2020-06-09] MEDS: INSULIN (LEVEMIR) 100 UNITS/ML UNITS SQ SCH ×2 (06:27→22:20)
[2020-06-09 07:53] LABS: BASO % 0.4 % (0-2.0); EOS % 3.3 % (0-4.5); HEMATOCRIT 29.1 % (32.4-45.2); HEMOGLOBIN 9.8 GM/dL (10.7-15.3); LYMPH % 29.8 % (8-40); MCH 29.3 pg (25.7-33.7); MCHC 33.7 g/dl (32.0-36.0); MEAN PLT VOLUME 7.8 fl (7.5-11.1); MONO % 11.9 % (3.8-10.2); NEUT % 54.6 % (42.8-82.8); PLATELET COUNT 353 K/MM3 (134-434); RBC 3.34 M/mm3 (3.60-5.2); RDW 17.5 % (11.6-15.6)
[2020-06-09 08:22] LABS: ALBUMIN 2.9 g/dl (3.4-5.0); BILIRUBIN,TOTAL 0.4 mg/dL (0.2-1); BLOOD UREA NITROGEN 6.8 mg/dL (7-18); CALCIUM 8.3 mg/dL (8.5-10.1); CREATININE 0.7 mg/dL (0.55-1.3); POTASSIUM 3.8 mmol/L (3.5-5.1); TOT PROT 6.2 g/dl (6.4-8.2)
[2020-06-09] MEDS: PANTOPRAZOLE 40 MG TABLET PO SCH (09:00)
[2020-06-09] MEDS: RANOLAZINE E.R. 500 MG TABLET (FP) PO SCH ×2 (09:00→22:22)
[2020-06-09] MEDS: CLOPIDOGREL BISULFATE 75 MG TABLET (FP) PO SCH (09:00)
[2020-06-09] MEDS: METOPROLOL TARTRATE 25 MG TABLET (FP) PO SCH ×2 (09:00→22:18)
[2020-06-09] MEDS ORDERED: ACETAMINOPHEN 1000 MG/100 ML VIAL (NON FORMULARY) IVPB PRN (09:09)
--- NOTE | 2020-06-09 09:43 | EKG ---
Test Reason : Blood Pressure : / mmHG Vent. Rate : 059 BPM Atrial Rate : 059 BPM P-R Int : 156 ms QRS Dur : 094 ms QT Int : 420 ms P-R-T Axes : 035 022 134 degrees QTc Int : 415 ms SINUS BRADYCARDIA POSSIBLE LEFT ATRIAL ENLARGEMENT LOW VOLTAGE QRS T WAVE ABNORMALITY, CONSIDER LATERAL ISCHEMIA ABNORMAL ECG WHEN COMPARED WITH ECG OF 02-OCT-2019 07:29, NONSPECIFIC T WAVE ABNORMALITY HAS REPLACED INVERTED T WAVES IN ANTERIOR LEADS Confirmed by Bakari Medina ([id number]) on 06/09/2020 9:42:57 AM Referred By: Confirmed By:Bakari Medina
[2020-06-09] MEDS ORDERED: ENOXAPARIN NA (PORCINE) 40 MG/0.4 ML DISP.SYRIN SQ SCH (10:00)
[2020-06-09] MEDS ORDERED: ASPIRIN COATED 81 MG TABLET.EC PO SCH (10:00)
[2020-06-09] MEDS: SODIUM CHLORIDE 1,000 ML IV SCH ×2 (10:11→15:50)
[2020-06-09] MEDS: HEPARIN - 25,000 UNIT in SODIUM CHLORIDE 495 ML IV SCH ×2 (10:37→22:26)
--- NOTE | 2020-06-09 12:11 | CONSULT ---
Consult - text type - Consultation Consultation Note: Podiatry Consultation: 40 year old diabetic CAD female presented for admission with intractable left foot pain over several weeks duration. Patient denies trauma to the left foot. She endorses sharp, stabbing, burning sensations from the lower leg throughout the foot. She was having trouble putting weight on the foot and walking, which prompted admission. She denies F/V/N/C/SOB/CP. Currently afebrile. PMHx: CAD (6 stents, triple bypass), multiple admissions for NSTEMI, CABG @ [facility] 11/06, CHF, HTN, HLD, gastritis, DM, CKD, anxiety, depression, and polysubstance use (THC, ecstasy) Meds: noted in chart ALL: cephalexin HARRISON: L foot: pedal pulses nonpalpable, TG wnl, CFT about 4 seconds to all digits. There is some skin mottling and discoloration from the plantar heel to the plantar forefoot. No gangrenous changes to the foot. There is a small digital diabetic ulcer lateral aspect of the third digit with mixed fibrogranular base, dry eschar present. There is no probing to bone, no purulent drainage, no fluctuance, no streaking ascending cellulitis, no signs of acute infection. Significant tenderness to palpation. L foot XR: negative for osteomyelitis Imp: 40 year old diabetic female with left third digit arterial diabetic ulcer, likely PAD 1. Abx per infectious disease 2. Local care with mupirocin and dry gauze to the third digit daily 3. Needs vascular consultation. Results of CTA pending. 4. No acute podiatric intervention required. Can f/u in wound healing center as outpatient. [phone] 5. Thank you for the courtesy of this consultation.
[2020-06-09] MEDS ORDERED: MEROPENEM 1 GM in DEXTROSE 5%-WATER 100 ML IVPB ONE (12:30)
--- NOTE | 2020-06-09 13:55 | CON.ID ---
Consult Consult Specialty:: infectious diseases - Past Medical History Cardio/Vascular: Yes: CAD, CHF, HTN, NM, Hyperlipdemia, Other Pulmonary: Yes: Bronchitis Gastrointestinal: Yes: Gastritis, Other (Gastroparesis). No: Ascites, Cancer, Constipation, Crohn's Disease, Diverticulitis, Diverticulosis, Esophageal Varices, GERD, GI Bleed, Hemorrhoids, Hiatal Hernia, Inflamatory Bowel Disease, Irritable Bowel Disease, Pancreatitis, Peptic Ulcer Disease, Ulcerative Colitis Renal/: Yes: Renal Inusuff ...LMP: 06/02/20 ...: No Psych: Yes: Anxiety, Depression, Panic, Other Musculoskeletal: Yes: Other Endocrine: Yes: Diabetes Mellitus - Past Surgical History Past Surgical History: Yes: , Stent, Colonoscopy, Upper Endoscopy, CABG - Alcohol/Substance Use Hx Alcohol Use: No History of Substance Use: reports: Marijuana, Prescription Date of Last Use: 10/07/17 (ecstasy) - Smoking History Smoking history: Former smoker Have you smoked in the past 12 months: No Aproximately how many cigarettes per day: 0 If you are a former smoker, when did you quit?: 12/20/17 - Social History Usual Living Arrangement: Other (with boyfriend) ADL: Independent History of Recent Travel: No Home Medications - Allergies Allergies/Adverse Reactions: Allergies Allergy/AdvReac Type Severity Reaction Status Date / Time cephalexin monohydrate Allergy Severe Hives Verified 06/08/20 11:41 [From Balaya] - Home Medications Home Medications: Ambulatory Orders Aspirin [Aspirin EC] 81 mg PO DAILY 11/13/15 Gabapentin 800 mg PO HS 05/06/18 Pantoprazole Sodium [Protonix] 40 mg PO DAILY 05/06/18 Quetiapine Fumarate [Seroquel -] 25 mg PO HS 05/06/18 Atorvastatin Ca [Lipitor] 80 mg PO HS tablet 11/07/18 Clopidogrel Bisulfate [Plavix -] 75 mg PO DAILY tablet 11/07/18 metFORMIN HCL [Metformin ER Gastric] 1,000 mg PO BID 03/01/19 Metoprolol Tartrate 25 mg PO BID 10/01/19 Ranolazine [Ranexa -] 500 mg PO BID #60 tab 10/02/19 Physical Exam Vital Signs: Vital Signs Temperature 98.1 F 06/09/20 09:35 Pulse Rate 67 06/09/20 09:35 Respiratory Rate 18 06/09/20 09:35 Blood Pressure 118/68 06/09/20 09:35 O2 Sat by Pulse Oximetry (%) 100 06/09/20 10:00 Labs: CBC, BMP 06/09/20 06:18 06/09/20 06:18
[2020-06-09] MEDS ORDERED: DEXTROSE 5%-WATER 100 ML IVPB ONE (14:04)
[2020-06-09] MEDS ORDERED: MEROPENEM 1 GM VIAL (RESTRICTED TO ID) IVPB ONE (14:04)
--- NOTE | 2020-06-09 16:19 | PN ---
Teaching Attending Note Name of Resident: Duy Marie ATTENDING PHYSICIAN STATEMENT I saw and evaluated the patient. I reviewed the resident's note and discussed the case with the resident. I agree with the resident's findings and plan as documented. SUBJECTIVE: Complains of L foot swelling and pain, preventing her from weight bearing. OBJECTIVE: Afebrile, Hemodynamically Stable. Last Vital Signs Temp Pulse Resp BP Pulse Ox 97.7 F 64 18 121/71 100 06/09/20 14:30 06/09/20 14:30 06/09/20 14:30 06/09/20 14:30 06/09/20 10:00 HEENT - Atraumatic, Normocephalic. Heart - S1, S2, RRR Lungs - clear to auscultation Abdomen - Soft, non-tender. Bowel Sounds normal. Extremities - Cool extremities, pulses not palpable. LLE mid-petit ulcer medial aspect and L third digit ulcer with toe discoloration and discoloration on plantar aspect L foot. Neuro - AAO x 3. Tone/Power normal Laboratory Results - last 24 hr 06/08/20 06/08/20 06/08/20 12:45 22:50 22:50 WBC RBC Hgb Hct MCV MCH MCHC RDW Plt Count MPV Absolute Neuts (auto) Neutrophils % Lymphocytes % Monocytes % Eosinophils % Basophils % Nucleated RBC % PTT (Actin FS) Sodium Potassium Chloride Carbon Dioxide Anion Gap BUN Creatinine Est GFR (CKD-EPI)AfAm Est GFR (CKD-EPI)NonAf POC Glucometer Random Glucose Hemoglobin A1c % Lactic Acid 1.2 Calcium Total Bilirubin AST ALT Alkaline Phosphatase Creatine Kinase 110 Total Protein Albumin TSH COVID-19 (EFREN) Not detected 06/08/20 06/09/20 06/09/20 22:50 05:35 06:18 WBC 5.0 RBC 3.34 L Hgb 9.8 L Hct 29.1 L MCV 87.0 MCH 29.3 MCHC 33.7 RDW 17.5 H Plt Count 353 D MPV 7.8 Absolute Neuts (auto) 2.7 Neutrophils % 54.6 D Lymphocytes % 29.8 D Monocytes % 11.9 H D Eosinophils % 3.3 D Basophils % 0.4 Nucleated RBC % 0 PTT (Actin FS) 38.9 H Sodium Potassium Chloride Carbon Dioxide Anion Gap BUN Creatinine Est GFR (CKD-EPI)AfAm Est GFR (CKD-EPI)NonAf POC Glucometer 180 Random Glucose Hemoglobin A1c % Lactic Acid Calcium Total Bilirubin AST ALT Alkaline Phosphatase Creatine Kinase Total Protein Albumin TSH COVID-19 (EFREN) 06/09/20 06/09/20 06/09/20 06:18 06:18 08:47 WBC RBC Hgb Hct MCV MCH MCHC RDW Plt Count MPV Absolute Neuts (auto) Neutrophils % Lymphocytes % Monocytes % Eosinophils % Basophils % Nucleated RBC % PTT (Actin FS) 84.7 H Sodium 137 Potassium 3.8 Chloride 106 Carbon Dioxide 25 Anion Gap 6 L BUN 6.8 L Creatinine 0.7 Est GFR (CKD-EPI)AfAm 123.86 Est GFR (CKD-EPI)NonAf 106.87 POC Glucometer Random Glucose 169 H Hemoglobin A1c % 7.8 H Lactic Acid Calcium 8.3 L Total Bilirubin 0.4 AST 10 L ALT 13 Alkaline Phosphatase 43 L Creatine Kinase Total Protein 6.2 L Albumin 2.9 L TSH 0.35 L COVID-19 (EFREN) 06/09/20 12:15 WBC RBC Hgb Hct MCV MCH MCHC RDW Plt Count MPV Absolute Neuts (auto) Neutrophils % Lymphocytes % Monocytes % Eosinophils % Basophils % Nucleated RBC % PTT (Actin FS) Sodium Potassium Chloride Carbon Dioxide Anion Gap BUN Creatinine Est GFR (CKD-EPI)AfAm Est GFR (CKD-EPI)NonAf POC Glucometer 163 Random Glucose Hemoglobin A1c % Lactic Acid Calcium Total Bilirubin AST ALT Alkaline Phosphatase Creatine Kinase Total Protein Albumin TSH COVID-19 (EFREN) Current Medications Generic Name Dose Route Start Last Admin Trade Name Freq PRN Reason Stop Dose Admin Acetaminophen 650 mg 06/08/20 15:33 06/08/20 21:33 Tylenol - PO 650 mg Q4H PRN Administration PAIN LEVEL 4 - 6 Atorvastatin Calcium 80 mg 06/08/20 22:00 06/08/20 21:34 Lipitor - PO 80 mg HS NAKIA Administration Clindamycin HCl 300 mg 06/09/20 18:00 Cleocin - PO Q6HPO NAKIA Clopidogrel Bisulfate 75 mg 06/09/20 10:00 06/09/20 09:00 Plavix - PO 75 mg DAILY NAKIA Administration Gabapentin 800 mg 06/08/20 22:00 06/08/20 21:34 Neurontin - PO 800 mg HS NAKIA Administration Heparin Sodium (Porcine) 1,000 unit 06/08/20 19:30 Heparin - IVPUSH PRN PRN Heparin Heparin Sodium (Porcine) 5,000 unit 06/08/20 19:30 06/09/20 01:07 Heparin - IVPUSH 5,000 unit PRN PRN Administration Heparin Sodium Chloride 1,000 mls @ 83 mls/hr 06/08/20 15:45 06/09/20 15:50 Normal Saline - IV Not Given ASDIR NAKIA Heparin Sodium (Porcine) 25, 500 mls @ 16 mls/hr 06/08/20 19:30 06/09/20 10:37 000 unit/ Sodium Chloride IV 900 unit/hr TITR NAKIA 18 mls/hr Administration Protocol 800 UNIT/HR Insulin Aspart 1 vial 06/08/20 16:30 06/09/20 12:17 Novolog Vial Sliding Scale - SQ 2 unit TIDAC [facility] Administration Protocol Insulin Detemir 5 units 06/08/20 22:00 06/09/20 06:27 Levemir Vial SQ 5 units BID@0700,2200 NAKIA Administration Metoprolol Tartrate 25 mg 06/08/20 22:00 06/09/20 09:00 Lopressor - PO 25 mg BID NAKIA Administration Oxycodone HCl 5 mg 06/09/20 09:19 06/09/20 15:18 Roxicodone - PO 5 mg Q6H PRN Administration PAIN LEVEL 6-10 Pantoprazole Sodium 40 mg 06/09/20 10:00 06/09/20 09:00 Protonix - PO 40 mg DAILY NAKIA Administration Quetiapine Fumarate 25 mg 06/08/20 22:00 06/08/20 21:35 Seroquel - PO 25 mg HS NAKIA Administration Ranolazine 500 mg 06/08/20 22:00 06/09/20 09:00 Ranexa - PO 500 mg BID NAKIA Administration Home Medications Medication Instructions Recorded Aspirin [Aspirin EC] 81 mg PO DAILY 11/13/15 Gabapentin 800 mg PO QID 05/06/18 Pantoprazole Sodium [Protonix] 40 mg PO DAILY 05/06/18 Quetiapine Fumarate [Seroquel -] 25 mg PO HS 05/06/18 Atorvastatin Ca [Lipitor] 80 mg PO HS tablet 11/07/18 Clopidogrel Bisulfate [Plavix -] 75 mg PO DAILY tablet 11/07/18 metFORMIN HCL [Metformin ER 1,000 mg PO BID 03/01/19 Gastric] Metoprolol Tartrate 25 mg PO BID 10/01/19 Ranolazine [Ranexa -] 500 mg PO BID #60 tab 10/02/19 ASSESSMENT AND PLAN: 40 year old female with history of CAD s/p NSTEMIs (s/p 6 stents, CABG x 3 vessel at [place] 11/06), Chronic Diastolic CHF, HTN, HLD, Gastritis, DM 2, CKD 3, Anxiety/Depression, Polysubstance Abuse (THC, Ecstasy), presents with left leg ulcer and foot pain. 1. L 3rd toe/leg ulcer infection Initially placed on Meropenem/Vanco - transitioned to Clindamycin PO by ID Afebrile, Hemodynamically Stable. Seen by Podiatry - local wound care with Mupirocin and dry gauze Wound Care clinic as out-patient. 2. Chronic Limb ischemia - bilateral feet cool without palpable pulses. US Duplex LEs - moderate atherosclerotic disease with abnormal distal flow CTA Aorta with runoff done awaiting report. Vascular Surgery to consult. Heparin drip pending Vascular Surgery opinion. Vasculitis work-up ordered 3. DM 2 - Uncontrolled, A1C 7.8. Metformin held. Maintain on Levemir, Novolog sliding scale. 4. CAD s/p CABG - normally on Aspirin/Plavix/Metoprolol/Statin 5. Anxiety/Depression - continue Quetiapine 6. Low TSH 0.35 - free T4 requested. 7. Normocytic Anemia - work-up ordered. DVT Px - on Heparin gtt
[2020-06-09] MEDS ORDERED: PT OWN MED DRAWER 7, Y5N ONE ×2 (16:48→18:12)
--- NOTE | 2020-06-09 17:25 | PN ---
Physical Exam: SUBJECTIVE: Patient seen and examined at bedside. No acute events reported overnight. Patient is complaining of L foot pain. OBJECTIVE: Vital Signs Period Temp Pulse Resp BP Sys/Hand Pulse Ox Last 24 Hr 97.7 F-98.8 F 63-67 18-18 106-126/59-77 100-100 GENERAL: AAOx3, in no acute distress. mutiple tattoos b/l arms. poor dentataion HEENT: NCAT, PERRLA, EOMI, sclera anicteric, conjunctiva clear, oropharynx clear w/o exudates. MMM. NECK: Normal ROM, supple, no lymphadenopathy, JVD, or masses LUNGS: CTABL no wheezes/ rhonchi/ rales. No distress, speaks in full sentences. No increased work of breathing. HEART: RRR, normal S1 S2, no M/R/G ABDOMEN: Soft, NTND, + BS. No guarding or rebound. No hepatomegaly or splenomegaly. MSK: ROM WNL EXTREMITIES: b/l feet are cooler to palpation compared to rest of body. decreased pedal pulses bilaterally. NEUROLOGICAL: CN II-XII intact. Normal speech, normal gait, no focal sensorimotor deficits. SKIN: duskiness on sole of both feet L more than left. round ulcer with yellow scarring on medial left leg 2-3 in above the ankle Laboratory Results - last 24 hr CBC, BMP 06/09/20 06:18 06/09/20 06:18 06/08/20 06/08/20 06/08/20 12:45 22:50 22:50 WBC RBC Hgb Hct MCV MCH MCHC RDW Plt Count MPV Absolute Neuts (auto) Neutrophils % Lymphocytes % Monocytes % Eosinophils % Basophils % Nucleated RBC % PTT (Actin FS) Sodium Potassium Chloride Carbon Dioxide Anion Gap BUN Creatinine Est GFR (CKD-EPI)AfAm Est GFR (CKD-EPI)NonAf POC Glucometer Random Glucose Hemoglobin A1c % Lactic Acid 1.2 Calcium Total Bilirubin AST ALT Alkaline Phosphatase Creatine Kinase 110 Total Protein Albumin TSH COVID-19 (EFREN) Not detected 06/08/20 06/09/20 06/09/20 22:50 05:35 06:18 WBC 5.0 RBC 3.34 L Hgb 9.8 L Hct 29.1 L MCV 87.0 MCH 29.3 MCHC 33.7 RDW 17.5 H Plt Count 353 D MPV 7.8 Absolute Neuts (auto) 2.7 Neutrophils % 54.6 D Lymphocytes % 29.8 D Monocytes % 11.9 H D Eosinophils % 3.3 D Basophils % 0.4 Nucleated RBC % 0 PTT (Actin FS) 38.9 H Sodium Potassium Chloride Carbon Dioxide Anion Gap BUN Creatinine Est GFR (CKD-EPI)AfAm Est GFR (CKD-EPI)NonAf POC Glucometer 180 Random Glucose Hemoglobin A1c % Lactic Acid Calcium Total Bilirubin AST ALT Alkaline Phosphatase Creatine Kinase Total Protein Albumin TSH COVID-19 (EFREN) 06/09/20 06/09/20 06/09/20 06:18 06:18 08:47 WBC RBC Hgb Hct MCV MCH MCHC RDW Plt Count MPV Absolute Neuts (auto) Neutrophils % Lymphocytes % Monocytes % Eosinophils % Basophils % Nucleated RBC % PTT (Actin FS) 84.7 H Sodium 137 Potassium 3.8 Chloride 106 Carbon Dioxide 25 Anion Gap 6 L BUN 6.8 L Creatinine 0.7 Est GFR (CKD-EPI)AfAm 123.86 Est GFR (CKD-EPI)NonAf 106.87 POC Glucometer Random Glucose 169 H Hemoglobin A1c % 7.8 H Lactic Acid Calcium 8.3 L Total Bilirubin 0.4 AST 10 L ALT 13 Alkaline Phosphatase 43 L Creatine Kinase Total Protein 6.2 L Albumin 2.9 L TSH 0.35 L COVID-19 (EFREN) 06/09/20 12:15 WBC RBC Hgb Hct MCV MCH MCHC RDW Plt Count MPV Absolute Neuts (auto) Neutrophils % Lymphocytes % Monocytes % Eosinophils % Basophils % Nucleated RBC % PTT (Actin FS) Sodium Potassium Chloride Carbon Dioxide Anion Gap BUN Creatinine Est GFR (CKD-EPI)AfAm Est GFR (CKD-EPI)NonAf POC Glucometer 163 Random Glucose Hemoglobin A1c % Lactic Acid Calcium Total Bilirubin AST ALT Alkaline Phosphatase Creatine Kinase Total Protein Albumin TSH COVID-19 ([facility]FREN) Active Medications Generic Name Dose Route Start Last Admin Trade Name Freq PRN Reason Stop Dose Admin Acetaminophen 650 mg 06/08/20 15:33 06/08/20 21:33 Tylenol - PO 650 mg Q4H PRN Administration PAIN LEVEL 4 - 6 Atorvastatin Calcium 80 mg 06/08/20 22:00 06/08/20 21:34 Lipitor - PO 80 mg HS NAKIA Administration Clindamycin HCl 300 mg 06/09/20 18:00 Cleocin - PO Q6HPO NAKIA Clopidogrel Bisulfate 75 mg 06/09/20 10:00 06/09/20 09:00 Plavix - PO 75 mg DAILY NAKIA Administration Gabapentin 800 mg 06/08/20 22:00 06/08/20 21:34 Neurontin - PO 800 mg HS NAKIA Administration Heparin Sodium (Porcine) 1,000 unit 06/08/20 19:30 Heparin - IVPUSH PRN PRN Heparin Heparin Sodium (Porcine) 5,000 unit 06/08/20 19:30 06/09/20 01:07 Heparin - IVPUSH 5,000 unit PRN PRN Administration Heparin Sodium Chloride 1,000 mls @ 83 mls/hr 06/08/20 15:45 06/09/20 15:50 Normal Saline - IV Not Given ASDIR NAKIA Heparin Sodium (Porcine) 25, 500 mls @ 16 mls/hr 06/08/20 19:30 06/09/20 10:37 000 unit/ Sodium Chloride IV 900 unit/hr TITR NAKIA 18 mls/hr Administration Protocol 800 UNIT/HR Insulin Aspart 1 vial 06/08/20 16:30 06/09/20 12:17 Novolog Vial Sliding Scale - SQ 2 unit TIDAC [facility] Administration Protocol Insulin Detemir 5 units 06/08/20 22:00 06/09/20 06:27 Levemir Vial SQ 5 units BID@0700,2200 NAKIA Administration Metoprolol Tartrate 25 mg 06/08/20 22:00 06/09/20 09:00 Lopressor - PO 25 mg BID NAKIA Administration Oxycodone HCl 5 mg 06/09/20 09:19 06/09/20 15:18 Roxicodone - PO 5 mg Q6H PRN Administration PAIN LEVEL 6-10 Pantoprazole Sodium 40 mg 06/09/20 10:00 06/09/20 09:00 Protonix - PO 40 mg DAILY NAKIA Administration Quetiapine Fumarate 25 mg 06/08/20 22:00 06/08/20 21:35 Seroquel - PO 25 mg HS NAKIA Administration Ranolazine 500 mg 06/08/20 22:00 06/09/20 09:00 Ranexa - PO 500 mg BID NAKIA Administration ASSESSMENT/PLAN: 40 year old female with history of CAD, NSTEMIs, s/p 6 stents, s/p CABG x 3 vessel at [place] in 2019, Chronic Diastolic CHF, HTN, HLD, Gastritis, DM 2, CKD 3, Anxiety/Depression, Polysubstance Abuse (THC, Ecstasy), presenting with left leg ulcer and foot pain. #Chronic limb ischemia -bilateral feet that are cool to palpatation and 1+ distal pulses b/l -CTA Aorta with runoff -L distal popliteal artery occluded w/ collateral flow. trifucation vessels are disease w/ mostly the posterior tibial artery patent into the foot. heavy calcifications. correlate with conventional angiography -US Duplex LEs - moderate atherosclerotic disease with abnormal distal flow -Vascular consulted: Dr. Vera aware of CTA findings and will see the pt today; will need cardio clearance if a procedure is indicated -Heparin gtt -Vasculitis work-up ordered #L foot/leg ulcer infection -ABX: Clindamycin PO by ID -Podiatry consult- local wound care with Mupirocin and dry gauze; f/u outpt #DM -ISS w/ BGM -continue w/ Levemir #CAD s/p CABG - c/w Metoprolol -c/w Statin -c/w Clopidogrel #Anxiety/Depression -c/w Quetiapine #FEN -NS @ 83 mls/hr -monitor lytes; replete PRN -diabetic/sodium diet #PPx -DVT: Heparin gtt dispo: continue to monitor in tele Visit type - Emergency Visit Emergency Visit: No - New Patient This patient is new to me today: Yes Date on this admission: 06/09/20 - Critical Care Critical Care patient: No - Discharge Referral Referred to [facility] Med P.C.: No ATTENDING PHYSICIAN STATEMENT I saw and evaluated the patient. I reviewed the resident's note and discussed the case with the resident. I agree with the resident's findings and plan as documented. SUBJECTIVE: OBJECTIVE: ASSESSMENT AND PLAN:
[2020-06-09] MEDS: CLINDAMYCIN HCL 150 MG CAPSULE (FP) PO SCH ×2 (18:22→23:47)
--- NOTE | 2020-06-09 18:31 | PN ---
Progress Note (short form) - Note Progress Note: Vascular Surgery Patient with past medical history of [id number] diabetes on metformin, CAD on Plavix, triple bypass few months ago, hyperlipidemia, hypertension presented with complaint of one-week history of persistent left foot pain right up to above ankle with swelling. Patient also reported multiple ulcers which has been healing to left foot. Denies fever, chills, weakness, nausea, vomiting. Patient reported increased pain to left foot with ambulation when she stepped on foot. Denies any trauma or injury to foot. Denies shortness of breath, chest pain. Patient has not taken anything for symptoms. Denies any other symptoms Pt does say that she had trauma to the foot -- the last three toes. Pt also hit the bed frame, and has a wound that is increasing in size above the left ankle. PE Left leg -- same temp as right leg. Pt has callus and discoloration of plantar aspect of left foot. Does not seem ischemic. Pt has good motor and sensory intact. Pt has pain on last three digits due to injury from bed. Pt has a 2x2xm ulcer above the ankle. Pt conplains of pain in the foot when she stands on it, and swelling in the foot. CTA reviewed -- There is a distal popliteal occlusion with collaterals -- so the lesion is chronic. Main runoff to foot is the posterior tibial artery. Pt would need angiogram to help heal the ankle ulcer. Her arterial disease is chronic., due to her collaterals. Pt NEEDS to stop smoking. If pt complys, can do angiogram on this admission. Pt would need medical and cardiology clearance. Elgin Vera DO
--- NOTE | 2020-06-09 19:24 | PN ---
Progress Note (short form) - Note Progress Note: Microblogged by nursing staff patient having extreme anxiety and threatening to jump out of the window. On assessment, patient sitting upright in bed crying. Says she has had severe anxiety with all of her medical conditions and has a strong psychiatric history. She states she feels she has been underdiagnosed by psychiatrists in the past. When asked about thought of self harm, she said "I wont lie I've been thinking about it recently." She admits to 4 prior failed suicide attempts which she was hospitalized for. Plan: -1:1 observation -Psychiatry consult Dr. Muñoz -Can give evening seroquel dose now -provided empathy and verbal understanding to patient's current feelings
[2020-06-09] MEDS: QUEtiapine FUMARATE 25 MG TABLET PO SCH ×2 (19:28→22:21)
[2020-06-09] MEDS ORDERED: LORazepam 2 MG/ML SDV VIAL IVPUSH ONE ×2 (20:29→20:49)
[2020-06-09] MEDS ORDERED: LORazepam 2 MG/ML SDV VIAL ONE (20:52)
[2020-06-09] MEDS: GABAPENTIN 400 MG CAPSULE PO SCH (22:18)
[2020-06-09] MEDS: ATORVASTATIN CA 80 MG TABLET (FP) PO SCH (22:18)
[2020-06-10] MEDS: oxyCODONE HCL 5 MG TABLET PO PRN ×3 (03:55→21:35)
[2020-06-10] MEDS: CLINDAMYCIN HCL 150 MG CAPSULE (FP) PO SCH ×3 (05:38→17:43)
[2020-06-10 06:01] LABS: PH,URINE 5.5 (5.0-8.0); URINE APPEARANCE CLEAR; URINE BILIRUBIN NEGATIVE (NEGATIVE); URINE COLOR YELLOW; URINE GLUCOSE (UA) NEGATIVE (NEGATIVE); URINE KETONE NEGATIVE (NEGATIVE); URINE LEUK ESTERASE NEGATIVE (NEGATIVE); URINE NITRITE NEGATIVE (NEGATIVE); URINE PROTEIN NEGATIVE (NEGATIVE); URINE UROBILINOGEN 0.2 mg/dL (0.2-1.0)
[2020-06-10 06:10] LABS: COCAINE, UR NEGATIVE ng/ml (CUTOFF=300); EPI CELLS 20 /uL (0-25.1); HYALINE CASTS 0 /uL (0-3.1); METHADONE, UR NEGATIVE ng/ml (CUTOFF=300); PHENCYCLIDINE,URINE NEGATIVE ng/ml (CUTOFF=25); URINE BACTERIA 26 /uL (0-1359); URINE BARBITURATES NEGATIVE ng/ml (CUTOFF=200); URINE BENZODIAZEPINES NEGATIVE ng/ml (CUTOFF=200); URINE RBC 32 /uL (0-23.9); URINE WBC 10 /uL (0-25.8)
[2020-06-10 06:17] LABS: URINE AMPHETAMINES POSITIVE ng/ml (CUTOFF=500)
[2020-06-10 06:18] LABS: OPIATES, URI POSITIVE ng/ml (CUTOFF=300)
[2020-06-10] MEDS: INSULIN SLIDING SCALE (NOVOLOG) 1 VIAL SQ SCH ×3 (06:39→17:03)
[2020-06-10] MEDS: INSULIN (LEVEMIR) 100 UNITS/ML UNITS SQ SCH ×2 (06:39→21:24)
[2020-06-10 07:38] LABS: BASO % 0.7 % (0-2.0); EOS % 3.6 % (0-4.5); HEMATOCRIT 32.6 % (32.4-45.2); LYMPH % 23.9 % (8-40); MCH 29.4 pg (25.7-33.7); MCHC 33.7 g/dl (32.0-36.0); MEAN CELL VOLUME 87.3 fl (80-96); MEAN PLT VOLUME 7.6 fl (7.5-11.1); MONO % 11.1 % (3.8-10.2); NEUT % 60.7 % (42.8-82.8); PLATELET COUNT 364 K/MM3 (134-434); RBC 3.73 M/mm3 (3.60-5.2); RDW 17.3 % (11.6-15.6); WHITE BLOOD COUNT 5.9 K/mm3 (4.0-10.0)
[2020-06-10 08:09] LABS: ALBUMIN 3.5 g/dl (3.4-5.0); BILIRUBIN,TOTAL 0.3 mg/dL (0.2-1); CALCIUM 8.7 mg/dL (8.5-10.1); POTASSIUM 4.1 mmol/L (3.5-5.1); TOT PROT 7.2 g/dl (6.4-8.2)
[2020-06-10] MEDS ORDERED: INSULIN (NOVOLOG) ASPART 100 UNITS/ML 10ML VIAL ONE (08:50)
[2020-06-10] MEDS ORDERED: LORazepam 2 MG/ML SDV VIAL IVPUSH ONE (08:57)
--- NOTE | 2020-06-10 10:34 | CON.PSY ---
Psychiatry Consult Chief Complaint: 40 Year old female seen for Psych evaluation for ? Suicidal threats...If I wanted to Kill myself I would not come here and ask for Help.. I have seen Dr. Burks for anxiety and Depression over the years.. I am lookinmg to go back to her.. I am not going to Kill myself.... Symptoms: reports: Anxiety - Previous Psychiatric Treatment Outpatient: More than 6 mos ago - Previous Substance Abuse Treatment Outpatient: None - Reason for Previous Treatment Reason for Previous Treatment: Anxiety or Panic Disorder - Current Medications Current Medications: Active Medications Acetaminophen (Tylenol -) 650 mg PO Q4H PRN PRN Reason: PAIN LEVEL 4 - 6 Last Admin: 06/08/20 21:33 Dose: 650 mg Documented by: Atorvastatin Calcium (Lipitor -) 80 mg PO HS [facility] Last Admin: 06/09/20 22:18 Dose: 80 mg Documented by: Clindamycin HCl (Cleocin -) 300 mg PO Q6HPO [facility] Last Admin: 06/10/20 05:38 Dose: 300 mg Documented by: Clopidogrel Bisulfate (Plavix -) 75 mg PO DAILY [facility] Last Admin: 06/09/20 09:00 Dose: 75 mg Documented by: Diazepam (Valium -) 10 mg PO BID [facility] Gabapentin (Neurontin -) 800 mg PO HS [facility] Last Admin: 06/09/20 22:18 Dose: 800 mg Documented by: Heparin Sodium (Porcine) (Heparin -) 1,000 unit IVPUSH PRN PRN PRN Reason: Heparin Heparin Sodium (Porcine) (Heparin -) 5,000 unit IVPUSH PRN PRN PRN Reason: Heparin Last Admin: 06/09/20 22:25 Dose: 5,000 unit Documented by: Heparin Sodium (Porcine) 25, (000 unit/ Sodium Chloride) 500 mls @ 16 mls/hr IV TITR [facility]; Protocol Last Admin: 06/09/20 22:26 Dose: 1,050 unit/hr, 21 mls/hr Documented by: Insulin Aspart (Novolog Vial Sliding Scale -) 1 vial SQ TIDAC [facility]; Protocol Last Admin: 06/10/20 06:39 Dose: Not Given Documented by: Insulin Detemir (Levemir Vial) 5 units SQ BID@0700,2200 [facility] Last Admin: 06/10/20 06:39 Dose: 5 units Documented by: Metoprolol Tartrate (Lopressor -) 25 mg PO BID [facility] Last Admin: 06/09/20 22:18 Dose: 25 mg Documented by: Oxycodone HCl (Roxicodone -) 5 mg PO Q6H PRN PRN Reason: PAIN LEVEL 6-10 Last Admin: 06/10/20 03:55 Dose: 5 mg Documented by: Pantoprazole Sodium (Protonix -) 40 mg PO DAILY [facility] Last Admin: 06/09/20 09:00 Dose: 40 mg Documented by: Ranolazine (Ranexa -) 500 mg PO BID [facility] Last Admin: 06/09/20 22:22 Dose: 500 mg Documented by: - Allergies Allergies: Allergies Allergy/AdvReac Type Severity Reaction Status Date / Time cephalexin monohydrate Allergy Severe Hives Verified 06/08/20 11:41 [From Keflex] - Current Living Status Usual Living Arrangement: Alone - Current Mental Status Evaluation Appearance: Well Groomed Attitude: Cooperative - Affect Affect: Full Range Appropriateness: Appropriate to Content - Mood Mood: Anxious - Speech/Language Expressive: Coherent - Psychomotor Activity Psychomotor Activity: Normal - Thought Process Thought Process: Transgential - Thought Content Hallucinations: Absent Delusions: Absent - Self Perception Self Perception: No Impairment - Cognition Attention: Alert Orientation: Time Memory, Immediate Recall: Intact Memory, Short Term: 3/3 Memory, Remote with Promptin/3 - Concentration Serial Sevens Intact: Yes Simple Calculations Intact: Yes - Abstraction Proverb Interpretation: Intact Judgement: Minimally Impaired - Insight Insight: Intact - Impulse Control Impulse Control: Minimally Impaired - Suicidal Ideation Suicidal Ideation: No - Homicidal Ideation Homicidal Ideation: No Problem List - Problems (1) Anxiety Code(s): F41.9 - ANXIETY DISORDER, UNSPECIFIED Assessment/Plan 1) d/c 1:1. Patient is not suicidal or Homicidal at this time.. Has no plans to hurt herself. 2) Valium 10 mg po bid for anxiety. 3) She can sign out AMA. 4)Will seek follow with her [facility].
[2020-06-10] MEDS ORDERED: diazePAM 5 MG TABLET PO ONE (10:45)
--- NOTE | 2020-06-10 10:46 | CON.CARD ---
Cardiology Consult (text) - Consultation Consultation Note: This patient is known well and managed as out patient by Dr. Carrasco. Please consult him fur evaluation and management. Will sign off.
[2020-06-10] MEDS: PANTOPRAZOLE 40 MG TABLET PO SCH (10:51)
[2020-06-10] MEDS: CLOPIDOGREL BISULFATE 75 MG TABLET (FP) PO SCH (10:52)
[2020-06-10] MEDS: METOPROLOL TARTRATE 25 MG TABLET (FP) PO SCH ×2 (10:52→21:25)
[2020-06-10] MEDS: RANOLAZINE E.R. 500 MG TABLET (FP) PO SCH ×2 (10:52→21:25)
--- NOTE | 2020-06-10 12:11 | PN ---
Progress Note, Physician - Current Medication List Current Medications: Active Medications Acetaminophen (Tylenol -) 650 mg PO Q4H PRN PRN Reason: PAIN LEVEL 4 - 6 Last Admin: 06/08/20 21:33 Dose: 650 mg Documented by: Atorvastatin Calcium (Lipitor -) 80 mg PO HS [facility] Last Admin: 06/09/20 22:18 Dose: 80 mg Documented by: Clindamycin HCl (Cleocin -) 300 mg PO Q6HPO [facility] Last Admin: 06/10/20 05:38 Dose: 300 mg Documented by: Clopidogrel Bisulfate (Plavix -) 75 mg PO DAILY [facility] Last Admin: 06/10/20 10:52 Dose: 75 mg Documented by: Diazepam (Valium -) 10 mg PO BID [facility] Gabapentin (Neurontin -) 800 mg PO HS [facility] Last Admin: 06/09/20 22:18 Dose: 800 mg Documented by: Heparin Sodium (Porcine) (Heparin -) 1,000 unit IVPUSH PRN PRN PRN Reason: Heparin Heparin Sodium (Porcine) (Heparin -) 5,000 unit IVPUSH PRN PRN PRN Reason: Heparin Last Admin: 06/09/20 22:25 Dose: 5,000 unit Documented by: Heparin Sodium (Porcine) 25, (000 unit/ Sodium Chloride) 500 mls @ 16 mls/hr IV TITR [facility]; Protocol Last Admin: 06/09/20 22:26 Dose: 1,050 unit/hr, 21 mls/hr Documented by: Insulin Aspart (Novolog Vial Sliding Scale -) 1 vial SQ TIDAC [facility]; Protocol Last Admin: 06/10/20 06:39 Dose: Not Given Documented by: Insulin Detemir (Levemir Vial) 5 units SQ BID@0700,2200 [facility] Last Admin: 06/10/20 06:39 Dose: 5 units Documented by: Metoprolol Tartrate (Lopressor -) 25 mg PO BID [facility] Last Admin: 06/10/20 10:52 Dose: 25 mg Documented by: Oxycodone HCl (Roxicodone -) 5 mg PO Q6H PRN PRN Reason: PAIN LEVEL 6-10 Last Admin: 06/10/20 11:01 Dose: 5 mg Documented by: Pantoprazole Sodium (Protonix -) 40 mg PO DAILY [facility] Last Admin: 06/10/20 10:51 Dose: 40 mg Documented by: Ranolazine (Ranexa -) 500 mg PO BID [facility] Last Admin: 06/10/20 10:52 Dose: 500 mg Documented by: - Objective Vital Signs: Vital Signs Temperature 97.7 F 06/10/20 09:43 Pulse Rate 79 06/10/20 09:43 Respiratory Rate 22 H 06/10/20 09:43 Blood Pressure 129/83 06/10/20 09:43 O2 Sat by Pulse Oximetry (%) 100 06/10/20 09:43 Labs: CBC, BMP 06/10/20 07:08 06/10/20 07:08 INR, PTT INR 1.02 (0.83-1.09) 06/08/20 12:45
--- NOTE | 2020-06-10 12:54 | PN ---
Physical Exam: SUBJECTIVE: Patient seen and examined at bedside. Overnight, the patient was anxious and reported suicidal ideations to the nurse and Dr. Hoang but this morning is denying suicidal ideations. OBJECTIVE: Vital Signs Period Temp Pulse Resp BP Sys/Hand Pulse Ox Last 24 Hr 97.5 F-98.1 F 63-85 18-22 110-147/69-83 98-100 GENERAL: AAOx3, in no acute distress. mutiple tattoos b/l arms. poor dentataion HEENT: NCAT, PERRLA, EOMI, sclera anicteric, conjunctiva clear, oropharynx clear w/o exudates. MMM. NECK: Normal ROM, supple, no lymphadenopathy, JVD, or masses LUNGS: CTABL no wheezes/ rhonchi/ rales. No distress, speaks in full sentences. No increased work of breathing. HEART: RRR, normal S1 S2, no M/R/G ABDOMEN: Soft, NTND, + BS. No guarding or rebound. No hepatomegaly or splenomegaly. MSK: ROM WNL EXTREMITIES: b/l feet are cooler to palpation compared to rest of body. decreased pedal pulses bilaterally. NEUROLOGICAL: CN II-XII intact. Normal speech, normal gait, no focal sensorimot or deficits. SKIN: duskiness on sole of both feet L more than left. round ulcer with yellow scarring on medial left leg 2-3 in above the ankle Laboratory Results - last 24 hr CBC, BMP 06/10/20 07:08 06/10/20 07:08 WBC 5.9 K/mm3 (4.0-10.0) 06/10/20 07:08 RBC 3.73 M/mm3 (3.60-5.2) 06/10/20 07:08 Hgb 11.0 GM/dL (10.7-15.3) 06/10/20 07:08 Hct 32.6 % (32.4-45.2) 06/10/20 07:08 MCV 87.3 fl (80-96) 06/10/20 07:08 MCH 29.4 pg (25.7-33.7) 06/10/20 07:08 MCHC 33.7 g/dl (32.0-36.0) 06/10/20 07:08 RDW 17.3 % (11.6-15.6) H 06/10/20 07:08 Plt Count 364 K/MM3 (134-434) 06/10/20 07:08 MPV 7.6 fl (7.5-11.1) 06/10/20 07:08 Absolute Neuts (auto) 3.6 K/mm3 (1.5-8.0) 06/10/20 07:08 Neutrophils % 60.7 % (42.8-82.8) 06/10/20 07:08 Lymphocytes % 23.9 % (8-40) 06/10/20 07:08 Monocytes % 11.1 % (3.8-10.2) H 06/10/20 07:08 Eosinophils % 3.6 % (0-4.5) 06/10/20 07:08 Basophils % 0.7 % (0-2.0) 06/10/20 07:08 Nucleated RBC % 0 % (0-0) 06/10/20 07:08 Sodium 138 mmol/L (136-145) 06/10/20 07:08 Potassium 4.1 mmol/L (3.5-5.1) 06/10/20 07:08 Chloride 108 mmol/L (98-107) H 06/10/20 07:08 Carbon Dioxide 26 mmol/L (21-32) 06/10/20 07:08 Anion Gap 5 MMOL/L (8-16) L 06/10/20 07:08 BUN 6.0 mg/dL (7-18) L 06/10/20 07:08 Creatinine 1.0 mg/dL (0.55-1.3) 06/10/20 07:08 Est GFR (CKD-EPI)AfAm 80.47 06/10/20 07:08 Est GFR (CKD-EPI)NonAf 69.43 06/10/20 07:08 POC Glucometer 145 UNITS (80-120) 06/10/20 05:35 Random Glucose 115 mg/dL (74-106) H 06/10/20 07:08 Hemoglobin A1c % 7.8 % (4.2-6.3) H 06/09/20 06:18 Lactic Acid 1.2 mmol/L (0.4-2.0) 06/08/20 22:50 Calcium 8.7 mg/dL (8.5-10.1) 06/10/20 07:08 Iron 46 ug/dL (50-175) L 06/10/20 07:08 TIBC 457 ug/dL (250-450) H 06/10/20 07:08 Iron Saturation 10 % (17.5-39) L 06/10/20 07:08 Unsaturated IBC 411 ug/dL (200-275) H 06/10/20 07:08 Ferritin 30.0 ng/ml (8-388) 06/10/20 07:08 Total Bilirubin 0.3 mg/dL (0.2-1) 06/10/20 07:08 AST 14 U/L (15-37) L 06/10/20 07:08 ALT 18 U/L (13-61) 06/10/20 07:08 Alkaline Phosphatase 46 U/L (45-117) 06/10/20 07:08 Creatine Kinase 110 U/L (26-192) 06/08/20 22:50 Total Protein 7.2 g/dl (6.4-8.2) 06/10/20 07:08 Albumin 3.5 g/dl (3.4-5.0) 06/10/20 07:08 Triglycerides 87 mg/dL (0-150) 06/08/20 14:45 Cholesterol 122 mg/dL (50-200) 06/08/20 14:45 Total LDL Cholesterol 60 mg/dL (5-100) 06/08/20 14:45 HDL Cholesterol 52 mg/dL (40-60) 06/08/20 14:45 Vitamin B12 1143 pg/ml (193-986) H 06/10/20 07:08 Serum Folate 6 ng/mL (3.1-17.5) 06/10/20 07:08 TSH 0.35 uIU/ml (0.358-3.74) L 06/09/20 06:18 Free T4 0.93 ng/dl (0.76-1.46) 06/10/20 07:08 06/09/20 06/09/20 06/09/20 17:25 18:30 22:17 WBC RBC Hgb Hct MCV MCH MCHC RDW Plt Count MPV Absolute Neuts (auto) Neutrophils % Lymphocytes % Monocytes % Eosinophils % Basophils % Nucleated RBC % PTT (Actin FS) 31.5 Sodium Potassium Chloride Carbon Dioxide Anion Gap BUN Creatinine Est GFR (CKD-EPI)AfAm Est GFR (CKD-EPI)NonAf POC Glucometer 139 200 Random Glucose Calcium Iron TIBC Iron Saturation Unsaturated IBC Ferritin Total Bilirubin AST ALT Alkaline Phosphatase Total Protein Albumin Vitamin B12 Serum Folate Free T4 Urine Color Urine Appearance Urine pH Ur Specific Gray Urine Protein Urine Glucose (UA) Urine Ketones Urine Blood Urine Nitrite Urine Bilirubin Urine Urobilinogen Ur Leukocyte Esterase Urine WBC (Auto) Urine RBC (Auto) Urine Casts (Auto) U Epithel Cells (Auto) Urine Bacteria (Auto) Opiates Screen Methadone Screen Barbiturate Screen Phencyclidine Screen Ur Amphetamines Screen MDMA (Ecstasy) Screen Benzodiazepines Screen Cocaine Screen U Marijuana (THC) Screen 06/10/20 06/10/20 06/10/20 05:35 05:40 05:40 WBC RBC Hgb Hct MCV MCH MCHC RDW Plt Count MPV Absolute Neuts (auto) Neutrophils % Lymphocytes % Monocytes % Eosinophils % Basophils % Nucleated RBC % PTT (Actin FS) Sodium Potassium Chloride Carbon Dioxide Anion Gap BUN Creatinine Est GFR (CKD-EPI)AfAm Est GFR (CKD-EPI)NonAf POC Glucometer 145 Random Glucose Calcium Iron TIBC Iron Saturation Unsaturated IBC Ferritin Total Bilirubin AST ALT Alkaline Phosphatase Total Protein Albumin Vitamin B12 Serum Folate Free T4 Urine Color Yellow Urine Appearance Clear Urine pH 5.5 Ur Specific Gray 1.019 Urine Protein Negative Urine Glucose (UA) Negative Urine Ketones Negative Urine Blood Negative Urine Nitrite Negative Urine Bilirubin Negative Urine Urobilinogen 0.2 Ur Leukocyte Esterase Negative Urine WBC (Auto) 10 Urine RBC (Auto) 32 Urine Casts (Auto) 0 U Epithel Cells (Auto) 20 Urine Bacteria (Auto) 26 Opiates Screen Positive A* Methadone Screen Negative Barbiturate Screen Negative Phencyclidine Screen Negative Ur Amphetamines Screen Positive A* MDMA (Ecstasy) Screen Positive A* Benzodiazepines Screen Negative Cocaine Screen Negative U Marijuana (THC) Screen Positive A* 06/10/20 06/10/20 06/10/20 07:08 07:08 07:08 WBC 5.9 RBC 3.73 Hgb 11.0 Hct 32.6 MCV 87.3 MCH 29.4 MCHC 33.7 RDW 17.3 H Plt Count 364 MPV 7.6 Absolute Neuts (auto) 3.6 Neutrophils % 60.7 Lymphocytes % 23.9 Monocytes % 11.1 H Eosinophils % 3.6 Basophils % 0.7 Nucleated RBC % 0 PTT (Actin FS) 81.7 H Sodium 138 Potassium 4.1 Chloride 108 H Carbon Dioxide 26 Anion Gap 5 L BUN 6.0 L Creatinine 1.0 Est GFR (CKD-EPI)AfAm 80.47 Est GFR (CKD-EPI)NonAf 69.43 POC Glucometer Random Glucose 115 H Calcium 8.7 Iron TIBC Iron Saturation Unsaturated IBC Ferritin Total Bilirubin 0.3 AST 14 L ALT 18 Alkaline Phosphatase 46 Total Protein 7.2 Albumin 3.5 Vitamin B12 Serum Folate Free T4 0.93 Urine Color Urine Appearance Urine pH Ur Specific Gray Urine Protein Urine Glucose (UA) Urine Ketones Urine Blood Urine Nitrite Urine Bilirubin Urine Urobilinogen Ur Leukocyte Esterase Urine WBC (Auto) Urine RBC (Auto) Urine Casts (Auto) U Epithel Cells (Auto) Urine Bacteria (Auto) Opiates Screen Methadone Screen Barbiturate Screen Phencyclidine Screen Ur Amphetamines Screen MDMA (Ecstasy) Screen Benzodiazepines Screen Cocaine Screen U Marijuana (THC) Screen 06/10/20 07:08 WBC RBC Hgb Hct MCV MCH MCHC RDW Plt Count MPV Absolute Neuts (auto) Neutrophils % Lymphocytes % Monocytes % Eosinophils % Basophils % Nucleated RBC % PTT (Actin FS) Sodium Potassium Chloride Carbon Dioxide Anion Gap BUN Creatinine Est GFR (CKD-EPI)AfAm Est GFR (CKD-EPI)NonAf POC Glucometer Random Glucose Calcium Iron 46 L TIBC 457 H Iron Saturation 10 L Unsaturated IBC 411 H Ferritin 30.0 Total Bilirubin AST ALT Alkaline Phosphatase Total Protein Albumin Vitamin B12 1143 H Serum Folate 6 Free T4 Urine Color Urine Appearance Urine pH Ur Specific Gray Urine Protein Urine Glucose (UA) Urine Ketones Urine Blood Urine Nitrite Urine Bilirubin Urine Urobilinogen Ur Leukocyte Esterase Urine WBC (Auto) Urine RBC (Auto) Urine Casts (Auto) U Epithel Cells (Auto) Urine Bacteria (Auto) Opiates Screen Methadone Screen Barbiturate Screen Phencyclidine Screen Ur Amphetamines Screen MDMA (Ecstasy) Screen Benzodiazepines Screen Cocaine Screen U Marijuana (THC) Screen Active Medications Generic Name Dose Route Start Last Admin Trade Name Freq PRN Reason Stop Dose Admin Acetaminophen 650 mg 06/08/20 15:33 06/08/20 21:33 Tylenol - PO 650 mg Q4H PRN Administration PAIN LEVEL 4 - 6 Atorvastatin Calcium 80 mg 06/08/20 22:00 06/09/20 22:18 Lipitor - PO 80 mg HS NAKIA Administration Clindamycin HCl 300 mg 06/09/20 18:00 06/10/20 05:38 Cleocin - PO 300 mg Q6HPO NAKIA Administration Clopidogrel Bisulfate 75 mg 06/09/20 10:00 06/10/20 10:52 Plavix - PO 75 mg DAILY NAKIA Administration Diazepam 10 mg 06/10/20 22:00 Valium - PO BID NAKIA Gabapentin 800 mg 06/08/20 22:00 06/09/20 22:18 Neurontin - PO 800 mg HS NAKIA Administration Heparin Sodium (Porcine) 1,000 unit 06/08/20 19:30 Heparin - IVPUSH PRN PRN Heparin Heparin Sodium (Porcine) 5,000 unit 06/08/20 19:30 06/09/20 22:25 Heparin - IVPUSH 5,000 unit PRN PRN Administration Heparin Heparin Sodium (Porcine) 25, 500 mls @ 16 mls/hr 06/08/20 19:30 06/09/20 22:26 000 unit/ Sodium Chloride IV 1,050 unit/hr TITR NAKIA 21 mls/hr Administration Protocol 800 UNIT/HR Insulin Aspart 1 vial 06/08/20 16:30 06/10/20 06:39 Novolog Vial Sliding Scale - SQ Not Given TIDAC [facility] Protocol Insulin Detemir 5 units 06/08/20 22:00 06/10/20 06:39 Levemir Vial SQ 5 units BID@0700,2200 NAKIA Administration Metoprolol Tartrate 25 mg 06/08/20 22:00 06/10/20 10:52 Lopressor - PO 25 mg BID NAKIA Administration Oxycodone HCl 5 mg 06/09/20 09:19 06/10/20 11:01 Roxicodone - PO 5 mg Q6H PRN Administration PAIN LEVEL 6-10 Pantoprazole Sodium 40 mg 06/09/20 10:00 06/10/20 10:51 Protonix - PO 40 mg DAILY NAKIA Administration Ranolazine 500 mg 06/08/20 22:00 06/10/20 10:52 Ranexa - PO 500 mg BID NAKIA Administration ASSESSMENT/PLAN: 40 year old female with history of CAD, NSTEMIs, s/p 6 stents, s/p CABG x 3 vessel at [place] in 2019, Chronic Diastolic CHF, HTN, HLD, Gastritis, DM 2, CKD 3, Anxiety/Depression, Polysubstance Abuse (THC, Ecstasy), presenting with left leg ulcer and foot pain. #Chronic limb ischemia -bilateral feet that are cool to palpatation and 1+ distal pulses b/l -CTA Aorta with runoff -L distal popliteal artery occluded w/ collateral flow. trifucation vessels are disease w/ mostly the posterior tibial artery patent into the foot. heavy calcifications. correlate with conventional angiography -US Duplex LEs - moderate atherosclerotic disease with abnormal distal flow -Vascular consulted: Dr. Vera for angio after cardiac and medical clearance -cardio consulted for cardiac clearance -Heparin gtt -Vasculitis work-up ordered #L foot/leg ulcer infection -ABX: Clindamycin PO by ID -Podiatry consult- local wound care with Mupirocin and dry gauze; f/u outpt #Anxiety/Depression -reported suicidal ideation last night but denies it today -psych consult: patient does not need 1:1; valium 10 mg BID for anxiety; patient has capacity -c/w Quetiapine #DM -ISS w/ BGM -continue w/ Levemir #Normocytic Anemia -Iron deficiency noted on labs. -IV Venofer ordered -No evidence of bleeding -FOBT ordered; f/u results #CAD s/p CABG - c/w Metoprolol -c/w Statin -c/w Clopidogrel #Decreased TSH -TSH: 0.35 - free T4 was normal - Repeat TFTs in 3-4 weeks once acute illness resolves #Polysubstance Abuse -Utox positive for THC, Ecstasy, Amphetamines -denies drug use except for marijuana #FEN -NS @ 83 mls/hr -monitor lytes; replete PRN -diabetic/sodium diet #PPx -DVT: Heparin gtt dispo: continue to monitor in tele Visit type - Emergency Visit Emergency Visit: No - New Patient This patient is new to me today: No - Critical Care Critical Care patient: No - Discharge Referral Referred to [facility] No ATTENDING PHYSICIAN STATEMENT I saw and evaluated the patient. I reviewed the resident's note and discussed the case with the resident. I agree with the resident's findings and plan as documented. SUBJECTIVE: OBJECTIVE: ASSESSMENT AND PLAN:
--- NOTE | 2020-06-10 13:55 | PN ---
Teaching Attending Note Name of Resident: Duy Marie ATTENDING PHYSICIAN STATEMENT I saw and evaluated the patient. I reviewed the resident's note and discussed the case with the resident. I agree with the resident's findings and plan as documented. SUBJECTIVE: Some improvement in L foot swelling and pain, still preventing her from fully weight bearing. denies suicidal/homicidal ideation. OBJECTIVE: Afebrile, Hemodynamically Stable. Last Vital Signs Temp Pulse Resp BP Pulse Ox 97.7 F 79 22 H 129/83 100 06/10/20 09:43 06/10/20 09:43 06/10/20 09:43 06/10/20 09:43 06/10/20 09:43 Heart - S1, S2, RRR Lungs - clear to auscultation Abdomen - Soft, non-tender. Bowel Sounds normal. Extremities - Cool extremities, pulses not palpable. LLE mid-petit ulcer medial aspect and L third digit ulcer with toe discoloration and discoloration on plantar aspect L foot. Neuro - AAO x 3. Tone/Power normal Laboratory Results - last 24 hr 06/09/20 06/09/20 06/09/20 17:25 18:30 22:17 WBC RBC Hgb Hct MCV MCH MCHC RDW Plt Count MPV Absolute Neuts (auto) Neutrophils % Lymphocytes % Monocytes % Eosinophils % Basophils % Nucleated RBC % PTT (Actin FS) 31.5 Sodium Potassium Chloride Carbon Dioxide Anion Gap BUN Creatinine Est GFR (CKD-EPI)AfAm Est GFR (CKD-EPI)NonAf POC Glucometer 139 200 Random Glucose Calcium Iron TIBC Iron Saturation Unsaturated IBC Ferritin Total Bilirubin AST ALT Alkaline Phosphatase Total Protein Albumin Vitamin B12 Serum Folate Free T4 Urine Color Urine Appearance Urine pH Ur Specific [place] Urine Protein Urine Glucose (UA) Urine Ketones Urine Blood Urine Nitrite Urine Bilirubin Urine Urobilinogen Ur Leukocyte Esterase Urine WBC (Auto) Urine RBC (Auto) Urine Casts (Auto) U Epithel Cells (Auto) Urine Bacteria (Auto) Opiates Screen Methadone Screen Barbiturate Screen Phencyclidine Screen Ur Amphetamines Screen MDMA (Ecstasy) Screen Benzodiazepines Screen Cocaine Screen U Marijuana (THC) Screen 06/10/20 06/10/20 06/10/20 05:35 05:40 05:40 WBC RBC Hgb Hct MCV MCH MCHC RDW Plt Count MPV Absolute Neuts (auto) Neutrophils % Lymphocytes % Monocytes % Eosinophils % Basophils % Nucleated RBC % PTT (Actin FS) Sodium Potassium Chloride Carbon Dioxide Anion Gap BUN Creatinine Est GFR (CKD-EPI)AfAm Est GFR (CKD-EPI)NonAf POC Glucometer 145 Random Glucose Calcium Iron TIBC Iron Saturation Unsaturated IBC Ferritin Total Bilirubin AST ALT Alkaline Phosphatase Total Protein Albumin Vitamin B12 Serum Folate Free T4 Urine Color Yellow Urine Appearance Clear Urine pH 5.5 Ur Specific [place] 1.019 Urine Protein Negative Urine Glucose (UA) Negative Urine Ketones Negative Urine Blood Negative Urine Nitrite Negative Urine Bilirubin Negative Urine Urobilinogen 0.2 Ur Leukocyte Esterase Negative Urine WBC (Auto) 10 Urine RBC (Auto) 32 Urine Casts (Auto) 0 U Epithel Cells (Auto) 20 Urine Bacteria (Auto) 26 Opiates Screen Positive A* Methadone Screen Negative Barbiturate Screen Negative Phencyclidine Screen Negative Ur Amphetamines Screen Positive A* MDMA (Ecstasy) Screen Positive A* Benzodiazepines Screen Negative Cocaine Screen Negative U Marijuana (THC) Screen Positive A* 06/10/20 06/10/20 06/10/20 07:08 07:08 07:08 WBC 5.9 RBC 3.73 Hgb 11.0 Hct 32.6 MCV 87.3 MCH 29.4 MCHC 33.7 RDW 17.3 H Plt Count 364 MPV 7.6 Absolute Neuts (auto) 3.6 Neutrophils % 60.7 Lymphocytes % 23.9 Monocytes % 11.1 H Eosinophils % 3.6 Basophils % 0.7 Nucleated RBC % 0 PTT (Actin FS) 81.7 H Sodium 138 Potassium 4.1 Chloride 108 H Carbon Dioxide 26 Anion Gap 5 L BUN 6.0 L Creatinine 1.0 Est GFR (CKD-EPI)AfAm 80.47 Est GFR (CKD-EPI)NonAf 69.43 POC Glucometer Random Glucose 115 H Calcium 8.7 Iron TIBC Iron Saturation Unsaturated IBC Ferritin Total Bilirubin 0.3 AST 14 L ALT 18 Alkaline Phosphatase 46 Total Protein 7.2 Albumin 3.5 Vitamin B12 Serum Folate Free T4 0.93 Urine Color Urine Appearance Urine pH Ur Specific [place] Urine Protein Urine Glucose (UA) Urine Ketones Urine Blood Urine Nitrite Urine Bilirubin Urine Urobilinogen Ur Leukocyte Esterase Urine WBC (Auto) Urine RBC (Auto) Urine Casts (Auto) U Epithel Cells (Auto) Urine Bacteria (Auto) Opiates Screen Methadone Screen Barbiturate Screen Phencyclidine Screen Ur Amphetamines Screen MDMA (Ecstasy) Screen Benzodiazepines Screen Cocaine Screen U Marijuana (THC) Screen 06/10/20 07:08 WBC RBC Hgb Hct MCV MCH MCHC RDW Plt Count MPV Absolute Neuts (auto) Neutrophils % Lymphocytes % Monocytes % Eosinophils % Basophils % Nucleated RBC % PTT (Actin FS) Sodium Potassium Chloride Carbon Dioxide Anion Gap BUN Creatinine Est GFR (CKD-EPI)AfAm Est GFR (CKD-EPI)NonAf POC Glucometer Random Glucose Calcium Iron 46 L TIBC 457 H Iron Saturation 10 L Unsaturated IBC 411 H Ferritin 30.0 Total Bilirubin AST ALT Alkaline Phosphatase Total Protein Albumin Vitamin B12 1143 H Serum Folate 6 Free T4 Urine Color Urine Appearance Urine pH Ur Specific [place] Urine Protein Urine Glucose (UA) Urine Ketones Urine Blood Urine Nitrite Urine Bilirubin Urine Urobilinogen Ur Leukocyte Esterase Urine WBC (Auto) Urine RBC (Auto) Urine Casts (Auto) U Epithel Cells (Auto) Urine Bacteria (Auto) Opiates Screen Methadone Screen Barbiturate Screen Phencyclidine Screen Ur Amphetamines Screen MDMA (Ecstasy) Screen Benzodiazepines Screen Cocaine Screen U Marijuana (THC) Screen Current Medications Generic Name Dose Route Start Last Admin Trade Name Freq PRN Reason Stop Dose Admin Acetaminophen 650 mg 06/08/20 15:33 06/08/20 21:33 Tylenol - PO 650 mg Q4H PRN Administration PAIN LEVEL 4 - 6 Atorvastatin Calcium 80 mg 06/08/20 22:00 06/09/20 22:18 Lipitor - PO 80 mg HS NAKIA Administration Clindamycin HCl 300 mg 06/09/20 18:00 06/10/20 05:38 Cleocin - PO 300 mg Q6HPO NAKIA Administration Clopidogrel Bisulfate 75 mg 06/09/20 10:00 06/10/20 10:52 Plavix - PO 75 mg DAILY NAKIA Administration Diazepam 10 mg 06/10/20 22:00 Valium - PO BID NAKIA Gabapentin 800 mg 06/08/20 22:00 06/09/20 22:18 Neurontin - PO 800 mg HS NAKIA Administration Heparin Sodium (Porcine) 1,000 unit 06/08/20 19:30 Heparin - IVPUSH PRN PRN Heparin Heparin Sodium (Porcine) 5,000 unit 06/08/20 19:30 06/09/20 22:25 Heparin - IVPUSH 5,000 unit PRN PRN Administration Heparin Heparin Sodium (Porcine) 25, 500 mls @ 16 mls/hr 06/08/20 19:30 06/09/20 22:26 000 unit/ Sodium Chloride IV 1,050 unit/hr TITR NAKIA 21 mls/hr Administration Protocol 800 UNIT/HR Insulin Aspart 1 vial 06/08/20 16:30 06/10/20 06:39 Novolog Vial Sliding Scale - SQ Not Given TIDAC [facility] Protocol Insulin Detemir 5 units 06/08/20 22:00 06/10/20 06:39 Levemir Vial SQ 5 units BID@0700,2200 NAKIA Administration Metoprolol Tartrate 25 mg 06/08/20 22:00 06/10/20 10:52 Lopressor - PO 25 mg BID NAKIA Administration Oxycodone HCl 5 mg 06/09/20 09:19 06/10/20 11:01 Roxicodone - PO 5 mg Q6H PRN Administration PAIN LEVEL 6-10 Pantoprazole Sodium 40 mg 06/09/20 10:00 06/10/20 10:51 Protonix - PO 40 mg DAILY NAKIA Administration Ranolazine 500 mg 06/08/20 22:00 06/10/20 10:52 Ranexa - PO 500 mg BID NAKIA Administration Home Medications Medication Instructions Recorded Aspirin [Aspirin EC] 81 mg PO DAILY 11/13/15 Gabapentin 800 mg PO QID 05/06/18 Pantoprazole Sodium [Protonix] 40 mg PO DAILY 05/06/18 Quetiapine Fumarate [Seroquel -] 25 mg PO HS 05/06/18 Atorvastatin Ca [Lipitor] 80 mg PO HS tablet 11/07/18 Clopidogrel Bisulfate [Plavix -] 75 mg PO DAILY tablet 11/07/18 metFORMIN HCL [Metformin ER 1,000 mg PO BID 03/01/19 Gastric] Metoprolol Tartrate 25 mg PO BID 10/01/19 Ranolazine [Ranexa -] 500 mg PO BID #60 tab 10/02/19 ASSESSMENT AND PLAN: 40 year old female with history of CAD s/p NSTEMIs (s/p 6 stents, CABG x 3 vessel at [place] 11/06), Chronic Diastolic CHF, HTN, HLD, Gastritis, DM 2, CKD 3, Anxiety/Depression, Polysubstance Abuse (THC, Ecstasy, Amphetamines, MJ), presents with left leg ulcer and foot pain. 1. L 3rd toe/leg ulcer infection Initially placed on Meropenem/Vanco - transitioned to Clindamycin PO by ID Afebrile, Hemodynamically Stable. Seen by Podiatry - local wound care with Mupirocin and dry gauze Wound Care clinic as out-patient. 2. Chronic Limb Ischemia - bilateral feet cool without palpable pulses. US Duplex LEs - moderate atherosclerotic disease with abnormal distal flow CTA Aorta with runoff - distal popliteal occlusion with collaterals. Vascular Surgery consulted - for Angio once cleared by Cardiology. Heparin drip pending Vascular Surgery Ix. Vasculitis work-up ordered 3. DM 2 - Uncontrolled, A1C 7.8. Metformin held. Maintain on Levemir, Novolog sliding scale. 4. CAD s/p CABG - normally on Aspirin/Plavix/Metoprolol/Statin 5. Anxiety/Depression - previously on Quetiapine Reported Suicidal Ideation - denied by patient. Evaluated by Toni - cleared medically, has capacity - started on Valium for Anxiety. 6. Low TSH 0.35 - free T4 wnl. Repeat TFTs in 3-4 weeks once acute illness resolves. 7. Normocytic Anemia - Iron deficiency on labs. IV Venofer ordered. No evidence of overt bleeding. FOBT requested. 8. Polysubstance Abuse (Utox positive for THC, Ecstasy, Amphetamines, MJ) - denies drug use except for MJ. DVT Px - on Heparin gtt
[2020-06-10] MEDS ORDERED: PT OWN MED DRAWER 7, Y5N ONE ×2 (18:53→21:09)
[2020-06-10] MEDS: HEPARIN - 25,000 UNIT in SODIUM CHLORIDE 495 ML IV SCH (18:54)
[2020-06-10] MEDS: ATORVASTATIN CA 80 MG TABLET (FP) PO SCH (21:25)
[2020-06-10] MEDS: GABAPENTIN 400 MG CAPSULE PO SCH (21:25)
[2020-06-10] MEDS: diazePAM 5 MG TABLET PO SCH (21:25)
[2020-06-10] MEDS: ACETAMINOPHEN 325 MG TABLET (FP) PO PRN (21:34)
[2020-06-11] MEDS: CLINDAMYCIN HCL 150 MG CAPSULE (FP) PO SCH ×5 (00:57→23:50)
[2020-06-11] MEDS: oxyCODONE HCL 5 MG TABLET PO PRN ×3 (06:05→21:09)
[2020-06-11] MEDS: INSULIN (LEVEMIR) 100 UNITS/ML UNITS SQ SCH ×2 (06:05→21:08)
[2020-06-11] MEDS: ACETAMINOPHEN 325 MG TABLET (FP) PO PRN ×3 (06:06→21:10)
[2020-06-11] MEDS: INSULIN SLIDING SCALE (NOVOLOG) 1 VIAL SQ SCH ×3 (06:07→17:25)
[2020-06-11 06:40] LABS: BASO % 1.3 % (0-2.0); EOS % 3.6 % (0-4.5); HEMATOCRIT 28.4 % (32.4-45.2); HEMOGLOBIN 9.4 GM/dL (10.7-15.3); LYMPH % 28.2 % (8-40); MCH 28.5 pg (25.7-33.7); MCHC 33.1 g/dl (32.0-36.0); MEAN CELL VOLUME 86.1 fl (80-96); MEAN PLT VOLUME 7.5 fl (7.5-11.1); MONO % 10.4 % (3.8-10.2); NEUT % 56.5 % (42.8-82.8); PLATELET COUNT 327 K/MM3 (134-434); RDW 17.6 % (11.6-15.6); WHITE BLOOD COUNT 5.5 K/mm3 (4.0-10.0)
[2020-06-11 06:54] LABS: INR 1.12 (0.83-1.09); PROTHROMBIN TIME (PATIENT) 13.2 SEC (9.7-13.0)
[2020-06-11 07:11] LABS: ALBUMIN 2.8 g/dl (3.4-5.0); BLOOD UREA NITROGEN 7.8 mg/dL (7-18); CALCIUM 8.3 mg/dL (8.5-10.1); CREATININE 0.8 mg/dL (0.55-1.3); POTASSIUM 4.2 mmol/L (3.5-5.1); TOT PROT 5.8 g/dl (6.4-8.2)
[2020-06-11 07:13] LABS: BILIRUBIN,TOTAL 0.2 mg/dL (0.2-1)
[2020-06-11 08:45] LABS: ACTIVATED PTT 72.9 SECONDS (25.2-36.5)
[2020-06-11] MEDS: RANOLAZINE E.R. 500 MG TABLET (FP) PO SCH ×2 (10:12→21:08)
[2020-06-11] MEDS: METOPROLOL TARTRATE 25 MG TABLET (FP) PO SCH ×2 (10:12→21:09)
[2020-06-11] MEDS: CLOPIDOGREL BISULFATE 75 MG TABLET (FP) PO SCH (10:12)
[2020-06-11] MEDS: PANTOPRAZOLE 40 MG TABLET PO SCH (10:12)
[2020-06-11] MEDS: diazePAM 5 MG TABLET PO SCH ×2 (10:13→21:09)
--- NOTE | 2020-06-11 10:23 | PN ---
Progress Note, Physician History of Present Illness: stable no new issues plan for angio today - Current Medication List Current Medications: Active Medications Acetaminophen (Tylenol -) 650 mg PO Q4H PRN PRN Reason: PAIN LEVEL 4 - 6 Last Admin: 06/11/20 06:06 Dose: 650 mg Documented by: Atorvastatin Calcium (Lipitor -) 80 mg PO HS [facility] Last Admin: 06/10/20 21:25 Dose: 80 mg Documented by: Clindamycin HCl (Cleocin -) 300 mg PO Q6HPO [facility] Last Admin: 06/11/20 06:05 Dose: 300 mg Documented by: Clopidogrel Bisulfate (Plavix -) 75 mg PO DAILY [facility] Last Admin: 06/11/20 10:12 Dose: 75 mg Documented by: Diazepam (Valium -) 10 mg PO BID [facility] Last Admin: 06/11/20 10:13 Dose: 10 mg Documented by: Gabapentin (Neurontin -) 800 mg PO [facility] Last Admin: 06/10/20 21:25 Dose: 800 mg Documented by: Heparin Sodium (Porcine) (Heparin -) 1,000 unit IVPUSH PRN PRN PRN Reason: Heparin Heparin Sodium (Porcine) (Heparin -) 5,000 unit IVPUSH PRN PRN PRN Reason: Heparin Last Admin: 06/09/20 22:25 Dose: 5,000 unit Documented by: Heparin Sodium (Porcine) 25, (000 unit/ Sodium Chloride) 500 mls @ 16 mls/hr IV TITR [facility]; Protocol Last Admin: 06/10/20 18:54 Dose: 1,000 unit/hr, 20 mls/hr Documented by: Insulin Aspart (Novolog Vial Sliding Scale -) 1 vial SQ TIDAC [facility]; Protocol Last Admin: 06/11/20 06:07 Dose: 2 unit Documented by: Insulin Detemir (Levemir Vial) 5 units SQ BID@0700,2200 [facility] Last Admin: 06/11/20 06:05 Dose: 5 units Documented by: Metoprolol Tartrate (Lopressor -) 25 mg PO BID [facility] Last Admin: 06/11/20 10:12 Dose: 25 mg Documented by: Oxycodone HCl (Roxicodone -) 5 mg PO Q6H PRN PRN Reason: PAIN LEVEL 6-10 Last Admin: 06/11/20 06:05 Dose: 5 mg Documented by: Pantoprazole Sodium (Protonix -) 40 mg PO DAILY [facility] Last Admin: 06/11/20 10:12 Dose: 40 mg Documented by: Ranolazine (Ranexa -) 500 mg PO BID [facility] Last Admin: 06/11/20 10:12 Dose: 500 mg Documented by: - Objective Vital Signs: Vital Signs Temperature 97.7 F 06/11/20 02:00 Pulse Rate 60 06/11/20 02:00 Respiratory Rate 18 06/11/20 02:00 Blood Pressure 114/60 06/11/20 02:00 O2 Sat by Pulse Oximetry (%) 100 06/11/20 02:00 Constitutional: Yes: No Distress, Calm Cardiovascular: Yes: S1, S2 Respiratory: Yes: Regular, CTA Bilaterally Gastrointestinal: Yes: Normal Bowel Sounds, Soft Musculoskeletal: Yes: WNL Extremities: Yes: WNL Wound/Incision: Yes: Open to air, Other (slough on the wound) Neurological: Yes: Alert, Oriented Labs: CBC, BMP 06/11/20 05:15 06/11/20 05:15 INR, PTT INR 1.12 (0.83-1.09) H 06/11/20 05:15 Assessment/Plan 40 year old female with history of CAD s/p NSTEMIs (s/p 6 stents, CABG x 3 vessel at [place] 11/06), Chronic Diastolic CHF, HTN, HLD, Gastritis, DM 2, CKD 3, Anxiety/Depression, Polysubstance Abuse (THC, Ecstasy), presents with left leg ulcer and foot pain. L 3rd toe/leg ulcer infection DM 2 CAD Anxiety/Depression . Normocytic Anemia plan continue oral abx patient needs debridement for angio today rest as per the team
--- NOTE | 2020-06-11 10:45 | SPA.PREOP ---
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 Main runoff to foot is the posterior tibial artery Planned Procedure: LLE angio, possible angioplasty, possible stent Surgeon: Elgin Vera Last Vital Signs Temp Pulse Resp BP Pulse Ox 97.7 F 60 18 114/60 100 06/11/20 02:00 06/11/20 02:00 06/11/20 02:00 06/11/20 02:00 06/11/20 02:00 Lab Results WBC 5.5 K/mm3 (4.0-10.0) 06/11/20 05:15 RBC 3.30 M/mm3 (3.60-5.2) L 06/11/20 05:15 Hgb 9.4 GM/dL (10.7-15.3) L 06/11/20 05:15 Hct 28.4 % (32.4-45.2) L 06/11/20 05:15 MCV 86.1 fl (80-96) 06/11/20 05:15 MCHC 33.1 g/dl (32.0-36.0) 06/11/20 05:15 RDW 17.6 % (11.6-15.6) H 06/11/20 05:15 Plt Count 327 K/MM3 (134-434) 06/11/20 05:15 INR 1.12 (0.83-1.09) H 06/11/20 05:15 Sodium 137 mmol/L (136-145) 06/11/20 05:15 Potassium 4.2 mmol/L (3.5-5.1) 06/11/20 05:15 Chloride 109 mmol/L (98-107) H 06/11/20 05:15 Carbon Dioxide 25 mmol/L (21-32) 06/11/20 05:15 Anion Gap 3 MMOL/L (8-16) L 06/11/20 05:15 BUN 7.8 mg/dL (7-18) 06/11/20 05:15 Creatinine 0.8 mg/dL (0.55-1.3) 06/11/20 05:15 Random Glucose 145 mg/dL (74-106) H 06/11/20 05:15 Calcium 8.3 mg/dL (8.5-10.1) L 06/11/20 05:15 Laboratory Tests 06/08/20 12:45 COVID-19 (EFREN) Not detected - ASSESSMENT/PLAN 1. Make NPO after midnight except po meds 2. GI/DVT PPX 3. Medical optimization / clearance 4. Consent to be obtained by surgeon after risks, benefits and alternatives discussed with patient and or Health Care Proxy. Visit type - Case Type Case Type: ED Admission
--- NOTE | 2020-06-11 10:46 | SPA.PREOP ---
- PRE-OP NOTE Dx: PAD Planned Procedure: Left leg angiogram Surgeon: Elgin Vera DO Last Vital Signs Temp Pulse Resp BP Pulse Ox 97.7 F 60 18 114/60 100 06/11/20 02:00 06/11/20 02:00 06/11/20 02:00 06/11/20 02:00 06/11/20 02:00 Lab Results WBC 5.5 K/mm3 (4.0-10.0) 06/11/20 05:15 RBC 3.30 M/mm3 (3.60-5.2) L 06/11/20 05:15 Hgb 9.4 GM/dL (10.7-15.3) L 06/11/20 05:15 Hct 28.4 % (32.4-45.2) L 06/11/20 05:15 MCV 86.1 fl (80-96) 06/11/20 05:15 MCHC 33.1 g/dl (32.0-36.0) 06/11/20 05:15 RDW 17.6 % (11.6-15.6) H 06/11/20 05:15 Plt Count 327 K/MM3 (134-434) 06/11/20 05:15 INR 1.12 (0.83-1.09) H 06/11/20 05:15 Sodium 137 mmol/L (136-145) 06/11/20 05:15 Potassium 4.2 mmol/L (3.5-5.1) 06/11/20 05:15 Chloride 109 mmol/L (98-107) H 06/11/20 05:15 Carbon Dioxide 25 mmol/L (21-32) 06/11/20 05:15 Anion Gap 3 MMOL/L (8-16) L 06/11/20 05:15 BUN 7.8 mg/dL (7-18) 06/11/20 05:15 Creatinine 0.8 mg/dL (0.55-1.3) 06/11/20 05:15 Random Glucose 145 mg/dL (74-106) H 06/11/20 05:15 Calcium 8.3 mg/dL (8.5-10.1) L 06/11/20 05:15 - ASSESSMENT/PLAN 1. Make NPO after midnight except po meds 2. GI/DVT PPX 3. Medical optimization / clearance 4. Consent to be obtained by surgeon after risks, benefits and alternatives discussed with patient and or Health Care Proxy.
--- NOTE | 2020-06-11 11:10 | CON.CARD ---
Cardiology Consult (text) - Consultation Consultation Note: Chief Complaint: foot pain History of Present Illness: 40F hx CAD, s/p NSTEMIs, multiple PCI, CABG here with foot pain. Had non healing left foot wound and pain so came to ER. No cp sob palps dizzy loc pnd orthopnea le edema. Sees dr mcnair for cardio. - History Source History Provided By: Patient - Past Medical History Cardio/Vascular: Yes: CAD, CHF, HTN, [place], Hyperlipdemia, Other Pulmonary: Yes: Bronchitis Gastrointestinal: Yes: Gastritis, Other (Gastroparesis). No: Ascites, Cancer, Constipation, Crohn's Disease, Diverticulitis, Diverticulosis, Esophageal Varices, GERD, GI Bleed, Hemorrhoids, Hiatal Hernia, Inflamatory Bowel Disease, Irritable Bowel Disease, Pancreatitis, Peptic Ulcer Disease, Ulcerative Colitis Renal/: Yes: Renal Inusuff ...LMP: 12/05/17 Psych: Yes: Anxiety, Depression, Panic, Other Musculoskeletal: Yes: Other Endocrine: Yes: Diabetes Mellitus - Past Surgical History Past Surgical History: Yes: , Stent, Colonoscopy, Upper Endoscopy, CABG - Alcohol/Substance Use Hx Alcohol Use: No History of Substance Use: reports: Marijuana, Prescription Date of Last Use: 10/07/17 (ecstasy) - Smoking History Smoking history: Never smoked Have you smoked in the past 12 months: No Aproximately how many cigarettes per day: 5 If you are a former smoker, when did you quit?: 12/20/17 - Social History Usual Living Arrangement: Other (with boyfriend) ADL: Independent History of Recent Travel: No Home Medications - Allergies Allergies/Adverse Reactions: Allergies Allergy/AdvReac Type Severity Reaction Status Date / Time cephalexin monohydrate Allergy Severe Hives Verified 06/08/20 11:41 [From Keflex] Ambulatory Orders Aspirin [Aspirin EC] 81 mg PO DAILY 11/13/15 Gabapentin 800 mg PO QID 05/06/18 Pantoprazole Sodium [Protonix] 40 mg PO DAILY 05/06/18 Quetiapine Fumarate [Seroquel -] 25 mg PO HS 05/06/18 Atorvastatin Ca [Lipitor] 80 mg PO HS tablet 11/07/18 Clopidogrel Bisulfate [Plavix -] 75 mg PO DAILY tablet 11/07/18 metFORMIN HCL [Metformin ER Gastric] 1,000 mg PO BID 03/01/19 Metoprolol Tartrate 25 mg PO BID 10/01/19 Ranolazine [Ranexa -] 500 mg PO BID #60 tab 10/02/19 Family Medical History Family History: Unremarkable (not pertient to this presentation) Review of Systems - Review of Systems Constitutional: reports: No Symptoms Eyes: reports: No Symptoms HENT: reports: No Symptoms Neck: reports: No Symptoms Cardiovascular: reports: No symptoms Respiratory: reports: No Symptoms Gastrointestinal: reports: No Symptoms Genitourinary: reports: No Symptoms Breasts: reports: No Symptoms Reported Musculoskeletal: reports: No Symptoms, Neurological: reports: No Symptoms Endocrine: reports: No Symptoms Hematology/Lymphatic: reports: No Symptoms Psychiatric: reports: No Symptoms - Risk Factors Known Risk Factors: Yes: Diabetes Mellitus, Prior [place] /Emb Stroke, Other (known CAD) Vital Signs: Vital Signs Period Temp Pulse Resp BP Sys/Hand Pulse Ox Last 24 Hr 97.4 F-97.8 F 60-72 18-20 111-130/60-76 100-100 Constitutional: Yes: No Distress, Calm Eyes: Yes: Conjunctiva Clear Respiratory: Yes:cta bl nl eff Gastrointestinal: Yes: Soft nt nd pos bs Cardiovascular: Yes: Regular Rate and Rhythm JVD: No Carotid Bruit: No PMI: Non-Displaced Heart Sounds: Yes: S1, S2 (RRR, no M/R/G) Edema: no aao3 - Other Data Labs, Other Data: Laboratory Last Values WBC 5.5 K/mm3 (4.0-10.0) 06/11/20 05:15 RBC 3.30 M/mm3 (3.60-5.2) L 06/11/20 05:15 Hgb 9.4 GM/dL (10.7-15.3) L 06/11/20 05:15 Hct 28.4 % (32.4-45.2) L 06/11/20 05:15 MCV 86.1 fl (80-96) 06/11/20 05:15 MCH 28.5 pg (25.7-33.7) 06/11/20 05:15 MCHC 33.1 g/dl (32.0-36.0) 06/11/20 05:15 RDW 17.6 % (11.6-15.6) H 06/11/20 05:15 Plt Count 327 K/MM3 (134-434) 06/11/20 05:15 MPV 7.5 fl (7.5-11.1) 06/11/20 05:15 Absolute Neuts (auto) 3.1 K/mm3 (1.5-8.0) 06/11/20 05:15 Neutrophils % 56.5 % (42.8-82.8) 06/11/20 05:15 Lymphocytes % 28.2 % (8-40) 06/11/20 05:15 Monocytes % 10.4 % (3.8-10.2) H 06/11/20 05:15 Eosinophils % 3.6 % (0-4.5) 06/11/20 05:15 Basophils % 1.3 % (0-2.0) 06/11/20 05:15 Nucleated RBC % 0 % (0-0) 06/11/20 05:15 PT with INR 13.20 SEC (9.7-13.0) H 06/11/20 05:15 INR 1.12 (0.83-1.09) H 06/11/20 05:15 PTT (Actin FS) 72.9 SECONDS (25.2-36.5) H 06/11/20 05:15 Sodium 137 mmol/L (136-145) 06/11/20 05:15 Potassium 4.2 mmol/L (3.5-5.1) 06/11/20 05:15 Chloride 109 mmol/L (98-107) H 06/11/20 05:15 Carbon Dioxide 25 mmol/L (21-32) 06/11/20 05:15 Anion Gap 3 MMOL/L (8-16) L 06/11/20 05:15 BUN 7.8 mg/dL (7-18) 06/11/20 05:15 Creatinine 0.8 mg/dL (0.55-1.3) 06/11/20 05:15 Est GFR (CKD-EPI)AfAm 105.39 06/11/20 05:15 Est GFR (CKD-EPI)NonAf 90.93 06/11/20 05:15 POC Glucometer 157 UNITS (80-120) 06/11/20 05:47 Random Glucose 145 mg/dL (74-106) H 06/11/20 05:15 Hemoglobin A1c % 7.8 % (4.2-6.3) H 06/09/20 06:18 Lactic Acid 1.2 mmol/L (0.4-2.0) 06/08/20 22:50 Calcium 8.3 mg/dL (8.5-10.1) L 06/11/20 05:15 Iron 46 ug/dL (50-175) L 06/10/20 07:08 TIBC 457 ug/dL (250-450) H 06/10/20 07:08 Iron Saturation 10 % (17.5-39) L 06/10/20 07:08 Unsaturated IBC 411 ug/dL (200-275) H 06/10/20 07:08 Ferritin 30.0 ng/ml (8-388) 06/10/20 07:08 Total Bilirubin 0.2 mg/dL (0.2-1) 06/11/20 05:15 AST 10 U/L (15-37) L 06/11/20 05:15 ALT 15 U/L (13-61) 06/11/20 05:15 Alkaline Phosphatase 39 U/L (45-117) L 06/11/20 05:15 Creatine Kinase 110 U/L (26-192) 06/08/20 22:50 Total Protein 5.8 g/dl (6.4-8.2) L 06/11/20 05:15 Albumin 2.8 g/dl (3.4-5.0) L 06/11/20 05:15 Triglycerides 87 mg/dL (0-150) 06/08/20 14:45 Cholesterol 122 mg/dL (50-200) 06/08/20 14:45 Total LDL Cholesterol 60 mg/dL (5-100) 06/08/20 14:45 HDL Cholesterol 52 mg/dL (40-60) 06/08/20 14:45 Vitamin B12 1143 pg/ml (193-986) H 06/10/20 07:08 Serum Folate 6 ng/mL (3.1-17.5) 06/10/20 07:08 TSH 0.35 uIU/ml (0.358-3.74) L 06/09/20 06:18 Free T4 0.93 ng/dl (0.76-1.46) 06/10/20 07:08 Urine Color Yellow 06/10/20 05:40 Urine Appearance Clear 06/10/20 05:40 Urine pH 5.5 (5.0-8.0) 06/10/20 05:40 Ur Specific Mabel 1.019 (1.010-1.035) 06/10/20 05:40 Urine Protein Negative (NEGATIVE) 06/10/20 05:40 Urine Glucose (UA) Negative (NEGATIVE) 06/10/20 05:40 Urine Ketones Negative (NEGATIVE) 06/10/20 05:40 Urine Blood Negative (NEGATIVE) 06/10/20 05:40 Urine Nitrite Negative (NEGATIVE) 06/10/20 05:40 Urine Bilirubin Negative (NEGATIVE) 06/10/20 05:40 Urine Urobilinogen 0.2 mg/dL (0.2-1.0) 06/10/20 05:40 Ur Leukocyte Esterase Negative (NEGATIVE) 06/10/20 05:40 Urine WBC (Auto) 10 /uL (0-25.8) 06/10/20 05:40 Urine RBC (Auto) 32 /uL (0-23.9) 06/10/20 05:40 Urine Casts (Auto) 0 /uL (0-3.1) 06/10/20 05:40 U Epithel Cells (Auto) 20 /uL (0-25.1) 06/10/20 05:40 Urine Bacteria (Auto) 26 /uL (0-1359) 06/10/20 05:40 Opiates Screen Positive ng/ml (UBVBOE=820) A* 06/10/20 05:40 Methadone Screen Negative ng/ml (AVXSMR=765) 06/10/20 05:40 Barbiturate Screen Negative ng/ml (PRUQLY=509) 06/10/20 05:40 Phencyclidine Screen Negative ng/ml (CUTOFF=25) 06/10/20 05:40 Ur Amphetamines Screen Positive ng/ml (KICPYF=523) A* 06/10/20 05:40 MDMA (Ecstasy) Screen Positive ng/ml (QBTLRU=649) A* 06/10/20 05:40 Benzodiazepines Screen Negative ng/ml (TPIKBG=327) 06/10/20 05:40 Cocaine Screen Negative ng/ml (QNGZCY=889) 06/10/20 05:40 U Marijuana (THC) Screen Positive ng/ml (CUTOFF=50) A* 06/10/20 05:40 ANGEL Screen Negative (.) 06/09/20 13:43 COVID-19 (EFREN) Not detected (Not Detected) 06/08/20 12:45 ecg: sr, nl intervals, nonspec tw changes, no st changes, no sig change prior cxr: clear tele: sinus, artifact echo 09/2019 nl LV/RV function, abnormal diastolic function, PASP 65 mmHG severe pulm HTN Assessment/Plan 40F hx CAD, s/p NSTEMIs, multiple PCI, CABG here with foot pain. cad: -stable no signs acs -no anginal sxs -recent echo with nl lvef -cont bb, ranexa, atorva, plavix htn: -cont bb hld: -stable, cont statin pad, le ulcer: -on abx -vascular following -no cardiac contraindications (intermediate risk) to planned le angio.
--- NOTE | 2020-06-11 11:59 | PN ---
Physical Exam: SUBJECTIVE: Patient seen and examined at bedside. No acute events reported overnight. OBJECTIVE: Vital Signs Period Temp Pulse Resp BP Sys/Hand Pulse Ox Last 24 Hr 97.4 F-97.8 F 60-72 18-20 111-130/60-76 100-100 GENERAL: AAOx3, in no acute distress. mutiple tattoos b/l arms. poor dentataion HEENT: NCAT, PERRLA, EOMI, sclera anicteric, conjunctiva clear, oropharynx clear w/o exudates. MMM. NECK: Normal ROM, supple, no lymphadenopathy, JVD, or masses LUNGS: CTABL no wheezes/ rhonchi/ rales. No distress, speaks in full sentences. No increased work of breathing. HEART: RRR, normal S1 S2, no M/R/G ABDOMEN: Soft, NTND, + BS. No guarding or rebound. No hepatomegaly or splenomegaly. MSK: ROM WNL EXTREMITIES: b/l feet are cooler to palpation compared to rest of body. decreased pedal pulses bilaterally. NEUROLOGICAL: CN II-XII intact. Normal speech, normal gait, no focal sensorimotor deficits. SKIN: duskiness on sole of both feet L more than left. round ulcer with yellow scarring on medial left leg 2-3 in above the ankle Laboratory Results - last 24 hr CBC, BMP 06/11/20 05:15 06/11/20 05:15 06/09/20 06/10/20 06/10/20 13:43 15:40 16:57 WBC RBC Hgb Hct MCV MCH MCHC RDW Plt Count MPV Absolute Neuts (auto) Neutrophils % Lymphocytes % Monocytes % Eosinophils % Basophils % Nucleated RBC % PT with INR INR PTT (Actin FS) 59.3 H Sodium Potassium Chloride Carbon Dioxide Anion Gap BUN Creatinine Est GFR (CKD-EPI)AfAm Est GFR (CKD-EPI)NonAf POC Glucometer 124 Random Glucose Calcium Total Bilirubin AST ALT Alkaline Phosphatase Total Protein Albumin ANGEL Screen Negative 06/10/20 06/11/20 06/11/20 21:23 05:15 05:15 WBC 5.5 RBC 3.30 L Hgb 9.4 L Hct 28.4 L MCV 86.1 MCH 28.5 MCHC 33.1 RDW 17.6 H Plt Count 327 MPV 7.5 Absolute Neuts (auto) 3.1 Neutrophils % 56.5 Lymphocytes % 28.2 Monocytes % 10.4 H Eosinophils % 3.6 Basophils % 1.3 Nucleated RBC % 0 PT with INR 13.20 H INR 1.12 H PTT (Actin FS) 72.9 H Sodium Potassium Chloride Carbon Dioxide Anion Gap BUN Creatinine Est GFR (CKD-EPI)AfAm Est GFR (CKD-EPI)NonAf POC Glucometer 226 Random Glucose Calcium Total Bilirubin AST ALT Alkaline Phosphatase Total Protein Albumin ANGEL Screen 06/11/20 06/11/20 06/11/20 05:15 05:47 11:23 WBC RBC Hgb Hct MCV MCH MCHC RDW Plt Count MPV Absolute Neuts (auto) Neutrophils % Lymphocytes % Monocytes % Eosinophils % Basophils % Nucleated RBC % PT with INR INR PTT (Actin FS) Sodium 137 Potassium 4.2 Chloride 109 H Carbon Dioxide 25 Anion Gap 3 L BUN 7.8 Creatinine 0.8 Est GFR (CKD-EPI)AfAm 105.39 Est GFR (CKD-EPI)NonAf 90.93 POC Glucometer 157 145 Random Glucose 145 H Calcium 8.3 L Total Bilirubin 0.2 AST 10 L ALT 15 Alkaline Phosphatase 39 L Total Protein 5.8 L Albumin 2.8 L ANGEL Screen Active Medications Generic Name Dose Route Start Last Admin Trade Name Freq PRN Reason Stop Dose Admin Acetaminophen 650 mg 06/08/20 15:33 06/11/20 06:06 Tylenol - PO 650 mg Q4H PRN Administration PAIN LEVEL 4 - 6 Atorvastatin Calcium 80 mg 06/08/20 22:00 06/10/20 21:25 Lipitor - PO 80 mg HS NAKIA Administration Clindamycin HCl 300 mg 06/09/20 18:00 06/11/20 11:30 Cleocin - PO 300 mg Q6HPO NAKIA Administration Clopidogrel Bisulfate 75 mg 06/09/20 10:00 06/11/20 10:12 Plavix - PO 75 mg DAILY NAKIA Administration Diazepam 10 mg 06/10/20 22:00 06/11/20 10:13 Valium - PO 10 mg BID NAKIA Administration Gabapentin 800 mg 06/08/20 22:00 06/10/20 21:25 Neurontin - PO 800 mg HS NAKIA Administration Heparin Sodium (Porcine) 1,000 unit 06/08/20 19:30 Heparin - IVPUSH PRN PRN Heparin Heparin Sodium (Porcine) 5,000 unit 06/08/20 19:30 06/09/20 22:25 Heparin - IVPUSH 5,000 unit PRN PRN Administration Heparin Heparin Sodium (Porcine) 25, 500 mls @ 16 mls/hr 06/08/20 19:30 06/10/20 18:54 000 unit/ Sodium Chloride IV 1,000 unit/hr TITR NAKIA 20 mls/hr Administration Protocol 800 UNIT/HR Insulin Aspart 1 vial 06/08/20 16:30 06/11/20 11:30 Novolog Vial Sliding Scale - SQ Not Given TIDAC [facility] Protocol Insulin Detemir 5 units 06/08/20 22:00 06/11/20 06:05 Levemir Vial SQ 5 units BID@0700,2200 NAKIA Administration Metoprolol Tartrate 25 mg 06/08/20 22:00 06/11/20 10:12 Lopressor - PO 25 mg BID NAKIA Administration Oxycodone HCl 5 mg 06/09/20 09:19 06/11/20 06:05 Roxicodone - PO 5 mg Q6H PRN Administration PAIN LEVEL 6-10 Pantoprazole Sodium 40 mg 06/09/20 10:00 06/11/20 10:12 Protonix - PO 40 mg DAILY NAKIA Administration Ranolazine 500 mg 06/08/20 22:00 06/11/20 10:12 Ranexa - PO 500 mg BID NAKIA Administration ASSESSMENT/PLAN: 40 year old female with history of CAD, NSTEMIs, s/p 6 stents, s/p CABG x 3 vessel at [place] in 2019, Chronic Diastolic CHF, HTN, HLD, Gastritis, DM 2, CKD 3, Anxiety/Depression, Polysubstance Abuse (THC, Ecstasy), presenting with left leg ulcer and foot pain. #Chronic limb ischemia -bilateral feet that are cool to palpatation and 1+ distal pulses b/l -CTA Aorta with runoff -L distal popliteal artery occluded w/ collateral flow. trifucation vessels are disease w/ mostly the posterior tibial artery patent into the foot. heavy calcifications. correlate with conventional angiography -US Duplex LEs - moderate atherosclerotic disease with abnormal distal flow -Vascular consult: angio tomorrow with Dr. Vera -cardio consult: cleared for procedure tomorrow -Heparin gtt- will be held tomorrow for OR -Vasculitis work-up ordered -MEDICALLY CLEARED FOR PROCEDURE TOMORROW #L foot/leg ulcer infection -ABX: Clindamycin PO by ID; started on probiotics today -Podiatry consult- local wound care with Mupirocin and dry gauze; f/u outpt #Anxiety/Depression -reported suicidal ideation last night but denies it today -psych consult: patient does not need 1:1; valium 10 mg BID for anxiety; patient has capacity #DM -ISS w/ BGM -continue w/ Levemir #Normocytic Anemia -Iron deficiency noted on labs. -IV Venofer ordered -No evidence of bleeding -FOBT ordered; f/u results #CAD s/p CABG - c/w Metoprolol -c/w Statin -c/w Clopidogrel #Decreased TSH -TSH: 0.35 - free T4 was normal - Repeat TFTs in 3-4 weeks once acute illness resolves #Polysubstance Abuse -Utox positive for THC, Ecstasy, Amphetamines -denies drug use except for marijuana #FEN -no standing fluids -monitor lytes; replete PRN -diabetic/sodium diet; NPO at midnight for OR tm #PPx -DVT: Heparin gtt will be held tm for procedure dispo: continue to monitor in tele Visit type - Emergency Visit Emergency Visit: No - New Patient This patient is new to me today: No - Critical Care Critical Care patient: No - Discharge Referral Referred to [facility] Med P.C.: No ATTENDING PHYSICIAN STATEMENT I saw and evaluated the patient. I reviewed the resident's note and discussed the case with the resident. I agree with the resident's findings and plan as documented. SUBJECTIVE: OBJECTIVE: ASSESSMENT AND PLAN:
--- NOTE | 2020-06-11 14:26 | PN ---
Teaching Attending Note Name of Resident: Duy Marie ATTENDING PHYSICIAN STATEMENT I saw and evaluated the patient. I reviewed the resident's note and discussed the case with the resident. I agree with the resident's findings and plan as documented. SUBJECTIVE: Reports some improvement in L foot swelling and pain. No fever/chills. OBJECTIVE: Afebrile, Hemodynamically Stable. Last Vital Signs Temp Pulse Resp BP Pulse Ox 98.1 F 64 18 125/71 100 06/11/20 13:56 06/11/20 13:56 06/11/20 13:56 06/11/20 13:56 06/11/20 09:00 Heart - S1, S2, RRR Lungs - clear to auscultation Abdomen - Soft, non-tender. Bowel Sounds normal. Extremities - Cool extremities, pulses not palpable. LLE mid-petit ulcer medial aspect and L third digit ulcer with toe discoloration and discoloration on plantar aspect L foot. Neuro - AAO x 3. Tone/Power normal Laboratory Results - last 24 hr 06/09/20 06/10/20 06/10/20 13:43 15:40 16:57 WBC RBC Hgb Hct MCV MCH MCHC RDW Plt Count MPV Absolute Neuts (auto) Neutrophils % Lymphocytes % Monocytes % Eosinophils % Basophils % Nucleated RBC % PT with INR INR PTT (Actin FS) 59.3 H Sodium Potassium Chloride Carbon Dioxide Anion Gap BUN Creatinine Est GFR (CKD-EPI)AfAm Est GFR (CKD-EPI)NonAf POC Glucometer 124 Random Glucose Calcium Total Bilirubin AST ALT Alkaline Phosphatase Total Protein Albumin ANGEL Screen Negative 06/10/20 06/11/20 06/11/20 21:23 05:15 05:15 WBC 5.5 RBC 3.30 L Hgb 9.4 L Hct 28.4 L MCV 86.1 MCH 28.5 MCHC 33.1 RDW 17.6 H Plt Count 327 MPV 7.5 Absolute Neuts (auto) 3.1 Neutrophils % 56.5 Lymphocytes % 28.2 Monocytes % 10.4 H Eosinophils % 3.6 Basophils % 1.3 Nucleated RBC % 0 PT with INR 13.20 H INR 1.12 H PTT (Actin FS) 72.9 H Sodium Potassium Chloride Carbon Dioxide Anion Gap BUN Creatinine Est GFR (CKD-EPI)AfAm Est GFR (CKD-EPI)NonAf POC Glucometer 226 Random Glucose Calcium Total Bilirubin AST ALT Alkaline Phosphatase Total Protein Albumin ANGEL Screen 06/11/20 06/11/20 06/11/20 05:15 05:47 11:23 WBC RBC Hgb Hct MCV MCH MCHC RDW Plt Count MPV Absolute Neuts (auto) Neutrophils % Lymphocytes % Monocytes % Eosinophils % Basophils % Nucleated RBC % PT with INR INR PTT (Actin FS) Sodium 137 Potassium 4.2 Chloride 109 H Carbon Dioxide 25 Anion Gap 3 L BUN 7.8 Creatinine 0.8 Est GFR (CKD-EPI)AfAm 105.39 Est GFR (CKD-EPI)NonAf 90.93 POC Glucometer 157 145 Random Glucose 145 H Calcium 8.3 L Total Bilirubin 0.2 AST 10 L ALT 15 Alkaline Phosphatase 39 L Total Protein 5.8 L Albumin 2.8 L ANGEL Screen Current Medications Generic Name Dose Route Start Last Admin Trade Name Freq PRN Reason Stop Dose Admin Acetaminophen 650 mg 06/08/20 15:33 06/11/20 13:09 Tylenol - PO 650 mg Q4H PRN Administration PAIN LEVEL 4 - 6 Atorvastatin Calcium 80 mg 06/08/20 22:00 06/10/20 21:25 Lipitor - PO 80 mg HS NAKIA Administration Clindamycin HCl 300 mg 06/09/20 18:00 06/11/20 11:30 Cleocin - PO 300 mg Q6HPO NAKIA Administration Clopidogrel Bisulfate 75 mg 06/09/20 10:00 06/11/20 10:12 Plavix - PO 75 mg DAILY NAKIA Administration Diazepam 10 mg 06/10/20 22:00 06/11/20 10:13 Valium - PO 10 mg BID NAKIA Administration Gabapentin 800 mg 06/08/20 22:00 06/10/20 21:25 Neurontin - PO 800 mg HS NAKIA Administration Heparin Sodium (Porcine) 1,000 unit 06/08/20 19:30 Heparin - IVPUSH 06/12/20 05:00 PRN PRN Heparin Heparin Sodium (Porcine) 5,000 unit 06/08/20 19:30 06/09/20 22:25 Heparin - IVPUSH 06/12/20 05:00 5,000 unit PRN PRN Administration Heparin Heparin Sodium (Porcine) 25, 500 mls @ 16 mls/hr 06/08/20 19:30 06/10/20 18:54 000 unit/ Sodium Chloride IV 1,000 unit/hr TITR NAKIA 20 mls/hr Administration Protocol 800 UNIT/HR Insulin Aspart 1 vial 06/08/20 16:30 06/11/20 11:30 Novolog Vial Sliding Scale - SQ Not Given TIDAC [facility] Protocol Insulin Detemir 5 units 06/08/20 22:00 06/11/20 06:05 Levemir Vial SQ 5 units BID@0700,2200 NAKIA Administration Metoprolol Tartrate 25 mg 06/08/20 22:00 06/11/20 10:12 Lopressor - PO 25 mg BID NAKIA Administration Oxycodone HCl 5 mg 06/09/20 09:19 06/11/20 13:08 Roxicodone - PO 5 mg Q6H PRN Administration PAIN LEVEL 6-10 Pantoprazole Sodium 40 mg 06/09/20 10:00 06/11/20 10:12 Protonix - PO 40 mg DAILY NAKIA Administration Ranolazine 500 mg 06/08/20 22:00 06/11/20 10:12 Ranexa - PO 500 mg BID NAKIA Administration Home Medications Medication Instructions Recorded Aspirin [Aspirin EC] 81 mg PO DAILY 11/13/15 Gabapentin 800 mg PO QID 05/06/18 Pantoprazole Sodium [Protonix] 40 mg PO DAILY 05/06/18 Quetiapine Fumarate [Seroquel -] 25 mg PO HS 05/06/18 Atorvastatin Ca [Lipitor] 80 mg PO HS tablet 11/07/18 Clopidogrel Bisulfate [Plavix -] 75 mg PO DAILY tablet 11/07/18 metFORMIN HCL [Metformin ER 1,000 mg PO BID 03/01/19 Gastric] Metoprolol Tartrate 25 mg PO BID 10/01/19 Ranolazine [Ranexa -] 500 mg PO BID #60 tab 10/02/19 ASSESSMENT AND PLAN: 40 year old female with history of CAD s/p NSTEMIs (s/p 6 stents, CABG x 3 vessel at [place] 11/06), Chronic Diastolic CHF, HTN, HLD, Gastritis, DM 2, CKD 3, Anxiety/Depression, Polysubstance Abuse (THC, Ecstasy, Amphetamines, MJ), presents with left leg ulcer and foot pain. 1. L 3rd toe/leg ulcer infection Initially placed on Meropenem/Vanco - transitioned to Clindamycin PO by ID. Will add probiotics. Afebrile, Hemodynamically Stable. Seen by Podiatry - recommend local wound care with Mupirocin and dry gauze, with Wound Care clinic follow-up as out-patient. 2. Chronic Limb Ischemia - bilateral feet cool without palpable pulses. US Duplex LEs - moderate atherosclerotic disease with abnormal distal flow CTA Aorta with runoff - distal popliteal occlusion with collaterals. Vascular Surgery consulted - Angiogram scheduled 06/12 Heparin drip pending Vascular Surgery intervention. Vasculitis work-up ordered, ANGEL negative. ANCAs pending. Risk stratification by Cardiology. Medically optimized. 3. DM 2 - Uncontrolled, A1C 7.8. Metformin held. Maintain on Levemir, Novolog sliding scale. 4. CAD s/p CABG - normally on Aspirin/Plavix/Metoprolol/Statin 5. Anxiety/Depression - previously on Quetiapine Reported Suicidal Ideation - denied by patient. Evaluated by Toni - cleared medically, has capacity - started on Valium for Anxiety. Home Seroquel stopped by Psychiatry. 6. Low TSH 0.35 - free T4 wnl. Repeat TFTs in 3-4 weeks once acute illness resolves. 7. Normocytic Anemia - Iron deficiency on labs. s/p IV Venofer. No evidence of overt bleeding. FOBT requested. 8. Polysubstance Abuse (Utox positive for THC, Ecstasy, Amphetamines, MJ) - denies drug use except for MJ. 9. HTN - continue Metoprolol. DVT Px - on Heparin gtt
[2020-06-11 16:08] LABS: ATYPICAL pANCA <1:20 titer (Neg:<1:20); C-ANCA <1:20 titer (Neg:<1:20)
[2020-06-11] MEDS: LACTOBACILLUS ACIDOPHILUS 1 TABLET PO SCH ×2 (16:19→21:09)
[2020-06-11] MEDS ORDERED: PT OWN MED DRAWER 7, Y5N ONE (21:01)
[2020-06-11] MEDS: GABAPENTIN 400 MG CAPSULE PO SCH (21:08)
[2020-06-11] MEDS: ATORVASTATIN CA 80 MG TABLET (FP) PO SCH (21:09)
[2020-06-11] MEDS: HEPARIN - 25,000 UNIT in SODIUM CHLORIDE 495 ML IV SCH (23:49)
[2020-06-12] MEDS: INSULIN (LEVEMIR) 100 UNITS/ML UNITS SQ SCH ×2 (06:01→21:20)
[2020-06-12] MEDS: CLINDAMYCIN HCL 150 MG CAPSULE (FP) PO SCH ×3 (06:01→17:48)
[2020-06-12] MEDS: LACTOBACILLUS ACIDOPHILUS 1 TABLET PO SCH ×3 (06:01→21:19)
[2020-06-12] MEDS: INSULIN SLIDING SCALE (NOVOLOG) 1 VIAL SQ SCH ×3 (06:02→17:05)
--- NOTE | 2020-06-12 06:02 | PN ---
Progress Note, Physician Chief Complaint: denies CP, sob, palps - Current Medication List Current Medications: Active Medications Acetaminophen (Tylenol -) 650 mg PO Q4H PRN PRN Reason: PAIN LEVEL 4 - 6 Last Admin: 06/11/20 21:10 Dose: 650 mg Documented by: Atorvastatin Calcium (Lipitor -) 80 mg PO HS [facility] Last Admin: 06/11/20 21:09 Dose: 80 mg Documented by: Clindamycin HCl (Cleocin -) 300 mg PO Q6HPO [facility] Last Admin: 06/11/20 23:50 Dose: 300 mg Documented by: Clopidogrel Bisulfate (Plavix -) 75 mg PO DAILY [facility] Last Admin: 06/11/20 10:12 Dose: 75 mg Documented by: Diazepam (Valium -) 10 mg PO BID [facility] Last Admin: 06/11/20 21:09 Dose: 10 mg Documented by: Gabapentin (Neurontin -) 800 mg PO [facility] Last Admin: 06/11/20 21:08 Dose: 800 mg Documented by: Heparin Sodium (Porcine) 25, (000 unit/ Sodium Chloride) 500 mls @ 16 mls/hr IV TITR [facility]; Protocol Last Admin: 06/11/20 23:49 Dose: 1,000 unit/hr, 20 mls/hr Documented by: Insulin Aspart (Novolog Vial Sliding Scale -) 1 vial SQ TIDAC [facility]; Protocol Last Admin: 06/11/20 17:25 Dose: 2 unit Documented by: Insulin Detemir (Levemir Vial) 5 units SQ BID@0700,2200 [facility] Last Admin: 06/11/20 21:08 Dose: 5 units Documented by: Lactobacillus Acidophilus (Bacid -) 1 tab PO TID [facility] Last Admin: 06/11/20 21:09 Dose: 1 tab Documented by: Metoprolol Tartrate (Lopressor -) 25 mg PO BID [facility] Last Admin: 06/11/20 21:09 Dose: 25 mg Documented by: Oxycodone HCl (Roxicodone -) 5 mg PO Q6H PRN PRN Reason: PAIN LEVEL 6-10 Last Admin: 06/11/20 21:09 Dose: 5 mg Documented by: Pantoprazole Sodium (Protonix -) 40 mg PO DAILY [facility] Last Admin: 06/11/20 10:12 Dose: 40 mg Documented by: Ranolazine (Ranexa -) 500 mg PO BID [facility] Last Admin: 06/11/20 21:08 Dose: 500 mg Documented by: - Objective Vital Signs: Vital Signs Temperature 97.6 F 06/11/20 22:27 Pulse Rate 64 06/11/20 22:27 Respiratory Rate 20 06/11/20 22:27 Blood Pressure 127/84 06/11/20 22:27 O2 Sat by Pulse Oximetry (%) 99 06/11/20 22:27 Constitutional: Yes: No Distress, Calm Cardiovascular: Yes: Regular Rate and Rhythm Respiratory: Yes: CTA Bilaterally Gastrointestinal: Yes: Soft (nt) Edema: No Peripheral Pulses WNL: No Neurological: Yes: Alert, Oriented ...Motor Strength: WNL Labs: CBC, BMP 06/11/20 05:15 06/11/20 05:15 INR, PTT INR 1.12 (0.83-1.09) H 06/11/20 05:15 Laboratory Tests 10/01/19 10/01/19 10/01/19 10:50 10:50 10:50 WBC 9.5 Hgb 11.0 Hct Plt Count 304 INR 1.04 Sodium Potassium Creatinine Creatine Kinase 168 Troponin I 0.03 Serum , Qual Opiates Screen Methadone Screen Barbiturate Screen Phencyclidine Screen Ur Amphetamines Screen MDMA (Ecstasy) Screen Benzodiazepines Screen Cocaine Screen U Marijuana (THC) Screen 10/01/19 10/01/19 10/01/19 10:50 10:50 13:02 WBC Hgb Hct Plt Count INR Sodium 134 L Potassium 4.6 Creatinine 1.0 Creatine Kinase Troponin I Serum , Qual Negative Opiates Screen Positive A* Methadone Screen Negative Barbiturate Screen Negative Phencyclidine Screen Negative Ur Amphetamines Screen Negative MDMA (Ecstasy) Screen Negative Benzodiazepines Screen Negative Cocaine Screen Negative U Marijuana (THC) Screen Positive A* 06/12/20 06/12/20 05:30 05:30 WBC 6.5 Hgb 9.6 L Hct 28.9 L Plt Count 324 INR Sodium 137 Potassium 3.9 Creatinine 0.8 Creatine Kinase Troponin I Serum , Qual Opiates Screen Methadone Screen Barbiturate Screen Phencyclidine Screen Ur Amphetamines Screen MDMA (Ecstasy) Screen Benzodiazepines Screen Cocaine Screen U Marijuana (THC) Screen - ....Imaging EKG: Image Reviewed (TELE: NSR with artifact) Assessment/Plan echo 09/2019 nl LV/RV function, abnormal diastolic function, PASP 65 mmHG severe pulm HTN Assessment/Plan 40F hx CAD, s/p NSTEMIs, multiple PCI, CABG here with foot pain. cad: -stable no signs acs -no anginal sxs -recent echo with nl lvef -cont bb, ranexa, atorva, plavix htn: -cont bb hld: -stable, cont statin pad, le ulcer: -on abx -vascular following -no cardiac contraindications (intermediate risk) to planned le angio.
[2020-06-12 06:52] LABS: BASO % 0.7 % (0-2.0); EOS % 3.2 % (0-4.5); HEMATOCRIT 28.9 % (32.4-45.2); HEMOGLOBIN 9.6 GM/dL (10.7-15.3); LYMPH % 18.2 % (8-40); MCH 28.7 pg (25.7-33.7); MCHC 33.1 g/dl (32.0-36.0); MEAN CELL VOLUME 86.8 fl (80-96); MEAN PLT VOLUME 7.7 fl (7.5-11.1); MONO % 8.4 % (3.8-10.2); NEUT % 69.5 % (42.8-82.8); PLATELET COUNT 324 K/MM3 (134-434); RBC 3.33 M/mm3 (3.60-5.2); RDW 17.4 % (11.6-15.6); WHITE BLOOD COUNT 6.5 K/mm3 (4.0-10.0)
[2020-06-12 06:56] LABS: INR 1.14 (0.83-1.09); PROTHROMBIN TIME (PATIENT) 13.5 SEC (9.7-13.0)
[2020-06-12 07:02] LABS: ACTIVATED PTT 62.5 SECONDS (25.2-36.5)
[2020-06-12 07:15] LABS: ALBUMIN 2.9 g/dl (3.4-5.0); BILIRUBIN,TOTAL 0.6 mg/dL (0.2-1); BLOOD UREA NITROGEN 6.6 mg/dL (7-18); CALCIUM 8.7 mg/dL (8.5-10.1); CREATININE 0.8 mg/dL (0.55-1.3); POTASSIUM 3.9 mmol/L (3.5-5.1)
[2020-06-12] MEDS ORDERED: INSULIN (NOVOLOG) ASPART 100 UNITS/ML 10ML VIAL ONE ×2 (07:22→11:47)
[2020-06-12] MEDS: ACETAMINOPHEN 325 MG TABLET (FP) PO PRN ×3 (08:15→21:21)
[2020-06-12] MEDS: oxyCODONE HCL 5 MG TABLET PO PRN ×3 (08:16→23:26)
[2020-06-12] MEDS: PANTOPRAZOLE 40 MG TABLET PO SCH (09:17)
[2020-06-12] MEDS: CLOPIDOGREL BISULFATE 75 MG TABLET (FP) PO SCH (09:17)
[2020-06-12] MEDS: diazePAM 5 MG TABLET PO SCH ×2 (09:17→21:19)
[2020-06-12] MEDS: METOPROLOL TARTRATE 25 MG TABLET (FP) PO SCH ×2 (09:17→21:19)
[2020-06-12] MEDS: RANOLAZINE E.R. 500 MG TABLET (FP) PO SCH ×2 (09:17→21:20)
[2020-06-12] MEDS ORDERED: SODIUM CHLORIDE 0.45% 1,000 ML IV SCH ×2 (11:00→19:22)
--- NOTE | 2020-06-12 11:29 | PN ---
Progress Note, Physician - Current Medication List Current Medications: Active Medications Acetaminophen (Tylenol -) 650 mg PO Q4H PRN PRN Reason: PAIN LEVEL 4 - 6 Last Admin: 06/12/20 08:15 Dose: 650 mg Documented by: Atorvastatin Calcium (Lipitor -) 80 mg PO HS [facility] Last Admin: 06/11/20 21:09 Dose: 80 mg Documented by: Clindamycin HCl (Cleocin -) 300 mg PO Q6HPO [facility] Last Admin: 06/12/20 11:05 Dose: Not Given Documented by: Clopidogrel Bisulfate (Plavix -) 75 mg PO DAILY [facility] Last Admin: 06/12/20 09:17 Dose: 75 mg Documented by: Diazepam (Valium -) 10 mg PO BID [facility] Last Admin: 06/12/20 09:17 Dose: 10 mg Documented by: Gabapentin (Neurontin -) 800 mg PO [facility] Last Admin: 06/11/20 21:08 Dose: 800 mg Documented by: Sodium Chloride (1/2 Normal Saline) 1,000 mls @ 75 mls/hr IV ASDIR [facility] Stop: 06/13/20 00:19 Last Admin: 06/12/20 10:56 Dose: 75 mls/hr Documented by: Insulin Aspart (Novolog Vial Sliding Scale -) 1 vial SQ TIDAC [facility]; Protocol Last Admin: 06/12/20 10:53 Dose: Not Given Documented by: Insulin Detemir (Levemir Vial) 5 units SQ BID@0700,2200 [facility] Last Admin: 06/12/20 06:01 Dose: Not Given Documented by: Lactobacillus Acidophilus (Bacid -) 1 tab PO TID [facility] Last Admin: 06/12/20 06:01 Dose: Not Given Documented by: Metoprolol Tartrate (Lopressor -) 25 mg PO BID [facility] Last Admin: 06/12/20 09:17 Dose: 25 mg Documented by: Oxycodone HCl (Roxicodone -) 5 mg PO Q6H PRN PRN Reason: PAIN LEVEL 6-10 Last Admin: 06/12/20 08:16 Dose: 5 mg Documented by: Pantoprazole Sodium (Protonix -) 40 mg PO DAILY [facility] Last Admin: 06/12/20 09:17 Dose: 40 mg Documented by: Ranolazine (Ranexa -) 500 mg PO BID [facility] Last Admin: 06/12/20 09:17 Dose: 500 mg Documented by: - Objective Vital Signs: Vital Signs Temperature 97.8 F 06/12/20 10:36 Pulse Rate 70 06/12/20 10:36 Respiratory Rate 18 06/12/20 10:36 Blood Pressure 135/84 06/12/20 10:36 O2 Sat by Pulse Oximetry (%) 98 06/12/20 10:36 Labs: CBC, BMP 06/12/20 05:30 06/12/20 05:30 INR, PTT INR 1.14 (0.83-1.09) H 06/12/20 05:30
--- NOTE | 2020-06-12 12:06 | PN ---
Physical Exam: SUBJECTIVE: Patient seen and examined at bedside. No acute events reported overnight. OBJECTIVE: Vital Signs Period Temp Pulse Resp BP Sys/Hand Pulse Ox Last 24 Hr 97.2 F-98.1 F 62-70 18-20 93-136/56-84 98-100 GENERAL: AAOx3, in no acute distress. multiple tattoos b/l arms. poor dentataion HEENT: NCAT, PERRLA, EOMI, sclera anicteric, conjunctiva clear, oropharynx clear w/o exudates. MMM. NECK: Normal ROM, supple, no lymphadenopathy, JVD, or masses LUNGS: CTABL no wheezes/ rhonchi/ rales. No distress, speaks in full sentences. No increased work of breathing. HEART: RRR, normal S1 S2, no M/R/G ABDOMEN: Soft, NTND, + BS. No guarding or rebound. No hepatomegaly or splenomegaly. MSK: ROM WNL EXTREMITIES: b/l feet are cooler to palpation compared to rest of body. decreased pedal pulses bilaterally. NEUROLOGICAL: CN II-XII intact. Normal speech, normal gait, no focal sensorimotor deficits. SKIN: duskiness on sole of both feet L more than left. round ulcer with yellow scarring on medial left leg 2-3 in above the ankle Laboratory Results - last 24 hr CBC, BMP 06/12/20 05:30 06/12/20 05:30 06/09/20 06/11/20 06/11/20 13:43 16:32 20:57 WBC RBC Hgb Hct MCV MCH MCHC RDW Plt Count MPV Absolute Neuts (auto) Neutrophils % Lymphocytes % Monocytes % Eosinophils % Basophils % Nucleated RBC % PT with INR INR PTT (Actin FS) Sodium Potassium Chloride Carbon Dioxide Anion Gap BUN Creatinine Est GFR (CKD-EPI)AfAm Est GFR (CKD-EPI)NonAf POC Glucometer 195 161 Random Glucose Calcium Total Bilirubin AST ALT Alkaline Phosphatase Total Protein Albumin c-ANCA <1:20 Proteinase 3 (PR3) <3.5 p-ANCA <1:20 Atypical p-ANCA <1:20 Myeloperoxidase Ab <9.0 Crossmatch 06/12/20 06/12/20 06/12/20 05:30 05:30 05:30 WBC 6.5 RBC 3.33 L Hgb 9.6 L Hct 28.9 L MCV 86.8 MCH 28.7 MCHC 33.1 RDW 17.4 H Plt Count 324 MPV 7.7 Absolute Neuts (auto) 4.5 Neutrophils % 69.5 D Lymphocytes % 18.2 D Monocytes % 8.4 Eosinophils % 3.2 Basophils % 0.7 Nucleated RBC % 0 PT with INR 13.50 H INR 1.14 H PTT (Actin FS) 62.5 H Sodium 137 Potassium 3.9 Chloride 107 Carbon Dioxide 24 Anion Gap 6 L BUN 6.6 L Creatinine 0.8 Est GFR (CKD-EPI)AfAm 105.39 Est GFR (CKD-EPI)NonAf 90.93 POC Glucometer Random Glucose 194 H Calcium 8.7 Total Bilirubin 0.6 AST 11 L ALT 15 Alkaline Phosphatase 39 L Total Protein 6.0 L Albumin 2.9 L c-ANCA Proteinase 3 (PR3) p-ANCA Atypical p-ANCA Myeloperoxidase Ab Crossmatch 06/12/20 06/12/20 06/12/20 05:56 09:55 10:45 WBC RBC Hgb Hct MCV MCH MCHC RDW Plt Count MPV Absolute Neuts (auto) Neutrophils % Lymphocytes % Monocytes % Eosinophils % Basophils % Nucleated RBC % PT with INR INR PTT (Actin FS) Sodium Potassium Chloride Carbon Dioxide Anion Gap BUN Creatinine Est GFR (CKD-EPI)AfAm Est GFR (CKD-EPI)NonAf POC Glucometer 184 145 Random Glucose Calcium Total Bilirubin AST ALT Alkaline Phosphatase Total Protein Albumin c-ANCA Proteinase 3 (PR3) p-ANCA Atypical p-ANCA Myeloperoxidase Ab Crossmatch See Detail Active Medications Generic Name Dose Route Start Last Admin Trade Name Freq PRN Reason Stop Dose Admin Acetaminophen 650 mg 06/08/20 15:33 06/12/20 08:15 Tylenol - PO 650 mg Q4H PRN Administration PAIN LEVEL 4 - 6 Atorvastatin Calcium 80 mg 06/08/20 22:00 06/11/20 21:09 Lipitor - PO 80 mg HS NAKIA Administration Clindamycin HCl 300 mg 06/09/20 18:00 06/12/20 11:05 Cleocin - PO Not Given Q6HPO NAKIA Clopidogrel Bisulfate 75 mg 06/09/20 10:00 06/12/20 09:17 Plavix - PO 75 mg DAILY NAKIA Administration Diazepam 10 mg 06/10/20 22:00 06/12/20 09:17 Valium - PO 10 mg BID NAKIA Administration Gabapentin 800 mg 06/08/20 22:00 06/11/20 21:08 Neurontin - PO 800 mg HS NAKIA Administration Sodium Chloride 1,000 mls @ 75 mls/hr 06/12/20 11:00 06/12/20 10:56 1/2 Normal Saline IV 06/13/20 00:19 75 mls/hr ASDIR NAKIA Administration Insulin Aspart 1 vial 06/08/20 16:30 06/12/20 10:53 Novolog Vial Sliding Scale - SQ Not Given TIDAC [facility] Protocol Insulin Detemir 5 units 06/08/20 22:00 06/12/20 06:01 Levemir Vial SQ Not Given BID@0700,2200 [facility] Lactobacillus Acidophilus 1 tab 06/11/20 15:15 06/12/20 06:01 Bacid - PO Not Given TID NAKIA Metoprolol Tartrate 25 mg 06/08/20 22:00 06/12/20 09:17 Lopressor - PO 25 mg BID NAKIA Administration Oxycodone HCl 5 mg 06/09/20 09:19 06/12/20 08:16 Roxicodone - PO 5 mg Q6H PRN Administration PAIN LEVEL 6-10 Pantoprazole Sodium 40 mg 06/09/20 10:00 06/12/20 09:17 Protonix - PO 40 mg DAILY NAKIA Administration Ranolazine 500 mg 06/08/20 22:00 06/12/20 09:17 Ranexa - PO 500 mg BID NAKIA Administration ASSESSMENT/PLAN: 40 year old female with history of CAD, NSTEMIs, s/p 6 stents, s/p CABG x 3 vessel at [place] in 2019, Chronic Diastolic CHF, HTN, HLD, Gastritis, DM 2, CKD 3, Anxiety/Depression, Polysubstance Abuse (THC, Ecstasy), presenting with left leg ulcer and foot pain. #Chronic limb ischemia -bilateral feet that are cool to palpatation and 1+ distal pulses b/l -CTA Aorta with runoff -L distal popliteal artery occluded w/ collateral flow. trifucation vessels are disease w/ mostly the posterior tibial artery patent into the foot. heavy calcifications. correlate with conventional angiography -US Duplex LEs - moderate atherosclerotic disease with abnormal distal flow -Vascular consult: angio today with Dr. Vera -cardio consult: cleared for procedure -Heparin gtt- held for OR today -Vasculitis work-up ordered #L foot/leg ulcer infection -ABX: Clindamycin PO by ID; on probiotics as well -Podiatry consult- local wound care with Mupirocin and dry gauze; f/u outpt #Anxiety/Depression -reported suicidal ideation last night but denies it today -psych consult: patient does not need 1:1; valium 10 mg BID for anxiety; patient has capacity #DM -ISS w/ BGM -continue w/ Levemir #Normocytic Anemia -Iron deficiency noted on labs. -IV Venofer ordered -No evidence of bleeding -FOBT ordered; f/u results #CAD s/p CABG - c/w Metoprolol -c/w Statin -c/w Clopidogrel #Decreased TSH -TSH: 0.35 - free T4 was normal - Repeat TFTs in 3-4 weeks once acute illness resolves #Polysubstance Abuse -Utox positive for THC, Ecstasy, Amphetamines -denies drug use except for marijuana #FEN -1/2 NS @ 75 mls/hr -monitor lytes; replete PRN -NPO for OR today; diabetic/sodium diet after procedure #PPx -DVT: Heparin gtt will be held today until after procedure dispo: continue to monitor in tele Visit type - Emergency Visit Emergency Visit: No - New Patient This patient is new to me today: No - Critical Care Critical Care patient: No ATTENDING PHYSICIAN STATEMENT I saw and evaluated the patient. I reviewed the resident's note and discussed the case with the resident. I agree with the resident's findings and plan as documented. SUBJECTIVE: OBJECTIVE: ASSESSMENT AND PLAN:
--- NOTE | 2020-06-12 13:03 | PN ---
Teaching Attending Note Name of Resident: Duy Marie ATTENDING PHYSICIAN STATEMENT I saw and evaluated the patient. I reviewed the resident's note and discussed the case with the resident. I agree with the resident's findings and plan as documented. SUBJECTIVE: Reports some improvement in L foot swelling and pain. No fever/chills. OBJECTIVE: Afebrile, Hemodynamically Stable. Last Vital Signs Temp Pulse Resp BP Pulse Ox 97.8 F 70 18 135/84 98 06/12/20 10:36 06/12/20 10:36 06/12/20 10:36 06/12/20 10:36 06/12/20 10:36 Heart - S1, S2, RRR Lungs - clear to auscultation Abdomen - Soft, non-tender. Bowel Sounds normal. Extremities - Cool extremities, pulses not palpable. LLE ulcer medial aspect just proximal to ankle and L third digit ulcer with toe discoloration and discoloration on plantar aspect L foot. Neuro - AAO x 3. Tone/Power normal Laboratory Results - last 24 hr 06/09/20 06/11/20 06/11/20 13:43 16:32 20:57 WBC RBC Hgb Hct MCV MCH MCHC RDW Plt Count MPV Absolute Neuts (auto) Neutrophils % Lymphocytes % Monocytes % Eosinophils % Basophils % Nucleated RBC % PT with INR INR PTT (Actin FS) Sodium Potassium Chloride Carbon Dioxide Anion Gap BUN Creatinine Est GFR (CKD-EPI)AfAm Est GFR (CKD-EPI)NonAf POC Glucometer 195 161 Random Glucose Calcium Total Bilirubin AST ALT Alkaline Phosphatase Total Protein Albumin c-ANCA <1:20 Proteinase 3 (PR3) <3.5 p-ANCA <1:20 Atypical p-ANCA <1:20 Myeloperoxidase Ab <9.0 Blood Type Antibody Screen Crossmatch 06/12/20 06/12/20 06/12/20 05:30 05:30 05:30 WBC 6.5 RBC 3.33 L Hgb 9.6 L Hct 28.9 L MCV 86.8 MCH 28.7 MCHC 33.1 RDW 17.4 H Plt Count 324 MPV 7.7 Absolute Neuts (auto) 4.5 Neutrophils % 69.5 D Lymphocytes % 18.2 D Monocytes % 8.4 Eosinophils % 3.2 Basophils % 0.7 Nucleated RBC % 0 PT with INR 13.50 H INR 1.14 H PTT (Actin FS) 62.5 H Sodium 137 Potassium 3.9 Chloride 107 Carbon Dioxide 24 Anion Gap 6 L BUN 6.6 L Creatinine 0.8 Est GFR (CKD-EPI)AfAm 105.39 Est GFR (CKD-EPI)NonAf 90.93 POC Glucometer Random Glucose 194 H Calcium 8.7 Total Bilirubin 0.6 AST 11 L ALT 15 Alkaline Phosphatase 39 L Total Protein 6.0 L Albumin 2.9 L c-ANCA Proteinase 3 (PR3) p-ANCA Atypical p-ANCA Myeloperoxidase Ab Blood Type Antibody Screen Crossmatch 06/12/20 06/12/20 06/12/20 05:56 09:55 10:45 WBC RBC Hgb Hct MCV MCH MCHC RDW Plt Count MPV Absolute Neuts (auto) Neutrophils % Lymphocytes % Monocytes % Eosinophils % Basophils % Nucleated RBC % PT with INR INR PTT (Actin FS) Sodium Potassium Chloride Carbon Dioxide Anion Gap BUN Creatinine Est GFR (CKD-EPI)AfAm Est GFR (CKD-EPI)NonAf POC Glucometer 184 145 Random Glucose Calcium Total Bilirubin AST ALT Alkaline Phosphatase Total Protein Albumin c-ANCA Proteinase 3 (PR3) p-ANCA Atypical p-ANCA Myeloperoxidase Ab Blood Type O POSITIVE Antibody Screen Positive Crossmatch See Detail Current Medications Generic Name Dose Route Start Last Admin Trade Name Freq PRN Reason Stop Dose Admin Acetaminophen 650 mg 06/08/20 15:33 06/12/20 08:15 Tylenol - PO 650 mg Q4H PRN Administration PAIN LEVEL 4 - 6 Atorvastatin Calcium 80 mg 06/08/20 22:00 06/11/20 21:09 Lipitor - PO 80 mg HS NAKIA Administration Clindamycin HCl 300 mg 06/09/20 18:00 06/12/20 11:05 Cleocin - PO Not Given Q6HPO NAKIA Clopidogrel Bisulfate 75 mg 06/09/20 10:00 06/12/20 09:17 Plavix - PO 75 mg DAILY NAKIA Administration Diazepam 10 mg 06/10/20 22:00 06/12/20 09:17 Valium - PO 10 mg BID NAKIA Administration Gabapentin 800 mg 06/08/20 22:00 06/11/20 21:08 Neurontin - PO 800 mg HS ANKIA Administration Sodium Chloride 1,000 mls @ 75 mls/hr 06/12/20 11:00 06/12/20 10:56 1/2 Normal Saline IV 06/13/20 00:19 75 mls/hr ASDIR [facility] Administration Insulin Aspart 1 vial 06/08/20 16:30 06/12/20 10:53 Novolog Vial Sliding Scale - SQ Not Given TIDAC [facility] Protocol Insulin Detemir 5 units 06/08/20 22:00 06/12/20 06:01 Levemir Vial SQ Not Given BID@0700,2200 [facility] Lactobacillus Acidophilus 1 tab 06/11/20 15:15 06/12/20 13:01 Bacid - PO Not Given TID [facility] Metoprolol Tartrate 25 mg 06/08/20 22:00 06/12/20 09:17 Lopressor - PO 25 mg BID NAKIA Administration Oxycodone HCl 5 mg 06/09/20 09:19 06/12/20 08:16 Roxicodone - PO 5 mg Q6H PRN Administration PAIN LEVEL 6-10 Pantoprazole Sodium 40 mg 06/09/20 10:00 06/12/20 09:17 Protonix - PO 40 mg DAILY NAKIA Administration Ranolazine 500 mg 06/08/20 22:00 06/12/20 09:17 Ranexa - PO 500 mg BID NAKIA Administration Home Medications Medication Instructions Recorded Aspirin [Aspirin EC] 81 mg PO DAILY 11/13/15 Gabapentin 800 mg PO QID 05/06/18 Pantoprazole Sodium [Protonix] 40 mg PO DAILY 05/06/18 Quetiapine Fumarate [Seroquel -] 25 mg PO HS 05/06/18 Atorvastatin Ca [Lipitor] 80 mg PO HS tablet 11/07/18 Clopidogrel Bisulfate [Plavix -] 75 mg PO DAILY tablet 11/07/18 metFORMIN HCL [Metformin ER 1,000 mg PO BID 03/01/19 Gastric] Metoprolol Tartrate 25 mg PO BID 10/01/19 Ranolazine [Ranexa -] 500 mg PO BID #60 tab 10/02/19 ASSESSMENT AND PLAN: 40 year old female with history of CAD s/p NSTEMIs (s/p 6 stents, CABG x 3 vessel at [place] 11/06), Chronic Diastolic CHF, HTN, HLD, Gastritis, DM 2, CKD 3, Anxiety/Depression, Polysubstance Abuse (THC, Ecstasy, Amphetamines, MJ), presents with left leg ulcer and foot pain. 1. L 3rd toe/leg ulcer infection Initially placed on Meropenem/Vanco - transitioned to Clindamycin PO by ID. Probiotics added. Afebrile, Hemodynamically Stable. Seen by Podiatry - recommend local wound care with Mupirocin and dry gauze, with Wound Care clinic follow-up as out-patient. 2. Chronic Limb Ischemia - bilateral feet cool without palpable pulses. US Duplex LEs - moderate atherosclerotic disease with abnormal distal flow CTA Aorta with runoff - distal popliteal occlusion with collaterals. Vascular Surgery consulted - Angiogram scheduled 06/12 Heparin drip held this AM pending Vascular Surgery intervention/Angiogram. Vasculitis work-up ordered, ANGEL negative. ANCAs pending. Risk stratification as per Cardiology. Medically optimized. 3. DM 2 - Uncontrolled, A1C 7.8. Metformin held. Maintain on Levemir, Novolog sliding scale. 4. CAD s/p CABG - normally on Aspirin/Plavix/Metoprolol/Statin 5. Anxiety/Depression - previously on Quetiapine Reported Suicidal Ideation - denied by patient. Evaluated by Toni - cleared medically, has capacity - started on Valium for Anxiety. Home Seroquel stopped by Psychiatry. 6. Low TSH 0.35 - free T4 wnl. Repeat TFTs in 3-4 weeks once acute illness resolves. 7. Normocytic Anemia - Iron deficiency on labs. s/p IV Venofer. No evidence of overt bleeding. FOBT requested. 8. Polysubstance Abuse (Utox positive for THC, Ecstasy, Amphetamines, MJ) - denies drug use except for MJ. 9. HTN - continue Metoprolol. DVT Px - on Heparin gtt
[2020-06-12] MEDS ORDERED: PT OWN MED DRAWER 7, Y5N ONE ×3 (13:34→23:28)
[2020-06-12] MEDS ORDERED: HEPARIN NA (PORCINE) 5,000 UNITS/ML 1ML VIAL ONE (16:04)
[2020-06-12] MEDS ORDERED: LIDOCAINE HCL 1%, 10 MG/ML (20ML VIAL) ONE (16:04)
[2020-06-12] MEDS ORDERED: CLINDAMYCIN 600 MG PREMIX BAG IVPB ONE (18:15)
--- NOTE | 2020-06-12 19:07 | PN ---
Progress Note (short form) - Note Progress Note: Vascular Surgery S/P left lower extremity angiogram. 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 Pt has two vessel runoff into the foot. No need for any intervention as risks out weigh the benefits. Pt can be DC home in am. Pt can follow in clinic in one week -- [phone] Elgin Vera DO
--- NOTE | 2020-06-12 19:08 | OP ---
Operative Note - Note: Operative Date: 06/12/20 Pre-Operative Diagnosis: Left foot pain Operation: aortogram, LLE angiogram Findings: distal popliteal occlcusion with abundant collaterals. Pt has two vessel runoff into foot Post-Operative Diagnosis: Same as Pre-op Surgeon: Elgin Vera Anesthesia: MAC Estimated Blood Loss (mls): 20 Operative Report Dictated: Yes
[2020-06-12] MEDS ORDERED: ATORVASTATIN CA 80 MG TABLET (FP) PO SCH (22:00)
[2020-06-12] MEDS ORDERED: GABAPENTIN 400 MG CAPSULE PO SCH (22:00)
[2020-06-13] MEDS: CLINDAMYCIN HCL 150 MG CAPSULE (FP) PO SCH ×3 (01:05→11:32)
[2020-06-13] MEDS ORDERED: PT OWN MED DRAWER 7, Y5N ONE ×2 (05:42→11:31)
[2020-06-13] MEDS: INSULIN (LEVEMIR) 100 UNITS/ML UNITS SQ SCH (06:04)
[2020-06-13] MEDS: LACTOBACILLUS ACIDOPHILUS 1 TABLET PO SCH (06:05)
[2020-06-13] MEDS: INSULIN SLIDING SCALE (NOVOLOG) 1 VIAL SQ SCH ×2 (06:06→11:22)
--- NOTE | 2020-06-13 06:33 | PN ---
Progress Note, Physician Chief Complaint: S/P left lower extremity angiogram. 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 Pt has two vessel runoff into the foot. No need for any intervention as risks out weigh the benefits. Denies CP/SOB/palps - Current Medication List Current Medications: Active Medications Acetaminophen (Tylenol -) 650 mg PO Q4H PRN PRN Reason: PAIN LEVEL 4 - 6 Last Admin: 06/12/20 21:21 Dose: 650 mg Documented by: Atorvastatin Calcium (Lipitor -) 80 mg PO HS [facility] Last Admin: 06/12/20 21:19 Dose: 80 mg Documented by: Clindamycin HCl (Cleocin -) 300 mg PO Q6HPO [facility] Last Admin: 06/13/20 06:05 Dose: 300 mg Documented by: Clopidogrel Bisulfate (Plavix -) 75 mg PO DAILY [facility] Diazepam (Valium -) 10 mg PO BID [facility] Last Admin: 06/12/20 21:19 Dose: 10 mg Documented by: Fentanyl (Sublimaze Injection -) 50 mcg IVPUSH [id number] PRN PRN Reason: PAIN-PACU ORDER X 4 DOSES ONLY Last Admin: 06/12/20 19:30 Dose: 50 mcg Documented by: Gabapentin (Neurontin -) 800 mg PO [facility] Last Admin: 06/12/20 21:18 Dose: 800 mg Documented by: Insulin Aspart (Novolog Vial Sliding Scale -) 1 vial SQ TIDAC [facility]; Protocol Last Admin: 06/13/20 06:06 Dose: 4 units Documented by: Insulin Detemir (Levemir Vial) 5 units SQ BID@0700,2200 [facility] Last Admin: 06/13/20 06:04 Dose: 5 units Documented by: Lactobacillus Acidophilus (Bacid -) 1 tab PO TID [facility] Last Admin: 06/13/20 06:05 Dose: 1 tab Documented by: Metoprolol Tartrate (Lopressor -) 25 mg PO BID [facility] Last Admin: 06/12/20 21:19 Dose: 25 mg Documented by: Oxycodone HCl (Roxicodone -) 5 mg PO Q6H PRN PRN Reason: PAIN LEVEL 6-10 Last Admin: 06/12/20 23:26 Dose: 5 mg Documented by: Pantoprazole Sodium (Protonix -) 40 mg PO DAILY [facility] Ranolazine (Ranexa -) 500 mg PO BID NAKIA Last Admin: 06/12/20 21:20 Dose: 500 mg Documented by: - Objective Vital Signs: Vital Signs Temperature 98 F 06/13/20 06:00 Pulse Rate 84 06/13/20 06:00 Respiratory Rate 20 06/13/20 06:00 Blood Pressure 111/75 06/13/20 06:00 O2 Sat by Pulse Oximetry (%) 98 06/13/20 06:00 Constitutional: Yes: No Distress, Calm Eyes: Yes: Conjunctiva Clear Cardiovascular: Yes: Regular Rate and Rhythm Respiratory: Yes: CTA Bilaterally Gastrointestinal: Yes: Soft (nt) Edema: No Neurological: Yes: Alert, Oriented ...Motor Strength: WNL Labs: CBC, BMP 06/12/20 05:30 06/12/20 05:30 INR, PTT INR 1.14 (0.83-1.09) H 06/12/20 05:30 Assessment/Plan Assessment/Plan 40F hx CAD, s/p NSTEMIs, multiple PCI, CABG here with foot pain. cad: -stable no signs acs -no anginal sxs -recent echo with nl lvef -cont bb, ranexa, atorva -Discussed with Dr. Vera. Patient was maintained on Effient for her chronic CAD and h/o of recurrent MIS and stent restenoses as per interventional cards -Will d/c Plavix and resume Effient htn: -cont bb hld: -stable, cont statin pad, le ulcer: -as per vascular
[2020-06-13 07:31] LABS: BLOOD UREA NITROGEN 6.9 mg/dL (7-18); CALCIUM 8.8 mg/dL (8.5-10.1); CREATININE 0.9 mg/dL (0.55-1.3); POTASSIUM 3.9 mmol/L (3.5-5.1)
[2020-06-13 07:56] LABS: BASO % 0.7 % (0-2.0); EOS % 3.3 % (0-4.5); HEMATOCRIT 28.7 % (32.4-45.2); HEMOGLOBIN 9.5 GM/dL (10.7-15.3); LYMPH % 18.4 % (8-40); MCH 28.6 pg (25.7-33.7); MEAN CELL VOLUME 86.6 fl (80-96); MEAN PLT VOLUME 8.1 fl (7.5-11.1); MONO % 10.5 % (3.8-10.2); NEUT % 67.1 % (42.8-82.8); PLATELET COUNT 280 K/MM3 (134-434); RBC 3.31 M/mm3 (3.60-5.2); RDW 17.4 % (11.6-15.6); WHITE BLOOD COUNT 6.1 K/mm3 (4.0-10.0)
[2020-06-13] MEDS: oxyCODONE HCL 5 MG TABLET PO PRN (08:20)
[2020-06-13] MEDS: ACETAMINOPHEN 325 MG TABLET (FP) PO PRN (08:20)
[2020-06-13] MEDS: RANOLAZINE E.R. 500 MG TABLET (FP) PO SCH (09:17)
[2020-06-13] MEDS: diazePAM 5 MG TABLET PO SCH (09:17)
[2020-06-13] MEDS: METOPROLOL TARTRATE 25 MG TABLET (FP) PO SCH (09:18)
[2020-06-13 09:52] VITALS: BP 144/83; PULSE 80; TEMP 98.7
[2020-06-13] MEDS ORDERED: CLOPIDOGREL BISULFATE 75 MG TABLET (FP) PO SCH (10:00)
[2020-06-13] MEDS ORDERED: PANTOPRAZOLE 40 MG TABLET PO SCH (10:00)
[2020-06-13] MEDS ORDERED: PRASUGREL HCL 10 MG TAB PO SCH (10:00)
[2020-06-13] MEDS ORDERED: ASPIRIN 81 MG CHEWABLE TABLETS PO SCH (10:00)
--- NOTE | 2020-06-13 12:48 | DS ---
Physical Exam: SUBJECTIVE: Patient seen and examined at bedside. No acute events reported overnight. OBJECTIVE: Vital Signs Period Temp Pulse Resp BP Sys/Hand Pulse Ox Last 24 Hr 97.4 F-98.7 F 62-84 16-20 108-144/48-83 97-100 PHYSICAL EXAM GENERAL: AAOx3, in no acute distress. multiple tattoos b/l arms. poor dentataion HEENT: NCAT, PERRLA, EOMI, sclera anicteric, conjunctiva clear, oropharynx clear w/o exudates. MMM. NECK: Normal ROM, supple, no lymphadenopathy, JVD, or masses LUNGS: CTABL no wheezes/ rhonchi/ rales. No distress, speaks in full sentences. No increased work of breathing. HEART: RRR, normal S1 S2, no M/R/G ABDOMEN: Soft, NTND, + BS. No guarding or rebound. No hepatomegaly or splenomegaly. MSK: ROM WNL EXTREMITIES: b/l feet are cooler to palpation compared to rest of body. decreased pedal pulses bilaterally. NEUROLOGICAL: CN II-XII intact. Normal speech, normal gait, no focal sensorimotor deficits. SKIN: duskiness on sole of both feet L more than left. round ulcer with yellow scarring on medial left leg 2-3 in above the ankle LABS Laboratory Results - last 24 hr CBC, BMP 06/13/20 05:40 06/13/20 05:40 06/12/20 06/13/20 06/13/20 09:55 05:21 05:40 WBC RBC Hgb Hct MCV MCH MCHC RDW Plt Count MPV Absolute Neuts (auto) Neutrophils % Lymphocytes % Monocytes % Eosinophils % Basophils % Nucleated RBC % PTT (Actin FS) 30.5 Sodium Potassium Chloride Carbon Dioxide Anion Gap BUN Creatinine Est GFR (CKD-EPI)AfAm Est GFR (CKD-EPI)NonAf POC Glucometer 219 Random Glucose Calcium Blood Type O POSITIVE Antibody Screen Positive Antibody Identification Anti-k Antigen Identification No Result Required. Crossmatch See Detail 06/13/20 06/13/20 06/13/20 05:40 05:40 11:19 WBC 6.1 RBC 3.31 L Hgb 9.5 L Hct 28.7 L MCV 86.6 MCH 28.6 MCHC 33.0 RDW 17.4 H Plt Count 280 MPV 8.1 Absolute Neuts (auto) 4.1 Neutrophils % 67.1 Lymphocytes % 18.4 Monocytes % 10.5 H Eosinophils % 3.3 Basophils % 0.7 Nucleated RBC % 0 PTT (Actin FS) Sodium 137 Potassium 3.9 Chloride 107 Carbon Dioxide 25 Anion Gap 5 L BUN 6.9 L Creatinine 0.9 Est GFR (CKD-EPI)AfAm 91.40 Est GFR (CKD-EPI)NonAf 78.86 POC Glucometer 75 Random Glucose 202 H Calcium 8.8 Blood Type Antibody Screen Antibody Identification Antigen Identification Crossmatch HOSPITAL COURSE: 40 year old female with history of CAD, NSTEMIs, s/p 6 stents, s/p CABG x 3 vessel at [place] in 2019, Chronic Diastolic CHF, HTN, HLD, Gastritis, DM 2, CKD 3, Anxiety/Depression, Polysubstance Abuse (THC, Ecstasy), presented with left leg ulcer and foot pain. Patient had cool feet bilaterally compared to the rest of her body at presentation. She also had 1+ distal pulses b/l. Patient had a series of imaging done at admission which included at CTA aorta with runoff which showed an occluded L distal popliteal artery with collateral flow. Dr. Vera, Vascular Surgeon, was consulted to evaluate the patient. He felt that the L leg ischemia was most likely chronic since the patient had good collateral flow. Patient was taken to the OR for an angio and afterwards Dr. Vera did not feel that the risks outweighed the benefits since there was sufficient collateral circulation present. Patient was put on clindamycin as per ID for the L foot ulcer but was not continued upon discharge. Patient also reported suicidal ideations to the nurse on her first day and was briefly placed on a 1:1 but was removed after psychiatry saw the patient and said she was not a threat to herself. Patient was maintained on a sliding scale for her DM during her stay and she also received IV Venofer for her anemia. Patient was discharged with discontinuation of clopidogrel and starting Prasrugel as per cardio recommendations with outpatient followup with psychiatry, cardio, and vascular. A post op hard shoe was ordered at the request of the patient. Date of Admission:06/08/20 06/08/2038-BFN-Lqfux bradycardia; possible L atrial enlargement; low voltage QRS; T wave abnormality, consider Lateral ischemia 06/08/20-CXR- 2 views of the chest reveal clear well-aerated lungs, sternal sutures some of which are broken, mediastinal clips, normal heart, normal aorta and normal saman. The lungs are clear. The angles are sharp. The bones and soft tissues are intact. Since 10/01/2020 one of the broken wires from the sternal sutures has migrated towards the right clavicular head. 06/08/20-L foot XRay-3 views of the left foot have been submitted. There is no sign of fracture or subluxation and no sign of blastic changes. There is a deformity of the tuft of the great toe of unclear etiology. Swelling, foreign body or soft tissue air is not seen. There are vascular calcifications. If one is concerned about osteomyelitis, three-phase bone scan or MR may be of help. 06/08/20-L leg Duplex US- IMPRESSION: No evidence of deep venous thrombosis. 06/08/20-US Arterial L leg-Moderate atherosclerotic disease with abnormal distal flow for which additional imaging studies are now recommended. Please see above discussion. 06/08/20-CTA Aorta Runoff-PATENCY OF THE RUNOFF TO THE POPLITEAL ARTERY. ON THE RIGHT, THE POPLITEAL ARTERY IS CONTINUOUS INTO THE TRIFURCATION IS DISCUSSED ABOVE. ON THE LEFT SIDE, THE DISTAL POPLITEAL ARTERY OCCLUDES WITH COLLATERAL FLOW DISCUSSED ABOVE. TRIFURCATION VESSELS ARE DISEASE WITH MOSTLY THE POSTERIOR TIBIAL ARTERY PATENT INTO THE FOOT. THERE IS HEAVY CALCIFICATIONS, CORRELATE WITH CONVENTIONAL ANGIOGRAPHY. SEE ABOVE COMMENTS. COLLECTION POSTERIOR IN THE RECTUS MUSCLE ON THE RIGHT SIDE DESCRIBED ABOVE. THERE IS SOME STRANDING OF THE SUBCUTANEOUS FAT, UNDERLYING INFECTION TO BE EXCLUDED IF CLINICALLY INDICATED BY PERCUTANEOUS ASPIRATION. BILOBED COLLECTION ON THE MEDIAL ASPECT OF THE LEFT THIGH WITH NO STRANDING OF THE SURROUNDING FAT, CORRELATE WITH HISTORY. Mild constipation. Occlusion of the MARYSE which appears present on prior imaging. Date of Discharge: 06/13/20 Minutes to complete discharge: 36 Discharge Summary Problems reviewed: Yes Reason For Visit: CHF,CKD,DIABETES MELLITUS,PERIPHERAL ARTERIAL DISE Current Active Problems Anxiety (Acute) CAD (coronary artery disease) (Acute) Diabetes (Acute) Foot osteomyelitis, right (Acute) S/P coronary artery stent placement (Acute) Condition: Stable - Instructions Diet, Activity, Other Instructions: Your visit: You were admitted to the hospital for foot pain and a nonhealing ulcer. You were found to have decreased blood supply to your foot that was making the ulcer heal slowly. You were treated with antibiotics with improvement of your symptoms. We also did surgery to see if we could improve the blood supply to your foot but we found that it was sufficient enough. Medications changes: -We started you on a new medication. Please start taking the blood thinner PRASUGREL 10 MG ONCE A DAY. -Please STOP taking Plavix. We discontinued this medication for you. -Continue to take all other home medications as prescribed. Follow up: -Please follow-up with your vascular surgeon, Dr. Vera in 1 week. -Please follow-up with your psychiatrist, Dr. Muñoz, in 1 week -Please follow-up with your licensed sales producer, Dr. Ng in 1 week. -Please follow-up with your infectious disease doctor, Dr. Mena, in 2 weeks. - Visit with your Primary Care Provider, Dr. Valencia in 2 weeks. Additional Instructions: -You are being discharged to your home. -Please return to the Emergency Department if you experience worsening pain, fevers, chills, shortness of breath, or chest pain, or if you experience any worsening, new or concerning symptoms. Referrals: Esther Mena MD [Staff Physician] - 2 Weeks Daniel Muñoz MD [Staff Physician] - 1 Week Juan Manuel Ng MD [Staff Physician] - 1 Week Ashleigh Valencia MD [Primary Care Provider] - 1 Week Elgin Vera DO [Staff Physician] - 1 Week Disposition: HOME - Home Medications Comprehensive Discharge Medication List: Ambulatory Orders Aspirin [Aspirin EC] 81 mg PO DAILY 11/13/15 Gabapentin 800 mg PO QID 05/06/18 Pantoprazole Sodium [Protonix] 40 mg PO DAILY 05/06/18 Quetiapine Fumarate [Seroquel -] 25 mg PO HS 05/06/18 Atorvastatin Ca [Lipitor] 80 mg PO HS tablet 11/07/18 metFORMIN HCL [Metformin ER Gastric] 1,000 mg PO BID 03/01/19 Metoprolol Tartrate 25 mg PO BID 10/01/19 Ranolazine [Ranexa -] 500 mg PO BID #60 tab 10/02/19 Prasugrel Hydrochloride [Effient -] 10 mg PO DAILY 30 Days #30 tab 06/13/20 This patient is new to me today: No Emergency Visit: No Critical Care patient: No - Discharge Referral Referred to [facility] Med [facility].C[facility] No ATTENDING PHYSICIAN STATEMENT I saw and evaluated the patient. I reviewed the resident's note and discussed the case with the resident. I agree with the resident's findings and plan as documented. SUBJECTIVE: OBJECTIVE: ASSESSMENT AND PLAN:
--- NOTE | 2020-06-13 16:13 | PN ---
Teaching Attending Note Name of Resident: Duy Marie ATTENDING PHYSICIAN STATEMENT I saw and evaluated the patient. I reviewed the resident's note and discussed the case with the resident. I agree with the resident's findings and plan as documented. SUBJECTIVE: Reports ongoing improvement in L foot swelling and pain but still unable to fit foot in her shoes comfortably. No fever/chills. OBJECTIVE: Afebrile, Hemodynamically Stable. Last Vital Signs Temp Pulse Resp BP Pulse Ox 98.7 F 80 18 144/83 100 06/13/20 09:51 06/13/20 09:51 06/13/20 09:51 06/13/20 09:51 06/13/20 09:51 Heart - S1, S2, RRR Lungs - clear to auscultation Abdomen - Soft, non-tender. Bowel Sounds normal. Extremities - Cool extremities, pulses not palpable. LLE ulcer medial aspect just proximal to ankle and L third digit ulcer with toe discoloration and discoloration on plantar aspect L foot. Neuro - AAO x 3. Tone/Power normal Laboratory Results - last 24 hr 06/13/20 06/13/20 06/13/20 05:21 05:40 05:40 WBC 6.1 RBC 3.31 L Hgb 9.5 L Hct 28.7 L MCV 86.6 MCH 28.6 MCHC 33.0 RDW 17.4 H Plt Count 280 MPV 8.1 Absolute Neuts (auto) 4.1 Neutrophils % 67.1 Lymphocytes % 18.4 Monocytes % 10.5 H Eosinophils % 3.3 Basophils % 0.7 Nucleated RBC % 0 PTT (Actin FS) 30.5 Sodium Potassium Chloride Carbon Dioxide Anion Gap BUN Creatinine Est GFR (CKD-EPI)AfAm Est GFR (CKD-EPI)NonAf POC Glucometer 219 Random Glucose Calcium 06/13/20 06/13/20 05:40 11:19 WBC RBC Hgb Hct MCV MCH MCHC RDW Plt Count MPV Absolute Neuts (auto) Neutrophils % Lymphocytes % Monocytes % Eosinophils % Basophils % Nucleated RBC % PTT (Actin FS) Sodium 137 Potassium 3.9 Chloride 107 Carbon Dioxide 25 Anion Gap 5 L BUN 6.9 L Creatinine 0.9 Est GFR (CKD-EPI)AfAm 91.40 Est GFR (CKD-EPI)NonAf 78.86 POC Glucometer 75 Random Glucose 202 H Calcium 8.8 Discharge Medications Medication Instructions Recorded Aspirin [Aspirin EC] 81 mg PO DAILY 11/13/15 Gabapentin 800 mg PO QID 05/06/18 Pantoprazole Sodium [Protonix] 40 mg PO DAILY 05/06/18 Quetiapine Fumarate [Seroquel -] 25 mg PO HS 05/06/18 Atorvastatin Ca [Lipitor] 80 mg PO HS tablet 11/07/18 metFORMIN HCL [Metformin ER 1,000 mg PO BID 03/01/19 Gastric] Metoprolol Tartrate 25 mg PO BID 10/01/19 Ranolazine [Ranexa -] 500 mg PO BID #60 tab 10/02/19 Prasugrel Hydrochloride [Effient -] 10 mg PO DAILY 30 Days #30 tab 06/13/20 ASSESSMENT AND PLAN: 40 year old female with history of CAD s/p NSTEMIs (s/p 6 stents, CABG x 3 vessel at [place] 11/06), Chronic Diastolic CHF, HTN, HLD, Gastritis, DM 2, CKD 3, Anxiety/Depression, Polysubstance Abuse (THC, Ecstasy, Amphetamines, MJ), presents with left leg ulcer and foot pain. 1. L 3rd toe/leg ulcer Initially placed on Meropenem/Vanco - transitioned to Clindamycin PO by ID to cover infection empirically. Afebrile, Hemodynamically Stable. Seen by Podiatry - recommend local wound care with Mupirocin and dry gauze, with Wound Care clinic follow-up as out-patient. Team discussed with Dr. Mena 06/12, who recommended no need for further antibiotic therapy. 2. Chronic Limb Ischemia - bilateral feet cool without palpable pulses. US Duplex LEs - moderate atherosclerotic disease with abnormal distal flow CTA Aorta with runoff - distal popliteal occlusion with collaterals. Vascular Surgery consulted - Angiogram 06/12 showed distal popliteal occlusion with abundant collaterals No need for further intervention as per vascular. Continue Aspirin. Plavix transitioned to Effient as per Cardio. 3. DM 2 - Uncontrolled, A1C 7.8. Metformin to resume on discharge. PCP follow up. 4. CAD s/p CABG - normally on Aspirin/Plavix/Metoprolol/Statin - plavix changed to Effient by Cardio. 5. Anxiety/Depression - previously on Quetiapine Reported Suicidal Ideation - denied by patient. Will resume Seroquel on discharge. 6. Low TSH 0.35 - free T4 wnl. Repeat TFTs in 3-4 weeks once acute illness resolves. 7. Iron Deficiency Anemia - s/p IV Venofer. No evidence of overt bleeding. Will supplement Iron on discharge. PCP to monitor CBC and refer to [facility] and GI as out- patient for work-up of AARON. 8. Polysubstance Abuse (Utox positive for THC, Ecstasy, Amphetamines, MJ) - denies drug use except for MJ. 9. HTN - continue Metoprolol. Medically Stable for discharge.
--- NOTE | 2020-06-14 07:03 | PN ---
Progress Note (short form) - Note Progress Note: Anesthesia Post Op Note Pt s/p sedation for angiogram Pt d/c prior to visit as per chart pt w/o complaints VSS no apparent anesthesia complications Christian STORM
--- NOTE | 2020-06-24 09:55 | OP ---
DATE OF OPERATION: 06/12/2020 PREOPERATIVE DIAGNOSIS: Left foot pain with ulcers above the ankle and in the toes. OPERATION: Aortogram, left lower extremity angiogram. 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 Patient has 2-vessel runoff into the foot. SURGEON: Elgin Cooley DO ANESTHESIA: Fractional. BLOOD LOSS: 20 mL INDICATION: Patient is a 40-year-old female that comes in with left leg pain. She has a nonhealing ulcer above her left ankle and she has an ulcer between the 3rd and 4th toes. She is a bigtime smoker for 20 years. She also does many drugs such as marijuana and ecstasy and is a very noncompliant diabetic. Patient was admitted to the hospital. Patient was found to be COVID-19 negative. Patient has an extensive cardiac history and has had CABG already. Patient was cleared by Cardiology for angiogram. DESCRIPTION OF PROCEDURE: Patient was brought to the operating room, laid on the operating table in the supine manner and the area of the right and left groin was prepped and draped in a sterile surgical manner. We then went ahead and injected 10 mL of lidocaine 1% over the right common femoral artery. We then took a micropuncture needle, punctured the right common femoral artery. Micropuncture wire was inserted and a micropuncture sheath was inserted and then a traditional 5-Cypriot sheath was inserted. We then placed a 0.035 floppy guidewire into the aorta followed by Omni Flush catheter. We then shot an aortogram by hand injection showing that the aorta and the iliac arteries were without any disease. We then went ahead and used our 0.035 floppy guidewire and went up and over to the left common femoral artery and the Omni Flush catheter followed. We then shot an angiogram of the left lower extremity showing that the common femoral artery, the profunda and the SFA were patent. The popliteal artery was patent, but the distal popliteal artery was occluded. Patient has abundant collaterals which are then going down into the calf and patient has 2-vessel runoff in the form of AT and PT going into the foot. At this point the distal popliteal artery is occluded and no angioplasty could be performed. Therefore, in the future if the patient does not get better, patient might need bypass surgery or might need a retrograde angiogram from the tibial arteries. At this point we brought our Omni Flush catheter up and over and our sheath was removed. Pressure was held over the right groin for 5 minutes. After there was no more bleeding, area was wet and dried and Dermabond was placed. Patient tolerated the procedure with no complications. Patient transferred to PACU in stable condition. ELGIN COOLEY DO [id number]
== END 2020-06-13 13:28 | disposition home or self-care (01) | DRG 300 ==
LOC: JER 11:14 → JERBED 13:17 → J4W 13:18
PROC: B41GZZZ Fluoroscopy of Left Lower Extremity Arteries (ICD-10-PCS; 2020-06-12)
PROC: B41DZZZ Fluoroscopy of Aorta and Bilateral Lower Extremity Arteries (ICD-10-PCS; principal; 2020-06-12 17:00)
DX: E11.51 Type 2 diabetes mellitus with diabetic peripheral angiopathy without gangrene (principal); R45.851 Suicidal ideations; L97.528 Non-pressure chronic ulcer of other part of left foot with other specified severity; I13.0 Hypertensive heart and chronic kidney disease with heart failure and stage 1 through stage 4 chronic kidney disease, or unspecified chronic kidney disease; I50.32 Chronic diastolic (congestive) heart failure; I10 Essential (primary) hypertension; E78.5 Hyperlipidemia, unspecified; I25.10 Atherosclerotic heart disease of native coronary artery without angina pectoris; N18.3 Chronic kidney disease, stage 3 (moderate); E11.43 Type 2 diabetes mellitus with diabetic autonomic (poly)neuropathy; K31.84 Gastroparesis; F41.9 Anxiety disorder, unspecified; E11.40 Type 2 diabetes mellitus with diabetic neuropathy, unspecified; E11.59 Type 2 diabetes mellitus with other circulatory complications; D64.9 Anemia, unspecified; F17.210 Nicotine dependence, cigarettes, uncomplicated; E11.65 Type 2 diabetes mellitus with hyperglycemia; E11.621 Type 2 diabetes mellitus with foot ulcer; D50.9 Iron deficiency anemia, unspecified; I77.1 Stricture of artery; F41.0 Panic disorder [episodic paroxysmal anxiety]; E11.22 Type 2 diabetes mellitus with diabetic chronic kidney disease; Z95.1 Presence of aortocoronary bypass graft; Z85.41 Personal history of malignant neoplasm of cervix uteri; I25.2 Old myocardial infarction; Z95.5 Presence of coronary angioplasty implant and graft
CPT/HCPCS: 36415; 71046-TC-FY; 73630-TC-LT; 75635-TC; 76000-TC-FY; 80048; 80053; 80061; 80307; 81003; 82550; 82607; 82728; 82746; 82962; 83036; 83520; 83540; 83550; 83605; 83721; 84439; 84443; 85025; 85610; 85730; 86038; 86256; 86850; 86870; 86900; 86901; 86902; 86922; 87040; 93005; 93010; 93926-TC; 93971-TC; 94760; 97116-GP; 97161-GP; 99285-25; J0131; J1644; U0003

== ENCOUNTER 2022-07-25 10:14 | Emergency (ER) | payer OTHER ==
[2022-07-25 10:34] VITALS: BP 197/107; PULSE 111; RESP 18; TEMP 98.2; BMI 27.3
[2022-07-25] MEDS ORDERED: ACETAMINOPHEN 1000 MG/100 ML BAG IVPB ONE (11:46)
[2022-07-25] MEDS ORDERED: LACTATED RINGERS SOLUTION 1000 ML INFUS.BAG IV ONE (11:46)
[2022-07-25] MEDS ORDERED: ONDANSETRON 4 MG/2 ML VIAL IVPUSH ONE (11:49)
[2022-07-25] MEDS ORDERED: PIPERACILLIN/TAZOB 4.5 GM 4.5 GM in DEXTROSE 5%-WATER 100 ML IVPB ONE (11:58)
[2022-07-25] MEDS ORDERED: ACETAMINOPHEN INJECTION 100 ML IVPB ONE (13:08)
[2022-07-25] MEDS ORDERED: PIPERACILLIN/TAZOB 4.5 GM 4.5 GM/100 ML BAG IVPB ONE (13:16)
[2022-07-25] MEDS ORDERED: ONDANSETRON 4 MG/2 ML VIAL ONE (13:16)
[2022-07-25 13:23] LABS: BASO % 0.5 % (0-2.0); EOS % 0.6 % (0-4.5); HEMATOCRIT 32.5 % (32.4-45.2); HEMOGLOBIN 10.6 GM/dL (10.7-15.3); LYMPH % 16.9 % (8-40); MCHC 32.5 g/dl (32.0-36.0); MEAN CELL VOLUME 82.9 fl (80-96); MEAN PLT VOLUME 7.9 fl (7.5-11.1); MONO % 6.4 % (3.8-10.2); NEUT % 75.6 % (42.8-82.8); PLATELET COUNT 442 10^3/uL (134-434); RBC 3.92 M/mm3 (3.60-5.2); RDW 19.7 % (11.6-15.6)
[2022-07-25 13:41] LABS: LACTIC ACID 2.1 mmol/L (0.4-2.0)
[2022-07-25 13:43] LABS: CHLORIDE 108 mmol/L (98-107); SODIUM 138 mmol/L (136-145)
[2022-07-25 13:45] LABS: CALCIUM 9.7 mg/dL (8.5-10.1)
[2022-07-25 13:46] LABS: ALBUMIN 4.3 g/dl (3.4-5.0); ANION GAP 10 MMOL/L (8-16); BLOOD UREA NITROGEN 8.1 mg/dL (7-18); CO2 21 mmol/L (21-32); GLUCOSE,RANDOM 203 mg/dL (74-106)
[2022-07-25 13:49] LABS: CREATININE 1.3 mg/dL (0.55-1.3); SGOT/AST 12 U/L (15-37); SGPT/ALT 16 U/L (13-61)
[2022-07-25 13:51] LABS: ALK PHOS 56 U/L (45-117); BILIRUBIN,TOTAL 0.2 mg/dL (0.2-1); TOT PROT 8.4 g/dl (6.4-8.2)
[2022-07-25 14:00] LABS: ERYTHROCYTE SEDIMENTATION RATE 34 mm/hr (0-20)
== END 2022-07-25 14:51 | disposition left against medical advice (07) ==
LOC: JER 10:14
PROC: 3E033GC Introduction of Other Therapeutic Substance into Peripheral Vein, Percutaneous Approach (ICD-10-PCS; principal; 2022-07-25)
DX: L03.115 Cellulitis of right lower limb (principal); I73.9 Peripheral vascular disease, unspecified; E11.9 Type 2 diabetes mellitus without complications
CPT/HCPCS: 36415; 80053; 83605; 84484; 85025; 85651; 86140; 87040; 99284-25

== ENCOUNTER 2022-08-09 10:44 | Inpatient (IN) | payer MEDICARE, OTHER ==
[2022-08-09] MEDS ORDERED: ACETAMINOPHEN 1000 MG/100 ML BAG IVPB ONE (11:15)
[2022-08-09] MEDS ORDERED: VANCOMYCIN 1 GM in D5W (PRE-DOCKED) 1,000 MG/250 ML IVPB ONE (11:15)
[2022-08-09] MEDS ORDERED: PIPERACILLIN/TAZOB 4.5 GM 4.5 GM in DEXTROSE 5%-WATER 100 ML IVPB ONE (11:15)
[2022-08-09] MEDS ORDERED: VANCOMYCIN 1,000 MG VIAL (RESTRICTED TO ID ONLY) ONE (12:26)
[2022-08-09] MEDS ORDERED: ACETAMINOPHEN INJECTION 100 ML IVPB ONE (12:26)
[2022-08-09] MEDS ORDERED: PIPERACILLIN/TAZOBACTAM 4.5 GM VIAL IVPB ONE (12:26)
[2022-08-09 12:29] LABS: HEMATOCRIT 30.7 % (32.4-45.2); HEMOGLOBIN 10.4 G/dL (10.7-15.3); MCHC 33.7 g/dl (32.0-36.0); MEAN CELL VOLUME 83.3 fl (80-96); MEAN PLT VOLUME 8.4 fl (7.5-11.1); PLATELET COUNT 390.6 10^3/uL (134-434); RBC 3.69 10^6/uL (3.60-5.2); RDW 17.4 % (11.6-15.6); WHITE BLOOD COUNT 7.6 10^3/uL (4.0-10.8)
[2022-08-09 13:16] LABS: PLATELET ESTIMATE ADEQUATE
[2022-08-09 13:20] LABS: BILIRUBIN,TOTAL 0.5 mg/dl (0.2-1); CALCIUM 9.1 mg/dl (8.5-10); TOT PROT 7.6 g/dl (6.4-8.2)
[2022-08-09 13:25] LABS: ERYTHROCYTE SEDIMENTATION RATE 43 mm/hr (0-20)
[2022-08-09] MEDS ORDERED: SODIUM CHLORIDE 0.9% 500 ML INFUS.BAG IV ONE (13:46)
[2022-08-09] MEDS ORDERED: KETOROLAC TROMETHAMINE 15 MG/ML VIAL IVPUSH ONE (13:59)
[2022-08-09] MEDS ORDERED: KETOROLAC TROMETHAMINE 15 MG/ML VIAL ONE (14:03)
[2022-08-09] MEDS ORDERED: oxyCODONE HCL 5 MG TABLET PO ONE (20:55)
[2022-08-09] MEDS: QUEtiapine FUMARATE 100 MG TABLET (FP) PO SCH (21:48)
[2022-08-09] MEDS: ATORVASTATIN CA 80 MG TABLET (FP) PO SCH (21:48)
[2022-08-09] MEDS: GABAPENTIN 400 MG CAPSULE PO SCH (21:48)
[2022-08-10] MEDS: oxyCODONE HCL 5 MG TABLET PO PRN ×5 (01:08→19:36)
[2022-08-10] MEDS: ACETAMINOPHEN 325 MG TABLET (FP) PO PRN (01:09)
[2022-08-10] MEDS: GABAPENTIN 400 MG CAPSULE PO SCH ×3 (05:26→21:23)
[2022-08-10] MEDS: INSULIN SLIDING SCALE (NOVOLOG) 1 VIAL SQ SCH ×4 (06:07→18:28)
[2022-08-10] MEDS: INSULIN (LEVEMIR) 100 UNITS/ML UNITS SQ SCH (06:08)
[2022-08-10 07:59] LABS: ALBUMIN 3.6 g/dl (3.4-5.0); BILIRUBIN,TOTAL 0.4 mg/dl (0.2-1); CREATININE 0.9 mg/dl (0.55-1.3)
[2022-08-10] MEDS ORDERED: VANCOMYCIN 1 GRAM (PRE-DOCKED) 1 GM/250 ML BAG IVPB SCH (08:00)
[2022-08-10] MEDS: LIDOCAINE 2.5%/PRILOCAINE 2.5% 30 GRAM TUBE TP SCH ×3 (08:13→22:20)
[2022-08-10] MEDS: KETOROLAC TROMETHAMINE 30 MG/1 ML VIAL IVPUSH SCH ×2 (08:23→18:09)
[2022-08-10] MEDS ORDERED: PATIENT'S OWN MEDICATION (NON-FORMULARY) (Lisinopril [Zestril] 2.5 MG Tablet) PO SCH (10:00)
[2022-08-10] MEDS ORDERED: PATIENT'S OWN MEDICATION (NON-FORMULARY) (Sertraline Hcl [Sertraline Hcl] 100 MG Tablet) PO SCH (10:00)
[2022-08-10] MEDS ORDERED: PATIENT'S OWN MEDICATION (NON-FORMULARY) (Insulin Glargine,Hum.Rec.Anlog [Basaglar Kwikpen SQ SCH (10:00)
[2022-08-10] MEDS: ASPIRIN COATED 81 MG TABLET.EC PO SCH (10:33)
[2022-08-10] MEDS: QUEtiapine FUMARATE 100 MG TABLET (FP) PO SCH ×2 (10:33→21:24)
[2022-08-10] MEDS: SERTRALINE HCL 50 MG TABLET (FP) PO SCH (10:34)
[2022-08-10] MEDS: PANTOPRAZOLE 40 MG TABLET PO SCH (10:34)
[2022-08-10] MEDS: ENOXAPARIN NA (PORCINE) 40 MG/0.4 ML DISP.SYRIN SQ SCH (10:37)
[2022-08-10] MEDS: GABAPENTIN 400 MG CAPSULE PO ONE ×2 (10:45→11:24)
[2022-08-10] MEDS: metoPROLOL SUCCINATE 25 MG TAB.SR.24H (FP) PO SCH (11:22)
[2022-08-10] MEDS: LISINOPRIL 5 MG TABLET PO SCH (11:22)
[2022-08-10 11:54] LABS: BASO % 1.4 % (0-2.0); EOS % 5.7 % (0-4.5); HEMATOCRIT 30.4 % (32.4-45.2); HEMOGLOBIN 9.8 GM/dL (10.7-15.3); MCH 26.9 pg (25.7-33.7); MCHC 32.3 g/dl (32.0-36.0); MEAN CELL VOLUME 83.3 fl (80-96); MEAN PLT VOLUME 8.3 fl (7.5-11.1); MONO % 10.2 % (3.8-10.2); NEUT % 51.7 % (42.8-82.8); PLATELET COUNT 383 10^3/uL (134-434); RBC 3.65 M/mm3 (3.60-5.2); RDW 17.2 % (11.6-15.6); WHITE BLOOD COUNT 5.2 K/mm3 (4.0-10.0)
[2022-08-10] MEDS ORDERED: PIPERACILLIN/TAZOB 3.375 GM 3.375 GM in DEXTROSE 5%-WATER - 50 ML IVPB ONE (12:23)
[2022-08-10] MEDS ORDERED: NALOXONE HCL 0.4 MG/ML VIAL IVPUSH PRN (15:03)
[2022-08-10] MEDS: PIPERACILLIN/TAZOB 3.375 GM 3.375 GM in DEXTROSE 5%-WATER - 50 ML IVPB SCH (18:08)
[2022-08-10] MEDS: ATORVASTATIN CA 80 MG TABLET (FP) PO SCH (21:24)
[2022-08-11] MEDS: PIPERACILLIN/TAZOB 3.375 GM 3.375 GM in DEXTROSE 5%-WATER - 50 ML IVPB SCH ×3 (01:14→17:25)
[2022-08-11] MEDS: KETOROLAC TROMETHAMINE 30 MG/1 ML VIAL IVPUSH SCH ×3 (01:15→17:26)
[2022-08-11] MEDS: oxyCODONE HCL 5 MG TABLET PO PRN ×4 (03:37→21:18)
[2022-08-11] MEDS: ACETAMINOPHEN 325 MG TABLET (FP) PO PRN ×3 (03:38→16:48)
[2022-08-11] MEDS: GABAPENTIN 400 MG CAPSULE PO SCH ×3 (06:37→21:18)
[2022-08-11] MEDS: INSULIN (LEVEMIR) 100 UNITS/ML UNITS SQ SCH (06:41)
[2022-08-11] MEDS: INSULIN SLIDING SCALE (NOVOLOG) 1 VIAL SQ SCH ×3 (06:41→16:32)
[2022-08-11] MEDS ORDERED: VANCOMYCIN 1,000 MG in DEXTROSE 5%-WATER - 250 ML IVPB SCH (07:30)
[2022-08-11] MEDS: LISINOPRIL 5 MG TABLET PO SCH (09:13)
[2022-08-11] MEDS: QUEtiapine FUMARATE 100 MG TABLET (FP) PO SCH ×2 (09:14→21:18)
[2022-08-11] MEDS: metoPROLOL SUCCINATE 25 MG TAB.SR.24H (FP) PO SCH (09:14)
[2022-08-11] MEDS: PANTOPRAZOLE 40 MG TABLET PO SCH (09:14)
[2022-08-11] MEDS: ASPIRIN COATED 81 MG TABLET.EC PO SCH (09:14)
[2022-08-11] MEDS: SERTRALINE HCL 50 MG TABLET (FP) PO SCH (09:14)
[2022-08-11] MEDS: ENOXAPARIN NA (PORCINE) 40 MG/0.4 ML DISP.SYRIN SQ SCH (09:17)
[2022-08-11] MEDS: LIDOCAINE 2.5%/PRILOCAINE 2.5% 30 GRAM TUBE TP SCH ×2 (09:17→21:20)
[2022-08-11] MEDS: ATORVASTATIN CA 80 MG TABLET (FP) PO SCH (21:18)
[2022-08-12] MEDS: oxyCODONE HCL 5 MG TABLET PO PRN ×5 (01:34→21:17)
[2022-08-12] MEDS: PIPERACILLIN/TAZOB 3.375 GM 3.375 GM in DEXTROSE 5%-WATER - 50 ML IVPB SCH ×3 (01:35→17:41)
[2022-08-12] MEDS: KETOROLAC TROMETHAMINE 30 MG/1 ML VIAL IVPUSH SCH (03:18)
[2022-08-12] MEDS: GABAPENTIN 400 MG CAPSULE PO SCH ×3 (06:28→21:17)
[2022-08-12] MEDS: ACETAMINOPHEN 325 MG TABLET (FP) PO PRN ×3 (06:29→23:15)
[2022-08-12] MEDS: INSULIN SLIDING SCALE (NOVOLOG) 1 VIAL SQ SCH ×3 (06:36→17:11)
[2022-08-12] MEDS: INSULIN (LEVEMIR) 100 UNITS/ML UNITS SQ SCH (06:36)
[2022-08-12 08:41] LABS: ALBUMIN 3.3 g/dl (3.4-5.0); BILIRUBIN,TOTAL 0.6 mg/dl (0.2-1); CALCIUM 8.5 mg/dl (8.5-10); CREATININE 1.1 mg/dl (0.55-1.3); TOT PROT 6.3 g/dl (6.4-8.2)
[2022-08-12] MEDS: QUEtiapine FUMARATE 100 MG TABLET (FP) PO SCH ×2 (10:13→21:17)
[2022-08-12] MEDS: metoPROLOL SUCCINATE 25 MG TAB.SR.24H (FP) PO SCH (10:13)
[2022-08-12] MEDS: ASPIRIN COATED 81 MG TABLET.EC PO SCH (10:13)
[2022-08-12] MEDS: SERTRALINE HCL 50 MG TABLET (FP) PO SCH (10:13)
[2022-08-12] MEDS: LISINOPRIL 5 MG TABLET PO SCH (10:13)
[2022-08-12] MEDS: PANTOPRAZOLE 40 MG TABLET PO SCH (10:14)
[2022-08-12 10:28] LABS: BASO % 0.5 % (0-2.0); EOS % 15.6 % (0-4.5); HEMATOCRIT 29.5 % (32.4-45.2); HEMOGLOBIN 9.6 GM/dL (10.7-15.3); LYMPH % 24.1 % (8-40); MCH 27.1 pg (25.7-33.7); MCHC 32.5 g/dl (32.0-36.0); MEAN CELL VOLUME 83.5 fl (80-96); MEAN PLT VOLUME 8.2 fl (7.5-11.1); MONO % 8.5 % (3.8-10.2); NEUT % 51.3 % (42.8-82.8); PLATELET COUNT 371 10^3/uL (134-434); RBC 3.54 M/mm3 (3.60-5.2); RDW 16.9 % (11.6-15.6); WHITE BLOOD COUNT 5.6 K/mm3 (4.0-10.0)
[2022-08-12] MEDS: ENOXAPARIN NA (PORCINE) 40 MG/0.4 ML DISP.SYRIN SQ SCH (10:36)
[2022-08-12] MEDS ORDERED: POTASSIUM CHLORIDE TABS 20 MEQ TABLET.ER (FP) PO ONE (11:15)
[2022-08-12] MEDS: LIDOCAINE 2.5%/PRILOCAINE 2.5% 30 GRAM TUBE TP SCH ×2 (17:12→21:17)
[2022-08-12] MEDS: ATORVASTATIN CA 80 MG TABLET (FP) PO SCH (21:17)
[2022-08-12] MEDS ORDERED: oxyCODONE HCL 5 MG TABLET PO ONE (23:04)
[2022-08-13] MEDS: PIPERACILLIN/TAZOB 3.375 GM 3.375 GM in DEXTROSE 5%-WATER - 50 ML IVPB SCH ×3 (03:24→17:44)
[2022-08-13] MEDS: oxyCODONE HCL 5 MG TABLET PO PRN ×4 (04:28→21:19)
[2022-08-13] MEDS: GABAPENTIN 400 MG CAPSULE PO SCH ×3 (06:14→21:20)
[2022-08-13] MEDS: INSULIN SLIDING SCALE (NOVOLOG) 1 VIAL SQ SCH ×3 (06:15→21:20)
[2022-08-13] MEDS: INSULIN (LEVEMIR) 100 UNITS/ML UNITS SQ SCH (06:15)
[2022-08-13 08:45] LABS: ALBUMIN 2.9 g/dl (3.4-5.0); BILIRUBIN,TOTAL 0.4 mg/dl (0.2-1); CALCIUM 8.5 mg/dl (8.5-10); CREATININE 1.2 mg/dl (0.55-1.3); MAGNESIUM 2.1 mg/dL (1.8-2.4); TOT PROT 5.8 g/dl (6.4-8.2)
[2022-08-13] MEDS: ENOXAPARIN NA (PORCINE) 40 MG/0.4 ML DISP.SYRIN SQ SCH (09:28)
[2022-08-13] MEDS: ACETAMINOPHEN 325 MG TABLET (FP) PO PRN (09:29)
[2022-08-13] MEDS: QUEtiapine FUMARATE 100 MG TABLET (FP) PO SCH ×2 (09:32→21:20)
[2022-08-13] MEDS: metoPROLOL SUCCINATE 25 MG TAB.SR.24H (FP) PO SCH (09:32)
[2022-08-13] MEDS: SERTRALINE HCL 50 MG TABLET (FP) PO SCH (09:33)
[2022-08-13] MEDS: LISINOPRIL 5 MG TABLET PO SCH (09:33)
[2022-08-13] MEDS: PANTOPRAZOLE 40 MG TABLET PO SCH (09:34)
[2022-08-13] MEDS: ASPIRIN COATED 81 MG TABLET.EC PO SCH (09:37)
[2022-08-13] MEDS: LIDOCAINE 2.5%/PRILOCAINE 2.5% 30 GRAM TUBE TP SCH ×2 (12:33→21:21)
[2022-08-13] MEDS ORDERED: oxyCODONE HCL 5 MG TABLET ONE (12:36)
[2022-08-13] MEDS: ATORVASTATIN CA 80 MG TABLET (FP) PO SCH (21:20)
[2022-08-14] MEDS: oxyCODONE HCL 5 MG TABLET PO PRN ×4 (03:48→22:33)
[2022-08-14] MEDS: PIPERACILLIN/TAZOB 3.375 GM 3.375 GM in DEXTROSE 5%-WATER - 50 ML IVPB SCH ×3 (06:22→18:25)
[2022-08-14] MEDS: ACETAMINOPHEN 325 MG TABLET (FP) PO PRN ×2 (06:27→14:46)
[2022-08-14] MEDS: GABAPENTIN 400 MG CAPSULE PO SCH ×3 (06:27→22:28)
[2022-08-14] MEDS: INSULIN SLIDING SCALE (NOVOLOG) 1 VIAL SQ SCH ×3 (06:30→16:57)
[2022-08-14] MEDS: INSULIN (LEVEMIR) 100 UNITS/ML UNITS SQ SCH (07:00)
[2022-08-14] MEDS: PANTOPRAZOLE 40 MG TABLET PO SCH (10:03)
[2022-08-14] MEDS: QUEtiapine FUMARATE 100 MG TABLET (FP) PO SCH ×2 (10:03→22:28)
[2022-08-14] MEDS: LISINOPRIL 5 MG TABLET PO SCH (10:03)
[2022-08-14] MEDS: ASPIRIN COATED 81 MG TABLET.EC PO SCH (10:03)
[2022-08-14] MEDS: SERTRALINE HCL 50 MG TABLET (FP) PO SCH (10:03)
[2022-08-14] MEDS: ENOXAPARIN NA (PORCINE) 40 MG/0.4 ML DISP.SYRIN SQ SCH (10:04)
[2022-08-14] MEDS: LIDOCAINE 2.5%/PRILOCAINE 2.5% 30 GRAM TUBE TP SCH ×2 (10:04→23:45)
[2022-08-14] MEDS: metoPROLOL SUCCINATE 25 MG TAB.SR.24H (FP) PO SCH (10:05)
[2022-08-14] MEDS ORDERED: NALOXONE HCL 0.4 MG/ML VIAL IVPUSH PRN (20:05)
[2022-08-14] MEDS: ATORVASTATIN CA 80 MG TABLET (FP) PO SCH (22:28)
[2022-08-15] MEDS: ACETAMINOPHEN 325 MG TABLET (FP) PO PRN (00:32)
[2022-08-15] MEDS: PIPERACILLIN/TAZOB 3.375 GM 3.375 GM in DEXTROSE 5%-WATER - 50 ML IVPB SCH ×3 (01:46→16:59)
[2022-08-15] MEDS: oxyCODONE HCL 5 MG TABLET PO PRN ×4 (04:10→21:52)
[2022-08-15] MEDS: GABAPENTIN 400 MG CAPSULE PO SCH ×3 (06:55→21:22)
[2022-08-15] MEDS: INSULIN (LEVEMIR) 100 UNITS/ML UNITS SQ SCH (06:56)
[2022-08-15] MEDS: INSULIN SLIDING SCALE (NOVOLOG) 1 VIAL SQ SCH ×3 (06:56→16:58)
[2022-08-15] MEDS: ENOXAPARIN NA (PORCINE) 40 MG/0.4 ML DISP.SYRIN SQ SCH (10:10)
[2022-08-15] MEDS: LISINOPRIL 5 MG TABLET PO SCH (10:10)
[2022-08-15] MEDS: SERTRALINE HCL 50 MG TABLET (FP) PO SCH (10:10)
[2022-08-15] MEDS: ASPIRIN COATED 81 MG TABLET.EC PO SCH (10:10)
[2022-08-15] MEDS: PANTOPRAZOLE 40 MG TABLET PO SCH (10:10)
[2022-08-15] MEDS: QUEtiapine FUMARATE 100 MG TABLET (FP) PO SCH ×2 (10:10→21:22)
[2022-08-15] MEDS: metoPROLOL SUCCINATE 25 MG TAB.SR.24H (FP) PO SCH (10:13)
[2022-08-15] MEDS: LIDOCAINE 2.5%/PRILOCAINE 2.5% 30 GRAM TUBE TP SCH (10:49)
[2022-08-15] MEDS: ATORVASTATIN CA 80 MG TABLET (FP) PO SCH (21:21)
[2022-08-15] MEDS: LIDOCAINE 2.5%/PRILOCAINE 2.5% (5 Gram/TUBE) TP SCH (21:51)
[2022-08-16] MEDS: PIPERACILLIN/TAZOB 3.375 GM 3.375 GM in DEXTROSE 5%-WATER - 50 ML IVPB SCH ×3 (01:39→17:33)
[2022-08-16] MEDS: ACETAMINOPHEN 325 MG TABLET (FP) PO PRN ×2 (01:42→12:27)
[2022-08-16] MEDS: oxyCODONE HCL 5 MG TABLET PO PRN ×3 (04:06→16:44)
[2022-08-16] MEDS: GABAPENTIN 400 MG CAPSULE PO SCH ×3 (06:09→21:19)
[2022-08-16] MEDS ORDERED: BISMUTH SUBSALICYLATE 262 MG/15 ML BTL PO ONE (06:42)
[2022-08-16] MEDS: INSULIN (LEVEMIR) 100 UNITS/ML UNITS SQ SCH (06:52)
[2022-08-16] MEDS: INSULIN SLIDING SCALE (NOVOLOG) 1 VIAL SQ SCH ×3 (06:53→17:32)
[2022-08-16] MEDS ORDERED: INSULIN (NOVOLOG) ASPART 100 UNITS/ML 10ML VIAL ONE (06:57)
[2022-08-16] MEDS: PANTOPRAZOLE 40 MG TABLET PO SCH (10:07)
[2022-08-16] MEDS: LISINOPRIL 5 MG TABLET PO SCH (10:07)
[2022-08-16] MEDS: QUEtiapine FUMARATE 100 MG TABLET (FP) PO SCH ×2 (10:07→21:20)
[2022-08-16] MEDS: SERTRALINE HCL 50 MG TABLET (FP) PO SCH (10:08)
[2022-08-16] MEDS: metoPROLOL SUCCINATE 25 MG TAB.SR.24H (FP) PO SCH (10:08)
[2022-08-16] MEDS: LIDOCAINE 2.5%/PRILOCAINE 2.5% (5 Gram/TUBE) TP SCH ×2 (10:39→21:19)
[2022-08-16 10:49] LABS: BASO % 0.9 % (0-2.0); EOS % 9.1 % (0-4.5); HEMOGLOBIN 11.9 GM/dL (10.7-15.3); MCH 27.2 pg (25.7-33.7); MCHC 32.1 g/dl (32.0-36.0); MEAN CELL VOLUME 84.9 fl (80-96); MEAN PLT VOLUME 7.7 fl (7.5-11.1); MONO % 8.3 % (3.8-10.2); NEUT % 49.7 % (42.8-82.8); PLATELET COUNT 370 10^3/uL (134-434); RBC 4.36 M/mm3 (3.60-5.2); RDW 17.1 % (11.6-15.6); WHITE BLOOD COUNT 3.8 K/mm3 (4.0-10.0)
[2022-08-16 11:09] LABS: BLOOD UREA NITROGEN 7.4 mg/dL (7-18); CALCIUM 9.5 mg/dL (8.5-10.1)
[2022-08-16 11:13] LABS: CREATININE 1.2 mg/dL (0.55-1.3)
[2022-08-16] MEDS: ENOXAPARIN NA (PORCINE) 40 MG/0.4 ML DISP.SYRIN SQ SCH (11:32)
[2022-08-16] MEDS: ASPIRIN COATED 81 MG TABLET.EC PO SCH (11:32)
[2022-08-16] MEDS ORDERED: ACETAMINOPHEN 325 MG TABLET (FP) PO PRN (12:55)
[2022-08-16] MEDS: SODIUM CHLORIDE 1,000 ML IV SCH (15:34)
[2022-08-16] MEDS: ATORVASTATIN CA 80 MG TABLET (FP) PO SCH (21:19)
[2022-08-16 21:25] VITALS: BMI 25.1
[2022-08-17] MEDS: oxyCODONE HCL 5 MG TABLET PO PRN ×3 (00:54→17:35)
[2022-08-17] MEDS: PIPERACILLIN/TAZOB 3.375 GM 3.375 GM in DEXTROSE 5%-WATER - 50 ML IVPB SCH ×3 (01:45→17:11)
[2022-08-17] MEDS: GABAPENTIN 400 MG CAPSULE PO SCH ×3 (05:29→22:11)
[2022-08-17] MEDS: SODIUM CHLORIDE 1,000 ML IV SCH ×2 (05:34→16:30)
[2022-08-17] MEDS: INSULIN (LEVEMIR) 100 UNITS/ML UNITS SQ SCH ×2 (06:18→22:13)
[2022-08-17] MEDS: INSULIN SLIDING SCALE (NOVOLOG) 1 VIAL SQ SCH ×3 (06:18→17:04)
[2022-08-17] MEDS: QUEtiapine FUMARATE 100 MG TABLET (FP) PO SCH ×2 (09:03→22:11)
[2022-08-17] MEDS: LISINOPRIL 5 MG TABLET PO SCH (09:03)
[2022-08-17] MEDS: PANTOPRAZOLE 40 MG TABLET PO SCH (09:04)
[2022-08-17] MEDS: metoPROLOL SUCCINATE 25 MG TAB.SR.24H (FP) PO SCH (09:04)
[2022-08-17] MEDS: SERTRALINE HCL 50 MG TABLET (FP) PO SCH (09:04)
[2022-08-17 10:17] LABS: BASO % 0.7 % (0-2.0); EOS % 6.6 % (0-4.5); HEMATOCRIT 32.9 % (32.4-45.2); HEMOGLOBIN 10.5 GM/dL (10.7-15.3); LYMPH % 30.5 % (8-40); MCH 26.8 pg (25.7-33.7); MEAN PLT VOLUME 7.7 fl (7.5-11.1); MONO % 8.7 % (3.8-10.2); NEUT % 53.5 % (42.8-82.8); PLATELET COUNT 460 10^3/uL (134-434); RBC 3.91 M/mm3 (3.60-5.2); WHITE BLOOD COUNT 5.2 K/mm3 (4.0-10.0)
[2022-08-17] MEDS: LIDOCAINE 2.5%/PRILOCAINE 2.5% (5 Gram/TUBE) TP SCH ×2 (10:24→23:00)
[2022-08-17 10:28] LABS: CHLORIDE 110 mmol/L (98-107); SODIUM 141 mmol/L (136-145)
[2022-08-17 10:37] LABS: ANION GAP 8 MMOL/L (8-16); BLOOD UREA NITROGEN 7.6 mg/dL (7-18); CO2 24 mmol/L (21-32); GLUCOSE,RANDOM 119 mg/dL (74-106)
[2022-08-17 10:40] LABS: CREATININE 1.2 mg/dL (0.55-1.3); SGOT/AST 9 U/L (15-37); SGPT/ALT 16 U/L (13-61)
[2022-08-17 10:42] LABS: BILIRUBIN,TOTAL 0.2 mg/dL (0.2-1); TOT PROT 6.6 g/dl (6.4-8.2)
[2022-08-17 10:43] LABS: ALK PHOS 44 U/L (45-117)
[2022-08-17 10:48] LABS: ALBUMIN 3.1 g/dl (3.4-5.0)
[2022-08-17] MEDS ORDERED: FENTANYL CITRATE/PF 50 MCG/ML VIAL ONE ×3 (13:05→14:35)
[2022-08-17] MEDS ORDERED: MIDAZOLAM HCL 2 MG/2 ML SINGLE DOSE VIAL ONE ×2 (13:05→14:12)
[2022-08-17] MEDS ORDERED: HEPARIN NA (PORCINE) 5,000 UNITS/ML 1ML VIAL ONE ×2 (13:34→14:34)
[2022-08-17] MEDS ORDERED: LIDOCAINE HCL 1%, 10 MG/ML (20ML VIAL) ONE (13:34)
[2022-08-17] MEDS ORDERED: ONDANSETRON 4 MG/2 ML VIAL IVPUSH PRN ×2 (13:35→16:22)
[2022-08-17] MEDS ORDERED: FENTANYL CITRATE/PF 50 MCG/ML VIAL IVPUSH PRN ×2 (13:35→16:22)
[2022-08-17] MEDS ORDERED: ceFAZolin SODIUM 1 GM VIAL ONE (14:04)
[2022-08-17] MEDS ORDERED: ceFAZolin 2 GRAM PREMIX BAG IVPB ONE (14:05)
[2022-08-17] MEDS ORDERED: LIDOCAINE HCL 1%, 10 MG/ML (50 mL VIAL) INF ONE (14:15)
[2022-08-17] MEDS ORDERED: PROPOFOL 20 ML ONE (14:47)
[2022-08-17] MEDS ORDERED: DEXAMETHASONE SOD PHOSPHATE 4 MG/1 ML VIAL ONE (15:05)
[2022-08-17] MEDS ORDERED: ONDANSETRON 4 MG/2 ML VIAL ONE (15:05)
[2022-08-17] MEDS ORDERED: NALOXONE HCL 0.4 MG/ML VIAL IVPUSH PRN (16:22)
[2022-08-17] MEDS: CLOPIDOGREL BISULFATE 75 MG TABLET (FP) PO SCH ×2 (16:25→16:28)
[2022-08-17] MEDS ORDERED: CLOPIDOGREL BISULFATE 75 MG TABLET (FP) ONE (16:35)
[2022-08-17] MEDS ORDERED: INSULIN (LEVEMIR) 100 UNITS/ML UNITS SQ SCH (22:00)
[2022-08-17] MEDS: ACETAMINOPHEN 325 MG TABLET (FP) PO PRN (22:11)
[2022-08-17] MEDS: ATORVASTATIN CA 80 MG TABLET (FP) PO SCH (22:13)
[2022-08-18] MEDS: PIPERACILLIN/TAZOB 3.375 GM 3.375 GM in DEXTROSE 5%-WATER - 50 ML IVPB SCH ×3 (02:02→17:18)
[2022-08-18] MEDS: GABAPENTIN 400 MG CAPSULE PO SCH ×3 (06:00→21:30)
[2022-08-18] MEDS: SODIUM CHLORIDE 1,000 ML IV SCH ×2 (06:03→16:31)
[2022-08-18] MEDS: INSULIN (LEVEMIR) 100 UNITS/ML UNITS SQ SCH ×2 (06:55→21:32)
[2022-08-18] MEDS: INSULIN SLIDING SCALE (NOVOLOG) 1 VIAL SQ SCH ×3 (06:55→16:32)
[2022-08-18] MEDS: CLOPIDOGREL BISULFATE 75 MG TABLET (FP) PO SCH (09:20)
[2022-08-18] MEDS: LISINOPRIL 5 MG TABLET PO SCH (09:20)
[2022-08-18] MEDS: PANTOPRAZOLE 40 MG TABLET PO SCH (09:20)
[2022-08-18] MEDS: oxyCODONE HCL 5 MG TABLET PO PRN ×2 (09:21→16:39)
[2022-08-18] MEDS: QUEtiapine FUMARATE 100 MG TABLET (FP) PO SCH ×2 (09:22→21:31)
[2022-08-18] MEDS: ENOXAPARIN NA (PORCINE) 40 MG/0.4 ML DISP.SYRIN SQ SCH (09:22)
[2022-08-18] MEDS: metoPROLOL SUCCINATE 25 MG TAB.SR.24H (FP) PO SCH (09:22)
[2022-08-18] MEDS: SERTRALINE HCL 50 MG TABLET (FP) PO SCH (09:22)
[2022-08-18 09:53] LABS: BASO % 0.8 % (0-2.0); EOS % 1.1 % (0-4.5); HEMATOCRIT 26.4 % (32.4-45.2); HEMOGLOBIN 8.9 GM/dL (10.7-15.3); LYMPH % 17.4 % (8-40); MCH 27.8 pg (25.7-33.7); MCHC 33.6 g/dl (32.0-36.0); MEAN CELL VOLUME 82.9 fl (80-96); MEAN PLT VOLUME 7.5 fl (7.5-11.1); MONO % 9.9 % (3.8-10.2); NEUT % 70.8 % (42.8-82.8); PLATELET COUNT 380 10^3/uL (134-434); RBC 3.19 M/mm3 (3.60-5.2); RDW 16.8 % (11.6-15.6); WHITE BLOOD COUNT 7.5 K/mm3 (4.0-10.0)
[2022-08-18 10:15] LABS: CALCIUM 8.9 mg/dL (8.5-10.1)
[2022-08-18 10:16] LABS: BLOOD UREA NITROGEN 10.3 mg/dL (7-18)
[2022-08-18] MEDS: ASPIRIN COATED 81 MG TABLET.EC PO SCH (10:36)
[2022-08-18] MEDS: LIDOCAINE 2.5%/PRILOCAINE 2.5% (5 Gram/TUBE) TP SCH ×2 (10:37→22:45)
[2022-08-18] MEDS ORDERED: LORazepam 2 MG/ML SDV VIAL IVPUSH PRN (11:26)
[2022-08-18] MEDS ORDERED: INSULIN (NOVOLOG) ASPART 100 UNITS/ML 10ML VIAL ONE (12:00)
[2022-08-18] MEDS: BANATROL PLUS POWDER PACKET PO SCH ×2 (13:12→21:30)
[2022-08-18] MEDS: ACETAMINOPHEN 325 MG TABLET (FP) PO PRN (21:31)
[2022-08-18] MEDS: ATORVASTATIN CA 80 MG TABLET (FP) PO SCH (21:31)
[2022-08-19] MEDS: oxyCODONE HCL 5 MG TABLET PO PRN ×3 (00:16→13:00)
[2022-08-19] MEDS: PIPERACILLIN/TAZOB 3.375 GM 3.375 GM in DEXTROSE 5%-WATER - 50 ML IVPB SCH (06:48)
[2022-08-19] MEDS: BANATROL PLUS POWDER PACKET PO SCH ×3 (06:48→21:24)
[2022-08-19] MEDS: GABAPENTIN 400 MG CAPSULE PO SCH ×3 (06:48→21:26)
[2022-08-19] MEDS: INSULIN (LEVEMIR) 100 UNITS/ML UNITS SQ SCH ×2 (06:49→21:32)
[2022-08-19] MEDS: INSULIN SLIDING SCALE (NOVOLOG) 1 VIAL SQ SCH ×3 (06:59→17:13)
[2022-08-19] MEDS: CLOPIDOGREL BISULFATE 75 MG TABLET (FP) PO SCH (09:18)
[2022-08-19] MEDS: LISINOPRIL 5 MG TABLET PO SCH (09:19)
[2022-08-19] MEDS: QUEtiapine FUMARATE 100 MG TABLET (FP) PO SCH ×2 (09:19→21:26)
[2022-08-19] MEDS: ASPIRIN COATED 81 MG TABLET.EC PO SCH (09:19)
[2022-08-19] MEDS: PANTOPRAZOLE 40 MG TABLET PO SCH (09:19)
[2022-08-19] MEDS: SERTRALINE HCL 50 MG TABLET (FP) PO SCH (09:20)
[2022-08-19] MEDS: metoPROLOL SUCCINATE 25 MG TAB.SR.24H (FP) PO SCH (09:20)
[2022-08-19] MEDS: ENOXAPARIN NA (PORCINE) 40 MG/0.4 ML DISP.SYRIN SQ SCH (10:46)
[2022-08-19] MEDS: LIDOCAINE 2.5%/PRILOCAINE 2.5% (5 Gram/TUBE) TP SCH ×2 (10:49→21:26)
[2022-08-19] MEDS ORDERED: INSULIN (NOVOLOG) ASPART 100 UNITS/ML 10ML VIAL ONE ×3 (11:09→21:15)
[2022-08-19] MEDS ORDERED: LORazepam 2 MG TABLET PO PRN (12:20)
[2022-08-19] MEDS: LORazepam 1 MG TABLET PO PRN ×2 (12:59→21:30)
[2022-08-19 13:50] LABS: CALCIUM 9.2 mg/dL (8.5-10.1)
[2022-08-19 13:51] LABS: BLOOD UREA NITROGEN 4.6 mg/dL (7-18)
[2022-08-19 13:55] LABS: CREATININE 1.1 mg/dL (0.55-1.3)
[2022-08-19] MEDS: SODIUM CHLORIDE 1,000 ML IV SCH (17:05)
[2022-08-19] MEDS: ATORVASTATIN CA 80 MG TABLET (FP) PO SCH (21:26)
[2022-08-20] MEDS: oxyCODONE HCL 5 MG TABLET PO PRN ×3 (03:18→22:20)
[2022-08-20] MEDS: INSULIN (LEVEMIR) 100 UNITS/ML UNITS SQ SCH ×2 (06:19→21:32)
[2022-08-20] MEDS: GABAPENTIN 400 MG CAPSULE PO SCH ×3 (06:19→21:25)
[2022-08-20] MEDS: INSULIN SLIDING SCALE (NOVOLOG) 1 VIAL SQ SCH ×3 (06:19→16:33)
[2022-08-20] MEDS: BANATROL PLUS POWDER PACKET PO SCH ×3 (06:19→21:26)
[2022-08-20] MEDS: ACETAMINOPHEN 325 MG TABLET (FP) PO PRN (06:53)
[2022-08-20] MEDS: ASPIRIN COATED 81 MG TABLET.EC PO SCH (09:40)
[2022-08-20] MEDS: CLOPIDOGREL BISULFATE 75 MG TABLET (FP) PO SCH (09:40)
[2022-08-20] MEDS: LISINOPRIL 5 MG TABLET PO SCH (09:40)
[2022-08-20] MEDS: PANTOPRAZOLE 40 MG TABLET PO SCH (09:40)
[2022-08-20] MEDS: metoPROLOL SUCCINATE 25 MG TAB.SR.24H (FP) PO SCH (09:40)
[2022-08-20] MEDS: SERTRALINE HCL 50 MG TABLET (FP) PO SCH (09:41)
[2022-08-20] MEDS: QUEtiapine FUMARATE 100 MG TABLET (FP) PO SCH ×2 (09:41→21:25)
[2022-08-20] MEDS: ENOXAPARIN NA (PORCINE) 40 MG/0.4 ML DISP.SYRIN SQ SCH (09:41)
[2022-08-20] MEDS: LIDOCAINE 2.5%/PRILOCAINE 2.5% (5 Gram/TUBE) TP SCH ×2 (09:51→21:26)
[2022-08-20] MEDS ORDERED: FLU VACC QS2022-23(6MOS UP)/PF 60 MCG/0.5 ML SYRINGE IM ONE (10:00)
[2022-08-20 11:37] LABS: HEMATOCRIT 28.2 % (32.4-45.2); HEMOGLOBIN 9.2 GM/dL (10.7-15.3); MCHC 32.6 g/dl (32.0-36.0); MEAN CELL VOLUME 82.9 fl (80-96); MEAN PLT VOLUME 7.9 fl (7.5-11.1); PLATELET COUNT 459 10^3/uL (134-434); RDW 16.8 % (11.6-15.6); WHITE BLOOD COUNT 6.8 K/mm3 (4.0-10.0)
[2022-08-20 11:41] LABS: CALCIUM 9.1 mg/dL (8.5-10.1)
[2022-08-20 11:42] LABS: BLOOD UREA NITROGEN 5.2 mg/dL (7-18)
[2022-08-20] MEDS ORDERED: INSULIN (NOVOLOG) ASPART 100 UNITS/ML 10ML VIAL ONE (11:54)
[2022-08-20 12:42] LABS: ANISOCYTOSIS 1+; MACROCYTOSIS 0
[2022-08-20] MEDS: SODIUM CHLORIDE 1,000 ML IV SCH (16:33)
[2022-08-20] MEDS: ATORVASTATIN CA 80 MG TABLET (FP) PO SCH (21:25)
[2022-08-20] MEDS: LORazepam 1 MG TABLET PO PRN (21:25)
[2022-08-21] MEDS: oxyCODONE HCL 5 MG TABLET PO PRN ×2 (04:03→10:27)
[2022-08-21] MEDS: BANATROL PLUS POWDER PACKET PO SCH ×3 (06:34→22:58)
[2022-08-21] MEDS: GABAPENTIN 400 MG CAPSULE PO SCH ×3 (06:35→22:57)
[2022-08-21] MEDS: INSULIN SLIDING SCALE (NOVOLOG) 1 VIAL SQ SCH ×3 (06:36→16:38)
[2022-08-21] MEDS: INSULIN (LEVEMIR) 100 UNITS/ML UNITS SQ SCH ×2 (06:36→22:58)
[2022-08-21] MEDS: CLOPIDOGREL BISULFATE 75 MG TABLET (FP) PO SCH (10:25)
[2022-08-21] MEDS: ASPIRIN COATED 81 MG TABLET.EC PO SCH (10:25)
[2022-08-21] MEDS: ENOXAPARIN NA (PORCINE) 40 MG/0.4 ML DISP.SYRIN SQ SCH (10:25)
[2022-08-21] MEDS: metoPROLOL SUCCINATE 25 MG TAB.SR.24H (FP) PO SCH (10:26)
[2022-08-21] MEDS: SERTRALINE HCL 50 MG TABLET (FP) PO SCH (10:26)
[2022-08-21] MEDS: PANTOPRAZOLE 40 MG TABLET PO SCH (10:26)
[2022-08-21] MEDS: LISINOPRIL 5 MG TABLET PO SCH (10:27)
[2022-08-21] MEDS: QUEtiapine FUMARATE 100 MG TABLET (FP) PO SCH ×2 (10:27→22:58)
[2022-08-21] MEDS: LIDOCAINE 2.5%/PRILOCAINE 2.5% (5 Gram/TUBE) TP SCH ×2 (10:33→23:10)
[2022-08-21 10:53] LABS: BASO % 0.9 % (0-2.0); EOS % 9.7 % (0-4.5); HEMATOCRIT 30.1 % (32.4-45.2); HEMOGLOBIN 9.9 GM/dL (10.7-15.3); LYMPH % 27.1 % (8-40); MCH 27.1 pg (25.7-33.7); MCHC 32.8 g/dl (32.0-36.0); MEAN CELL VOLUME 82.9 fl (80-96); MEAN PLT VOLUME 7.6 fl (7.5-11.1); MONO % 8.7 % (3.8-10.2); NEUT % 53.6 % (42.8-82.8); PLATELET COUNT 477 10^3/uL (134-434); RBC 3.64 M/mm3 (3.60-5.2); WHITE BLOOD COUNT 6.4 K/mm3 (4.0-10.0)
[2022-08-21] MEDS ORDERED: INSULIN (NOVOLOG) ASPART 100 UNITS/ML 10ML VIAL ONE (11:47)
[2022-08-21 11:58] LABS: CHLORIDE 108 mmol/L (98-107); SODIUM 141 mmol/L (136-145)
[2022-08-21 11:59] LABS: GLUCOSE,RANDOM 194 mg/dL (74-106)
[2022-08-21 12:01] LABS: ANION GAP 10 MMOL/L (8-16); CALCIUM 9.4 mg/dL (8.5-10.1); CO2 23 mmol/L (21-32)
[2022-08-21 12:05] LABS: BLOOD UREA NITROGEN 2.7 mg/dL (7-18)
[2022-08-21] MEDS: PIPERACILLIN/TAZOB 4.5 GM 4.5 GM in DEXTROSE 5%-WATER 100 ML IVPB SCH (17:58)
[2022-08-21] MEDS: SODIUM CHLORIDE 1,000 ML IV SCH (18:25)
[2022-08-21] MEDS: ATORVASTATIN CA 80 MG TABLET (FP) PO SCH (22:57)
[2022-08-21] MEDS: LORazepam 1 MG TABLET PO PRN (23:06)
[2022-08-22] MEDS: PIPERACILLIN/TAZOB 4.5 GM 4.5 GM in DEXTROSE 5%-WATER 100 ML IVPB SCH ×3 (01:58→17:32)
[2022-08-22] MEDS: oxyCODONE HCL 5 MG TABLET PO PRN ×4 (02:36→22:35)
[2022-08-22] MEDS: MELATONIN 5 MG TABLETS PO PRN ×2 (03:07→22:34)
[2022-08-22] MEDS: GABAPENTIN 400 MG CAPSULE PO SCH ×3 (06:45→22:05)
[2022-08-22] MEDS: INSULIN SLIDING SCALE (NOVOLOG) 1 VIAL SQ SCH ×3 (06:45→16:38)
[2022-08-22] MEDS: INSULIN (LEVEMIR) 100 UNITS/ML UNITS SQ SCH ×2 (06:46→22:05)
[2022-08-22] MEDS: BANATROL PLUS POWDER PACKET PO SCH ×3 (06:46→22:05)
[2022-08-22] MEDS: ASPIRIN COATED 81 MG TABLET.EC PO SCH (09:59)
[2022-08-22] MEDS: ENOXAPARIN NA (PORCINE) 40 MG/0.4 ML DISP.SYRIN SQ SCH (09:59)
[2022-08-22] MEDS: LISINOPRIL 5 MG TABLET PO SCH (10:00)
[2022-08-22] MEDS: CLOPIDOGREL BISULFATE 75 MG TABLET (FP) PO SCH (10:00)
[2022-08-22] MEDS: PANTOPRAZOLE 40 MG TABLET PO SCH (10:01)
[2022-08-22] MEDS: metoPROLOL SUCCINATE 25 MG TAB.SR.24H (FP) PO SCH (10:01)
[2022-08-22] MEDS: SERTRALINE HCL 50 MG TABLET (FP) PO SCH (10:02)
[2022-08-22] MEDS: LIDOCAINE 2.5%/PRILOCAINE 2.5% (5 Gram/TUBE) TP SCH ×2 (10:03→22:08)
[2022-08-22] MEDS: QUEtiapine FUMARATE 100 MG TABLET (FP) PO SCH ×2 (10:04→22:05)
[2022-08-22] MEDS: LORazepam 1 MG TABLET PO PRN ×2 (11:51→22:35)
[2022-08-22] MEDS ORDERED: INSULIN (NOVOLOG) ASPART 100 UNITS/ML 10ML VIAL ONE ×2 (11:55→16:20)
[2022-08-22] MEDS: SODIUM CHLORIDE 1,000 ML IV SCH (16:25)
[2022-08-22] MEDS: ATORVASTATIN CA 80 MG TABLET (FP) PO SCH (22:05)
[2022-08-23] MEDS: PIPERACILLIN/TAZOB 4.5 GM 4.5 GM in DEXTROSE 5%-WATER 100 ML IVPB SCH ×3 (01:42→17:42)
[2022-08-23] MEDS: oxyCODONE HCL 5 MG TABLET PO PRN ×4 (04:53→22:20)
[2022-08-23] MEDS: INSULIN (LEVEMIR) 100 UNITS/ML UNITS SQ SCH ×2 (06:27→21:27)
[2022-08-23] MEDS: BANATROL PLUS POWDER PACKET PO SCH ×3 (06:27→21:21)
[2022-08-23] MEDS: GABAPENTIN 400 MG CAPSULE PO SCH ×3 (06:27→21:20)
[2022-08-23] MEDS: INSULIN SLIDING SCALE (NOVOLOG) 1 VIAL SQ SCH ×4 (06:28→16:42)
[2022-08-23] MEDS: SERTRALINE HCL 50 MG TABLET (FP) PO SCH (09:20)
[2022-08-23] MEDS: ASPIRIN COATED 81 MG TABLET.EC PO SCH (09:20)
[2022-08-23] MEDS: QUEtiapine FUMARATE 100 MG TABLET (FP) PO SCH ×2 (09:20→21:21)
[2022-08-23] MEDS: ENOXAPARIN NA (PORCINE) 40 MG/0.4 ML DISP.SYRIN SQ SCH (09:21)
[2022-08-23] MEDS: CLOPIDOGREL BISULFATE 75 MG TABLET (FP) PO SCH (09:21)
[2022-08-23] MEDS: PANTOPRAZOLE 40 MG TABLET PO SCH (09:21)
[2022-08-23] MEDS: metoPROLOL SUCCINATE 25 MG TAB.SR.24H (FP) PO SCH (09:23)
[2022-08-23] MEDS: LISINOPRIL 5 MG TABLET PO SCH (09:25)
[2022-08-23] MEDS: LORazepam 1 MG TABLET PO PRN ×2 (10:10→22:21)
[2022-08-23] MEDS: LIDOCAINE 2.5%/PRILOCAINE 2.5% (5 Gram/TUBE) TP SCH ×2 (10:11→21:33)
[2022-08-23] MEDS ORDERED: INSULIN (NOVOLOG) ASPART 100 UNITS/ML 10ML VIAL ONE ×2 (11:27→16:36)
[2022-08-23] MEDS: SODIUM CHLORIDE 1,000 ML IV SCH (16:38)
[2022-08-23] MEDS: ATORVASTATIN CA 80 MG TABLET (FP) PO SCH (21:20)
[2022-08-23] MEDS: MELATONIN 5 MG TABLETS PO PRN (21:20)
[2022-08-24] MEDS: ACETAMINOPHEN 325 MG TABLET (FP) PO PRN (01:16)
[2022-08-24] MEDS: PIPERACILLIN/TAZOB 4.5 GM 4.5 GM in DEXTROSE 5%-WATER 100 ML IVPB SCH ×3 (01:51→11:40)
[2022-08-24] MEDS ORDERED: INSULIN (NOVOLOG) ASPART 100 UNITS/ML 10ML VIAL ONE (05:46)
[2022-08-24] MEDS: GABAPENTIN 400 MG CAPSULE PO SCH ×2 (05:54→13:20)
[2022-08-24] MEDS: oxyCODONE HCL 5 MG TABLET PO PRN ×2 (05:54→13:20)
[2022-08-24] MEDS: BANATROL PLUS POWDER PACKET PO SCH ×2 (05:55→13:21)
[2022-08-24] MEDS: INSULIN (LEVEMIR) 100 UNITS/ML UNITS SQ SCH (06:32)
[2022-08-24] MEDS: INSULIN SLIDING SCALE (NOVOLOG) 1 VIAL SQ SCH ×2 (06:33→11:47)
[2022-08-24] MEDS: PANTOPRAZOLE 40 MG TABLET PO SCH (09:09)
[2022-08-24] MEDS: CLOPIDOGREL BISULFATE 75 MG TABLET (FP) PO SCH (09:09)
[2022-08-24] MEDS: QUEtiapine FUMARATE 100 MG TABLET (FP) PO SCH (09:09)
[2022-08-24] MEDS: metoPROLOL SUCCINATE 25 MG TAB.SR.24H (FP) PO SCH (09:10)
[2022-08-24] MEDS: SERTRALINE HCL 50 MG TABLET (FP) PO SCH (09:10)
[2022-08-24] MEDS: ASPIRIN COATED 81 MG TABLET.EC PO SCH (09:10)
[2022-08-24] MEDS: LISINOPRIL 5 MG TABLET PO SCH (09:10)
[2022-08-24] MEDS: LORazepam 1 MG TABLET PO PRN (09:10)
[2022-08-24] MEDS: ENOXAPARIN NA (PORCINE) 40 MG/0.4 ML DISP.SYRIN SQ SCH (09:11)
[2022-08-24] MEDS: LIDOCAINE 2.5%/PRILOCAINE 2.5% (5 Gram/TUBE) TP SCH (09:13)
[2022-08-24 12:57] VITALS: BP 136/78; PULSE 70; RESP 20; TEMP 98.1
== END 2022-08-24 15:00 | disposition home or self-care (01) | DRG 253 ==
LOC: FER 10:44 → FM/S 17:29 → J6S 08-13 19:48
PROVIDERS: ADMIT Internal Medicine; ATTEND Internal Medicine
PROC: B41DZZZ Fluoroscopy of Aorta and Bilateral Lower Extremity Arteries (ICD-10-PCS; 2022-08-17)
PROC: 3E05317 Introduction of Other Thrombolytic into Peripheral Artery, Percutaneous Approach (ICD-10-PCS; 2022-08-17)
PROC: 047Q3ZZ Dilation of Left Anterior Tibial Artery, Percutaneous Approach (ICD-10-PCS; principal; 2022-08-17 13:00)
PROC: B548ZZA Ultrasonography of Superior Vena Cava, Guidance (ICD-10-PCS; 2022-08-24)
PROC: 02HV33Z Insertion of Infusion Device into Superior Vena Cava, Percutaneous Approach (ICD-10-PCS; 2022-08-24)
DX: E11.51 Type 2 diabetes mellitus with diabetic peripheral angiopathy without gangrene (principal); E87.1 Hypo-osmolality and hyponatremia; L03.115 Cellulitis of right lower limb; M86.8X7 Other osteomyelitis, ankle and foot; L97.919 Non-pressure chronic ulcer of unspecified part of right lower leg with unspecified severity; I25.10 Atherosclerotic heart disease of native coronary artery without angina pectoris; E78.5 Hyperlipidemia, unspecified; I11.0 Hypertensive heart disease with heart failure; I50.9 Heart failure, unspecified; Z79.4 Long term (current) use of insulin; E11.621 Type 2 diabetes mellitus with foot ulcer; L97.519 Non-pressure chronic ulcer of other part of right foot with unspecified severity; Z95.1 Presence of aortocoronary bypass graft; F32.A Depression, unspecified; E87.6 Hypokalemia; E11.69 Type 2 diabetes mellitus with other specified complication; F41.9 Anxiety disorder, unspecified; R19.7 Diarrhea, unspecified; R94.31 Abnormal electrocardiogram [ECG] [EKG]; W01.0XXA Fall on same level from slipping, tripping and stumbling without subsequent striking against object, initial encounter; Y93.89 Activity, other specified; Y92.230 Patient room in hospital as the place of occurrence of the external cause; Y99.8 Other external cause status
CPT/HCPCS: 36415; 36569; 70450-TC; 73630-TC-RT-FY; 73718-TC-RT; 75635-TC; 76000-TC-FY; 77001-TC-FY; 80048; 80053; 82436; 82962; 83735; 83930; 83935; 84133; 84300; 84702; 85025; 85651; 86140; 87040; 87070; 87186; 87205; 87324; 87449; 93005; 93010; 94760; 97116-GP; 97161-GP; 99285-25; C1725; C1751; C1760; C9803-CS; G0008; J1644; Q2036; Q9967; U0003; U0005

== ENCOUNTER 2022-09-09 14:35 | Observation (INO) | payer MEDICARE ==
[2022-09-09] MEDS ORDERED: PIPERACILLIN/TAZOB 4.5 GM 4.5 GM in DEXTROSE 5%-WATER 100 ML IVPB ONE (17:59)
[2022-09-09] MEDS ORDERED: PIPERACILLIN/TAZOB 4.5 GM 4.5 GM/100 ML BAG IVPB ONE ×2 (18:09→19:22)
[2022-09-09 19:10] LABS: BASO % 1.2 % (0-2.0); EOS % 6.5 % (0-4.5); HEMATOCRIT 26.9 % (32.4-45.2); HEMOGLOBIN 8.7 GM/dL (10.7-15.3); LYMPH % 28.7 % (8-40); MCH 26.3 pg (25.7-33.7); MCHC 32.5 g/dl (32.0-36.0); MEAN CELL VOLUME 80.8 fl (80-96); MONO % 23.6 % (3.8-10.2); PLATELET COUNT 250 10^3/uL (134-434); RBC 3.33 M/mm3 (3.60-5.2); RDW 16.6 % (11.6-15.6); WHITE BLOOD COUNT 3.2 K/mm3 (4.0-10.0)
[2022-09-09] MEDS ORDERED: ACETAMINOPHEN 1000 MG/100 ML BAG IVPB ONE (19:20)
[2022-09-09] MEDS ORDERED: ACETAMINOPHEN INJECTION 100 ML IVPB ONE (19:22)
[2022-09-09 19:37] LABS: INR 1.16 (0.83-1.09); PROTHROMBIN TIME (PATIENT) 13.4 SEC (9.7-13.0)
[2022-09-09 19:38] LABS: ALBUMIN 2.9 g/dl (3.4-5.0); BLOOD UREA NITROGEN 4.6 mg/dL (7-18); CALCIUM 8.6 mg/dL (8.5-10.1)
[2022-09-09 19:42] LABS: CREATININE 1.2 mg/dL (0.55-1.3)
[2022-09-09 19:43] LABS: BILIRUBIN,TOTAL 0.2 mg/dL (0.2-1); TOT PROT 6.7 g/dl (6.4-8.2)
[2022-09-09 19:47] LABS: ACTIVATED PTT 32.2 SECONDS (25.2-36.5)
[2022-09-09] MEDS ORDERED: KETOROLAC TROMETHAMINE 15 MG/ML VIAL IVPUSH ONE (21:29)
[2022-09-09] MEDS ORDERED: KETOROLAC TROMETHAMINE 15 MG/ML VIAL ONE (21:39)
[2022-09-09] MEDS ORDERED: DOCUSATE SODIUM 100 MG CAPSULE (FP) PO PRN (22:33)
[2022-09-09] MEDS ORDERED: ACETAMINOPHEN 1000 MG/100 ML BAG IVPB PRN (22:42)
[2022-09-10] MEDS ORDERED: POTASSIUM CHLORIDE TABS 20 MEQ TABLET.ER (FP) PO ONE (00:36)
[2022-09-10] MEDS ORDERED: KCL 10 MEQ IVPB 10 MEQ/100 ML INFUS.BAG IVPB SCH (00:45)
[2022-09-10] MEDS: QUEtiapine FUMARATE 100 MG TABLET (FP) PO SCH ×3 (01:29→22:42)
[2022-09-10] MEDS: oxyCODONE HCL 5 MG TABLET PO PRN ×2 (02:20→10:22)
[2022-09-10] MEDS: PIPERACILLIN/TAZOB 4.5 GM 4.5 GM in DEXTROSE 5%-WATER 100 ML IVPB SCH ×3 (02:21→17:25)
[2022-09-10] MEDS: GABAPENTIN 400 MG CAPSULE PO SCH ×3 (05:35→22:42)
[2022-09-10] MEDS: INSULIN SLIDING SCALE (NOVOLOG) 1 VIAL SQ SCH ×4 (06:49→22:41)
[2022-09-10] MEDS: CLOPIDOGREL BISULFATE 75 MG TABLET (FP) PO SCH (09:25)
[2022-09-10] MEDS: PANTOPRAZOLE 40 MG TABLET PO SCH (09:25)
[2022-09-10] MEDS: SERTRALINE HCL 50 MG TABLET (FP) PO SCH (09:25)
[2022-09-10] MEDS: LISINOPRIL 5 MG TABLET PO SCH (09:25)
[2022-09-10] MEDS: ASPIRIN COATED 81 MG TABLET.EC PO SCH (09:25)
[2022-09-10] MEDS: metoPROLOL SUCCINATE 25 MG TAB.SR.24H (FP) PO SCH (09:26)
[2022-09-10 09:59] LABS: HEMATOCRIT 29.1 % (32.4-45.2); HEMOGLOBIN 9.2 GM/dL (10.7-15.3); MCHC 31.6 g/dl (32.0-36.0); MEAN CELL VOLUME 82.3 fl (80-96); PLATELET COUNT 217 10^3/uL (134-434); RBC 3.54 M/mm3 (3.60-5.2); RDW 16.7 % (11.6-15.6); WHITE BLOOD COUNT 2.8 K/mm3 (4.0-10.0)
[2022-09-10 10:08] LABS: BLOOD UREA NITROGEN 12.2 mg/dL (7-18); MAGNESIUM 1.8 mg/dL (1.8-2.4)
[2022-09-10 10:11] LABS: PHOSPHOROUS 2.7 mg/dL (2.5-4.9)
[2022-09-10 10:58] LABS: ANISOCYTOSIS 0; HELMET CELLS 0; HOWELL-JOLLY BODIES 0; MACROCYTOSIS 0; OVALOCYTE 0; ROULEAU 0; SICKELED CELLS 0; TARGET CELLS 0; TEAR DROP CELLS 0; TOXIC GRANULATION 0
[2022-09-10] MEDS: ATORVASTATIN CA 80 MG TABLET (FP) PO SCH (22:42)
[2022-09-10] MEDS ORDERED: ACETAMINOPHEN 325 MG TABLET (FP) PO PRN (22:45)
[2022-09-11] MEDS ORDERED: PIPERACILLIN/TAZOB 4.5 GM 4.5 GM in DEXTROSE 5%-WATER 100 ML IVPB SCH (02:00)
[2022-09-11] MEDS: oxyCODONE HCL 5 MG TABLET PO PRN ×2 (03:19→16:20)
[2022-09-11] MEDS: GABAPENTIN 400 MG CAPSULE PO SCH ×3 (05:40→21:37)
[2022-09-11] MEDS: INSULIN SLIDING SCALE (NOVOLOG) 1 VIAL SQ SCH ×4 (06:19→21:38)
[2022-09-11] MEDS: LISINOPRIL 5 MG TABLET PO SCH (09:51)
[2022-09-11] MEDS: SERTRALINE HCL 50 MG TABLET (FP) PO SCH (09:52)
[2022-09-11] MEDS: ASPIRIN COATED 81 MG TABLET.EC PO SCH (09:52)
[2022-09-11] MEDS: metoPROLOL SUCCINATE 25 MG TAB.SR.24H (FP) PO SCH (09:52)
[2022-09-11] MEDS: CLOPIDOGREL BISULFATE 75 MG TABLET (FP) PO SCH (09:52)
[2022-09-11] MEDS: PANTOPRAZOLE 40 MG TABLET PO SCH (09:52)
[2022-09-11] MEDS: ENOXAPARIN NA (PORCINE) 40 MG/0.4 ML DISP.SYRIN SQ SCH (09:52)
[2022-09-11] MEDS: QUEtiapine FUMARATE 100 MG TABLET (FP) PO SCH ×2 (09:53→21:37)
[2022-09-11 10:01] LABS: HEMATOCRIT 30.2 % (32.4-45.2); HEMOGLOBIN 9.8 GM/dL (10.7-15.3); MCH 26.3 pg (25.7-33.7); MCHC 32.4 g/dl (32.0-36.0); MEAN PLT VOLUME 8.4 fl (7.5-11.1); PLATELET COUNT 236 10^3/uL (134-434); RBC 3.72 M/mm3 (3.60-5.2); RDW 17.1 % (11.6-15.6); WHITE BLOOD COUNT 2.3 K/mm3 (4.0-10.0)
[2022-09-11] MEDS ORDERED: INSULIN (NOVOLOG) ASPART 100 UNITS/ML 10ML VIAL ONE (10:34)
[2022-09-11 10:54] LABS: ANISOCYTOSIS 0; HELMET CELLS 0; HOWELL-JOLLY BODIES 0; MACROCYTOSIS 0; OVALOCYTE 0; ROULEAU 0; SICKELED CELLS 0; TARGET CELLS 0; TEAR DROP CELLS 0; TOXIC GRANULATION 0
[2022-09-11 11:16] LABS: CALCIUM 8.9 mg/dL (8.5-10.1); MAGNESIUM 1.9 mg/dL (1.8-2.4); PHOSPHOROUS 2.5 mg/dL (2.5-4.9)
[2022-09-11] MEDS: PIPERACILLIN/TAZOB 3.375 GM 3.375 GM in DEXTROSE 5%-WATER - 50 ML IVPB SCH ×2 (12:12→17:04)
[2022-09-11] MEDS: ATORVASTATIN CA 80 MG TABLET (FP) PO SCH (21:37)
[2022-09-12] MEDS: PIPERACILLIN/TAZOB 3.375 GM 3.375 GM in DEXTROSE 5%-WATER - 50 ML IVPB SCH ×3 (01:58→17:21)
[2022-09-12] MEDS: oxyCODONE HCL 5 MG TABLET PO PRN ×3 (02:28→17:48)
[2022-09-12] MEDS: GABAPENTIN 400 MG CAPSULE PO SCH ×3 (05:51→21:09)
[2022-09-12] MEDS: INSULIN SLIDING SCALE (NOVOLOG) 1 VIAL SQ SCH ×4 (06:38→21:09)
[2022-09-12 08:39] LABS: HEMOGLOBIN 9.6 GM/dL (10.7-15.3); MEAN CELL VOLUME 81.2 fl (80-96); MEAN PLT VOLUME 8.4 fl (7.5-11.1); PLATELET COUNT 251 10^3/uL (134-434); RDW 16.7 % (11.6-15.6); WHITE BLOOD COUNT 3.3 K/mm3 (4.0-10.0)
[2022-09-12 08:44] LABS: INR 1.03 (0.83-1.09); PROTHROMBIN TIME (PATIENT) 11.9 SEC (9.7-13.0)
[2022-09-12 08:57] LABS: BLOOD UREA NITROGEN 9.9 mg/dL (7-18)
[2022-09-12 09:00] LABS: CREATININE 1.2 mg/dL (0.55-1.3)
[2022-09-12] MEDS: ENOXAPARIN NA (PORCINE) 40 MG/0.4 ML DISP.SYRIN SQ SCH (10:00)
[2022-09-12] MEDS: CLOPIDOGREL BISULFATE 75 MG TABLET (FP) PO SCH (10:04)
[2022-09-12] MEDS: LACTOBACILLUS ACIDOPHILUS 1 TABLET PO SCH (10:04)
[2022-09-12] MEDS: ASPIRIN COATED 81 MG TABLET.EC PO SCH (10:04)
[2022-09-12] MEDS: SERTRALINE HCL 50 MG TABLET (FP) PO SCH (10:05)
[2022-09-12] MEDS: LISINOPRIL 5 MG TABLET PO SCH (10:16)
[2022-09-12] MEDS: metoPROLOL SUCCINATE 25 MG TAB.SR.24H (FP) PO SCH (10:16)
[2022-09-12] MEDS: PANTOPRAZOLE 40 MG TABLET PO SCH (10:17)
[2022-09-12] MEDS: QUEtiapine FUMARATE 100 MG TABLET (FP) PO SCH ×2 (10:17→21:09)
[2022-09-12 10:23] LABS: ANISOCYTOSIS 0; MACROCYTOSIS 0
[2022-09-12] MEDS: AMMONIUM LACTATE 12% LOTION 225 GM BOTTLE TP SCH (15:26)
[2022-09-12] MEDS ORDERED: INSULIN (NOVOLOG) ASPART 100 UNITS/ML 10ML VIAL ONE (20:57)
[2022-09-12] MEDS: ATORVASTATIN CA 80 MG TABLET (FP) PO SCH (21:09)
[2022-09-13] MEDS: PIPERACILLIN/TAZOB 3.375 GM 3.375 GM in DEXTROSE 5%-WATER - 50 ML IVPB SCH ×2 (02:54→10:31)
[2022-09-13] MEDS ORDERED: oxyCODONE HCL 5 MG TABLET PO PRN (03:09)
[2022-09-13] MEDS: GABAPENTIN 400 MG CAPSULE PO SCH ×2 (06:15→13:23)
[2022-09-13] MEDS: INSULIN SLIDING SCALE (NOVOLOG) 1 VIAL SQ SCH ×2 (06:19→11:42)
[2022-09-13] MEDS: QUEtiapine FUMARATE 100 MG TABLET (FP) PO SCH (10:30)
[2022-09-13] MEDS: LISINOPRIL 5 MG TABLET PO SCH (10:30)
[2022-09-13] MEDS: SERTRALINE HCL 50 MG TABLET (FP) PO SCH (10:30)
[2022-09-13] MEDS: ASPIRIN COATED 81 MG TABLET.EC PO SCH (10:30)
[2022-09-13] MEDS: metoPROLOL SUCCINATE 25 MG TAB.SR.24H (FP) PO SCH (10:30)
[2022-09-13] MEDS: PANTOPRAZOLE 40 MG TABLET PO SCH (10:31)
[2022-09-13] MEDS: CLOPIDOGREL BISULFATE 75 MG TABLET (FP) PO SCH (10:31)
[2022-09-13] MEDS: ENOXAPARIN NA (PORCINE) 40 MG/0.4 ML DISP.SYRIN SQ SCH (10:31)
[2022-09-13] MEDS: LACTOBACILLUS ACIDOPHILUS 1 TABLET PO SCH (10:31)
[2022-09-13] MEDS: AMMONIUM LACTATE 12% LOTION 225 GM BOTTLE TP SCH (11:42)
[2022-09-13 12:08] VITALS: BP 147/94; PULSE 77; RESP 20; TEMP 98.3
[2022-09-13 12:44] LABS: BASO % 0.2 % (0-2.0); HEMATOCRIT 28.1 % (32.4-45.2); HEMOGLOBIN 8.9 GM/dL (10.7-15.3); LYMPH % 31.3 % (8-40); MCH 25.5 pg (25.7-33.7); MCHC 31.7 g/dl (32.0-36.0); MEAN CELL VOLUME 80.7 fl (80-96); MEAN PLT VOLUME 8.7 fl (7.5-11.1); MONO % 15.5 % (3.8-10.2); PLATELET COUNT 263 10^3/uL (134-434); RBC 3.48 M/mm3 (3.60-5.2); RDW 16.9 % (11.6-15.6); WHITE BLOOD COUNT 3.7 K/mm3 (4.0-10.0)
[2022-09-13 12:59] VITALS: BMI 22.6
[2022-09-13 13:02] LABS: CALCIUM 8.9 mg/dL (8.5-10.1)
[2022-09-13 13:03] LABS: ALBUMIN 2.6 g/dl (3.4-5.0); BLOOD UREA NITROGEN 7.4 mg/dL (7-18); MAGNESIUM 1.9 mg/dL (1.8-2.4)
[2022-09-13 13:07] LABS: BILIRUBIN,TOTAL 0.2 mg/dL (0.2-1); TOT PROT 6.4 g/dl (6.4-8.2)
[2022-09-14] MEDS ORDERED: MULTIVITAMINS THER W-MINERALS COMBO TABLET (FP) PO SCH (10:00)
[2022-09-14] MEDS ORDERED: ASCORBIC ACID 250 MG TABLET (FP) PO SCH (10:00)
== END 2022-09-13 15:58 | disposition home or self-care (01) ==
LOC: JER 14:35 → JERBED 17:57 → J6S 09-10 00:39
PROVIDERS: ADMIT Internal Medicine
PROC: 0JHD3XZ Insertion of Tunneled Vascular Access Device into Right Upper Arm Subcutaneous Tissue and Fascia, Percutaneous Approach (ICD-10-PCS; principal; 2022-09-09)
PROC: 3E033NZ Introduction of Analgesics, Hypnotics, Sedatives into Peripheral Vein, Percutaneous Approach (ICD-10-PCS; 2022-09-09)
PROC: 3E023GC Introduction of Other Therapeutic Substance into Muscle, Percutaneous Approach (ICD-10-PCS; 2022-09-09)
PROC: 3E013VG Introduction of Insulin into Subcutaneous Tissue, Percutaneous Approach (ICD-10-PCS; 2022-09-09)
PROC: 3E0333Z Introduction of Anti-inflammatory into Peripheral Vein, Percutaneous Approach (ICD-10-PCS; 2022-09-09)
PROC: 3E033GC Introduction of Other Therapeutic Substance into Peripheral Vein, Percutaneous Approach (ICD-10-PCS; 2022-09-09)
DX: T82.898A Other specified complication of vascular prosthetic devices, implants and grafts, initial encounter (principal); E78.5 Hyperlipidemia, unspecified; I11.0 Hypertensive heart disease with heart failure; I25.10 Atherosclerotic heart disease of native coronary artery without angina pectoris; I73.9 Peripheral vascular disease, unspecified; M86.9 Osteomyelitis, unspecified; Z88.1 Allergy status to other antibiotic agents; Z79.4 Long term (current) use of insulin; F41.9 Anxiety disorder, unspecified; Z95.1 Presence of aortocoronary bypass graft; E11.43 Type 2 diabetes mellitus with diabetic autonomic (poly)neuropathy; Y82.8 Other medical devices associated with adverse incidents; K31.84 Gastroparesis; Z85.41 Personal history of malignant neoplasm of cervix uteri; Z86.73 Personal history of transient ischemic attack (TIA), and cerebral infarction without residual deficits; Z87.891 Personal history of nicotine dependence
CPT/HCPCS: 0241U-QW; 36415; 36569; 80048; 80053; 82962; 83735; 84100; 85025; 85610; 85651; 85730; 86140; 86850; 86870; 86900; 86901; 86902; 96365; 96366; 96367; 96372; 96375; 96376; 99285-25; G0378

== ENCOUNTER 2022-10-16 06:17 | Inpatient (IN) | payer MEDICARE ==
[2022-10-16] MEDS ORDERED: HYDROmorphone HCL CARPU-JECT 2 MG/1 ML DISP.SYRIN IM ONE (06:31)
[2022-10-16] MEDS ORDERED: HYDROmorphone HCl 2 MG/ML VIAL ONE (06:48)
[2022-10-16 08:54] LABS: BASO % 0.6 % (0-2.0); HEMATOCRIT 26.8 % (32.4-45.2); HEMOGLOBIN 8.6 GM/dL (10.7-15.3); INR 1.15 (0.83-1.09); MCH 25.3 pg (25.7-33.7); MCHC 32.2 g/dl (32.0-36.0); MEAN CELL VOLUME 78.5 fl (80-96); MEAN PLT VOLUME 8.2 fl (7.5-11.1); MONO % 9.3 % (3.8-10.2); NEUT % 80.1 % (42.8-82.8); PLATELET COUNT 430 10^3/uL (134-434); PROTHROMBIN TIME (PATIENT) 13.2 SEC (9.7-13.0); RBC 3.42 M/mm3 (3.60-5.2); RDW 19.9 % (11.6-15.6); WHITE BLOOD COUNT 11.5 K/mm3 (4.0-10.0)
[2022-10-16 08:57] LABS: ACTIVATED PTT 30.9 SECONDS (25.2-36.5)
[2022-10-16 09:00] LABS: ALBUMIN 3.3 g/dl (3.4-5.0); BLOOD UREA NITROGEN 9.3 mg/dL (7-18); CALCIUM 8.8 mg/dL (8.5-10.1)
[2022-10-16 09:05] LABS: BILIRUBIN,TOTAL 0.4 mg/dL (0.2-1); TOT PROT 7.3 g/dl (6.4-8.2)
[2022-10-16] MEDS ORDERED: KETOROLAC TROMETHAMINE 15 MG/ML VIAL IVPUSH ONE (09:24)
[2022-10-16] MEDS ORDERED: KETOROLAC TROMETHAMINE 15 MG/ML VIAL ONE (09:26)
[2022-10-16 09:37] LABS: ERYTHROCYTE SEDIMENTATION RATE 67 mm/hr (0-20)
[2022-10-16] MEDS ORDERED: VANCOMYCIN 1 GM in D5W (PRE-DOCKED) 1,000 MG/250 ML IVPB ONE (10:01)
[2022-10-16] MEDS ORDERED: VANCOMYCIN/WATER FOR INJ (PEG) 1,000 MG/200 ML BAG IVPB ONE (10:14)
[2022-10-16] MEDS ORDERED: POTASSIUM CHLORIDE ORAL LIQUID 20 MEQ/15 ML PO ONE (15:30)
[2022-10-16] MEDS: GABAPENTIN 400 MG CAPSULE PO SCH ×2 (15:48→21:36)
[2022-10-16] MEDS: INSULIN SLIDING SCALE (NOVOLOG) 1 VIAL SQ SCH (16:40)
[2022-10-16] MEDS: clonazePAM 0.5 MG TABLET PO PRN (17:56)
[2022-10-16] MEDS: QUEtiapine FUMARATE 100 MG TABLET (FP) PO SCH (21:35)
[2022-10-16] MEDS: ATORVASTATIN CA 80 MG TABLET (FP) PO SCH (21:36)
[2022-10-16] MEDS: MEROPENEM 1 GM in DEXTROSE 5%-WATER 100 ML IVPB SCH (21:37)
[2022-10-16] MEDS ORDERED: QUEtiapine FUMARATE 100 MG TABLET (FP) PO SCH (22:00)
[2022-10-16] MEDS ORDERED: MELATONIN 5 MG TABLETS PO ONE (22:03)
[2022-10-16] MEDS: CLINDAMYCIN 600MG PREMIX IVPB 600 MG/50 ML BAG IVPB SCH (23:31)
[2022-10-17] MEDS: VANCOMYCIN/WATER FOR INJ (PEG) 1,000 MG/200 ML BAG IVPB SCH ×3 (00:34→22:50)
[2022-10-17] MEDS: MEROPENEM 1 GM in DEXTROSE 5%-WATER 100 ML IVPB SCH ×3 (05:31→20:09)
[2022-10-17] MEDS: GABAPENTIN 400 MG CAPSULE PO SCH ×4 (06:46→21:28)
[2022-10-17] MEDS: INSULIN SLIDING SCALE (NOVOLOG) 1 VIAL SQ SCH ×4 (07:04→21:29)
[2022-10-17] MEDS: CLINDAMYCIN 600MG PREMIX IVPB 600 MG/50 ML BAG IVPB SCH ×3 (07:04→21:21)
[2022-10-17] MEDS: INSULIN (LEVEMIR) 100 UNITS/ML UNITS SQ SCH (07:04)
[2022-10-17 10:37] LABS: BASO % 0.5 % (0-2.0); EOS % 3.4 % (0-4.5); HEMOGLOBIN 8.8 GM/dL (10.7-15.3); LYMPH % 8.3 % (8-40); MCH 25.6 pg (25.7-33.7); MCHC 32.6 g/dl (32.0-36.0); MEAN CELL VOLUME 78.5 fl (80-96); MEAN PLT VOLUME 7.8 fl (7.5-11.1); NEUT % 76.8 % (42.8-82.8); PLATELET COUNT 373 10^3/uL (134-434); RBC 3.44 M/mm3 (3.60-5.2); RDW 19.9 % (11.6-15.6); WHITE BLOOD COUNT 7.5 K/mm3 (4.0-10.0)
[2022-10-17] MEDS: HYDROmorphone HCl 2 MG/ML VIAL IVPB PRN ×3 (10:53→22:23)
[2022-10-17] MEDS: CLOPIDOGREL BISULFATE 75 MG TABLET (FP) PO SCH (11:03)
[2022-10-17] MEDS: ASPIRIN COATED 81 MG TABLET.EC PO SCH (11:09)
[2022-10-17] MEDS: BACITRACIN ZINC 15 GM TUBE TOPICAL OINTMENT TP SCH (11:10)
[2022-10-17] MEDS: PANTOPRAZOLE 40 MG TABLET PO SCH (11:10)
[2022-10-17] MEDS: metoPROLOL SUCCINATE 25 MG TAB.SR.24H (FP) PO SCH (11:27)
[2022-10-17] MEDS: LISINOPRIL 5 MG TABLET PO SCH (11:27)
[2022-10-17] MEDS: QUEtiapine FUMARATE 100 MG TABLET (FP) PO SCH (11:34)
[2022-10-17 11:39] LABS: CALCIUM 8.9 mg/dL (8.5-10.1)
[2022-10-17 11:40] LABS: ALBUMIN 2.7 g/dl (3.4-5.0); BLOOD UREA NITROGEN 9.6 mg/dL (7-18)
[2022-10-17 11:44] LABS: TOT PROT 6.5 g/dl (6.4-8.2)
[2022-10-17 11:45] LABS: BILIRUBIN,TOTAL 0.3 mg/dL (0.2-1)
[2022-10-17] MEDS: clonazePAM 0.5 MG TABLET PO PRN ×2 (13:53→23:16)
[2022-10-17] MEDS ORDERED: POTASSIUM CHLORIDE ORAL LIQUID 20 MEQ/15 ML PO ONE (16:30)
[2022-10-17] MEDS: ATORVASTATIN CA 80 MG TABLET (FP) PO SCH (21:28)
[2022-10-17] MEDS: OLANZapine 10 MG TABLET PO SCH (21:28)
[2022-10-18] MEDS: HYDROmorphone HCl 2 MG/ML VIAL IVPB PRN ×2 (03:01→08:52)
[2022-10-18] MEDS: MEROPENEM 1 GM in DEXTROSE 5%-WATER 100 ML IVPB SCH ×4 (04:51→20:27)
[2022-10-18] MEDS: CLINDAMYCIN 600MG PREMIX IVPB 600 MG/50 ML BAG IVPB SCH ×2 (05:41→15:30)
[2022-10-18] MEDS: GABAPENTIN 400 MG CAPSULE PO SCH ×2 (05:49→21:26)
[2022-10-18] MEDS: INSULIN (LEVEMIR) 100 UNITS/ML UNITS SQ SCH (06:29)
[2022-10-18] MEDS: INSULIN SLIDING SCALE (NOVOLOG) 1 VIAL SQ SCH ×4 (06:30→22:26)
[2022-10-18] MEDS: clonazePAM 0.5 MG TABLET PO PRN (09:50)
[2022-10-18] MEDS: PANTOPRAZOLE 40 MG TABLET PO SCH (09:50)
[2022-10-18] MEDS: CLOPIDOGREL BISULFATE 75 MG TABLET (FP) PO SCH (09:50)
[2022-10-18] MEDS: ASPIRIN COATED 81 MG TABLET.EC PO SCH (09:50)
[2022-10-18] MEDS: LISINOPRIL 5 MG TABLET PO SCH (09:50)
[2022-10-18] MEDS: metoPROLOL SUCCINATE 25 MG TAB.SR.24H (FP) PO SCH (09:50)
[2022-10-18] MEDS: OLANZapine 10 MG TABLET PO SCH ×2 (09:50→21:26)
[2022-10-18] MEDS: BACITRACIN ZINC 15 GM TUBE TOPICAL OINTMENT TP SCH (09:51)
[2022-10-18] MEDS ORDERED: INSULIN SLIDING SCALE (NOVOLOG) 1 VIAL SQ ONE (11:55)
[2022-10-18 12:37] LABS: BASO % 0.6 % (0-2.0); EOS % 3.6 % (0-4.5); HEMATOCRIT 27.7 % (32.4-45.2); HEMOGLOBIN 8.9 GM/dL (10.7-15.3); LYMPH % 8.9 % (8-40); MCH 25.2 pg (25.7-33.7); MCHC 32.3 g/dl (32.0-36.0); MEAN CELL VOLUME 78.2 fl (80-96); MONO % 10.2 % (3.8-10.2); NEUT % 76.7 % (42.8-82.8); PLATELET COUNT 405 10^3/uL (134-434); RBC 3.54 M/mm3 (3.60-5.2); RDW 19.4 % (11.6-15.6); WHITE BLOOD COUNT 8.2 K/mm3 (4.0-10.0)
[2022-10-18 13:13] LABS: ALBUMIN 2.7 g/dl (3.4-5.0); BLOOD UREA NITROGEN 11.8 mg/dL (7-18)
[2022-10-18 13:16] LABS: CREATININE 1.2 mg/dL (0.55-1.3); PHOSPHOROUS 2.9 mg/dL (2.5-4.9)
[2022-10-18 13:18] LABS: BILIRUBIN,TOTAL 0.3 mg/dL (0.2-1); TOT PROT 6.6 g/dl (6.4-8.2)
[2022-10-18] MEDS: SERTRALINE HCL 50 MG TABLET (FP) PO SCH (13:39)
[2022-10-18] MEDS ORDERED: GABAPENTIN 400 MG CAPSULE PO SCH (14:00)
[2022-10-18] MEDS: VANCOMYCIN/WATER FOR INJ (PEG) 1,000 MG/200 ML BAG IVPB SCH ×2 (15:32→21:26)
[2022-10-18] MEDS: ACETAMINOPHEN 1000 MG/100 ML BAG IVPB PRN (18:15)
[2022-10-18] MEDS: ATORVASTATIN CA 80 MG TABLET (FP) PO SCH (21:26)
[2022-10-19] MEDS ORDERED: MELATONIN 5 MG TABLETS PO ONE (01:45)
[2022-10-19] MEDS: ACETAMINOPHEN 1000 MG/100 ML BAG IVPB PRN ×2 (01:45→09:57)
[2022-10-19] MEDS: GABAPENTIN 400 MG CAPSULE PO SCH ×3 (05:27→21:41)
[2022-10-19] MEDS: MEROPENEM 1 GM in DEXTROSE 5%-WATER 100 ML IVPB SCH ×5 (05:27→21:55)
[2022-10-19] MEDS: INSULIN SLIDING SCALE (NOVOLOG) 1 VIAL SQ SCH ×4 (06:17→21:41)
[2022-10-19] MEDS: INSULIN (LEVEMIR) 100 UNITS/ML UNITS SQ SCH (06:18)
[2022-10-19] MEDS ORDERED: POTASSIUM CHLORIDE ORAL LIQUID 20 MEQ/15 ML PO ONE (06:49)
[2022-10-19] MEDS: SERTRALINE HCL 50 MG TABLET (FP) PO SCH (09:53)
[2022-10-19] MEDS: CLOPIDOGREL BISULFATE 75 MG TABLET (FP) PO SCH (09:54)
[2022-10-19] MEDS: metoPROLOL SUCCINATE 25 MG TAB.SR.24H (FP) PO SCH (09:54)
[2022-10-19] MEDS: OLANZapine 10 MG TABLET PO SCH ×2 (09:54→21:41)
[2022-10-19] MEDS: PANTOPRAZOLE 40 MG TABLET PO SCH (09:54)
[2022-10-19] MEDS: ASPIRIN COATED 81 MG TABLET.EC PO SCH (09:55)
[2022-10-19] MEDS: LISINOPRIL 5 MG TABLET PO SCH (09:55)
[2022-10-19] MEDS: BACITRACIN ZINC 15 GM TUBE TOPICAL OINTMENT TP SCH (09:56)
[2022-10-19] MEDS: ENOXAPARIN NA (PORCINE) 40 MG/0.4 ML DISP.SYRIN SQ SCH (09:56)
[2022-10-19] MEDS: VANCOMYCIN/WATER FOR INJ (PEG) 1,000 MG/200 ML BAG IVPB SCH (12:18)
[2022-10-19] MEDS: traMADol HCL 50 MG TABLET PO PRN ×2 (14:39→20:43)
[2022-10-19] MEDS ORDERED: INSULIN (NOVOLOG) ASPART 100 UNITS/ML 10ML VIAL ONE (21:29)
[2022-10-19] MEDS: ATORVASTATIN CA 80 MG TABLET (FP) PO SCH (21:40)
[2022-10-20] MEDS: traMADol HCL 50 MG TABLET PO PRN ×3 (02:27→19:05)
[2022-10-20] MEDS ORDERED: MELATONIN 5 MG TABLETS PO ONE (02:35)
[2022-10-20] MEDS: MEROPENEM 1 GM in DEXTROSE 5%-WATER 100 ML IVPB SCH ×3 (05:06→16:26)
[2022-10-20] MEDS: INSULIN SLIDING SCALE (NOVOLOG) 1 VIAL SQ SCH ×4 (06:50→22:35)
[2022-10-20] MEDS: INSULIN (LEVEMIR) 100 UNITS/ML UNITS SQ SCH (08:44)
[2022-10-20] MEDS: GABAPENTIN 400 MG CAPSULE PO SCH ×3 (08:45→22:33)
[2022-10-20] MEDS: ENOXAPARIN NA (PORCINE) 40 MG/0.4 ML DISP.SYRIN SQ SCH (10:17)
[2022-10-20] MEDS: metoPROLOL SUCCINATE 25 MG TAB.SR.24H (FP) PO SCH (10:17)
[2022-10-20] MEDS: PANTOPRAZOLE 40 MG TABLET PO SCH (10:17)
[2022-10-20] MEDS: SERTRALINE HCL 50 MG TABLET (FP) PO SCH (10:17)
[2022-10-20] MEDS: CLOPIDOGREL BISULFATE 75 MG TABLET (FP) PO SCH (10:18)
[2022-10-20] MEDS: LISINOPRIL 5 MG TABLET PO SCH (10:18)
[2022-10-20] MEDS: BACITRACIN ZINC 15 GM TUBE TOPICAL OINTMENT TP SCH (10:19)
[2022-10-20] MEDS: ASPIRIN COATED 81 MG TABLET.EC PO SCH (10:19)
[2022-10-20] MEDS: OLANZapine 10 MG TABLET PO SCH ×2 (10:22→22:33)
[2022-10-20 13:18] LABS: HEMATOCRIT 28.5 % (32.4-45.2); HEMOGLOBIN 9.2 GM/dL (10.7-15.3); MCH 25.1 pg (25.7-33.7); MCHC 32.3 g/dl (32.0-36.0); MEAN CELL VOLUME 77.6 fl (80-96); PLATELET COUNT 458 10^3/uL (134-434); RBC 3.67 M/mm3 (3.60-5.2); RDW 19.7 % (11.6-15.6); WHITE BLOOD COUNT 10.4 K/mm3 (4.0-10.0)
[2022-10-20 13:47] LABS: BLOOD UREA NITROGEN 11.5 mg/dL (7-18)
[2022-10-20 13:50] LABS: CREATININE 0.9 mg/dL (0.55-1.3)
[2022-10-20] MEDS: ATORVASTATIN CA 80 MG TABLET (FP) PO SCH (22:33)
[2022-10-21] MEDS: MEROPENEM 1 GM in DEXTROSE 5%-WATER 100 ML IVPB SCH ×4 (00:51→22:53)
[2022-10-21] MEDS ORDERED: ACETAMINOPHEN 1000 MG/100 ML BAG IVPB ONE ×3 (00:57→21:01)
[2022-10-21] MEDS ORDERED: MELATONIN 5 MG TABLETS PO SCH ×2 (01:00→22:00)
[2022-10-21] MEDS: INSULIN SLIDING SCALE (NOVOLOG) 1 VIAL SQ SCH ×2 (07:00→14:51)
[2022-10-21] MEDS: INSULIN (LEVEMIR) 100 UNITS/ML UNITS SQ SCH (07:00)
[2022-10-21] MEDS: GABAPENTIN 400 MG CAPSULE PO SCH ×3 (07:10→22:05)
[2022-10-21 09:36] LABS: CALCIUM 8.6 mg/dL (8.5-10.1)
[2022-10-21 09:37] LABS: ALBUMIN 2.2 g/dl (3.4-5.0); BLOOD UREA NITROGEN 10.1 mg/dL (7-18); MAGNESIUM 1.9 mg/dL (1.8-2.4)
[2022-10-21 09:39] LABS: TOT PROT 5.9 g/dl (6.4-8.2)
[2022-10-21 09:40] LABS: BILIRUBIN,TOTAL 0.2 mg/dL (0.2-1); CREATININE 0.8 mg/dL (0.55-1.3); PHOSPHOROUS 3.2 mg/dL (2.5-4.9)
[2022-10-21] MEDS: ENOXAPARIN NA (PORCINE) 40 MG/0.4 ML DISP.SYRIN SQ SCH (10:47)
[2022-10-21] MEDS: SERTRALINE HCL 50 MG TABLET (FP) PO SCH (10:47)
[2022-10-21] MEDS: ASPIRIN COATED 81 MG TABLET.EC PO SCH (10:47)
[2022-10-21] MEDS: PANTOPRAZOLE 40 MG TABLET PO SCH (10:48)
[2022-10-21] MEDS: CLOPIDOGREL BISULFATE 75 MG TABLET (FP) PO SCH (10:48)
[2022-10-21] MEDS: OLANZapine 10 MG TABLET PO SCH ×2 (10:48→22:05)
[2022-10-21] MEDS: metoPROLOL SUCCINATE 25 MG TAB.SR.24H (FP) PO SCH (10:48)
[2022-10-21] MEDS: LISINOPRIL 5 MG TABLET PO SCH (10:48)
[2022-10-21] MEDS: traMADol HCL 50 MG TABLET PO PRN (10:49)
[2022-10-21] MEDS: BACITRACIN ZINC 15 GM TUBE TOPICAL OINTMENT TP SCH (10:57)
[2022-10-21] MEDS ORDERED: HEPARIN NA (PORCINE) 5,000 UNITS/ML 1ML VIAL ONE (13:12)
[2022-10-21] MEDS ORDERED: LIDOCAINE HCL 1%, 10 MG/ML (20ML VIAL) ONE (13:12)
[2022-10-21 13:33] LABS: BASO % 0.3 % (0-2.0); EOS % 3.1 % (0-4.5); HEMATOCRIT 27.7 % (32.4-45.2); LYMPH % 11.4 % (8-40); MCH 24.8 pg (25.7-33.7); MCHC 32.4 g/dl (32.0-36.0); MEAN CELL VOLUME 76.5 fl (80-96); MEAN PLT VOLUME 7.9 fl (7.5-11.1); MONO % 9.4 % (3.8-10.2); NEUT % 75.8 % (42.8-82.8); PLATELET COUNT 491 10^3/uL (134-434); RBC 3.62 M/mm3 (3.60-5.2); RDW 19.7 % (11.6-15.6); WHITE BLOOD COUNT 10.2 K/mm3 (4.0-10.0)
[2022-10-21 13:41] LABS: INR 1.24 (0.83-1.09); PROTHROMBIN TIME (PATIENT) 14.3 SEC (9.7-13.0)
[2022-10-21 13:44] LABS: ACTIVATED PTT 37.8 SECONDS (25.2-36.5)
[2022-10-21] MEDS ORDERED: PROPOFOL 40 ML ONE (14:26)
[2022-10-21] MEDS ORDERED: MIDAZOLAM HCL 2 MG/2 ML SINGLE DOSE VIAL ONE ×2 (14:26→16:22)
[2022-10-21] MEDS ORDERED: CLINDAMYCIN 900 MG PREMIX BAG IVPB ONE (16:00)
[2022-10-21] MEDS ORDERED: LIDOCAINE HCL 1%, 10 MG/ML (20ML VIAL) NR ONE ×3 (16:10)
[2022-10-21] MEDS ORDERED: HEPARIN NA (PORCINE) 5,000 UNITS/ML 1ML VIAL SQ ONE ×2 (16:15)
[2022-10-21 16:39] VITALS: BMI 24.7
[2022-10-21] MEDS ORDERED: DEXAMETHASONE SOD PHOSPHATE 4 MG/1 ML VIAL ONE (16:41)
[2022-10-21] MEDS ORDERED: ONDANSETRON 4 MG/2 ML VIAL ONE (16:41)
[2022-10-21] MEDS ORDERED: ONDANSETRON 4 MG/2 ML VIAL IVPUSH PRN (16:53)
[2022-10-21] MEDS ORDERED: SODIUM CHLORIDE 1,000 ML IV SCH (17:00)
[2022-10-21] MEDS ORDERED: traMADol HCL 50 MG TABLET PO PRN (17:23)
[2022-10-21 19:55] VITALS: RESP 18
[2022-10-21] MEDS ORDERED: INSULIN SLIDING SCALE (NOVOLOG) 1 VIAL SQ SCH (22:00)
[2022-10-21] MEDS ORDERED: ATORVASTATIN CA 80 MG TABLET (FP) PO SCH (22:00)
[2022-10-22] MEDS: MEROPENEM 1 GM in DEXTROSE 5%-WATER 100 ML IVPB SCH ×2 (02:13→10:35)
[2022-10-22 05:48] VITALS: BP 112/62; PULSE 64; TEMP 97.7
[2022-10-22] MEDS: GABAPENTIN 400 MG CAPSULE PO SCH (06:24)
[2022-10-22] MEDS: INSULIN SLIDING SCALE (NOVOLOG) 1 VIAL SQ SCH ×2 (06:27→12:06)
[2022-10-22] MEDS ORDERED: INSULIN (LEVEMIR) 100 UNITS/ML UNITS SQ SCH (07:00)
[2022-10-22] MEDS ORDERED: INSULIN (NOVOLOG) ASPART 100 UNITS/ML 10ML VIAL ONE (07:08)
[2022-10-22] MEDS ORDERED: LISINOPRIL 5 MG TABLET PO SCH (10:00)
[2022-10-22] MEDS ORDERED: BACITRACIN ZINC 15 GM TUBE TOPICAL OINTMENT TP SCH (10:00)
[2022-10-22] MEDS ORDERED: metoPROLOL SUCCINATE 25 MG TAB.SR.24H (FP) PO SCH (10:00)
[2022-10-22] MEDS ORDERED: CLOPIDOGREL BISULFATE 75 MG TABLET (FP) PO SCH (10:00)
[2022-10-22] MEDS ORDERED: PANTOPRAZOLE 40 MG TABLET PO SCH (10:00)
[2022-10-22] MEDS ORDERED: SERTRALINE HCL 50 MG TABLET (FP) PO SCH (10:00)
[2022-10-22] MEDS ORDERED: ASPIRIN COATED 81 MG TABLET.EC PO SCH (10:00)
[2022-10-22] MEDS ORDERED: ENOXAPARIN NA (PORCINE) 40 MG/0.4 ML DISP.SYRIN SQ SCH (10:00)
[2022-10-22 10:33] LABS: BASO % 0.2 % (0-2.0); EOS % 0.1 % (0-4.5); HEMATOCRIT 27.5 % (32.4-45.2); HEMOGLOBIN 9.2 GM/dL (10.7-15.3); LYMPH % 9.5 % (8-40); MCH 25.5 pg (25.7-33.7); MCHC 33.3 g/dl (32.0-36.0); MEAN CELL VOLUME 76.6 fl (80-96); MEAN PLT VOLUME 7.6 fl (7.5-11.1); NEUT % 81.2 % (42.8-82.8); PLATELET COUNT 545 10^3/uL (134-434); RBC 3.59 M/mm3 (3.60-5.2); RDW 19.5 % (11.6-15.6); WHITE BLOOD COUNT 12.6 K/mm3 (4.0-10.0)
[2022-10-22] MEDS: OLANZapine 10 MG TABLET PO SCH (10:36)
[2022-10-22 11:10] LABS: CALCIUM 9.4 mg/dL (8.5-10.1)
[2022-10-22 11:11] LABS: BLOOD UREA NITROGEN 12.5 mg/dL (7-18)
[2022-10-22 11:14] LABS: CREATININE 0.9 mg/dL (0.55-1.3)
== END 2022-10-22 12:33 | disposition left against medical advice (07) | DRG 982 ==
LOC: JER 06:17 → JERBED 10:37 → J5S 14:29 → J8W 10-18 18:07 → J6S 10-21 15:17
PROVIDERS: ADMIT Internal Medicine; ATTEND Internal Medicine
PROC: B41DZZZ Fluoroscopy of Aorta and Bilateral Lower Extremity Arteries (ICD-10-PCS; 2022-10-21)
PROC: B40FYZZ Plain Radiography of Right Lower Extremity Arteries using Other Contrast (ICD-10-PCS; 2022-10-21)
PROC: 047P3ZZ Dilation of Right Anterior Tibial Artery, Percutaneous Approach (ICD-10-PCS; principal; 2022-10-21 14:00)
DX: E11.69 Type 2 diabetes mellitus with other specified complication (principal); I50.32 Chronic diastolic (congestive) heart failure; I69.351 Hemiplegia and hemiparesis following cerebral infarction affecting right dominant side; M86.8X7 Other osteomyelitis, ankle and foot; R45.851 Suicidal ideations; I25.10 Atherosclerotic heart disease of native coronary artery without angina pectoris; Z95.1 Presence of aortocoronary bypass graft; E11.621 Type 2 diabetes mellitus with foot ulcer; L97.519 Non-pressure chronic ulcer of other part of right foot with unspecified severity; E11.51 Type 2 diabetes mellitus with diabetic peripheral angiopathy without gangrene; E78.5 Hyperlipidemia, unspecified; I10 Essential (primary) hypertension; I11.0 Hypertensive heart disease with heart failure; I69.328 Other speech and language deficits following cerebral infarction; Z79.4 Long term (current) use of insulin; D64.9 Anemia, unspecified; Z89.512 Acquired absence of left leg below knee; G89.29 Other chronic pain; Z53.29 Procedure and treatment not carried out because of patient's decision for other reasons
CPT/HCPCS: 0241U-QW; 36415; 73630-TC-RT-FY; 76000-TC-FY; 80048; 80053; 82962; 83735; 84100; 84703; 85025; 85027; 85610; 85651; 85730; 86140; 86850; 86870; 86900; 86901; 86902; 87040; 93005; 93010; 93926-TC; 94760; 99285-25; C1760; G0480; J1644

== ENCOUNTER 2023-09-15 16:42 | Observation (INO) | payer OTHER ==
[2023-09-15 20:13] LABS: BASO % 0.4 % (0-2.0); EOS % 9.9 % (0-4.5); HEMATOCRIT 35.1 % (32.4-45.2); HEMOGLOBIN 11.2 GM/dL (10.7-15.3); LYMPH % 25.3 % (8-40); MCH 25.4 pg (25.7-33.7); MEAN CELL VOLUME 79.6 fl (80-96); MEAN PLT VOLUME 8.6 fl (7.5-11.1); MONO % 10.1 % (3.8-10.2); NEUT % 54.3 % (42.8-82.8); PLATELET COUNT 314 10^3/uL (134-434); RBC 4.41 M/mm3 (3.60-5.2); RDW 23.1 % (11.6-15.6)
[2023-09-15 20:29] LABS: INR 1.02 (0.83-1.09); PROTHROMBIN TIME (PATIENT) 11.8 SEC (9.7-13.0)
[2023-09-15 20:41] LABS: POTASSIUM 4.1 mmol/L (3.5-5.1)
[2023-09-15 20:46] LABS: ALBUMIN 3.3 g/dl (3.4-5.0); BLOOD UREA NITROGEN 13.9 mg/dL (7-18); CALCIUM 9.3 mg/dL (8.5-10.1)
[2023-09-15 20:49] LABS: CREATININE 0.9 mg/dL (0.55-1.3)
[2023-09-15 20:50] LABS: BILIRUBIN,TOTAL 0.2 mg/dL (0.2-1); TOT PROT 7.9 g/dl (6.4-8.2)
[2023-09-15 22:27] LABS: ANISOCYTOSIS 1+; MACROCYTOSIS 0; PLATELET ESTIMATE NORMAL
[2023-09-15] MEDS ORDERED: ASPIRIN 325 MG TABLET ONE (23:39)
[2023-09-15] MEDS: ASPIRIN 325 MG TABLET PO ONE (23:40)
[2023-09-16] MEDS ORDERED: oxyCODONE HCL 5 MG TABLET PO PRN (05:33)
[2023-09-16] MEDS: BACLOFEN 10 MG TABLET (FP) PO SCH (06:01)
[2023-09-16] MEDS ORDERED: HYDROmorphone HCL 2 MG TABLET PO PRN (06:28)
[2023-09-16] MEDS ORDERED: NALOXONE HCL 0.4 MG/ML VIAL IVPUSH PRN (06:33)
[2023-09-16] MEDS: metoPROLOL SUCCINATE 25 MG TAB.SR.24H (FP) PO SCH (11:37)
[2023-09-16] MEDS: SERTRALINE HCL 50 MG TABLET (FP) PO SCH (11:37)
[2023-09-16] MEDS: CLOPIDOGREL BISULFATE 75 MG TABLET (FP) PO SCH (11:38)
[2023-09-16] MEDS: ASPIRIN COATED 81 MG TABLET.EC PO SCH (11:38)
[2023-09-16] MEDS: PREGABALIN 50 MG CAPSULE PO SCH (11:38)
[2023-09-16 12:42] VITALS: RESP 18; BMI 23.4
[2023-09-16 15:31] VITALS: BP 119/89; PULSE 73; TEMP 97.9
[2023-09-16] MEDS ORDERED: ROSUVASTATIN CA 40 MG TABLET PO SCH (22:00)
== END 2023-09-16 19:30 ==
LOC: JER 16:42 → INTOOBSV 23:19 → JERBED 23:19 → J4W 09-16 10:35
PROVIDERS: ADMIT Internal Medicine; ATTEND Family Medicine
PROC: 3E033NZ Introduction of Analgesics, Hypnotics, Sedatives into Peripheral Vein, Percutaneous Approach (ICD-10-PCS; principal; 2023-09-15)
DX: I63.9 Cerebral infarction, unspecified (principal); E78.5 Hyperlipidemia, unspecified; I25.10 Atherosclerotic heart disease of native coronary artery without angina pectoris; I50.9 Heart failure, unspecified; I11.0 Hypertensive heart disease with heart failure; E11.43 Type 2 diabetes mellitus with diabetic autonomic (poly)neuropathy; F41.8 Other specified anxiety disorders; K31.84 Gastroparesis; I73.9 Peripheral vascular disease, unspecified; Z95.5 Presence of coronary angioplasty implant and graft; Z95.1 Presence of aortocoronary bypass graft; I25.2 Old myocardial infarction; Z86.73 Personal history of transient ischemic attack (TIA), and cerebral infarction without residual deficits; J40 Bronchitis, not specified as acute or chronic; K29.70 Gastritis, unspecified, without bleeding; Z87.891 Personal history of nicotine dependence; Z88.8 Allergy status to other drugs, medicaments and biological substances
CPT/HCPCS: 0241U-QW; 36415; 70450-TC; 80053; 84484; 85025; 85610; 85730; 93005; 93010; 96374; 99285-25; G0378; J0475